=== PATIENT | female | born 1985 | race Caucasian/White ===

== ENCOUNTER → 2019-04-30 17:04 | Outpatient (CLI) | payer OTHER, SELFPAY ==
--- NOTE | 2019-04-30 17:35 | MRI_ITS ---
HISTORY: Multiple sclerosis. No new symptoms. Follow-up study. EXAM/TECHNIQUE: MR Brain WO/W Contrast: 1.5 Carola. Multiplanar, multisequence. Dotarem administered intravenously, dose not provided. COMPARISON: 04/16/18 MRI brain. FINDINGS: # of images incl. paperwork: 349 The number and distribution of supratentorial white matter lesions are not significantly changed compared to the previous study. As before these are scattered throughout the subcortical, centrum semiovale, bryant radiata, and callosal/pericallosal white matter. No new enhancement or restricted diffusion. Again demonstrated is faint enhancement within the anteromedial left temporal cortex, series 10 image is 9 and 10 and series 11 images 11-14. No associated mass-effect, no appreciable signal abnormality on the other sequences in this location. The posterior fossa is unremarkable. Mild hyperostosis frontalis, otherwise the calvarium is unremarkable. Paranasal sinuses, mastoid air cells patent. Major flow voids preserved. MRI/Brain W/WO Contrast IMPRESSION: No significant change compared to 04/16/18. Chronic white matter lesions compatible with MS similar to previous. Faint enhancing lesion in the anteromedial left temporal cortex, unchanged. The lack of mass-effect and lack of appreciable signal abnormality on other sequences suggest that this is a chronic incidental vascular or other benign lesion. It would be very unusual for a demyelinating plaque to enhance for this long. Neoplasm also unlikely. Continued attention to this area on follow-up is suggested. at 1950 Reported and signed by: Roshan Grigsby MD Electronically Signed: Roshan Grigsby, at 19:48 EDT Tel , Service support ,
== END ==
PROVIDERS: Family Provider Family Medicine; PCP Family Medicine
DX: G35 Multiple sclerosis (principal)
CPT/HCPCS: 70553; A9575

== ENCOUNTER → 2019-12-10 08:20 | Outpatient (CLI) | payer OTHER, SELFPAY ==
[2019-12-10 09:18] LABS: Cholesterol 169 mg/dL (200); High Density Lipoprotein 70 mg/dL; Thyroid Stim Hormone (TSH) 0.17 uIU/mL (0.358-3.74); Triglycerides 148 mg/dL; Very Low Density Lipoprotein 30 mg/dL (5-40)
[2019-12-10 09:20] LABS: Hemoglobin A1c 5.1 % (4.2-6.3)
== END ==
PROVIDERS: PCP Family Medicine; Referring Provider Family Medicine; Visit Provider Family Medicine
DX: E89.0 Postprocedural hypothyroidism (principal); E78.2 Mixed hyperlipidemia; Z13.1 Encounter for screening for diabetes mellitus
CPT/HCPCS: 36415; 80061; 83036; 84443

== ENCOUNTER → 2020-02-15 08:41 | Outpatient (CLI) | payer OTHER, SELFPAY ==
[2016-07-03 07:41] VITALS: BMI 37.8
[2020-02-15 09:44] LABS: Thyroid Stim Hormone (TSH) 0.18 uIU/mL (0.358-3.74)
== END ==
PROVIDERS: PCP Family Medicine; Referring Provider Family Medicine; Visit Provider Family Medicine
DX: E89.0 Postprocedural hypothyroidism (principal)
CPT/HCPCS: 36415; 84443

== ENCOUNTER 2020-03-03 13:58 | Emergency (ER) | payer OTHER, SELFPAY ==
[2020-03-03 13:59] VITALS: BP 169/97; PULSE 115; RESP 17; TEMP 36.8; O2SAT 98; BMI 40.4
--- NOTE | 2020-03-03 14:01 | NURSING ---
NO OLD EKGS
--- NOTE | 2020-03-03 14:11 | EKG12_ITS ---
Test Reason : CP Blood Pressure : / mmHG Vent. Rate : 117 BPM Atrial Rate : 117 BPM P-R Int : 142 ms QRS Dur : 142 ms QT Int : 360 ms P-R-T Axes : 047 -31 077 degrees QTc Int : 502 ms Sinus tachycardia Left axis deviation Left bundle branch block Abnormal ECG Confirmed by JEFFERSON REN ([id number]), news videotape editor DAVID TATUM ([id number]) on 03/07/2020 11:25:33 AM Referred By: Confirmed By:JEFFERSON REN
[2020-03-03 14:20] LABS: Absolute Lymphocyte Count 0.89 X10^3/uL (0.83-4.51); Absolute Neutrophil Count 5.7 X10^3/uL (2.0-7.7); Basophil# 0.02 X10^3/uL; Basophil% 0.3 % (0-1); Eosinophil# 0.08 X10^3/uL; Eosinophils% 1.1 % (0-5); Hematocrit 40.5 % (37-47); Hemoglobin 13.7 g/dL (12.0-15.0); Lymphocyte # 0.89 X10^3/ul (4.0); Lymphocyte % 12.4 % (19-41); Mean Corp Hgb Conc 33.8 g/dL (32-36); Mean Corpuscular Volume 85.6 fL (81-99); Mean Platelet Vol. 10.1 fl (6.2-12.0); Monocyte# 0.47 X10^3/uL; Monocyte% 6.5 % (0-10); NRBC Flagged by Analyzer 0 % (0-5); Neutrophil % 79.4 % (47-70); Platelet Count 333 K/mm3 (150-450); RBC Distribution Width CV 12.5 % (11.6-14.6); RBC Distribution Width SD 38.6 fl (35.1-43.9); Red Blood Count 4.73 M/mm3 (4.2-5.4); White Blood Count 7.2 K/mm3 (4.4-11.0)
[2020-03-03 14:26] VITALS: BP 169/97; PULSE 103; RESP 18; O2SAT 96
--- NOTE | 2020-03-03 14:29 | RAD_ITS ---
STUDY: X-RAY CHEST REASON FOR EXAM: Female, 34 years old. CHEST PAIN AND PALPITATIONS WITH PALPITATIONS STARTING YESTERDAY -- HX cardiomyapathy-from broken heart syndrome, TAKOSUBTO TECHNIQUE: Single AP portable view of the chest. COMPARISON: None. FINDINGS: EKG electrodes are seen. The lungs are clear and expanded. There is no demonstrated pleural abnormality. Normal size heart. Normal mediastinum and mateo. Normal visualized pulmonary arteries. Normal visualized aortic arch and descending thoracic aorta. Normal visualized thoracic spine. Normal visualized ribs, clavicles, and shoulders. There is no demonstrated abnormality of the visualized soft tissue structures of the upper abdomen. RAD/Chest 1 View (Portable) IMPRESSION: Normal x-ray examination of the chest. Electronically Signed: Rex Bach, at 14:41 EDT , Service support ,
[2020-03-03 14:35] LABS: D-Dimer Quantitative (DVT/PE) <= 0.27 FEU/ug/m (0.27-0.49)
--- NOTE | 2020-03-03 14:35 | ED.VISSUMM ---
- ER Visit Summary Date of Service: 03/03/20 Chief Complaint: [Palpitations] History of Present Illness: The patient is a 34 F [presents to the emergency department with complaint of palpitations that started yesterday. Patient attributed to increase stress at work. Patient states she does not drink excessive caffeine and normally just drinks a cup of coffee per day. Patient denies any palpitations today since waking up this morning. Patient is concerned because she has a history of broken heart syndrome. Patient has history of cardiomyopathy. Patient states normally her ejection fraction is 35 to 40%. Patient also has history of MS as well as anxiety and hypothyroidism. Patient recently had a TSH that was very low at 0.18 and had her levothyroxine dose decreased. She denies recent illness.] Physical Examination: [HEENT-PERRLA, EOMI. Cranial nerves II through XII grossly intact. TMs clear. Mucous membranes moist. No adenopathy. Cardiovascular-regular rate and rhythm without murmur or ectopy Lungs-clear to auscultation, chest wall stable without crepitus or subcu emphysema Abdomen-normoactive bowel sounds, soft, nontender, no rebound or rigidity, no peritoneal signs. Extremities-intact ?4, normal range of motion, normal pulses, atraumatic] Test Results: [EKG obtained arrival showed a sinus rhythm with a ventricular rate of 117 bpm with a left bundle branch block.] CBC with differential obtained was normal. Chemistries unremarkable. Troponin less than 0.15. D-dimer was less than 0.27. Chest x-ray showed nothing acute. Emergency Department Course and Treatment: [Had an IV line established on arrival and placed on quality assurance monitor final.] Treatment Plan: [Patient advised to follow-up with her director of academic support within next 3 to 5 days. Patient is advised to decrease her caffeine intake. Patient advised to continue with her current medications. Advised to return if chest pain, palpitations, increasing shortness of breath, or condition should worsen anyway.] Patient to continue to follow-up with her primary care physician regarding her thyroid medications as they may need further adjustment. Disposition: [Discharged home in stable condition] Impression: [Palpitations-resolved] This note was generated with [employer] software. It may contain incorrect words, spelling, and punctuation that were not noted in review of the chart prior to signing ED Disposition - Plan for ED Patient: Referrals: Isael Morrissey MD [Primary Care Provider] -
[2020-03-03 14:37] LABS: Anion Gap 9 (5-15); BUN 8 mg/dL (7-18); BUN/Creat Ratio 8.9 RATIO (10-20); Calcium,Total 9.3 mg/dL (8.5-10.1); Chloride 104 mmol/L (98-107); EST Glomerular Filtration Rate 76 mL/min (>60); Est Glom Filt Rate - Afr Amer 91 mL/min (>60); Estimated Creatinine Clearance 93.45 ml/min; Glucose 149 mg/dL (74-106); Potassium 4.2 mmol/L (3.5-5.1); Sodium Level 137 mmol/L (136-145)
--- NOTE | 2020-03-03 15:24 | ED.DEP ---
ED Disposition - Plan for ED Patient: Instructions: ED Palpitations Referrals: Isael Morrissey MD [Primary Care Provider] - 3-5 Days Additional Instructions: see your software integration developer if symptoms persist
[2020-03-03 15:35] VITALS: BP 146/88; PULSE 104; RESP 18; O2SAT 97
[2020-03-03 15:37] VITALS: RESP 16
== END 2020-03-03 15:37 | disposition home or self-care (01) ==
PROVIDERS: Emergency Provider Emergency Medicine; PCP Family Medicine
DX: R00.2 Palpitations (principal); I44.7 Left bundle-branch block, unspecified; F41.9 Anxiety disorder, unspecified; E03.9 Hypothyroidism, unspecified; G35 Multiple sclerosis
CPT/HCPCS: 71045; 80048; 84484; 85025; 85379; 93005; 99282; A4216

== ENCOUNTER → 2020-04-19 09:24 | Outpatient (CLI) | payer OTHER, SELFPAY ==
[2020-04-19 10:40] LABS: Thyroid Stim Hormone (TSH) 2.86 uIU/mL (0.358-3.74)
== END ==
PROVIDERS: PCP Family Medicine; Referring Provider Family Medicine; Visit Provider Family Medicine
DX: E89.0 Postprocedural hypothyroidism (principal)
CPT/HCPCS: 36415; 84443

== ENCOUNTER → 2020-06-06 09:22 | Outpatient (CLI) | payer OTHER, SELFPAY ==
[2020-06-02 15:51] VITALS: BMI 37.8
== END ==
PROVIDERS: PCP Family Medicine; Referring Provider Internal Medicine Cardiovascular Disease; Visit Provider Internal Medicine Cardiovascular Disease
DX: R00.2 Palpitations (principal)
CPT/HCPCS: 93225; 93226

== ENCOUNTER → 2020-06-07 08:29 | Outpatient (CLI) | payer OTHER, SELFPAY ==
[2020-06-02 15:51] VITALS: BMI 37.8
[2020-06-07 09:47] LABS: Thyroid Stim Hormone (TSH) 2.81 uIU/mL (0.358-3.74)
== END ==
PROVIDERS: PCP Family Medicine; Visit Provider Family Medicine
DX: G35 Multiple sclerosis (principal); Z79.899 Other long term (current) drug therapy; I10 Essential (primary) hypertension; E78.2 Mixed hyperlipidemia; E88.81 Metabolic syndrome and other insulin resistance; E89.0 Postprocedural hypothyroidism
CPT/HCPCS: 36415; 84443

== ENCOUNTER → 2020-06-21 06:49 | Outpatient (CLI) | payer OTHER, SELFPAY ==
[2020-06-02 15:51] VITALS: BMI 37.8
--- NOTE | 2020-06-21 06:50 | ECHOCS_ITS ---
Reason For Study: CARDIOMYOPATHY Procedure This was a 2D Doppler, Color Flow transthoracic echocardiogram. The study was technically difficult. Contrast injection was performed. Exam performed in department. Left Ventricle Normal LV size. Mild segmental systolic dysfunction (see wall motion). The estimated ejection fraction is 40 %. No evidence for diastolic dysfunction. Basal inferoseptal: Hypokinetic. Mid- Anterior : Akinetic. Mid-Inferior: Hypokinetic. Mid-inferoseptal : Hypokinetic. Mid-anteroseptal : Akinetic. Anterior Holden : Akinetic. Inferior Holden : Hypokinetic. Lateral Holden : Akinetic. Septal Holden : Akinetic. Right Ventricle Normal RV size. Normal systolic function. Atria Normal left atrium. Normal right atrium. No doppler evidence for ASD. Mitral Valve There is no mitral annular calcification. Normal mitral valve. Trivial mitral valve insufficiency. Tricuspid Valve Normal tricuspid valve. Trivial tricuspid valve insufficiency. Right ventricular systolic pressure estimated to be 17 mmHg. Aortic Valve Based upon the 2D echocardiographic images obtained a bicuspid aortic valve cannot necessarily be excluded. Pulmonic Valve The pulmonic valve is not well visualized. Trivial pulmonic valve insufficiency. Great Vessels Normal sized aortic root. Pericardium/Pleural No pericardial effusion. Medication Diluted definity 3ml given slow IV push to enhance endocardial definition. MMode/2D Measurements & Calculations LVIDd: 5.5 cm IVSd: 0.77 cm Ao root diam: 2.9 cm LVIDs: 4.0 cm LVPWd: 0.86 cm RVDd: 2.5 cm FS: 28.0 % LAV(MOD-bp): 40.8 ml LVAd ap4: 43.4 cm2 SV(MOD-sp4): 86.1 ml LAV(MOD-bp) Indexed: 17.6 ml/m2 EDV(MOD-sp4): 173.0 ml LAV(MOD-sp2): 54.1 ml EDV(sp4-el): 176.7 ml LAV(MOD-sp4): 25.3 ml LVAs ap4: 29.3 cm2 ESV(MOD-sp4): 86.9 ml ESV(sp4-el): 88.8 ml EF(MOD-sp4): 49.8 % EF(sp4-el): 49.8 % SV(sp4-el): 88.0 ml LA A4 area: 11.3 cm2 LA dimension(2D): 3.6 cm RA A4 area: 7.3 cm2 Time Measurements MV dec time: 0.20 sec Doppler Measurements & Calculations MV E max galen: 86.2 cm/sec Lat Peak E' Galen: 10.0 cm/sec Med Peak E' Galen: 7.4 cm/sec MV A max galen: 71.7 cm/sec E/E' lat: 8.6 E/E' med: 11.6 MV E/A: 1.2 Ao V2 max: 142.6 cm/sec LV V1 max: 137.7 cm/sec PA V2 max: 109.2 cm/sec Ao max P.1 mmHg LV V1 max P.6 mmHg TR max galen: 186.0 cm/sec TR max P.8 mmHg Interpretation Summary The study was technically difficult. Contrast injection was performed. Mild segmental systolic dysfunction (see wall motion). The estimated ejection fraction is 40 %. Trivial mitral valve insufficiency. Trivial tricuspid valve insufficiency. Based upon the 2D echocardiographic images obtained a bicuspid aortic valve cannot necessarily be excluded. Trivial pulmonic valve insufficiency. Right ventricular systolic pressure estimated to be 17 mmHg. No evidence for diastolic dysfunction. Ordering Physician: Alfredito Hassan Referring Physician: MAKENNA FISH Performed By: Aida Michelle RDCS
--- NOTE | 2020-06-21 08:32 | STRESSREP ---
Stress Test Report Date: 06-21-2020 Procedure: Pharmacologic stress nuclear imaging study Indications: Chest pain; abnormal ECG-left bundle branch block; history of Takotsubo Syndrome Consent: Per the patient Procedure: The patient underwent pharmacologic (Regadenoson) evaluation with a peak heart rate of 105 beats per minute (57 %predicted maximal heart rate) and a peak blood pressure of 110/80 mmHg. The baseline ECG demonstrated sinus rhythm; left bundle branch block. The peak pharmacologic ECG demonstrated no obvious ECG changes. There were no cardiac dysrhythmias pretest, during pharmacologic infusion, or recovery. There was no complaint of chest discomfort during pharmacologic infusion or recovery. The examination was discontinued secondary to completion of protocol. Impression: 1. Pharmacologic (Regadenoson) evaluation 2. Peak pharmacologic ECG with continued left bundle branch block with no obvious ECG changes. 3. There were no cardiac dysrhythmias pretest, during pharmacologic infusion, or recovery. 4. Nuclear images pending Myocardial perfusion imaging study: Technique: The patient was injected with 14.5 millicuries of technetium 99m Cardiolite and subsequently rest SPECT Cardiolite nuclear imaging was obtained in the horizontal long, vertical long, and short axis views. The patient underwent pharmacologic (Regadenoson) evaluation with a peak heart rate of 105 beats per minute (57 % percent predicted maximal heart rate) and a peak blood pressure of 110/80 mmHg. The patient was injected with 44.8 millicuries of technetium 99m Cardiolite and subsequently stress SPECT Cardiolite nuclear imaging was obtained in the horizontal long, vertical long, and short axis views. A gated Cardiolite study at peak stress was obtained. Interpretation: Rest and stress SPECT Cardiolite nuclear imaging status post realignment, normalization, and attenuation correction demonstrate diminished absence of myocardial perfusion/tracer uptake in portions of the mid to distal anterior, mid to distal anteroseptal, anterior apical, and septal apical segments without significant change between rest and stress. There is diminished end systolic thickening and brightening in the aforementioned areas. The gated Cardiolite study demonstrates diminished myocardial thickening and inward wall motion. The reported LVEF is 41 %. Impression: 1. And stress SPECT Cardiolite nuclear imaging demonstrate myocardial perfusion changes appearing compatible with the effects of previous myocardial injury/infarction involving portions of the mid to distal anterior, mid to distal anteroseptal, anteroapical, and septal apical segments with no myocardial perfusion changes considered diagnostic for associated stress-induced myocardial ischemia. 2. The gated Cardiolite study reports an LVEF of 41 %. This note was generated with [employer] software. It may contain incorrect words, spelling, and punctuation that were not noted in checking the note before signing.
== END ==
PROVIDERS: PCP Family Medicine; Referring Provider Internal Medicine Cardiovascular Disease; Visit Provider Internal Medicine Cardiovascular Disease
DX: I11.0 Hypertensive heart disease with heart failure (principal); I50.22 Chronic systolic (congestive) heart failure; I44.7 Left bundle-branch block, unspecified; R00.2 Palpitations; E78.2 Mixed hyperlipidemia
CPT/HCPCS: 78452; 93017; 93306; A9500; Q9957; A4216; C8929; J2785

== ENCOUNTER 2020-10-13 12:21 | Outpatient (CLI) | payer OTHER, SELFPAY ==
[2020-10-12 11:45] VITALS: BMI 36.0
[2020-10-13 12:33] VITALS: BP 120/88; PULSE 90; RESP 20; TEMP 36.5; O2SAT 99; BMI 36.3
[2020-10-13 13:29] VITALS: BP 117/79; PULSE 82; RESP 18; TEMP 36.4; O2SAT 99
[2020-10-13 13:59] VITALS: BP 120/76; PULSE 83; RESP 18; TEMP 36.3; O2SAT 100
[2020-10-13 14:10] VITALS: BP 125/80; PULSE 84; RESP 18; TEMP 36.4; O2SAT 100
[2020-10-13 15:01] VITALS: BP 123/85; PULSE 84; RESP 18; TEMP 37; O2SAT 100
[2020-10-13 15:10] VITALS: BP 123/85; PULSE 84; RESP 18; TEMP 37; O2SAT 100
== END 2020-10-13 15:04 | disposition home or self-care (01) ==
PROVIDERS: PCP Family Medicine; Referring Provider Nurse Practitioner Acute Care; Visit Provider Nurse Practitioner Acute Care
DX: U07.1 COVID-19 (principal)
CPT/HCPCS: 96365; J7050; M0239; Q0239

== ENCOUNTER → 2020-11-11 08:55 | Outpatient (CLI) | payer OTHER, SELFPAY ==
[2020-10-13 12:33] VITALS: BMI 36.3
--- NOTE | 2020-11-11 08:57 | US_ITS ---
STUDY: ABDOMINAL ULTRASOUND REASON FOR EXAM: Female, 35 years old. LLQ PAIN TECHNIQUE: Transabdominal ultrasound was performed with real-time and static loomis scale imaging. TECHNICAL QUALITY: Adequate. COMPARISON: Comparison is made with prior study dated 09/15/2016. FINDINGS: Liver: The liver measures 17.4 cm. There is increased echogenicity consistent with fatty infiltration. The bile ducts are within normal limits. There is hepatic color flow. The direction of portal flow is hepatopetal. There is no demonstrated mass lesion. Portal vein measurement: Gallbladder: Normal distended gallbladder. The gallbladder wall measures 2.7 mm. There is a negative sonographic Overton''s sign. There is no pericholecystic fluid. There are no gallstones. Common Bile Duct (C.B.D.): The common bile duct measures 5.0 mm. Pancreas: Normal size of the head, body and tail of the pancreas. There is normal echogenicity of the pancreas. There is no demonstrated pancreatic mass or cyst. Spleen: Normal size of the spleen. The spleen measures 11.8 cm x 4.6 cm x 4.7 cm. Right Kidney: Normal size of the right kidney. The right kidney measures 13.8 cm x 6.2 cm x 5.3 cm. Normal renal cortex. The right cortex measures 1.8 cm. There is no demonstrated renal mass or cyst. There is no right hydronephrosis. Left Kidney: Normal size of the left kidney. The left kidney measures 12.5 cm x 5.7 cm x 5.7 cm. Normal renal cortex. The left cortex measures 2.5 cm. There is no demonstrated renal mass or cyst. There is no left hydronephrosis. Aorta: Unremarkable I.V.C.: The IVC is patent. There is no ascites. US/Abdomen Complete IMPRESSION: Fatty infiltration of the liver. Electronically Signed: Rex Bach MD at 10:36 EST , Service support ,
--- NOTE | 2020-11-11 12:06 | US_ITS ---
STUDY: ULTRASOUND OF THE FEMALE PELVIS - COMPLETE REASON FOR EXAM: Female, 35 years old. LLQ PAIN LMP: 10/21/2020 TECHNIQUE: Transabdominal and Transvaginal TECHNICAL QUALITY: Adequate. COMPARISON: None. FINDINGS: The uterus is retroverted and is in a midline position. The uterus measures 8.2 cm x 4.8 cm x 2.9 cm. Normal uterine cervix. The endometrium measures 5 mm in thickness, and is hyperechoic. There is no demonstrated endometrial mass. There is no demonstrated myometrial mass. I.U.D. - The patient does not have an I.U.D. The right ovary is visualized. The right ovary measures 2.5 cm x 2.2 cm x 1.7 cm. There is no right ovarian cyst or ovarian mass. There is no visualized right adnexal mass or complex lesion. There is normal arterial and normal venous vascularity. The left ovary is visualized. The left ovary measures 2.4 cm x 2.1 cm x 1.4 cm. There is no left ovarian cyst or ovarian mass. There is no visualized left adnexal mass or complex lesion. There is normal arterial and normal venous vascularity. There is no fluid in the cul-de-sac. The pre void volume of the bladder was 1064 ml. Polycystic ovary disease: No. US/Pelvic (Non ) IMPRESSION: Normal female pelvis. Electronically Signed: Rex Bach MD at 14:41 EST , Service support ,
--- NOTE | 2020-11-11 12:06 | US_ITS ---
STUDY: ULTRASOUND OF THE FEMALE PELVIS - COMPLETE REASON FOR EXAM: Female, 35 years old. LLQ PAIN LMP: 10/21/2020 TECHNIQUE: Transabdominal and Transvaginal TECHNICAL QUALITY: Adequate. COMPARISON: None. FINDINGS: The uterus is retroverted and is in a midline position. The uterus measures 8.2 cm x 4.8 cm x 2.9 cm. Normal uterine cervix. The endometrium measures 5 mm in thickness, and is hyperechoic. There is no demonstrated endometrial mass. There is no demonstrated myometrial mass. I.U.D. - The patient does not have an I.U.D. The right ovary is visualized. The right ovary measures 2.5 cm x 2.2 cm x 1.7 cm. There is no right ovarian cyst or ovarian mass. There is no visualized right adnexal mass or complex lesion. There is normal arterial and normal venous vascularity. The left ovary is visualized. The left ovary measures 2.4 cm x 2.1 cm x 1.4 cm. There is no left ovarian cyst or ovarian mass. There is no visualized left adnexal mass or complex lesion. There is normal arterial and normal venous vascularity. There is no fluid in the cul-de-sac. The pre void volume of the bladder was 1064 ml. Polycystic ovary disease: No. US/Transvaginal Non- IMPRESSION: Normal female pelvis. Electronically Signed: Rex Bach MD at 14:41 EST , Service support ,
== END ==
PROVIDERS: PCP Family Medicine; Referring Provider Family Medicine; Visit Provider Family Medicine
DX: R10.32 Left lower quadrant pain (principal)
CPT/HCPCS: 76700; 76830; 76856; 93976

== ENCOUNTER → 2020-11-24 13:17 | Outpatient (CLI) | payer OTHER, SELFPAY ==
--- NOTE | 2020-11-24 16:45 | MRI_ITS ---
STUDY: MRI BRAIN WITH AND WITHOUT CONTRAST REASON FOR EXAM: Female, 35 years old. Multiple sclerosis, new symptoms TECHNIQUE: Standardized multiplanar fat and water weighted pulse sequences were obtained. 20ml Dotarem via IV was administered for the contrast portion of the examination. COMPARISON: 04/30/2019 FINDINGS: Normal size of the ventricles and extra-axial spaces for the patient''s age. There are multiple foci of increased signal intensity within the periventricular white matter on the FLAIR and T2-weighted imaging sequences without mass effect or restricted diffusion. Some of the lesions involving the callosal septal interface and are consistent with multiple sclerosis Normal bilateral basal ganglia. Normal thalami. There is no extra-axial fluid accumulation. Normal flow voids within the major intracranial circulation suggesting patency by spin echo criteria. Normal venous enhancement. There are no enhancing plaques to suggest the presence of acute demyelination.. Normal sella turcica, pituitary gland, infundibular stalk, optic chiasm and hypothalamus. Normal tectal plate and pineal gland. Normal midbrain, shazia and medulla. Normal cerebellum. Normal basal cisterns. Normal bilateral temporal bones. Normal bilateral internal auditory canals. No demonstrated orbital abnormality, within the constraints of a routine brain study. Normal visualized paranasal sinuses. Normal calvarium and skull base. Normal visualized soft tissue structures. Normal visualized upper cervical spine. No significant change in plaque burden since previous exam MRI/Brain W/WO Contrast IMPRESSION: Findings consistent with known multiple sclerosis which appears stable since previous study. No evidence for active demyelination Electronically Signed: Isael Pelayo MD at 19:52 EST , Service support ,
--- NOTE | 2020-11-24 17:30 | MRI_ITS ---
STUDY: MRI CERVICAL SPINE WITH AND WITHOUT CONTRAST REASON FOR EXAM: Female, 35 years old. Multiple sclerosis, new symptoms TECHNIQUE: Standardized fat and water weighted pulse sequences were obtained in the sagittal and axial following administration of 20ml Dotarem via IV. COMPARISON: None FINDINGS: Normal foramen magnum and brainstem-cervical cord junction. Normal craniovertebral junction. Normal anterior atlantoaxial articulation. Normal odontoid process. Normal cervical lordosis. Normal vertebral bodies and posterior osseous elements. C2-3: Normal endplates. Normal disc height, signal and morphology. Normal central canal and intervertebral neural foramina. C3-4: Normal endplates. Normal disc height, signal and morphology. Normal central canal and intervertebral neural foramina. C4-5: Normal endplates. Normal disc height, signal and morphology. Normal central canal and intervertebral neural foramina. C5-6: Normal endplates. Normal disc height, signal and morphology. Normal central canal and intervertebral neural foramina. C6-7: Normal endplates. Normal disc height, signal and morphology. Normal central canal and intervertebral neural foramina. C7-T1: Normal endplates. Normal disc height, signal and morphology. Normal central canal and intervertebral neural foramina. Normal cervical cord. Normal visualized soft tissue structures. MRI/Spine Cervical W/WO Contrast IMPRESSION: Normal unenhanced and enhanced MR examination of the cervical spine. Electronically Signed: Isael Pelayo MD at 20:42 EST , Service support ,
--- NOTE | 2020-11-24 18:15 | MRI_ITS ---
STUDY: MRI THORACIC SPINE WITH AND WITHOUT CONTRAST REASON FOR EXAM: Female, 35 years old. Multiple sclerosis, new symptoms TECHNIQUE: 20ml Dotarem via IV was administered for the contrast portion of the examination. COMPARISON: None. FINDINGS: Normal kyphosis of the thoracic spine. There is no substantial scoliosis. T1-2, T2-3, T3-4, T4-5, T5-6, T6-7, T7-8, T8-9, T9-10, T10-11, T11-12: Normal endplates. Normal disc hydration, heights and morphology of the corresponding intervertebral discs. Normal central canal and intervertebral neural foramina at the corresponding levels. Normal visualized thoracic cord. Normal conus medullaris that terminates at the . The soft tissue structures are unremarkable. There is no enhancing abnormality. MRI/Spine Thoracic W/WO Contrast IMPRESSION: Normal unenhanced and enhanced MRI examination of the thoracic spine. Electronically Signed: Isael Pelayo MD at 20:44 EST , Service support ,
== END ==
PROVIDERS: PCP Family Medicine
DX: G35 Multiple sclerosis (principal)
CPT/HCPCS: 70553; 72156; 72157; A9575

== ENCOUNTER → 2021-01-13 06:45 | Outpatient (CLI) | payer OTHER, SELFPAY ==
[2020-12-01 16:28] VITALS: BMI 36.5
[2021-01-13 06:49] LABS: Mucous, Urine 0 SEEN /hpf (<or=2+); Red Blood Cells-Urine 0 SEEN /hpf (0-5); White Blood Cells 0 SEEN /hpf (0-5)
[2021-01-13 07:16] LABS: Absolute Lymphocyte Count 1.13 X10^3/uL (0.83-4.51); Absolute Neutrophil Count 3.2 X10^3/uL (2.0-7.7); Basophil# 0.02 X10^3/uL; Basophil% 0.4 % (0-1); Color, Urine Yellow (Yellow); Eosinophil# 0.13 X10^3/uL; Eosinophils% 2.6 % (0-5); Glucose, Dipstick Normal (Normal); Hematocrit 40.1 % (37-47); Hemoglobin 13.3 g/dL (12.0-15.0); Ketone-Dipstick Negative (Negative); Leukocyte Esterase-Dipstick Negative /ul (Negative); Lymphocyte # 1.13 X10^3/ul (4.0); Lymphocyte % 22.6 % (19-41); Mean Corp Hgb Conc 33.2 g/dL (32-36); Mean Corpuscular Hgb 29.3 pg (27.0-32.0); Mean Corpuscular Volume 88.3 fL (81-99); Mean Platelet Vol. 10.5 fl (6.2-12.0); Monocyte# 0.48 X10^3/uL; Monocyte% 9.6 % (0-10); NRBC Flagged by Analyzer 0 % (0-5); Neutrophil # 3.22 X10^3/uL (2.7-7.7); Neutrophil % 64.6 % (47-70); Nitrite-Dipstick Negative (Negative); Occult Blood-Urine Negative /ul (Negative); Platelet Count 305 K/mm3 (150-450); Protein-Dipstick Negative (Negative); RBC Distribution Width CV 12.4 % (11.6-14.6); RBC Distribution Width SD 39.9 fl (35.1-43.9); Red Blood Count 4.54 M/mm3 (4.2-5.4); Specific Gravity, Urine 1.015 (1.002-1.030); Urine Bilirubin Dipstick Negative (Negative); Urine Clarity Clear (Clear); Urine Urobilinogen Normal (Normal); Urine pH 6.5 (5.0 - 8.0)
[2021-01-13 07:23] LABS: Bacteria RARE /hpf (None Seen); Squamous Epithelial Cells - UA 0-5 SEEN /hpf (5-10)
[2021-01-13 07:46] LABS: AST(SGOT) 12 U/L (15-37); Alanine Aminotransfer ALT/SGPT 21 U/L (13-56); Albumin, Serum 4.1 g/dL (3.2-5.0); Alkaline Phosphatase 44 U/L (45-117); Anion Gap 5 (5-15); BUN 16 mg/dL (7-18); Calcium,Total 8.8 mg/dL (8.5-10.1); Chloride 103 mmol/L (98-107); Cholesterol 204 mg/dL (200); EST Glomerular Filtration Rate 85 mL/min (>60); Est Glom Filt Rate - Afr Amer 103 mL/min (>60); Globulin 4.3 g/dL (2.2-4.2); Glucose 97 mg/dL (74-106); High Density Lipoprotein 80 mg/dL; Potassium 4.1 mmol/L (3.5-5.1); Protein, Total 8.4 g/dL (6.4-8.2); Sodium Level 134 mmol/L (136-145); Triglycerides 146 mg/dL; Very Low Density Lipoprotein 29 mg/dL (5-40)
== END ==
PROVIDERS: PCP Family Medicine; Visit Provider Family Medicine
DX: I11.0 Hypertensive heart disease with heart failure (principal); I50.22 Chronic systolic (congestive) heart failure; E89.0 Postprocedural hypothyroidism; F41.1 Generalized anxiety disorder; E78.2 Mixed hyperlipidemia
CPT/HCPCS: 36415; 80053; 80061; 81001; 84443; 85025

== ENCOUNTER → 2021-03-09 12:47 | Outpatient (CLI) | payer OTHER, SELFPAY ==
[2020-12-01 16:28] VITALS: BMI 36.5
[2021-03-09 14:42] LABS: T4 Free Direct 1.04 ng/dL (0.76-1.46); Thyroid Stim Hormone (TSH) 3.97 uIU/mL (0.358-3.74)
== END ==
PROVIDERS: PCP Family Medicine; Referring Provider Physician Assistant; Visit Provider Physician Assistant
DX: E89.0 Postprocedural hypothyroidism (principal)
CPT/HCPCS: 36415; 84439; 84443

== ENCOUNTER → 2021-04-04 10:29 | Outpatient (CLI) | payer OTHER, SELFPAY ==
[2020-12-01 16:28] VITALS: BMI 36.5
[2021-03-30 16:17] VITALS: BMI 36.9
[2021-04-04 12:17] LABS: Thyroid Stim Hormone (TSH) 6.41 uIU/mL (0.358-3.74)
== END ==
LOC: LAB.FUTURE 10:30 → LAB 10:34
PROVIDERS: PCP Family Medicine; Referring Provider Physician Assistant; Visit Provider Physician Assistant
DX: E89.0 Postprocedural hypothyroidism (principal)
CPT/HCPCS: 36415; 84443

== ENCOUNTER → 2021-04-12 07:55 | Outpatient (CLI) | payer OTHER, SELFPAY ==
[2021-03-30 16:17] VITALS: BMI 36.9
--- NOTE | 2021-04-12 07:57 | ECHOD_ITS ---
Reason For Study: TAKOTSUBO SYNDROME Procedure This was a 2D Doppler, Color Flow transthoracic echocardiogram. The study was technically difficult. Exam performed in department. Left Ventricle Normal LV size. Mild segmental systolic dysfunction (see wall motion). The estimated ejection fraction is 45 %. Diastolic function is indeterminate. Infero-Basal: Hypokinetic. Basal inferoseptal: Hypokinetic. Mid-Posterior: Hypokinetic. Mid-Inferior: Hypokinetic. Mid-inferoseptal : Hypokinetic. Mid-anteroseptal : Akinetic. [place] : Hypokinetic. Right Ventricle Normal RV size. Normal systolic function. Atria Normal left atrium. Normal right atrium. No doppler evidence for ASD. Mitral Valve There is no mitral annular calcification. Normal mitral valve. Trivial mitral valve insufficiency. Tricuspid Valve Normal tricuspid valve. Trivial tricuspid valve insufficiency. Unable to estimate RV systolic pressure/pulmonary artery pressure due to technically difficult study. Aortic Valve Trisinus/trileaflet aortic valve. Mild focal aortic valve calcification. Pulmonic Valve The pulmonic valve is not well visualized. Great Vessels Normal sized aortic root. Pericardium/Pleural No pericardial effusion. MMode/2D Measurements & Calculations LVIDd: 5.5 cm IVSd: 0.90 cm Ao root diam: 2.9 cm LVIDs: 4.1 cm LVPWd: 0.91 cm RVDd: 2.5 cm FS: 24.1 % LAV(MOD-bp): 39.6 ml LVAd ap4: 39.8 cm2 LVAd ap2: 39.9 cm2 LAV(MOD-bp) Indexed: 17.0 ml/m2 LVLd ap4: 9.2 cm LVLd ap2: 9.6 cm LAV(MOD-sp2): 40.2 ml EDV(MOD-sp4): 144.0 ml EDV(MOD-sp2): 143.1 ml LAV(MOD-sp4): 36.7 ml EDV(sp4-el): 147.3 ml EDV(sp2-el): 140.5 ml LVAs ap4: 29.4 cm2 LVAs ap2: 25.2 cm2 LVLs ap4: 8.3 cm LVLs ap2: 8.2 cm ESV(MOD-sp4): 86.6 ml ESV(MOD-sp2): 64.0 ml ESV(sp4-el): 88.7 ml ESV(sp2-el): 65.9 ml EF(MOD-sp4): 39.9 % EF(MOD-sp2): 55.2 % EF(sp4-el): 39.8 % SV(MOD-sp4): 57.4 ml SV(MOD-sp2): 79.0 ml SV(sp4-el): 58.6 ml LA dimension(2D): 4.1 cm LA A4 area: 14.6 cm2 RA A4 area: 8.9 cm2 Time Measurements MV dec time: 0.52 sec Doppler Measurements & Calculations MV E max galen: 67.7 cm/sec Lat Peak E' Galen: 8.6 cm/sec Med Peak E' Galen: 5.0 cm/sec MV A max galen: 84.8 cm/sec E/E' lat: 7.8 E/E' med: 13.6 MV E/A: 0.80 Ao V2 max: 137.4 cm/sec LV V1 max: 117.6 cm/sec PA V2 max: 84.6 cm/sec Ao max P.6 mmHg LV V1 max P.5 mmHg ECHO/Echo Complete Interpretation Summary The study was technically difficult. Mild segmental systolic dysfunction (see wall motion). The estimated ejection fraction is 45 %. Trivial mitral valve insufficiency. Trivial tricuspid valve insufficiency. Unable to estimate RV systolic pressure/pulmonary artery pressure due to techni morgan difficult study. Diastolic function is indeterminate. Ordering Physician: Alfredito Hassan Referring Physician: MAKENNA FISH Performed By: Alma Delia Courtney, CRISTEL, RVT
== END ==
PROVIDERS: PCP Family Medicine; Referring Provider Internal Medicine Cardiovascular Disease; Visit Provider Internal Medicine Cardiovascular Disease
DX: I51.81 Takotsubo syndrome (principal)
CPT/HCPCS: 93306

== ENCOUNTER → 2021-05-09 08:16 | Outpatient (CLI) | payer OTHER, SELFPAY ==
[2021-03-30 16:17] VITALS: BMI 36.9
[2021-05-09 10:25] LABS: T4 Free Direct 0.91 ng/dL (0.76-1.46); Thyroid Stim Hormone (TSH) 6.29 uIU/mL (0.358-3.74)
== END ==
PROVIDERS: PCP Family Medicine; Referring Provider Physician Assistant; Visit Provider Physician Assistant
DX: E89.0 Postprocedural hypothyroidism (principal)
CPT/HCPCS: 36415; 84439; 84443

== ENCOUNTER → 2021-05-23 08:00 | Outpatient (CLI) | payer OTHER, SELFPAY ==
[2021-03-30 16:17] VITALS: BMI 36.9
--- NOTE | 2021-05-23 08:04 | RAD_ITS ---
EXAMINATION: UPPER GI SERIES INDICATION: Female, 35 years abdominal pain for one month. FLUOROSCOPY TIME (if supplied): (1:00) minutes/seconds. 18 images were obtained. TECHNIQUE: Radiographic and fluoroscopic images of the distal esophagus, stomach, and proximal small intestine were obtained following the oral ingestion of barium. COMPARISON: None. FINDINGS: There is no evidence for organomegaly, abnormal calcifications, or abnormal bowel gas pattern. The psoas margins and flank stripes are normal. The visualized osseous structures are normal. The mucosa of the esophagus, stomach and duodenum is normal in appearance without evidence for stricture, ulceration, mass or diverticulum. There is no evidence for hiatal hernia or gastroesophageal reflux. RAD/Upper GI Single Contrast IMPRESSION: 1. Normal upper gastrointestinal study. Electronically Signed: Rex Bach MD at 9:26 EDT , Service support ,
== END ==
PROVIDERS: PCP Family Medicine
DX: K44.0 Diaphragmatic hernia with obstruction, without gangrene (principal)
CPT/HCPCS: 74240

== ENCOUNTER → 2021-07-21 06:37 | Outpatient (CLI) | payer OTHER, SELFPAY ==
[2020-12-01 16:28] VITALS: BMI 36.5
[2021-07-21 08:38] LABS: Thyroid Stim Hormone (TSH) 5.54 uIU/mL (0.358-3.74)
[2021-07-21 15:52] LABS: Cholesterol 208 mg/dL (200); High Density Lipoprotein 83 mg/dL; Triglycerides 104 mg/dL; Very Low Density Lipoprotein 21 mg/dL (5-40)
== END ==
PROVIDERS: PCP Family Medicine; Referring Provider Family Medicine; Visit Provider Family Medicine
DX: E89.0 Postprocedural hypothyroidism (principal); I10 Essential (primary) hypertension
CPT/HCPCS: 36415; 80061; 84443

== ENCOUNTER → 2021-08-08 07:57 | Outpatient (CLI) | payer OTHER, SELFPAY ==
--- NOTE | 2021-08-08 07:59 | ECHOLC_ITS ---
Reason For Study: CHF Procedure This was a limited 2D transthoracic echocardiogram. The study was technically difficult. Contrast injection was performed. Exam performed in department. Left Ventricle Normal LV size. Mild segmental systolic dysfunction (see wall motion). The estimated ejection fraction is 45 %. Unable to assess diastolic dysfunction. Infero-Basal: Hypokinetic. Basal inferoseptal: Hypokinetic. Mid-Anterior : Hypokinetic. Mid-Posterior: Hypokinetic. Mid-Inferior: Hypokinetic. Mid-inferoseptal : Akinetic. Mid-anteroseptal : Akinetic. Anterior Newton : Hypokinetic. Inferior Newton : Hypokinetic. Lateral Newton : Hypokinetic. Septal Newton : Akinetic. Right Ventricle Normal RV size. Normal systolic function. Atria Normal left atrium. Normal right atrium. No doppler evidence for ASD. Mitral Valve There is no mitral annular calcification. Normal mitral valve. Trivial mitral valve insufficiency. Tricuspid Valve Normal tricuspid valve. Trivial tricuspid valve insufficiency. Unable to estimate RV systolic pressure/pulmonary artery pressure due to technically difficult study. Aortic Valve Trisinus/trileaflet aortic valve. Mild focal aortic valve calcification. Pulmonic Valve The pulmonic valve is not well visualized. Trivial pulmonic valve insufficiency. Great Vessels The aortic root is not well visualized. Pericardium/Pleural No pericardial effusion. Medication 22 gauge I.V. with prn adaptor inserted into right arm. Diluted definity 3ml given slow IV push to enhance endocardial definition. MMode/2D Measurements & Calculations LVIDd: 4.7 cm IVSd: 1.1 cm LA dimension: 3.5 cm LVIDs: 3.6 cm LVPWd: 1.2 cm FS: 22.4 % LAV(MOD-sp4): 33.2 ml LVAd ap4: 46.1 cm2 SV(MOD-sp4): 86.3 ml LVLd ap4: 9.0 cm EDV(MOD-sp4): 190.0 ml EDV(sp4-el): 199.9 ml LVAs ap4: 31.5 cm2 LVLs ap4: 8.0 cm ESV(MOD-sp4): 103.7 ml ESV(sp4-el): 105.2 ml EF(MOD-sp4): 45.4 % EF(sp4-el): 47.4 % SV(sp4-el): 94.7 ml LA A4 area: 13.6 cm2 Doppler Measurements & Calculations Lat Peak E' Galen: 11.6 cm/sec Med Peak E' Galen: 5.9 cm/sec PA V2 max: 119.4 cm/sec ECHO/Echo Limited w/Contrast Interpretation Summary The study was technically difficult. Contrast injection was performed. Mild segmental systolic dysfunction (see wall motion). The estimated ejection fraction is 45 %. Trivial mitral valve insufficiency. Trivial tricuspid valve insufficiency. Mild focal aortic valve calcification. Trivial pulmonic valve insufficiency. Unable to estimate RV systolic pressure/pulmonary artery pressure due to techni morgan difficult study. Unable to assess diastolic dysfunction. Ordering Physician: Alfredito Hassan Referring Physician: MAKENNA FISH Performed By: Juan Weaver RCS
== END ==
PROVIDERS: PCP Family Medicine; Referring Provider Internal Medicine Cardiovascular Disease; Visit Provider Internal Medicine Cardiovascular Disease
DX: I50.22 Chronic systolic (congestive) heart failure (principal); I51.81 Takotsubo syndrome; I44.7 Left bundle-branch block, unspecified
CPT/HCPCS: 93308; Q9957; A4216; C8924; J3490

== ENCOUNTER → 2021-09-21 10:48 | Outpatient (CLI) | payer OTHER, SELFPAY | PROVIDERS: PCP Family Medicine; Referring Provider Family Medicine; Visit Provider Family Medicine | DX: E89.0 Postprocedural hypothyroidism (principal) | CPT/HCPCS: 36415; 84443 ==

== ENCOUNTER 2021-12-13 12:33 | Outpatient (CLI) | payer OTHER, SELFPAY ==
--- NOTE | 2021-12-13 12:37 | US_ITS ---
STUDY: THYROID ULTRASOUND REASON FOR EXAM: Female, 36 years old. Palpably enlarged thyroid TECHNIQUE: Ultrasound evaluation of the thyroid was performed with real-time and static loomis-scale imaging. COMPARISON: None. FINDINGS: RIGHT LOBE: The right lobe of the thyroid gland measures 2.9 x 0.8 x 0.8 cm. There is a heterogeneous echotexture. There are no demonstrated solid, cystic or complex lesions. LEFT LOBE: The left lobe of the thyroid gland measures 2.8 x 0.9 x 0.6 cm. There is a heterogeneous echotexture. There are no demonstrated solid, cystic or complex lesions. ISTHMUS: The isthmus measures . The regional lymph nodes are normal. US/Thyroid IMPRESSION: Normal sized heterogeneous thyroid gland without suspicious lesion or hyperemia. Electronically Signed: Jose Moralez MD at 10:04 EST ,
== END 2021-12-13 23:59 | disposition home or self-care (01) ==
LOC: US 12:34
PROVIDERS: PCP Family Medicine; Visit Provider Family Medicine
DX: E04.9 Nontoxic goiter, unspecified (principal)
CPT/HCPCS: 76536

== ENCOUNTER → 2022-01-23 07:00 | Outpatient (CLI) | payer OTHER, SELFPAY ==
--- NOTE | 2022-01-23 07:05 | MRI_ITS ---
EXAM: MR HEAD WITHOUT AND WITH INTRAVENOUS CONTRAST CLINICAL INDICATION: MS TECHNIQUE: Multiplanar and multisequence MR images of the brain were obtained without and with intravenous contrast. This report was created using [employer] report generation technology. CONTRAST: IV 24ML DOTAREM COMPARISON: MRI brain with and without contrast 11/24/2020. FINDINGS: BRAIN AND EXTRA-AXIAL SPACES: Subcortical white matter and periventricular white matter MS plaques are unchanged in size and number. None of them enhance with intravenous contrast. No abnormal enhancing lesions intraaxially and extra-axially. Normal ventricles and cisterns. No intra- or extra-axial hemorrhage. No evidence of acute infarct. No intracranial mass or mass effect. There is preservation of the loomis/white matter interface. Posterior fossa structures are unremarkable. SELLA: Unremarkable. Normal sella turcica, pituitary gland, infundibular stalk, optic chiasm and hypothalamus. AUDITORY SYSTEM: Unremarkable. The internal auditory canals are patent. BONES/JOINTS: Unremarkable. No discrete lytic or blastic abnormalities. SINUSES: Unremarkable as visualized. Clear. MASTOID AIR CELLS: Unremarkable as visualized. Clear. ORBITS: Unremarkable as visualized. Both globes, extraocular muscles, optic nerves and retrobulbar fat appear unremarkable. VASCULATURE: Unremarkable as visualized. Normal flow voids in the major intracranial circulation. MRI/Brain W/WO Contrast IMPRESSION: 1. No MRI evidence of active MS plaques. 2. No interval change in size and number of MS plaques in the white matter of both cerebral hemispheres when compared to 11/24/2020. 3. No new findings. Electronically Signed: Jono Bynum MD at 9:04 EDT ,
== END ==
PROVIDERS: PCP Family Medicine
DX: G35 Multiple sclerosis (principal)
CPT/HCPCS: 70553; A9575

== ENCOUNTER → 2022-01-26 | Outpatient (CLI) | payer OTHER, SELFPAY ==
[2022-01-26 07:41] LABS: Bacteria 0 SEEN /hpf (None Seen); Mucous, Urine 0 SEEN /hpf (<or=2+); Red Blood Cells-Urine 0 SEEN /hpf (0-5); White Blood Cells 0 SEEN /hpf (0-5)
[2022-01-26 08:01] LABS: Absolute Lymphocyte Count 1.14 X10^3/uL (0.83-4.51); Absolute Neutrophil Count 3.2 X10^3/uL (2.0-7.7); Basophil# 0.02 X10^3/uL; Basophil% 0.4 % (0-1); Eosinophil# 0.11 X10^3/uL; Eosinophils% 2.2 % (0-5); Hematocrit 39.1 % (37-47); Hemoglobin 13.2 g/dL (12.0-15.0); Lymphocyte # 1.14 X10^3/ul (0.83-4.51); Lymphocyte % 22.6 % (19-41); Mean Corp Hgb Conc 33.8 g/dL (32-36); Mean Corpuscular Hgb 29.2 pg (27.0-32.0); Mean Corpuscular Volume 86.5 fL (81-99); Mean Platelet Vol. 10.2 fl (6.2-12.0); Monocyte# 0.55 X10^3/uL; Monocyte% 10.9 % (0-10); NRBC Flagged by Analyzer 0 % (0-5); Neutrophil # 3.22 X10^3/uL (2.7-7.7); Neutrophil % 63.7 % (47-70); Platelet Count 306 K/mm3 (150-450); RBC Distribution Width SD 38.5 fl (35.1-43.9); Red Blood Count 4.52 M/mm3 (4.2-5.4); White Blood Count 5.1 K/mm3 (4.4-11.0)
[2022-01-26 08:04] LABS: Color, Urine Yellow (Yellow); Glucose, Dipstick Normal (Normal); Ketone-Dipstick Negative (Negative); Leukocyte Esterase-Dipstick Negative /ul (Negative); Nitrite-Dipstick Negative (Negative); Occult Blood-Urine Negative /ul (Negative); Protein-Dipstick Negative (Negative); Urine Bilirubin Dipstick Negative (Negative); Urine Clarity Sl. Cloudy (Clear); Urine Urobilinogen Normal (Normal)
[2022-01-26 08:14] LABS: Squamous Epithelial Cells - UA 0-5 SEEN /hpf (5-10)
[2022-01-26 08:26] LABS: Hemoglobin A1c 4.8 % (3.8-5.6)
[2022-01-26 08:36] LABS: AST(SGOT) 15 U/L (15-37); Alanine Aminotransfer ALT/SGPT 26 U/L (13-56); Albumin, Serum 3.9 g/dL (3.2-5.0); Alkaline Phosphatase 49 U/L (45-117); Anion Gap 5 (5-15); BUN 14 mg/dL (7-18); BUN/Creat Ratio 19.5 RATIO (10-20); Chloride 103 mmol/L (98-107); Cholesterol 181 mg/dL (200); Creatinine, Serum 0.72 mg/dL (0.55-1.02); EST Glomerular Filtration Rate 97 mL/min (>60); Est Glom Filt Rate - Afr Amer 117 mL/min (>60); Glucose 106 mg/dL (74-106); High Density Lipoprotein 67 mg/dL; Magnesium 1.9 mg/dL (1.6-2.6); Potassium 4.2 mmol/L (3.5-5.1); Protein, Total 7.9 g/dL (6.4-8.2); Sodium Level 137 mmol/L (136-145); Triglycerides 119 mg/dL; Very Low Density Lipoprotein 24 mg/dL (5-40)
== END | disposition home or self-care (01) ==
LOC: LAB 07:37
PROVIDERS: PCP Family Medicine; Referring Provider Family Medicine; Visit Provider Family Medicine
DX: E89.0 Postprocedural hypothyroidism (principal); E78.2 Mixed hyperlipidemia; I10 Essential (primary) hypertension; Z13.1 Encounter for screening for diabetes mellitus; K21.9 Gastro-esophageal reflux disease without esophagitis; Z79.899 Other long term (current) drug therapy
CPT/HCPCS: 36415; 80053; 80061; 81001; 83036; 83735; 84443; 85025

== ENCOUNTER → 2022-06-21 | Outpatient (CLI) | payer OTHER, SELFPAY ==
[2022-06-21 09:43] LABS: Absolute Lymphocyte Count 0.95 X10^3/uL (0.83-4.51); Absolute Neutrophil Count 3.6 X10^3/uL (2.0-7.7); Basophil# 0.03 X10^3/uL; Basophil% 0.6 % (0-1); Eosinophil# 0.09 X10^3/uL; Eosinophils% 1.7 % (0-5); Hematocrit 39.4 % (37-47); Hemoglobin 13.4 g/dL (12.0-15.0); Lymphocyte # 0.95 X10^3/ul (0.83-4.51); Mean Corpuscular Hgb 29.6 pg (27.0-32.0); Mean Corpuscular Volume 87.2 fL (81-99); Mean Platelet Vol. 10.3 fl (6.2-12.0); Monocyte# 0.57 X10^3/uL; Monocyte% 10.8 % (0-10); NRBC Flagged by Analyzer 0 % (0-5); Neutrophil # 3.62 X10^3/uL (2.7-7.7); Neutrophil % 68.7 % (47-70); Platelet Count 308 K/mm3 (150-450); RBC Distribution Width CV 12.5 % (11.6-14.6); RBC Distribution Width SD 39.9 fl (35.1-43.9); Red Blood Count 4.52 M/mm3 (4.2-5.4); White Blood Count 5.3 K/mm3 (4.4-11.0)
[2022-06-21 10:26] LABS: AST(SGOT) 15 U/L (15-37); Alanine Aminotransfer ALT/SGPT 21 U/L (13-56); Albumin, Serum 3.6 g/dL (3.2-5.0); Alkaline Phosphatase 51 U/L (45-117); Amylase 61 U/L (25-115); Bilirubin, Direct 0.08 mg/dL (0.00-0.30); Globulin 4.5 g/dL (2.2-4.2); Lipase 133 U/L (73-393); Protein, Total 8.1 g/dL (6.4-8.2)
== END | disposition home or self-care (01) ==
LOC: LAB 08:19
PROVIDERS: PCP Family Medicine; Referring Provider Family Medicine; Visit Provider Family Medicine
DX: R10.13 Epigastric pain (principal); R10.11 Right upper quadrant pain
CPT/HCPCS: 36415; 80076; 82150; 83690; 85025

== ENCOUNTER → 2022-07-09 | Outpatient (CLI) | payer OTHER, SELFPAY ==
--- NOTE | 2022-07-09 07:25 | US_ITS ---
STUDY: ABDOMINAL ULTRASOUND - RIGHT UPPER QUADRANT REASON FOR VISIT: Female, 37 years old . 2 1/2 month history of right upper quadrant pain and nausea. TECHNIQUE: Ultrasound evaluation of the right upper quadrant was performed with real-time and static loomis-scale imaging. TECHNICAL QUALITY: Adequate. COMPARISON: Comparison is made with prior study dated 11/11/2020. FINDINGS: Liver: The liver measures 16.5 cm. There is increased echogenicity consistent with fatty infiltration. The bile ducts are within normal limits. There is hepatic color flow. The direction of portal flow is hepatopetal. There is no demonstrated mass lesion. Gallbladder: Normal distended gallbladder. The gallbladder wall measures 2 mm. There is a negative sonographic Overton''s sign. There is no pericholecystic fluid. There are no gallstones. Common Bile Duct (C.B.D.): The common bile duct measures 3 mm. Pancreas: Normal size of the head, body and tail of the pancreas. There is normal echogenicity of the pancreas. There is no demonstrated pancreatic mass or cyst. Right Kidney: Normal size of the right kidney. The right kidney measures 13.4 cm x 6.7 cm x 5.3 cm. Normal renal cortex. The right cortex measures 1.5 cm. There is no demonstrated renal mass or cyst. There is no right hydronephrosis. US/Abdomen Limited IMPRESSION: Fatty infiltration of the liver. Electronically Signed: Rex Bach MD at 14:11 EDT ,
--- NOTE | 2022-07-09 08:30 | RAD_ITS ---
EXAMINATION: Air contrast UPPER GI SERIES INDICATION: Female, 37 years right upper quadrant pain. FLUOROSCOPY TIME (if supplied): (0:42) minutes/seconds. 30 images were obtained. TECHNIQUE: Radiographic and fluoroscopic images of the distal esophagus, stomach, and proximal small intestine were obtained following the oral ingestion of barium. COMPARISON: None. FINDINGS: There is no evidence for organomegaly, abnormal calcifications, or abnormal bowel gas pattern. The psoas margins and flank stripes are normal. The visualized osseous structures are normal. The mucosa of the esophagus, stomach and duodenum is normal in appearance without evidence for stricture, ulceration, mass or diverticulum. There is no evidence for hiatal hernia or gastroesophageal reflux. RAD/Upper GI Dual Contrast IMPRESSION: 1. Normal air-contrast upper gastrointestinal study. Electronically Signed: Rex Bach MD at 14:12 EDT ,
== END | disposition home or self-care (01) ==
LOC: RAD 07:24
PROVIDERS: PCP Family Medicine; Referring Provider Family Medicine; Visit Provider Family Medicine
DX: R10.13 Epigastric pain (principal); R10.11 Right upper quadrant pain
CPT/HCPCS: 74246; 76705

== ENCOUNTER → 2022-08-14 | Outpatient (CLI) | payer OTHER, SELFPAY ==
[2022-08-14 18:28] LABS: AST(SGOT) 16 U/L (15-37); Alanine Aminotransfer ALT/SGPT 24 U/L (13-56); Alkaline Phosphatase 55 U/L (45-117); Amylase 73 U/L (25-115); Bilirubin, Direct 0.11 mg/dL (0.00-0.30); Globulin 4.4 g/dL (2.2-4.2); Lipase 136 U/L (73-393); Protein, Total 8.4 g/dL (6.4-8.2); Thyroid Stim Hormone (TSH) 1.06 uIU/mL (0.358-3.74)
== END | disposition home or self-care (01) ==
LOC: LAB 15:16
PROVIDERS: PCP Family Medicine; Visit Provider Family Medicine
DX: R10.13 Epigastric pain (principal); R10.11 Right upper quadrant pain; E89.0 Postprocedural hypothyroidism
CPT/HCPCS: 80076; 82150; 83690; 84443

== ENCOUNTER 2022-09-21 19:17 | Emergency (ER) | payer OTHER, SELFPAY ==
[2022-09-21 19:18] VITALS: BP 154/107; PULSE 97; RESP 18; TEMP 36.6; O2SAT 98; BMI 38.9
--- NOTE | 2022-09-21 19:22 | EKG12_ITS ---
Test Reason : CP Blood Pressure : / mmHG Vent. Rate : 084 BPM Atrial Rate : 084 BPM P-R Int : 174 ms QRS Dur : 150 ms QT Int : 410 ms P-R-T Axes : 060 -35 089 degrees QTc Int : 484 ms Normal sinus rhythm Left axis deviation Left bundle branch block Abnormal ECG Confirmed by KOSTA CARLTON, TSAS ([id number]), videotape editor ONI BECK ([id number]) on 09/24/2022 1:04:52 PM Referred By: BRENNAN Confirmed By:STAS BRAMBILA MD
--- NOTE | 2022-09-21 19:40 | RAD_ITS ---
INDICATION: chest pain EXAMINATION/TECHNIQUE: X-RAY - XR Chest 1 View COMPARISON: 03/03/2020. FINDINGS: LINES/DEVICES: None. LUNGS: No consolidation, edema or effusion. No pneumothorax. MEDIASTINUM AND CARDIOVASCULAR STRUCTURES: Cardiac silhouette not enlarged. Central airways and mediastinal contour are unremarkable. BONES AND SOFT TISSUES: Unremarkable. RAD/Chest 1 View (Portable) IMPRESSION: No radiographic evidence of acute cardiopulmonary disease. Electronically Signed: Kayli Burch MD at 20:39 EST Reading Location ID and State: [id number] / Tel , Service support ,
[2022-09-21 19:46] LABS: Absolute Lymphocyte Count 1.52 X10^3/uL (0.83-4.51); Absolute Neutrophil Count 2.7 X10^3/uL (2.0-7.7); Basophil# 0.01 X10^3/uL; Basophil% 0.2 % (0-1); Eosinophil# 0.12 X10^3/uL; Eosinophils% 2.5 % (0-5); Hematocrit 40.6 % (37-47); Hemoglobin 13.6 g/dL (12.0-15.0); Lymphocyte # 1.52 X10^3/ul (0.83-4.51); Lymphocyte % 31.3 % (19-41); Mean Corp Hgb Conc 33.5 g/dL (32-36); Mean Corpuscular Hgb 28.7 pg (27.0-32.0); Mean Corpuscular Volume 85.7 fL (81-99); Mean Platelet Vol. 9.6 fl (6.2-12.0); Monocyte# 0.49 X10^3/uL; Monocyte% 10.1 % (0-10); NRBC Flagged by Analyzer 0 % (0-5); Neutrophil % 55.7 % (47-70); Platelet Count 287 K/mm3 (150-450); RBC Distribution Width CV 12.9 % (11.6-14.6); RBC Distribution Width SD 40.1 fl (35.1-43.9); Red Blood Count 4.74 M/mm3 (4.2-5.4); White Blood Count 4.9 K/mm3 (4.4-11.0)
[2022-09-21 20:05] LABS: Anion Gap 6 (5-15); BUN 15 mg/dL (7-18); BUN/Creat Ratio 23.3 RATIO (10-20); Calcium,Total 9.3 mg/dL (8.5-10.1); Chloride 103 mmol/L (98-107); Creatinine, Serum 0.64 mg/dL (0.55-1.02); EST Glomerular Filtration Rate 109 mL/min (>60); Est Glom Filt Rate - Afr Amer 132 mL/min (>60); Estimated Creatinine Clearance 123.33 ml/min; Glucose 92 mg/dL (74-106); Potassium 3.8 mmol/L (3.5-5.1); Sodium Level 136 mmol/L (136-145); Troponin-I HS 4 pg/mL (3.0-54.0)
--- NOTE | 2022-09-21 21:55 | ED.VIS.CHEST ---
HPI History of Present Illness Chief Complaint: Chest Pain Narrative Narrative: 37-year-old female presenting with chest pain. She states she has a long history of costochondritis and she had breast reduction surgery. She also states that she has chronic chest wall pain secondary to MS and gets flareups of this. Patient states he is currently had chest pain for a month constantly. Its in the sternal region and she states it hurts to touch. She is not short of breath. She denies fever, chills, cough. She states she called her primary care physician who initially was going to see her in follow-up but then after recalling her she was sent to the ER. Patient does report that she is on oral control. She has no history of DVT/PE. CVD Risk Factors: Positive for Hypertension, Diabetes and Hypercholesterolemia PE Risk Factors: Negative for Recent Travel/Surgery, Recent Immobilization, Prior DVT or PE or Cancer [facility] Medical History Acute maxillary sinusitis, unspecified Chronic systolic (congestive) heart failure Costochondritis COVID-19 Dysmetabolic syndrome Essential hypertension LBBB (left bundle branch block) Mixed hyperlipidemia Multiple sclerosis Polycystic ovarian syndrome Postablative hypothyroidism Takotsubo cardiomyopathy Home Medications cholecalciferol (vitamin D3) 25 mcg (1,000 unit) tablet 1,000 unit PO DAILY 03/03/20 [History Last Taken 10/13/20] gemfibrozil 600 mg tablet 600 mg PO BID 03/03/20 [History Last Taken Unknown] metformin 500 mg tablet 500 mg PO BID 03/03/20 [History Last Taken 10/13/20] multivitamin with iron 1 ea PO DAILY 03/03/20 [History Last Taken 10/13/20] pyridoxine (vitamin B6) 25 mg tablet 25 mg PO DAILY 03/03/20 [History Last Taken 10/13/20] spironolactone 100 mg tablet 100 mg PO DAILY 03/03/20 [History Last Taken 10/13/20] biotin 5,000 mcg disintegrating tablet 5,000 mcg PO DAILY 06/02/20 [History Last Taken 10/13/20] clonazepam 0.5 mg tablet 0.5 mg PO BID PRN Anxiety 06/02/20 [History Last Taken Unknown] fluticasone propionate 50 mcg/actuation nasal spray,suspension (Allergy Relief (fluticasone)) 2 spray intranasal DAILY PRN Allergies 06/02/20 [History Last Taken 10/13/20] quetiapine 100 mg tablet 200 mg PO QHS 06/02/20 [History Last Taken 10/13/20] omega 3-dha 60 mg-epa 90 mg-fish oil 500 mg capsule, delayed release 500 mg PO DAILY 10/13/20 [History Last Taken 10/13/20] buspirone 15 mg tablet 15 mg PO BID 12/01/20 [History Last Taken Unknown] dimethyl fumarate 240 mg capsule,delayed release 240 mg PO BID 03/30/21 [History Last Taken Unknown] drospirenone 3 mg-ethinyl estradiol 0.03 mg tablet 1 tab PO DAILY 03/30/21 [History Last Taken Unknown] levothyroxine 200 mcg tablet 200 mcg PO .COMPLEX 03/30/21 [History Last Taken Unknown] levothyroxine 50 mcg tablet 50 mcg PO .Saturday03/30/21 [History Last Taken Unknown] losartan 25 mg tablet 25 mg PO DAILY #90 tabs 08/30/21 [Rx Last Taken Unknown] carvedilol 25 mg tablet 25 mg PO BID Pt is out of pills, dose was increased. #180 tabs 04/16/22 [Rx Last Taken Unknown] Allergy/AdvReac Type Severity Reaction Status Date / Time lisinopril Allergy Angioedema Verified 09/21/22 19:21 adhesive tape AdvReac Unknown Unknown Verified 09/21/22 19:21 bupropion [From Wellbutrin] AdvReac Unknown made Verified 09/21/22 19:21 depression worse fluoxetine [From Prozac] AdvReac Unknown made Verified 09/21/22 19:21 depression worse paroxetine [From Paxil] AdvReac Unknown made Verified 09/21/22 19:21 depression worse sertraline [From Zoloft] AdvReac Unknown made Verified 09/21/22 19:21 depression worse codeine AdvReac Nausea Verified 09/21/22 19:21 morphine AdvReac Nausea Verified 09/21/22 19:21 prednisone AdvReac heart Verified 09/21/22 19:21 racing, face redness Family History Father Sudden cardiac , Onset Age: 60 Myocardial infarction, Onset Age: 60 Mother Diabetes History of aortic valve replacement with bioprosthetic valve Grandmother CVA (cerebral vascular accident) Atrial fibrillation Surgical History History of ankle surgery History of arthroscopy of knee History of discectomy History of mandibular surgery Hx of breast reduction, elective Social History Smoking Status: Never smoker alcohol intake: current details: occasional substance use type: does not use caffeine: Yes Type: coffee Number of servings: 1 ROS ROS ED Constitutional Constitutional ED: Denies chills, fever(s) or sweats Eyes Eyes: Denies blurry vision or change in vision ENT ENT ED: Denies ear pain or sore throat Cardiovascular Cardiovascular: Reports chest pain; Denies palpitations or racing heartbeat Respiratory/Chest Respiratory/Chest: Denies cough, dyspnea or sputum Gastrointestinal Gastrointestinal: Denies abdominal pain, constipation, diarrhea, nausea or vomiting Genitourinary Genitourinary ED: Denies dysuria, hematuria or urinary frequency Musculoskeletal Musculoskeletal: Denies arthralgias, myalgias or neck pain Integumentary Denies abscess, Abrasions or rash Neurologic Neurologic: Denies headache(s), paresthesias or weakness Psychiatric Psychiatric: Denies anxiety, depression, suicidal ideation or suicidal thoughts Endocrine Endocrinology: Denies polydipsia or polyuria EXAM Physical Exam Const Vital Signs: 09/21/22 19:18 09/21/22 20:45 Temperature 97.9 F Temperature Source Temporal Pulse Rate 97 Respiratory Rate 18 Blood Pressure 154/107 H Blood Pressure Mean 122 Pulse Ox 98 Oxygen Delivery Method Room Air Room Air Positive well nourished General Appearance ED: Negative for pallor HEENT Reports moist mucous membranes normocephalic and atraumatic Eyes PERRL and EOMs intact bilaterally Chest Wall Chest Narrative: Tenderness to palpation of the sternum. No crepitance. Equal symmetric breath sounds and chest wall rise. Resp normal respiratory effort and clear to auscultation bilaterally Auscultation: Negative for rales, rhonchi or wheezes Cardio regular rate and regular rhythm GI normal to inspection, nondistended, normoactive bowel sounds Neuro oriented x3 and CN's II-XII intact bilaterally Sensorium / Orientation: awake and alert Psych mental status grossly normal Skin no rashes or lesions noted General Skin Exam: Negative for jaundice or pallor Heart Score History: Slightly/Non-Suspicious ECG: Normal Age: </= 45 years Risk Factors: >/= 3 Risk Factors or History of CAD Troponin: </= Normal Limit Score: 2 MDM MDM MDM Narrative Medical decision making narrative: Patient presenting with a month of chest pain. She describes it in the chest wall. Its in the sternal region. She has tenderness to palpation of the sternal region. Even auscultating her left upper chest causes the pain. Lungs are clear to auscultation. Heart regular rate and rhythm. Respiratory rate 18, pulse ox 98 200% on room air. She is afebrile. EKG on my interpretation shows a sinus rhythm with PACs at 101 bpm without significant interval change from previous EKG performed 06/02/2020. HEART score 2. CBC shows no leukocytosis. Hemoglobin hematocrit are stable. Platelets are normal. Renal function electrolytes within normal limits. High-sensitivity troponin is 4 with pain for a month and history of chronic costochondritis and I do not believe she is a delta troponin. Chest x-ray on my interpretation shows no acute cardiopulmonary process and radiologist interpreted this and agrees. Clinically I believe she has costochondritis. I have low suspicion for PE as her vital signs are normal. This was discussed with her at length. I did offer to do a D-dimer and she states that she does not want this. She states that this is a chronic issue for her and she only came to the ER because of her primary care physician. Patient states she takes muscle relaxers for this and did do so last night and it helped her pain. I believe the patient can safely discharge home. Impression: 1. costochondritis 2. Chest pain Lab Data Attestation: I reviewed the patient's lab results. Labs: Laboratory Results - last 24 hr 09/21/22 09/21/22 19:35 19:35 WBC 4.9 RBC 4.74 Hgb 13.6 Hct 40.6 MCV 85.7 MCH 28.7 MCHC 33.5 RDW Std Deviation 40.1 RDW Coeff of Otto 12.9 Plt Count 287 MPV 9.6 Immature Gran % (Auto) 0.200 Neut % (Auto) 55.7 Lymph % (Auto) 31.3 Gaines % (Auto) 10.1 H Eos % (Auto) 2.5 Baso % (Auto) 0.2 Absolute Neuts (auto) 2.7 Absolute Lymphs (auto) 1.52 Nucleated RBC % 0 Sodium 136 Potassium 3.8 Chloride 103 Carbon Dioxide 27.0 Anion Gap 6 BUN 15 Creatinine 0.64 Estim Creat Clear Calc 123.33 Est GFR (MDRD) Af Amer 132 Est GFR (MDRD) Non-Af 109 BUN/Creatinine Ratio 23.3 H Glucose 92 Calcium 9.3 Troponin I High Sens 4 Radiography Diagnostic Testing: Clinical Impression(s) from Imaging Studies Chest X-Ray 09/21/22 19:40 IMPRESSION: No radiographic evidence of acute cardiopulmonary disease. Electronically Signed: Kayli Burch MD at 20:39 EST Reading Location ID and State: [id number] / Tel , Service support , Discharge Plan Triage Chief Complaint: Chest Pain ED Provider: Baron Rodriguez Dx/Rx/DC Orders Instructions: ED Chest Wall Pain, Costochondritis Prescriptions: No Action biotin 5,000 mcg tablet,disintegrating 5,000 mcg PO DAILY clonazepam 0.5 mg tablet 0.5 mg PO BID PRN (Reason: Anxiety) fluticasone propionate [Allergy Relief (fluticasone)] 50 mcg/actuation spray,suspension 2 spray INTRANASAL DAILY PRN (Reason: Allergies) Rx Instructions: administer into each nostril levothyroxine 50 mcg tablet 50 mcg PO .SATURDAY metformin 500 MG tablet 500 mg PO BID pyridoxine (vitamin B6) 25 MG tablet 25 mg PO DAILY spironolactone 100 MG tablet 100 mg PO DAILY gemfibrozil 600 MG tablet 600 mg PO BID multivitamin with iron 1 EACH tablet 1 ea PO DAILY cholecalciferol (vitamin D3) 1,000 UNIT tablet 1,000 unit PO DAILY quetiapine 100 mg tablet 200 mg PO QHS Rx Instructions: take with 50mg tab levothyroxine 200 mcg tablet 200 mcg PO .COMPLEX Rx Instructions: 200 mcg PO MOTUWETHFRSA omega 3-hvl-tdg-fish oil 500 MG capsule,delayed release(DR/EC) 500 mg PO DAILY buspirone 15 mg tablet 15 mg PO BID drospirenone-ethinyl estradiol 3-0.03 mg tablet 1 tab PO DAILY dimethyl fumarate 240 mg capsule,delayed release(DR/EC) 240 mg PO BID losartan 25 mg tablet 25 mg PO DAILY Qty: 90 3RF carvedilol 25 mg tablet 25 mg PO BID Qty: 180 3RF Rx Instructions: must administer with a meal/food Primary Care Provider: Isael Morrissey Referrals: Isael Morrissey MD [Primary Care Provider] - Disposition Disposition: Home, Self Care
== END 2022-09-21 22:12 | disposition home or self-care (01) ==
PROVIDERS: Emergency Provider Student in an Organized Health Care Education/Training Program; PCP Family Medicine; Visit Provider Student in an Organized Health Care Education/Training Program
DX: M94.0 Chondrocostal junction syndrome [Tietze] (principal); G35 Multiple sclerosis; I11.0 Hypertensive heart disease with heart failure; I50.22 Chronic systolic (congestive) heart failure; E11.9 Type 2 diabetes mellitus without complications; R07.9 Chest pain, unspecified; E78.00 Pure hypercholesterolemia, unspecified; Z79.84 Long term (current) use of oral hypoglycemic drugs; Z79.890 Hormone replacement therapy; Z79.899 Other long term (current) drug therapy
CPT/HCPCS: 71045; 80048; 84484; 85025; 93005; 99283; A4216

== ENCOUNTER → 2022-11-16 | Outpatient (CLI) | payer OTHER, SELFPAY ==
[2022-11-16 08:24] LABS: Uric Acid 4.3 mg/dL (2.6-6.0)
== END | disposition home or self-care (01) ==
LOC: LAB 07:11
PROVIDERS: PCP Family Medicine; Visit Provider Family Medicine
DX: M79.676 Pain in unspecified toe(s) (principal)
CPT/HCPCS: 36415; 84550

== ENCOUNTER → 2023-01-09 | Outpatient (CLI) | payer OTHER, SELFPAY ==
[2023-01-09 12:58] LABS: Absolute Lymphocyte Count 1.43 X10^3/uL (0.83-4.51); Basophil# 0.02 X10^3/uL; Basophil% 0.3 % (0-1); Eosinophils% 1.6 % (0-5); Hematocrit 40.6 % (37-47); Hemoglobin 13.3 g/dL (12.0-15.0); Lymphocyte # 1.43 X10^3/ul (0.83-4.51); Lymphocyte % 23.2 % (19-41); Mean Corp Hgb Conc 32.8 g/dL (32-36); Mean Corpuscular Volume 88.6 fL (81-99); Mean Platelet Vol. 10.1 fl (6.2-12.0); Monocyte# 0.59 X10^3/uL; Monocyte% 9.6 % (0-10); NRBC Flagged by Analyzer 0 % (0-5); Platelet Count 296 K/mm3 (150-450); RBC Distribution Width CV 12.7 % (11.6-14.6); RBC Distribution Width SD 41.5 fl (35.1-43.9); Red Blood Count 4.58 M/mm3 (4.2-5.4); White Blood Count 6.2 K/mm3 (4.4-11.0)
[2023-01-09 13:25] LABS: AST(SGOT) 22 U/L (15-37); Alanine Aminotransfer ALT/SGPT 36 U/L (13-56); Albumin, Serum 3.8 g/dL (3.2-5.0); Alkaline Phosphatase 59 U/L (45-117); Bilirubin, Direct 0.13 mg/dL (0.00-0.30); Globulin 4.1 g/dL (2.2-4.2); Protein, Total 7.9 g/dL (6.4-8.2)
== END | disposition home or self-care (01) ==
LOC: LAB 11:25
PROVIDERS: PCP Family Medicine
DX: G35 Multiple sclerosis (principal)
CPT/HCPCS: 36415; 80076; 85025

== ENCOUNTER → 2023-01-18 | Outpatient (CLI) | payer OTHER, SELFPAY ==
--- NOTE | 2023-01-18 07:00 | MRI_ITS ---
STUDY: MRI BRAIN WITH AND WITHOUT CONTRAST REASON FOR EXAM: Female, 37 years old. MS-f/u compare to previous TECHNIQUE: Standardized multiplanar fat and water weighted pulse sequences were obtained. IV 25ml Clariscan was administered for the contrast portion of the examination. COMPARISON: January 23, 2022 FINDINGS: Normal size of the ventricles and extra-axial spaces for the patient''s age. There are a few bilateral white matter lesions several of which involve the callosal septal interface which may be consistent with clinical history of multiple sclerosis. There are no enhancing plaques following contrast demonstration.. Normal bilateral basal ganglia. Normal thalami. There is no extra-axial fluid accumulation. Normal flow voids within the major intracranial circulation suggesting patency by spin echo criteria. Normal venous enhancement. There is no enhancing intra-axial or extra-axial abnormality. Normal sella turcica, pituitary gland, infundibular stalk, optic chiasm and hypothalamus. Normal tectal plate and pineal gland. Normal midbrain, shazia and medulla. Normal cerebellum. Normal basal cisterns. Normal bilateral temporal bones. Normal bilateral internal auditory canals. No demonstrated orbital abnormality, within the constraints of a routine brain study. Normal visualized paranasal sinuses. Normal calvarium and skull base. Normal visualized soft tissue structures. Normal visualized upper cervical spine. The white matter plaques are stable in appearance since previous exam with perhaps slight increase in size of one of the plaques in the right frontal lobe but reduction in size of one of the left frontal lobe plaques. MRI/Brain W/WO Contrast IMPRESSION: Findings consistent with clinical history of multiple sclerosis without significant change since prior exam.. No evidence for acute demyelination Electronically Signed: Isael Pelayo MD at 16:44 EDT ,
[2023-01-18 16:25] LABS: CREATININE FINGERSTICK 0.57 mg/dL (0.55-1.02); EGFR FINGERSTICK > 60 mL/min (>60)
== END | disposition home or self-care (01) ==
LOC: MRI 07:05
PROVIDERS: PCP Family Medicine
DX: G35 Multiple sclerosis (principal)
CPT/HCPCS: 70553; A9575

== ENCOUNTER → 2023-02-22 | Outpatient (CLI) | payer OTHER, SELFPAY ==
[2023-02-22 07:45] LABS: Mucous, Urine 0 SEEN /hpf (<or=2+); Red Blood Cells-Urine 0 SEEN /hpf (0-5); White Blood Cells 0 SEEN /hpf (0-5)
[2023-02-22 08:44] LABS: Color, Urine Yellow (Yellow); Glucose, Dipstick Normal (Normal); Ketone-Dipstick Negative (Negative); Leukocyte Esterase-Dipstick Negative /ul (Negative); Nitrite-Dipstick Negative (Negative); Occult Blood-Urine Negative /ul (Negative); Protein-Dipstick 15 mg/dl (Negative); Specific Gravity, Urine 1.015 (1.002-1.030); Urine Bilirubin Dipstick Negative (Negative); Urine Clarity Sl. Cloudy (Clear); Urine Urobilinogen Normal (Normal); Urine pH 6.5 (5.0 - 8.0)
[2023-02-22 08:56] LABS: Squamous Epithelial Cells - UA 0-5 SEEN /hpf (5-10)
[2023-02-22 08:57] LABS: Bacteria 1+ /hpf (None Seen); Vitamin B12 518 pg/mL (211-911)
[2023-02-22 09:12] LABS: Hemoglobin A1c 4.8 % (3.8-5.6)
[2023-02-22 09:13] LABS: Magnesium 2.1 mg/dL (1.6-2.6); Thyroid Stim Hormone (TSH) 0.69 uIU/mL (0.358-3.74)
== END | disposition home or self-care (01) ==
LOC: LAB 07:38
PROVIDERS: PCP Family Medicine; Visit Provider Family Medicine
DX: K21.9 Gastro-esophageal reflux disease without esophagitis (principal); Z79.899 Other long term (current) drug therapy; I10 Essential (primary) hypertension; Z13.1 Encounter for screening for diabetes mellitus; E89.0 Postprocedural hypothyroidism
CPT/HCPCS: 36415; 81001; 82607; 83036; 83735; 84443

== ENCOUNTER → 2023-03-20 | Outpatient (CLI) | payer OTHER, SELFPAY ==
--- NOTE | 2023-03-20 07:55 | ECHOCS_ITS ---
Reason For Study: FOLLOW UP Procedure This was a 2D Doppler, Color Flow transthoracic echocardiogram. Exam performed in department. Left Ventricle Normal LV size. The left ventricular ejection fraction is 45 %. Septal motion consistent with bundle branch block. Normal diastology for age. Right Ventricle Normal RV size. Normal systolic function. Atria Normal left atrium. Normal right atrium. Mitral Valve Normal mitral valve. Tricuspid Valve Normal tricuspid valve. Aortic Valve The aortic valve is not well visualized. Pulmonic Valve The pulmonic valve is not well visualized. Great Vessels Normal aortic root. The pulmonary artery is normal size. Normal inferior vena cava. Pericardium/Pleural No pericardial effusion. MMode/2D Measurements & Calculations LVIDd: 6.1 cm IVSd: 0.84 cm Ao root diam: 2.8 cm LVIDs: 4.8 cm LVPWd: 0.79 cm FS: 20.3 % LAV(MOD-bp): 65.6 ml LVAd ap4: 43.4 cm2 LVAd ap2: 40.3 cm2 LAV(MOD-bp) Indexed: 27.3 ml/m2 LVLd ap4: 9.6 cm LVLd ap2: 9.3 cm LAV(MOD-sp2): 72.3 ml EDV(MOD-sp4): 162.4 ml EDV(MOD-sp2): 141.6 ml LAV(MOD-sp4): 50.1 ml EDV(sp4-el): 166.5 ml EDV(sp2-el): 147.8 ml LVAs ap4: 29.7 cm2 LVAs ap2: 25.7 cm2 LVLs ap4: 8.8 cm LVLs ap2: 7.9 cm ESV(MOD-sp4): 84.1 ml ESV(MOD-sp2): 68.1 ml ESV(sp4-el): 85.7 ml ESV(sp2-el): 71.0 ml EF(MOD-sp4): 48.2 % EF(MOD-sp2): 51.9 % EF(sp4-el): 48.5 % SV(MOD-sp4): 78.4 ml SV(MOD-sp2): 73.5 ml SV(sp4-el): 80.8 ml LA dimension(2D): 3.9 cm LA A4 area: 16.8 cm2 RA A4 area: 10.3 cm2 Time Measurements MV dec time: 0.24 sec Doppler Measurements & Calculations MV E max galen: 94.5 cm/sec Lat Peak E' Galen: 11.1 cm/sec Med Peak E' Galen: 9.9 cm/sec MV A max galen: 64.7 cm/sec E/E' lat: 8.5 E/E' med: 9.5 MV E/A: 1.5 MV V2 max: 93.4 cm/sec MV dec slope: 400.8 cm/sec2 Ao V2 max: 162.1 cm/sec MV max P.5 mmHg Ao max P.5 mmHg MV V2 mean: 57.0 cm/sec Ao V2 mean: 117.7 cm/sec MV mean P.5 mmHg Ao mean P.3 mmHg MV V2 VTI: 26.3 cm Ao V2 VTI: 31.4 cm AV (velocity ratio): 0.71 LV V1 max: 115.0 cm/sec PA V2 max: 119.9 cm/sec LV V1 max P.3 mmHg PA V2 mean: 73.6 cm/sec LV V1 mean P.3 mmHg LV V1 mean: 85.9 cm/sec LV V1 VTI: 22.2 cm ECHO/Echo Complete W/ Contrast Interpretation Summary Normal LV size. The left ventricular ejection fraction is 45 %. Septal motion consistent with bundle branch block. Compared to previous study, the left ventricular systolic function is the same. . Contrast injection was performed. Ordering Physician: Kaushal Butt Referring Physician: Kaushal Butt Performed By: Jenni Lemus RCS
== END | disposition home or self-care (01) ==
LOC: CVS 07:54
PROVIDERS: PCP Family Medicine; Referring Provider Internal Medicine Cardiovascular Disease; Visit Provider Internal Medicine Cardiovascular Disease
DX: I42.9 Cardiomyopathy, unspecified (principal); I50.22 Chronic systolic (congestive) heart failure; I11.0 Hypertensive heart disease with heart failure; I44.7 Left bundle-branch block, unspecified
CPT/HCPCS: 93306; Q9957; A4216; C8929

== ENCOUNTER → 2023-06-13 | Outpatient (CLI) | payer OTHER, SELFPAY ==
--- NOTE | 2023-06-13 06:34 | MRI_ITS ---
STUDY: MRI LUMBAR SPINE WITH AND WITHOUT CONTRAST REASON FOR EXAM: Female, 37 years old. RADICULOPATHY, BILAT LEG N/T; HX MS, PREV DISCECTOMY L4/5 TECHNIQUE: Standardized fat and water weighted pulse sequences were obtained in the sagittal and axial planes. IV 27ml Clariscan was administered for the contrast portion of the examination. COMPARISON: None FINDINGS: T11-T12 and T12-L1: (Sagittal only). Normal endplates. Normal disc height, hydration and morphology. Normal central canal and bilateral intervertebral neural foramina. Normal lumbar lordosis. There is no substantial scoliosis. Normal conus medullaris that terminates at the T12-L1 disc space level. L1-2: Normal endplates. Normal disc height, hydration and morphology. Normal bilateral facet joints. Normal central canal and bilateral lateral recesses. Normal bilateral intervertebral neural foramina. Small left anterior renal parenchymal cyst is visible at this level. L2-3: Normal endplates. Normal disc height, hydration and morphology. Normal bilateral facet joints. Normal central canal and bilateral lateral recesses. Normal bilateral intervertebral neural foramina. Small right medial renal parenchymal cyst is visible at this level. L3-4: Normal endplates. Normal disc height, hydration and morphology. Normal bilateral facet joints. Normal central canal and bilateral lateral recesses. Normal bilateral intervertebral neural foramina. L4-5: Normal endplates. Minimal disc space height narrowing. Left L4 hemilaminotomy defect. Left ventral extradural defect causing posterior displacement of the left L5 nerve root sleeve. Normal central canal and right lateral recess. Mild deformity of the left lateral recess. Normal facet joints. Normal bilateral intervertebral neural foramina. L5-S1: Normal endplates. Normal disc height, hydration and morphology. Normal bilateral facet joints. Normal tapered narrowing and termination of the thecal sac at the lower S1 vertebral body level surrounded by epidural lipomatosis. Normal bilateral lateral recesses. Normal bilateral intervertebral neural foramina. Normal visualized sacral ala. Normal visualized paraspinous soft tissue structures. There is minimal contrast enhancement of postoperative fibrosis behind the nonenhancing left ventral extradural defect at the L4-L5 disc space levels suggestive of small recurrent disc protrusion. MRI/Spine Lumbar W/WO Contrast IMPRESSION: 1. Prominent left L4-L5 ventral extradural defect has a small nonenhancing component surrounded by contrast enhancing postoperative fibrosis. This is suspicious for a small recurrent disc protrusion. Advise clinical correlation if there are symptoms of left L5 nerve root sleeve radiculopathy. 2. No MRI evidence of lumbar extruded disc fragment or spinal stenosis. 3. Normal remainder of the lumbar spine. Electronically Signed: Jono Bynum MD at 8:29 EDT ,
[2023-06-13 07:11] LABS: CREATININE FINGERSTICK < 0.9 mg/dL (0.55-1.02); EGFR FINGERSTICK > 60.0000 mL/min (>60)
== END | disposition home or self-care (01) ==
PROVIDERS: PCP Family Medicine
DX: M54.16 Radiculopathy, lumbar region (principal)
CPT/HCPCS: 72158; A9575

== ENCOUNTER → 2023-08-30 | Outpatient (CLI) | payer OTHER, SELFPAY ==
[2023-08-30 08:48] LABS: Cholesterol 214 mg/dL (200); Ferritin 42 ng/mL (8-252); High Density Lipoprotein 70 mg/dL; Iron 119 ug/dL (50-170); Iron Binding Capacity,Total 408 ug/dL (250-450); PERCENT IRON SATURATION 29.2 % (15.0-55.0); Triglycerides 236 mg/dL; Very Low Density Lipoprotein 47 mg/dL (5-40)
[2023-08-30 10:29] LABS: Hemoglobin A1c 5.1 % (3.8-5.6)
== END | disposition home or self-care (01) ==
PROVIDERS: PCP Family Medicine; Referring Provider Family Medicine; Visit Provider Family Medicine
DX: E89.0 Postprocedural hypothyroidism (principal); I10 Essential (primary) hypertension; E78.2 Mixed hyperlipidemia; E28.2 Polycystic ovarian syndrome; Z13.0 Encounter for screening for diseases of the blood and blood-forming organs and certain disorders involving the immune mechanism
CPT/HCPCS: 36415; 80061; 82728; 83036; 83525; 83540; 83550; 84443

== ENCOUNTER → 2023-09-13 | Outpatient (CLI) | payer OTHER, SELFPAY ==
--- NOTE | 2023-09-13 09:30 | RAD_ITS ---
STUDY: X-RAY - BILATERAL RIBS WITH CHEST REASON FOR EXAM: Female, 38 years old. Rib pain. TECHNIQUE - RIBS: 8 view(s) of the ribs. TECHNIQUE - CHEST: Single frontal view of the chest. COMPARISON: Chest dated September 21, 2022 FINDINGS - RIBS : Normal visualized ribs without a demonstrated fracture. FINDINGS - CHEST: The lungs are clear and expanded. There is no demonstrated pleural abnormality. Normal size heart. Normal mediastinum and mateo. Normal visualized pulmonary arteries. Normal visualized aortic arch and descending thoracic aorta. Normal visualized thoracic spine. Normal visualized ribs, clavicles, and shoulders. There is no demonstrated abnormality of the visualized soft tissue structures of the upper abdomen. RAD/Ribs Dung Min 4V w/PA Chest IMPRESSION: RIBS: No abnormality of the ribs. CHEST: No interval change. Normal chest. Electronically Signed: Damir Simons MD at 11:02 EST ,
== END | disposition home or self-care (01) ==
LOC: RAD 09:25
PROVIDERS: PCP Family Medicine; Referring Provider Family Medicine; Visit Provider Family Medicine
DX: R07.81 Pleurodynia (principal)
CPT/HCPCS: 71111

== ENCOUNTER → 2023-10-31 | Outpatient (CLI) | payer OTHER, SELFPAY ==
[2023-10-31 14:13] LABS: Thyroid Stim Hormone (TSH) 0.94 uIU/mL (0.358-3.74)
== END | disposition home or self-care (01) ==
LOC: LAB 13:21
PROVIDERS: PCP Family Medicine; Referring Provider Family Medicine; Visit Provider Family Medicine
DX: E89.0 Postprocedural hypothyroidism (principal)
CPT/HCPCS: 36415; 84443

== ENCOUNTER → 2024-01-24 | Outpatient (CLI) | payer OTHER, SELFPAY ==
--- NOTE | 2024-01-24 09:34 | MRI_ITS ---
INDICATION: MS f/u, no new complaints EXAMINATION: MRI - MR Brain WO/W Contrast TECHNIQUE: Multiplanar and multisequence MR images of the brain were obtained without and with gadolinium. IV Contrast Dosage and Agent: 25 mL Clariscan. COMPARISON: 01/18/2023 FINDINGS: BRAIN PARENCHYMA: * No MRI evidence of hemorrhage. * No evidence of acute or subacute infarct. * Scattered subcortical and periventricular foci of T2 prolongation, which include the juxtacortical white matter and callosal septal interface, a pattern that is classic for multiple sclerosis. No associated restricted diffusion or enhancement within either these white matter signal abnormalities. The extent, pattern and distribution is identical to the previous exam. * No intracranial mass or mass effect. * There is preservation of the loomis/white matter interface. * Normal sella turcica, pituitary gland, infundibular stalk, optic chiasm and hypothalamus. * Posterior fossa structures are unremarkable. CSF SPACES: Appropriate for age. No hydrocephalus. Basal cisterns are patent. VASCULAR SYSTEM: Normal flow voids in the major intracranial circulation. CALVARIUM, SKULL BASE, PARANASAL SINUSES AND MASTOID AIR CELLS: Clear. No expansile changes. ORBITS: Optic nerves unremarkable. Both globes, extraocular muscles, optic nerves and retrobulbar fat appear unremarkable. MRI/Brain W/WO Contrast IMPRESSION: * No acute or subacute intracranial pathology. * Scattered white matter signal abnormalities, pattern and distribution of which are consistent with multiple sclerosis. No change from the prior examination. Electronically Signed: Gino Veras MD at 0:00 EDT ,
[2024-01-24 16:20] LABS: CREATININE FINGERSTICK < 1.0 mg/dL (0.55-1.02); EGFR FINGERSTICK > 60.0000 mL/min (>60)
== END | disposition home or self-care (01) ==
LOC: MRI 09:22
PROVIDERS: PCP Family Medicine
DX: G35 Multiple sclerosis (principal)
CPT/HCPCS: 70553; A9575

== ENCOUNTER → 2024-03-10 | Outpatient (CLI) | payer OTHER, SELFPAY ==
[2024-03-10 08:41] LABS: Absolute Lymphocyte Count 1.35 X10^3/uL (0.83-4.51); Absolute Neutrophil Count 3.4 X10^3/uL (2.0-7.7); Basophil# 0.02 X10^3/uL; Basophil% 0.4 % (0-1); Eosinophil# 0.07 X10^3/uL; Eosinophils% 1.3 % (0-5); Hematocrit 42.9 % (37-47); Hemoglobin 13.7 g/dL (12.0-15.0); Lymphocyte # 1.35 X10^3/ul (0.83-4.51); Lymphocyte % 25.1 % (19-41); Mean Corp Hgb Conc 31.9 g/dL (32-36); Mean Corpuscular Hgb 28.4 pg (27.0-32.0); Mean Corpuscular Volume 88.8 fL (81-99); Mean Platelet Vol. 10.2 fl (6.2-12.0); Monocyte% 9.3 % (0-10); NRBC Flagged by Analyzer 0 % (0-5); Neutrophil # 3.41 X10^3/uL (2.7-7.7); Neutrophil % 63.5 % (47-70); Platelet Count 267 K/mm3 (150-450); RBC Distribution Width CV 12.9 % (11.6-14.6); RBC Distribution Width SD 42.4 fl (35.1-43.9); Red Blood Count 4.83 M/mm3 (4.2-5.4); White Blood Count 5.4 K/mm3 (4.4-11.0)
[2024-03-10 09:17] LABS: Vitamin B12 400 pg/mL (211-911)
[2024-03-10 09:26] LABS: ALB/GLOB Ratio 0.9 RATIO (0.9-2.4); AST(SGOT) 19 U/L (15-37); Alanine Aminotransfer ALT/SGPT 31 U/L (13-56); Albumin, Serum 3.6 g/dL (3.2-5.0); Alkaline Phosphatase 69 U/L (45-117); Anion Gap 5 (5-15); BUN 16 mg/dL (7-18); BUN/Creat Ratio 20.8 RATIO (10-20); Calcium,Total 9.3 mg/dL (8.5-10.1); Chloride 103 mmol/L (98-107); Cholesterol 232 mg/dL (200); Creatinine, Serum 0.77 mg/dL (0.55-1.02); EST Glomerular Filtration Rate 88 mL/min (>60); Est Glom Filt Rate - Afr Amer 107 mL/min (>60); Glucose 103 mg/dL (74-106); High Density Lipoprotein 63 mg/dL; Magnesium 2.2 mg/dL (1.6-2.6); Potassium 4.8 mmol/L (3.5-5.1); Protein, Total 7.6 g/dL (6.4-8.2); Sodium Level 136 mmol/L (136-145); Thyroid Stim Hormone (TSH) 1.33 uIU/mL (0.358-3.74); Triglycerides 150 mg/dL; Very Low Density Lipoprotein 30 mg/dL (5-40)
== END | disposition home or self-care (01) ==
LOC: LAB 07:36
PROVIDERS: PCP Family Medicine; Referring Provider Family Medicine; Visit Provider Family Medicine
DX: K21.9 Gastro-esophageal reflux disease without esophagitis (principal); I10 Essential (primary) hypertension; E78.2 Mixed hyperlipidemia; E89.0 Postprocedural hypothyroidism; F41.1 Generalized anxiety disorder; Z79.899 Other long term (current) drug therapy; Z13.1 Encounter for screening for diabetes mellitus
CPT/HCPCS: 36415; 80053; 80061; 82607; 83036; 83735; 84443; 85025

== ENCOUNTER → 2024-03-13 | Outpatient (CLI) | payer OTHER, SELFPAY ==
--- NOTE | 2024-03-13 12:11 | BI_ITS ---
MAMMOGRAPHY - BILATERAL SCREENING REASON FOR EXAM: Female, 38 years old. Routine annual screening examination. PERTINENT HISTORY: Non-contributory. History of prior bilateral breast reduction surgery and left needle breast biopsy. TECHNIQUE: Digital bilateral breast josiane (3D mammographic acquisition) in the CC and MLO projections. 2-D mediolateral oblique (MLO) and craniocaudad (CC) views of both breasts were obtained. CAD: Full Field Digital Mammography with Computer Added Detection was performed. COMPARISON: None. Baseline examination. FINDINGS: Breast Composition: The breasts are heterogeneously dense, which may obscure small masses. There are no dominant masses or suspicious calcifications. Bilateral fat-containing axillary lymph nodes. No other significant abnormalities are identified. BI/SCRN MAMM (CAD)W/JOSIANE BILAT IMPRESSION: Negative screening mammogram. Yearly followup mammogram recommended. (A) ASSESSMENT CATEGORY: BIRADS Category 2: Benign. A letter regarding these results will be sent to the patient by the facility within 30 days. Approximately 10% of breast cancers are not detected by mammography. A normal mammogram should not delay biopsy of a clinically suspicious abnormality. [id number] Electronically Signed: Rex Bach MD at 13:10 EDT ,
== END | disposition home or self-care (01) ==
LOC: OPBI 12:09
PROVIDERS: PCP Family Medicine; Referring Provider Nurse Practitioner Family; Visit Provider Nurse Practitioner Family
DX: Z12.31 Encounter for screening mammogram for malignant neoplasm of breast (principal)
CPT/HCPCS: 77063; 77067

== ENCOUNTER → 2024-03-23 | Outpatient (CLI) | payer OTHER, SELFPAY | END | disposition home or self-care (01) | PROVIDERS: PCP Family Medicine; Referring Provider Family Medicine; Visit Provider Family Medicine | DX: R20.0 Anesthesia of skin (principal); R20.2 Paresthesia of skin; M62.838 Other muscle spasm; Z79.899 Other long term (current) drug therapy | CPT/HCPCS: 36415; 82746 ==

== ENCOUNTER → 2024-04-21 | Outpatient (CLI) | payer OTHER, SELFPAY ==
--- NOTE | 2024-04-21 09:11 | NEURO_ITS ---
NCS and/or EMG Patient Report Ordering Doctor: Isael Morrissey DATE OF SERVICE: 04/21/24 Clinical Summary: 38 year old female with history of lumbar spine surgery and Multiple Sclerosis with symptoms of numbness, tingling, and pain in the lower extremities - in particular, in the lateral thigh of the right lower extremity and diffusely in the left lower extremity.. Nerve Conduction Studies Summary: The right peroneal-EDB CMAP amplitudes are reduced diffusely. The right peroneal motor conduction velocity is reduced at the fibular head. Needle Examination Summary: Needle examination of the bilateral lower extremities demonstrated a higher p roportion of motor unit action potentials with increased amplitude and increased duration in the left vastus lateralis, tibialis anterior, and peroneus longus muscles. Impression: Chronic neurogenic changes were seen in the left vastus lateralis, tibialis anterior, and peroneus longus muscles, which are suggestive of a mild, chronic left L4-L5 polyradiculopathy. Comment: Meralgia Paresthetica should be considered as a possible cause of the patient's symptoms of right/left lateral thigh numbness. Clinical correlation is advised. Multi Select Codes Neurology Neurology Interp Codes: 34182-80 Musc test done w/n test comp (interp) (2) and 05968-70 Nrv cndj test 9-10 studies (interp)
== END | disposition home or self-care (01) ==
LOC: PSN 06:58
PROVIDERS: PCP Family Medicine; Referring Provider Family Medicine; Visit Provider Family Medicine
DX: R20.0 Anesthesia of skin (principal); R20.2 Paresthesia of skin
CPT/HCPCS: 95886; 95910

== ENCOUNTER → 2024-04-30 | Outpatient (CLI) | payer OTHER, SELFPAY ==
--- NOTE | 2024-04-30 14:10 | RAD_ITS ---
STUDY: X-RAY - LUMBAR SPINE REASON FOR EXAM: Female, 38 years old. lbp -- Please do upright AP lateral flexion-extension TECHNIQUE: 4 view(s) of the lumbar spine were obtained. COMPARISON: None FINDINGS: Normal lumbar lordosis. Mild levoscoliosis centered at L3/L4. There is a normal alignment of the vertebrae. No subluxation on the flexion or extension views. Normal vertebral bodies and endplates. There is multi-level degenerative disc disease with multi-level disc space narrowing. There is multilevel facet hypertrophy. The soft tissue structures are unremarkable. RAD/L/S Spine Min 4 Views IMPRESSION: Mild levoscoliosis with degenerative disc disease. No instability. MRI may be useful for Electronically Signed: Surendra Márquez MD at 9:15 EDT ,
== END | disposition home or self-care (01) ==
LOC: RAD 14:08
PROVIDERS: PCP Family Medicine; Referring Provider Orthopaedic Surgery Orthopaedic Surgery of the Spine; Visit Provider Orthopaedic Surgery Orthopaedic Surgery of the Spine
DX: M54.50 Low back pain, unspecified (principal)
CPT/HCPCS: 72110

== ENCOUNTER → 2024-11-04 | Outpatient (CLI) | payer OTHER, SELFPAY ==
[2024-11-04 18:18] LABS: Cholesterol 181 mg/dL (200); High Density Lipoprotein 69 mg/dL; Thyroid Stim Hormone (TSH) 0.952 uIU/mL (0.358-3.740); Triglycerides 152 mg/dL; Very Low Density Lipoprotein 30 mg/dL (5-40)
== END | disposition home or self-care (01) ==
LOC: MTLAB 16:42
PROVIDERS: PCP Family Medicine; Referring Provider Family Medicine; Visit Provider Family Medicine
DX: I10 Essential (primary) hypertension (principal); E78.2 Mixed hyperlipidemia; E89.0 Postprocedural hypothyroidism
CPT/HCPCS: 36415; 80061; 84443

== ENCOUNTER → 2025-03-29 | Outpatient (CLI) | payer OTHER, SELFPAY ==
--- NOTE | 2025-03-29 07:34 | BI_ITS ---
EXAM: SCRN MAMM (CAD)W/JOSIANE BILAT DATE: 03/29/2025 CLINICAL HISTORY: F, Age 39 y/o , SCREENING BREAST CANCER RISK ASSESSMENT: Has not been calculated TECHNIQUE: SCRN MAMM (CAD)W/JOSIANE BILAT COMPARISON: Prior exam(s) dated 03/13/2024. FINDINGS: TISSUE DENSITY: The breast tissue is composed of scattered areas of fibroglandular density. Bilateral Breast Mammographic Findings: Benign round microcalcifications are seen in both breasts. No suspicious masses, suspicious clustered microcalcifications, architectural distortion or secondary sign of malignancy is identified in either breast. BI/SCRN MAMM (CAD)W/JOSIANE BILAT IMPRESSION: Benign screening mammogram OVERALL FINAL ASSESSMENT BI-RADS 2: BENIGN RECOMMEND ANNUAL MAMMOGRAPHIC SCREENING. RECOMMENDATION: The patient should return in 1 year for routine yearly screenin g mammography. A letter with findings and recommendations will be mailed to the patient. Reading Location: [id number]
== END | disposition home or self-care (01) ==
PROVIDERS: PCP Family Medicine; Referring Provider Family Medicine; Visit Provider Family Medicine
DX: Z12.31 Encounter for screening mammogram for malignant neoplasm of breast (principal)
CPT/HCPCS: 77063; 77067

== ENCOUNTER → 2025-04-21 | Outpatient (CLI) | payer OTHER, SELFPAY ==
--- NOTE | 2025-04-21 06:53 | MRI_ITS ---
PROCEDURE: BRAIN W/WO CONTRAST 04/21/2025 REASON FOR EXAM: MS F/U TECHNIQUE: BRAIN W/WO CONTRAST Multiplanar and multisequence images were obtained. CONTRAST: Clariscan VOLUME: 23 mL COMPARISON: MRI brain with and without contrast, 01/24/2020 FINDINGS: There are numerous foci of abnormal periventricular and subcortical white matter signal in both cerebral hemispheres consistent with multiple sclerosis. There are no new plaques when compared with the prior exam. The brainstem, cerebellar hemispheres and proximal cervical spinal cord demonstrate white matter signal abnormalities. There is an area of apparent contrast enhancement in the left superior temporal gyrus. This area is unchanged compared with the prior exam. The areas in the subcortical white matter but does not demonstrate abnormal signal on the FLAIR sequences. There is a normal sulcal pattern and gyral configuration. There is no evidence of acute intracranial hemorrhage or infarction. The loomis-white differentiation is well preserved. There is no evidence of restricted diffusion. The ventricles and basilar cisterns are normal. There are normal flow voids demonstrated in the recognized intracranial vessels. The cerebellum and brainstem are unremarkable. The cerebellar pontine angles are normal. The craniovertebral junction is normal. The sella and suprasellar regions are normal. The orbits and retro-orbital regions are unremarkable. The nasal septum is midline. The paranasal sinuses are clear. The mastoid air cells are clear. There is normal bone marrow signal in the skull base and calvarium. MRI/Brain W/WO Contrast IMPRESSION: 1. Stable foci of abnormal white matter signal in both cerebral hemispheres co nsistent with multiple sclerosis. 2. Stable area of apparent contrast enhancement in the left superior temporal gyrus. 3. Incidental note is made of an apparent type posterior cerebral artery on the left. Reading Location: [place] [id number]
--- OUTSIDE RECORDS SUMMARY | 2025-04-21 06:54 | XMS RPT_ITS | CCD ---
Author Organization [facility] Team Providers Care Packaging Supervisor Name Role Phone SHANNA JARRETT Unavailable Unavailable [facility] Unavailable Unavailable Isael Fish Unavailable Unavailable SHANNA JARRETT (AUTOMATIC LOG CUT OFF SAWYER) Unavailable Unavailable Isael Fish MD Primary Care Provider Gary Rilye Unavailable Unavailabl e Moodispaphilip, Alfredito F Unavailable Dr. Isael Fish Primary Care Provider Dr. Isael Fish Referring Provider Dr. Steph Irby Attending Provider Tammy LONDONO, PA Sahil Lu Attending Provider BRY Archer Attending Provider Isael Fish MD Primary Care Provider Gary Riley Unavailable Unavailabl e Moodispaphilip, Alfredito F Unavailable Gary Riley Unavailable Unavailabl e Moodispaw, Alfredito F Unavailable Isael Fish MD Primary Care Provider Isael Fish MD Primary Care Provider Gary Riley Unavailable Unavailabl e Moodispaw, Alfredito F Unavailable Mo Alfredito F Unavailable oM Alfredito F Unavailable Alfredito Hassan MD Unavailable [phone] Isael Fish MD Primary Care Provider Alfredito Hassan MD Unavailable [phone] Kleber CARLTON, Isael A Primary Care Provider Gary Riley Unavailable Unavailabl e Mo CARLTON, Alfredito F Unavailable [phone] Mo CARLTON, Alfredito F Unavailable [phone] Mo CARLTON, Alfredito F Unavailable Max GROVESN.ALANNAH, Romi Unavailable Bing Ruff PA-C Unavailable [phone] KLEBER, ISAEL A Primary Care Unavailable ELDER CHAO Attending Unavailable KADY SOL Attending Unavailable KLEBER, ISAEL A Primary Care Unavailable KLEBER, ISAEL A Attending Unavailable KLEBER, ISAEL A Primary Care Unavailable KLEBER, ISAEL A Attending Unavailable KLEBER, ISAEL A Primary Care Unavailable Kleber, Isael Primary Care Unavailable Kleber, Isael Attending Unavailable Kleber, Isael Primary Care Unavailable Claus Montero Referring Unavailable Claus Montero Attending Unavailable Kleber, Isael Primary Care Unavailable Kleber, Isael Referring Unavailable Kleber, Isael Attending Unavailable Kleber, Isael Referring Unavailable Kleber, Isael Attending Unavailable Kleber, Isael Primary Care Unavailable Kleber, Isael Primary Care Unavailable Sahil Walton Attending Unavailable Kleber, Isael Primary Care Unavailable Kleber, Isael Referring Unavailable Brannon Andrade Attending Unavailable Kleber, Isael Consulting Unavailable Kleber, Isael Primary Care Unavailable Kleber, Isael Referring Unavailable Sahil Rogers Attending Unavailable Kleber, Isael Primary Care Unavailable Kleber, Isael Referring Unavailable Claus Montero Attending Unavailable Kleber, Isael Primary Care Unavailable Kleber, Isael Referring Unavailable Kaushal Butt Attending Unavailable Kleber, Isael Primary Care Unavailable Kleber, Isael Referring Unavailable Sahil Rogers Attending Unavailable Kleber, Isael Primary Care Unavailable Sahil Walton Attending Unavailable Kleber, Isael Primary Care Unavailable Kleber, Isael Referring Unavailable Kleber, Isael Attending Unavailable ROBERTA ARECHIGA Referring UnavailROBERTA Rodriguez Attending Unavaila ble Kleber, Isael Primary Care Unavailable Kleber, Isael Primary Care Unavailable Kleber, Isael Referring Unavailable Sahil Rogers Attending Unavailable Allergies Allergy Classification Reported Allergen(s) Allergy Type Date of Onset Reaction(s) Facility Adhesive Tape (1 source) Adhesive Tape Substance Allergy 6 Unknown [facility] Aminoketones (1 source) buPROPion Drug Allergy 6 Other: See Comments [facility] Angiotensin Converting Enzyme (RODOLFO) Inhibitors (1 source) Lisinopril Drug Allergy 4 Swelling [facility] busPIRone (1 source) busPIRone Drug Allergy 7 Other: See Comments [facility] Corticosteroids (1 source) predniSONE Drug Allergy 5 Other: See Comments [facility] fexofenadine (1 source) fexofenadine Drug Allergy 9 Hives [facility] Work Phone: Lidocaine (1 source) Lidocaine Drug Allergy 6 Rash, Hives [facility] Opioid Agonists (2 sources) Codeine Drug Allergy 2 Intolerance, GI Upset, Vomiting [facility] QUEtiapine (1 source) QUEtiapine Drug Allergy 4 Other: See Comments [facility] Serotonin Reuptake Inhibitors (SSRIs) (3 sources) PARoxetine Drug Allergy 6 Other: See Comments [facility] (20 sources) Adhesive Tape; Translations: [ADHESIVE TAPE (ROSINS)] Propensity to adverse reactions (disorder) 6 Unknown [facility] Repository (20 sources) buPROPion; Translations: [BUPROPION HCL] Drug Allergy 6 Other: See Comments [facility] Repository (20 sources) busPIRone; Translations: [BUSPIRONE HCL] Drug Allergy 7 Other: See Comments [facility] Rep[facility] (20 sources) codeine; Translations: [CODEINE] Drug Allergy 2 Intolerance, GI Upset [facility] Rep[facility] (20 sources) FLUoxetine; Translations: [FLUOXETINE HCL] Drug Allergy 6 Other: See Comments [facility] Rep[facility] (20 sources) lidocaine; Translations: [LIDOCAINE] Drug Allergy 6 Rash, Hives [facility] Rep[facility] (20 sources) lisinopril; Translations: [LISINOPRIL] Drug Allergy 4 Swelling [facility] Repository (20 sources) morphine; Translations: [MORPHINE] Drug Allergy 4 Vomiting [facility] Rep[facility] (20 sources) PARoxetine; Translations: [PAROXETINE HCL] Drug Allergy 6 Other: See Comments [facility] Rep[facility] (20 sources) predniSONE; Translations: [PREDNISONE] Drug Allergy 5 Other: See Comments [facility] Rep[facility] (20 sources) sertraline; Translations: [SERTRALINE HCL] Drug Allergy 6 Other: See Comments [facility] Rep[facility] (20 sources) fexofenadine; Translations: [FEXOFENADINE] Drug Allergy 9 Hives [facility] Work Phone: (6 sources) Adhesive Tape; Translations: [adhesive tape] Propensity to adverse reactions 2 Unknown [facility] Repository (5 sources) buPROPion Drug Allergy 2 made depression worse [facility] Work Phone: (5 sources) FLUoxetine Drug Allergy 2 made depression worse [facility] Work Phone: (5 sources) PARoxetine Drug Allergy 2 made depression worse [facility] Work Phone: (5 sources) Sertraline Drug Allergy 2 made depression worse [facility] Work Phone: (20 sources) QUEtiapine; Translations: [QUETIAPINE] Drug Allergy 4 Other: See Comments [facility] (1 source) buPROPion Drug Allergy 5 [facility] (1 source) FLUoxetine Drug Allergy 5 [facility] (1 source) PARoxetine Drug Allergy 5 [facility] (1 source) Sertraline Drug Allergy 5 [facility] Repository Medications Current Medications Medication Drug Class(es) Dates Sig (Normalized) Sig (Original) amoxicillin 875 mg / clavulanate 125 mg oral tablet (12 sources) Penicillin-class Antibacterial Start: 11-21-2024 End: 12-01-2024 take 1 tablet by mouth twice daily amoxicillin-clav ulanate potassium (AUGMENTIN) 875-125 mg per tablet Take 1 tablet by mouth two times a day for 10 days. 20 tablet 11/21/2024 12/01/2024 Active Start: 01-16-2022 End: 01-26-2022 take 1 tablet by mouth every twelve hours Amoxicillin-Pot Clavulanate Discontinued 1 TABLET PO Q12H 20 January 15, 2022 11:00pm January 25, 2022 11:03pm Start: 11-15-2021 End: 01-16-2022 take 1 tablet by mouth twice daily Amoxicillin-Pot Clavulanate Discontinued 1 TABLET PO TWICE A DAY November 15, 2021 12:00am January 16, 2022 8:00am baclofen 10 mg oral tablet (20 sources) gamma-Aminobutyric Acid-ergic Agonist Start: 03-27-2023 End: 04-23-2024 take 1 tablet by mouth once daily as needed baclofen 10 mg tablet Indications: Multiple sclerosis, relapsing-remitting (HCC) Take 1 tablet by mouth once daily as needed. 90 tablet 1 01/24/2024 04/23/2024 Active Start: 12-07-2020 take 1 tablet by mike th once daily as needed baclofen (LIORESAL) 10 mg tablet Take 1 tablet by mouth once daily as needed. 30 tablet 5 12/07/2020 Active Comment on above: Take 1 tablet by mike th once daily as needed. biotin 5 mg disintegrating oral tablet (20 sources) Start: 06-02-2020 take 5000 ug by mouth once daily Biotin Active 5000 MCG PO DAILY June 01, 2020 11:00pm Start: 03-03-2020 End: 06-02-2020 take 5 mg by mouth once daily Biotin Discontinued 5 MG PO DAILY March 02, 2020 11:00pm June 02, 2020 2:55pm biotin 5 mg tab Take 5,000 mg by mouth once daily. Active Comment on above: Take 5,000 mg by mike th once daily. Calcium (20 sources) Phosphate Binder, Calcium Start: 02-11-2006 CALCIUM 500 MG TAB 1 tablet daily 0 02/11/2006 Active Comment on above: 1 tablet daily carvedilol 25 mg oral tablet (20 sources) alpha-Adrenergic Karlie, beta-Adrenergic Karlie Start: 12-01-2020 End: 04-16-2022 carvedilol (COREG) 25 mg tablet Take 1 tablet by mouth twice daily. Per Cardio 12/02/2020 Active Start: 06-09-2020 End: 12-01-2020 take 12.5 mg by mouth twice daily at mealtime Carvedilol Discontinued 12.5 MG PO TWICE A DAY 60 June 09, 2020 12:32pm December 01, 2020 5:15pm must administer with a meal/food Start: 06-01-2020 End: 06-09-2020 take 6.25 mg by mouth twice daily Carvedilol Discontinued 6.25 MG PO TWICE A DAY June 01, 2020 12:20pm June 09, 2020 12:30pm Start: 03-03-2020 End: 06-01-2020 take 6.25 mg by mouth once daily Carvedilol Discontinu ed 6.25 MG PO DAILY March 02, 2020 11:00pm June 01, 2020 12:22pm Comment on above: Take 1 tablet by mike th twice daily. Per Cardio cetirizine hydrochloride 10 mg oral capsule (20 sources) Histamine-1 Receptor Antagonist Cetirizine 10 mg cap Take by mouth. Active Comment on above: Take by mouth. cholecalciferol 0.025 mg oral tablet (20 sources) Vitamin D Start: 03-03-20 take 1000 [IU] by mouth once daily Cholecalciferol (Vitamin D3) Active 1000 UNIT PO DAILY March 02, 2020 11:00pm take 1 capsule by mouth once lucrecia ly Cholecalciferol, Vitamin D3, 1,000 unit cap Take 1,000 Units by mouth once daily. Active Comment on above: Take 1,000 Units by mouth once daily. clonazePAM 0.5 mg oral tablet (20 sources) Benzodiazepine Start: End: take 1 tablet by mouth three times daily clonazePAM (KLONOPIN) 0.5 mg tablet Indications: Multiple sclerosis (HCC) Take 1 tablet by mouth three times a day for 90 days. 270 tablet 02/02/2025 05/03/2025 Active Start: 11-13-2021 End: 08-23-2024 take 1 tablet by mouth three times daily clonazePAM (KLONOPIN) 0.5 mg tablet Indications: Multiple sclerosis (HCC) Take 1 tablet by mouth three times a day for 90 days. 270 tablet 05/25/2024 Active Start: 06-02-2020 take 0.5 mg by mouth twice daily Clonazepam Active 0.5 MG PO TWICE A DAY June 02, 2020 2:56pm Start: 06-01-2020 End: 06-02-2020 take 0.5 mg by mouth three times daily Clonazepam Discontinued 0.5 MG PO THREE TIMES A DAY May 31, 2020 11:00pm June 02, 2020 2:58pm Start: 03-03-2020 End: 06-01-2020 take 0.5 mg by mouth twice daily Clonazepam Discontinued 0.5 MG PO TWICE A DAY March 02, 2020 11:00pm June 01, 2020 12:20pm Comment on above: Take 1 tablet by mike three times daily for 90 days. Take 1 tablet by mike three times a day for 90 days. dexamethasone 6 mg oral tablet (1 source) Corticosteroid Start: End: take 1 tablet by mouth once daily at breakfast dexAMETHasone (DECADRON) 6 mg tablet Take 1 tablet by mouth daily with breakfast for 10 days. 10 tablet 0 11/11/2023 11/21/2023 Active Comment on above: Take 1 tablet by mike daily with breakfast for 10 days. dimethyl fumarate 240 mg delayed release oral capsule (20 sources) Start: take 1 capsule by mouth twice daily dimethyl fumarate (TECFIDERA) [address] Take 1 capsule by mouth two times a day. [email or web address] [email or web address] 180 capsule 3 01/05/2025 Active Start: 11-21-2022 End: 12-30-2024 take 1 capsule by mouth twice daily dimethyl fumarate (TECFIDERA) [address] Take 1 capsule (240 mg) by mouth two times a day. 180 capsule 3 01/24/2024 12/30/2024 Discontinued Start: 10-18-2022 take 1 capsule by mo [facility] twice daily dimethyl fumarate (TECFIDERA) [address] Indications: Multiple sclerosis, relapsing-remitting (HCC) Take 1 capsule by mouth twice daily. 60 capsule 5 10/18/2022 Active Start: 10-13-2020 End: 04-19-2022 take 1 capsule by mouth twice daily TECFIDERA [address] Take 1 capsule by mouth twice daily. 60 capsule 5 04/19/2022 Active Comment on above: TAKE 1 CAPSULE (240M G) BY MOUTH TWICE DAILY Take 1 capsule by mo [facility] twice daily. Take 1 capsule (240 mg) by mouth twice daily. Take 1 capsule (240 mg) by mouth two times a day. drospirenone / Ethinyl Estradiol (20 sources) Progestin, Estrogen Start: take 1 tablet by mouth once daily, then take 1 tablet by mouth once Drospirenone-Ethinyl Estradiol 3-0.03 mg per tablet Indications: Surveillance for control, oral contraceptives Take 1 tablet by mouth once daily. For continuous use. Take active pills only for 4 packs then one week of placebo pills. 112 tablet 5 11/26/2024 Active Start: 05-29-2024 End: 11-26-2024 take 1 tablet by mouth once daily, then take 1 tablet by mouth once Drospirenone-Ethinyl Estradiol 3-0.03 mg per tablet Indications: Surveillance for control, oral contraceptives Take 1 tablet by mouth once daily. For continuous use. Take active pills only for 4 packs then one week of placebo pills. 112 tablet 1 05/29/2024 11/26/2024 Discontinued Start: 05-29-2024 take 1 tablet by mike th once daily, then take 1 tablet by mouth once Drospirenone-Ethinyl Estradiol 3-0.03 mg per tablet Indications: Surveillance for control, oral contraceptives Take 1 tablet by mouth once daily. For continuous use. Take active pills only for 4 packs then one week of placebo pills. 112 tablet 1 05/29/2024 Active Start: 01-24-2024 End: 05-29-2024 take 1 tablet by mouth once daily, then take 1 tablet by mouth once Drospirenone-Ethinyl Estradiol 3-0.03 mg per tablet Indications: Surveillance for control, oral contraceptives Take 1 tablet by mouth once daily. For continuous use. Take active pills only for 4 packs then one week of placebo pills. 112 tablet 01/24/2024 05/29/2024 Discontinued Start: 01-24-2024 take 1 tablet by mike th once daily, then take 1 tablet by mouth once Drospirenone-Ethinyl Estradiol 3-0.03 mg per tablet Indications: Surveillance for control, oral contraceptives Take 1 tablet by mouth once daily. For continuous use. Take active pills only for 4 packs then one week of placebo pills. 112 tablet 01/24/2024 Active Start: 01-24-2024 take 1 tablet by mike th once daily, then take 1 tablet by mouth once Drospirenone-Ethinyl Estradiol 3-0.03 mg per tablet Indications: Surveillance for control, oral contraceptives Take 1 tablet by mouth once daily. For continuous use. Take active pills only for 4 packs then one week of placebo pills. 112 tablet 0 01/24/2024 Active Start: 03-01-2023 take 1 tablet by mike th once daily, then take 1 tablet by mouth once Drospirenone-Ethinyl Estradiol 3-0.03 mg per tablet Indications: Surveillance for control, oral contraceptives Take 1 tablet by mouth once daily. For continuous use. Take active pills only for 4 packs then one week of placebo pills. 112 tablet 5 03/01/2023 Active Start: 01-07-2023 take 1 tablet by mike th once daily, then take 1 tablet by mouth once Drospirenone-Ethinyl Estradiol 3-0.03 mg per tablet Indications: Surveillance for control, oral contraceptives Take 1 tablet by mouth once daily. For continuous use. Take active pills only for 4 packs then one week of placebo pills. 112 tablet 0 01/07/2023 Active Start: 02-28-2022 take 1 tablet by mike th once daily, then take 1 tablet by mouth once Drospirenone-Ethinyl Estradiol 3-0.03 mg per tablet Indications: Surveillance for control, oral contraceptives Take 1 tablet by mouth once daily. For continuous use. Take active pills only for 4 packs then one week of placebo pills. 84 tablet 5 02/28/2022 Active Start: 02-22-2022 End: 02-28-2022 take 1 tablet by mouth once daily, then take 1 tablet by mouth once Drospirenone-Ethinyl Estradiol 3-0.03 mg per tablet Indications: Surveillance for control, oral contraceptives Take 1 tablet by mouth once daily. For continuous use. Take active pills only for 4 packs then one week of placebo pills. 56 tablet 0 02/22/2022 02/28/2022 Discontinued Start: 01-15-2022 End: 02-22-2022 take 1 tablet by mouth once daily, then take 1 tablet by mouth once Drospirenone-Ethinyl Estradiol (BENJIE, 28,) 3-0.03 mg per tablet Indications: Surveillance for control, oral contraceptives Take 1 tablet by mouth once daily. For continuous use. Take active pills only for 4 packs then one week of placebo pills. 56 tablet 0 01/15/2022 02/22/2022 Discontinued Start: 01-15-2022 take 1 tablet by mike th once daily, then take 1 tablet by mouth once Drospirenone-Ethinyl Estradiol (BENJIE, 28,) 3-0.03 mg per tablet Indications: Surveillance for control, oral contraceptives Take 1 tablet by mouth once daily. For continuous use. Take active pills only for 4 packs then one week of placebo pills. 56 tablet 0 01/15/2022 Active Start: 11-13-2021 End: 01-15-2022 take 1 tablet by mouth once daily, then take 1 tablet by mouth once Drospirenone-Ethinyl Estradiol (BENJIE, 28,) 3-0.03 mg per tablet Indications: Surveillance for control, oral contraceptives Take 1 tablet by mouth once daily. For continuous use. Take active pills only for 4 packs then one week of placebo pills. 84 tablet 0 11/13/2021 01/15/2022 Discontinued Start: 11-13-2021 take 1 tablet by mike th once daily, then take 1 tablet by mouth once Drospirenone-Ethinyl Estradiol (BENJIE, 28,) 3-0.03 mg per tablet Indications: Surveillance for control, oral contraceptives Take 1 tablet by mouth once daily. For continuous use. Take active pills only for 4 packs then one week of placebo pills. 84 tablet 0 11/13/2021 Active Start: 03-30-2021 take 1 tablet by mike th once daily Drospirenone-Ethinyl Estradiol Active 1 TABLET PO DAILY March 30, 2021 3:26pm Start: 03-30-2021 take 1 tablet by mike th once daily Drospirenone-Ethinyl Estradiol Active 1 TABLET PO DAILY March 30, 2021 4:26pm Start: 10-13-2020 End: 03-30-2021 Drospirenone-Ethinyl Estradi ol Discontinued 1 EACH PO DAILY October 13, 2020 12:00am March 30, 2021 3:29pm Comment on above: Take 1 tablet by mike th once daily. For continuous use. Take active pills only for 4 packs then one week of placebo pills. empagliflozin 10 mg oral tablet (20 sources) Sodium-Glucose Cotransporter 2 Inhibitor Start: 03-06-20 End: 11-05-19 take 1 tablet by mouth once daily, then take 1 tablet by mouth once daily in the morning empagliflozin (JARDIANCE) 10 mg tablet Take 1 tablet by mouth once daily. Take 1 tablet once daily in the morning 90 tablet 1 11/06/2024 Active Comment on above: Take 1 tablet by mike th once daily. Take 1 tablet once daily in the morning escitalopram 20 mg oral tablet (20 sources) Serotonin Reuptake Inhibitor take 1 tablet by mouth once daily escitalopram oxalate (LEXAPRO) 20 mg tablet Take 20 mg by mouth once daily. One tablet daily Active Comment on above: Take 20 mg by mouth once daily. One tablet daily fluticasone propionate 0.05 mg/actuat metered dose nasal spray (20 sources) Corticosteroid Start: 06-10-20 take 2 spray(s) by mouth once daily fluticasone (FLONASE) 50 mcg/actuation nasal spray Indications: Dizziness , Sinus pressure Use 2 Sprays in each nostril once daily. Rinse mouth after use. 1 Bottle 11 06/10/2020 Active Start: 06-01-2020 End: 06-02-2020 take 1 spray(s) nasal route once daily Fluticasone Propionate (Allergy Relief (Fluticasone)) 50 mcg/actuation spray,suspension Active 2 SPRAY INTRANASAL DAILY June 02, 2020 2:57pm administer into each nostril Comment on above: Use 2 Sprays in each nostril once daily. Rinse mouth after use. levothyroxine sodium 0.2 mg oral tablet (20 sources) l-Thyroxine Start: 4 End: 5 take 1 tablet by mouth once daily levothyroxine (SYNTHROID) 200 mcg tablet Take 1 tablet by mouth once daily. 90 tablet 1 02/02/2025 Active Start: 08-31-2024 End: 02-02-2025 take 1 tablet by mouth once daily levothyroxine (LEVOXYL) 25 mcg tablet Take 1 tablet by mouth once daily. Along with your 200 mcg tab for a total of 225 mcg a day. Take on empty stomach. For Thyroid 90 tablet 1 02/02/2025 Active Start: 09-02-2023 End: 08-29-2024 take 1 tablet by mouth once daily levothyroxine (LEVOXYL) 25 mcg tablet Take 1 tablet by mouth once daily. Along with your 200 mcg tab for a total of 225 mcg a day. Take on empty stomach. For Thyroid 90 tablet 1 01/24/2024 08/29/2024 Discontinued Start: 01-07-2023 End: 08-29-2024 take 1 tablet by mouth once daily levothyroxine (SYNTHROID) 200 mcg tablet Take 1 tablet by mouth once daily. 90 tablet 1 01/24/2024 08/29/2024 Discontinued Start: 03-30-2021 Levothyroxine Active 50 MCG PO .MONDAY March 29, 2021 11:00pm Start: 06-02-2020 End: 01-05-2023 take 1 tablet by mouth once daily levothyroxine (SYNTHROID) 200 mcg tablet Take 1 tablet by mouth once daily. 90 tablet 1 06/20/2022 01/05/2023 Discontinued Start: 06-01-2020 End: 06-02-2020 Levothyroxine Discontinued 2 00 MCG PO DAILY June 01, 2020 12:16pm June 02, 2020 2:58pm Take with 25mcg tablet Start: 06-01-2020 End: 06-02-2020 Levothyroxine Discontinued 2 5 MCG PO DAILY May 31, 2020 11:00pm June 02, 2020 2:57pm Take with 200mcg tab Start: 03-03-2020 End: 06-01-2020 Levothyroxine Discontinued 2 00 MCG PO MOTUWETHFR March 02, 2020 11:00pm June 01, 2020 12:22pm Comment on above: Take 1 tablet by mike th once daily. Take 1 tablet by mike th once daily. Along with your 200 mcg tab for a total of 225 mcg a day. Take on empty stomach. For Thyroid losartan potassium 50 mg oral tablet (20 sources) Angiotensin 2 Receptor Karlie Start: 08-31-2024 End: 02-02-2025 take 1 tablet by mouth once daily losartan (COZAAR) 50 mg tablet Indications: Cardiomyopathy, unspecified type (HCC) Take 1 tablet by mouth once daily. 90 tablet 1 02/02/2025 Active Start: 08-28-2022 End: 08-29-2024 take 1 tablet by mouth once daily losartan (COZAAR) 50 mg tablet Indications: Cardiomyopathy, unspecified type (HCC) Take 1 tablet by mouth once daily. 90 tablet 1 01/24/2024 08/29/2024 Discontinued Start: 08-09-2021 End: 08-28-2022 take 1 tablet by mouth once daily losartan (COZAAR) 25 mg tablet Indications: Cardiomyopathy, unspecified type (HCC) Take 1 tablet by mouth once daily. 0 12/07/2021 08/28/2022 Discontinued Start: 03-03-2020 End: 08-09-2021 take 12.5 mg by mouth once daily Losartan Discontinued 12.5 MG PO DAILY March 02, 2020 11:00pm August 09, 2021 7:48am Comment on above: Take 1 tablet by mike th once daily. meclizine hydrochloride 12.5 mg oral tablet (20 sources) Antiemetic Start: take 1 tablet by mouth every eight hours as needed meclizine (ANTIVERT) 12.5 mg tab Take 1 tablet by mouth three times daily as needed (dizziness). 90 tablet 1 12/15/2022 Active Comment on above: Take 1 tablet by mike th three times daily as needed (dizziness). montelukast 10 mg oral tablet (20 sources) Leukotriene Receptor Antagonist Start: 3 End: take 1 tablet by mouth once daily at bedtime montelukast (SINGULAIR) 10 mg tablet Take 1 tablet by mouth daily at bedtime. 90 tablet 1 11/06/2024 Active Start: 07-26-2021 End: 01-05-2023 take 1 tablet by mouth once daily at bedtime montelukast (SINGULAIR) 10 mg tablet Take 1 tablet by mouth daily at bedtime. 90 tablet 1 06/20/2022 01/05/2023 Discontinued Comment on above: Take 1 tablet by mike th daily at bedtime. MULTI-VITAMIN TAB (20 sources) Start: 02-11-2006 MULTI-VITAMIN TAB 1 tablet daily 0 02/11/2006 Active Comment on above: 1 tablet daily Multivitamin With Iron (5 sources) Start: 03-03-2020 Multivitamin With Iron Active 1 EACH PO DAILY March 03, 2020 2:11pm Start: 03-03-2020 Multivitamin W ith Iron Active 1 EACH PO DAILY March 02, 2020 11:00pm Start: 03-03-2020 Multivitamin W ith Iron Active 1 EACH PO DAILY March 03, 2020 12:00am Harbert 2-Vpo-Tyv-Fish Oil (5 sources) Start: 10-13-2020 take 500 mg by mouth once daily Harbert 0-Hbd-Brt-Fish Oil Active 500 MG PO DAILY October 13, 2020 2:55pm Start: 10-13-2020 take 500 mg by mouth once daily Harbert 3-Vss-Oec-Fish Oil Active 500 MG PO DAILY October 13, 2020 12:00am Start: 10-13-2020 take 500 mg by mouth once daily Harbert 6-Xts-Vto-Fish Oil Active 500 MG PO DAILY October 13, 2020 1:00am omega-3 fatty acids 1,000 mg cap (20 sources) take 1 capsule by mo [facility] once daily omega-3 fatty acids 1,000 mg cap Take 1,000 mg by mouth once daily. Active take 1 capsule by mouth once lucrecia ly omega-3 fatty acids 1,000 mg cap Take 1,000 mg by mouth once daily. 0 Active Comment on above: Take 1,000 mg by mike th once daily. omeprazole 40 mg delayed release oral capsule (20 sources) Proton Pump Inhibitor Start: 08-31-2024 End: 02-02-2025 take 1 capsule by mouth twice daily omeprazole (PRILOSEC) 40 mg capsule Take 1 capsule by mouth two times a day. 180 capsule 1 02/02/2025 Active Start: 06-20-2022 End: 08-29-2024 take 1 capsule by mouth twice daily omeprazole (PRILOSEC) 40 mg capsule Take 1 capsule by mouth two times a day. 180 capsule 1 01/24/2024 08/29/2024 Discontinued Start: 07-26-2021 End: 01-31-2022 take 1 tablet by mouth once daily before breakfast Omeprazole Magnesium (PRILOSEC OTC) 20 mg tablet Take 1 tablet by mouth daily before breakfast. 1/2 hr before meal. 0 07/26/2021 01/31/2022 Discontinued (Clinical Decision) Start: 12-01-2020 End: 03-30-2021 take 20 mg by mouth once daily Omeprazole Discontinued 20 MG PO DAILY December 01, 2020 12:00am March 30, 2021 3:28pm Comment on above: Take 1 tablet by [facility] daily before breakfast. 1/2 hr before meal. Take 1 capsule by [facility] twice daily. Take 1 capsule by [facility] two times a day. pregabalin 50 mg oral capsule (20 sources) Start: 09-20-2023 End: 04-23-2024 take 1 capsule by mouth twice daily pregabalin (LYRICA) 50 mg capsule Indications: Multiple sclerosis, relapsing-remitting (HCC) Take 1 capsule by mouth two times a day for 90 days. 180 capsule 1 01/24/2024 Active Start: 09-21-2022 End: 10-09-2023 take 1 capsule by mouth twice daily pregabalin (LYRICA) 25 mg capsule Indications: Multiple sclerosis, relapsing-remitting (HCC) Take 1 capsule by mouth two times a day for 30 days. 60 capsule 5 09/09/2023 10/09/2023 Active Comment on above: Take 1 capsule by [facility] twice daily for 90 days. Take 1 capsule by [facility] twice daily for 30 days. Take 1 capsule by [facility] two times a day for 30 days. Take 1 capsule by [facility] two times a day for 180 days. Take 1 capsule by [facility] two times a day for 90 days. pyridoxine hydrochloride 25 mg oral tablet (5 sources) Start: 2019 take 25 mg by mouth once daily Pyridoxine (Vitamin B6) Active 25 MG PO DAILY March 02, 2020 11:00pm 72 hr scopolamine 0.0139 mg/hr transdermal system (19 sources) Anticholinergic Start: 2023 scopolamine (TRANSDERM-SCOP) patch 1.5 mg/72 hr (delivers 1 mg over 3 days) Apply 1 Patch as directed every 72 hours. Apply patch to skin behind ear 4hrs prior to travel. 3 Patch 05/25/2024 Active semaglutide 2.4 mg/0.75 mL (3.2 mg/mL) subcutaneous compounded injection (6 sources) inject 2.4 mg by subcutaneous injection every week semaglutide 2.4 mg/0.75 mL (3.2 mg/mL) subcutaneous compounded injection Inject 2.4 mg subcutaneously one time a week. Active spironolactone 100 mg oral tablet (20 sources) Aldosterone Antagonist Start: 2023 End: 2024 spironolactone (ALDACTONE) 100 mg tablet TAKE ONE TABLET ONCE PER DAY AT THE SAME TIME EVERY DAY 90 tablet 1 02/02/2025 Active Start: 03-03-2020 End: 08-29-2024 spironolactone (ALDACTONE) 1 00 mg tablet TAKE ONE TABLET ONCE PER DAY AT THE SAME TIME EVERY DAY 90 tablet 1 01/24/2024 08/29/2024 Discontinued Comment on above: TAKE ONE TABLET ONCE PER DAY AT THE SAME TIME EVERY DAY vitamin b6 100 mg oral tablet (20 sources) Start: 12-16-2009 pyridoxine hcl(VITAMIN B-6 100 MG TAB) One daily. 0 0 12/16/2009 Active Comment on above: One daily. Completed/Discontinued Medications Medication Drug Class(es) Dates Sig (Normalized) Sig (Original) busPIRone hydrochloride 15 mg oral tablet (20 sources) Start: 07-26-2021 End: 03-18-2024 busPIRone (BUSPAR) 15 mg tablet 1 tab three times a day 270 tablet 1 03/06/2023 03/18/2024 Discontinued (Discontinued by Patient) Start: 12-01-2020 take 15 mg by mouth twice daily Buspirone Active 15 MG PO TWICE A DAY December 01, 2020 4:28pm Start: 10-13-2020 End: 12-01-2020 take 15 mg by mouth once daily Buspirone Discontinued 15 MG PO DAILY October 13, 2020 12:00am December 01, 2020 4:30pm Comment on above: 1 tab three times a day gemfibrozil 600 mg oral tablet (20 sources) Peroxisome Proliferator Receptor alpha Agonist Start: 020 End: 023 take 1 tablet by mouth twice daily gemfibrozil (LOPID) 600 mg tablet Take 1 tablet by mouth twice daily. 180 tablet 1 08/15/2022 03/06/2023 Discontinued (Clinical Decision) Comment on above: Take 1 tablet by mike th twice daily. iv contrast (will be provided with radiology test) (3 sources) Start: End: inject 1 dose intravenously once iv contrast (will be provided with radiology test) MRI Brain Inject, intravenously, once for 1 dose.No IV access, insert saline lock prior to beginning of sedation, infusion, injection of imaging exam.Discontinue saline lock post exam. If Pt. has a central line or IVAD, may access for administration according to line specific nursing protocol.Once exam is complete flush line and de-access according to line specific nursing protocol in the MR contrast administration guidelines link 1 Each 12/30/2024 12/31/2024 Start: 12-06-2022 End: 12-07-2022 inject 1 dose intravenously once iv contrast (will be provided with radiology test) MRI Brain Inject, intravenously, once for 1 dose.No IV access, insert saline lock prior to beginning of sedation, infusion, injection of imaging exam.Discontinue saline lock post exam. If Pt. has a central line or IVAD, may access for administration according to line specific nursing protocol.Once exam is complete flush line and de-access according to line specific nursing protocol in the MR contrast administration guidelines link 1 Each 0 12/06/2022 12/07/2022 Active Start: 12-27-2021 End: 12-28-2021 inject 1 dose intravenously once iv contrast (will be provided with radiology test) MRI Brain Inject, intravenously, once for 1 dose.No IV access, insert saline lock prior to beginning of sedation, infusion, injection of imaging exam.Discontinue saline lock post exam. If Pt. has a central line or IVAD, may access for administration according to line specific nursing protocol.Once exam is complete flush line and de-access according to line specific nursing protocol in the MR contrast administration guidelines link 1 Each 0 12/27/2021 12/28/2021 Active Comment on above: MRI Brain Inject, in travenously, once for 1 dose.No IV access, insert saline lock prior to beginning of sedation, infusion, injection of imaging exam.Discontinue saline lock post exam. If Pt. has a central line or IVAD, may access for administration according to line specific nursing protocol.Once exam is complete flush line and de-access according to line specific nursing protocol in the MR contrast administration guidelines link metFORMIN hydrochloride 500 mg oral tablet (20 sources) Biguanide Start : 03-03 End: 03-06 take 1 tablet by mouth twice daily at mealtime metFORMIN (GLUCOPHAGE) 500 mg tablet Take 1 tablet by mouth twice daily with meals. 180 tablet 1 06/20/2022 03/06/2023 Discontinued (Clinical Decision) Comment on above: Take 1 tablet by mike th twice daily with meals. methylPREDNISolone 4 mg oral tablet (10 sources) Corticosteroid Start : 11-15 End: 01-21 take 1 tablet by mouth once Methylprednisolone (Medrol (Eddie)) 4 mg tablets,dose pack Discontinued 4 MG PO per package directions 24 02January 15, 2022 11:00pm January 20, 2022 11:04pm QUEtiapine 50 mg oral tablet (20 sources) Atypical Antipsychotic Start : 03-06 End: 03-18 take 1 tablet by mouth once daily at bedtime QUEtiapine (SEROQUEL) 50 mg tablet Take 1 tablet by mouth daily at bedtime. 90 tablet 1 03/06/2023 03/18/2024 Discontinued (Discontinued by another Health Care Provider) Start: 07-26-2021 End: 03-06-2023 take 1 tablet by mouth once daily at bedtime QUEtiapine (SEROQUEL) 200 mg tablet Take 1 tablet by mouth daily at bedtime. 90 tablet 1 06/20/2022 03/06/2023 Discontinued Start: 06-02-2020 Quetiapine Act casandra 200 MG PO AT BEDTIME June 02, 2020 2:58pm take with 50mg tab Start: 06-01-2020 End: 06-02-2020 Quetiapine Discontinued 100 MG PO AT BEDTIME June 01, 2020 12:17pm June 02, 2020 2:58pm take with 50mg tab Start: 06-01-2020 End: 06-02-2020 take 2 tablets by mouth at bedtime Quetiapine Discontinued 50 MG PO AT BEDTIME May 31, 2020 11:00pm June 02, 2020 2:58pm take with 100mg tab Start: 03-03-2020 End: 06-01-2020 take 100 mg by mouth once daily Quetiapine Discontinue d 100 MG PO DAILY March 02, 2020 11:00pm June 01, 2020 12:22pm Comment on above: Take 1 tablet by mike th daily at bedtime. Problems Active Problems Problem Classification Problem Date Documented Date Episodic/Chronic Abdominal pain (2 sources) Epigastric pain; Translations: [Epigastric pain] Episodic Anxiety disorders (20 sources) Generalized anxiety disorder; Translations: [Generalized anxiety disorder] Onset: 03-14-2016 03-14-2016 Chronic Complications of surgical procedures or medical care (20 sources) Postoperative hypothyroidism; Translations: [Postprocedural hypothyroidism] Onset: 04-23-2003 07-18-2016 Chronic Conduction disorders (20 sources) Left bundle-branch block, unspecified; Translations: [Left bundle branch block] Onset: 03-14-2016 08-16-2017 Chronic Congestive heart failure; nonhypertensive (20 sources) Chronic systolic heart failure; Translations: [Chronic systolic (congestive) heart failure] Onset: 03-06-2023 07-06-2020 Chronic Contraceptive and procreative management (4 sources) Oral contraception; Translations: [Encounter for surveillance of contraceptive pills] Episodic Disorders of lipid metabolism (20 sources) Mixed hyperlipidemia; Translations: [Mixed hyperlipidemia] Onset: 03-14-2016 03-14-2016 Chronic Esophageal disorders (20 sources) Gastroesophageal reflux disease without esophagitis; Translations: [Gastro-esophageal reflux disease without esophagitis] Onset: 09-27-2021 09-27-2021 Chronic Essential hypertension (20 sources) Essential (primary) hypertension; Translations: [Essential hypertension] Onset: 08-16-2017 08-16-2017 Chronic Headache; including migraine (20 sources) Migraine with aura; Translations: [Migraine with aura, not intractable, without status migrainosus] Onset: 10-02-2021 10-02-2021 Chronic Immunizations and screening for infectious disease (7 sources) Contact with and (suspected) exposure to other viral communicable diseases; Translations: [Contact with or suspected exposure to other viral communicable disease] Onset: 11-21-2024 Episodic Mood disorders (20 sources) Depressive disorder; Translations: [Depression] Onset: 07-18-2016 07-18-2016 Chronic Mood disorders (1 source) Mood disorders; Translations: [Depression, unspecified depression type] Onset: 07-18-2016 Multiple sclerosis (20 sources) Relapsing remitting multiple sclerosis; Translations: [Multiple sclerosis] Onset: 12-16-2012 Chronic Nutritional deficiencies (1 source) Vitamin D deficiency; Translations: [Vitamin D deficiency, unspecified] Chronic Other aftercare (2 sources) Other exterminator termite (current) drug therapy; Translations: [Medication management] Onset: 12-16-2019 Episodic Other and ill-defined heart disease (20 sources) Takotsubo cardiomyopathy; Translations: [Takotsubo syndrome] Onset: 03-14-2016 07-06-2020 Chronic Other and ill-defined heart disease (1 source) Takotsubo syndrome; Translations: [Takotsubo cardiomyopathy] Onset: 02-16-2023 Chronic Other ear and sense organ disorders (1 source) Impacted cerumen in right ear; Translations: [Impacted cerumen, right ear] 09-11-2023 Episodic Other ear and sense organ disorders (1 source) Acute otitis externa of right ear; Translations: [Unspecified acute noninfective otitis externa, right ear] 11-21-2024 Episodic Other endocrine disorders (20 sources) Polycystic ovary syndrome; Translations: [Polycystic ovarian syndrome] Onset: 03-14-2016 03-14-2016 Chronic Other lower respiratory disease (1 source) Rib pain; Translations: [Pleurodynia] 09-11-2023 Episodic Other nervous system disorders (1 source) Paresthesia of lower extremity; Translations: [Anesthesia of skin] 03-18-2024 Episodic Other nutritional; endocrine; and metabolic disorders (20 sources) Metabolic syndrome X; Translations: [Metabolic syndrome] Onset: 03-14-2016 03-14-2016 Chronic Other nutritional; endocrine; and metabolic disorders (1 source) Body mass index 30+ - obesity; Translations: [Obesity, unspecified] Chronic Other nutritional; endocrine; and metabolic disorders (20 sources) Obese class II; Translations: [Obesity, unspecified] Onset: 08-15-2022 Chronic Other nutritional; endocrine; and metabolic disorders (20 sources) Body mass index 40+ - severely obese; Translations: [Morbid (severe) obesity due to excess calories] Onset: 08-15-2022 Chronic Other nutritional; endocrine; and metabolic disorders (1 source) Morbid (severe) obesity due to excess calories; Translations: [Obesity, Class III, BMI 40-49.9 (morbid obesity) ([facility])] Onset: 03-06-2023 Chronic Other screening for suspected conditions (not mental disorders or infectious disease) (2 sources) Encounter for screening for diabetes mellitus; Translations: [Encounter for screening mammogram for malignant neoplasm of breast] Onset: 01-21-2025 Episodic Other upper respiratory disease (20 sources) Seasonal allergy; Translations: [Other seasonal allergic rhinitis] Onset: 07-26-2021 07-26-2021 Chronic Other upper respiratory infections (7 sources) Acute maxillary sinusitis; Translations: [Acute maxillary sinusitis, unspecified] Episodic Alison-; endo-; and myocarditis; cardiomyopathy (20 sources) Cardiomyopathy, unspecified; Translations: [Cardiomyopathy] Onset: 08-16-2017 Chronic Unclassified (1 source) Unknown / UNK(Unknown) Onset: 08-16-2017 Unclassified (1 source) Established Patient Follow-Up Onset: 02-12-2025 Unclassified (1 source) Low back pain, unspecified; Translations: [Low back pain, unspecified] Onset: 05-22-2024 Past or Other Problems Problem Classification Problem Date Documented Da te Episodic/Chronic Nonspecific chest pain (20 sources) Chest pain; Translations: [Chest pain, unspecified] Resolved: 06-04-2018 06-04-2018 Episodic Other aftercare (20 sources) Patient encounter status; Translations: [Other exterminator termite (current) drug therapy] Onset: 12-16-2019 12-16-2019 Episodic Other connective tissue disease (20 sources) Spasm; Translations: [Cramp and spasm] Onset: 12-16-2019 Episodic Other connective tissue disease (1 source) Other muscle spasm; Translations: [Muscle spasm] Onset: 03-18-2024 Episodic Other infections; including parasitic (20 sources) Personal history of other infectious and parasitic diseases; Translations: [History of 2019 novel coronavirus disease (COVID-19)] Onset: 10-12-2020 01-25-2021 Episodic Other nervous system disorders (3 sources) Anesthesia of skin; Translations: [Numbness and tingling of left leg] Onset: 03-18-2024 Episodic Other nervous system disorders (2 sources) Paresthesia of skin; Translations: [Numbness and tingling of left leg] Onset: 03-18-2024 Episodic Residual codes; unclassified (20 sources) Family history of malignant neoplasm of pancreas; Translations: [Family history of malignant neoplasm of digestive organs] Onset: 06-05-2019 06-05-2019 Episodic Spondylosis; intervertebral disc disorders; other back problems (20 sources) Lumbar disc prolapse with radiculopathy; Translations: [Intervertebral disc disorders with radiculopathy, lumbar region] Onset: 08-14-2016 02-19-2018 Episodic Unclassified (1 source) Patient encounter status 11-22-2024 Results Test Name Value Interpretation Reference Range Facility SCRN MAMM (CAD)W/JOSIANE BILATo n 03-29-2025 SCRN MAMM (CAD)W/JOSIANE BILAT [facility] Imaging Services [address] [place] [address] [id number] SCRN MAMM (CAD)W/JOSIANE BILAT MR#: [id number] Acct: [id number] Name: ROMI RODRIGEZ Rep #: [id number] : 1985 F 39 From: Yadira Thomason PCP: Dr. Isael Fish MD Status: REG CLI Study: SCRN MAMM (CAD)W/JOSIANE BILAT Date of Exam: 03/08 12/29 Exam# [id number] Ordering Dr: Isael Fish MD EXAM: SCRN MAMM (CAD)W/JOSIANE BILAT DATE: 03/29/2025 CLINICAL HISTORY: F, Age 39 y/o , SCREENING BREAST CANCER RISK ASSESSMENT: Has not been calculated TECHNIQUE: SCRN MAMM (CAD)W/JOSIANE BILAT COMPARISON: Prior exam(s) dated 03/13/2024. FINDINGS: TISSUE DENSITY: The breast tissue is composed of scattered areas of fibroglandular density. Bilateral Breast Mammographic Findings: Benign round microcalcifications are seen in both breasts. No suspicious masses, suspicious clustered microcalcifications, architectural distortion or secondary sign of malignancy is identified in either breast. BI/SCRN MAMM (CAD)W/JOSIANE BILAT IMPRESSION: Benign screening mammogram OVERALL FINAL ASSESSMENT BI-RADS 2: BENIGN RECOMMEND ANNUAL MAMMOGRAPHIC SCREENING. RECOMMENDATION: The patient should return in 1 year for routine yearly screening mammography. A letter with findings and recommendations will be mailed to the patient. Reading Location: [id number] CC: Dr. Isael Fish MD Breast Puller: Signed [facility] CNDIETERon 02-12-2025 CNOV Office Visit ([facility] ) ROMI RODRIGEZ ([id number]) 1985 F Date Time Provider Department 02/12/25 11:15 AM ELDER CHAO During your visit today, we recorded the following information about you: Pulse Blood pressure Weight Height 69/minute 103/72 119.7 kg 1.778 m Elder Chao PA-C 02/12/2025 1:45 PM Signed [facility] S[facility]OS[facility] FOLLOWUP/ESTABLISHED PATIENT VISIT PRINCIPAL NEUROLOGIC DIAGNOSIS: Multiple Sclerosis [facility] FOLLOWUP VISIT MS DISEASE HISTORY: Date of onset: apr-2009 Date of diagnosis: April-2009 Disease course from Onset; RIS with active MRI in past. h/o chronic migraines and 2 fatty masses were found on her brain, was having annual MRI monitoring and one of the MRIs showed lesions. Current MS Disease Therapy: Tecfidera (started August 2017) Previous MS Disease Therapies: - Avonex since 2008 - 07/2014-due to MRI progression - copaxone 40 mg caused exhaustion after each Saturday injection fatigue had to call off work. Has never had IV steroids, had oral prednisone and it was discontinued due to side effects heart was racing, I was beet red. - copaxone 20 mg started 09/14/2014 (breakthrough disease) - dimethyl fumarate 09/2020- 05/2021 (stopped due to GI intolerance) Last MRI brain: 01/18/23 MRI cervical and thoracic : 11/24/20 CHIEF COMPLAINT: Follow-up on MS disease modifying therapy - Virtual Visit INTERVAL HISTORY: Usual treating team: Isabella/Heath --> Mauro/Heath The patient is accompanied by self. The patient was last seen 02/01/23, currently taking DMF . More affordable now. Since the patient's last visit the patient reports overall feeling stable. Started semaglutide - end of Aug and switched to tirzepetide about 1 month ago - lost about 35-40 lbs - mild gerd - food noise decreased Saw cardiology in January 2025 for follow-up Lyrica continues to be helpful for hug sensations Seeing pain management for back - increased to Lyrica 100 mg BID (but stayed at 50 mg in morning, 100 mg qhs) - did get epidural shots in May after pain was elevated and it was helpful Does take melatonin for sleep - stopped seroquel about 1 year - feels less foggy since stopping Swimming and walking for exercise Did have cellulitis on right knee after a fall in March 2024 Sensory disruption (burning) in left arm and legs and feet Cramping in feet/calves - has baclofen 5 mg but makes very sleepy - takes klonopin 0.5 mg BID 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 - couldn't squeeze a twenty-nine palms correctly the other day SUBJECTIVE AND REVIEW OF SYSTEMS: Neuro-QoL Functions (higher=better functioning) Flowsheet Row [facility] from 12/29/2019 in [facility] Office Visit from 04/25/2018 in [facility] Office Visit from 08/14/2017 in [facility] Upper Extremity Domain T Score 50 56.84 50.03 Lower Extremity Domain T Score 57 62.28 62.28 Cognitive Function Domain T Score 37 46.85 46.85 Positive Affect Well Being T Score -- 63.61 57.39 Ability To Participate In Social Roles T Score 42 47.04 54.53 Satisfaction With Social Roles T Score 41 50.14 49.2 Neuro-QoL Symptoms (higher=worse symptoms) Flowsheet Row [facility] from 12/29/2019 in [facility] Office Visit from 04/25/2018 in [facility] Office Visit from 08/14/2017 in [facility] Sleep Domain T Score 60 55.63 54.3 Fatigue Domain T Score 64 64.84 52.3 Anxiety Domain T Score 72 64.58 65.23 Depression Domain T Score 55 50.36 47.97 Stigma Domain T Score 51 50.07 48.56 Emotional Behavior Dyscontrol T Score -- 50.82 47.39 *NeuroQoL is a multi-domain patient-reported quality of life questionnaire. PHQ-9 Flowsheet Row Office Visit from 03/18/2024 in [facility] Office Visit from 03/06/2023 in [facility] PHQ-9 Score 3 7 *PHQ-9 is a questionnaire for depressive symptoms, with scores 0-4 indicating none, 5-9 mild, 10-14 moderate, 15-19 moderately severe, and 20-27 severe symptoms. PROMIS-10 Flowsheet Row Office Visit from 11/21/2024 in [facility] Appointment from 11/18/2024 in [facility] Global Physical Health T Score 47.7 47.7 Global Mental Health T Score 59 59 0-10 Standard Pain Scale 3 3 *PROMIS-10 is a patient-reported quality of life measure, typically reported as physical and mental domains. Here scores are expressed as percentiles, where the lowest possible score is one, the highest possible score is 99, and 50 is average. Refer to patient-entered data. Mood: PHQ9 responses reviewed and appear below Pain related to today's visit:reviewed on nursing intake documentation PAST HISTORY was reviewed and updated: PAST MEDICAL HISTORY Diagnosis Date Cardiomyopathy (HCC) 01/2008 apical balloon syndrome broken heart disease stress reaction to losing her father Chronic systolic heart failure (HCC) Chronic systoli (more content not included)... Normal [facility] Cardiology Visit Reporton Cardiology Visit Report [facility] [address] [place] [address] OFFICE VISIT Date of Service: 01/21/25 MR#: [id number] Acct: [id number] Name: ROMI RODRIGEZ Rep #: [id number] : 1985 Provider: Dr. Kaushal Butt MD Age/Sex: 39/F [place] [facility] Status: Signed HPI HPI History of Present Illness Details: This is a 39-year-old white female with a past cardiovascular history of Takotsubo syndrome who presents for outpatient cardiovascular follow-up. She states she has been doing well on her advanced dose of carvedilol/Coreg. She had no ongoing concerns of chest discomfort or difficulty breathing. There is been no orthopnea or PND or obvious peripheral pitting edema. She has had no ongoing issues with palpitations, near-syncope, or syncope. She says that overall she has been doing well. She did raise some questions as to why she still has the left bundle branch block, at the number of medications that she takes, and her issues with weight gain. She is no near syncope or syncope. Her physical exam demonstrates clear lung oropeza regular rate and rhythm and no pedal edema. Intake Vital Signs 11/29/23 13:51 07/22/24 15:47 01/18/25 16:12 01/21/25 15:44 Height 5 ft 9 in 5 ft 9 in 5 ft 9 in 5 ft 9 in Weight: 268 lb BMI 39.5 BP 114/83 H Blood Pressure Location Lt brachial Position Sitting Respiration 16 Pulse 97 Pulse Source Monitor Intake Visit Reasons: 1 Y FU Diffuser Operator Required: No Accompanied by: Self Is patient in pain?: No Allergies lisinopril Allergy (Verified 01/21/25 15:47) Angioedema adhesive tape Adverse Reaction (Unknown, Verified 01/21/25 15:47) Unknown bupropion (From Wellbutrin) Adverse Reaction (Unknown, Verified 01/21/25 15:47) made depression worse fluoxetine (From Prozac) Adverse Reaction (Unknown, Verified 01/21/25 15:47) made depression worse paroxetine (From Paxil) Adverse Reaction (Unknown, Verified 01/21/25 15:47) made depression worse sertraline (From Zoloft) Adverse Reaction (Unknown, Verified 01/21/25 15:47) made depression worse codeine Adverse Reaction (Verified 01/21/25 15:47) Nausea morphine Adverse Reaction (Verified 01/21/25 15:47) Nausea prednisone Adverse Reaction (Verified 01/21/25 15:47) heart racing, face redness Medications ???Medication ???Instructions ???Recorded ???Confirmed ???Type cholecalciferol (vitamin D3) 25 1,000 unit PO DAILY 03/03/2001/21 History mcg (1,000 unit) tablet multivitamin with iron 1 ea PO DAILY 03/03/20 01/21/25 Hi story pyridoxine (vitamin B6) 25 mg 25 mg PO DAILY 03/03/20 01/21/25 H istory tablet biotin 5,000 mcg disintegrating 5,000 mcg PO DAILY 06/02/20 History tablet clonazepam 0.5 mg tablet 0.5 mg PO BID PRN Anxiety 06/02/20 01/21/25 History fluticasone propionate 50 2 spray intranasal DAILY PRN 06/0201/21/25 History mcg/actuation nasal Allergies spray,suspension (Allergy Relief (fluticasone)) omega 3-dha 60 mg-epa 90 mg-fish 500 mg PO DAILY 10/13/20 01/21/25 History oil 500 mg capsule, delayed release dimethyl fumarate 240 mg 240 mg PO BID 03/30/21 01/21/25 Hi story capsule,delayed release drospirenone 3 mg-ethinyl 1 tab PO DAILY 03/30/21 01/21/25 H istory estradiol 0.03 mg tablet baclofen 10 mg tablet 10 mg PO DAILY PRN 02/12/23 History levothyroxine 200 mcg tablet 200 mcg PO DAILY 02/12/23 01/21/25 History levothyroxine 25 mcg tablet 25 mcg PO DAILY 11/29/23 01/21/25 History meclizine 12.5 mg tablet 12.5 mg PO PRN 11/29/23 01/21/25 H istory omeprazole 40 mg capsule,delayed 40 mg PO DAILY 11/29/23 01/21/25 H istory release empagliflozin 10 mg tablet 10 mg PO DAILY #90 tabs 01/24/24 0 01/21/25 Rx (Jardiance) pregabalin 50 mg capsule 100 mg PO BID 07/22/24 01/21/25 Hi story carvedilol 25 mg tablet 25 mg PO BID #180 tabs 12/07/24 Rx escitalopram oxalate 20 mg tablet 20 mg PO DAILY #90 tabs 12/07/24 01/21/25 Rx losartan 25 mg tablet 25 mg PO DAILY #90 tabs 12/07/24 0 01/21/25 Rx spironolactone 100 mg tablet 100 mg PO DAILY #90 tabs 12/07/24 01/21/25 Rx PFSH Medical History Cellulitis of right knee ELAINE (generalized anxiety disorder) Acute maxillary sinusitis, unspecified COVID-19 Costochondritis Polycystic ovarian syndrome Chronic systolic (congestive) heart failure Postablative hypothyroidism Essential hypertension Mixed hyperlipidemia Dysmetabolic syndrome Multiple sclerosis LBBB (left bundle branch block) Takotsubo cardiomyopathy Surgical History History of discectomy Hx of breast reduction, elective History of mandibular surgery History (more content not included)... Normal [facility] MR/BMS.BPon 01-18-2025 MR/BMS.BP [facility] [address], [address] [place] [address] OFFICE VISIT Date of Service: 01/18/25 MR#: [id number] Acct: [id number] Name: ROMI RODRIGEZ Rep #: [id number] : 1985 Provider: Dr. Sahil Deleon se, DO Age/Sex: 39/F [place] [facility] Status: Signed Intake Vital Signs 07/22/24 15:47 01/18/25 16:12 Height 5 ft 9 in 5 ft 9 in BP Intake Visit Reasons: 6 M FU Allergies lisinopril Allergy (Verified 11/04/24 16:18) Angioedema adhesive tape Adverse Reaction (Unknown, Verified 11/04/24 16:18) Unknown bupropion (From Wellbutrin) Adverse Reaction (Unknown, Verified 11/04/24 16:18) made depression worse fluoxetine (From Prozac) Adverse Reaction (Unknown, Verified 11/04/24 16:18) made depression worse paroxetine (From Paxil) Adverse Reaction (Unknown, Verified 11/04/24 16:18) made depression worse sertraline (From Zoloft) Adverse Reaction (Unknown, Verified 11/04/24 16:18) made depression worse codeine Adverse Reaction (Verified 11/04/24 16:18) Nausea morphine Adverse Reaction (Verified 11/04/24 16:18) Nausea prednisone Adverse Reaction (Verified 11/04/24 16:18) heart racing, face redness [facility] Medical History Cellulitis of right knee ELAINE (generalized anxiety disorder) Acute maxillary sinusitis, unspecified COVID-19 Costochondritis Polycystic ovarian syndrome Chronic systolic (congestive) heart failure Postablative hypothyroidism Essential hypertension Mixed hyperlipidemia Dysmetabolic syndrome Multiple sclerosis LBBB (left bundle branch block) Takotsubo cardiomyopathy Surgical History History of discectomy Hx of breast reduction, elective History of mandibular surgery History of arthroscopy of knee History of ankle surgery Family History Father Sudden cardiac , Onset Age: 60 Myocardial infarction, Onset Age: 60 Mother Diabetes History of aortic valve replacement with bioprosthetic valve Grandmother CVA (cerebral vascular accident) Atrial fibrillation Grandfather Colon cancer Cancer brain Social History (Updated 07/22/24 @ 15:52 by Monica Patricio) household members: spouse and family Smoking Status: Never smoker alcohol intake: current alcohol intake frequency: holidays/special occasions only substance use type: does not use caffeine: Yes Type: coffee Number of servings: 1 what type of physical activity do you participate in: walking and swimming frequency: 1-2 times per week HPI History of Present Illness History provided by: patient HPI: Romi Rodrigez is a 39 year old female who presents today for follow up evaluation. Patient reports that she has been great. Patient reports that things have been going largely well without any significant concerns at this time. Has lost nearly 40 lbs since starting on . Recently took a trip to [facility] to visit a [employer] site which she states gave her a large sense of peace. Denies SI/HI or AVH. Review of Systems Constitutional Denies: fever(s), chills, change in weight or fatigue Eyes Denies: change in vision or blurry vision Ears, Nose, Mouth, Throat Denies: throat pain, neck pain or change in hearing Cardiovascular Denies: chest pain, palpitations or dyspnea Respiratory Denies: dyspnea, cough or wheezing Gastrointestinal Denies: abdominal pain, nausea, vomiting, diarrhea or constipation Genitourinary Denies: dysuria or urinary frequency Musculoskeletal Reports: back pain; Denies: neck pain, joint pain or muscle weakness Integumentary/Breast Denies: rash or new lesions Neurological Denies: headache(s), dizziness or confusion Endocrine Denies: fatigue or excessive sweating Hematologic/Lymphatic Denies: easy bruising or easy bleeding Allergic/Immunologic Denies: wheezing Exam Mental Status Exam - Psych Appearance casually dressed and no apparent distress Attitude cooperative and calm Activity/Motor Behavior MSE activity/motor behavior finding no adventitious movements Speech regular rate, regular volume and regular prosody Mood euythmic Affect congruent Thought Process linear, logical and coherent Thought Content no delusions and no hallucinations Suicidal Ideation none Homicidal Ideation none Attention intact Concentration intact Sensorium/Orientation awake, alert and oriented x3 Memory/Cognition other (appropriate for stated age) Insight good Judgement good Assessment Plan Assessment Plan (1) ELAINE (generalized anxiety disorder): Plan: - Consider PTSD and MDD, however largely stable otherwise - continue lexapro 20 mg every day for mood - Continue in therapy - Continue with buspar and klono (more content not included)... Normal [facility] CNOVon 11-26-2024 CNOV Office Visit (OBGYWM ) HERVE RODRIGEZDHARMESH Wells ([id number]) 1985 F Date Time Provider Department 11/26/24 7:00 AM KADY SOL During your visit today, we recorded the following information about you: Blood pressure Weight 122/70 125.2 kg Kady Sol APRN.PSYCHIATRY PHYSICIAN 11/26/2024 9:15 AM Signed Patient declined duct layer helperRocio Ho is a 39 year old who presents for an annual gynecologic exam without complaints. Menses: cycles every 3 months and 3 days of flow Spotting at times since losing weight with semaglutide - does not need to wear protection Period symptoms: lower back pain Contraception: oral contraceptives HPV vaccine: No Last Pap: 03/01/2023 normal HPV: 03/01/2023 neg History of abnormal pap: Yes, 2017 ASCUS, HPV positive 01/2018 [place] benign Last mammogram: 03/[address] [facility] Abnormal mammogram: fibroadenoma of right breast 2012 Sexually active: Yes History of STDS: HPV Patient concerns for STD exposure: No. Time with current partner: 14 years Number of lifetime partners: 4 Pain with intercourse: No Postcoital bleeding: No Documentation from previous visit of 03/01/2023 was copied and pasted, documentation has been reviewed and edited as necessary for today's visit. 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 History LMP: 11/01/2024 (Approximate), Having periods Age at Menarche: 9 Age at First : Age at Menopause: Fretted Instruments Inspector History Comments: Sexual Activity: Yes; Male Contraception: Pill Menstrual Tracking History Flowsheet Row Appointment from 11/26/2024 in OB/Gynecology Menstrual Flow Light PAST MEDICAL HISTORY Diagnosis Date Cardiomyopathy (HCC) 01/2008 apical balloon syndrome broken heart disease stress reaction to losing her father Chronic systolic heart failure (HCC) Chronic systolic heart failure (HCC) Depression 07/18/2016 Dysmetabolic syndrome 03/14/2016 Essential hypertension 08/16/2017 Family history of pancreatic cancer 06/05/2019 Mother 2019 age 65 Generalized anxiety disorder 03/14/2016 GERD without esophagitis 09/27/2021 History of 2019 novel coronavirus disease (COVID-19) 10/12/2020 10/10/2020 LBBB (left bundle branch block) 03/14/2016 Lumbar disc herniation with radiculopathy 08/14/2016 Had microdiscectomy 2017 Migraine with aura and without status migrainosus, not intractable Has not had since her teen's Mixed hyperlipidemia 03/14/2016 Multiple sclerosis ([facility]) 12/16/[address] Downing-Santos Neuro Muscle spasm 12/16/2019 Related to MS. On Clonopin Obesity, Class II, BMI 35-39.9 08/15/2022 Obesity, Class III, BMI 40-49.9 (morbid obesity) ([facility]) 08/15/2022 PCOS (polycystic ovarian syndrome) 03/14/2016 PMH - PAST MEDICAL HISTORY OF radioactive iiodine Postprocedural hypothyroidism 04/23/2003 Seasonal allergies 07/26/2021 Takotsubo cardiomyopathy 03/14/[address] Trevino PAST SURGICAL HISTORY Procedure Laterality Date 2D ECHO (EXEP) 06/21/2020 EF=40%, mild syst dysf 2D ECHO (EXEP) 04/12/2021 EF=45%, mild syst dysf, trival ND, TI 2D ECHO (EXEP) 08/08/2021 EF=45%, no significant valve disease ANKLE ARTHROSCOPY/SURGERY Right ECHO LVEF 37% ECHOCARDIOGRAM 05/29/2017 LEXISCAN STRESS TEST 06/21/2020 EF=41% , changes consistent with previous ND, no new reversible ischemic areas. PAST SURGICAL HISTORY OF arthroscopic knee surgery on right PAST SURGICAL HISTORY OF reconstructive to right leg for dog bite PAST SURGICAL HISTORY OF TMJ surgery which helped head pain. PAST SURGICAL HISTORY OF Jaw arthroscopy/surgery PAST SURGICAL HISTORY OF 2013 breast reduction PAST SURGICAL HISTORY OF 01/15/2017 micodiscectomy L4-L5 PAST SURGICAL HISTORY OF Bilateral 12/2018 Lasik surgery FAMILY HISTORY Problem Relation Age of Onset other (diabetes mellitus) Mother other (pancreatic cancer) Mother 65 Coronary Artery Disease Father from [place] age 60 other (Sudden ) Father other (ovarian cyst) Sister oophorectomy other (endometriosis) Sister other (post concussion syndrome) Sister COPD Maternal Grandmother other (atrial fibrillation) Maternal Grandmother other (strokes) Maternal Grandmother other (brain tumor) Other Miscarriages / Stillbirths Other other (multiple sclerosis) Other mothers cousin with MS SOCIAL HISTORY Social History Tobacco Use Smoking status: Never Smokeless tobacco: Never Vaping Use Vaping status: Never Used Substance Use Topics Alcohol use: Yes Comment: seldom Drug use: No REVIEW OF SYSTEMS Abdomen: No abdominal pain, nausea, vomiting, diarrhea, or constipation. No bloating, early satiety, indigestion, or increased flatulence. Bladder: No dysuria, gross hematuria, urinary frequency, urinary urgency, or incontinence. Breast: No breast lumps, nipple d/c, overlying skin changes (more content not included)... Normal [facility] CNOVon 11-21-2024 CNOV Office Visit (FAMPWS ) ROMI RODRIGEZ ([id number]) 1985 F Date Time Provider Department 11/21/24 9:40 AM ISAEL FISH FAMPWS During your visit today, we recorded the following information about you: Temperature Pulse Respiration Blood pressure 97.5 degrees 27/minute 16/minute 110/68 Weight Last Period 125.6 kg 11/01/24 Isael Fish MD 11/22/2024 6:15 PM Signed Chief Complaint Patient presents with: 6 Month Exam HPI Romi Rodrigez is a 39 year old female who presents here today for 6 month . Patient with Hx of HTN, general anxiety, depression, hypothyroidism, hyperlipidemia, Migraines, systolic CHF, Takotsubo cardiopathy, GERD, MS as well as those reviewed and addressed below. Patient has been doing ok. No new issus or concerns. Patient says she has been doing great. Patient started on Semiglutide through a weight loss jasvir with a physician. Two weeks ago had nasal congestion, mild headache, fever and tested positive for Influenza A on and was treated with tamiflu and if needed a z-eddie since she was going to [facility]. Patient has been having pain in her ears since the flight on the right and had noticed some crusted blood after landing. No fevers or chills since she has been back and no further drainage from the ear. It is sensitive to touch. Still has nasal drainage but it is now clear. Past medical history, appointments, medications, allergies reviewed. Previous Medical History PAST MEDICAL HISTORY Diagnosis Date Cardiomyopathy (HCC) 01/2008 apical balloon syndrome broken heart disease stress reaction to losing her father Chronic systolic heart failure (HCC) Chronic systolic heart failure (HCC) Depression 07/18/2016 Dysmetabolic syndrome 03/14/2016 Essential hypertension 08/16/2017 Family history of pancreatic cancer 06/05/2019 Mother 2019 age 65 Generalized anxiety disorder 03/14/2016 GERD without esophagitis 09/27/2021 History of 2019 novel coronavirus disease (COVID-19) 10/12/2020 10/10/2020 LBBB (left bundle branch block) 03/14/2016 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 Mason Neuro Muscle spasm 12/16/2019 Related to MS. On Clonopin Obesity, Class II, BMI 35-39.9 08/15/2022 Obesity, Class III, BMI 40-49.9 (morbid obesity) ([facility]) 08/15/2022 PCOS (polycystic ovarian syndrome) 03/14/2016 PMH - PAST MEDICAL HISTORY OF radioactive iiodine Postprocedural hypothyroidism 04/23/2003 Seasonal allergies 07/26/2021 Takotsubo cardiomyopathy 03/14/[address] Trevino Previous Surgical History PAST SURGICAL HISTORY Procedure Laterality Date 2D ECHO (EXEP) 06/21/2020 EF=40%, mild syst dysf 2D ECHO (EXEP) 04/12/2021 EF=45%, mild syst dysf, trival ND, TI 2D ECHO (EXEP) 08/08/2021 EF=45%, no significant valve disease ANKLE ARTHROSCOPY/SURGERY Right ECHO LVEF 37% ECHOCARDIOGRAM 05/29/2017 LEXISCAN STRESS TEST 06/21/2020 EF=41% , changes consistent with previous ND, no new reversible ischemic areas. PAST SURGICAL HISTORY OF arthroscopic knee surgery on right PAST SURGICAL HISTORY OF reconstructive to right leg for dog bite PAST SURGICAL HISTORY OF TMJ surgery which helped head pain. PAST SURGICAL HISTORY OF Jaw arthroscopy/surgery PAST SURGICAL HISTORY OF 2013 breast reduction PAST SURGICAL HISTORY OF 01/15/2017 micodiscectomy L4-L5 PAST SURGICAL HISTORY OF Bilateral 12/2018 Lasik surgery Family History FAMILY HISTORY Problem Relation Age of Onset other (diabetes mellitus) Mother other (pancreatic cancer) Mother 65 Coronary Artery Disease Father from [place] age 60 other (Sudden ) Father other (ovarian cyst) Sister oophorectomy other (endometriosis) Sister other (post concussion syndrome) Sister COPD Maternal Grandmother other (atrial fibrillation) Maternal Grandmother other (strokes) Maternal Grandmother other (brain tumor) Other Miscarriages / Stillbirths Other other (multiple sclerosis) Other mothers cousin with MS Patient Allergies ALLERGIES Allergen Reactions Michelle [Fexofenadi* Hives Lidocaine Rash, Hives Lisinopril Swelling Angio edema Buspar [Buspirone H* Other: See Comments Lack of efficacy. Codeine Intolerance, GI Upset Morphine Vomiting extreme nausea and vomiting Paxil [Paroxetine H* Other: See Comments Made depression worse Prednisone Other: See Comments heart racing and face was beet red. Prozac [Fluoxetine * Other: See Comments Made depression worse Seroquel [Quetiapin* Other: See Comments Zero sex drive Tape [Adhesive Tape* Unknown Wellbutrin [Bupropi* Other: See Comments Made depression worse Zoloft [Sertralin (more content not included)... Normal [facility] Lipid Profileon 11-04-2024 Cholesterol [Mass/Vol] 181 mg/dL Normal 200 [facility] Comment on above: Result Comment: <200 mg/dL Desirable 200-240 mg/dL Borderline >240 mg/dL High Risk Performed By: #### L 500.4100, L501.9520 #### [facility] [address] [place], [address] Cholesterol in HDL [Mass/Vol] 69 mg/dL Normal [facility] Comment on above: Result Comment: The drugs N-Acetylcysteine and Metamizole may falsely depress this assay. Reference Range HDL <40 mg/dL Low HDL Cholesterol HDL >or= 60 mg/dL High HDL Cholesterol Performed By: #### L 500.4100, L5.9520 #### [facility] [address] [place], [address] Cholesterol in LDL [Mass/Vol] 82 mg/dL Normal 0-130 [facility] Comment on above: Performed By: #### L 500.4100, [id number] #### [facility] [address] [place], [address] Cholesterol in VLDL [Mass/Vol] 30 mg/dL Normal 5-40 [facility] Comment on above: Performed By: #### L 500.4100, [id number] #### [facility] [address] [place], [address] Triglyceride [Mass/Vol] 152 mg/dL Normal [facility] Comment on above: Result Comment: The drugs N-Acetylcysteine and Metamizole may falsely depress this assay. Serum Triglycerides Reference Interval Normal <150 mg/dL Borderline high 150 - 199 mg/dL High 200 - 499 mg/dL Very High > or = 500 mg/dL Performed By: #### L 500.4100, [id number] #### [facility] [address] [place], [address] Office Visit Reporton 2024 Office Visit Report [facility] [address] [place] [address] OFFICE VISIT Date of Service: 11/04/24 MR#: [id number] Acct: [id number] Patient: ROMI RODRIGEZ Rep #: [id number] : 1985 Provider: BRY Ellison Age/Sex: 39/F [place] [facility] Status: Signed Employer Purchased Covid Test Note: Patient here today for Covid Testing, requested by their Employer. Assessment and Plan Assessment and Plan Orders: Orders POC Cepheid Covid, FluAB, RSV Today 11/16/24 0645 Date Sahil Narvaezignsherrie Signature: Date (if applicable) CC: Normal [facility] Thyroid Stim Hormone (TSH)on 11-04-2024 TSH 0.952 uIU/mL Normal 0.358-3.740 [facility] Comment on above: Performed By: #### L 500.4100, L501.9520 #### [facility] [address] [place], [address] Urgent Care Visit Reporton 0 11-04-2024 Urgent Care Visit Report [facility] [address], [address] [place] [address] OFFICE VISIT Date of Service: 11/04/24 MR#: [id number] Acct: [id number] Name: ROMI RODRIGEZ Rep #: [id number] : 1985 Provider: BRY Ellison Age/Sex: 39/F [place] [facility] Status: Signed Intake Vital Signs 07/22/24 15:47 11/04/24 16:18 Height 5 ft 9 in BP 111/78 130/66 H Blood Pressure Location Rt brachial Rt brachial Position Sitting Sitting Respiration 16 Pulse 85 82 Pulse Source Monitor NIBP Temp 98.3 F Temp Source Oral Pulse Oximetry (%) 99 Oxygen Delivery Method room air Intake Visit Reasons: SINUS COMP/COUGH/BILAT EAR COMP Chief Complaint: cough, ST, chest/nasal congest, right ear Diffuser Operator Required: No Is patient in pain?: Yes Allergies lisinopril Allergy (Verified 11/04/24 16:18) Angioedema adhesive tape Adverse Reaction (Unknown, Verified 11/04/24 16:18) Unknown bupropion (From Wellbutrin) Adverse Reaction (Unknown, Verified 11/04/24 16:18) made depression worse fluoxetine (From Prozac) Adverse Reaction (Unknown, Verified 11/04/24 16:18) made depression worse paroxetine (From Paxil) Adverse Reaction (Unknown, Verified 11/04/24 16:18) made depression worse sertraline (From Zoloft) Adverse Reaction (Unknown, Verified 11/04/24 16:18) made depression worse codeine Adverse Reaction (Verified 11/04/24 16:18) Nausea morphine Adverse Reaction (Verified 11/04/24 16:18) Nausea prednisone Adverse Reaction (Verified 11/04/24 16:18) heart racing, face redness Is last menstrual period known: No Post menopausal: No Patient : No Have you fallen in the past year?: No Nurse's Note: cough, ST, chest/nasal congest, right ear x 48 hours. leaving the country in 2 days, concerned this will worsen while gone. denies fever [facility] Medical History Cellulitis of right knee ELAINE (generalized anxiety disorder) Acute maxillary sinusitis, unspecified COVID-19 Costochondritis Polycystic ovarian syndrome Chronic systolic (congestive) heart failure Postablative hypothyroidism Essential hypertension Mixed hyperlipidemia Dysmetabolic syndrome Multiple sclerosis LBBB (left bundle branch block) Takotsubo cardiomyopathy Surgical History History of discectomy Hx of breast reduction, elective History of mandibular surgery History of arthroscopy of knee History of ankle surgery Family History Father Sudden cardiac , Onset Age: 60 Myocardial infarction, Onset Age: 60 Mother Diabetes History of aortic valve replacement with bioprosthetic valve Grandmother CVA (cerebral vascular accident) Atrial fibrillation Grandfather Colon cancer Cancer brain Social History (Updated 07/22/24 @ 15:52 by Monica Patricio) household members: spouse and family Smoking Status: Never smoker alcohol intake: current alcohol intake frequency: holidays/special occasions only substance use type: does not use caffeine: Yes Type: coffee Number of servings: 1 what type of physical activity do you participate in: walking and swimming frequency: 1-2 times per week HPI HPI Chief Complaint: cough, ST, chest/nasal congest, right ear Details: ROMI RODIRGEZ, is a 39 F who presents to the office today for initial evaluation in the [facility] for approximately 48-hour history of persistent fever, chills, cough, RAYMOND, myalgias, fatigue.??? No complaints of chest pain or shortness of breath or dyspnea on exertion. Nonsmoker. Several close contacts recently diagnosed with similar URI complaints. No over the counter taken to assist. No other associated symptoms and no other alleviating/aggravating factors. ROS Const Constitutional: No other (As above) Exam Const General: cooperative, healthy appearing and no acute distress Orientation: alert, awake and oriented x3 HENMT Head: normal to inspection Ears: hearing grossly normal bilaterally, external ears normal, TM's normal bilaterally and EAC's normal Nose: external nose normal, nares normal, septum normal and clear nasal discharge Face and sinus: normal facial exam, sinuses nontender and face symmetric Mouth: oral mucosae normal, lip normal, tongue normal and oropharynx normal Throat: posterior oropharynx normal, tonsils normal, uvula midline and no postnasal drainage Eyes General: appearance normal, both eyes and all related structures Neck Neck: normal visual inspection, full ROM, no lymphadenopathy, no meningeal signs and supple Neck mass: No Thyroid: thyroid normal Lymphatic: no lymphadenopathy noted Chest Chest palpation inspection: normal inspection of the chest Resp Effort Inspection: (more content not included)... Normal [facility] 09-01-2024 [facility] Telephone ([facility]) RODRIGEZROMI AGUIRRE ([id number]) 1985 F Date Time Provider Department 09/01/24 ELDER CHAO During your visit today, we recorded the following information about you: Sal Banks 09/01/2024 9:04 AM Signed tried calling patient to get her scheduled for a follow up but patients refused appointment Allergies As of Date: 09/01/2024 Noted Allergy Reaction MICHELLE (FEXOFENADINE) 06/05/2019 4 - Hives LIDOCAINE 02/08/2016 2 - Rash 4 - Hives LISINOPRIL 03/05/2014 7 - Swelling Comments: Angio edema BUSPAR (BUSPIRONE HCL) 08/16/2017 14 - Other: See Comments Comments: Lack of efficacy. CODEINE 07/06/2002 5 - Intolerance 8 - GI Upset MORPHINE 06/18/2014 11 - Vomiting Comments: extreme nausea and vomiting PAXIL (PAROXETINE HCL) 07/18/2016 14 - Other: See Comments Comments: Made depression worse PREDNISONE 01/14/2015 14 - Other: See Comments Comments: heart racing and face was beet red. PROZAC (FLUOXETINE HCL) 07/18/2016 14 - Other: See Comments Comments: Made depression worse SEROQUEL (QUETIAPINE) 03/18/2024 14 - Other: See Comments Comments: Zero sex drive TAPE (ADHESIVE TAPE (ROSINS)) 02/08/2016 16 - Unknown WELLBUTRIN (BUPROPION HCL) 07/18/2016 14 - Other: See Comments Comments: Made depression worse ZOLOFT (SERTRALINE HCL) 07/18/2016 14 - Other: See Comments Comments: Made depression worse Date Reviewed: 03/18/2024 Reviewed by: Isael Fish MD - Fully Assessed Reason for Visit: Appointment [186] Cmt: tried calling patient to get her scheduled for a follow up but patients refused appointment Prescriptions as of 09/01/2024 - levothyroxine (LEVOXYL) 25 mcg tablet Take 1 tablet by mouth once daily. Along with your 200 mcg tab for a total of 225 mcg a day. Take on empty stomach. For Thyroid - losartan (COZAAR) 50 mg tablet Take 1 tablet by mouth once daily. - omeprazole (PRILOSEC) 40 mg capsule Take 1 capsule by mouth two times a day. - spironolactone (ALDACTONE) 100 mg tablet TAKE ONE TABLET ONCE PER DAY AT THE SAME TIME EVERY DAY - levothyroxine (SYNTHROID) 200 mcg tablet Take 1 tablet by mouth once daily. - Drospirenone-Ethinyl Estradiol 3-0.03 mg per tablet Take 1 tablet by mouth once daily. For continuous use. Take active pills only for 4 packs then one week of placebo pills. - clonazePAM (KLONOPIN) 0.5 mg tablet Take 1 tablet by mouth three times a day for 90 days. - scopolamine (TRANSDERM-SCOP) patch 1.5 mg/72 hr (delivers 1 mg over 3 days) Apply 1 Patch as directed every 72 hours. Apply patch to skin behind ear 4hrs prior to travel. - empagliflozin (JARDIANCE) 10 mg tablet Take 1 tablet by mouth once daily. Take 1 tablet once daily in the morning - montelukast (SINGULAIR) 10 mg tablet Take 1 tablet by mouth daily at bedtime. - dimethyl fumarate (TECFIDERA) [address] Take 1 capsule (240 mg) by mouth two times a day. - pregabalin (LYRICA) 50 mg capsule Take 1 capsule by mouth two times a day for 90 days. - escitalopram oxalate (LEXAPRO) 20 mg tablet Take 20 mg by mouth once daily. One tablet daily - meclizine (ANTIVERT) 12.5 mg tab Take 1 tablet by mouth three times daily as needed (dizziness). - carvedilol (COREG) 25 mg tablet Take 1 tablet by mouth twice daily. Per Cardio - fluticasone (FLONASE) 50 mcg/actuation nasal spray Use 2 Sprays in each nostril once daily. Rinse mouth after use. - Cetirizine 10 mg cap Take by mouth. - biotin 5 mg tab Take 5,000 mg by mouth once daily. - omega-3 fatty acids 1,000 mg cap Take 1,000 mg by mouth once daily. - Cholecalciferol, Vitamin D3, 1,000 unit cap Take 1,000 Units by mouth once daily. - pyridoxine hcl(VITAMIN B-6 100 MG TAB) One daily. - MULTI-VITAMIN TAB 1 tablet daily - CALCIUM 500 MG TAB 1 tablet daily Problem List As Of Date 09/01/2024 Noted Resolved Postprocedural hypothyroidism [E89.0] 04/23/2003 Multiple sclerosis (HCC) [G35] 12/16/2012 Mixed hyperlipidemia [E78.2] 03/14/2016 Generalized anxiety disorder [F41.1] 03/14/2016 Takotsubo cardiomyopathy [I51.81] 03/14/2016 PCOS (polycystic ovarian syndrome) [E28.2] 03/14/2016 Dysmetabolic syndrome [E88.810] 03/14/2016 Migraine with aura and without status migrainos* Encounter for gynecological examination without*03/14/2016 LBBB (left bundle branch block) [I44.7] 03/14/2016 Well adult exam [Z00.00] 03/14/2016 Chronic systolic heart failure (HCC) [I50.22] Chest pain [R07.9] 06/04/2018 Depression [F32.A] 07/18/2016 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 Normal [facility] MR/BMS.BPon 07-22-2024 MR/BMS.BP [address], [address] [place] [id number] OFFICE VISIT Date of Service: 07/22/24 MR#: [id number] Acct: [id number] Name: ROMI RODRIGEZ Rep #: [id number] : 1985 Provider: Dr. Sahil Deleon se, DO Age/Sex: 39/F Location: BMS.BP Status: Signed Intake Vital Signs 01/23/24 16:17 04/30/24 15:02 07/22/24 15:47 Height 5 ft 9 in 5 ft 9 in 5 ft 9 in BP 111/78 Blood Pressure Location Rt brachial Position Sitting Pulse 85 Pulse Source Monitor BP Intake Visit Reasons: 6 M FU Accompanied by: Self Is patient in pain?: Yes (low back) Pain scale (1-10): 3 Allergies lisinopril Allergy (Verified 07/22/24 15:49) Angioedema adhesive tape Adverse Reaction (Unknown, Verified 07/22/24 15:49) Unknown bupropion (From Wellbutrin) Adverse Reaction (Unknown, Verified 07/22/24 15:49) made depression worse fluoxetine (From Prozac) Adverse Reaction (Unknown, Verified 07/22/24 15:49) made depression worse paroxetine (From Paxil) Adverse Reaction (Unknown, Verified 07/22/24 15:49) made depression worse sertraline (From Zoloft) Adverse Reaction (Unknown, Verified 07/22/24 15:49) made depression worse codeine Adverse Reaction (Verified 07/22/24 15:49) Nausea morphine Adverse Reaction (Verified 07/22/24 15:49) Nausea prednisone Adverse Reaction (Verified 07/22/24 15:49) heart racing, face redness Medications ???Medication ???Instructions ???Recorded ???Confirmed ???Type cholecalciferol (vitamin D3) 25 1,000 unit PO DAILY 03/03/20 07/22/24 History mcg (1,000 unit) tablet multivitamin with iron 1 ea PO DAILY 03/03/20 07/22/24 History pyridoxine (vitamin B6) 25 mg 25 mg PO DAILY 03/03/20 07/22/24 History tablet spironolactone 100 mg tablet 100 mg PO DAILY 03/03/20 07/22/24 History biotin 5,000 mcg disintegrating 5,000 mcg PO DAILY 06/02/20 04/30/24 History tablet clonazepam 0.5 mg tablet 0.5 mg PO BID PRN Anxiety 06/02/20 07/22/24 History fluticasone propionate 50 2 spray intranasal DAILY PRN 06/02/20 07/22/24 History mcg/actuation nasal Allergies spray,suspension (Allergy Relief (fluticasone)) omega 3-dha 60 mg-epa 90 mg-fish 500 mg PO DAILY 10/13/20 07/22/24 History oil 500 mg capsule, delayed release dimethyl fumarate 240 mg 240 mg PO BID 03/30/21 07/22/24 History capsule,delayed release drospirenone 3 mg-ethinyl 1 tab PO DAILY 03/30/21 07/22/24 History estradiol 0.03 mg tablet baclofen 10 mg tablet 10 mg PO DAILY PRN 02/12/23 07/22/24 History levothyroxine 200 mcg tablet 200 mcg PO DAILY 02/12/23 07/22/24 History levothyroxine 25 mcg tablet 25 mcg PO DAILY 11/29/23 07/22/24 History meclizine 12.5 mg tablet 12.5 mg PO PRN 11/29/23 07/22/24 History omeprazole 40 mg capsule,delayed 40 mg PO DAILY 11/29/23 07/22/24 History release carvedilol 25 mg tablet 25 mg PO BID #180 tabs 01/24/24 07/22/24 Rx empagliflozin 10 mg tablet 10 mg PO DAILY #90 tabs 01/24/24 07/22/24 Rx (Jardiance) losartan 25 mg tablet 25 mg PO DAILY #90 tabs 01/24/24 07/22/24 Rx escitalopram oxalate 20 mg tablet 20 mg PO DAILY #90 tabs 07/21/24 07/22/24 Rx pregabalin 50 mg capsule 100 mg PO BID 07/22/24 07/22/24 History PFSH Medical History Cellulitis of right knee ELAINE (generalized anxiety disorder) Acute maxillary sinusitis, unspecified COVID-19 Costochondritis Polycystic ovarian syndrome Chronic systolic (congestive) heart failure Postablative hypothyroidism Essential hypertension Mixed hyperlipidemia Dysmetabolic syndrome Multiple sclerosis LBBB (left bundle branch block) Takotsubo cardiomyopathy Surgical History History of discectomy Hx of breast reduction, elective History of mandibular surgery History of arthroscopy of knee History of ankle surgery Family History Father Sudden cardiac , Onset Age: 60 Myocardial infarction, Onset Age: 60 Mother Diabetes History of aortic valve replacement with bioprosthetic valve Grandmother CVA (cerebral vascular accident) Atrial fibrillation Grandfather Colon cancer Cancer brain Social History (Updated 07/22/24 @ 15:52 by Monica Patricio) household members: spouse and family Smoking Status: Never smoker alcohol intake: current alcohol intake frequency: holidays/special occasions only substance use type: does not use caffeine: Yes Type: coffee Number of servings: 1 what type of physical activity do you participate in: walking and swimming frequency: 1-2 times per week HPI History of Present Illness History provided by: patient HPI: Romi Rodrigez is a 39 year old female who presents today for follow up evaluation. Patient reports that she (more content not included)... Normal [facility] Urgent Care Visit Reporton 0 06-22-2024 Urgent Care Visit Report [facility] [address], [address] [place] [address] OFFICE VISIT Date of Service: 06/22/24 MR#: [id number] Acct: [id number] Name: ROMI RODRIGEZ Rep #: [id number] : 1985 Provider: BRY Ellison Age/Sex: 38/F [place] [facility] Status: Signed Intake Vital Signs 04/30/24 15:02 06/22/24 15:41 Height 5 ft 9 in Weight: 270 lb BMI 39.9 BP 124/82 H Blood Pressure Location Lt brachial Position Sitting Respiration 12 Pulse 87 Pulse Source Monitor Temp 97.2 F L Temp Source Temporal Pulse Oximetry (%) 98 Oxygen Delivery Method room air Intake Visit Reasons: R KNEE INJURY/CONCERN FOR INFECTION Chief Complaint: R knee cellulitis Allergies lisinopril Allergy (Verified 04/30/24 15:04) Angioedema adhesive tape Adverse Reaction (Unknown, Verified 04/30/24 15:04) Unknown bupropion (From Wellbutrin) Adverse Reaction (Unknown, Verified 04/30/24 15:04) made depression worse fluoxetine (From Prozac) Adverse Reaction (Unknown, Verified 04/30/24 15:04) made depression worse paroxetine (From Paxil) Adverse Reaction (Unknown, Verified 04/30/24 15:04) made depression worse sertraline (From Zoloft) Adverse Reaction (Unknown, Verified 04/30/24 15:04) made depression worse codeine Adverse Reaction (Verified 04/30/24 15:04) Nausea morphine Adverse Reaction (Verified 04/30/24 15:04) Nausea prednisone Adverse Reaction (Verified 04/30/24 15:04) heart racing, face redness PFS Medical History (Updated 06/22/24 @ 16:11 by Sahil Munoz PA, PA) Cellulitis of right knee ELAINE (generalized anxiety disorder) Acute maxillary sinusitis, unspecified COVID-19 Costochondritis Polycystic ovarian syndrome Chronic systolic (congestive) heart failure Postablative hypothyroidism Essential hypertension Mixed hyperlipidemia Dysmetabolic syndrome Multiple sclerosis LBBB (left bundle branch block) Takotsubo cardiomyopathy Surgical History History of discectomy Hx of breast reduction, elective History of mandibular surgery History of arthroscopy of knee History of ankle surgery Family History Father Sudden cardiac , Onset Age: 60 Myocardial infarction, Onset Age: 60 Mother Diabetes History of aortic valve replacement with bioprosthetic valve Grandmother CVA (cerebral vascular accident) Atrial fibrillation Grandfather Colon cancer Cancer brain Social History (Updated 04/30/24 @ 15:12 by Kristin Degroot MA) household members: spouse and family Smoking Status: Never smoker alcohol intake: current details: occasional substance use type: does not use caffeine: Yes Type: coffee Number of servings: 1 what type of physical activity do you participate in: walking and swimming frequency: 1-2 times per week HPI HPI Chief Complaint: R knee cellulitis Details: ROMI RODRIGEZ, is a 38 F who presents to the office today for initial evaluation status post abrasion suffered 5 days ago to the right knee anterior while tripping at home scraping the same. Patient notes performing wound care as appropriate but noticed her cat walked over the same open wound a couple of days ago and has developed increased erythema, warmth, swelling, tenderness to the same. No complaints of fever, chills, sweats. No [id number] products taken to assist, except the application of Vaseline. No other associated symptoms and no other alleviating/aggravating factors. ROS Const Constitutional: No other (As above) Exam Const General: cooperative, healthy appearing and no acute distress Orientation: alert and awake Resp Effort Inspection: normal respiratory effort and able to speak in complete sentences Cardio Rate: regular rate Pulses: radial pulses present Skin General: no rashes or lesions noted (except 5cm diameter abrasion w/ circumf. erythema/ warmth/ swelling) Neuro General: patient alert and patient awake Cognition: normal cognition Speech: speech normal Extrem General: normal to inspection Psych Appearance: grossly normal Mental Status: mental status grossly normal Mood: congruent mood Affect: normal affect Speech and Movement: speech and movement normal Attitude: cooperative Coding Level of Care Code Off vis,est,level 3 Diagnoses Cellulitis of right knee L03.115 Assessment and Plan Assessment and Plan (1) Cellulitis of right knee: Status: Acute Plan: Doxycycline as prescribed today. Daily wound care as instructed today. Supportive measures including Epsom salt soaks as instructed today. Follow-up with PCP in 3 to 5 days should symptoms not improve, sooner should symptoms only worsen or any other concerns develop. Patient stat (more content not included)... Normal [facility] L/S Spine Min 4 Viewson 04-07-2023 L/S Spine Min 4 Views [facility] [address] [place] [address] L/S Spine Min 4 Views MR#: [id number] Acct: [id number] Name: ROMI RODRIGEZ Rep #: [id number] : 1985 F 38 From: Surendra Márquez MD PCP: Dr. Isael Fish MD Status: REG CLI Study: L/S Spine Min 4 Views Date of Exam: 04/30/24 Exam# [id number] Ordering [place]: [place] [id number] STUDY: X-RAY - LUMBAR SPINE REASON FOR EXAM: Female, 38 years old. lbp -- Please do upright AP lateral flexion-extension TECHNIQUE: 4 view(s) of the lumbar spine were obtained. COMPARISON: None FINDINGS: Normal lumbar lordosis. Mild levoscoliosis centered at L3/L4. There is a normal alignment of the vertebrae. No subluxation on the flexion or extension views. Normal vertebral bodies and endplates. There is multi-level degenerative disc disease with multi-level disc space narrowing. There is multilevel facet hypertrophy. The soft tissue structures are unremarkable. RAD/L/S Spine Min 4 Views IMPRESSION: Mild levoscoliosis with degenerative disc disease. No instability. MRI may be useful for Electronically Signed: Surendra Márquez MD at 9:15 EDT , CC: Dr. Claus Montero MD; Dr. Isael Fish MD Breast Puller: Signed Normal [facility] Orthopedic Visit Reporton Orthopedic Visit Report [facility] [address] [place] [address] OFFICE VISIT Date of Service: 04/30/24 MR#: [id number] Acct: [id number] Name: ROMI RODRIGEZ Rep #: [id number] : 1985 Provider: Dr. Claus Montero MD Age/Sex: 38/F [place] [facility] Status: Signed Intake Vital Signs 01/23/24 16:17 03/30/24 12:36 04/30/24 15:02 Height 5 ft 9 in 5 ft 9 in 5 ft 9 in Weight: 270 lb BMI 39.9 Intake Visit Reasons: LUMBAR SPINE Accompanied by: Self Is patient in pain?: Yes (3-5) Pain scale (1-10): 5 Allergies lisinopril Allergy (Verified 04/30/24 15:04) Angioedema adhesive tape Adverse Reaction (Unknown, Verified 04/30/24 15:04) Unknown bupropion (From Wellbutrin) Adverse Reaction (Unknown, Verified 04/30/24 15:04) made depression worse fluoxetine (From Prozac) Adverse Reaction (Unknown, Verified 04/30/24 15:04) made depression worse paroxetine (From Paxil) Adverse Reaction (Unknown, Verified 04/30/24 15:04) made depression worse sertraline (From Zoloft) Adverse Reaction (Unknown, Verified 04/30/24 15:04) made depression worse codeine Adverse Reaction (Verified 04/30/24 15:04) Nausea morphine Adverse Reaction (Verified 04/30/24 15:04) Nausea prednisone Adverse Reaction (Verified 04/30/24 15:04) heart racing, face redness Medications ???Medication ???Instructions ???Recorded ???Confirmed ???Type cholecalciferol (vitamin D3) 25 1,000 unit PO DAILY 03/03/20 04/30/24 History mcg (1,000 unit) tablet multivitamin with iron 1 ea PO DAILY 03/03/20 04/30/24 History pyridoxine (vitamin B6) 25 mg 25 mg PO DAILY 03/03/20 04/30/24 History tablet spironolactone 100 mg tablet 100 mg PO DAILY 03/03/20 04/30/24 History biotin 5,000 mcg disintegrating 5,000 mcg PO DAILY 06/02/20 04/30/24 History tablet clonazepam 0.5 mg tablet 0.5 mg PO BID PRN Anxiety 06/02/20 04/30/24 History fluticasone propionate 50 2 spray intranasal DAILY PRN 06/02/20 04/30/24 History mcg/actuation nasal Allergies spray,suspension (Allergy Relief (fluticasone)) omega 3-dha 60 mg-epa 90 mg-fish 500 mg PO DAILY 10/13/20 04/30/24 History oil 500 mg capsule, delayed release dimethyl fumarate 240 mg 240 mg PO BID 03/30/21 04/30/24 History capsule,delayed release drospirenone 3 mg-ethinyl 1 tab PO DAILY 03/30/21 04/30/24 History estradiol 0.03 mg tablet buspirone 15 mg tablet 15 mg PO BID #90 tabs 11/14/22 04/30/24 Rx baclofen 10 mg tablet 10 mg PO DAILY PRN 02/12/23 04/30/24 History levothyroxine 200 mcg tablet 200 mcg PO DAILY 02/12/23 04/30/24 History pregabalin 25 mg capsule 25 mg PO BID PRN 02/12/23 04/30/24 History levothyroxine 25 mcg tablet 25 mcg PO DAILY 11/29/23 04/30/24 History meclizine 12.5 mg tablet 12.5 mg PO PRN 11/29/23 04/30/24 History omeprazole 40 mg capsule,delayed 40 mg PO DAILY 11/29/23 04/30/24 History release carvedilol 25 mg tablet 25 mg PO BID #180 tabs 01/24/24 04/30/24 Rx empagliflozin 10 mg tablet 10 mg PO DAILY #90 tabs 01/24/24 04/30/24 Rx (Jardiance) losartan 25 mg tablet 25 mg PO DAILY #90 tabs 01/24/24 04/30/24 Rx azithromycin 250 mg tablet See Rx Instructions PO .COMPLEX #6 01/25/24 04/30/24 Rx tabs benzonatate 100 mg capsule 100 mg PO TID #10 caps 01/25/24 04/30/24 Rx escitalopram oxalate 20 mg tablet 20 mg PO DAILY #90 tabs 01/27/24 04/30/24 Rx PFSH Medical History ELAINE (generalized anxiety disorder) Acute maxillary sinusitis, unspecified COVID-19 Costochondritis Polycystic ovarian syndrome Chronic systolic (congestive) heart failure Postablative hypothyroidism Essential hypertension Mixed hyperlipidemia Dysmetabolic syndrome Multiple sclerosis LBBB (left bundle branch block) Takotsubo cardiomyopathy Surgical History History of discectomy Hx of breast reduction, elective History of mandibular surgery History of arthroscopy of knee History of ankle surgery Family History Father Sudden cardiac , Onset Age: 60 Myocardial infarction, Onset Age: 60 Mother Diabetes History of aortic valve replacement with bioprosthetic valve Grandmother CVA (cerebral vascular accident) Atrial fibrillation Grandfather Colon cancer Cancer brain Social History (Updated 04/30/24 @ 15:12 by Kristin Degroot MA) household members: spouse and family Smoking Status: Never smoker alcohol intake: current details: occasional substance use type: does not use caffeine: Yes Type: coffee Number of servings: 1 what type of physical activity do you participate in: walking and swimming frequency: 1-2 times per week HPI LUMBAR SPINE Details: Th (more content not included)... [facility] ROMI RODRIGEZ ([id number]) 1985 F Date Time Provider Department 04/21/24 [facility] During your visit today, we recorded the following information about you: Marina Davila LPN 04/21/2024 11:43 AM Signed Received results of pt's EMG/NCS ordered by pcp. See below. Marina Davila LPN Scan on 04/21/2024 10:16 AM by Provider, VITALIY Vela: Neurology Isael Fish MD 04/21/2024 4:29 PM Signed Let patient know the nerve studies shows: So some of this may be from her back or a compression of the nerves in the anterior thigh area. Options are: 1) discuss with her neurologist and we can provider her a copy of the report. 2) see a pain management provider 3) see a home health billing specialist ( not sure who did her surgery) Evelina Peter MA 04/22/2024 9:54 AM Addendum Patient notified and voiced understanding. Evelina Peter MA Patient does feel it is coming from her back. Her Surgeon was Dr. Jose MARTIN. She also has an appointment with Dr. Montero at [facility]. HUNTER Yarbrough Jeffrey A, MD 04/22/2024 1:02 PM Signed Please fax EMG reports to DR. Montero at [place] and let patient know we did this. Evelina Peter MA 04/22/2024 1:24 PM Signed Patient notified and faxed to Dr. Montero. Evelina Peter MA Allergies As of Date: 04/21/2024 Noted Allergy Reaction MICHELLE (FEXOFENADINE) 06/05/2019 4 - Hives LIDOCAINE 02/08/2016 2 - Rash 4 - Hives LISINOPRIL 03/05/2014 7 - Swelling Comments: Angio edema BUSPAR (BUSPIRONE HCL) 08/16/2017 14 - Other: See Comments Comments: Lack of efficacy. CODEINE 07/06/2002 5 - Intolerance 8 - GI Upset MORPHINE 06/18/2014 11 - Vomiting Comments: extreme nausea and vomiting PAXIL (PAROXETINE HCL) 07/18/2016 14 - Other: See Comments Comments: Made depression worse PREDNISONE 01/14/2015 14 - Other: See Comments Comments: heart racing and face was beet red. PROZAC (FLUOXETINE HCL) 07/18/2016 14 - Other: See Comments Comments: Made depression worse SEROQUEL (QUETIAPINE) 03/18/2024 14 - Other: See Comments Comments: Zero sex drive TAPE (ADHESIVE TAPE (ROSINS)) 02/08/2016 16 - Unknown WELLBUTRIN (BUPROPION HCL) 07/18/2016 14 - Other: See Comments Comments: Made depression worse ZOLOFT (SERTRALINE HCL) 07/18/2016 14 - Other: See Comments Comments: Made depression worse Date Reviewed: 03/18/2024 Reviewed by: Isael Fish MD - Fully Assessed Reason for Visit: Results [95] Cmt: EMG/NCS Prescriptions as of 04/22/2024 - levothyroxine (LEVOXYL) 25 mcg tablet Take 1 tablet by mouth once daily. Along with your 200 mcg tab for a total of 225 mcg a day. Take on empty stomach. For Thyroid - losartan (COZAAR) 50 mg tablet Take 1 tablet by mouth once daily. - omeprazole (PRILOSEC) 40 mg capsule Take 1 capsule by mouth two times a day. - spironolactone (ALDACTONE) 100 mg tablet TAKE ONE TABLET ONCE PER DAY AT THE SAME TIME EVERY DAY - empagliflozin (JARDIANCE) 10 mg tablet Take 1 tablet by mouth once daily. Take 1 tablet once daily in the morning - clonazePAM (KLONOPIN) 0.5 mg tablet Take 1 tablet by mouth three times a day for 90 days. - levothyroxine (SYNTHROID) 200 mcg tablet Take 1 tablet by mouth once daily. - montelukast (SINGULAIR) 10 mg tablet Take 1 tablet by mouth daily at bedtime. - dimethyl fumarate (TECFIDERA) [address] Take 1 capsule (240 mg) by mouth two times a day. - baclofen 10 mg tablet Take 1 tablet by mouth once daily as needed. - pregabalin (LYRICA) 50 mg capsule Take 1 capsule by mouth two times a day for 90 days. - Drospirenone-Ethinyl Estradiol 3-0.03 mg per tablet Take 1 tablet by mouth once daily. For continuous use. Take active pills only for 4 packs then one week of placebo pills. - escitalopram oxalate (LEXAPRO) 20 mg tablet Take 20 mg by mouth once daily. One tablet daily - meclizine (ANTIVERT) 12.5 mg tab Take 1 tablet by mouth three times daily as needed (dizziness). - carvedilol (COREG) 25 mg tablet Take 1 tablet by mouth twice daily. Per Cardio - fluticasone (FLONASE) 50 mcg/actuation nasal spray Use 2 Sprays in each nostril once daily. Rinse mouth after use. - Cetirizine 10 mg cap Take by mouth. - biotin 5 mg tab Take 5,000 mg by mouth once daily. - omega-3 fatty acids 1,000 mg cap Take 1,000 mg by mouth once daily. - Cholecalciferol, Vitamin D3, 1,000 unit cap Take 1,000 Units by mouth once daily. - pyridoxine hcl(VITAMIN B-6 100 MG TAB) One daily. - MULTI-VITAMIN TAB 1 tablet daily - CALCIUM 500 MG TAB 1 tablet daily Problem List As Of Date 04/21/2024 Noted Resolved Postprocedural hypothyroidism [E89.0] 04/23/2003 Multiple sclerosis (HCC) [G35] 12/16/2012 Mixed hyperlipidemia [E78.2] 03/14/2016 Generalized anxiety disorder [F41.1] 03/14/2016 Takotsubo cardiomyopathy [I51.81] 03/14/2016 PCOS (polycystic ovarian syndr (more content not included)... Normal [facility] NCS and/or EMG Patienton NCS and/or EMG Patient [facility]monary Services/Neurology [address] [place] [address] MR#: [id number] Acct: [id number] Name: ROMI RODRIGEZ Rep #: [id number] : 1985 38 From: Brannon Andrade MD Referring Dr: Isael Fish MD Status: REG CLI Location: PSN Date: 04/21/24 Sex: F C NCS and/or EMG Patient Report Ordering Doctor: Isael Fish DATE OF SERVICE: 04/21/24 Clinical Summary: 38 year old female with history of lumbar spine surgery and Multiple Sclerosis with symptoms of numbness, tingling, and pain in the lower extremities - in particular, in the lateral thigh of the right lower extremity and diffusely in the left lower extremity.. Nerve Conduction Studies Summary: The right peroneal-EDB CMAP amplitudes are reduced diffusely. The right peroneal motor conduction velocity is reduced at the fibular head. Needle Examination Summary: Needle examination of the bilateral lower extremities demonstrated a higher proportion of motor unit action potentials with increased amplitude and increased duration in the left vastus lateralis, tibialis anterior, and peroneus longus muscles. Impression: Chronic neurogenic changes were seen in the left vastus lateralis, tibialis anterior, and peroneus longus muscles, which are suggestive of a mild, chronic left L4-L5 polyradiculopathy. Comment: Meralgia Paresthetica should be considered as a possible cause of the patient's symptoms of right/left lateral thigh numbness. Clinical correlation is advised. Multi Select Codes Neurology Neurology Interp Codes: 56828-75 Musc test done w/n test comp (interp) (2) and 27520-12 Nrv cndj test 9-10 studies (interp) 04/21/24 1012 Date Brannon Andrade MD CC: Dr. Brannon Andrade MD; Dr. Isael Fish MD Date Dictated: 04/21/24910 Date Transcribed: 04/21/24910 Breast Puller: Signed [facility] 03-26-2024 [facility] Telephone (FAMPWS) ROMI RODRIGEZ ([id number]) 1985 F Date Time Provider Department 03/26/24 ISAEL FISH During your visit today, we recorded the following information about you: Marina Davila LPN 03/26/2024 7:31 AM Signed Received lab results ordered by pcp. Marina Davila LPN Scan on 03/25/2024 5:35 PM by Provider, VITALIY Vela: Miscellaneous Lab Allergies As of Date: 03/26/2024 Noted Allergy Reaction MICHELLE (FEXOFENADINE) 06/05/2019 4 - Hives LIDOCAINE 02/08/2016 2 - Rash 4 - Hives LISINOPRIL 03/05/2014 7 - Swelling Comments: Angio edema BUSPAR (BUSPIRONE HCL) 08/16/2017 14 - Other: See Comments Comments: Lack of efficacy. CODEINE 07/06/2002 5 - Intolerance 8 - GI Upset MORPHINE 06/18/2014 11 - Vomiting Comments: extreme nausea and vomiting PAXIL (PAROXETINE HCL) 07/18/2016 14 - Other: See Comments Comments: Made depression worse PREDNISONE 01/14/2015 14 - Other: See Comments Comments: heart racing and face was beet red. PROZAC (FLUOXETINE HCL) 07/18/2016 14 - Other: See Comments Comments: Made depression worse SEROQUEL (QUETIAPINE) 03/18/2024 14 - Other: See Comments Comments: Zero sex drive TAPE (ADHESIVE TAPE (ROSINS)) 02/08/2016 16 - Unknown WELLBUTRIN (BUPROPION HCL) 07/18/2016 14 - Other: See Comments Comments: Made depression worse ZOLOFT (SERTRALINE HCL) 07/18/2016 14 - Other: See Comments Comments: Made depression worse Date Reviewed: 03/18/2024 Reviewed by: Isael Fish MD - Fully Assessed Reason for Visit: Results [95] Prescriptions as of 03/26/2024 - levothyroxine (LEVOXYL) 25 mcg tablet Take 1 tablet by mouth once daily. Along with your 200 mcg tab for a total of 225 mcg a day. Take on empty stomach. For Thyroid - losartan (COZAAR) 50 mg tablet Take 1 tablet by mouth once daily. - omeprazole (PRILOSEC) 40 mg capsule Take 1 capsule by mouth two times a day. - spironolactone (ALDACTONE) 100 mg tablet TAKE ONE TABLET ONCE PER DAY AT THE SAME TIME EVERY DAY - empagliflozin (JARDIANCE) 10 mg tablet Take 1 tablet by mouth once daily. Take 1 tablet once daily in the morning - clonazePAM (KLONOPIN) 0.5 mg tablet Take 1 tablet by mouth three times a day for 90 days. - levothyroxine (SYNTHROID) 200 mcg tablet Take 1 tablet by mouth once daily. - montelukast (SINGULAIR) 10 mg tablet Take 1 tablet by mouth daily at bedtime. - dimethyl fumarate (TECFIDERA) [address] Take 1 capsule (240 mg) by mouth two times a day. - baclofen 10 mg tablet Take 1 tablet by mouth once daily as needed. - pregabalin (LYRICA) 50 mg capsule Take 1 capsule by mouth two times a day for 90 days. - Drospirenone-Ethinyl Estradiol 3-0.03 mg per tablet Take 1 tablet by mouth once daily. For continuous use. Take active pills only for 4 packs then one week of placebo pills. - escitalopram oxalate (LEXAPRO) 20 mg tablet Take 20 mg by mouth once daily. One tablet daily - meclizine (ANTIVERT) 12.5 mg tab Take 1 tablet by mouth three times daily as needed (dizziness). - carvedilol (COREG) 25 mg tablet Take 1 tablet by mouth twice daily. Per Cardio - fluticasone (FLONASE) 50 mcg/actuation nasal spray Use 2 Sprays in each nostril once daily. Rinse mouth after use. - Cetirizine 10 mg cap Take by mouth. - biotin 5 mg tab Take 5,000 mg by mouth once daily. - omega-3 fatty acids 1,000 mg cap Take 1,000 mg by mouth once daily. - Cholecalciferol, Vitamin D3, 1,000 unit cap Take 1,000 Units by mouth once daily. - pyridoxine hcl(VITAMIN B-6 100 MG TAB) One daily. - MULTI-VITAMIN TAB 1 tablet daily - CALCIUM 500 MG TAB 1 tablet daily Problem List As Of Date 03/26/2024 Noted Resolved Postprocedural hypothyroidism [E89.0] 04/23/2003 Multiple sclerosis (HCC) [G35] 12/16/2012 Mixed hyperlipidemia [E78.2] 03/14/2016 Generalized anxiety disorder [F41.1] 03/14/2016 Takotsubo cardiomyopathy [I51.81] 03/14/2016 PCOS (polycystic ovarian syndrome) [E28.2] 03/14/2016 Dysmetabolic syndrome [E88.810] 03/14/2016 Migraine with aura and without status migrainos* Encounter for gynecological examination without*03/14/2016 LBBB (left bundle branch block) [I44.7] 03/14/2016 Well adult exam [Z00.00] 03/14/2016 Chronic systolic heart failure (HCC) [I50.22] Chest pain [R07.9] 06/04/2018 Depression [F32.A] 07/18/2016 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 Normal [facility] 03-24-2024 [facility] Telephone (FAMPWS) ROMI RODRIGEZ ([id number]) 1985 F Date Time Provider Department 03/24/24 ISAEL FISH During your visit today, we recorded the following information about you: Marina Davila LPN 03/24/2024 1:59 PM Signed Received labs results from [facility] ordered by pcp. Marina Davila LPN Scan on 03/23/2024 12:10 PM by Provider, External, PA-C: Chemistry Isael Fish MD 03/24/2024 3:37 PM Signed Let patient know folate level was ok. Viviana Hill MA 03/24/2024 4:12 PM Signed Pt notified. Viviana Hill MA Allergies As of Date: 03/24/2024 Noted Allergy Reaction MICHELLE (FEXOFENADINE) 06/05/2019 4 - Hives LIDOCAINE 02/08/2016 2 - Rash 4 - Hives LISINOPRIL 03/05/2014 7 - Swelling Comments: Angio edema BUSPAR (BUSPIRONE HCL) 08/16/2017 14 - Other: See Comments Comments: Lack of efficacy. CODEINE 07/06/2002 5 - Intolerance 8 - GI Upset MORPHINE 06/18/2014 11 - Vomiting Comments: extreme nausea and vomiting PAXIL (PAROXETINE HCL) 07/18/2016 14 - Other: See Comments Comments: Made depression worse PREDNISONE 01/14/2015 14 - Other: See Comments Comments: heart racing and face was beet red. PROZAC (FLUOXETINE HCL) 07/18/2016 14 - Other: See Comments Comments: Made depression worse SEROQUEL (QUETIAPINE) 03/18/2024 14 - Other: See Comments Comments: Zero sex drive TAPE (ADHESIVE TAPE (ROSINS)) 02/08/2016 16 - Unknown WELLBUTRIN (BUPROPION HCL) 07/18/2016 14 - Other: See Comments Comments: Made depression worse ZOLOFT (SERTRALINE HCL) 07/18/2016 14 - Other: See Comments Comments: Made depression worse Date Reviewed: 03/18/2024 Reviewed by: Isael Fish MD - Fully Assessed Reason for Visit: Results [95] Cmt: Prescriptions as of 03/24/2024 - levothyroxine (LEVOXYL) 25 mcg tablet Take 1 tablet by mouth once daily. Along with your 200 mcg tab for a total of 225 mcg a day. Take on empty stomach. For Thyroid - losartan (COZAAR) 50 mg tablet Take 1 tablet by mouth once daily. - omeprazole (PRILOSEC) 40 mg capsule Take 1 capsule by mouth two times a day. - spironolactone (ALDACTONE) 100 mg tablet TAKE ONE TABLET ONCE PER DAY AT THE SAME TIME EVERY DAY - empagliflozin (JARDIANCE) 10 mg tablet Take 1 tablet by mouth once daily. Take 1 tablet once daily in the morning - clonazePAM (KLONOPIN) 0.5 mg tablet Take 1 tablet by mouth three times a day for 90 days. - levothyroxine (SYNTHROID) 200 mcg tablet Take 1 tablet by mouth once daily. - montelukast (SINGULAIR) 10 mg tablet Take 1 tablet by mouth daily at bedtime. - dimethyl fumarate (TECFIDERA) [address] Take 1 capsule (240 mg) by mouth two times a day. - baclofen 10 mg tablet Take 1 tablet by mouth once daily as needed. - pregabalin (LYRICA) 50 mg capsule Take 1 capsule by mouth two times a day for 90 days. - Drospirenone-Ethinyl Estradiol 3-0.03 mg per tablet Take 1 tablet by mouth once daily. For continuous use. Take active pills only for 4 packs then one week of placebo pills. - escitalopram oxalate (LEXAPRO) 20 mg tablet Take 20 mg by mouth once daily. One tablet daily - meclizine (ANTIVERT) 12.5 mg tab Take 1 tablet by mouth three times daily as needed (dizziness). - carvedilol (COREG) 25 mg tablet Take 1 tablet by mouth twice daily. Per Cardio - fluticasone (FLONASE) 50 mcg/actuation nasal spray Use 2 Sprays in each nostril once daily. Rinse mouth after use. - Cetirizine 10 mg cap Take by mouth. - biotin 5 mg tab Take 5,000 mg by mouth once daily. - omega-3 fatty acids 1,000 mg cap Take 1,000 mg by mouth once daily. - Cholecalciferol, Vitamin D3, 1,000 unit cap Take 1,000 Units by mouth once daily. - pyridoxine hcl(VITAMIN B-6 100 MG TAB) One daily. - MULTI-VITAMIN TAB 1 tablet daily - CALCIUM 500 MG TAB 1 tablet daily Problem List As Of Date 03/24/2024 Noted Resolved Postprocedural hypothyroidism [E89.0] 04/23/2003 Multiple sclerosis (HCC) [G35] 12/16/2012 Mixed hyperlipidemia [E78.2] 03/14/2016 Generalized anxiety disorder [F41.1] 03/14/2016 Takotsubo cardiomyopathy [I51.81] 03/14/2016 PCOS (polycystic ovarian syndrome) [E28.2] 03/14/2016 Dysmetabolic syndrome [E88.810] 03/14/2016 Migraine with aura and without status migrainos* Encounter for gynecological examination without*03/14/2016 LBBB (left bundle branch block) [I44.7] 03/14/2016 Well adult exam [Z00.00] 03/14/2016 Chronic systolic heart failure (HCC) [I50.22] Chest pain [R07.9] 06/04/2018 Depression [F32.A] 07/18/2016 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 Normal [facility] CNOVon 03-18-2024 CNOV Office Visit (FAMPWS ) ROMI RODRIGEZ ([id number]) 1985 F Date Time Provider Department 03/18/24 4:00 PM ISAEL FISH FAMPWS During your visit today, we recorded the following information about you: Pulse Respiration Blood pressure Weight 72/minute 16/minute 130/80 123.8 kg Height Last Period 1.759 m 03/05/24 Isael Fish MD 03/18/2024 7:46 PM Signed Chief Complaint Patient presents with: Physical HPI Romi Rodrigez is a 38 year old female who presents here today for Physical. Patient with Hx of HTN, general anxiety, depression, hypothyroidism, hyperlipidemia, Migraines, systolic CHF, Takotsubo cardiopathy, GERD, MS as well as those reviewed and addressed below. Patient has been dong ok. Past medical history, appointments, medications, allergies reviewed. 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 Downing-Santos Neuro Muscle spasm 12/16/2019 Related to MS. On Clonopin Obesity, Class II, BMI 35-39.9 08/15/2022 Obesity, Class III, BMI 40-49.9 (morbid obesity) ([facility]) 08/15/2022 PCOS (polycystic ovarian syndrome) 03/14/2016 PMH - PAST MEDICAL HISTORY OF radioactive iiodine Postprocedural hypothyroidism 04/23/2003 Seasonal allergies 07/26/2021 Takotsubo cardiomyopathy 03/14/[address] Trevino Previous Surgical History PAST SURGICAL HISTORY Procedure Laterality Date 2D ECHO (EXEP) 06/21/2020 EF=40%, mild syst dysf 2D ECHO (EXEP) 04/12/2021 EF=45%, mild syst dysf, trival ND, TI 2D ECHO (EXEP) 08/08/2021 EF=45%, no significant valve disease ANKLE ARTHROSCOPY/SURGERY Right ECHO LVEF 37% ECHOCARDIOGRAM 05/29/2017 LEXISCAN STRESS TEST 06/21/2020 EF=41% , changes consistent with previous ND, no new reversible ischemic areas. PAST SURGICAL HISTORY OF arthroscopic knee surgery on right PAST SURGICAL HISTORY OF reconstructive to right leg for dog bite PAST SURGICAL HISTORY OF TMJ surgery which helped head pain. PAST SURGICAL HISTORY OF Jaw arthroscopy/surgery PAST SURGICAL HISTORY OF 2013 breast reduction PAST SURGICAL HISTORY OF 01/15/2017 micodiscectomy L4-L5 PAST SURGICAL HISTORY OF Bilateral 12/2018 Lasik surgery Family History FAMILY HISTORY Problem Relation Age of Onset other (diabetes mellitus) Mother other (pancreatic cancer) Mother 65 Coronary Artery Disease Father from [place] age 60 other (Sudden ) Father other (ovarian cyst) Sister oophorectomy other (endometriosis) Sister other (post concussion syndrome) Sister COPD Maternal Grandmother other (atrial fibrillation) Maternal Grandmother other (strokes) Maternal Grandmother other (brain tumor) Other Miscarriages / Stillbirths Other other (multiple sclerosis) Other mothers cousin with MS Patient Allergies ALLERGIES Allergen Reactions Michelle [Fexofenadi* Hives Lidocaine Rash, Hives Lisinopril Swelling Angio edema Buspar [Buspirone H* Other: See Comments Lack of efficacy. Codeine Intolerance, GI Upset Morphine Vomiting extreme nausea and vomiting Paxil [Paroxetine H* Other: See Comments Made depression worse Prednisone Other: See Comments heart racing and face was beet red. Prozac [Fluoxetine * Other: See Comments Made depression worse Tape [Adhesive Tape* Unknown Wellbutrin [Bupropi* Other: See Comments Made depression worse Zoloft [Sertraline * Other: See Comments Made depression worse Current Medications Current Outpatient Medications on File Prior to Visit Medication Sig levothyroxine (LEVOXYL) 25 mcg tablet Take 1 tablet by mouth once daily. Along with your 200 mcg tab for a total of 225 mcg a day. Take on empty stomach. For Thyroid losartan (COZAAR) 50 mg tablet Take 1 tablet by mouth once daily. omeprazole (PRILOSEC) 40 mg capsule Take 1 capsule by mouth two times a day. spironolactone (ALDACTONE) 100 mg tablet TAKE ONE TABLET ONCE PER DAY AT THE SAME TIME EVERY DAY empagliflozin (JARDIANCE) 10 mg tablet Take 1 tablet by mouth once daily. Take 1 tablet once daily in the morning clonazePAM ( (more content not included)... Normal [facility] FERRITIN BLDon 08-30-2023 Ferritin [Mass/Vol] 42 ng/mL 8 - 252 [facility] INSULIN, FREEon 08-30-2023 Insulin 13 2.6 - 37.6 [facility] IRON PANEL (OUTSIDE)on 08-30 Iron % Saturation 29.2 15 - 55 [facility] Iron [Mass/Vol] 119 ug/dL 50 - 170 [facility] TIBC 408 250 - 450 [facility] LIPID PANEL (EXTERNAL)on HDC-L 70 mg/dL Abnormal 41 mg/dL [facility] LDL Chol, calculated 97 MG/DL 130 MG/DL [facility] VLDL 47 Ratio Abnormal 5 - 40 Ratio [facility] LIPID PANEL (OUTSIDE)on 08-08 Cholesterol in HDL [Mass/Vol] 70 mg/dL 50 [facility] Cholesterol in LDL [Mass/Vol] 97 mg/dL 130 [facility] LDL:HDL Ratio [facility] Non-HDL Cholesterol [facility] TC:HDL Ratio [facility] VLDL Cholesterol [facility] - Chemistry and C hemistry - challengeon 08-30-2023 Cholesterol [Mass/Vol] 214 mg/dL Abnormal 200 [facility] Triglyceride [Mass/Vol] 236 mg/dL Abnormal 150 [facility] Laboratory - Hematology and Cell countson 08-30-2023 HbA1c (Bld) [Mass fraction] 5.1 % 0 - 5.7 % [facility] TSH (EXTERNAL)on 08-30-2023 TSH 11.00 IU/ml Abnormal 0.358 - 3.74 IU/ml [facility] TSH 11.0 IU/ml Abnormal 0.358 - 3.72 IU/ml [facility] CBC W/DIFF/PLT (EXTERNAL LAB NIKUNJ)on 02-22-2023 BASO ABSOLUTE [facility] Basophils/100 WBC (Bld) 0.5 % [facility] EOS ABSOLUTE [facility] Eosinophils/100 WBC (Bld) 2.3 % [facility] Erythrocyte distribution width (RBC) [Ratio] 12.8 % 12.3 - 15.4 % [facility] Hematocrit (Bld) [Volume fraction] 37 % Abnormal 37.5 - 51.0 % [facility] Hemoglobin (Bld) [Mass/Vol] 12.8 g/dL 12.6 - 17.7 g/dL [facility] Immature Gran % [facility] IMMATURE GRANS ABSOLUTE [facility] Lymphocytes (Bld) [#/Vol] 1.12 10*3/uL 0.7 - 3.1 k/uL [facility] Lymphocytes/100 WBC (Bld) 26.0 % [facility] MCH 29.8 Pg 26.6 - 33 Pg [facility] MCHC (RBC) [Mass/Vol] 34.6 g/dL 31.5 - 35.7 g/dL [facility] MCV (RBC) [Entitic vol] 86.2 fL 79 - 97 fL [facility] MONOCYTES ABSOLUTE [facility] Monocytes/100 WBC (Bld) 8.6 % [facility] NEUTROPHILS ABSOLUTE 2.7 k/uL 1.4 - 7 .0 k/uL [facility] Neutrophils/100 WBC (Bld) 62.4 % [facility] Platelets (Bld) [#/Vol] 267 10*3/uL 150 - 379 k/uL [facility] RBC (Bld) [#/Vol] 4.29 10*6/uL 4.14 - 5.8 0 M/uL [facility] WBC (Bld) [#/Vol] 4.3 10*3/uL 3.4 - 10.8 K/uL [facility] CMP (EXTERNAL)on 02-22-2023 Albumin [Mass/Vol] 3.4 g/dL 3.2 - 4.6 gm/dL [facility] Alk Phos Total 56 U/L 45 - 117 U/L [facility] ALT [Catalytic activity/Vol] 23 U/L 12 - 78 U/L [facility] AST [Catalytic activity/Vol] 17 U/L 8 - 37 U/L [facility] Bili Total 0.3 mg/dL 0.2 - 1 mg/dL [facility] Calcium [Mass/Vol] 8.9 mg/dL 8.5 - 10. 1 mg/dL [facility] Chloride [Moles/Vol] 105 mmol/L 98 - 10 7 MEQ/L [facility] CO2 [Moles/Vol] 25 mmol/L 21 - 32 MEQ/L [facility] Creatinine [Mass/Vol] 0.65 mg/dL 0.6 - 1.3 MG/DL [facility] GFR AFR AMER 131 mL/MIN [facility] GFR/1.73 sq M.predicted among non-blacks MDRD (S/P/Bld) [Vol rate/Area] 108 mL/min/{1.73_m2} [facility] Glucose [Mass/Vol] 95 mg/dL 74 - 106 MG/DL [facility] Phosphate (Bld) [Moles/Vol] 3.7 2.5 - 4.9 [facility] Potassium [Moles/Vol] 4.2 mmol/L 3.5 - 5.1 mmol/L [facility] Protein [Mass/Vol] 7.6 g/dL 6.4 - 8.2 gm/dL [facility] Sodium [Moles/Vol] 137 mmol/L 136 - 145 mmol/L [facility] Urea nitrogen [Mass/Vol] 13 mg/dL 7 - 18 MG/DL [facility] HEMOGLOBIN A1C (EXTERNAL)on 02-22-2023 HbA1c (Bld) [Mass fraction] 4.8 % 0 - 5.7 % [facility] LIPID PANEL (OUTSIDE)on 02-04 Cholesterol [Mass/Vol] 191 mg/dL 200 [facility] Cholesterol in HDL [Mass/Vol] 76 mg/dL 50 [facility] Cholesterol in LDL [Mass/Vol] 147 mg/dL Abnormal 92 [facility] LDL:HDL Ratio [facility] Non-HDL Cholesterol [facility] TC:HDL Ratio [facility] Triglyceride [Mass/Vol] 116 mg/dL 150 [facility] VLDL Cholesterol [facility] Magnesium [Mass/Vol]on 02-22 Magnesium.plasma/Magn esium.RBC (Bld) [Molar ratio] 2.1 1.6 - 2.6 [facility] TSH (EXTERNAL)on 02-22-2023 TSH Qn 0.69 m[IU]/L 0.358 - 3.74 IU/ml [facility] VITAMIN B12 BLOODon 02-23-20 Cobalamin (Vitamin B12) [Mass/Vol] 518 pg/mL 211 - 911 [facility] Absolute lymphocyte counton 09-21-2022 Lymphocytes Auto (Unsp spec) [#/Vol] 1.52 10*3/uL 0.83-4.51 [facility] Work Phone: Basophil percentageon 2021 Basophils/100 WBC (Bld) 0.2 % 0-1 [facility] Work Phone: Chloride [Moles/Vol] 103 mmol/L 98-107 [facility] Work Phone: Eosinophils/100 WBC (Bld) 2.5 % 0-5 [facility] Work Phone: Glucose [Mass/Vol] 92 mg/dL 74-106 [facility] Work Phone: [phone] Neutrophils (Bld) [#/Vol] 2.7 10*3/uL 2.0-7.7 [facility] Work Phone: Neutrophils/100 WBC (Bld) 55.7 % 47-70 [facility] Work Phone: [phone] Potassium [Moles/Vol] 3.8 mmol/L 3.5-5.1 [facility] Work Phone: [phone] Sodium [Moles/Vol] 136 mmol/L 136-145 [facility] Work Phone: [phone] WBC (Bld) [#/Vol] 4.9 10*3/uL 4.4-11.0 [facility] Work Phone: [phone] Blood erythrocytes count (nu mber/volume)on 09-21-2022 RBC (Bld) [#/Vol] 4.74 10*6/uL 4.2-5.4 [facility] Work Phone: Blood hemoglobin measurement (mass/volume)on 09-21-2022 Hemoglobin (Bld) [Mass/Vol] 13.6 g/dL 12.0-15.0 [facility] Work Phone: Blood lymphocytes/100 leukoc yteson 09-21-2022 Lymphocytes/100 WBC (Bld) 31.3 % 19-41 [facility] Work Phone: Blood monocytes/100 leukocyt eson 09-21-2022 Monocytes/100 WBC (Bld) 10.1 % 0-10 [facility] Work Phone: Blood platelet mean volumeon 09-21-2022 Platelet mean volume (Bld) [Entitic vol] 9.6 fL 6.2-12.0 [facility] Work Phone: Determination of erythrocyte mean corpuscular volume (MCV)on 09-21-2022 MCV (RBC) [Entitic vol] 85.7 fL 81-99 [facility] [facility] Work Phone: Hematocrit Auto (Bld) [Volum e fraction]on 09-21-2022 Hematocrit (Bld) [Volume fraction] 40.6 % 37-47 [facility] Work Phone: Laboratory - Chemistry and C hemistry - challengeon 09-21-2022 CO2 [Moles/Vol] 27.0 mmol/L 21.0-32.0 [facility] Work Phone: Urea nitrogen/Creatinine [Mass ratio] 23.3 mg/mg 10-20 [facility] Work Phone: Laboratory - Hematology and Cell countson 09-21-2022 Erythrocyte distribution width (RBC) [Entitic vol] 40.1 fL 35.1-43.9 [facility] Work Phone: Erythrocyte distribution width (RBC) [Ratio] 12.9 % 11.6-14.6 [facility] Work Phone: Immature granulocytes/100 WBC (Bld) 0.200 % 0.0-0.9 [facility] Work Phone: Comment on above: IG% - Immature Granu locytes (promyelocytes, myelocytes and metamyelocytes) > 1% indicates that a LEFT SHIFT is Present. MCH (RBC) [Entitic mass] 28.7 pg 27.0-32.0 [facility] Work Phone: Nucleated RBC/100 WBC (Bld) [Ratio] 0 % 0-5 [facility] Work Phone: MCHC Auto (RBC) [Mass/Vol]on 09-21-2022 MCHC (RBC) [Mass/Vol] 33.5 g/dL 32-36 [facility] Work Phone: No Panel Informationon 09-21 Estimated Creatinine Clearance Calc 123.33 ml/min [facility] Work Phone: Estimated GFR (MDRD) Amer 132 mL/min >60 [facility] Work Phone: Comment on above: GFR Calc Estimated GFR (MDRD) Non-Af Amer 109 mL/min >60 [facility] Work Phone: Comment on above: Non- GFR Calc Troponin I High Sensitivity 4 pg/mL 3.0-54.0 [facility] Work Phone: Comment on above: Please Note: New Carlos t Units and Gender Specific Reference Ranges. For more information see Policy Stat Procedure [place] High Sensitivity Troponin (TNIH) and attachments. Platelets bldon 09-21-2022 Platelets (Bld) [#/Vol] 287 10*3/uL 150-450 [facility] Work Phone: Serum or plasma calcium abdullahi urement (mass/volume)on 09-21-2022 Calcium [Mass/Vol] 9.3 mg/dL 8.5-10.1 [facility] Work Phone: Serum or plasma creatinine m easurement (mass/volume)on 09-21-2022 Creatinine [Mass/Vol] 0.64 mg/dL 0.55-1.02 [facility] Work Phone: Comment on above: The validity of the calculated GFR & GFRAA in patients over 70 years has not been determined. Clinical correlation is essential. Serum or plasma urea nitroge n measurement (mass/volume)on 09-21-2022 Urea nitrogen [Mass/Vol] 15 mg/dL 7-18 [facility] Work Phone: Thin prep Papanicolaou smear with manual screeningon 09-21-2022 Thin prep Papanicolaou smear with manual screening 6 5-15 [facility] Work Phone: Absolute lymphocyte counton 08-14-2022 Lymphocytes Auto (Unsp spec) [#/Vol] 1.26 10*3/uL 0.83-4.51 [facility] Work Phone: Absolute reticulocyte counto n 08-14-2022 Reticulocytes (Bld) [#/Vol] 0.00 10*3/uL 0-5 [facility] Work Phone: BMP - EXTERNALon 08-14-2022 ANION GAP [facility] BICARBONATE [facility] GFR AFR AMER 131 mL/MIN [facility] Urea Nitrogen [facility] Basophil percentageon 2021 Amylase [Catalytic activity/Vol] 73 U/L 25-115 [facility] Work Phone: Basophil percentage 3.5 mg/dL 2.5-4.9 [facility] Work Phone: Bilirubin [Mass/Vol] 0.50 mg/dL 0.20-1.00 [facility] Work Phone: Comment on above: For patients on eltr ombopag therapy, use of Dimension [place] TBIL is not recommended. Bilirubin [Mass/Vol] 0.30 mg/dL 0.20-1.00 [facility] Work Phone: Comment on above: For patients on eltr ombopag therapy, use of Dimension [place] TBIL is not recommended. Chloride [Moles/Vol] 101 mmol/L 98-107 [facility] Cholesterol [Mass/Vol] 232 mg/dL <200 [facility] Comment on above: <200 mg/dL Desirable 200-240 mg/dL Borderline >240 mg/dL High Risk Glucose [Mass/Vol] 86 mg/dL 74-106 [facility] Neutrophils (Bld) [#/Vol] 3.2 10*3/uL 2.0-7.7 [facility] Work Phone: Potassium [Moles/Vol] 4.0 mmol/L 3.5-5.1 [facility] Protein [Mass/Vol] 8.3 g/dL 6.4-8.2 [facility] Protein [Mass/Vol] 8.4 g/dL 6.4-8.2 [facility] Work Phone: Sodium [Moles/Vol] 137 mmol/L 136-145 [facility] Triglyceride [Mass/Vol] 106 mg/dL <199 [facility] Comment on above: The drugs N-Acetylcy steine and Metamizole may falsely depress this assay.Serum Triglycerides Reference Interval Normal <150 mg/dL Borderline high 150 - 199 mg/dL High 200 - 499 mg/dL Very High > or = 500 mg/dL WBC (Bld) [#/Vol] 5.0 10*3/uL 4.4-11.0 [facility] Work Phone: Blood erythrocytes count (nu mber/volume)on 08-14-2022 RBC (Bld) [#/Vol] 4.60 10*6/uL 4.2-5.4 [facility] Work Phone: Blood hemoglobin measurement (mass/volume)on 08-14-2022 Hemoglobin (Bld) [Mass/Vol] 13.3 g/dL 12.0-15.0 [facility] Work Phone: Blood platelet mean volumeon 08-14-2022 Platelet mean volume (Bld) [Entitic vol] 10.3 fL 6.2-12.0 [facility] Work Phone: CMP (EXTERNAL)on 08-14-2022 Alk Phos Total 55 U/L 45 - 117 U/L [facility] AST [Catalytic activity/Vol] 18 U/L 8 - 37 U/L [facility] Bili Total 0.3 mg/dL 0.2 - 1 mg/dL [facility] Direct Bilirubin 0.1 0.0 - 0.3 [facility] GFR AFR AMER [facility] Phosphate (Bld) [Moles/Vol] 3.5 2.5 - 4.9 [facility] Determination of erythrocyte mean corpuscular volume (MCV)on 08-14-2022 MCV (RBC) [Entitic vol] 87.4 fL 81-99 [facility] Work Phone: Direct bilirubinon 2 Bilirubin.direct [Mass/Vol] 0.11 mg/dL 0.00-0.30 [facility] Work Phone: Bilirubin.direct [Mass/Vol] 0.10 mg/dL 0.00-0.30 [facility] Work Phone: Hematocrit Auto (Bld) [Volum e fraction]on 08-14-2022 Hematocrit (Bld) [Volume fraction] 40.2 % 37-47 [facility] Work Phone: LDH PLASMAon 08-14-2022 LDH 164 84 - 246 [facility] LIPID PANEL (OUTSIDE)on LDL:HDL Ratio [facility] Non-HDL Cholesterol [facility] TC:HDL Ratio [facility] VLDL Cholesterol [facility] Laboratory - Chemistry and C hemistry - challengeon 08-14-2022 ALP [Catalytic activity/Vol] 55 U/L 45-117 [facility] Work Phone: ALT [Catalytic activity/Vol] 24 U/L 13-56 [facility] Cholesterol.total/Cho lesterol in HDL [Mass ratio] 2.40 {ratio} [facility] Work Phone: CO2 [Moles/Vol] 27.0 mmol/L 21.0-32.0 [facility] Globulin (S) [Mass/Vol] 4.4 g/dL 2.2-4.2 [facility] Work Phone: Lipase [Catalytic activity/Vol] 136 U/L 73-393 [facility] Work Phone: Urate [Mass/Vol] 3.7 mg/dL 2.6-6.0 [facility] Comment on above: The drugs N-Acetylcy steine and Metamizole may falsely depress this assay. Urea nitrogen/Creatinine [Mass ratio] 20.0 mg/mg 10-20 [facility] Work Phone: GFR/1.73 sq M.predicted among non-blacks MDRD (S/P/Bld) [Vol rate/Area] 108 mL/min/{1.73_m2} [facility] Laboratory - Hematology and Cell countson 08-14-2022 Erythrocyte distribution width (RBC) [Entitic vol] 40.4 fL 35.1-43.9 [facility] Work Phone: Erythrocyte distribution width (RBC) [Ratio] 12.9 % 11.6-14.6 [facility] Work Phone: MCH (RBC) [Entitic mass] 28.9 pg 27.0-32.0 [facility] Work Phone: Nucleated RBC/100 WBC (Bld) [Ratio] 0 % 0-5 [facility] Work Phone: MCHC Auto (RBC) [Mass/Vol]on 08-14-2022 MCHC (RBC) [Mass/Vol] 33.1 g/dL 32-36 [facility] Work Phone: No Panel Informationon 08-14 Estimated GFR (MDRD) Amer 131 mL/min >60 [facility] Work Phone: Comment on above: GFR Calc Estimated GFR (MDRD) Non-Af Amer 108 mL/min >60 [facility] Work Phone: Comment on above: Non- GFR Calc Thyroid Stimulating Hormone (TSH) 1.06 uIU/mL 0.358-3.74 [facility] Work Phone: Platelets bldon 08-14-2022 Platelets (Bld) [#/Vol] 302 10*3/uL 150-450 [facility] Work Phone: Segmented neutrophils/100 WB C Auto (Bld)on 08-14-2022 Segmented neutrophils/100 WBC (Bld) 62.7 % 47-70 [facility] Work Phone: Serum or plasma albumin abdullahi urement (mass/volume)on 08-14-2022 Albumin [Mass/Vol] 3.9 g/dL 3.2-5.0 [facility] Albumin [Mass/Vol] 4.0 g/dL 3.2-5.0 [facility] Work Phone: Serum or plasma albumin/glob ulin mass ratioon 08-14-2022 Albumin/Globulin [Mass ratio] 0.9 {ratio} 0.9-2.4 [facility] Work Phone: Serum or plasma calcium abdullahi urement (mass/volume)on 08-14-2022 Calcium [Mass/Vol] 9.2 mg/dL 8.5-10.1 [facility] Serum or plasma cholesterol in HDL measurement (mass/volume)on 08-14-2022 Cholesterol in HDL [Mass/Vol] 96 mg/dL >40 [facility] Comment on above: The drugs N-Acetylcy steine and Metamizole may falsely depress this assay. Reference Range HDL <40 mg/dL Low HDL Cholesterol HDL >or= 60 mg/dL High HDL Cholesterol Serum or plasma cholesterol in VLDL measurement (mass/volume)on 08-14-2022 Cholesterol in VLDL [Mass/Vol] 21 mg/dL 5-40 [facility] Work Phone: Serum or plasma creatinine m easurement (mass/volume)on 08-14-2022 Creatinine [Mass/Vol] 0.65 mg/dL 0.55-1.02 [facility] Comment on above: The validity of the calculated GFR & GFRAA in patients over 70 years has not been determined. Clinical correlation is essential. Serum or plasma low density lipoprotein (LDL) cholesterol measurement (mass/volume)on 08-14-2022 Cholesterol in LDL [Mass/Vol] 115 mg/dL 0-130 [facility] Serum or plasma urea nitroge n measurement (mass/volume)on 08-14-2022 Urea nitrogen [Mass/Vol] 13 mg/dL 7-18 [facility] TSH (EXTERNAL)on 08-14-2022 TSH 1.06 IU/ml 0.358 - 3.74 IU/ml [facility] Thin prep Papanicolaou smear with manual screeningon 08-14-2022 Thin prep Papanicolaou smear with manual screening 16 U/L 15-37 [facility] Work Phone: Thin prep Papanicolaou smear with manual screening 18 U/L 15-37 [facility] Work Phone: [phone] Thin prep Papanicolaou smear with manual screening 9 5-15 [facility] Work Phone: [phone] Thin prep Papanicolaou smear with manual screening 164 U/L 84-246 [facility] Work Phone: [phone] Absolute lymphocyte counton 06-21-2022 Lymphocytes Auto (Unsp spec) [#/Vol] 0.95 10*3/uL 0.83-4.51 [facility] Work Phone: Basophil percentageon 2021 Amylase [Catalytic activity/Vol] 61 U/L 25-115 [facility] Work Phone: [phone] Basophils/100 WBC (Bld) 0.6 % 0-1 [facility] Work Phone: [phone] Bilirubin [Mass/Vol] 0.30 mg/dL 0.20-1.00 [facility] Work Phone: Comment on above: For patients on eltr ombopag therapy, use of Dimension [place] TBIL is not recommended. Eosinophils/100 WBC (Bld) 1.7 % 0-5 [facility] Work Phone: Neutrophils (Bld) [#/Vol] 3.6 10*3/uL 2.0-7.7 [facility] Work Phone: [phone] Neutrophils/100 WBC (Bld) 68.7 % 47-70 [facility] Work Phone: Protein [Mass/Vol] 8.1 g/dL 6.4-8.2 [facility] Work Phone: WBC (Bld) [#/Vol] 5.3 10*3/uL 4.4-11.0 [facility] Work Phone: Blood erythrocytes count (nu mber/volume)on 06-21-2022 RBC (Bld) [#/Vol] 4.52 10*6/uL 4.2-5.4 [facility] Work Phone: Blood hemoglobin measurement (mass/volume)on 06-21-2022 Hemoglobin (Bld) [Mass/Vol] 13.4 g/dL 12.0-15.0 [facility] Work Phone: Blood lymphocytes/100 leukoc yteson 06-21-2022 Lymphocytes/100 WBC (Bld) 18.0 % 19-41 [facility] Work Phone: Blood monocytes/100 leukocyt eson 06-21-2022 Monocytes/100 WBC (Bld) 10.8 % 0-10 [facility] Work Phone: Blood platelet mean volumeon 06-21-2022 Platelet mean volume (Bld) [Entitic vol] 10.3 fL 6.2-12.0 [facility] Work Phone: Determination of erythrocyte mean corpuscular volume (MCV)on 06-21-2022 MCV (RBC) [Entitic vol] 87.2 fL 81-99 [facility] Work Phone: Direct bilirubinon 2 Bilirubin.direct [Mass/Vol] 0.08 mg/dL 0.00-0.30 [facility] Work Phone: Hematocrit Auto (Bld) [Volum e fraction]on 06-21-2022 Hematocrit (Bld) [Volume fraction] 39.4 % 37-47 [facility] Work Phone: Laboratory - Chemistry and C hemistry - challengeon 06-21-2022 ALP [Catalytic activity/Vol] 51 U/L 45-117 [facility] Work Phone: ALT [Catalytic activity/Vol] 21 U/L 13-56 [facility] Work Phone: Globulin (S) [Mass/Vol] 4.5 g/dL 2.2-4.2 [facility] Work Phone: Lipase [Catalytic activity/Vol] 133 U/L 73-393 [facility] Work Phone: Laboratory - Hematology and Cell countson 06-21-2022 Erythrocyte distribution width (RBC) [Entitic vol] 39.9 fL 35.1-43.9 [facility] Work Phone: Erythrocyte distribution width (RBC) [Ratio] 12.5 % 11.6-14.6 [facility] Work Phone: Immature granulocytes/100 WBC (Bld) 0.200 % 0.0-0.9 [facility] Work Phone: Comment on above: IG% - Immature Granu locytes (promyelocytes, myelocytes and metamyelocytes) > 1% indicates that a LEFT SHIFT is Present. MCH (RBC) [Entitic mass] 29.6 pg 27.0-32.0 [facility] Work Phone: Nucleated RBC/100 WBC (Bld) [Ratio] 0 % 0-5 [facility] Work Phone: MCHC Auto (RBC) [Mass/Vol]on 06-21-2022 MCHC (RBC) [Mass/Vol] 34.0 g/dL 32-36 [facility] Work Phone: Platelets bldon 06-21-2022 Platelets (Bld) [#/Vol] 308 10*3/uL 150-450 [facility] Work Phone: Serum or plasma albumin abdullahi urement (mass/volume)on 06-21-2022 Albumin [Mass/Vol] 3.6 g/dL 3.2-5.0 [facility] Work Phone: Thin prep Papanicolaou smear with manual screeningon 06-21-2022 Thin prep Papanicolaou smear with manual screening 15 U/L 15-37 [facility] Work Phone: Absolute lymphocyte counton 01-26-2022 Lymphocytes Auto (Unsp spec) [#/Vol] 1.14 10*3/uL 0.83-4.51 [facility] Work Phone: Basophil percentageon 2021 Basophil percentage 0 SEEN /hpf [facility] Work Phone: Basophils/100 WBC (Bld) 0.4 % 0-1 [facility] Work Phone: Bilirubin [Mass/Vol] 0.30 mg/dL 0.20-1.00 [facility] Work Phone: Comment on above: For patients on eltr ombopag therapy, use of Dimension [place] TBIL is not recommended. Chloride [Moles/Vol] 103 mmol/L 98-107 [facility] Work Phone: Cholesterol [Mass/Vol] 181 mg/dL <200 [facility] Work Phone: Comment on above: <200 mg/dL Desirable 200-240 mg/dL Borderline >240 mg/dL High Risk Eosinophils/100 WBC (Bld) 2.2 % 0-5 [facility] Work Phone: Glucose [Mass/Vol] 106 mg/dL 74-106 [facility] Work Phone: Comment on above: Fasting Glucose resu lt from 100 to 125 mg/dL suggests IMPAIRED HOMEOSTASIS per A.D.A. criteria. Neutrophils (Bld) [#/Vol] 3.2 10*3/uL 2.0-7.7 [facility] Work Phone: Neutrophils/100 WBC (Bld) 63.7 % 47-70 [facility] Work Phone: Potassium [Moles/Vol] 4.2 mmol/L 3.5-5.1 [facility] Work Phone: Protein [Mass/Vol] 7.9 g/dL 6.4-8.2 [facility] Work Phone: Sodium [Moles/Vol] 137 mmol/L 136-145 [facility] Work Phone: Triglyceride [Mass/Vol] 119 mg/dL [facility] Work Phone: Comment on above: The drugs N-Acetylcy steine and Metamizole may falsely depress this assay.Serum Triglycerides Reference Interval Normal <150 mg/dL Borderline high 150 - 199 mg/dL High 200 - 499 mg/dL Very High > or = 500 mg/dL WBC (Bld) [#/Vol] 5.1 10*3/uL 4.4-11.0 [facility] Work Phone: Bilirubin Test strip Ql (U)o n 01-26-2022 Bilirubin Ql (U) Negative Negative [facility] Work Phone: Blood erythrocytes count (nu mber/volume)on 01-26-2022 RBC (Bld) [#/Vol] 4.52 10*6/uL 4.2-5.4 [facility] Work Phone: Blood hemoglobin measurement (mass/volume)on 01-26-2022 Hemoglobin (Bld) [Mass/Vol] 13.2 g/dL 12.0-15.0 [facility] Work Phone: Blood lymphocytes/100 leukoc yteson 01-26-2022 Lymphocytes/100 WBC (Bld) 22.6 % 19-41 [facility] Work Phone: Blood monocytes/100 leukocyt eson 01-26-2022 Monocytes/100 WBC (Bld) 10.9 % 0-10 [facility] Work Phone: Blood platelet mean volumeon 01-26-2022 Platelet mean volume (Bld) [Entitic vol] 10.2 fL 6.2-12.0 [facility] Work Phone: Determination of erythrocyte mean corpuscular volume (MCV)on 01-26-2022 MCV (RBC) [Entitic vol] 86.5 fL 81-99 [facility] Work Phone: Hematocrit Auto (Bld) [Volum e fraction]on 01-26-2022 Hematocrit (Bld) [Volume fraction] 39.1 % 37-47 [facility] Work Phone: Ketones Test strip Ql (U)on 01-26-2022 Ketones Ql (U) Negative Negative [facility] Work Phone: Laboratory - Chemistry and C hemistry - challengeon 01-26-2022 ALP [Catalytic activity/Vol] 49 U/L 45-117 [facility] Work Phone: ALT [Catalytic activity/Vol] 26 U/L 13-56 [facility] Work Phone: CO2 [Moles/Vol] 29.0 mmol/L 21.0-32.0 [facility] Work Phone: Globulin (S) [Mass/Vol] 4.0 g/dL 2.2-4.2 [facility] Work Phone: Magnesium [Mass/Vol] 1.9 mg/dL 1.6-2.6 [facility] Work Phone: Urea nitrogen/Creatinine [Mass ratio] 19.5 mg/mg 10-20 [facility] Work Phone: Laboratory - Hematology and Cell countson 01-26-2022 Erythrocyte distribution width (RBC) [Entitic vol] 38.5 fL 35.1-43.9 [facility] Work Phone: Erythrocyte distribution width (RBC) [Ratio] 12.0 % 11.6-14.6 [facility] Work Phone: Immature granulocytes/100 WBC (Bld) 0.200 % 0.0-0.9 [facility] Work Phone: Comment on above: IG% - Immature Granu locytes (promyelocytes, myelocytes and metamyelocytes) > 1% indicates that a LEFT SHIFT is Present. MCH (RBC) [Entitic mass] 29.2 pg 27.0-32.0 [facility] Work Phone: Nucleated RBC/100 WBC (Bld) [Ratio] 0 % 0-5 [facility] Work Phone: MCHC Auto (RBC) [Mass/Vol]on 01-26-2022 MCHC (RBC) [Mass/Vol] 33.8 g/dL 32-36 [facility] Work Phone: Mucus LM Ql (Urine sed)on Mucus Ql (Urine sed) 0 SEEN /hpf [facility] Work Phone: Nitrite Test strip Ql (U)on 01-26-2022 Nitrite Ql (U) Negative Negative [facility] Work Phone: No Panel Informationon 01-26 Estimated GFR (MDRD) Amer 117 mL/min >60 [facility] Work Phone: Comment on above: GFR Calc Estimated GFR (MDRD) Non-Af Amer 97 mL/min >60 [facility] Work Phone: Comment on above: Non- GFR Calc Thyroid Stimulating Hormone (TSH) 1.60 uIU/mL 0.358-3.74 [facility] Work Phone: Platelets bldon 01-26-2022 Platelets (Bld) [#/Vol] 306 10*3/uL 150-450 [facility] Work Phone: Protein Test strip Ql (U)on 01-26-2022 Protein Ql (U) Negative Negative [facility] Work Phone: Serum or plasma albumin abdullahi urement (mass/volume)on 01-26-2022 Albumin [Mass/Vol] 3.9 g/dL 3.2-5.0 [facility] Work Phone: Serum or plasma albumin/glob ulin mass ratioon 01-26-2022 Albumin/Globulin [Mass ratio] 1.0 {ratio} 0.9-2.4 [facility] Work Phone: Serum or plasma calcium abdullahi urement (mass/volume)on 01-26-2022 Calcium [Mass/Vol] 9.0 mg/dL 8.5-10.1 [facility] Work Phone: Serum or plasma cholesterol in HDL measurement (mass/volume)on 01-26-2022 Cholesterol in HDL [Mass/Vol] 67 mg/dL [facility] Work Phone: Comment on above: The drugs N-Acetylcy steine and Metamizole may falsely depress this assay. Reference Range HDL <40 mg/dL Low HDL Cholesterol HDL >or= 60 mg/dL High HDL Cholesterol Serum or plasma cholesterol in VLDL measurement (mass/volume)on 01-26-2022 Cholesterol in VLDL [Mass/Vol] 24 mg/dL 5-40 [facility] Work Phone: Serum or plasma creatinine m easurement (mass/volume)on 01-26-2022 Creatinine [Mass/Vol] 0.72 mg/dL 0.55-1.02 [facility] Work Phone: Comment on above: The validity of the calculated GFR & GFRAA in patients over 70 years has not been determined. Clinical correlation is essential. Serum or plasma low density lipoprotein (LDL) cholesterol measurement (mass/volume)on 01-26-2022 Cholesterol in LDL [Mass/Vol] 90 mg/dL 0-130 [facility] Work Phone: Serum or plasma urea nitroge n measurement (mass/volume)on 01-26-2022 Urea nitrogen [Mass/Vol] 14 mg/dL 7-18 [facility] Work Phone: Squamous epithelial cells de tection in urine sediment by light microscopyon 01-26-2022 Epithelial cells.squamous LM Ql (Urine sed) 0-5 SEEN /hpf [facility] Work Phone: Thin prep Papanicolaou smear with manual screeningon 01-26-2022 Thin prep Papanicolaou smear with manual screening 15 U/L 15-37 [facility] Work Phone: Thin prep Papanicolaou smear with manual screening 5 5-15 [facility] Work Phone: Urine blood detectionon 01-06 RBC Ql (U) Negative Negative [facility] Work Phone: RBC Ql (U) 0 SEEN /hpf [facility] Work Phone: Urine clarityon 01-26-2022 Clarity (U) Sl. Cloudy Clear [facility] Work Phone: Urine color determinationon 01-26-2022 Color (U) Yellow Yellow [facility] Work Phone: Urine glucose detectionon Glucose Ql (U) Normal mg/dl Normal [facility] Work Phone: Urine leukocyte esterase det ection by dipstickon 01-26-2022 Leukocyte esterase Test strip Ql (U) Negative Negative [facility] Work Phone: Urine pHon 01-26-2022 pH (U) 7.0 [pH] [facility] Work Phone: Urine sediment bacteria coun t by microscopy (number/high power field)on 01-26-2022 Bacteria LM.HPF (Urine sed) [#/Area] 0 /[HPF] None Seen [facility] Work Phone: Urine specific gravity measu rementon 01-26-2022 Specific gravity (U) [Rel density] 1.010 [facility] Work Phone: Urobilinogen Auto test strip Ql (U)on 01-26-2022 Urobilinogen Ql (U) Normal mg/dl Normal [facility] Work Phone: Whole blood hemoglobin A1c/t otal hemoglobin ratio (mass fraction)on 01-26-2022 HbA1c (Bld) [Mass fraction] 4.8 % 3.8-5.6 [facility] Work Phone: Comment on above: Normal < 5.7 % Predi abetic 5.7 - 6.4 % Diabetic >or= 6.5 % Please note range changes. Laboratory - Microbiology an d Antimicrobial susceptibilityon 10-19-2021 SARS-CoV-2 (COVID-19) RNA JASE+probe Ql (Unsp spec) Not detected [facility] Work Phone: OBSOLETEon 07-06-2018 OBSOLETE Refill (AGCARDPOB) Ben EZEROMI ([id number]) 1985 FDate Time Provider Department07/06/18 [facility] During your visit today, we recorded the following information about you:Dominique Ibarra LPN 07/07/2018 10:56 AM AddendumPatient will need called for clarification on dosage of spironolactone. I lefta message for Ms. Rodrigez to call the office with spironolactone dosage andinstructions.Cholo Kim LPN 07/08/2018 11:32 AM SignedI left another message for Ms. Rodrigez to call the office.Kenneth Kim RN 07/08/2018 1:10 PM SignedPt leaves voicemail that her spironolactone is 100mg once daily.I see where Shanna sent a 90d rx for this in May 2018.Blu Villafana As of Date: 07/06/2018 Noted Allergy ReactionBUSPAR (BUSPIRONE HCL) 08/16/2017 14 - Other: See Comments Comments: Lack of efficacy.CODEINE 07/06/2002 5 - Intolerance 8 - GI UpsetLIDOCAINE 02/08/2016 2 - Rash 4 - HivesLISINOPRIL 03/05/2014 7 - Swelling Comments: Angio edemaMORPHINE 06/18/2014 11 - Vomiting Comments: extreme nausea and vomitingPAXIL (PAROXETINE HCL) 07/18/2016 14 - Other: See Comments Comments: Made depression worsePREDNISONE 01/14/2015 14 - Other: See Comments Comments: heart racing and face was beet red.PROZAC (FLUOXETINE HCL) 07/18/2016 14 - Other: See Comments Comments: Made depression worseTAPE (ADHESIVE TAPE (ROSINS)) 02/08/2016 16 - UnknownWELLBUTRIN (BUPROPION HCL) 07/18/2016 14 - Other: See Comments Comments: Made depression worseZOLOFT (SERTRALINE HCL) 07/18/2016 14 - Other: See Comments Comments: Made depression worseDate Reviewed: 06/04/2018Reviewed by: Shanna Magaña) [place] - Fully AssessedReason for Visit: Refill Request [94]Visit Diagnosis:Cardiomyopath y, unspecified type (HCC) [I42.9]Prescriptions as of 07/06/2018 Sig: SPIRONOLACTONE 100 MG TABLET TAKE ONE TABLET ONCE PER DAY * DIMETHYL FUMARATE 240 MG CAPS* Take 1 capsule by mouth twice* METFORMIN 500 MG TABLET Take 1 tablet by mouth twice * CLONAZEPAM 0.5 MG TABLET Take 1 tablet by mouth three * CARVEDILOL 6.25 MG TABLET Take 1 tablet by mouth twice * LEVOTHYROXINE 25 MCG TABLET Take 1/2 a tab daily Mon thro* LOSARTAN 25 MG TABLET Take 0.5 tablets by mouth onc* GEMFIBROZIL 600 MG TABLET Take 1 tablet by mouth twice * SYNTHROID 200 MCG TABLET TAKE 1 TABLET DAILY BEFORE BR* SYNTHROID 25 MCG TABLET TAKE 1/2 TABLET ONCE DAILY TA* DROSPIRENONE 3 MG-ETHINYL EST* Take 1 tablet by mouth as dir* DROSPIRENONE 3 MG-ETHINYL EST* Take 1 tablet by mouth once d* QUETIAPINE 100 MG TABLET Take 1 tablet by mouth daily * DIMETHYL FUMARATE 120 MG (14)* Take 120 mg by mouth twice da* BIOTIN 5 MG TABLET Take 5,000 mg by mouth once d* OMEGA-3 FATTY ACIDS 1,000 MG * Take 1,000 mg by mouth once d* CHOLECALCIFEROL (VITAMIN D3) * Take 1,000 Units by mouth onc* VITAMIN B-6 100 MG TABLET One daily. MULTI-VITAMIN TABLET 1 tablet daily CALCIUM 500 MG TABLET 1 tablet dailyProblem List As Of Date 07/06/2018 Noted Resolved Postprocedural hypothyroidism [E89.0] INVALID FOR* Priority: A Multiple sclerosis (HCC) [G35] INVALID FOR* Priority: A More... Mixed hyperlipidemia [E78.2] INVALID FOR* Priority: A Generalized anxiety disorder [F41.1] INVALID FOR* Priority: A Cardiomyopathy (HCC) [I42.9] INVALID FOR* Priority: A More... PCOS (polycystic ovarian syndrome) [E28.2] INVALID FOR* Priority: C Dysmetabolic syndrome [E88.81] INVALID FOR* Priority: A Migraine with aura and without status migrainos* Priority: A More... Encounter for gynecological examination without*INVALID FOR* Priority: E More... LBBB (left bundle branch block) [I44.7] INVALID FOR* Priority: B Well adult exam [Z00.00] INVALID FOR* Priority: E More... 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 Essential hypertension [I10] INVALID FOR* Priority: AEncounter Number: [id number] Status:Closed by DOMINIQUE IBARRA on 07/08/18 [facility] OBSOLETEon 06-20-2018 OBSOLETE Refill (AGCARDPOB) ROMI LOCKWOOD ([id number]) 1985 [facility] Time Provider Department06/20/18 [facility] AGCARDPOB During your visit today, we recorded the following information about you:Monica Gannon LPN 06/20/2018 8:13 AM SignedPharmacy electronically requesting refills as follows:Refused Prescriptions Disp Refills carvedilol (COREG) 3.125 mg tablet [Pharmacy Med Name: CARVEDILOL TAB 3.125MG]180 tablet 3 Sig: TAKE 1 TABLET TWICE A DAY NETTA: No Refused By: MONICA GANNON Reason for Refusal: A Refill not appropriate Reason for Refusal Comment: issued refill on 02/19/2018 for 6.25mg dose. issued a new script on 02/19/2018 for 180 tablets and 3 refills forincreased dose of 6.25 mg twice daily.Please review and advise.Herb Evans As of Date: 06/20/2018 Noted Allergy ReactionBUSPAR (BUSPIRONE HCL) 08/16/2017 14 - Other: See Comments Comments: Lack of efficacy.CODEINE 07/06/2002 5 - Intolerance 8 - GI UpsetLIDOCAINE 02/08/2016 2 - Rash 4 - HivesLISINOPRIL 03/05/2014 7 - Swelling Comments: Angio edemaMORPHINE 06/18/2014 11 - Vomiting Comments: extreme nausea and vomitingPAXIL (PAROXETINE HCL) 07/18/2016 14 - Other: See Comments Comments: Made depression worsePREDNISONE 01/14/2015 14 - Other: See Comments Comments: heart racing and face was beet red.PROZAC (FLUOXETINE HCL) 07/18/2016 14 - Other: See Comments Comments: Made depression worseTAPE (ADHESIVE TAPE (ROSINS)) 02/08/2016 16 - UnknownWELLBUTRIN (BUPROPION HCL) 07/18/2016 14 - Other: See Comments Comments: Made depression worseZOLOFT (SERTRALINE HCL) 07/18/2016 14 - Other: See Comments Comments: Made depression worseDate Reviewed: 06/04/2018Reviewed by: Shanna ([facility]) [place] - Fully AssessedReason for Visit: Refill Request [94]Prescriptions as of 06/20/2018 Sig: SPIRONOLACTONE 100 MG TABLET TAKE ONE TABLET ONCE PER DAY * DIMETHYL FUMARATE 240 MG CAPS* Take 1 capsule by mouth twice* METFORMIN 500 MG TABLET Take 1 tablet by mouth twice * CLONAZEPAM 0.5 MG TABLET Take 1 tablet by mouth three * CARVEDILOL 6.25 MG TABLET Take 1 tablet by mouth twice * LEVOTHYROXINE 25 MCG TABLET Take 1/2 a tab daily Mon thro* LOSARTAN 25 MG TABLET Take 0.5 tablets by mouth onc* GEMFIBROZIL 600 MG TABLET Take 1 tablet by mouth twice * SYNTHROID 200 MCG TABLET TAKE 1 TABLET DAILY BEFORE BR* SYNTHROID 25 MCG TABLET TAKE 1/2 TABLET ONCE DAILY TA* DROSPIRENONE 3 MG-ETHINYL EST* Take 1 tablet by mouth as dir* DROSPIRENONE 3 MG-ETHINYL EST* Take 1 tablet by mouth once d* QUETIAPINE 100 MG TABLET Take 1 tablet by mouth daily * DIMETHYL FUMARATE 120 MG (14)* Take 120 mg by mouth twice da* BIOTIN 5 MG TABLET Take 5,000 mg by mouth once d* OMEGA-3 FATTY ACIDS 1,000 MG * Take 1,000 mg by mouth once d* CHOLECALCIFEROL (VITAMIN D3) * Take 1,000 Units by mouth onc* VITAMIN B-6 100 MG TABLET One daily. MULTI-VITAMIN TABLET 1 tablet daily CALCIUM 500 MG TABLET 1 tablet dailyProblem List As Of Date 06/20/2018 Noted Resolved Postprocedural hypothyroidism [E89.0] INVALID FOR* Priority: A Multiple sclerosis (HCC) [G35] INVALID FOR* Priority: A More... Mixed hyperlipidemia [E78.2] INVALID FOR* Priority: A Generalized anxiety disorder [F41.1] INVALID FOR* Priority: A Cardiomyopathy (HCC) [I42.9] INVALID FOR* Priority: A More... PCOS (polycystic ovarian syndrome) [E28.2] INVALID FOR* Priority: C Dysmetabolic syndrome [E88.81] INVALID FOR* Priority: A Migraine with aura and without status migrainos* Priority: A More... Encounter for gynecological examination without*INVALID FOR* Priority: E More... LBBB (left bundle branch block) [I44.7] INVALID FOR* Priority: B Well adult exam [Z00.00] INVALID FOR* Priority: E More... 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 Essential hypertension [I10] INVALID FOR* Priority: AEncounter Number: [id number] Status:Closed by MONICA GANNON on 06/20/18 [facility] CNOVon 06-04-2018 OV Office Visit (AGCARDPOB) ROMI LOCKWOOD ([id number]) 1985 FDate Time Provider Department06/04/18 3:00 PM SHANNA JARRETT (ALANNAH) AGCARDPOB During your visit today, we recorded the following information about you: Pulse Blood pressure Weight Height 92/minute 112/80 123.1 kg 1.753 Shannaaron Monae CMA 06/04/2018 3:12 PM SignedMrsRocio Rodrigez is here for a yearly follow up. No cardiac complaints today.Juventino Andersen APRN.CNP 06/04/2018 3:33 PM SignedHeart FailureWhat is heart failure?Heart failure (HF) means the heart is not pumping blood as well as it should.It may pump at a different speed, pump blood with less force, or pump lessblood with each heartbeat. When less blood is flowing out of the heart to thebody, muscles and other tissues may not get enough oxygen. The kidneys may notwork as well to remove excess fluid in the form of urine. As a result, bloodbacks up into the blood vessels. The extra fluid seeps into the lungs or otherparts of the body. Fluid in the lungs makes it hard to breathe. Fluid seepinginto other parts of the body causes swelling. When there is too much fluid inthe body, it puts more strain on the heart.Heart failure is one of the most common causes of heart-related illness anddeath in the [place].What is the cause?A number of things can cause heart failure, such as:-Narrowing or blockage in the arteries that bring blood to the heart muscle-Infection of the heart-Heart attack-High blood pressure-Heart valve problems-Genetic problems with the heart tzqmzs-Dpnynqjhde-Bmkal carlos-Lung diseaseProblems that may worsen or trigger heart failure, especially if your heartmuscle is weak, include:-Severe anemia (a low level of red blood cells)-An overactive or underactive thyroid eecpo-Ciypjrbgo-Y heartbeat that is too fast or too slow-Too much salt or fluid in the diet-Working your body too hard with exercise or daily activities-Emotional stressWhat are the symptoms?The symptoms of heart failure may include:-Shortness of breath or trouble breathing, at first just during exercise, thenwith any activity, and finally even when you are resting-Waking up at night with trouble breathing or being unable to lie flat in bedbecause of shortness of etxnff-Ucgkqobr-Ulpxdyq ankles, feet, and legs-Weight gain caused by extra fluid in the body-Feeling tired most of the time and not able to do your usual activities-Lack of appetite and feeling sick to your stomach-Feeling like your heart is racing or fluttering-Lightheadedn ess or faintingHow is it diagnosed?Your healthcare provider will ask about your symptoms and examine you. Testsmay include:-Chest X-ray-An ECG (also called an EKG), which measures and records your heartbeat-Blood or urine tests-Echocardiogram, which uses sound waves (ultrasound) to see how well your heartmuscle is pumpingHow is it treated?Heart failure can be treated and managed. The goals of treatment are:-Help your heart so it doesn?t have to work as hard-Help your heart pump blood better-Get rid of extra water in your bodyYour healthcare provider may prescribe medicine to relax the blood vessels andlower blood pressure. Then the heart doesn?t have to work as hard. You may needto take 2 or more medicines to treat your heart failure. It may take severalweeks or months to find the best treatment for you.In some cases, heart failure can get better and even be cured. For example, ifit is caused by an infection, it may be cured with treatment of the infection.Heart failure due to coronary artery disease is generally not cured and mostoften gets worse over time. However, carefully following your treatment plancan:-Slow down the worsening of heart failure and help you live longer-Help prevent trips to the hospital-Help you feel better and do moreHow can I take care of myself?If you have heart failure, there are things you can do to take care of yourselfnow and prevent problems in the future.Follow your treatment plan and know how to take your medicines.-Work as a partner with your provider. This means having regular providervisits and following your treatment plan.-Follow the directions that come with your medicine, including informationabout food or alcohol. Make sure you know how and when to take your medicine.Do not take more or less than you are supposed to take.-Many medicines have side effects. A side effect is a symptom or problem thatis caused by the medicine. Ask your healthcare provider or pharmacist what sideeffects your medicine may cause and what you should do if you have sideeffects. Ask if you should avoid some nonprescription medicines.Don?t smoke, eat a healthy diet, and watch your weight and blood pressure.-Quit smoking if you are a smoker.-Lose weight if you are overweight and eat a healthy diet.?Follow a low-salt (low-sodium) diet if it is recommended by your provider. Toomuch salt makes your body keep too much water and makes your heart have to workharder.?Follow your healthcare provider's advice about how much liquid you shoulddrink.?Ask your provider if you should avoid drinking alcohol. Alcohol can weakenyour heart or may worsen heart failure. Also, some of your medicines may notwork well if you drink alcohol.-Weigh yourself every morning after you use the bathroom but before you eat ordrink anything. Weighing yourself every day helps you know if extra fluid isbuilding up in your body. A buildup of fluid is a sign that your heart failuremay be getting worse. Weight gain can let you know about fluid buildup beforeyou start having swelling.Keep track of your weight in a diary or on the calendar. Ask your healthcareprovider when you should report weight gain. Letting your provider know aboutweight gain when it first happens can save you a trip to the emergency room ora stay in the hospital.-Also check your pulse and blood pressure every day. Learn how to take your ownblood pressure or have a family member learn how to take it.Be as physically active as you can.-How active you can be depends on how bad the heart failure is. A program ofgentle exercise helps most people. Your provider can tell you what level ofexercise is right for you. Exercise helps your heart and body get stronger. Italso improves your blood flow and energy level. Don?t exercise outdoors if itis very hot, cold, humid, or smoggy. Balance exercise with rest. Make sure thatyour activities don?t make you too tired or short of breath. Take rest breaksduring the day.-Avoid getting very hot or cold because it may make your heart work harder.Try to lessen the stress in your life.-Anxiety and anger can cause a fast heart rate and high blood pressure. If youneed help with this, ask your healthcare provider.Protect yourself against infections.-Get a flu shot every year. When you have heart failure, you should not get thenasal spray vaccine (FluMist).-Get the pneumococcal shot.Ask your healthcare provider:-How and when you will hear your test results-How long it will take to recover-What activities you should avoid and when you can return to your normalactivities-How to take care of yourself at home-What symptoms or problems you should watch for and what to do if you have themMake sure you know when you should come back for a checkup.How can I help prevent heart failure?You can prevent this disease with a heart-healthy lifestyle:-Eat a healthy diet and keep a healthy weight.-Stay fit with the right kind of exercise for you.-Decrease stress.-Don?t smoke.-Limit your use of alcohol.Talk to your healthcare provider about your personal and family medical historyand your lifestyle habits. This will help you know what you can do to loweryour risk for heart failure.Developed by [employer].Published by [employer].Copyright ?2014 [employer] and/or one of its subsidiaries. All rightsreserved.Shanna Jarrett APRN.PSYCHIATRY PHYSICIAN 06/04/2018 3:51 PM SignedSubjectiveHPIMrsRocio Rodrigez is a 32-year-old female former patient of Dr. Riley now is beingseen and followed by Dr. Faith with a past medical history significant fordilated cardiomyopathy occurred approximately 10 years ago after her fatherpassed away from sudden cardiac . She was in her 20s at the time. This wasthought to have been a stress reaction to her father's passing away however LVdid not normalize. According to the record she's not had an ischemic evaluationshe has been maintained on medical therapy and doing well.She was last seen and evaluated by Dr. Faith a year ago. She presents today infollow-up. She is offering no complaints of chest pain, tachycardiapalpitations , syncope nor near syncope. She also has some depression as well asmultiple sclerosis and chronic left bundle branch block.Last echocardiogram appears to be last year with her ejection fraction ofapproximately 40%.Buspar [Buspirone Hcl]; Codeine; Lidocaine; Lisinopril; Morphine; Paxil[Paroxetine Hcl]; Prednisone; Prozac [Fluoxetine Hcl]; Tape [Adhesive Tape(Rosins)]; Wellbutrin [Bupropion Hcl]; Zoloft [Sertraline Hcl]Current Outpatient Prescriptions:spironola ctone (ALDACTONE) 100 mg tablet TAKE ONE TABLET ONCE PER DAY AT THESAME TIME EVERY DAY Disp: 90 tablet Rfl: 3dimethyl fumarate (TECFIDERA) 240 mg cpDR Take 1 capsule by mouth twice daily.Disp: 180 capsule Rfl: 3metFORMIN (GLUCOPHAGE) 500 mg tablet Take 1 tablet by mouth twice daily withmeals. Disp: 180 tablet Rfl: 5clonazePAM (KLONOPIN) 0.5 mg tablet Take 1 tablet by mouth three times dailyfor 360 days. Disp: 270 tablet Rfl: 3carvedilol (COREG) 6.25 mg tablet Take 1 tablet by mouth twice daily. Disp: 180tablet Rfl: 3levothyroxine (LEVOXYL) 25 mcg tablet Take 1/2 a tab daily Sat through Saturdayand none on Saturday, Take on empty stomach. Along with 200 mcg Disp: 45 tabletRfl: 3losartan (COZAAR) 25 mg tablet Take 0.5 tablets by mouth once daily. Disp: 45tablet Rfl: 3gemfibrozil (LOPID) 600 mg tablet Take 1 tablet by mouth twice daily. Disp: 180tablet Rfl: 3SYNTHROID 200 mcg tablet TAKE 1 TABLET DAILY BEFORE BREAKFAST ALONG WITH 25MCGTABLET Disp: 90 tablet Rfl: 1SYNTHROID 25 mcg tablet TAKE 1/2 TABLET ONCE DAILY TAKE ON EMPTY STOMACHALONGWITH 200MCG Disp: 45 tablet Rfl: 0Drospirenone-Ethinyl Estradiol (BENJIE, 28,) 3-0.03 mg per tablet Take 1 tabletby mouth as directed. Disp: 3 Package Rfl: 4Drospirenone-Ethinyl Estradiol (BENJIE, 28,) 3-0.03 mg per tablet Take 1 tabletby mouth once daily. Disp: 1 Package Rfl: 0QUEtiapine (SEROQUEL) 100 mg tablet Take 1 tablet by mouth daily at bedtime.Disp: 90 tablet Rfl: 3dimethyl fumarate (TECFIDERA) 120 mg (14)- 240 mg (46) cpDR Starter Kit [id number] mg by mouth twice daily for 7 day, then increase to 240 mg twice dailythereafter Disp: 60 capsule Rfl: 0biotin 5 mg tab Take 5,000 mg by mouth once daily. Disp: Rfl:omega-3 fatty acids 1,000 mg cap Take 1,000 mg by mouth once daily. Disp: Rfl:Cholecalciferol, Vitamin D3, 1,000 unit cap Take 1,000 Units by mouth oncedaily. Disp: Rfl:pyridoxine hcl(VITAMIN B-6 100 MG TAB) One daily. Disp: 0 Rfl: 0MULTI-VITAMIN TAB 1 tablet daily Disp: Rfl: 0CALCIUM 500 MG TAB 1 tablet daily Disp: Rfl: 0No current facility-administered medications for this visit.Social History Marital status: Spouse name: Daljit Years of education: 16 Number of children: 0Social History Main Topics Smoking status: Never Smoker Smokeless tobacco: Never Used Alcohol use: Yes Comment: seldom Drug use: No Sexual activity: Yes Partners with: Male control/protection: PillOther Topics ConcernCaffeine Concern Yes Comment:1 cup daily (reg) coffeeSpecial Diet No Comment:regular diet/avoid carbsExercise Yes Comment:walks daily/swims 2-3 x weeklySocial History Narrative 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 Right. Lives alone.PAST MEDICAL HISTORYDiagnosis Date- Cardiomyopathy (HCC) 01/2008 apical balloon syndrome broken heart disease stress reaction to losing herfather- Chest pain- Chronic systolic heart failure (HCC)- Depression 07/18/2016- Dysmetabolic syndrome 03/14/2016- Essential hypertension 08/16/2017- Generalized anxiety disorder 03/14/2016- Migraine with aura and without status migrainosus, not intractable Has not had since her teen's- Mixed hyperlipidemia 03/14/2016- Multiple sclerosis (HCC) 12/16/[address] 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- PCOS (polycystic ovarian syndrome) 03/14/2016- PMH - PAST MEDICAL HISTORY OF radioactive iiodinePAST SURGICAL HISTORYProcedure Laterality Date- ANKLE ARTHROSCOPY/SURGERY Right- ECHO LVEF 37%- ECHOCARDIOGRAM 05/29/2017- PAST SURGICAL HISTORY OF arthroscopic knee surgery on right- PAST SURGICAL HISTORY OF reconstructive to right leg for dog bite- PAST SURGICAL HISTORY OF TMJ surgery which helped head pain.- PAST SURGICAL HISTORY OF Jaw arthroscopy/surgery- PAST SURGICAL HISTORY OF 2012 breast reduction- PAST SURGICAL HISTORY OF 01/15/2017 micodiscectomy [id number] HistoryProblem Relation Age of Onset- other (diabetes mellitus) Mother- Coronary Artery Disease Father from [place] age 60- other (Sudden ) Father- COPD Maternal Grandmother- other (atrial fibrillation) Maternal Grandmother- other (strokes) Maternal Grandmother- other (brain tumor) Other- Miscarriages / Stillbirths Other- other (multiple sclerosis) Other mothers cousin with MSBP 112/80 Pulse 92 Ht 5' 9 (1.75m) Wt 271 lb 6.4 oz (123.1kg) SpO2 98% BMI 40.06 kg/(m2).Review of SystemsConstitutional: Negative.HENT: Negative.Eyes: Negative.Respiratory: Negative.Cardiovascular : Negative.Gastrointestin al: Negative.Genitourinary: Negative.Musculoskeleta l: Negative.Skin: Negative.Neurological: Negative.Endo/Heme/Alexander rgies: Negative.Psychiatric/Be havioral: Negative.ObjectivePhysi zack ExamConstitutional: She is oriented to person, place, and time and well-developed,well-nou rished, and in no distress.HENT:Head: Normocephalic.Neck: Normal range of motion. Neck supple.Cardiovascular: Normal rate, regular rhythm, normal heart sounds and intactdistal pulses.Pulmonary/Chest: Effort normal and breath sounds normal.Abdominal: Soft. Bowel sounds are normal.Musculoskeletal: Normal range of motion.Neurological: She is alert and oriented to person, place, and time.Skin: Skin is warm and dry.Psychiatric: Mood, memory, affect and judgment normal. impression/recommendati ons;1. Dilated cardiomyopathy-she's been on medical therapy and doing well. Sheappears euvolemic on exam [place] [employer] functional class II. Sheremains on beta karlie as well as ARB and Aldactone therapy.2. Chronic left bundle branch block-this is unchanged and has been present foryears.3. Multiple sclerosis-she does follow with neurology.4. Hyperlipidemia-lipids are managed by primary care.5. Thyroid disease she is on replacement therapy.6. Polycystic ovarian syndrome-she's been treated with metformin.In summary Mrs. Rodrigez presents in annual follow-up appointment offering no newcardiac complaints. She will continue with her current medical therapy andfollow-up with Dr. Faith in approximately a year.Referring Provider: SELF [[id number]]Allergies As of Date: 06/04/2018 Noted Allergy ReactionBUSPAR (BUSPIRONE HCL) 08/16/2017 14 - Other: See Comments Comments: Lack of efficacy.CODEINE 07/06/2002 5 - Intolerance 8 - GI UpsetLIDOCAINE 02/08/2016 2 - Rash 4 - HivesLISINOPRIL 03/05/2014 7 - Swelling Comments: Angio edemaMORPHINE 06/18/2014 11 - Vomiting Comments: extreme nausea and vomitingPAXIL (PAROXETINE HCL) 07/18/2016 14 - Other: See Comments Comments: Made depression worsePREDNISONE 01/14/2015 14 - Other: See Comments Comments: heart racing and face was beet red.PROZAC (FLUOXETINE HCL) 07/18/2016 14 - Other: See Comments Comments: Made depression worseTAPE (ADHESIVE TAPE (ROSINS)) 02/08/2016 16 - UnknownWELLBUTRIN (BUPROPION HCL) 07/18/2016 14 - Other: See Comments Comments: Made depression worseZOLOFT (SERTRALINE HCL) 07/18/2016 14 - Other: See Comments Comments: Made depression worseDate Reviewed: 06/04/2018Reviewed by: Shanna Jarrett - Fully AssessedReason for Visit: CARD Follow Up Annual [1232]Primary Visit Diagnosis:Cardiomyopath y, unspecified type (HCC) [I42.9] Other Visit Diagnoses:Essential hypertension [I10] LBBB (left bundle branch block) [I44.7]Order(s):spirono lactone (ALDACTONE) 100 mg tabletTAKE ONE TABLET ONCE PER DAY AT THE SAME TIME EVERY DAYDisp: 90 tabletRfl: 3Prescriptions as of 06/04/2018 Sig: SPIRONOLACTONE 100 MG TABLET TAKE ONE TABLET ONCE PER DAY * DIMETHYL FUMARATE 240 MG CAPS* Take 1 capsule by mouth twice* METFORMIN 500 MG TABLET Take 1 tablet by mouth twice * CLONAZEPAM 0.5 MG TABLET Take 1 tablet by mouth three * CARVEDILOL 6.25 MG TABLET Take 1 tablet by mouth twice * LEVOTHYROXINE 25 MCG TABLET Take 1/2 a tab daily Mon thro* LOSARTAN 25 MG TABLET Take 0.5 tablets by mouth onc* GEMFIBROZIL 600 MG TABLET Take 1 tablet by mouth twice * SYNTHROID 200 MCG TABLET TAKE 1 TABLET DAILY BEFORE BR* SYNTHROID 25 MCG TABLET TAKE 1/2 TABLET ONCE DAILY TA* DROSPIRENONE 3 MG-ETHINYL EST* Take 1 tablet by mouth as dir* DROSPIRENONE 3 MG-ETHINYL EST* Take 1 tablet by mouth once d* QUETIAPINE 100 MG TABLET Take 1 tablet by mouth daily * DIMETHYL FUMARATE 120 MG (14)* Take 120 mg by mouth twice da* BIOTIN 5 MG TABLET Take 5,000 mg by mouth once d* OMEGA-3 FATTY ACIDS 1,000 MG * Take 1,000 mg by mouth once d* CHOLECALCIFEROL (VITAMIN D3) * Take 1,000 Units by mouth onc* VITAMIN B-6 100 MG TABLET One daily. MULTI-VITAMIN TABLET 1 tablet daily CALCIUM 500 MG TABLET 1 tablet dailyProblem List As Of Date 06/04/2018 Noted Resolved Postprocedural hypothyroidism [E89.0] INVALID FOR* Priority: A Multiple sclerosis (HCC) [G35] INVALID FOR* Priority: A More... Mixed hyperlipidemia [E78.2] INVALID FOR* Priority: A Generalized anxiety disorder [F41.1] INVALID FOR* Priority: A Cardiomyopathy (HCC) [I42.9] INVALID FOR* Priority: A More... PCOS (polycystic ovarian syndrome) [E28.2] INVALID FOR* Priority: C Dysmetabolic syndrome [E88.81] INVALID FOR* Priority: A Migraine with aura and without status migrainos* Priority: A More... Encounter for gynecological examination without*INVALID FOR* Priority: E More... LBBB (left bundle branch block) [I44.7] INVALID FOR* Priority: B Well adult exam [Z00.00] INVALID FOR* Priority: E More... 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 Essential hypertension [I10] INVALID FOR* Priority: A Other instructions from your clinician: Heart Failure What is heart failure? Heart failure (HF) means the heart is not pumping blood as well as it should. It may pump at a different speed, pump blood with less force, or pump less blood with each heartbeat. When less blood is flowing out of the heart to the body, muscles and other tissues may not get enough oxygen. The kidneys may not work as well to remove excess fluid in the form of urine. As a result, blood backs up into the blood vessels. The extra fluid seeps into the lungs or other parts of the body. Fluid in the lungs makes it hard to breathe. Fluid seeping into other parts of the body causes swelling. When there is too much fluid in the body, it puts more strain on the heart. Heart failure is one of the most common causes of heart-related illness and in the . What is the cause? A number of things can cause heart failure, such as: -Narrowing or blockage in the arteries that bring blood to the heart muscle -Infection of the heart -Heart attack -High blood pressure -Heart valve problems -Genetic problems with the heart muscle -Alcoholism -Diabetes -Lung disease Problems that may worsen or trigger heart failure, especially if your heart muscle is weak, include: -Severe anemia (a low level of red blood cells) -An overactive or underactive thyroid gland -Infection -A heartbeat that is too fast or too slow -Too much salt or fluid in the diet -Working your body too hard with exercise or daily activities -Emotional stress What are the symptoms? The symptoms of heart failure may include: -Shortness of breath or trouble breathing, at first just during exercise, then with any activity, and finally even when you are resting -Waking up at night with trouble breathing or being unable to lie flat in bed because of shortness of breath -Coughing -Swollen ankles, feet, and legs -Weight gain caused by extra fluid in the body -Feeling tired most of the time and not able to do your usual activities -Lack of appetite and feeling sick to your stomach -Feeling like your heart is racing or fluttering -Lightheadedness or fainting How is it diagnosed? Your healthcare provider will ask about your symptoms and examine you. Tests may include: -Chest X-ray -An ECG (also called an EKG), which measures and records your heartbeat -Blood or urine tests -Echocardiogram, which uses sound waves (ultrasound) to see how well your heart muscle is pumping How is it treated? Heart failure can be treated and managed. The goals of treatment are: -Help your heart so it doesn?t have to work as hard -Help your heart pump blood better -Get rid of extra water in your body Your healthcare provider may prescribe medicine to relax the blood vessels and lower blood pressure. Then the heart doesn?t have to work as hard. You may need to take 2 or more medicines to treat your heart failure. It may take several weeks or months to find the best treatment for you. In some cases, heart failure can get better and even be cured. For example, if it is caused by an infection, it may be cured with treatment of the infection. Heart failure due to coronary artery disease is generally not cured and most often gets worse over time. However, carefully following your treatment plan can: -Slow down the worsening of heart failure and help you live longer -Help prevent trips to the hospital -Help you feel better and do more How can I take care of myself? If you have heart failure, there are things you can do to take care of yourself now and prevent problems in the future. Follow your treatment plan and know how to take your medicines. -Work as a partner with your provider. This means having regular provider visits and following your treatment plan. -Follow the directions that come with your medicine, including information about food or alcohol. Make sure you know how and when to take your medicine. Do not take more or less than you are supposed to take. -Many medicines have side effects. A side effect is a symptom or problem that is caused by the medicine. Ask your healthcare provider or pharmacist what side effects your medicine may cause and what you should do if you have side effects. Ask if you should avoid some nonprescription medicines. Don?t smoke, eat a healthy diet, and watch your weight and blood pressure. -Quit smoking if you are a smoker. -Lose weight if you are overweight and eat a healthy diet. ?Follow a low-salt (low-sodium) diet if it is recommended by your provider. Too much salt makes your body keep too much water and makes your heart have to work harder. ?Follow your healthcare provider's advice about how much liquid you should drink. ?Ask your provider if you should avoid drinking alcohol. Alcohol can weaken your heart or may worsen heart failure. Also, some of your medicines may not work well if you drink alcohol. -Weigh yourself every morning after you use the bathroom but before you eat or drink anything. Weighing yourself every day helps you know if extra fluid is building up in your body. A buildup of fluid is a sign that your heart failure may be getting worse. Weight gain can let you know about fluid buildup before you start having swelling. Keep track of your weight in a diary or on the calendar. Ask your healthcare provider when you should report weight gain. Letting your provider know about weight gain when it first happens can save you a trip to the emergency room or a stay in the hospital. -Also check your pulse and blood pressure every day. Learn how to take your own blood pressure or have a family member learn how to take it. Be as physically active as you can. -How active you can be depends on how bad the heart failure is. A program of gentle exercise helps most people. Your provider can tell you what level of exercise is right for you. Exercise helps your heart and body get stronger. It also improves your blood flow and energy level. Don?t exercise outdoors if it is very hot, cold, humid, or smoggy. Balance exercise with rest. Make sure that your activities don?t make you too tired or short of breath. Take rest breaks during the day. -Avoid getting very hot or cold because it may make your heart work harder. Try to lessen the stress in your life. -Anxiety and anger can cause a fast heart rate and high blood pressure. If you need help with this, ask your healthcare provider. Protect yourself against infections. -Get a flu shot every year. When you have heart failure, you should not get the nasal spray vaccine (FluMist). -Get the pneumococcal shot. Ask your healthcare provider: -How and when you will hear your test results -How long it will take to recover -What activities you should avoid and when you can return to your normal activities -How to take care of yourself at home -What symptoms or problems you should watch for and what to do if you have them Make sure you know when you should come back for a checkup. How can I help prevent heart failure? You can prevent this disease with a heart-healthy lifestyle: -Eat a healthy diet and keep a healthy weight. -Stay fit with the right kind of exercise for you. -Decrease stress. -Don?t smoke. -Limit your use of alcohol. Talk to your healthcare provider about your personal and family medical history and your lifestyle habits. This will help you know what you can do to lower your risk for heart failure. Developed by [employer]. Published by [employer]. Copyright ?2014 [employer] and/or one of its subsidiaries. All rights reserved.Visit Notes:>> Tarah Monae SatJun 04, 2018 3:09 PM Status: SignedMrs. Peg is here for a yearly follow up. No cardiac complaints today.Tarah Monae CMAPrescriptions ordered this encounter Disp Refills Start End SPIRONOLACTONE 100 MG TABLET 90 t* 3 06/04/2018 Sig: TAKE ONE TABLET ONCE PER DAY AT THE SAME TIME EVERY DAYMedications Discontinued During This Encounter benzonatate (TESSALON PERLES) 100 mg* 30 c* 0 10/31/2017 06/04/2018 Route: ORAL Sig: Take 1 capsule by mouth three times daily as needed for Cough. Patient not taking: Reported on 06/04/2018 Disc: Course of therapy completed albuterol HFA (VENTOLIN HFA) 90 mcg/* 1 In* 0 10/31/2017 06/04/2018 Route: INHALATION Sig: Inhale 2 Puffs as instructed every 6 hours as needed. Patient not taking: Reported on 06/04/2018 Disc: Course of therapy completed spironolactone (ALDACTONE) 100 mg ta* 2 01/02/2018 06/04/2018 Class: Historical Med Sig: TAKE ONE TABLET ONCE PER DAY AT THE SAME TIME EVERY DAY Disc: Reason for discontinue is not on file.Disposition: Return in about 1 year (around 06/04/2019).Follow-up and Disposition History RecordedLetter TextEncounter Number: [id number] Status:Closed by SHANNA JARRETT CNP on 06/04/18 [facility] PROGRESSon 06-04-2018 Protein mass conc HNO ID: [id number]: Shanna Rollinservice: (none)Author Type: Nurse PractitionerType: Progress NotesFiled: 06/04/2018 3:51 PMNote Text:SubjectiveHPIMrsRocio Rodrigez is a 32-year-old female former patient of Dr. Riley now isbeing seen and followed by Dr. Faith with a past medical historysignificant for dilated cardiomyopathy occurred approximately 10 years agoafter her father from sudden cardiac . She was in her 18sat the time. This was thought to have been a stress reaction to herfather's passing away however LV did not normalize. According to therecord she's not had an ischemic evaluation she has been maintained onmedical therapy and doing well.She was last seen and evaluated by Dr. Faith a year ago. She presentstoday in follow-up. She is offering no complaints of chest pain,tachycardia palpitations, syncope nor near syncope. She also has somedepression as well as multiple sclerosis and chronic left bundle branchblock.Last echocardiogram appears to be last year with her ejection fraction ofapproximately 40%.Buspar [Buspirone Hcl]; Codeine; Lidocaine; Lisinopril; Morphine; Paxil[Paroxetine Hcl]; Prednisone; Prozac [Fluoxetine Hcl]; Tape [Adhesive Tape(Rosins)]; Wellbutrin [Bupropion Hcl]; Zoloft [Sertraline Hcl]Current Outpatient Prescriptions:spironola ctone (ALDACTONE) 100 mg tablet TAKE ONE TABLET ONCE PER DAY ATTHE SAME TIME EVERY DAY Disp: 90 tablet Rfl: 3dimethyl fumarate (TECFIDERA) 240 mg cpDR Take 1 capsule by mouth twicedaily. Disp: 180 capsule Rfl: 3metFORMIN (GLUCOPHAGE) 500 mg tablet Take 1 tablet by mouth twice dailywith meals. Disp: 180 tablet Rfl: 5clonazePAM (KLONOPIN) 0.5 mg tablet Take 1 tablet by mouth three timesdaily for 360 days. Disp: 270 tablet Rfl: 3carvedilol (COREG) 6.25 mg tablet Take 1 tablet by mouth twice daily.Disp: 180 tablet Rfl: 3levothyroxine (LEVOXYL) 25 mcg tablet Take 1/2 a tab daily Sat throughSaturday and none on Saturday, Take on empty stomach. Along with 200 mcgDisp: 45 tablet Rfl: 3losartan (COZAAR) 25 mg tablet Take 0.5 tablets by mouth once daily. Disp:45 tablet Rfl: 3gemfibrozil (LOPID) 600 mg tablet Take 1 tablet by mouth twice daily.Disp: 180 tablet Rfl: 3SYNTHROID 200 mcg tablet TAKE 1 TABLET DAILY BEFORE BREAKFAST ALONG [id number] TABLET Disp: 90 tablet Rfl: 1SYNTHROID 25 mcg tablet TAKE 1/2 TABLET ONCE DAILY TAKE ON EMPTY STOMACHALONGWITH 200MCG Disp: 45 tablet Rfl: 0Drospirenone-Ethinyl Estradiol (BENJIE, 28,) 3-0.03 mg per tablet Take 1tablet by mouth as directed. Disp: 3 Package Rfl: 4Drospirenone-Ethinyl Estradiol (BENJIE, 28,) 3-0.03 mg per tablet Take 1tablet by mouth once daily. Disp: 1 Package Rfl: 0QUEtiapine (SEROQUEL) 100 mg tablet Take 1 tablet by mouth daily atbedtime. Disp: 90 tablet Rfl: 3dimethyl fumarate (TECFIDERA) 120 mg (14)- 240 mg (46) cpDR Starter KitTake 120 mg by mouth twice daily for 7 day, then increase to 240 mg twicedaily thereafter Disp: 60 capsule Rfl: 0biotin 5 mg tab Take 5,000 mg by mouth once daily. Disp: Rfl:omega-3 fatty acids 1,000 mg cap Take 1,000 mg by mouth once daily. Disp:Rfl:Cholecalcifero l, Vitamin D3, 1,000 unit cap Take 1,000 Units by mouth oncedaily. Disp: Rfl:pyridoxine hcl(VITAMIN B-6 100 MG TAB) One daily. Disp: 0 Rfl: 0MULTI-VITAMIN TAB 1 tablet daily Disp: Rfl: 0CALCIUM 500 MG TAB 1 tablet daily Disp: Rfl: 0No current facility-administered medications for this visit.Social History Marital status: Spouse name: Daljit Years of education: 16 Number of children: 0Social History Main Topics Smoking status: Never Smoker Smokeless tobacco: Never Used Alcohol use: Yes Comment: seldom Drug use: No Sexual activity: Yes Partners with: Male control/protection: PillOther Topics ConcernCaffeine Concern Yes Comment:1 cup daily (reg) coffeeSpecial Diet No Comment:regular diet/avoid carbsExercise Yes Comment:walks daily/swims 2-3 x weeklySocial History Narrative 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 Right. Lives alone.PAST MEDICAL HISTORYDiagnosis Date- Cardiomyopathy (HCC) 01/2008 apical balloon syndrome broken heart disease stress reaction to losingher father- Chest pain- Chronic systolic heart failure (HCC)- Depression 07/18/2016- Dysmetabolic syndrome 03/14/2016- Essential hypertension 08/16/2017- Generalized anxiety disorder 03/14/2016- Migraine with aura and without status migrainosus, not intractable Has not had since her teen's- Mixed hyperlipidemia 03/14/2016- Multiple sclerosis (HCC) 12/16/[address] 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- PCOS (polycystic ovarian syndrome) 03/14/2016- PMH - PAST MEDICAL HISTORY OF radioactive iiodinePAST SURGICAL HISTORYProcedure Laterality Date- ANKLE ARTHROSCOPY/SURGERY Right- ECHO LVEF 37%- ECHOCARDIOGRAM 05/29/2017- PAST SURGICAL HISTORY OF arthroscopic knee surgery on right- PAST SURGICAL HISTORY OF reconstructive to right leg for dog bite- PAST SURGICAL HISTORY OF TMJ surgery which helped head pain.- PAST SURGICAL HISTORY OF Jaw arthroscopy/surgery- PAST SURGICAL HISTORY OF 2012 breast reduction- PAST SURGICAL HISTORY OF 01/15/2017 micodiscectomy [id number] HistoryProblem Relation Age of Onset- other (diabetes mellitus) Mother- Coronary Artery Disease Father from [place] age 60- other (Sudden ) Father- COPD Maternal Grandmother- other (atrial fibrillation) Maternal Grandmother- other (strokes) Maternal Grandmother- other (brain tumor) Other- Miscarriages / Stillbirths Other- other (multiple sclerosis) Other mothers cousin with MSBP 112/80 Pulse 92 Ht 5' 9 (1.75m) Wt 271 lb 6.4 oz (123.1kg) SpO2 98% BMI 40.06 kg/(m2).Review of SystemsConstitutional: Negative.HENT: Negative.Eyes: Negative.Respiratory: Negative.Cardiovascular : Negative.Gastrointestin al: Negative.Genitourinary: Negative.Musculoskeleta l: Negative.Skin: Negative.Neurological: Negative.Endo/Heme/Alexander rgies: Negative.Psychiatric/Be havioral: Negative.ObjectivePhysi zack ExamConstitutional: She is oriented to person, place, and time andwell-developed, well-nourished, and in no distress.HENT:Head: Normocephalic.Neck: Normal range of motion. Neck supple.Cardiovascular: Normal rate, regular rhythm, normal heart sounds andintact distal pulses.Pulmonary/Chest: Effort normal and breath sounds normal.Abdominal: Soft. Bowel sounds are normal.Musculoskeletal: Normal range of motion.Neurological: She is alert and oriented to person, place, and time.Skin: Skin is warm and dry.Psychiatric: Mood, memory, affect and judgment normal. impression/recommendati ons;1. Dilated cardiomyopathy-she's been on medical therapy and doing well.She appears euvolemic on exam [place] [employer] functional classII. She remains on beta karlie as well as ARB and Aldactone therapy.2. Chronic left bundle branch block-this is unchanged and has been presentfor years.3. Multiple sclerosis-she does follow with neurology.4. Hyperlipidemia-lipids are managed by primary care.5. Thyroid disease she is on replacement therapy.6. Polycystic ovarian syndrome-she's been treated with metformin.In summary Mrs. Rodrigez presents in annual follow-up appointment offeringno new cardiac complaints. She will continue with her current medicaltherapy and follow-up with Dr. Faith in approximately a year. Normal [facility] Vital Signs Date Time Vital Sign Value Performing Clinician Facility 02-12-2025 10:54-0400 Body height 177.8 cm [employer] Work Phone: [facility] 02-12-2025 10:54-0400 Body mass index (BMI) [Ratio] 37.88 kg/m2 [employer] Work Phone: [facility] 02-12-2025 10:54-0400 Body weight 119.75 kg [employer] Work Phone: [facility] 02-12-2025 10:54-0400 Diastolic blood pressure 72 mm[Hg] [employer] Work Phone: [facility] 02-12-2025 10:54-0400 Heart rate 69 /min [employer] Work Phone: [facility] 02-12-2025 10:54-0400 SaO2% (BldA) [Mass fraction] 98 % Elder Chao PA-C Work Phone: [facility] 02-12-2025 10:54-0400 Systolic blood pressure 103 mm[Hg] Elder Chao PA-C Work Phone: [facility] 11-26-2024 07:02-0500 Body mass index (BMI) [Ratio] 40.46 kg/m2 Kady Sol APRN.PSYCHIATRY PHYSICIAN Work Phone: [facility] 11-26-2024 07:02-0500 Body weight 125.19 kg Kady Sol APRN.PSYCHIATRY PHYSICIAN Work Phone: [facility] 11-26-2024 07:02-0500 Diastolic blood pressure 70 mm[Hg] Kady Sol APRN.PSYCHIATRY PHYSICIAN Work Phone: [facility] 11-26-2024 07:02-0500 Systolic blood pressure 122 mm[Hg] Kady Sol APRN.PSYCHIATRY PHYSICIAN Work Phone: [facility] 11-21-2024 10:02-0500 Body mass index (BMI) [Ratio] 40.61 kg/m2 Isael Fish MD Work Phone: [facility] 11-21-2024 10:02-0500 Body temperature 97.5 [degF] Isael Fish MD Work Phone: [facility] 11-21-2024 10:02-0500 Body weight 125.65 kg Isael Fish MD Work Phone: [facility] 11-21-2024 10:02-0500 Diastolic blood pressure 68 mm[Hg] Isael Fish MD Work Phone: [facility] 11-21-2024 10:02-0500 Heart rate 27 /min Isael Fish MD Work Phone: [facility] 11-21-2024 10:02-0500 Respiratory rate 16 /min Isael Fish MD Work Phone: [facility] 11-21-2024 10:02-0500 Systolic blood pressure 110 mm[Hg] Isael Fish MD Work Phone: [facility] 03-18-2024 16:27-0400 Body height 175.9 cm Isael Fish MD Work Phone: [facility] 03-18-2024 16:27-0400 Body mass index (BMI) [Ratio] 40.02 kg/m2 Isael Fish MD Work Phone: [facility] 03-18-2024 16:27-0400 Body weight 123.83 kg Isael Fish MD Work Phone: [facility] 03-18-2024 16:27-0400 Diastolic blood pressure 80 mm[Hg] Isael Fish MD Work Phone: [facility] 03-18-2024 16:27-0400 Heart rate 72 /min Isael Fish MD Work Phone: [facility] 03-18-2024 16:27-0400 Respiratory rate 16 /min Isael Fish MD Work Phone: [facility] 03-18-2024 16:27-0400 Systolic blood pressure 130 mm[Hg] Isael Fish MD Work Phone: [facility] 09-11-2023 16:47-0500 Diastolic blood pressure 84 mm[Hg] Isael Fish MD Work Phone: [facility] 09-11-2023 16:47-0500 Systolic blood pressure 128 mm[Hg] Isael Fish MD Work Phone: [facility] 09-11-2023 15:56-0500 Body weight 136.08 kg Isael Fish MD Work Phone: [facility] 09-11-2023 15:56-0500 Heart rate 80 /min Isael Fish MD Work Phone: [facility] 09-11-2023 15:56-0500 Respiratory rate 18 /min Isael Fish MD Work Phone: [facility] 03-06-2023 15:49-0400 Body height 177.8 cm Isael Fish MD Work Phone: [facility] 03-06-2023 15:49-0400 Body weight 130.64 kg Isael Fish MD Work Phone: [facility] 03-06-2023 15:49-0400 Diastolic blood pressure 84 mm[Hg] Isael Fish MD Work Phone: [facility] 03-06-2023 15:49-0400 Heart rate 78 /min Isael Fish MD Work Phone: [facility] 03-06-2023 15:49-0400 Respiratory rate 14 /min Isael Fish MD Work Phone: [facility] 03-06-2023 15:49-0400 Systolic blood pressure 134 mm[Hg] Isael Fish MD Work Phone: [facility] 09-21-2022 19:18-0500 Body height 175.26 cm [facility] Work Phone: 09-21-2022 19:18-0500 Body mass index (BMI) [Ratio] 38.9 kg/m2 [facility] Work Phone: 09-21-2022 19:18-0500 Body temperature 97.9 [degF] [facility] Work Phone: 09-21-2022 19:18-0500 Body weight 119.74 kg [facility] Work Phone: 09-21-2022 19:18-0500 Diastolic blood pressure 107 mm[Hg] [facility] Work Phone: 09-21-2022 19:18-0500 Heart rate 97 /min [facility] Work Phone: 09-21-2022 19:18-0500 Respiratory rate 18 /min [facility] Work Phone: 09-21-2022 19:18-0500 SaO2% (BldA) [Mass fraction] 98 % [facility] Work Phone: 09-21-2022 19:18-0500 Systolic blood pressure 154 mm[Hg] [facility] Work Phone: 08-15-2022 18:35-0500 Diastolic blood pressure 86 mm[Hg] Isael Fish MD Work Phone: [facility] 08-15-2022 18:35-0500 Systolic blood pressure 128 mm[Hg] Isael Fish MD Work Phone: [facility] 08-15-2022 17:46-0500 Body weight 119.75 kg Isael Fish MD Work Phone: [facility] 08-15-2022 17:46-0500 Heart rate 82 /min Isael Fish MD Work Phone: [facility] 08-15-2022 17:46-0500 Respiratory rate 16 /min Isael Fish MD Work Phone: [facility] 06-20-2022 19:33-0400 Body temperature 99.19 [degF] Isael Fish MD Work Phone: [facility] 06-20-2022 19:33-0400 Body weight 120.2 kg Isael Fish MD Work Phone: [facility] 06-20-2022 19:33-0400 Diastolic blood pressure 86 mm[Hg] Isael Fish MD Work Phone: [facility] 06-20-2022 19:33-0400 Heart rate 88 /min Isael Fish MD Work Phone: [facility] 06-20-2022 19:33-0400 Respiratory rate 16 /min Isael Fish MD Work Phone: [facility] 06-20-2022 19:33-0400 Systolic blood pressure 126 mm[Hg] Isael Fish MD Work Phone: [facility] 02-28-2022 07:59-0400 Body height 177.8 cm Kady Sol APRN.PSYCHIATRY PHYSICIAN Work Phone: [facility] 02-28-2022 07:59-0400 Body weight 117.94 kg Kady Sol NIGHT FILLER.PSYCHIATRY PHYSICIAN Work Phone: [facility] 02-28-2022 07:59-0400 Diastolic blood pressure 76 mm[Hg] Kady Sol APRN.PSYCHIATRY PHYSICIAN Work Phone: [facility] 02-28-2022 07:59-0400 Systolic blood pressure 130 mm[Hg] Kady Sol APRN.PSYCHIATRY PHYSICIAN Work Phone: [facility] 01-16-2022 09:00-0400 Body temperature 96.8 [degF] Dr. Isael Fish Work Phone: [facility] Work Phone: 01-16-2022 09:00-0400 Diastolic blood pressure 80 mm[Hg] Dr. Isael Fish Work Phone: [facility] Work Phone: 01-16-2022 09:00-0400 Heart rate 97 /min Dr. Isael Fish Work Phone: [facility] Work Phone: 01-16-2022 09:00-0400 Respiratory rate 16 /min Dr. Isael Fish Work Phone: [facility] Work Phone: 01-16-2022 09:00-0400 SaO2% (BldA) [Mass fraction] 98 % Dr. Isael Fish Work Phone: [facility] Work Phone: 01-16-2022 09:00-0400 Systolic blood pressure 122 mm[Hg] Dr. Isael Fish Work Phone: [facility] Work Phone: 12-27-2021 10:41-0400 Body height 175.3 cm Elder Chao PA-C Work Phone: [facility] 12-27-2021 10:41-0400 Body weight 121.56 kg Elder Chao PA-C Work Phone: [facility] 03-23-2022 10:41-0400 Diastolic blood pressure 81 mm[Hg] Elder Chao PA-C Work Phone: [facility] 12-27-2021 10:41-0400 Heart rate 77 /min Elder Chao PA-C Work Phone: [facility] 12-27-2021 10:41-0400 Systolic blood pressure 130 mm[Hg] Elder Chao PA-C Work Phone: [facility] 11-15-2021 15:39-0500 Body height 177.[address] Isael Fish Work Phone: [facility] Work Phone: 11-15-2021 15:39-0500 Body mass index (BMI) [Ratio] 38.5 kg/m2 Dr. Isael Fish Work Phone: [facility] Work Phone: 11-15-2021 15:39-0500 Body temperature 97.3 [degF] Dr. Isael Fish Work Phone: [facility] Work Phone: 11-15-2021 15:39-0500 Body weight 122.[address] Isael Fish Work Phone: [facility] Work Phone: 11-15-2021 15:39-0500 Diastolic blood pressure 86 mm[Hg] Dr. Isael Fish Work Phone: [facility] Work Phone: 11-15-2021 15:39-0500 Heart rate 101 /min Dr. Isael Fish Work Phone: [facility] Work Phone: 11-15-2021 15:39-0500 Respiratory rate 18 /min Dr. Isael Fish Work Phone: [facility] Work Phone: 11-15-2021 15:39-0500 SaO2% (BldA) [Mass fraction] 97 % Dr. Isael Fish Work Phone: [facility] Work Phone: 11-15-2021 15:39-0500 Systolic blood pressure 148 mm[Hg] Dr. Isael Fish Work Phone: [facility] Work Phone: Encounters Encounter Date Encounter Type Care Provider Facility Start: 04-21-2025 ambulatory ROBERTA STROUD Facility:[facility] Start: 03-29-2025 End: 03-29-2025 ambulatory Isael Fish Facility:[facility] Start: 02-12-2025 End: 02-12-2025 Patient encounter procedure Elder Chao PA-C Work Phone: [facility] Comment on above: Multiple sclerosis ( HCC) (Primary Dx) Start: 02-12-2025 End: 02-12-2025 ambulatory ISAEL FISH Facility:[facility] Start: 02-02-2025 End: 02-02-2025 Refill Isael Fish MD Work Phone: [facility] Comment on above: Refill Request Start: 01-21-2025 End: 01-21-2025 ambulatory Isael Fish Facility:[facility] Start: 01-18-2025 End: 01-18-2025 ambulatory Isael Fish Facility:[facility] Start: 12-31-2024 End: 01-04-2025 ambulatory Elder LONDONO-C Work Phone: [facility] Start: 12-31-2024 End: 01-04-2025 Follow-up encounter Elder LONDONO-C Work Phone: [facility] Comment on above: Test and Medication follow up Start: 12-28-2024 End: 01-06-2025 ambulatory Elder LONDONO-C Work Phone: [facility] Comment on above: Test and Medication Start: 11-26-2024 End: 11-26-2024 ambulatory KADY SOL Facility:[facility] Start: 11-26-2024 End: 11-26-2024 Patient encounter procedure Kady Sol APRN.PSYCHIATRY PHYSICIAN Work Phone: OB/Gynecology Comment on above: Encounter for gyneco logical examination (general) (routine) without abnormal findings (Primary Dx); Surveillance for control, oral contraceptives Start: 11-26-2024 End: 11-26-2024 Patient encounter status Kady Cochranie PSYCHIATRY PHYSICIAN Work Phone: [facility] Start: 11-21-2024 End: 11-21-2024 ambulatory ISAEL FISH Facility:[facility] Start: 11-21-2024 End: 11-21-2024 Patient encounter procedure Isael Fish MD Work Phone: [facility] Comment on above: Essential hypertensi on (Primary Dx); Mixed hyperlipidemia; GERD without esophagitis; Postprocedural hypothyroidism; Chronic systolic heart failure (HCC); Cardiomyopathy, unspecified type (HCC); Takotsubo cardiomyopathy; Generalized anxiety disorder; Depression, unspecified depression type; Migraine with aura and without status migrainosus, not intractable; Multiple sclerosis (HCC); Obesity, Class III, BMI 40-49.9 (morbid obesity) (HCC); Encounter for screening mammogram for breast cancer; Acute otitis externa of right ear, unspecified type; Medication management; Encounter for screening for diabetes mellitus Start: 11-09-2024 End: 11-17-2024 E-mail encounter from caregiver Evelinagarett Peter HUNTER [facility] Start: 11-09-2024 End: 11-17-2024 Patient encounter procedure Evelina Peter MA [facility] Comment on above: Appointment Start: 11-06-2024 End: 11-06-2024 Refill Isael Fish MD Work Phone: [facility] Comment on above: Refill Request Start: 11-05-2024 End: 11-09-2024 Chart abstracting Isael Fish MD Work Phone: [facility] Comment on above: Outside Labs-[facility] Refill Request Start: 11-04-2024 End: 11-04-2024 ambulatory [place]ael Fish [place]: 11-04-2024 End: 11-04-2024 ambulatory Isael Fish Facility:[facility] Start: 09-07-2024 End: 09-07-2024 Refill Rich Nicholson APRN.PSYCHIATRY PHYSICIAN Work Phone: Neurology Comment on above: Refill Request Start: 09-01-2024 End: 09-01-2024 Telephone encounter Elder Chao PA-C Work Phone: [facility] Comment on above: Appointment (tried c alling patient to get her scheduled for a follow up but patients refused appointment) Start: 08-29-2024 End: 08-31-2024 Refill Isael Fish MD Work Phone: [facility] Comment on above: Refill Request Start: 07-22-2024 End: 07-22-2024 ambulatory Isael Fish [place] [place] Start: 07-14-2024 End: 07-15-2024 ambulatory Isael Fish MD Work Phone: [facility] Comment on above: Stomach bug? Start: 07-02-2024 End: 07-03-2024 ambulatory Elder Chao PA-C Work Phone: [facility] Comment on above: Lyrica Start: 06-22-2024 End: 06-22-2024 ambulatory Isael Fish [place] [place] Start: 05-29-2024 End: 06-03-2024 Refill Kady Sol APRN.PSYCHIATRY PHYSICIAN Work Phone: OB/Gynecology Comment on above: Refill Request Start: 05-25-2024 End: 05-25-2024 Refill Isael Fish MD Work Phone: [facility] Comment on above: Refill Request Start: 05-23-2024 End: 05-29-2024 ambulatory Isael Fish MD Work Phone: [facility] Comment on above: Vacation Refill and appt Start: 05-04-2024 Chart abstracting Evelina Peter MA [facility] Comment on above: Consult (Outside Con sult for Ortho ) Start: 04-30-2024 End: 04-30-2024 ambulatory Isael Fish Facility:[facility] Start: 04-30-2024 End: 04-30-2024 ambulatory Isael Fish Facility:[facility] Start: 04-21-2024 Telephone encounter Isael Fish MD Work Phone: [facility] Comment on above: Results (EMG/NCS) Start: 04-21-2024 ambulatory Isael Fish [place] [place] Start: 04-21-2024 End: 04-21-2024 ambulatory Isael Fish Facility:[facility] Start: 03-26-2024 Telephone encounter Isael Fish MD Work Phone: [facility] Comment on above: Results Start: 03-24-2024 Telephone encounter [facility] MD [facility] Comment on above: Results (/) Start: 03-18-2024 Encounter for genera l adult medical examination without abnormal findings ISAEL FISH [facility] Start: 03-18-2024 End: 03-18-2024 Patient encounter procedure Isael Fish MD Work Phone: [facility] Comment on above: Well adult exam (Gladis angelina Dx); Essential hypertension; Mixed hyperlipidemia; Postprocedural hypothyroidism; GERD without esophagitis; Migraine with aura and without status migrainosus, not intractable; Chronic systolic heart failure (HCC); Cardiomyopathy, unspecified type (HCC); Takotsubo cardiomyopathy; Multiple sclerosis (HCC); Generalized anxiety disorder; Depression, unspecified depression type; Obesity, Class III, BMI 40-49.9 (morbid obesity) (HCC); Muscle spasm; Numbness and tingling of left leg; Medication management Start: 03-18-2024 End: 03-18-2024 ambulatory ISAEL FISH Facility:[facility] Start: 03-18-2024 End: 03-18-2024 Patient encounter status Isael Fish MD Work Phone: [facility] Work Phone: Start: 03-17-2024 Chart abstracting Isael myers MD Work Phone: [facility] Comment on above: Outside Mammogram Start: 03-10-2024 Chart abstracting Isael myers MD Work Phone: [facility] Comment on above: Outside Labs-[facility] Start: 02-12-2024 ambulatory Isael castro MD Work Phone: [facility] Comment on above: Xray? Start: 02-05-2024 ambulatory Isael castro MD Work Phone: [facility] [place] Start: 01-28-2024 ambulatory Elder Oneal Work Phone: [facility] Comment on above: MRI Start: 01-28-2024 E-mail encounter fro m caregiver Elder Chao PA-C Work Phone: [facility] Start: 01-27-2024 Chart abstracting Isael myers MD Work Phone: [facility] Comment on above: Ext / Labs Start: 01-24-2024 Refill Kathie Narciso iverson APRN.PSYCHIATRY PHYSICIAN Work Phone: [facility] Comment on above: Refill Request Start: 11-11-2023 ambulatory Isael castro MD Work Phone: [facility] Comment on above: Annoying Cough ([employer] [place]) Start: 09-13-2023 Telephone encounter Isael Fish MD Work Phone: [facility] Comment on above: Results (X-ray/) Start: 09-11-2023 End: 09-11-2023 Patient encounter procedure Isael Fish MD Work Phone: [facility] Comment on above: Essential hypertensi on (Primary Dx); Mixed hyperlipidemia; Postprocedural hypothyroidism; GERD without esophagitis; Migraine with aura and without status migrainosus, not intractable; Multiple sclerosis (HCC); Generalized anxiety disorder; Depression, unspecified depression type; Chronic systolic heart failure (HCC); Cardiomyopathy, unspecified type (HCC); Rib pain; Obesity, Class III, BMI 40-49.9 (morbid obesity) (HCC); Medication management; Encounter for screening for diabetes mellitus; Impacted cerumen of right ear Start: 09-09-2023 Refill Romi Cher silva APRN.CNP Work Phone: [facility] Comment on above: Refill Request Start: 08-30-2023 Telephone encounter Isael Fish MD Work Phone: [facility] Comment on above: Results Start: 06-13-2023 Chart abstracting Isael myers MD Work Phone: [facility] Comment on above: ext results (MRI and Labs) Start: 05-22-2023 Refill Binggarett Eller on PA-C Work Phone: [facility] Comment on above: Refill Request Start: 05-15-2023 Refill Isael castro MD Work Phone: [facility] Comment on above: Refill Request Start: 03-30-2023 Refill Bing Eller on PA-C Work Phone: [facility] Comment on above: Refill Request Start: 03-06-2023 End: 03-06-2023 Patient encounter procedure Isael Fish MD Work Phone: [facility] Comment on above: Well adult exam (Gladis angelina Dx); Essential hypertension; Mixed hyperlipidemia; Postprocedural hypothyroidism; GERD without esophagitis; Generalized anxiety disorder; Depression, unspecified depression type; Migraine with aura and without status migrainosus, not intractable; Takotsubo cardiomyopathy; Cardiomyopathy, unspecified type (HCC); Chronic systolic heart failure (HCC); Multiple sclerosis (HCC); Obesity, Class III, BMI 40-49.9 (morbid obesity) (HCC); PCOS (polycystic ovarian syndrome) Start: 03-06-2023 End: 03-06-2023 Patient encounter status Isael Fish MD Work Phone: [facility] Start: 02-15-2023 MC Get Medical Advice Isael Fish MD Work Phone: [facility] Comment on above: Orders and FYI Start: 02-12-2023 Chart abstracting Isael myers MD Work Phone: [facility] Start: 02-04-2023 ambulatory Isael castro MD Work Phone: [facility] Start: 02-04-2023 Patient encounter procedure Isael Fish MD Work Phone: [facility] Comment on above: Dermo Referral Start: 02-01-2023 End: 02-01-2023 ambulatory Elder Chao PA-C Work Phone: [facility] Comment on above: Multiple sclerosis, relapsing-remitting (HCC) Start: 02-01-2023 End: 02-01-2023 Telemedicine consultation with patient Elder Chao PA-C Work Phone: [facility] Start: 01-23-2023 Chart abstracting Isael myers MD Work Phone: [facility] Comment on above: Results Start: 01-11-2023 ambulatory Elder Chao P A-C Work Phone: [facility] Comment on above: labs Start: 01-11-2023 E-mail encounter fro m caregiver Elder Chao PA-C Work Phone: [facility] Start: 01-10-2023 Chart abstracting Isael myers MD Work Phone: [facility] Comment on above: Outside [id number] Ordered Start: 01-05-2023 Refill Isael castro MD Work Phone: [facility] Comment on above: Refill Request Start: 12-24-2022 Refill Elder Young P A-C Work Phone: [facility] Comment on above: Refill Request Start: 12-23-2022 Refill Elder Young P A-C Work Phone: [facility] Comment on above: Refill Request Start: 12-19-2022 Refill Steph Bowen Work Phone: [facility] Comment on above: Refill Request Start: 12-14-2022 ambulatory Isael castro MD Work Phone: [facility] Comment on above: Sinus Season Start: 12-06-2022 ambulatory Elder Oneal Work Phone: [facility] Comment on above: MRI needed? Start: 11-16-2022 Chart abstracting Isael myers MD Work Phone: [facility] Comment on above: Results, Lab Start: 11-16-2022 Telephone encounter Evelina Gary HARRISON [facility] Comment on above: Results Start: 10-15-2022 ambulatory Isael castro MD Work Phone: [facility] Start: 10-15-2022 Patient encounter procedure Isael Fish MD Work Phone: [facility] Comment on above: Referral Start: 09-21-2022 End: 09-21-2022 Emergency department patient visit [facility]-Emergency Department Start: 09-20-2022 ambulatory Elder Oneal Work Phone: [facility] Comment on above: Chest tightness Start: 08-27-2022 ambulatory Isael castro MD Work Phone: [facility] Comment on above: BP Start: 08-15-2022 End: 08-15-2022 Refill Isael Fish MD Work Phone: [facility] Comment on above: Refill Request Essential hypertensi on (Primary Dx); Mixed hyperlipidemia; Postprocedural hypothyroidism; Migraine with aura and without status migrainosus, not intractable; GERD without esophagitis; Multiple sclerosis (HCC); Takotsubo cardiomyopathy; Chronic systolic heart failure (HCC); Generalized anxiety disorder; Obesity, Class II, BMI 35-39.9; Encounter for immunization Start: 08-14-2022 End: 08-14-2022 ambulatory [facility] Work Phone: Start: 08-14-2022 End: 08-14-2022 Patient encounter procedure [facility]-Laboratory Start: 08-14-2022 Registered Referred [facility] Start: 08-07-2022 MC Get Medical Advice Isael Fish MD Work Phone: [facility] Comment on above: Lab Orders Needed :) Start: 07-26-2022 Chart abstracting Elder Chao PA-C Work Phone: [facility] Comment on above: Forms (FMLA) Start: 07-24-2022 Refill Isael castro MD Work Phone: [facility] Comment on above: Refill Request Start: 07-09-2022 End: 07-09-2022 ambulatory [facility] Work Phone: Start: 07-09-2022 End: 07-09-2022 Patient encounter procedure [facility]-Radiology, [facility] Start: 06-25-2022 Telephone encounter Isael Fish MD Work Phone: [facility] Comment on above: Results Start: 06-21-2022 End: 06-21-2022 ambulatory [facility] Work Phone: Start: 06-21-2022 End: 06-21-2022 Patient encounter procedure [facility]Laboratory Start: 06-20-2022 End: 06-20-2022 Patient encounter procedure Isael Fish MD Work Phone: [facility] Comment on above: Epigastric pain (Gladis angelina Dx); RUQ pain Start: 06-18-2022 ambulatory Isael castro MD Work Phone: [facility] Comment on above: Labs and Other Start: 05-02-2022 Refill Isael castro MD Work Phone: [facility] Comment on above: Refill Request Start: 04-18-2022 Refill Steph Bowen Work Phone: [facility] Comment on above: Refill Request Start: 04-13-2022 Refill Isael castro MD Work Phone: [facility] Comment on above: Refill Request Start: 02-28-2022 End: 02-28-2022 Patient encounter procedure Kady Sol APRN.CNP Work Phone: OB/Gynecology Comment on above: Encounter for gyneco logical examination (general) (routine) without abnormal findings (Primary Dx); Surveillance for control, oral contraceptives; Obesity (BMI 35.0-39.9 without comorbidity) Start: 02-28-2022 End: 02-28-2022 Patient encounter status Kady Sol APRN.PSYCHIATRY PHYSICIAN Work Phone: OB/Gynecology Start: 01-31-2022 Patient encounter status Kady elder APRN.PSYCHIATRY PHYSICIAN Work Phone: [facility] Work Phone: Start: 01-26-2022 End: 01-26-[address] Isael Fish Work Phone: [facility]Laboratory Start: 01-23-[address] Isael Fish Work Phone: [facility] Start: 01-16-2022 End: 01-16-[address] Isael Fish Work Phone: [facility] Start: 01-15-2022 Refill Isael castro MD Work Phone: [facility] [place] Comment on above: Refill Request Opened In Error Start: 12-27-2021 End: 12-27-2021 Patient encounter procedure Elder Chao PA-C Work Phone: [facility] Comment on above: Vitamin D deficiency (Primary Dx); Multiple sclerosis, relapsing-remitting (HCC); Spasm Start: 12-13-2021 End: 12-13-[address] Isael Fish Work Phone: [facility] Start: 11-15-2021 End: 11-15-[address] Isael Fish Work Phone: [facility] Start: 10-19-2021 End: 10-19-[address] Isael Fish Work Phone: [facility] Start: 04-21-2021 Patient encounter status Lizz KIDDC Work Phone: [facility] Work Phone: Start: 06-04-2018 End: 06-04-2018 Patient encounter SHANNA JARRETT Facility:[facility] Start: 07-18-2016 Patient encounter status Sanket Chao VITALIY Work Phone: [facility] Work Phone: Procedures Date Procedure Procedure Detail Performing Clinician Start: 08-30-2023 FERRITIN BLD [facility] Provid er Start: 08-30-2023 Hemoglobin A1c/Hemoglobin.total in Blood [facility] Provider Start: 08-30-2023 INSULIN, FREE [facility] Provi teri Start: 08-30-2023 IRON PANEL (OUTSIDE) [facility] f Provider Start: 08-30-2023 Lipid panel [facility] Provid er Start: 08-30-2023 Thyrotropin [Units/v olume] in Serum or Plasma [facility] Start: 02-22-2023 CBC W/DIFF/PLT ([facility]) [facility] Provider Start: 02-22-2023 Comprehensive metabo lic 2000 panel - Serum or Plasma [facility] Provider Start: 02-22-2023 Hemoglobin A1c/Hemoglobin.total in Blood [facility] Provider Start: 02-22-2023 Lipid panel [facility] Provid er Start: 02-22-2023 MAGNESIUM BLD [facility] Provi teri Start: 02-22-2023 Thyrotropin [Units/v olume] in Serum or Plasma [facility] Provider Start: 02-22-2023 VITAMIN B12 BLOOD [facility] P rovider Start: 09-21-2022 Plain chest X-ray Start: 08-14-2022 BMP - EXTERNAL [facility] Prov ider Start: 08-14-2022 Cholesterol [Mass/vo lume] in Serum or Plasma [facility] Provider Start: 08-14-2022 Comprehensive metabo lic 2000 panel - Serum or Plasma [facility] Provider Start: 08-14-2022 LDH PLASMA [facility] Provid er Start: 08-14-2022 Lipid panel [facility] Provid er Start: 08-14-2022 Thyrotropin [Units/v olume] in Serum or Plasma [facility] Provider Start: 08-14-2022 URIC ACID BLOOD [facility] Pro vider Start: 07-09-2022 Diagnostic radiograp hy of upper gastrointestinal tract with serial films Start: 07-09-2022 Ultrasonography of abdomen Start: 01-23-2022 MRI of brain with contrast Dr. Isael Fish Work Phone: Start: 12-13-2021 US scan of thyroid Dr. Isael Fish Work Phone: Plan of Treatment Date Care Activity Detail Author Start: 09-03-2028 Urine microalbumin profile [facility] Start: 03-01-2028 HPV TESTING HPV TESTING [facility] Start: 03-01-2028 PAP TESTING PAP TESTING [facility] Start: 03-01-2028 Screening for malign ant neoplasm of cervix [facility] Start: 02-12-2026 BP Controlled (<130/80) BP Controlle d (<130/80) [facility] Start: 11-26-2025 BP Controlled (<130/80) BP Controlle d (<130/80) [facility] Start: 11-21-2025 Annual PCP Team Area Mechanic shahana Disease Visit Annual PCP Team Chronic Disease Visit [facility] Start: 11-21-2025 BP Controlled (<130/80) BP Controlle d (<130/80) [facility] Start: 05-21-2025 End: 05-21-2025 Patient encounter procedure [facility] Comment on above: physical Start: 05-07-2025 End: 08-06-2025 CBC W Auto Differential panel - Blood COMPLETE BLOOD COUNT AND DIFFERENTIAL Lab Routine Postprocedural hypothyroidism Expected: 05/07/2025, Expires: 08/06/2025 [facility] Comment on above: Expected: 05/07/2025 , Expires: 08/06/2025 Start: 05-07-2025 End: 08-06-2025 Cobalamin (Vitamin B12) [Mass/volume] in Serum or Plasma VITAMIN B12 Lab Routine GERD without esophagitis Medication management Expected: 05/07/2025, Expires: 08/06/2025 [facility] Comment on above: Expected: 05/07/2025 , Expires: 08/06/2025 Start: 05-07-2025 End: 08-06-2025 Comprehensive metabolic 2000 panel - Serum or Plasma COMPREHENSIVE METABOLIC PANEL Lab Routine Essential hypertension Mixed hyperlipidemia Expected: 05/07/2025, Expires: 08/06/2025 [facility] Comment on above: Expected: 05/07/2025 , Expires: 08/06/2025 Start: 05-07-2025 End: 08-06-2025 Hemoglobin A1c in Blood HEMOGLOBIN A1C Lab Routine Encounter for screening for diabetes mellitus Expected: 05/07/2025, Expires: 08/06/2025 [facility] Comment on above: Expected: 05/07/2025 , Expires: 08/06/2025 Start: 05-07-2025 End: 08-06-2025 LIPID PANEL, NONFASTING LIPID PANEL, NONFASTING Lab Routine Essential hypertension Mixed hyperlipidemia Expected: 05/07/2025, Expires: 08/06/2025 [facility] Comment on above: Expected: 05/07/2025 , Expires: 08/06/2025 Start: 05-07-2025 End: 08-06-2025 Magnesium [Mass/volume] in Serum or Plasma MAGNESIUM Lab Routine GERD without esophagitis Medication management Expected: 05/07/2025, Expires: 08/06/2025 [facility] Comment on above: Expected: 05/07/2025 , Expires: 08/06/2025 Start: 05-07-2025 End: 08-06-2025 Thyrotropin [Units/volume] in Serum or Plasma THYROID STIMULATING HORMONE Lab Routine Postprocedural hypothyroidism Expected: 05/07/2025, Expires: 08/06/2025 [facility] Comment on above: Expected: 05/07/2025 , Expires: 08/06/2025 Start: 05-07-2025 End: 08-06-2025 Urinalysis complete panel - Urine URINALYSIS, WITH MICROSCOPIC Lab Routine Essential hypertension Mixed hyperlipidemia Expected: 05/07/2025, Expires: 08/06/2025 [facility] Comment on above: Expected: 05/07/2025 , Expires: 08/06/2025 Start: 05-07-2025 ambulatory Ambulatory Facility:[facility] Start: 03-18-2025 Annual PCP Team Area Mechanic shahana Disease Visit Annual PCP Team Chronic Disease Visit [facility] Start: 03-13-2025 Screening for malign ant neoplasm of breast Mammogram Screening [facility] Start: 02-12-2025 End: 02-12-2025 Patient encounter procedure 02/12/2025 11:15 AM EDT Office Visit [facility] [address] [address] Elder Chao PA-C [address] [place] [address] Follow up, checking in and saying HI! :) [facility] Comment on above: Follow up, checking in and saying HI! :) Start: 11-26-2024 End: 11-26-2024 Patient encounter procedure 11/26/2024 7:00 AM EST Office Visit OB/Gynecology [address] [place] [address] Kady Sol APRN.PSYCHIATRY PHYSICIAN [address] 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 [facility] Comment on above: f/u in 1 year for an nual TRACTOR SWEEPER DRIVER exam Start: 11-21-2024 End: 11-21-2024 Patient encounter procedure 11/21/2024 9:40 AM EST Office Visit [facility] [address] [facility] [place] [address] Isael Fish MD [address] [facility] [place] [address] 6 month follow up [facility] Comment on above: 6 month follow up Start: 11-18-2024 End: 11-18-2024 Follow-up encounter 11/18/2024 2:40 PM EST [facility] [address] [facility] [place] [address] Isael Fish MD [address] [facility] [place] [address] General follow up [facility] Comment on above: General follow up Start: 09-23-2024 End: 09-23-2024 Patient encounter procedure 09/23/2024 2:40 PM EST Office Visit [facility] [address] [facility] [place], [place] [id number] Isael Fish MD [address] [place] [address] 6 month follow up [facility] Comment on above: 6 month follow up Start: 09-11-2024 Annual PCP Team Area Mechanic shahana Disease Visit Annual PCP Team Chronic Disease Visit [facility] Start: 09-04-2024 End: 12-04-2024 LIPID PANEL, NONFASTING LIPID PANEL, NONFASTING Lab Routine Essential hypertension Mixed hyperlipidemia Expected: 09/04/2024, Expires: 12/04/2024 [facility] Comment on above: Expected: 09/04/2024 , Expires: 12/04/2024 Start: 09-04-2024 End: 12-04-2024 Thyrotropin [Units/volume] in Serum or Plasma THYROID STIMULATING HORMONE Lab Routine Postprocedural hypothyroidism Expected: 09/04/2024, Expires: 12/04/2024 [facility] Comment on above: Expected: 09/04/2024 , Expires: 12/04/2024 Start: 06-16-2024 End: 06-16-2024 Patient encounter procedure 06/16/2024 4:00 PM EDT Office Visit OB/Gynecology [address] [place] [address] Kady Sol, NIGHT FILLER.PSYCHIATRY PHYSICIAN [address] [place] [address] f/u in 1 year for 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 [facility] Comment on above: f/u in 1 year for an nual TRACTOR SWEEPER DRIVER exam Start: 06-07-2024 Covid-19 Vaccine ( season) Covid-19 Vaccine ( season) [facility] Start: 06-07-2024 Influenza vaccination Influenza Vacc ine (#1) [facility] Start: 04-21-2024 End: 04-21-2024 Patient encounter procedure 04/21/2024 4:00 PM EDT Office Visit OB/Gynecology [address] [place] [address] Kady Sol, NIGHT FILLER.PSYCHIATRY PHYSICIAN [address] [place] [address] f/u in 1 year for 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 [facility] Comment on above: f/u in 1 year for an nual TRACTOR SWEEPER DRIVER exam Start: 04-20-2024 HPV TESTING HPV TESTING [facility] Start: 04-20-2024 PAP TESTING PAP TESTING [facility] Start: 03-18-2024 End: 03-18-2024 Patient encounter procedure 03/18/2024 4:00 PM EDT Office [facility] [place] [address] [facility] [place] [address] Isael Fish MD [address] [facility] [place] [address] Physical [facility] [place] Comment on above: Physical Start: 03-18-2024 End: 06-17-2024 Folate [Mass/volume] in Serum or Plasma FOLATE, SERUM Lab Routine Numbness and tingling of left leg Expected: 03/18/2024, Expires: 06/17/2024 [facility] Work Phone: Comment on above: Expected: 03/18/2024 , Expires: 06/17/2024 Start: 03-06-2024 ANNUAL PCP TEAM [employer] SHAHANA DISEASE VISIT ANNUAL PCP TEAM CHRONIC DISEASE VISIT [facility] Start: 03-03-2024 End: 03-03-2024 Patient encounter procedure 03/03/2024 4:00 PM EDT Office Visit OB/Gynecology [address] [place] [address] Kady Sol APRN.PSYCHIATRY PHYSICIAN [address] [place] [address] f/u in 1 year for 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 [facility] Comment on above: f/u in 1 year for an nual TRACTOR SWEEPER DRIVER exam Start: 02-28-2024 End: 05-29-2024 CBC W Auto Differential panel - Blood CBC + DIFF Lab Routine Postprocedural hypothyroidism Generalized anxiety disorder Expected: 02/28/2024, Expires: 05/29/2024 [facility] Work Phone: Comment on above: Expected: 02/28/2024 , Expires: 05/29/2024 Start: 02-28-2024 End: 05-29-2024 Cobalamin (Vitamin B12) [Mass/volume] in Serum or Plasma VITAMIN B12 BLOOD Lab Routine GERD without esophagitis Medication management Expected: 02/28/2024, Expires: 05/29/2024 [facility] Work Phone: Comment on above: Expected: 02/28/2024 , Expires: 05/29/2024 Start: 02-28-2024 End: 05-29-2024 Comprehensive metabolic 2000 panel - Serum or Plasma COMP METABOLIC PANEL Lab Routine Essential hypertension Mixed hyperlipidemia Expected: 02/28/2024, Expires: 05/29/2024 [facility] Work Phone: Comment on above: Expected: 02/28/2024 , Expires: 05/29/2024 Start: 02-28-2024 End: 05-29-2024 Hemoglobin A1c in Blood HGB A1C Lab Routine Encounter for screening for diabetes mellitus Expected: 02/28/2024, Expires: 05/29/2024 [facility] Work Phone: Comment on above: Expected: 02/28/2024 , Expires: 05/29/2024 Start: 02-28-2024 End: 05-29-2024 LIPID PANEL, NONFASTING LIPID PANEL, NONFASTING Lab Routine Essential hypertension Mixed hyperlipidemia Expected: 02/28/2024, Expires: 05/29/2024 [facility] Work Phone: Comment on above: Expected: 02/28/2024 , Expires: 05/29/2024 Start: 02-28-2024 End: 05-29-2024 Magnesium [Mass/volume] in Serum or Plasma MAGNESIUM BLD Lab Routine GERD without esophagitis Medication management Expected: 02/28/2024, Expires: 05/29/2024 [facility] Work Phone: Comment on above: Expected: 02/28/2024 , Expires: 05/29/2024 Start: 02-28-2024 End: 05-29-2024 Thyrotropin [Units/volume] in Serum or Plasma TSH BLD Lab Routine Postprocedural hypothyroidism Expected: 02/28/2024, Expires: 05/29/2024 [facility] Work Phone: Comment on above: Expected: 02/28/2024 , Expires: 05/29/2024 Start: 02-28-2024 End: 05-29-2024 Urinalysis complete panel - Urine URINALYSIS, WITH MICROSCOPIC Lab Routine Essential hypertension Mixed hyperlipidemia Expected: 02/28/2024, Expires: 05/29/2024 [facility] Work Phone: Comment on above: Expected: 02/28/2024 , Expires: 05/29/2024 Start: 11-01-2023 End: 01-31-2024 Thyrotropin [Units/volume] in Serum or Plasma TSH BLD Lab Routine Postprocedural hypothyroidism Expected: 11/01/2023, Expires: 01/31/2024 [facility] Work Phone: Comment on above: Expected: 11/01/2023 , Expires: 01/31/2024 Start: 08-23-2023 End: 10-23-2023 Hemoglobin A1c in Blood HGB A1C Lab Routine PCOS (polycystic ovarian syndrome) Expected: 08/23/2023, Expires: 10/23/2023 [facility] Work Phone: Comment on above: Expected: 08/23/2023 , Expires: 10/23/2023 Start: 08-23-2023 End: 10-23-2023 LIPID PANEL, NONFASTING LIPID PANEL, NONFASTING Lab Routine Essential hypertension Mixed hyperlipidemia Expected: 08/23/2023, Expires: 10/23/2023 [facility] Work Phone: Comment on above: Expected: 08/23/2023 , Expires: 10/23/2023 Start: 08-23-2023 End: 10-23-2023 Thyrotropin [Units/volume] in Serum or Plasma TSH BLD Lab Routine Postprocedural hypothyroidism Expected: 08/23/2023, Expires: 10/23/2023 [facility] Work Phone: Comment on above: Expected: 08/23/2023 , Expires: 10/23/2023 Start: 08-15-2023 ANNUAL PCP TEAM [employer] SHAHANA DISEASE VISIT ANNUAL PCP TEAM CHRONIC DISEASE VISIT [facility] Start: 2023 Mammography Mammogram Screening [facility] Start: 2023 Screening for malign ant neoplasm of breast Mammogram Screening [facility] Start: 06-20-2023 ANNUAL PCP TEAM [employer] SHAHANA DISEASE VISIT ANNUAL PCP TEAM CHRONIC DISEASE VISIT [facility] Start: 06-07-2023 Covid-19 Vaccine () Covid-19 Vaccine () [facility] Start: 06-07-2023 Influenza vaccination [facility] Start: 02-18-2023 End: 04-20-2023 CBC W Auto Differential panel - Blood CBC + DIFF Lab Routine Medication management Expected: 02/18/2023, Expires: 04/20/2023 [facility] Work Phone: Comment on above: Expected: 02/18/2023 , Expires: 04/20/2023 Start: 02-18-2023 End: 04-20-2023 Cobalamin (Vitamin B12) [Mass/volume] in Serum or Plasma VITAMIN B12 BLOOD Lab Routine GERD without esophagitis Medication management Expected: 02/18/2023, Expires: 04/20/2023 [facility] Work Phone: Comment on above: Expected: 02/18/2023 , Expires: 04/20/2023 Start: 02-18-2023 End: 04-20-2023 Comprehensive metabolic 2000 panel - Serum or Plasma COMP METABOLIC PANEL Lab Routine Essential hypertension Expected: 02/18/2023, Expires: 04/20/2023 [facility] Work Phone: Comment on above: Expected: 02/18/2023 , Expires: 04/20/2023 Start: 02-18-2023 End: 04-20-2023 Hemoglobin A1c in Blood HGB A1C Lab Routine Encounter for screening for diabetes mellitus Expected: 02/18/2023, Expires: 04/20/2023 [facility] Work Phone: Comment on above: Expected: 02/18/2023 , Expires: 04/20/2023 Start: 02-18-2023 End: 04-20-2023 LIPID PANEL, NONFASTING LIPID PANEL, NONFASTING Lab Routine Essential hypertension Expected: 02/18/2023, Expires: 04/20/2023 [facility] Work Phone: Comment on above: Expected: 02/18/2023 , Expires: 04/20/2023 Start: 02-18-2023 End: 04-20-2023 Magnesium [Mass/volume] in Serum or Plasma MAGNESIUM BLD Lab Routine GERD without esophagitis Medication management Expected: 02/18/2023, Expires: 04/20/2023 [facility] Work Phone: Comment on above: Expected: 02/18/2023 , Expires: 04/20/2023 Start: 02-18-2023 End: 04-20-2023 Thyrotropin [Units/volume] in Serum or Plasma TSH BLD Lab Routine Postprocedural hypothyroidism Expected: 02/18/2023, Expires: 04/20/2023 [facility] Work Phone: Comment on above: Expected: 02/18/2023 , Expires: 04/20/2023 Start: 02-18-2023 End: 04-20-2023 Urinalysis complete panel - Urine URINALYSIS, WITH MICROSCOPIC Lab Routine Essential hypertension Expected: 02/18/2023, Expires: 04/20/2023 [facility] Work Phone: Comment on above: Expected: 02/18/2023 , Expires: 04/20/2023 Start: 01-31-2023 ANNUAL PCP TEAM [employer] SHAHANA DISEASE VISIT ANNUAL PCP TEAM CHRONIC DISEASE VISIT [facility] Start: 12-07-2022 ANNUAL PCP TEAM [employer] WE[employer] SHAHANA DISEASE VISIT ANNUAL PCP TEAM CHRONIC DISEASE VISIT [facility] Start: 12-06-2022 End: 02-05-2023 CBC W Auto Differential panel - Blood CBC + DIFF Lab Routine Multiple sclerosis, relapsing-remitting (HCC) Expected: 12/06/2022, Expires: 02/05/2023 [facility] Work Phone: Comment on above: Expected: 12/06/2022 , Expires: 02/05/2023 Start: 12-06-2022 End: 02-05-2023 Hepatic function 1999 panel - Serum or Plasma HEPATIC FUNCTION PNL Lab Routine Multiple sclerosis, relapsing-remitting (HCC) Expected: 12/06/2022, Expires: 02/05/2023 [facility] Work Phone: Comment on above: Expected: 12/06/2022 , Expires: 02/05/2023 Start: 09-21-2022 [facility] Work Phone: Start: 08-07-2022 ONE PNEUMOVAX PRIOR TO AGE 63 ONE PNEUMOVAX PRIOR TO AGE 63 [facility] Comment on above: Postponed from 06/29 (Postponed To Appropriate Date) Start: 07-26-2022 PNEUMOCOCCAL (2 - PPSV23 if available, else PCV20) PNEUMOCOCCAL (2 - PPSV23 if available, else PCV20) [facility] Start: 07-26-2022 PNEUMOCOCCAL (2 - PPSV23 or PCV20) PNEUMOCOCCAL (2 - PPSV23 or PCV20) [facility] Start: 06-20-2022 End: 08-20-2022 Amylase [Enzymatic activity/volume] in Serum or Plasma AMYLASE BLD Lab Routine Epigastric pain Expected: 06/20/2022, Expires: 08/20/2022 [facility] Work Phone: Comment on above: Expected: 06/20/2022 , Expires: 08/20/2022 Start: 06-20-2022 End: 08-20-2022 CBC W Auto Differential panel - Blood CBC + DIFF Lab Routine Epigastric pain RUQ pain Expected: 06/20/2022, Expires: 08/20/2022 [facility] Work Phone: Comment on above: Expected: 06/20/2022 , Expires: 08/20/2022 Start: 06-20-2022 End: 08-20-2022 Hepatic function 2000 panel - Serum or Plasma HEPATIC FUNCTION PNL Lab Routine Epigastric pain RUQ pain Expected: 06/20/2022, Expires: 08/20/2022 [facility] Work Phone: Comment on above: Expected: 06/20/2022 , Expires: 08/20/2022 Start: 06-20-2022 End: 08-20-2022 Lipase [Enzymatic activity/volume] in Serum or Plasma LIPASE BLD Lab Routine Epigastric pain Expected: 06/20/2022, Expires: 08/20/2022 [facility] Work Phone: Comment on above: Expected: 06/20/2022 , Expires: 08/20/2022 Start: 06-07-2022 Influenza vaccination INFLUENZA (#1) [facility] Start: 01-25-2022 BP CONTROLLED (<130/80) BP CONTROLLE D (<130/80) [facility] Start: 12-27-2021 End: 02-26-2022 VITAMIN D 25 HYDROXY [facility] Work Phone: Comment on above: Expected: 12/27/2021 , Expires: 02/26/2022 Start: 10-20-2021 COVID-19 VACCINE (4 - Booster for Moderna series) COVID-19 VACCINE (4 - Booster for Moderna series) [facility] Start: 1985 HEPATITIS B (1 of 3 - 3-dose series) HEPATITIS B (1 of 3 - 3-dose series) [facility] End: 12-21-2025 DBT Breast - bilateral screening JONAS SCREENING W JOSIANE Radiology Routine Encounter for screening mammogram for breast cancer 1 Occurrences starting 11/21/2024 until 12/21/2025 [facility] Work Phone: Comment on above: 1 Occurrences starti ng 11/21/2024 until 12/21/2025 End: 03-06-2025 MG Breast Screening JONAS SCREENING Radiology Routine Encounter for screening mammogram for breast cancer 1 Occurrences starting 02/05/2024 until 03/06/2025 [facility] Work Phone: Comment on above: 1 Occurrences starti ng 02/05/2024 until 03/06/2025 End: 01-29-2026 MR Brain WO and W contrast IV MRI BRAIN WO/W IVCON Radiology Routine Multiple sclerosis, relapsing-remitting (HCC) 1 Occurrences starting 12/30/2024 until 01/29/2026 [facility] Work Phone: Comment on above: 1 Occurrences starti ng 12/30/2024 until 01/29/2026 End: 01-26-2023 Mri brain brain stem w/o w/contrast material MRI BRAIN WO/W IVCON Radiology Routine Multiple sclerosis, relapsing-remitting (HCC) 1 Occurrences starting 12/27/2021 until 01/26/2023 [facility] Work Phone: Comment on above: 1 Occurrences starti ng 12/27/2021 until 01/26/2023 End: 01-05-2024 Mri brain brain stem w/o w/contrast material MRI BRAIN WO/W IVCON Radiology Routine Multiple sclerosis, relapsing-remitting (HCC) 1 Occurrences starting 12/06/2022 until 01/05/2024 [facility] Work Phone: Comment on above: 1 Occurrences starti ng 12/06/2022 until 01/05/2024 Patient Education ED Chest Wall Pain, Costochondritis [facility] Work Phone: Patient referral [facility] Work Phone: Removal impacted cerumen irrigation/lvg unilat AMBULATORY EAR LAVAGE/IRRIGATION Procedures Routine Impacted cerumen of right ear Ordered: 09/11/2023 [facility] Work Phone: Comment on above: Ordered: 09/11/2023 TOXICOLOGY SCREEN, ROUTINE URINE TOXICOLOGY SCREEN, ROUTINE URINE Lab Routine Muscle spasm Medication management Ordered: 03/18/2024 [facility] Comment on above: Ordered: 03/18/2024 End: 10-10-2024 XR RIBS BILATERAL/CHEST 4V XR RIBS BILATERAL/CHEST 4V Radiology Routine Rib pain 1 Occurrences starting 09/11/2023 until 10/10/2024 [facility] Work Phone: Comment on above: 1 Occurrences starti ng 09/11/2023 until 10/10/[address] [facility] Immunizations Immunization Date Immunization Notes Care Provider Delmy farias 08-11-2024 COVID-19 vaccine, unspecified formulation Isael Fish MD Work Phone: [facility] 08-11-2024 influenza virus vaccine, unspecified formulation Isael Fish MD Work Phone: [facility] 07-26-2023 influenza, seasonal, injectable Isael Fish MD Work Phone: [facility] 07-26-2023 influenza virus vaccine, unspecified formulation Isael Fish MD Work Phone: [facility] 08-24-2022 influenza, seasonal, injectable [facility] Work Phone: 08-24-2022 influenza virus vaccine, unspecified formulation Isael Fish MD Work Phone: [facility] 08-17-2022 Covid Moderna Bivale nt Booster [facility] Work Phone: 08-15-2022 pneumococcal Conjuga te, unspecified formulation Isael Fish MD Work Phone: [facility] Work Phone: 08-15-2022 pneumococcal (PCV20) vaccine, 20 valent (PREVNAR 20) Isael Fish MD Work Phone: [facility] 08-25-2021 COVID-19 vaccine, fu ll dose (MODERNA) Elder Chao PA-C Work Phone: [facility] Work Phone: 08-11-2021 influenza, seasonal, injectable Elder Chao PA-C Work Phone: [facility] Work Phone: 08-10-2021 influenza, seasonal, injectable Dr. Isael Fish Work Phone: [facility] Work Phone: 07-26-2021 pneumococcal conjuga te vaccine, 13 valent Elder Chao PA-C Work Phone: [facility] 01-19-2021 COVID-19 vaccine, fu ll dose (MODERNA) Elder Young PA-C Work Phone: [facility] 10-05-2020 COVID-19 vaccine, fu ll dose (MODERNA) Elder Young PA-C Work Phone: [facility] 08-11-2020 influenza, seasonal, injectable Dr. Isael Fish Work Phone: [facility] Work Phone: 08-07-2019 influenza, seasonal, injectable Elder Young PA-C Work Phone: [facility] 07-02-2019 influenza, seasonal, injectable Dr. Isael Fish Work Phone: [facility] Work Phone: 09-03-2018 influenza, injectabl e, quadrivalent, contains preservative Elder Young PA-C Work Phone: [facility] 09-03-2018 tetanus toxoid, redu mercy diphtheria toxoid, and acellular pertussis vaccine, adsorbed Elder Young PA-C Work Phone: [facility] 08-09-2017 influenza, seasonal, injectable Elder Young PA-C Work Phone: [facility] 08-10-2016 influenza, injectabl e, quadrivalent, contains preservative Elder Young PA-C Work Phone: [facility] Work Phone: 01-05-2013 tetanus toxoid, redu mercy diphtheria toxoid, and acellular pertussis vaccine, adsorbed Isael Fish MD Work Phone: [facility] 05-07-2001 hepatitis B vaccine, pediatric or pediatric/adolescent dosage Isael Fish MD Work Phone: [facility] Payers Date Payer Category Payer Self-pay [id number] 2022 Private Health Insurance [id number] 2022 Private Health Insurance [id number] 2022 Private Health Insurance [id number] 2022 Unknown MMO MMO TPA [id number] 2022-Present [address] [place] [address] PPO [id number] 2019 Unknown [id number] Unknown [id number] Unknown [id number] Unknown ON LICENSE OF [facility] [id number] Unknown [id number] 62 Unknown [id number] 62 Unknown [id number] 62 Unknown [id number] 62 Unknown [id number] 62 Unknown [id number] 62 Unknown [id number] 62 Unknown [id number] 62 Unknown [id number] 62 Unknown [id number] 62 Unknown [id number] 62 Unknown [id number] 62 Unknown [id number] 62 Unknown [id number] 62 Social History Date Type Detail Facility Start: 05-17-2016 End: 06-20-2022 Tobacco smoking status NHIS Never smoked tobacco [facility] Start: 12-27-2021 End: 11-26-2024 Alcohol intake Current drinker of alcohol (finding) [facility] Start: 07-06-2020 End: 02-28-2023 History SDOH Alcohol Frequency 2 [facility] Start: 07-06-2020 End: 09-25-2021 History SDOH Alcohol Std Drinks 1 [facility] Start: 06-04-2018 History SDOH Alcohol Comment seldom [facility] Start: 05-12-2020 End: 02-28-2023 History SDOH Social Connections Phone 5 [facility] Start: 05-12-2020 End: 02-28-2023 History SDOH Social Connections Jewish 3 [facility] Start: 12-13-2019 Education 17 [facility] Start: 1985 Sex Assigned At Female [facility] Start: 12-17-2021 End: 08-15-2022 Exposure to SARS-CoV-2 (event) Not sure [facility] Start: 01-16-2022 End: 09-21-2022 Tobacco smoking status NHIS Unknown if ever smoked [facility] Work Phone: Start: 05-17-2016 End: 06-20-2022 Tobacco use and exposure Smokeless tobacco non-user [facility] Work Phone: Start: 02-28-2023 History SDOH Social Connections Phone 4 [facility] Start: 02-28-2023 End: 03-13-2024 History of Social function [facility] Start: 02-28-2023 End: 03-13-2024 Social connection and isolation panel [facility] Do you belong to any clubs or organizations such as sabianism groups, unions, fraternal or athletic groups, or school groups? Yes [facility] Are you now , , , , never or living with a partner? [facility] How often to you hav e a drink containing alcohol? Monthly or less [facility] How many standard dr inks containing alcohol do you have on a typical day? 1 or 2 [facility] How often do you hav e 6 or more drinks on 1 occasion? Never [facility] How hard is it for y ou to pay for the very basics like food, housing, medical care, and heating Not hard at all [facility] Do you feel stress - tense, restless, nervous, or anxious, or unable to sleep at night because your mind is troubled all the time - these days [OSQ] Only a little [facility] (I/We) worried margot aguirre (my/our) food would run out before (I/we) got money to buy more. Never true [facility] In the past 12 month s, was there a time when you were not able to pay the mortgage or rent on time? No [facility] Start: 11-21-2021 Gender identity Identifies as female gender (finding) [facility] Start: 11-21-2021 Sexual orientation Heterosexual (finding) [facility] Do you feel stress - tense, restless, nervous, or anxious, or unable to sleep at night because your mind is troubled all the time - these days [OSQ] To some extent [facility] Functional Status Date Assessment Result Facility 10-22-2014 Are you deaf, or do you have serious difficulty hearing No 10/22/2014 1:38 PM Cristina Lainez MA No [facility] 10-22-2014 Are you blind, or do you have serious difficulty seeing, even when wearing glasses No 10/22/2014 1:38 PM Cristina Lainez MA No [facility] 10-22-2014 Do you have serious difficulty walking or climbing stairs No 10/22/2014 1:38 PM Cristina Lainez MA No [facility] 10-22-2014 Do you have difficul ty dressing or bathing No 10/22/2014 1:38 PM Cristina Lainez MA No [facility] 10-22-2014 Because of a physica l, mental, or emotional condition, do you have difficulty doing errands alone such as visiting a physician's office or shopping No 10/22/2014 1:38 PM Cristina Lainez MA No [facility] Mental Status Date Assessment Result Facility 09-21-2022 Cognitive function Level Of Cons ciousness Awake;Alert;Appropriate;Fol lows Commands [facility] Work Phone: 10-22-2014 Because of a physica l, mental, or emotional condition, do you have serious difficulty concentrating, remembering, or making decisions No 10/22/2014 1:38 PM Cristina Lainez MA No [facility] Clinical Notes 06-04-2018 to 02-12-2025 Elder Chao PA-C - 02/12/2025 11:15 AM EDTTelephone Encounter - Marina Davila LPN - 02/02/2025 11:58 AM EDTTelephone Encounter - Marina Davila LPN - 02/02/2025 11:58 AM EDT Note Date & Type Note Facility 02-12-2025 History of Presen t illness Narrative Images from the original note were not included. [facility] FOLLOWUP/ESTABLISHED PATIENT VISIT PRINCIPAL NEUROLOGIC DIAGNOSIS: Multiple Sclerosis [facility] FOLLOWUP VISIT MS DISEASE HISTORY: Date of onset: apr-2009 Date of diagnosis: April-2009 Disease course from Onset; RIS with active MRI in past. h/o chronic migraines and 2 fatty masses were found on her brain, was having annual MRI monitoring and one of the MRIs showed lesions. Current MS Disease Therapy: Tecfidera (started August 2017) Previous MS Disease Therapies: - Avonex since 2008 - 07/2014-due to MRI progression - copaxone 40 mg caused exhaustion after each Saturday injection fatigue had to call off work. Has never had IV steroids, had oral prednisone and it was discontinued due to side effects heart was racing, I was beet red. - copaxone 20 mg started 09/14/2014 (breakthrough disease) - dimethyl fumarate 09/2020- 05/2021 (stopped due to GI intolerance) Last MRI brain: 01/18/23 MRI cervical and thoracic : 11/24/20 CHIEF COMPLAINT: Follow-up on MS disease modifying therapy - Virtual Visit INTERVAL HISTORY: Usual treating team: Efrem --> Mauro/Heath The patient is accompanied by self. The patient was last seen 02/01/23, currently taking DMF . More affordable now. Since the patient's last visit the patient reports overall feeling stable. Started semaglutide - end of Aug and switched to tirzepetide about 1 month ago - lost about 35-40 lbs - mild gerd - food noise decreased Saw cardiology in January 2025 for follow-up Lyrica continues to be helpful for hug sensations Seeing pain management for back - increased to Lyrica 100 mg BID (but stayed at 50 mg in morning, 100 mg qhs) - did get epidural shots in May after pain was elevated and it was helpful Does take melatonin for sleep - stopped seroquel about 1 year - feels less foggy since stopping Swimming and walking for exercise Did have cellulitis on right knee after a fall in March 2024 Sensory disruption (burning) in left arm and legs and feet Cramping in feet/calves - has baclofen 5 mg but makes very sleepy - takes klonopin 0.5 mg BID 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 - couldn't squeeze a twenty-nine palms correctly the other day SUBJECTIVE & REVIEW OF SYSTEMS: Neuro-QoL Functions (higher=better functioning) Flowsheet Row [facility] from 12/29/2019 in [facility] Office Visit from 04/25/2018 in [facility] Office Visit from 08/14/2017 in [facility] Upper Extremity Domain T Score 50 56.84 50.03 Lower Extremity Domain T Score 57 62.28 62.28 Cognitive Function Domain T Score 37 46.85 46.85 Positive Affect Well Being T Score -- 63.61 57.39 Ability To Participate In Social Roles T Score 42 47.04 54.53 Satisfaction With Social Roles T Score 41 50.14 49.2 Neuro-QoL Symptoms (higher=worse symptoms) Flowsheet Row Distance Health from 12/29/2019 in [facility] Office Visit from 04/25/2018 in [facility] Office Visit from 08/14/2017 in [facility] Sleep Domain T Score 60 55.63 54.3 Fatigue Domain T Score 64 64.84 52.3 Anxiety Domain T Score 72 64.58 65.23 Depression Domain T Score 55 50.36 47.97 Stigma Domain T Score 51 50.07 48.56 Emotional Behavior Dyscontrol T Score -- 50.82 47.39 *NeuroQoL is a multi-domain patient-reported quality of life questionnaire. PHQ-9 Flowsheet Row Office Visit from 03/18/2024 in [facility] Office Visit from 03/06/2023 in [facility] PHQ-9 Score 3 7 *PHQ-9 is a questionnaire for depressive symptoms, with scores 0-4 indicating none, 5-9 mild, 10-14 moderate, 15-19 moderately severe, and 20-27 severe symptoms. PROMIS-10 Flowsheet Row Office Visit from 11/21/2024 in [facility] Appointment from 11/18/2024 in [facility] Global Physical Health T Score 47.7 47.7 Global Mental Health T Score 59 59 0-10 Standard Pain Scale 3 3 *PROMIS-10 is a patient-reported quality of life measure, typically reported as physical and mental domains. Here scores are expressed as percentiles, where the lowest possible score is one, the highest possible score is 99, and 50 is average. Refer to patient-entered data. Mood: PHQ9 responses reviewed and appear below Pain related to today's visit:reviewed on nursing intake documentation PAST HISTORY was reviewed and updated: PAST MEDICAL HISTORY Diagnosis Date Cardiomyopathy ([facility]) 01/2008 apical balloon syndrome broken heart disease stress reaction to losing her father Chronic systolic heart failure ([facility]) Chronic systolic heart failure ([facility]) Depression 07/18/2016 Dysmetabolic syndrome 03/14/2016 Essential hypertension 08/16/2017 Family history of pancreatic cancer 06/05/2019 Mother 2019 age 65 Generalized anxiety disorder 03/14/2016 GERD without esophagitis 09/27/2021 History of 2019 novel coronavirus disease (COVID-19) 10/12/2020 10/10/2020 LBBB (left bundle branch block) 03/14/2016 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 Mason Neuro Muscle spasm 12/16/2019 Related to MS. On Clonopin Obesity, Class II, BMI 35-39.9 08/15/2022 Obesity, Class III, BMI 40-49.9 (morbid obesity) ([facility]) 08/15/2022 PCOS (polycystic ovarian syndrome) 03/14/2016 PMH - PAST MEDICAL HISTORY OF radioactive iiodine Postprocedural hypothyroidism 04/23/2003 Seasonal allergies 07/26/2021 Takotsubo cardiomyopathy 03/14/[address] Trevino PAST SURGICAL HISTORY Procedure Laterality Date 2D ECHO (EXEP) 06/21/2020 EF=40%, mild syst dysf 2D ECHO (EXEP) 04/12/2021 EF=45%, mild syst dysf, trival ND, TI 2D ECHO (EXEP) 08/08/2021 EF=45%, no significant valve disease ANKLE ARTHROSCOPY/SURGERY Right ECHO LVEF 37% ECHOCARDIOGRAM 05/29/2017 LEXISCAN STRESS TEST 06/21/2020 EF=41% , changes consistent with previous ND, no new reversible ischemic areas. PAST SURGICAL HISTORY OF arthroscopic knee surgery on right PAST SURGICAL HISTORY OF reconstructive to right leg for dog bite PAST SURGICAL HISTORY OF TMJ surgery which helped head pain. PAST SURGICAL HISTORY OF Jaw arthroscopy/surgery PAST SURGICAL HISTORY OF 2013 breast reduction PAST SURGICAL HISTORY OF 01/15/2017 micodiscectomy L4-L5 PAST SURGICAL HISTORY OF Bilateral 12/2018 Lasik surgery MEDICATIONS and ALLERGIES were reviewed and updated. SOCIAL HISTORY was reviewed and updated: Social History Tobacco Use Smoking status: Never Smokeless tobacco: Never Living situation: Living at home without assistance Employment Status / Disability: Full-time OBJECTIVE: VITALS & WELLNESS: BP 103/72 (BP Site: Left Arm, BP Position: Sitting, BP Cuff Size: Large Adult) Pulse 69 Ht 177.8 cm (5' 10) Wt 119.7 kg (264 lb) LMP 11/01/2024 (Approximate) SpO2 98% BMI 37.88 kg/m MSPT Results Flowsheet Row Office Visit from 02/12/2025 in [facility] Office Visit from 04/25/2018 in [facility] Office Visit from 08/14/2017 in [facility] Processing Speed Total Number Correct 59 61 67 Processing Speed Z score -- -- -- Dominant hand -- -- Right hand MDT Left Hand Time 20.82 21.65 21.9 MDT Right Hand Time 19.48 19.76 20.4 Walking Speed Test (25 feet) 4.41 4.97 5.6 Memory Z Score -- -- -- EXAM: General Appearance: well appearing, in no acute distress Mental status evaluation during the interview and examination showed normal level of consciousness, orientation, language, memory, praxis, and higher intellectual function Affect: Normal Extraocular movements: full, without GAYE Facial movements: Intact bilaterally Speech: normal Muscle strength (#/5): Right Left Upper Extremity: Deltoids 5 5 Biceps 5 5 Triceps 5 5 Tourist Information Officer 5 5 Dorsal interossei 5 5 Lower extremity: Iliopsoas 5 5 Quadriceps 5 5 Hamstrings 5 5 Tibialis anterior 5 5 Gastrocnemius 5 5 Coordination: Upper extremity dexterity and rapid movements: Normal bilaterally Finger-nose: no dysmetria; coordination intact Standing balance: Normal Standard gait: normal. Assistive device: independent RESULTS: Monitoring labs: CBC + Diff Component Value Date WBC 5.4 03/10/2024 HB 13.8 03/10/2024 HCT 42.9 03/10/2024 PLT 268 03/10/2024 CMP Component Value Date AST 18 03/10/2024 GLUC 102 03/10/2024 BUN 16 03/10/2024 CREAT 0.75 03/10/2024 NA 136 03/10/2024 K 4.8 03/10/2024 CHLOR 103 03/10/2024 ALT 31 03/10/2024 No results found for: JCVAB, JCVIND Discrete MRI Results Component Value Date Brain New T2 Lesions None 04/16/2018 Brain Enhancing Lesions None 04/16/2018 ASSESSMENT/PLAN: Romi Rodrigez is a 39 year old female with Multiple Sclerosis. Patient is on DMF for DMT. Reports good compliance. Will obtain labs in next couple months. Recommend brain MRI soonest available. MRI of the brain and/or spinal cord is being ordered to evaluate for efficacy of multiple sclerosis (MS) disease modifying therapy. Disease activity in MS is often not immediately detectable on history or examination, but is sensitively identified on MRI. If identified, new or active MS lesions on MRI may represent suboptimal response to MS therapy, and would change medical management. Dicsussed subtle changes in strength/coordination/motor fatigue in right hand - consider OT if needed. Consider spasticity team eval for LE spasms. Continue to work with PCP, specialists and mental health providers as directed. Exam is:Stable, continue with current IMDT. The prescribed disease modifying therapy for MS is having the expected benefit in this patient based on imaging and clinical criteria, and will be continued or refilled, with planned follow-up at approximately 6-month intervals to continue to assess response on an ongoing basis. Patient Health Education Discussed at Visit: Aerobic exercise, Emotional Health/Wellness, Risks and Common side effects of MS medications, and Vitamin D supplementation Follow-up: In 6 months at [place] or Virtual Visit with [facility] or sooner if needed I spent a total of 45 minutes on the date of the service which included preparing to see the patient, [id number] patient care, completing clinical documentation, obtaining and/or reviewing separately obtained history, performing a medically appropriate examination, counseling and educating the patient/family/caregiver, ordering medications, tests, or procedures, and communicating results to the patient/family/caregiver. Elder Caho PA-C The chart was reviewed for possible participation in the following studies:None documented in this encounter [facility] 02-12-2025 Note HNO ID: [id number] Author: ELDER CHAO PA-C Service: ? Author Type: Physician Can Conveyor Feeder Type: Progress Notes Filed: 02/12/2025 13:45 Note Text: [facility] FOLLOWUP/ESTABLISHED PATIENT VISIT PRINCIPAL NEUROLOGIC DIAGNOSIS: Multiple Sclerosis [facility] FOLLOWUP VISIT MS DISEASE HISTORY: Date of onset: apr-2009 Date of diagnosis: April-2009 Disease course from Onset; RIS with active MRI in past. h/o chronic migraines and 2 fatty masses were found on her brain, was having annual MRI monitoring and one of the MRIs showed lesions. Current MS Disease Therapy: Tecfidera (started August 2017) Previous MS Disease Therapies: - Avonex since 2008 - 07/2014-due to MRI progression - copaxone 40 mg caused exhaustion after each Saturday injection fatigue had to call off work. Has never had IV steroids, had oral prednisone and it was discontinued due to side effects heart was racing, I was beet red. - copaxone 20 mg started 09/14/2014 (breakthrough disease) - dimethyl fumarate 09/2020- 05/2021 (stopped due to GI intolerance) Last MRI brain: 01/18/23 MRI cervical and thoracic : 11/24/20 CHIEF COMPLAINT: Follow-up on MS disease modifying therapy - Virtual Visit INTERVAL HISTORY: Usual treating team: Efrem --> Mauro/Heath The patient is accompanied by self. The patient was last seen 02/01/23, currently taking DMF . More affordable now. Since the patient's last visit the patient reports overall feeling stable. Started semaglutide - end of Aug and switched to tirzepetide about 1 month ago - lost about 35-40 lbs - mild gerd - food noise decreased Saw cardiology in January 2025 for follow-up Lyrica continues to be helpful for hug sensations Seeing pain management for back - increased to Lyrica 100 mg BID (but stayed at 50 mg in morning, 100 mg qhs) - did get epidural shots in May after pain was elevated and it was helpful Does take melatonin for sleep - stopped seroquel about 1 year - feels less foggy since stopping Swimming and walking for exercise Did have cellulitis on right knee after a fall in March 2024 Sensory disruption (burning) in left arm and legs and feet Cramping in feet/calves - has baclofen 5 mg but makes very sleepy - takes klonopin 0.5 mg BID 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 - couldn't squeeze a twenty-nine palms correctly the other day SUBJECTIVE AND REVIEW OF SYSTEMS: Neuro-QoL Functions (higher=better functioning) Flowsheet Row Distance Health from 12/29/2019 in [facility] Office Visit from 04/25/2018 in [facility] Office Visit from 08/14/2017 in [facility] Upper Extremity Domain T Score 50 56.84 50.03 Lower Extremity Domain T Score 57 62.28 62.28 Cognitive Function Domain T Score 37 46.85 46.85 Positive Affect Well Being T Score -- 63.61 57.39 Ability To Participate In Social Roles T Score 42 47.04 54.53 Satisfaction With Social Roles T Score 41 50.14 49.2 Neuro-QoL Symptoms (higher=worse symptoms) Flowsheet Row Distance Health from 12/29/2019 in [facility] Office Visit from 04/25/2018 in [facility] Office Visit from 08/14/2017 in [facility] Sleep Domain T Score 60 55.63 54.3 Fatigue Domain T Score 64 64.84 52.3 Anxiety Domain T Score 72 64.58 65.23 Depression Domain T Score 55 50.36 47.97 Stigma Domain T Score 51 50.07 48.56 Emotional Behavior Dyscontrol T Score -- 50.82 47.39 *NeuroQoL is a multi-domain patient-reported quality of life questionnaire. PHQ-9 Flowsheet Row Office Visit from 03/18/2024 in [facility] Office Visit from 03/06/2023 in [facility] PHQ-9 Score 3 7 *PHQ-9 is a questionnaire for depressive symptoms, with scores 0-4 indicating none, 5-9 mild, 10-14 moderate, 15-19 moderately severe, and 20-27 severe symptoms. PROMIS-10 Flowsheet Row Office Visit from 11/21/2024 in [facility] Appointment from 11/18/2024 in [facility] Global Physical Health T Score 47.7 47.7 Global Mental Health T Score 59 59 0-10 Standard Pain Scale 3 3 *PROMIS-10 is a patient-reported quality of life measure, typically reported as physical and mental domains. Here scores are expressed as percentiles, where the lowest possible score is one, the highest possible score is 99, and 50 is average. Refer to patient-entered data. Mood: PHQ9 responses reviewed and appear below Pain related to today's visit:reviewed on nursing intake documentation PAST HISTORY was reviewed and updated: PAST MEDICAL HISTORY Diagnosis Date Cardiomyopathy (HCC) 01/2008 apical balloon syndrome broken heart disease stress reaction to losing her father Chronic systolic heart failure (HCC) Chronic systolic heart failure (HCC) Depression 07/18/2016 Dysmetabolic syndrome 03/14/2016 Essential hypertension 08/16/2017 Family history of pancreatic cancer 06/05/2019 Mother 2019 age 65 Generalized anxiety disorder 03/14/2016 GERD without esophagitis (more content not included)... [facility] 02-02-2025 Telephone encounter Note Pt notified of same via HEATHER. Marina Davila LPN [facility] 02-02-2025 Miscellaneous Notes Pt notified of same via HEATHER. Marina Davila LPN Coreg is prescribed by cardio. All other meds requested have been sent Prescription Refill Information The patient has been identified by name and date of : Yes Caregiver verified no other encounters exist for this prescription request: Yes Caregiver confirmed with patient/requestor that no other refills are due, in the near future, with this provider at this time: Yes The last office visit in the department: 11/21/2024 Does the patient have a future office visit with this provider/department: Yes Requested Prescriptions Pending Prescriptions Disp Refills carvedilol (COREG) 25 mg tablet 180 tablet Sig: Take 1 tablet by mouth two times a day. Per Cardio levothyroxine (LEVOXYL) 25 mcg tablet 90 tablet 1 Sig: Take 1 tablet by mouth once daily. Along with your 200 mcg tab for a total of 225 mcg a day. Take on empty stomach. For Thyroid losartan (COZAAR) 50 mg tablet 90 tablet 1 Sig: Take 1 tablet by mouth once daily. omeprazole (PRILOSEC) 40 mg capsule 180 capsule 1 Sig: Take 1 capsule by mouth two times a day. spironolactone (ALDACTONE) 100 mg tablet 90 tablet 1 Sig: TAKE ONE TABLET ONCE PER DAY AT THE SAME TIME EVERY DAY levothyroxine (SYNTHROID) 200 mcg tablet 90 tablet 1 Sig: Take 1 tablet by mouth once daily. clonazePAM (KLONOPIN) 0.5 mg tablet 270 tablet 0 Sig: Take 1 tablet by mouth three times a day for 90 days. Lizzette Demarco LPN February 02, 2025 9:41 AM documented in this encounter [facility] 02-02-2025 Telephone encounter Note Coreg is prescribed by cardio. All other meds requested have been sent [facility] 02-02-2025 Telephone encounter Note Prescription Refill Information The patient has been identified by name and date of : Yes Caregiver verified no other encounters exist for this prescription request: Yes Caregiver confirmed with patient/requestor that no other refills are due, in the near future, with this provider at this time: Yes The last office visit in the department: 11/21/2024 Does the patient have a future office visit with this provider/department: Yes Requested Prescriptions Pending Prescriptions Disp Refills carvedilol (COREG) 25 mg tablet 180 tablet Sig: Take 1 tablet by mouth two times a day. Per Cardio levothyroxine (LEVOXYL) 25 mcg tablet 90 tablet 1 Sig: Take 1 tablet by mouth once daily. Along with your 200 mcg tab for a total of 225 mcg a day. Take on empty stomach. For Thyroid losartan (COZAAR) 50 mg tablet 90 tablet 1 Sig: Take 1 tablet by mouth once daily. omeprazole (PRILOSEC) 40 mg capsule 180 capsule 1 Sig: Take 1 capsule by mouth two times a day. spironolactone (ALDACTONE) 100 mg tablet 90 tablet 1 Sig: TAKE ONE TABLET ONCE PER DAY AT THE SAME TIME EVERY DAY levothyroxine (SYNTHROID) 200 mcg tablet 90 tablet 1 Sig: Take 1 tablet by mouth once daily. clonazePAM (KLONOPIN) 0.5 mg tablet 270 tablet 0 Sig: Take 1 tablet by mouth three times a day for 90 days. Lizzette Demarco LPN February 02, 2025 9:41 AM [facility] 01-22-2025 Note HNO ID: [id number] Author: MARINA DAVILA LPN Service: ? Author Type: LICENSED NURSE Type: Progress Notes Filed: 01/22/2025 07:10 Note Text: Scan on 01/21/2025 4:25 PM by Provider, External, PA-C: Consultation - Cardiology [facility] 01-05-2025 Telephone encounter Note The following approved medication requests have been transmitted electronically. Requested Prescriptions Signed Prescriptions Disp Refills iv contrast (will be provided with radiology test) 1 Each 0 Sig: MRI Brain Inject, intravenously, once for 1 dose.No IV access, insert saline lock prior to beginning of sedation, infusion, injection of imaging exam.Discontinue saline lock post exam. If Pt. has a central line or IVAD, may access for administration according to line specific nursing protocol.Once exam is complete flush line and de-access according to line specific nursing protocol in the MR contrast administration guidelines link dimethyl fumarate (TECFIDERA) [address] 180 capsule 3 Sig: Take 1 capsule by mouth two times a day. [email or web address] Elder Chao PA-C [facility] 01-05-2025 Miscellaneous Notes The following approved medication requests have been transmitted electronically. Requested Prescriptions Signed Prescriptions Disp Refills iv contrast (will be provided with radiology test) 1 Each 0 Sig: MRI Brain Inject, intravenously, once for 1 dose.No IV access, insert saline lock prior to beginning of sedation, infusion, injection of imaging exam.Discontinue saline lock post exam. If Pt. has a central line or IVAD, may access for administration according to line specific nursing protocol.Once exam is complete flush line and de-access according to line specific nursing protocol in the MR contrast administration guidelines link dimethyl fumarate (TECFIDERA) [address] 180 capsule 3 Sig: Take 1 capsule by mouth two times a day. [email or web address] Elder Chao PA-C Happy to see her in person. I placed new brain MRI orders. Agree with DMF at [facility] or [facility]. If she is agreeable I can send Rx to [facility] for processing. Elder Chao PA-C Patient last seen 02/01/23 for a virtual visit Patient last seen in-person 12/27/2021 Per visit 02/02/24: PLAN: 1. Continue dimethyl fumarate 2. Labs q6-12 months 3. Brain MRI in 1 year or sooner if new symptoms 4. Continue Lyrica 5. Consider spasticity group referral 6. Follow-up in 6-12 months documented in this encounter [facility] 01-04-2025 Telephone encounter Note Duplicate encounter, see [facility] from 12/28/24 for response. Closing this encounter. GLO Kim [facility] 01-04-2025 Miscellaneous Notes Duplicate encounter, see [facility] from 12/28/24 for response. Closing this encounter. GLO Kim documented in this encounter [facility] 12-30-2024 Telephone encounter Note Happy to see her in person. I placed new brain MRI orders. Agree with DMF at [facility] or [facility]. If she is agreeable I can send Rx to [facility] for processing. Elder Chao PA-C [facility] 12-29-2024 Telephone encounter Note Patient last seen 02/01/23 for a virtual visit Patient last seen in-person 12/27/2021 Per visit 02/02/24: PLAN: 1. Continue dimethyl fumarate 2. Labs q6-12 months 3. Brain MRI in 1 year or sooner if new symptoms 4. Continue Lyrica 5. Consider spasticity group referral 6. Follow-up in 6-12 months [facility] 11-26-2024 Note HNO ID: [id number] Author: KADY SOL APRN.PSYCHIATRY PHYSICIAN Service: ? Author Type: Nurse Practitioner Type: Progress Notes Filed: 11/26/2024 09:15 Note Text: Patient declined duct layer helperRocio Ho is a 39 year old who presents for an annual gynecologic exam without complaints. Menses: cycles every 3 months and 3 days of flow Spotting at times since losing weight with semaglutide - does not need to wear protection Period symptoms: lower back pain Contraception: oral contraceptives HPV vaccine: No Last Pap: 03/01/2023 normal HPV: 03/01/2023 neg History of abnormal pap: Yes, 2017 ASCUS, HPV positive 01/2018 [place] benign Last mammogram: 03/2024 normal [facility] Abnormal mammogram: fibroadenoma of right breast 2012 Sexually active: Yes History of STDS: HPV Patient concerns for STD exposure: No. Time with current partner: 14 years Number of lifetime partners: 4 Pain with intercourse: No Postcoital bleeding: No Documentation from previous visit of 03/01/2023 was copied and pasted, documentation has been reviewed and edited as necessary for today's visit. 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 History LMP: 11/01/2024 (Approximate), Having periods Age at Menarche: 9 Age at First : Age at Menopause: Fretted Instruments Inspector History Comments: Sexual Activity: Yes; Male Contraception: Pill Menstrual Tracking History Flowsheet Row Appointment from 11/26/2024 in OB/Gynecology Menstrual Flow Light PAST MEDICAL HISTORY Diagnosis Date Cardiomyopathy (HCC) 01/2008 apical balloon syndrome broken heart disease stress reaction to losing her father Chronic systolic heart failure (HCC) Chronic systolic heart failure (HCC) Depression 07/18/2016 Dysmetabolic syndrome 03/14/2016 Essential hypertension 08/16/2017 Family history of pancreatic cancer 06/05/2019 Mother 2019 age 65 Generalized anxiety disorder 03/14/2016 GERD without esophagitis 09/27/2021 History of 2019 novel coronavirus disease (COVID-19) 10/12/2020 10/10/2020 LBBB (left bundle branch block) 03/14/2016 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 Mason Neuro Muscle spasm 12/16/2019 Related to MS. On Clonopin Obesity, Class II, BMI 35-39.9 08/15/2022 Obesity, Class III, BMI 40-49.9 (morbid obesity) (HCC) 08/15/2022 PCOS (polycystic ovarian syndrome) 03/14/2016 PMH - PAST MEDICAL HISTORY OF radioactive iiodine Postprocedural hypothyroidism 04/23/2003 Seasonal allergies 07/26/2021 Takotsubo cardiomyopathy 03/14/[address] Trevino PAST SURGICAL HISTORY Procedure Laterality Date 2D ECHO (EXEP) 06/21/2020 EF=40%, mild syst dysf 2D ECHO (EXEP) 04/12/2021 EF=45%, mild syst dysf, trival ND, TI 2D ECHO (EXEP) 08/08/2021 EF=45%, no significant valve disease ANKLE ARTHROSCOPY/SURGERY Right ECHO LVEF 37% ECHOCARDIOGRAM 05/29/2017 LEXISCAN STRESS TEST 06/21/2020 EF=41% , changes consistent with previous ND, no new reversible ischemic areas. PAST SURGICAL HISTORY OF arthroscopic knee surgery on right PAST SURGICAL HISTORY OF reconstructive to right leg for dog bite PAST SURGICAL HISTORY OF TMJ surgery which helped head pain. PAST SURGICAL HISTORY OF Jaw arthroscopy/surgery PAST SURGICAL HISTORY OF 2013 breast reduction PAST SURGICAL HISTORY OF 01/15/2017 micodiscectomy L4-L5 PAST SURGICAL HISTORY OF Bilateral 12/2018 Lasik surgery FAMILY HISTORY Problem Relation Age of Onset other (diabetes mellitus) Mother other (pancreatic cancer) Mother 65 Coronary Artery Disease Father from [place] age 60 other (Sudden ) Father other (ovarian cyst) Sister oophorectomy other (endometriosis) Sister other (post concussion syndrome) Sister COPD Maternal Grandmother other (atrial fibrillation) Maternal Grandmother other (strokes) Maternal Grandmother other (brain tumor) Other Miscarriages / Stillbirths Other other (multiple sclerosis) Other mothers cousin with MS SOCIAL HISTORY Social History Tobacco Use Smoking status: Never Smokeless tobacco: Never Vaping Use Vaping status: Never Used Substance Use Topics Alcohol use: Yes Comment: seldom Drug use: No REVIEW OF SYSTEMS Abdomen: No abdominal pain, nausea, vomiting, diarrhea, or constipation. No bloating, early satiety, indigestion, or increased flatulence. Bladder: No dysuria, gross hematuria, urinary frequency, urinary urgency, or incontinence. Breast: No breast lumps, nipple d/c, overlying skin changes, redness or skin retraction. Allergies and current medication updated:Yes SENSITIVE EXAM: The sensitive examination was discussed with the Patient or Patient's Authorized Dock Pumper. As applicable, any other physic (more content not included)... [facility] 11-26-2024 History of Presen t illness Narrative Patient declined duct layer helper. Romi is a 39 year old who presents for an annual gynecologic exam without complaints. Menses: cycles every 3 months and 3 days of flow Spotting at times since losing weight with semaglutide - does not need to wear protection Period symptoms: lower back pain Contraception: oral contraceptives HPV vaccine: No Last Pap: 03/01/2023 normal HPV: 03/01/2023 neg History of abnormal pap: Yes, 2017 ASCUS, HPV positive 01/2018 [place] benign Last mammogram: 03/2024 normal [facility] Abnormal mammogram: fibroadenoma of right breast 2012 Sexually active: Yes History of STDS: HPV Patient concerns for STD exposure: No. Time with current partner: 14 years Number of lifetime partners: 4 Pain with intercourse: No Postcoital bleeding: No Documentation from previous visit of 03/01/2023 was copied and pasted, documentation has been reviewed and edited as necessary for today's visit. 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 History LMP: 11/01/2024 (Approximate), Having periods Age at Menarche: 9 Age at First : Age at Menopause: Fretted Instruments Inspector History Comments: Sexual Activity: Yes; Male Contraception: Pill Menstrual Tracking History Flowsheet Row Appointment from 11/26/2024 in OB/Gynecology Menstrual Flow Light PAST MEDICAL HISTORY Diagnosis Date Cardiomyopathy (HCC) 01/2008 apical balloon syndrome broken heart disease stress reaction to losing her father Chronic systolic heart failure (HCC) Chronic systolic heart failure (HCC) Depression 07/18/2016 Dysmetabolic syndrome 03/14/2016 Essential hypertension 08/16/2017 Family history of pancreatic cancer 06/05/2019 Mother 2019 age 65 Generalized anxiety disorder 03/14/2016 GERD without esophagitis 09/27/2021 History of 2019 novel coronavirus disease (COVID-19) 10/12/2020 10/10/2020 LBBB (left bundle branch block) 03/14/2016 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 Downing-Santos Neuro Muscle spasm 12/16/2019 Related to MS. On Clonopin Obesity, Class II, BMI 35-39.9 08/15/2022 Obesity, Class III, BMI 40-49.9 (morbid obesity) (HCC) 08/15/2022 PCOS (polycystic ovarian syndrome) 03/14/2016 PMH - PAST MEDICAL HISTORY OF radioactive iiodine Postprocedural hypothyroidism 04/23/2003 Seasonal allergies 07/26/2021 Takotsubo cardiomyopathy 03/14/[address] Trevino PAST SURGICAL HISTORY Procedure Laterality Date 2D ECHO (EXEP) 06/21/2020 EF=40%, mild syst dysf 2D ECHO (EXEP) 04/12/2021 EF=45%, mild syst dysf, trival ND, TI 2D ECHO (EXEP) 08/08/2021 EF=45%, no significant valve disease ANKLE ARTHROSCOPY/SURGERY Right ECHO LVEF 37% ECHOCARDIOGRAM 05/29/2017 LEXISCAN STRESS TEST 06/21/2020 EF=41% , changes consistent with previous ND, no new reversible ischemic areas. PAST SURGICAL HISTORY OF arthroscopic knee surgery on right PAST SURGICAL HISTORY OF reconstructive to right leg for dog bite PAST SURGICAL HISTORY OF TMJ surgery which helped head pain. PAST SURGICAL HISTORY OF Jaw arthroscopy/surgery PAST SURGICAL HISTORY OF 2013 breast reduction PAST SURGICAL HISTORY OF 01/15/2017 micodiscectomy L4-L5 PAST SURGICAL HISTORY OF Bilateral 12/2018 Lasik surgery FAMILY HISTORY Problem Relation Age of Onset other (diabetes mellitus) Mother other (pancreatic cancer) Mother 65 Coronary Artery Disease Father from [place] age 60 other (Sudden ) Father other (ovarian cyst) Sister oophorectomy other (endometriosis) Sister other (post concussion syndrome) Sister COPD Maternal Grandmother other (atrial fibrillation) Maternal Grandmother other (strokes) Maternal Grandmother other (brain tumor) Other Miscarriages / Stillbirths Other other (multiple sclerosis) Other mothers cousin with MS SOCIAL HISTORY Social History Tobacco Use Smoking status: Never Smokeless tobacco: Never Vaping Use Vaping status: Never Used Substance Use Topics Alcohol use: Yes Comment: seldom Drug use: No REVIEW OF SYSTEMS Abdomen: No abdominal pain, nausea, vomiting, diarrhea, or constipation. No bloating, early satiety, indigestion, or increased flatulence. Bladder: No dysuria, gross hematuria, urinary frequency, urinary urgency, or incontinence. Breast: No breast lumps, nipple d/c, overlying skin changes, redness or skin retraction. Allergies and current medication updated:Yes SENSITIVE EXAM: The sensitive examination was discussed with the Patient or Patient's Authorized Dock Pumper. As applicable, any other physician, advance practice provider, medical student, or other health professional student that will be observing or involved in the sensitive examination for educational or training purposes was discussed with the Patient or Authorized Dock Pumper. The Patient or Authorized Dock Pumper has agreed to proceed with the sensitive examination. (Sensitive examination includes inspection and/or palpation of the breasts, pelvis, prostate and anorectal regions). EXAM: BP 122/70 Wt 276 lb (125.2kg) LMP 11/01/2024 GENERAL: pleasant, female in no apparent distress HEENT: Normocephalic, atraumatic, mucus membranes moist, and no lesions NECK: Supple, full range of motion, no adenopathy, and thyroid normal DERMATOLOGY: Normal, without lesions, non-icteric, and non-hirsute BREAST: soft, non-tender, symmetric, no dominant mass, normal nipple-areolar complex, no lymphadenopathy, and no nipple discharge. CHEST: Normal inspiratory effort ABDOMEN: soft, non-tender, and no masses PELVIC: external genitalia normal, normal Bartholin's glands, urethra, [place]'s glands, no vulvar lesions, no cervical lesions, physiologic discharge present, normal appearing perineal body and perianal region BIMANUAL: uterus normal size, shape and consistency, no adnexal masses, and non-tender RECTOVAGINAL: deferred. NEURO: alert and oriented x3,exam grossly non-focal EXTREMITIES: normal ASSESSMENT/PLAN: 1) Health maintenance: Pap/HPV up to date and due 2025 due to history Mammogram ordered by PCP to be completed at [facility] Nutrition, exercise and routine health maintenance exams reviewed. 2) Contraception: combined hormonal contraceptives. Contraceptive options reviewed and information provided. Discussed semaglutide, contraception and BTB. 3) STD screening: Declined STD check. 4) Follow up one year or sooner as needed Kady Sol APRN.ALANNAH documented in this encounter [facility] 11-21-2024 History of Presen t illness Narrative Chief Complaint Patient presents with: 6 Month Exam HPI Romi Rodrigez is a 39 year old female who presents here today for 6 month . Patient with Hx of HTN, general anxiety, depression, hypothyroidism, hyperlipidemia, Migraines, systolic CHF, Takotsubo cardiopathy, GERD, MS as well as those reviewed and addressed below. Patient has been doing ok. No new issus or concerns. Patient says she has been doing great. Patient started on Semiglutide through a weight loss jasvir with a physician. Two weeks ago had nasal congestion, mild headache, fever and tested positive for Influenza A on and was treated with tamiflu and if needed a z-eddie since she was going to [facility]. Patient has been having pain in her ears since the flight on the right and had noticed some crusted blood after landing. No fevers or chills since she has been back and no further drainage from the ear. It is sensitive to touch. Still has nasal drainage but it is now clear. Past medical history, appointments, medications, allergies reviewed. Previous Medical History PAST MEDICAL HISTORY Diagnosis Date Cardiomyopathy (HCC) 01/2008 apical balloon syndrome broken heart disease stress reaction to losing her father Chronic systolic heart failure (HCC) Chronic systolic heart failure (HCC) Depression 07/18/2016 Dysmetabolic syndrome 03/14/2016 Essential hypertension 08/16/2017 Family history of pancreatic cancer 06/05/2019 Mother 2019 age 65 Generalized anxiety disorder 03/14/2016 GERD without esophagitis 09/27/2021 History of 2019 novel coronavirus disease (COVID-19) 10/12/2020 10/10/2020 LBBB (left bundle branch block) 03/14/2016 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 Mason Neuro Muscle spasm 12/16/2019 Related to MS. On Clonopin Obesity, Class II, BMI 35-39.9 08/15/2022 Obesity, Class III, BMI 40-49.9 (morbid obesity) (HCC) 08/15/2022 PCOS (polycystic ovarian syndrome) 03/14/2016 PMH - PAST MEDICAL HISTORY OF radioactive iiodine Postprocedural hypothyroidism 04/23/2003 Seasonal allergies 07/26/2021 Takotsubo cardiomyopathy 03/14/[address] Trevino Previous Surgical History PAST SURGICAL HISTORY Procedure Laterality Date 2D ECHO (EXEP) 06/21/2020 EF=40%, mild syst dysf 2D ECHO (EXEP) 04/12/2021 EF=45%, mild syst dysf, trival ND, TI 2D ECHO (EXEP) 08/08/2021 EF=45%, no significant valve disease ANKLE ARTHROSCOPY/SURGERY Right ECHO LVEF 37% ECHOCARDIOGRAM 05/29/2017 LEXISCAN STRESS TEST 06/21/2020 EF=41% , changes consistent with previous ND, no new reversible ischemic areas. PAST SURGICAL HISTORY OF arthroscopic knee surgery on right PAST SURGICAL HISTORY OF reconstructive to right leg for dog bite PAST SURGICAL HISTORY OF TMJ surgery which helped head pain. PAST SURGICAL HISTORY OF Jaw arthroscopy/surgery PAST SURGICAL HISTORY OF 2013 breast reduction PAST SURGICAL HISTORY OF 01/15/2017 micodiscectomy L4-L5 PAST SURGICAL HISTORY OF Bilateral 12/2018 Lasik surgery Family History FAMILY HISTORY Problem Relation Age of Onset other (diabetes mellitus) Mother other (pancreatic cancer) Mother 65 Coronary Artery Disease Father from [place] age 60 other (Sudden ) Father other (ovarian cyst) Sister oophorectomy other (endometriosis) Sister other (post concussion syndrome) Sister COPD Maternal Grandmother other (atrial fibrillation) Maternal Grandmother other (strokes) Maternal Grandmother other (brain tumor) Other Miscarriages / Stillbirths Other other (multiple sclerosis) Other mothers cousin with MS Patient Allergies ALLERGIES Allergen Reactions Michelle [Fexofenadi* Hives Lidocaine Rash, Hives Lisinopril Swelling Angio edema Buspar [Buspirone H* Other: See Comments Lack of efficacy. Codeine Intolerance, GI Upset Morphine Vomiting extreme nausea and vomiting Paxil [Paroxetine H* Other: See Comments Made depression worse Prednisone Other: See Comments heart racing and face was beet red. Prozac [Fluoxetine * Other: See Comments Made depression worse Seroquel [Quetiapin* Other: See Comments Zero sex drive Tape [Adhesive Tape* Unknown Wellbutrin [Bupropi* Other: See Comments Made depression worse Zoloft [Sertraline * Other: See Comments Made depression worse Current Medications Current Outpatient Medications on File Prior to Visit Medication Sig empagliflozin (JARDIANCE) 10 mg tablet Take 1 tablet by mouth once daily. Take 1 tablet once daily in the morning montelukast (SINGULAIR) 10 mg tablet Take 1 tablet by mouth daily at bedtime. clonazePAM (KLONOPIN) 0.5 mg tablet Take 1 tablet by mouth three times a day for 90 days. levothyroxine (LEVOXYL) 25 mcg tablet Take 1 tablet by mouth once daily. Along with your 200 mcg tab for a total of 225 mcg a day. Take on empty stomach. For Thyroid losartan (COZAAR) 50 mg tablet Take 1 tablet by mouth once daily. omeprazole (PRILOSEC) 40 mg capsule Take 1 capsule by mouth two times a day. spironolactone (ALDACTONE) 100 mg tablet TAKE ONE TABLET ONCE PER DAY AT THE SAME TIME EVERY DAY levothyroxine (SYNTHROID) 200 mcg tablet Take 1 tablet by mouth once daily. Drospirenone-Ethinyl Estradiol 3-0.03 mg per tablet Take 1 tablet by mouth once daily. For continuous use. Take active pills only for 4 packs then one week of placebo pills. scopolamine (TRANSDERM-SCOP) patch 1.5 mg/72 hr (delivers 1 mg over 3 days) Apply 1 Patch as directed every 72 hours. Apply patch to skin behind ear 4hrs prior to travel. dimethyl fumarate (TECFIDERA) [address] Take 1 capsule (240 mg) by mouth two times a day. pregabalin (LYRICA) 50 mg capsule Take 1 capsule by mouth two times a day for 90 days. escitalopram oxalate (LEXAPRO) 20 mg tablet Take 20 mg by mouth once daily. One tablet daily meclizine (ANTIVERT) 12.5 mg tab Take 1 tablet by mouth three times daily as needed (dizziness). carvedilol (COREG) 25 mg tablet Take 1 tablet by mouth twice daily. Per Cardio fluticasone (FLONASE) 50 mcg/actuation nasal spray Use 2 Sprays in each nostril once daily. Rinse mouth after use. Cetirizine 10 mg cap Take by mouth. biotin 5 mg tab Take 5,000 mg by mouth once daily. omega-3 fatty acids 1,000 mg cap Take 1,000 mg by mouth once daily. Cholecalciferol, Vitamin D3, 1,000 unit cap Take 1,000 Units by mouth once daily. pyridoxine hcl(VITAMIN B-6 100 MG TAB) One daily. MULTI-VITAMIN TAB 1 tablet daily CALCIUM 500 MG TAB 1 tablet daily No current facility-administered medications on file prior to visit. Social History Social History Tobacco Use Smoking status: Never Smokeless tobacco: Never Vaping Use Vaping status: Never Used Substance Use Topics Alcohol use: Yes Comment: seldom Drug use: No Review of Symptoms REVIEW OF SYSTEMS GENERAL: No unintentional weight loss, malaise or fevers. HEENT: se HPI NECK: Negative for lumps, goiter, pain and significant neck swelling RESPIRATORY: Negative for cough, hemoptysis, wheezing, COPD, dyspnea or shortness of breath CARDIOVASCULAR: Negative for chest pain, leg swelling, hypertension, CHF or palpitations GI: No nausea, vomiting, or diarrhea and No frequent heartburn or reflux symptoms PSYCH: her anxiety ad depression being managed well with the lexapro. ENDOCRINE: Negative for cold or heat intolerance, polyuria, polydipsia and goiter NEURO: No history of headaches, syncope, paralysis, seizures or tremors EXAM: BP 110/68 (BP Site: Right Arm, BP Position: Sitting, BP Cuff Size: Large Adult) Pulse (!) 27 Temp 36.4 C (97.5 F) Resp 16 Wt 125.6 kg (277 lb) LMP 11/01/2024 (Approximate) BMI 40.61 kg/m Last 5 Encounter Wt Readings: Date: Wt: 11/21/2024 125.6 kg (277 lb) 03/18/2024 123.8 kg (273 lb) 09/11/2023 136.1 kg (300 lb) 03/06/2023 130.6 kg (288 lb) 03/01/2023 130.6 kg (288 lb) General Appearance: Well appearing, alert, in no acute distress, well-hydrated, well nourished.. Ears: External ears, TM's normal, canals clear. There is tenderness with palpation to the right ear and pulling on it. It also hurts with the ear piece being placed into the canal. Neck: Supple, no adenopathy; thyroid symmetric, normal size, no bruits. Lungs: Lungs clear to auscultation. No wheezing, rhonchi, rales.. Heart: RRR without murmur, gallop, or rubs. No ectopy. Abdomen: Normal abdominal exam, Abdomen soft, non-tender. Bowel sounds normal. No masses, organomegaly. Extremities: No deformities, edema, skin discoloration, Good capillary refill. Peripheral Pulses: Normal. Health Maintenance List BP Controlled (<130/80) due on 01/25/2022 Influenza Vaccine(1) due on 06/07/2024 Covid-19 Vaccine( season) due on 06/07/2024 Mammogram Screening due on 03/13/2025 Annual PCP Team Chronic Disease Visit due on 03/18/2025 Cervical Cancer Screening due on 03/01/2028 DTaP,Tdap,Td Vaccine(3 - Td or Tdap) due on 09/03/2028 Pneumococcal Vaccine Completed Hepatitis B Vaccine Discontinued Hepatitis C Screening Discontinued HIV Screening Discontinued Data reviewed Latest Ref Rng 03/10/2024 11/04/2024 Cholesterol, Total <=200 239 ! (E) 181 (E) Triglyceride <=150 156 ! (E) 152 ! (E) HDL CHOLESTEROL >=50 65 (E) 69 (E) LDL CHOLESTEROL <=130 143 ! (E) 82 (E) TSH 0.358 - 3.74 IU/ml 1.33 (E) 0.952 (E) A/P ASSESSMENT/PLAN: 1. Essential hypertension - ICD9: 401.9, ICD10: I10 (primary diagnosis) - Controlled - Continue current medications - Recommend home blood pressure monitoring, to bring results to next visit - Encouraged sodium restriction, DASH or Mediterranean diet - Recommend regular aerobic exercise - Discussed need for and benefit of weight loss. BMI 40.61 kg/(m^2) 2. Mixed hyperlipidemia - ICD9: 272.2, ICD10: E78.2 - Controlled - Improving control - Counseled on healthy diet and regular exercise - Discussed need for and benefit of weight loss. BMI 40.61 kg/(m^2) 3. GERD without esophagitis - ICD9: 530.81, ICD10: K21.9 - Continue treatment with Prilosec 40 mg BID 4. Postprocedural hypothyroidism - ICD9: 244.0, ICD10: E89.0 - Instructed patient on importance of taking on an empty stomach either first thing in the morning or at bedtime. - continue current dose of Synthroid 5. Chronic systolic heart failure (HCC) - ICD9: 428.22, ICD10: I50.22 - clinically doing well. Patient to cont f/u with cardio 6. Cardiomyopathy, unspecified type (HCC) - ICD9: 425.4, ICD10: I42.9 - as per #5 7. Takotsubo cardiomyopathy - ICD9: 429.83, ICD10: I51.81 - as per #5 8. Generalized anxiety disorder - ICD9: 300.02, ICD10: F41.1 - stable on the lexpro 9. Depression, unspecified depression type - ICD9: 311, ICD10: F32.A - as per # 8 10. Migraine with aura and without status migrainosus, not intractable - ICD9: 346.00, ICD10: G43.109 - patient has been doing well. No changes needed. 11. Multiple sclerosis (HCC) - ICD9: 340, ICD10: G35 - follows with neuro for management 12. Obesity, Class III, BMI 40-49.9 (morbid obesity) (HCC) - ICD9: 278.01, ICD10: E66.01 Weight decreasing - Behavioral intervention and - Pharmacological intervention 13. Encounter for screening mammogram for breast cancer - ICD9: V76.12, ICD10: Z12.31 See HPI - JONAS SCREENING W JOSIANE 14. Acute otitis externa of right ear, unspecified type - ICD9: 380.10, ICD10: H60.501 - patient to use OTC pain reliever. - will place on augmenting 875 mg twice ad ay for 10 days. - f/u if not resolving. Requested Prescriptions Signed Prescriptions Disp Refills amoxicillin-clavulanate potassium (AUGMENTIN) 875-125 mg per tablet 20 tablet 0 Sig: Take 1 tablet by mouth two times a day for 10 days. F/u 6 months WAE check CMP, Lipid, UA, A1c, CBC, B12, Mg, TSH prior. Isael Fish MD documented in this encounter [facility] 11-21-2024 Note HNO ID: [id number] Author: ISAEL FISH MD Service: ? Author Type: Physician Type: Progress Notes Filed: 11/22/2024 18:15 Note Text: Chief Complaint Patient presents with: 6 Month Exam HPI Romi Rodrigez is a 39 year old female who presents here today for 6 month . Patient with Hx of HTN, general anxiety, depression, hypothyroidism, hyperlipidemia, Migraines, systolic CHF, Takotsubo cardiopathy, GERD, MS as well as those reviewed and addressed below. Patient has been doing ok. No new issus or concerns. Patient says she has been doing great. Patient started on Semiglutide through a weight loss jasvir with a physician. Two weeks ago had nasal congestion, mild headache, fever and tested positive for Influenza A on and was treated with tamiflu and if needed a z-eddie since she was going to [facility]. Patient has been having pain in her ears since the flight on the right and had noticed some crusted blood after landing. No fevers or chills since she has been back and no further drainage from the ear. It is sensitive to touch. Still has nasal drainage but it is now clear. Past medical history, appointments, medications, allergies reviewed. 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 Mason Neuro Muscle spasm 12/16/2019 Related to MS. On Clonopin Obesity, Class II, BMI 35-39.9 08/15/2022 Obesity, Class III, BMI 40-49.9 (morbid obesity) (HCC) 08/15/2022 PCOS (polycystic ovarian syndrome) 03/14/2016 PMH - PAST MEDICAL HISTORY OF radioactive iiodine Postprocedural hypothyroidism 04/23/2003 Seasonal allergies 07/26/2021 Takotsubo cardiomyopathy 03/14/[address] Trevino Previous Surgical History PAST SURGICAL HISTORY Procedure Laterality Date 2D ECHO (EXEP) 06/21/2020 EF=40%, mild syst dysf 2D ECHO (EXEP) 04/12/2021 EF=45%, mild syst dysf, trival ND, TI 2D ECHO (EXEP) 08/08/2021 EF=45%, no significant valve disease ANKLE ARTHROSCOPY/SURGERY Right ECHO LVEF 37% ECHOCARDIOGRAM 05/29/2017 LEXISCAN STRESS TEST 06/21/2020 EF=41% , changes consistent with previous ND, no new reversible ischemic areas. PAST SURGICAL HISTORY OF arthroscopic knee surgery on right PAST SURGICAL HISTORY OF reconstructive to right leg for dog bite PAST SURGICAL HISTORY OF TMJ surgery which helped head pain. PAST SURGICAL HISTORY OF Jaw arthroscopy/surgery PAST SURGICAL HISTORY OF 2013 breast reduction PAST SURGICAL HISTORY OF 01/15/2017 micodiscectomy L4-L5 PAST SURGICAL HISTORY OF Bilateral 12/2018 Lasik surgery Family History FAMILY HISTORY Problem Relation Age of Onset other (diabetes mellitus) Mother other (pancreatic cancer) Mother 65 Coronary Artery Disease Father from [place] age 60 other (Sudden ) Father other (ovarian cyst) Sister oophorectomy other (endometriosis) Sister other (post concussion syndrome) Sister COPD Maternal Grandmother other (atrial fibrillation) Maternal Grandmother other (strokes) Maternal Grandmother other (brain tumor) Other Miscarriages / Stillbirths Other other (multiple sclerosis) Other mothers cousin with MS Patient Allergies ALLERGIES Allergen Reactions Michelle [Fexofenadi* Hives Lidocaine Rash, Hives Lisinopril Swelling Angio edema Buspar [Buspirone H* Other: See Comments Lack of efficacy. Codeine Intolerance, GI Upset Morphine Vomiting extreme nausea and vomiting Paxil [Paroxetine H* Other: See Comments Made depression worse Prednisone Other: See Comments heart racing and face was beet red. Prozac [Fluoxetine * Other: See Comments Made depression worse Seroquel [Quetiapin* Other: See Comments Zero sex drive Tape [Adhesive Tape* Unknown Wellbutrin [Bupropi* Other: See Comments Made depression worse Zoloft [Sertraline * Other: See Comments Made depression worse Current Medications Current Outpatient Medications on File Prior to Visit Medication Sig empagliflozin (JARDIANCE) 10 mg tablet Take 1 tablet by mouth once daily. Take 1 tablet once daily in the morning montelukast (SINGULAIR) 10 mg tablet Take 1 tablet by mouth daily at (more content not included)... [facility] 11-06-2024 Telephone encounter Note Already addressed in duplicate message. [facility] 11-06-2024 Miscellaneous Notes Already addressed in duplicate message. Prescription Refill Information The patient has been identified by name and date of : Yes Caregiver verified no other encounters exist for this prescription request: Yes Caregiver confirmed with patient/requestor that no other refills are due, in the near future, with this provider at this time: Yes The last office visit in the department: 03-18-24 Does the patient have a future office visit with this provider/department: Yes Requested Prescriptions Pending Prescriptions Disp Refills clonazePAM (KLONOPIN) 0.5 mg tablet 270 tablet 0 Sig: Take 1 tablet by mouth three times a day for 90 days. Yamile Youngblood November 06, 2024 9:09 AM documented in this encounter [facility] 11-06-2024 Telephone encounter Note Let patient know her Coreg is prescribed by cardiology. The following approved medication requests have been transmitted electronically. Requested Prescriptions Pending Prescriptions Disp Refills carvedilol (COREG) 25 mg tablet Sig: Take 1 tablet by mouth two times a day. Per Cardio Signed Prescriptions Disp Refills empagliflozin (JARDIANCE) 10 mg tablet 90 tablet 1 Sig: Take 1 tablet by mouth once daily. Take 1 tablet once daily in the morning Authorizing Provider: ISAEL FISH montelukast (SINGULAIR) 10 mg tablet 90 tablet 1 Sig: Take 1 tablet by mouth daily at bedtime. Authorizing Provider: ISAEL FISH clonazePAM (KLONOPIN) 0.5 mg tablet 270 tablet 0 Sig: Take 1 tablet by mouth three times a day for 90 days. Authorizing Provider: ISAEL FISH Refused Prescriptions Disp Refills levothyroxine (LEVOXYL) 25 mcg tablet 90 tablet 1 Sig: Take 1 tablet by mouth once daily. Along with your 200 mcg tab for a total of 225 mcg a day. Take on empty stomach. For Thyroid Refused By: LIZZETTE DEMARCO Reason for Refusal: Records indicate that there is a valid prescription at the pharmacy losartan (COZAAR) 50 mg tablet 90 tablet 1 Sig: Take 1 tablet by mouth once daily. Refused By: LIZZETTE DEMARCO Reason for Refusal: Records indicate that there is a valid prescription at the pharmacy omeprazole (PRILOSEC) 40 mg capsule 180 capsule 1 Sig: Take 1 capsule by mouth two times a day. Refused By: LIZZETTE DEMARCO Reason for Refusal: Records indicate that there is a valid prescription at the pharmacy spironolactone (ALDACTONE) 100 mg tablet 90 tablet 1 Sig: TAKE ONE TABLET ONCE PER DAY AT THE SAME TIME EVERY DAY Refused By: LIZZETTE DEMARCO Reason for Refusal: Records indicate that there is a valid prescription at the pharmacy levothyroxine (SYNTHROID) 200 mcg tablet 90 tablet 1 Sig: Take 1 tablet by mouth once daily. Refused By: LIZZETTE DEMARCO Reason for Refusal: Records indicate that there is a valid prescription at the pharmacy Isael Fish MD [facility] 11-06-2024 Miscellaneous Notes Let patient know her Coreg is prescribed by cardiology. The following approved medication requests have been transmitted electronically. Requested Prescriptions Pending Prescriptions Disp Refills carvedilol (COREG) 25 mg tablet Sig: Take 1 tablet by mouth two times a day. Per Cardio Signed Prescriptions Disp Refills empagliflozin (JARDIANCE) 10 mg tablet 90 tablet 1 Sig: Take 1 tablet by mouth once daily. Take 1 tablet once daily in the morning Authorizing Provider: IASEL FISH montelukast (SINGULAIR) 10 mg tablet 90 tablet 1 Sig: Take 1 tablet by mouth daily at bedtime. Authorizing Provider: ISAEL FISH clonazePAM (KLONOPIN) 0.5 mg tablet 270 tablet 0 Sig: Take 1 tablet by mouth three times a day for 90 days. Authorizing Provider: ISAEL FISH Refused Prescriptions Disp Refills levothyroxine (LEVOXYL) 25 mcg tablet 90 tablet 1 Sig: Take 1 tablet by mouth once daily. Along with your 200 mcg tab for a total of 225 mcg a day. Take on empty stomach. For Thyroid Refused By: LIZZETTE DEMARCO Reason for Refusal: Records indicate that there is a valid prescription at the pharmacy losartan (COZAAR) 50 mg tablet 90 tablet 1 Sig: Take 1 tablet by mouth once daily. Refused By: LIZZETTE DEMARCO Reason for Refusal: Records indicate that there is a valid prescription at the pharmacy omeprazole (PRILOSEC) 40 mg capsule 180 capsule 1 Sig: Take 1 capsule by mouth two times a day. Refused By: LIZZETTE DEMARCO Reason for Refusal: Records indicate that there is a valid prescription at the pharmacy spironolactone (ALDACTONE) 100 mg tablet 90 tablet 1 Sig: TAKE ONE TABLET ONCE PER DAY AT THE SAME TIME EVERY DAY Refused By: LIZZETTE DEMARCO Reason for Refusal: Records indicate that there is a valid prescription at the pharmacy levothyroxine (SYNTHROID) 200 mcg tablet 90 tablet 1 Sig: Take 1 tablet by mouth once daily. Refused By: LIZZETTE DEMARCO Reason for Refusal: Records indicate that there is a valid prescription at the pharmacy Isael Fish MD Prescription Refill Information The patient has been identified by name and date of : Yes Caregiver verified no other encounters exist for this prescription request: Yes Caregiver confirmed with patient/requestor that no other refills are due, in the near future, with this provider at this time: Yes The last office visit in the department: 03/18/2024 Does the patient have a future office visit with this provider/department: Yes Requested Prescriptions Pending Prescriptions Disp Refills carvedilol (COREG) 25 mg tablet Sig: Take 1 tablet by mouth two times a day. Per Cardio empagliflozin (JARDIANCE) 10 mg tablet 90 tablet 1 Sig: Take 1 tablet by mouth once daily. Take 1 tablet once daily in the morning montelukast (SINGULAIR) 10 mg tablet 90 tablet 1 Sig: Take 1 tablet by mouth daily at bedtime. clonazePAM (KLONOPIN) 0.5 mg tablet 270 tablet 0 Sig: Take 1 tablet by mouth three times a day for 90 days. Refused Prescriptions Disp Refills levothyroxine (LEVOXYL) 25 mcg tablet 90 tablet 1 Sig: Take 1 tablet by mouth once daily. Along with your 200 mcg tab for a total of 225 mcg a day. Take on empty stomach. For Thyroid losartan (COZAAR) 50 mg tablet 90 tablet 1 Sig: Take 1 tablet by mouth once daily. omeprazole (PRILOSEC) 40 mg capsule 180 capsule 1 Sig: Take 1 capsule by mouth two times a day. spironolactone (ALDACTONE) 100 mg tablet 90 tablet 1 Sig: TAKE ONE TABLET ONCE PER DAY AT THE SAME TIME EVERY DAY levothyroxine (SYNTHROID) 200 mcg tablet 90 tablet 1 Sig: Take 1 tablet by mouth once daily. Lizzette Demarco LPN November 06, 2024 8:40 AM documented in this encounter [facility] 11-06-2024 Telephone encounter Note Prescription Refill Information The patient has been identified by name and date of : Yes Caregiver verified no other encounters exist for this prescription request: Yes Caregiver confirmed with patient/requestor that no other refills are due, in the near future, with this provider at this time: Yes The last office visit in the department: 03-18-24 Does the patient have a future office visit with this provider/department: Yes Requested Prescriptions Pending Prescriptions Disp Refills clonazePAM (KLONOPIN) 0.5 mg tablet 270 tablet 0 Sig: Take 1 tablet by mouth three times a day for 90 days. Yamile Youngblood November 06, 2024 9:09 AM [facility] 11-06-2024 Telephone encounter Note Prescription Refill Information The patient has been identified by name and date of : Yes Caregiver verified no other encounters exist for this prescription request: Yes Caregiver confirmed with patient/requestor that no other refills are due, in the near future, with this provider at this time: Yes The last office visit in the department: 03/18/2024 Does the patient have a future office visit with this provider/department: Yes Requested Prescriptions Pending Prescriptions Disp Refills carvedilol (COREG) 25 mg tablet Sig: Take 1 tablet by mouth two times a day. Per Cardio empagliflozin (JARDIANCE) 10 mg tablet 90 tablet 1 Sig: Take 1 tablet by mouth once daily. Take 1 tablet once daily in the morning montelukast (SINGULAIR) 10 mg tablet 90 tablet 1 Sig: Take 1 tablet by mouth daily at bedtime. clonazePAM (KLONOPIN) 0.5 mg tablet 270 tablet 0 Sig: Take 1 tablet by mouth three times a day for 90 days. Refused Prescriptions Disp Refills levothyroxine (LEVOXYL) 25 mcg tablet 90 tablet 1 Sig: Take 1 tablet by mouth once daily. Along with your 200 mcg tab for a total of 225 mcg a day. Take on empty stomach. For Thyroid losartan (COZAAR) 50 mg tablet 90 tablet 1 Sig: Take 1 tablet by mouth once daily. omeprazole (PRILOSEC) 40 mg capsule 180 capsule 1 Sig: Take 1 capsule by mouth two times a day. spironolactone (ALDACTONE) 100 mg tablet 90 tablet 1 Sig: TAKE ONE TABLET ONCE PER DAY AT THE SAME TIME EVERY DAY levothyroxine (SYNTHROID) 200 mcg tablet 90 tablet 1 Sig: Take 1 tablet by mouth once daily. Lizzette Demarco LPN November 06, 2024 8:40 AM [facility] 11-05-2024 Note HNO ID: [id number] Author: ISAEL FISH MD Service: ? Author Type: Physician Type: Progress Notes Filed: 11/05/2024 13:49 Note Text: Please let patient know her routine f/u would be better done in person since I wont have a BP check or be able to do an examination so the virtual will be very limited in scope. [facility] 11-05-2024 Note HNO ID: [id number] Author: MARINA DAVILA LPN Service: ? Author Type: LICENSED NURSE Type: Progress Notes Filed: 11/05/2024 08:21 Note Text: Labs ordered by Dr Fish. Pt has VV 11/18/[address] Fish. Scan on 11/04/2024 6:35 PM by Provider, VITALIY Vela: Chemistry [facility] 11-05-2024 History of Presen t illness Narrative Labs ordered by Dr Fish. Pt has VV 11/18/[address] Fish. Scan on 11/04/2024 6:35 PM by Provider, Dane, PA-C: Chemistry documented in this encounter [facility] 09-01-2024 Telephone encounter Note Summary: appointment tried calling patient to get her scheduled for a follow up but patients refused appointment [facility] 09-01-2024 Miscellaneous Notes Summary: appointment tried calling patient to get her scheduled for a follow up but patients refused appointment documented in this encounter [facility] 08-31-2024 Telephone encounter Note The following approved medication requests have been transmitted electronically. Requested Prescriptions Signed Prescriptions Disp Refills levothyroxine (LEVOXYL) 25 mcg tablet 90 tablet 1 Sig: Take 1 tablet by mouth once daily. Along with your 200 mcg tab for a total of 225 mcg a day. Take on empty stomach. For Thyroid Authorizing Provider: ISAEL FISH losartan (COZAAR) 50 mg tablet 90 tablet 1 Sig: Take 1 tablet by mouth once daily. Authorizing Provider: ISAEL FISH omeprazole (PRILOSEC) 40 mg capsule 180 capsule 1 Sig: Take 1 capsule by mouth two times a day. Authorizing Provider: ISAEL FISH spironolactone (ALDACTONE) 100 mg tablet 90 tablet 1 Sig: TAKE ONE TABLET ONCE PER DAY AT THE SAME TIME EVERY DAY Authorizing Provider: ISAEL FISH levothyroxine (SYNTHROID) 200 mcg tablet 90 tablet 1 Sig: Take 1 tablet by mouth once daily. Authorizing Provider: ISAEL FISH MD [facility] 08-31-2024 Miscellaneous Notes The following approved medication requests have been transmitted electronically. Requested Prescriptions Signed Prescriptions Disp Refills levothyroxine (LEVOXYL) 25 mcg tablet 90 tablet 1 Sig: Take 1 tablet by mouth once daily. Along with your 200 mcg tab for a total of 225 mcg a day. Take on empty stomach. For Thyroid Authorizing Provider: ISAEL FISH losartan (COZAAR) 50 mg tablet 90 tablet 1 Sig: Take 1 tablet by mouth once daily. Authorizing Provider: ISAEL FISH omeprazole (PRILOSEC) 40 mg capsule 180 capsule 1 Sig: Take 1 capsule by mouth two times a day. Authorizing Provider: ISAEL FISH spironolactone (ALDACTONE) 100 mg tablet 90 tablet 1 Sig: TAKE ONE TABLET ONCE PER DAY AT THE SAME TIME EVERY DAY Authorizing Provider: ISAEL FISH levothyroxine (SYNTHROID) 200 mcg tablet 90 tablet 1 Sig: Take 1 tablet by mouth once daily. Authorizing Provider: ISAEL FISH MD Prescription Refill Information The patient has been identified by name and date of : Yes Caregiver verified no other encounters exist for this prescription request: Yes Caregiver confirmed with patient/requestor that no other refills are due, in the near future, with this provider at this time: Yes The last office visit in the department: Does the patient have a future office visit with this provider/department: Yes 09/2024 Requested Prescriptions Pending Prescriptions Disp Refills carvedilol (COREG) 25 mg tablet Sig: Take 1 tablet by mouth two times a day. Per Cardio levothyroxine (LEVOXYL) 25 mcg tablet 90 tablet 1 Sig: Take 1 tablet by mouth once daily. Along with your 200 mcg tab for a total of 225 mcg a day. Take on empty stomach. For Thyroid losartan (COZAAR) 50 mg tablet 90 tablet 1 Sig: Take 1 tablet by mouth once daily. omeprazole (PRILOSEC) 40 mg capsule 180 capsule 1 Sig: Take 1 capsule by mouth two times a day. spironolactone (ALDACTONE) 100 mg tablet 90 tablet 1 Sig: TAKE ONE TABLET ONCE PER DAY AT THE SAME TIME EVERY DAY levothyroxine (SYNTHROID) 200 mcg tablet 90 tablet 1 Sig: Take 1 tablet by mouth once daily. Evelina Peter MA August 31, 2024 8:05 AM documented in this encounter [facility] 08-31-2024 Telephone encounter Note Prescription Refill Information The patient has been identified by name and date of : Yes Caregiver verified no other encounters exist for this prescription request: Yes Caregiver confirmed with patient/requestor that no other refills are due, in the near future, with this provider at this time: Yes The last office visit in the department: Does the patient have a future office visit with this provider/department: Yes 09/2024 Requested Prescriptions Pending Prescriptions Disp Refills carvedilol (COREG) 25 mg tablet Sig: Take 1 tablet by mouth two times a day. Per Cardio levothyroxine (LEVOXYL) 25 mcg tablet 90 tablet 1 Sig: Take 1 tablet by mouth once daily. Along with your 200 mcg tab for a total of 225 mcg a day. Take on empty stomach. For Thyroid losartan (COZAAR) 50 mg tablet 90 tablet 1 Sig: Take 1 tablet by mouth once daily. omeprazole (PRILOSEC) 40 mg capsule 180 capsule 1 Sig: Take 1 capsule by mouth two times a day. spironolactone (ALDACTONE) 100 mg tablet 90 tablet 1 Sig: TAKE ONE TABLET ONCE PER DAY AT THE SAME TIME EVERY DAY levothyroxine (SYNTHROID) 200 mcg tablet 90 tablet 1 Sig: Take 1 tablet by mouth once daily. Evelina Peter MA August 31, 2024 8:05 AM [facility] 07-15-2024 Telephone encounter Note Spoke with patient and she is now feeling a little better. Evelina Peter MA [facility] 07-15-2024 Miscellaneous Notes Spoke with patient and she is now feeling a little better. Evelina ePter MA documented in this encounter [facility] 05-29-2024 Telephone encounter Note Annual exam moved from June 2024 to November 2024 to accommodate appointment with Pt's sister as well with AG. However, will need refill in the meantime. Requested Prescriptions Pending Prescriptions Disp Refills Drospirenone-Ethinyl Estradiol 3-0.03 mg per tablet 112 tablet 5 Sig: Take 1 tablet by mouth once daily. For continuous use. Take active pills only for 4 packs then one week of placebo pills. Kimberly Plata RN [facility] 05-29-2024 Miscellaneous Notes Annual exam moved from June 2024 to November 2024 to accommodate appointment with Pt's sister as well with AG. However, will need refill in the meantime. Requested Prescriptions Pending Prescriptions Disp Refills Drospirenone-Ethinyl Estradiol 3-0.03 mg per tablet 112 tablet 5 Sig: Take 1 tablet by mouth once daily. For continuous use. Take active pills only for 4 packs then one week of placebo pills. Kimberly Plata RN documented in this encounter [facility] 05-29-2024 Telephone encounter Note Appt rescheduled for 11/26/24 at 7am. Kimberly Plata RN [facility] 05-29-2024 Miscellaneous Notes Appt rescheduled for 11/26/24 at 7am. Kimberly Plata RN Yes, that will be fine. Kady Sol APRN.CNP Patient called back and asking if annual exam appointments can be scheduled for her and her sister Alex espinosa d/t sister having PTSD with doctor appointments. Patient requesting the first thing in the morning appointments for them (7 and 730 am). She is fine with with scheduling out so that they can be together. I was looking on 11/26/24 as that seemed to be the first 7 am opening with a 730 following. However, the 730 slot is for education. Can the sister be put into that spot? Skyla Plaza RN Left message for patient to call office to get appointments scheduled and find out what medication Pt needs refill on. Kimberly Plata RN documented in this encounter [facility] 05-29-2024 Telephone encounter Note Yes, that will be fine. Kady Sol APRN.CNP [facility] 05-29-2024 Telephone encounter Note Patient called back and asking if annual exam appointments can be scheduled for her and her sister Alex espinosa d/t sister having PTSD with doctor appointments. Patient requesting the first thing in the morning appointments for them (7 and 730 am). She is fine with with scheduling out so that they can be together. I was looking on 11/26/24 as that seemed to be the first 7 am opening with a 730 following. However, the 730 slot is for education. Can the sister be put into that spot? Skyla Plaza RN [facility] 05-25-2024 Telephone encounter Note The following approved medication requests have been transmitted electronically. Requested Prescriptions Signed Prescriptions Disp Refills clonazePAM (KLONOPIN) 0.5 mg tablet 270 tablet 0 Sig: Take 1 tablet by mouth three times a day for 90 days. Authorizing Provider: ISAEL FISH MD PDMP website checked and validated. All prescriptions have been APPROPRIATELY filled. No suspicious activity was identified. 05/25/2024 by Isael Fish MD [facility] 05-25-2024 Miscellaneous Notes The following approved medication requests have been transmitted electronically. Requested Prescriptions Signed Prescriptions Disp Refills clonazePAM (KLONOPIN) 0.5 mg tablet 270 tablet 0 Sig: Take 1 tablet by mouth three times a day for 90 days. Authorizing Provider: ISAEL FISH MD PDMP website checked and validated. All prescriptions have been APPROPRIATELY filled. No suspicious activity was identified. 05/25/2024 by Isael Fish MD Prescription Refill Information The patient has been identified by name and date of : Yes Caregiver verified no other encounters exist for this prescription request: Yes Caregiver confirmed with patient/requestor that no other refills are due, in the near future, with this provider at this time: Yes The last office visit in the department: 03-18-24 Does the patient have a future office visit with this provider/department: Yes Requested Prescriptions Pending Prescriptions Disp Refills clonazePAM (KLONOPIN) 0.5 mg tablet 270 tablet 0 Sig: Take 1 tablet by mouth three times a day for 90 days. Yamile Brown Pss May 25, 2024 10:27 AM documented in this encounter [facility] 05-25-2024 Telephone encounter Note The following approved medication requests have been transmitted electronically. Requested Prescriptions Signed Prescriptions Disp Refills scopolamine (TRANSDERM-SCOP) patch 1.5 mg/72 hr (delivers 1 mg over 3 days) 3 Patch 0 Sig: Apply 1 Patch as directed every 72 hours. Apply patch to skin behind ear 4hrs prior to travel. Isael Fish MD [facility] 05-25-2024 Miscellaneous Notes The following approved medication requests have been transmitted electronically. Requested Prescriptions Signed Prescriptions Disp Refills scopolamine (TRANSDERM-SCOP) patch 1.5 mg/72 hr (delivers 1 mg over 3 days) 3 Patch 0 Sig: Apply 1 Patch as directed every 72 hours. Apply patch to skin behind ear 4hrs prior to travel. Isael Fish MD documented in this encounter [facility] 05-25-2024 Telephone encounter Note Left message for patient to call office to get appointments scheduled and find out what medication Pt needs refill on. Kimberly Plata RN [facility] 05-25-2024 Telephone encounter Note Prescription Refill Information The patient has been identified by name and date of : Yes Caregiver verified no other encounters exist for this prescription request: Yes Caregiver confirmed with patient/requestor that no other refills are due, in the near future, with this provider at this time: Yes The last office visit in the department: 03-18-24 Does the patient have a future office visit with this provider/department: Yes Requested Prescriptions Pending Prescriptions Disp Refills clonazePAM (KLONOPIN) 0.5 mg tablet 270 tablet 0 Sig: Take 1 tablet by mouth three times a day for 90 days. Yamile Stephanie Youngblood May 25, 2024 10:27 AM [facility] 05-04-2024 Note HNO ID: [id number] Author: EVELINA PETER MA Service: ? Author Type: Modeling Instructor Type: Progress Notes Filed: 05/04/2024 16:43 Note Text: Scan on 05/01/2024 7:57 AM by ProviderDane PA-C: Consultation - Orthopedics Scan on 05/01/2024 9:22 AM by ProviderDane PA-C: X-ray Evelina Peter MA [facility] 05-04-2024 History of Presen t illness Narrative Scan on 05/01/2024 7:57 AM by Dane Coughlin PA-C: Consultation - Orthopedics Scan on 05/01/2024 9:22 AM by ProviderDane PA-C: X-ray Evelina Peter MA documented in this encounter [facility] 04-22-2024 Telephone encounter Note Patient notified and faxed to Dr. Montero. Evelina Peter MA [facility] 04-22-2024 Miscellaneous Notes Patient notified and faxed to Dr. Montero. Evelina Peter MA Please fax EMG reports to DR. Montero at [place] and let patient know we did this. Patient notified and voiced understanding. Evelina Peter MA Patient does feel it is coming from her back. Her Surgeon was Dr. Jose MARTIN. She also has an appointment with Dr. Montero at [facility]. Evelina Peter MA Images from the original note were not included. Let patient know the nerve studies shows: So some of this may be from her back or a compression of the nerves in the anterior thigh area. Options are: 1) discuss with her neurologist and we can provider her a copy of the report. 2) see a pain management provider 3) see a home health billing specialist ( not sure who did her surgery) Received results of pt's EMG/NCS ordered by pcp. See below. Marina Davila LPN Scan on 04/21/2024 10:16 AM by Provider, VITALIY Vela: Neurology documented in this encounter [facility] 04-22-2024 Telephone encounter Note Please fax EMG reports to DR. Montero at [place] and let patient know we did this. [facility] 04-22-2024 Telephone encounter Note Patient notified and voiced understanding. Evelina Peter MA Patient does feel it is coming from her back. Her Surgeon was Dr. Jose MARTIN. She also has an appointment with Dr. Montero at [facility]. Evelina Peter MA [facility] 04-21-2024 Telephone encounter Note Images from the original note were not included. Let patient know the nerve studies shows: So some of this may be from her back or a compression of the nerves in the anterior thigh area. Options are: 1) discuss with her neurologist and we can provider her a copy of the report. 2) see a pain management provider 3) see a home health billing specialist ( not sure who did her surgery) [facility] 04-21-2024 Telephone encounter Note Received results of pt's EMG/NCS ordered by pcp. See below. Marina Davila LPN Scan on 04/21/2024 10:16 AM by ProviderDane PA-C: Neurology [facility] 03-26-2024 Telephone encounter Note Received lab results ordered by pcp. Marina Davila LPN Scan on 03/25/2024 5:35 PM by ProviderDane PA-C: Miscellaneous Lab [facility] 03-26-2024 Miscellaneous Notes Received lab results ordered by pcp. Marina Davila LPN Scan on 03/25/2024 5:35 PM by ProviderDane PA-C: Miscellaneous Lab documented in this encounter [facility] 03-24-2024 Telephone encounter Note Pt notified. Viviana Hill MA [facility] 03-24-2024 Miscellaneous Notes Pt notified. Viviana Hill MA Let patient know folate level was ok. Received labs results from [facility] ordered by pcp. Marina Davila LPN Scan on 03/23/2024 12:10 PM by ProviderDane PA-C: Chemistry documented in this encounter [facility] 03-24-2024 Telephone encounter Note Let patient know folate level was ok. [facility] 03-24-2024 Telephone encounter Note Received labs results from [facility] ordered by pcp. Marina Davila LPN Scan on 03/23/2024 12:10 PM by ProviderDane PA-C: Chemistry [facility] 03-18-2024 Instructions Isael Fish MD - 03/18/2024 5:26 PM EDT Please get labs done on or after 09/04/2024 prior to your next visit. documented in this encounter [facility] 03-18-2024 Note HNO ID: [id number] Author: ISAEL FISH MD Service: ? Author Type: Physician Type: Progress Notes Filed: 03/18/2024 19:46 Note Text: Chief Complaint Patient presents with: Physical HPI Romi Rodrigez is a 38 year old female who presents here today for Physical. Patient with Hx of HTN, general anxiety, depression, hypothyroidism, hyperlipidemia, Migraines, systolic CHF, Takotsubo cardiopathy, GERD, MS as well as those reviewed and addressed below. Patient has been dong ok. Past medical history, appointments, medications, allergies reviewed. 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 Downing-Santos Neuro Muscle spasm 12/16/2019 Related to MS. On Clonopin Obesity, Class II, BMI 35-39.9 08/15/2022 Obesity, Class III, BMI 40-49.9 (morbid obesity) (HCC) 08/15/2022 PCOS (polycystic ovarian syndrome) 03/14/2016 PMH - PAST MEDICAL HISTORY OF radioactive iiodine Postprocedural hypothyroidism 04/23/2003 Seasonal allergies 07/26/2021 Takotsubo cardiomyopathy 03/14/[address] Trevino Previous Surgical History PAST SURGICAL HISTORY Procedure Laterality Date 2D ECHO (EXEP) 06/21/2020 EF=40%, mild syst dysf 2D ECHO (EXEP) 04/12/2021 EF=45%, mild syst dysf, trival ND, TI 2D ECHO (EXEP) 08/08/2021 EF=45%, no significant valve disease ANKLE ARTHROSCOPY/SURGERY Right ECHO LVEF 37% ECHOCARDIOGRAM 05/29/2017 LEXISCAN STRESS TEST 06/21/2020 EF=41% , changes consistent with previous ND, no new reversible ischemic areas. PAST SURGICAL HISTORY OF arthroscopic knee surgery on right PAST SURGICAL HISTORY OF reconstructive to right leg for dog bite PAST SURGICAL HISTORY OF TMJ surgery which helped head pain. PAST SURGICAL HISTORY OF Jaw arthroscopy/surgery PAST SURGICAL HISTORY OF 2013 breast reduction PAST SURGICAL HISTORY OF 01/15/2017 micodiscectomy L4-L5 PAST SURGICAL HISTORY OF Bilateral 12/2018 Lasik surgery Family History FAMILY HISTORY Problem Relation Age of Onset other (diabetes mellitus) Mother other (pancreatic cancer) Mother 65 Coronary Artery Disease Father from [place] age 60 other (Sudden ) Father other (ovarian cyst) Sister oophorectomy other (endometriosis) Sister other (post concussion syndrome) Sister COPD Maternal Grandmother other (atrial fibrillation) Maternal Grandmother other (strokes) Maternal Grandmother other (brain tumor) Other Miscarriages / Stillbirths Other other (multiple sclerosis) Other mothers cousin with MS Patient Allergies ALLERGIES Allergen Reactions Michelle [Fexofenadi* Hives Lidocaine Rash, Hives Lisinopril Swelling Angio edema Buspar [Buspirone H* Other: See Comments Lack of efficacy. Codeine Intolerance, GI Upset Morphine Vomiting extreme nausea and vomiting Paxil [Paroxetine H* Other: See Comments Made depression worse Prednisone Other: See Comments heart racing and face was beet red. Prozac [Fluoxetine * Other: See Comments Made depression worse Tape [Adhesive Tape* Unknown Wellbutrin [Bupropi* Other: See Comments Made depression worse Zoloft [Sertraline * Other: See Comments Made depression worse Current Medications Current Outpatient Medications on File Prior to Visit Medication Sig levothyroxine (LEVOXYL) 25 mcg tablet Take 1 tablet by mouth once daily. Along with your 200 mcg tab for a total of 225 mcg a day. Take on empty stomach. For Thyroid losartan (COZAAR) 50 mg tablet Take 1 tablet by mouth once daily. omeprazole (PRILOSEC) 40 mg capsule Take 1 capsule by mouth two times a day. spironolactone (ALDACTONE) 100 mg tablet TAKE ONE TABLET ONCE PER DAY AT THE SAME TIME EVERY DAY empagliflozin (JARDIANCE) 10 mg tablet Take 1 tablet by mouth once daily. Take 1 tablet once daily in the morning clonazePAM (KLONOPIN) 0.5 mg tablet Take 1 tablet by mouth three times a day for 90 days. levothyroxine (SYNTHROID) 200 mcg tablet Take 1 tablet by mouth once daily. montelukast (SINGULAIR) 10 mg tablet Take 1 tablet by mouth daily at bedtime. dimethyl fumarate (TECFIDERA) [address] Take 1 capsule (240 mg) by mout (more content not included)... [facility] 03-18-2024 History of Presen t illness Narrative Chief Complaint Patient presents with: Physical HPI Romi Rodrigez is a 38 year old female who presents here today for Physical. Patient with Hx of HTN, general anxiety, depression, hypothyroidism, hyperlipidemia, Migraines, systolic CHF, Takotsubo cardiopathy, GERD, MS as well as those reviewed and addressed below. Patient has been dong ok. Past medical history, appointments, medications, allergies reviewed. Previous Medical History PAST MEDICAL HISTORY Diagnosis Date Cardiomyopathy (HCC) 01/2008 apical balloon syndrome broken heart disease stress reaction to losing her father Chronic systolic heart failure (HCC) Chronic systolic heart failure (HCC) Depression 07/18/2016 Dysmetabolic syndrome 03/14/2016 Essential hypertension 08/16/2017 Family history of pancreatic cancer 06/05/2019 Mother 2019 age 65 Generalized anxiety disorder 03/14/2016 GERD without esophagitis 09/27/2021 History of 2019 novel coronavirus disease (COVID-19) 10/12/2020 10/10/2020 LBBB (left bundle branch block) 03/14/2016 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 Downing-Santos Neuro Muscle spasm 12/16/2019 Related to MS. On Clonopin Obesity, Class II, BMI 35-39.9 08/15/2022 Obesity, Class III, BMI 40-49.9 (morbid obesity) ([facility]) 08/15/2022 PCOS (polycystic ovarian syndrome) 03/14/2016 PMH - PAST MEDICAL HISTORY OF radioactive iiodine Postprocedural hypothyroidism 04/23/2003 Seasonal allergies 07/26/2021 Takotsubo cardiomyopathy 03/14/[address] Trevino Previous Surgical History PAST SURGICAL HISTORY Procedure Laterality Date 2D ECHO (EXEP) 06/21/2020 EF=40%, mild syst dysf 2D ECHO (EXEP) 04/12/2021 EF=45%, mild syst dysf, trival ND, TI 2D ECHO (EXEP) 08/08/2021 EF=45%, no significant valve disease ANKLE ARTHROSCOPY/SURGERY Right ECHO LVEF 37% ECHOCARDIOGRAM 05/29/2017 LEXISCAN STRESS TEST 06/21/2020 EF=41% , changes consistent with previous ND, no new reversible ischemic areas. PAST SURGICAL HISTORY OF arthroscopic knee surgery on right PAST SURGICAL HISTORY OF reconstructive to right leg for dog bite PAST SURGICAL HISTORY OF TMJ surgery which helped head pain. PAST SURGICAL HISTORY OF Jaw arthroscopy/surgery PAST SURGICAL HISTORY OF 2013 breast reduction PAST SURGICAL HISTORY OF 01/15/2017 micodiscectomy L4-L5 PAST SURGICAL HISTORY OF Bilateral 12/2018 Lasik surgery Family History FAMILY HISTORY Problem Relation Age of Onset other (diabetes mellitus) Mother other (pancreatic cancer) Mother 65 Coronary Artery Disease Father from [place] age 60 other (Sudden ) Father other (ovarian cyst) Sister oophorectomy other (endometriosis) Sister other (post concussion syndrome) Sister COPD Maternal Grandmother other (atrial fibrillation) Maternal Grandmother other (strokes) Maternal Grandmother other (brain tumor) Other Miscarriages / Stillbirths Other other (multiple sclerosis) Other mothers cousin with MS Patient Allergies ALLERGIES Allergen Reactions Michelle [Fexofenadi* Hives Lidocaine Rash, Hives Lisinopril Swelling Angio edema Buspar [Buspirone H* Other: See Comments Lack of efficacy. Codeine Intolerance, GI Upset Morphine Vomiting extreme nausea and vomiting Paxil [Paroxetine H* Other: See Comments Made depression worse Prednisone Other: See Comments heart racing and face was beet red. Prozac [Fluoxetine * Other: See Comments Made depression worse Tape [Adhesive Tape* Unknown Wellbutrin [Bupropi* Other: See Comments Made depression worse Zoloft [Sertraline * Other: See Comments Made depression worse Current Medications Current Outpatient Medications on File Prior to Visit Medication Sig levothyroxine (LEVOXYL) 25 mcg tablet Take 1 tablet by mouth once daily. Along with your 200 mcg tab for a total of 225 mcg a day. Take on empty stomach. For Thyroid losartan (COZAAR) 50 mg tablet Take 1 tablet by mouth once daily. omeprazole (PRILOSEC) 40 mg capsule Take 1 capsule by mouth two times a day. spironolactone (ALDACTONE) 100 mg tablet TAKE ONE TABLET ONCE PER DAY AT THE SAME TIME EVERY DAY empagliflozin (JARDIANCE) 10 mg tablet Take 1 tablet by mouth once daily. Take 1 tablet once daily in the morning clonazePAM (KLONOPIN) 0.5 mg tablet Take 1 tablet by mouth three times a day for 90 days. levothyroxine (SYNTHROID) 200 mcg tablet Take 1 tablet by mouth once daily. montelukast (SINGULAIR) 10 mg tablet Take 1 tablet by mouth daily at bedtime. dimethyl fumarate (TECFIDERA) [address] Take 1 capsule (240 mg) by mouth two times a day. baclofen 10 mg tablet Take 1 tablet by mouth once daily as needed. pregabalin (LYRICA) 50 mg capsule Take 1 capsule by mouth two times a day for 90 days. Drospirenone-Ethinyl Estradiol 3-0.03 mg per tablet Take 1 tablet by mouth once daily. For continuous use. Take active pills only for 4 packs then one week of placebo pills. escitalopram oxalate (LEXAPRO) 20 mg tablet Take 20 mg by mouth once daily. One tablet daily meclizine (ANTIVERT) 12.5 mg tab Take 1 tablet by mouth three times daily as needed (dizziness). carvedilol (COREG) 25 mg tablet Take 1 tablet by mouth twice daily. Per Cardio fluticasone (FLONASE) 50 mcg/actuation nasal spray Use 2 Sprays in each nostril once daily. Rinse mouth after use. Cetirizine 10 mg cap Take by mouth. biotin 5 mg tab Take 5,000 mg by mouth once daily. omega-3 fatty acids 1,000 mg cap Take 1,000 mg by mouth once daily. Cholecalciferol, Vitamin D3, 1,000 unit cap Take 1,000 Units by mouth once daily. pyridoxine hcl(VITAMIN B-6 100 MG TAB) One daily. MULTI-VITAMIN TAB 1 tablet daily CALCIUM 500 MG TAB 1 tablet daily busPIRone (BUSPAR) 15 mg tablet 1 tab three times a day (Patient not taking: Reported on 03/18/2024) QUEtiapine (SEROQUEL) 50 mg tablet Take 1 tablet by mouth daily at bedtime. (Patient not taking: Reported on 03/18/2024) No current facility-administered medications on file prior to visit. Social History Social History Tobacco Use Smoking status: Never Smokeless tobacco: Never Vaping Use Vaping Use: Never used Substance Use Topics Alcohol use: Yes Comment: seldom Drug use: No Review of Symptoms REVIEW OF SYSTEMS GENERAL: No unintentional weight loss, malaise or fevers HEENT: Negative for frequent or significant headaches, No changes in hearing or vision, no nose bleeds or other nasal problems. Some post nasal drainage. NECK: Negative for lumps, goiter, pain and significant neck swelling RESPIRATORY: Negative for cough, hemoptysis, wheezing, COPD, dyspnea or shortness of breath CARDIOVASCULAR: Negative for chest pain, leg swelling, hypertension, CHF or palpitations GI: No nausea, vomiting, or diarrhea and No heartburn or reflux symptoms : No history of dysuria, frequency or blood MUSCULOSKELETAL: Negative for joint pain or swelling, back pain or muscle pain SKIN: Negative for lesions, rash, and itching PSYCH: Negative for sleep disturbance, mood disorder and recent psychosocial stressors HEMATOLOGY/LYMPHOLOGY: Negative for prolonged bleeding, bruising easily or swollen nodes ENDOCRINE: Negative for cold or heat intolerance, polyuria, polydipsia and goiter NEURO: No history of headaches, syncope, paralysis, seizures or tremors EXAM: BP 130/80 (BP Site: Left Arm, BP Position: Sitting, BP Cuff Size: Large Adult) Pulse 72 Resp 16 Ht 175.9 cm (5' 9.25) Wt 123.8 kg (273 lb) LMP 03/05/2024 (Approximate) BMI 40.02 kg/m Last 5 Encounter Wt Readings: Date: Wt: 03/18/2024 123.8 kg (273 lb) 09/11/2023 136.1 kg (300 lb) 03/06/2023 130.6 kg (288 lb) 03/01/2023 130.6 kg (288 lb) 08/15/2022 119.7 kg (264 lb) General Appearance: Well appearing, alert, in no acute distress, well-hydrated, well nourished.. Skin: Skin color, texture, turgor normal, no suspicious rashes or lesions. Head: Normocephalic, no masses, lesions, tenderness or abnormalities. Eyes: Anicteric sclera. Pupils are equally round and reactive to light. Extraocular movements are intact. . Ears: External ears, TM's normal, canals clear. Nose/Sinuses: Nares normal, septum midline, mucosa normal, no drainage or sinus tenderness. Oropharynx: Lips, mucosa, and tongue normal, teeth and gums normal, oropharynx normal. Neck: Supple, no adenopathy; thyroid symmetric, normal size, no bruits. Lungs: Lungs clear to auscultation. No wheezing, rhonchi, rales.. Heart: RRR without murmur, gallop, or rubs. No ectopy. Abdomen: Normal abdominal exam, Abdomen soft, non-tender. Bowel sounds normal. No masses, organomegaly. Extremities: No deformities, edema, skin discoloration, clubbing or cyanosis. Good capillary refill. . Musculoskeletal: Muscular strength intact, No joint swelling, deformity, or tenderness. Peripheral Pulses: Normal. Neurologic: Gait normal. Reflexes normal and symmetric. Sensation to light touch and crainal nerves 2-12 intact.. light touch was decreased in the left upper lateral thigh compared to the right but below the knee was symmetrical and intact. Health Maintenance List BP Controlled (<130/80) due on 01/25/2022 Annual PCP Team Chronic Disease Visit due on 09/11/2024 Mammogram Screening due on 03/13/2025 Cervical Cancer Screening due on 03/01/2028 DTaP,Tdap,Td Vaccine(3 - Td or Tdap) due on 09/03/2028 Influenza Vaccine Completed Covid-19 Vaccine Completed Pneumococcal Vaccine Completed HPV Vaccine Aged Out Hepatitis B Vaccine Discontinued Hepatitis C Screening Discontinued HIV Screening Discontinued Data reviewed Latest Ref Rng 03/10/2024 WBC 3.4 - 10.8 K/uL 5.4 (E) RBC 4.14 - 5.80 M/uL 4.82 (E) Hemoglobin 12.6 - 17.7 g/dL 13.8 (E) Hematocrit 37.5 - 51.0 % 42.9 (E) MCV 79 - 97 fL 89.0 (E) MCH 26.6 - 33 Pg 28.6 (E) MCHC 31.5 - 35.7 g/dL 32.2 (E) RDW 12.3 - 15.4 % 13 (E) Platelet Count 150 - 379 k/uL 268 (E) Neutrophil % % 63 (E) Lymphocyte % % 25 (E) Monocyte % % 9.9 (E) Eosinophil % % 1.3 (E) Basophil % % 0.6 (E) NEUTROPHILS ABSOLUTE 1.4 - 7.0 k/uL 3.4 (E) LYMPHS ABSOLUTE 0.7 - 3.1 k/uL 1.34 (E) NA 136 - 145 mmol/L 136 (E) K 3.5 - 5.1 mmol/L 4.8 (E) Chloride 98 - 107 MEQ/L 103 (E) CO2 21 - 32 MEQ/L 28 (E) Glucose 74 - 106 MG/DL 102 (E) BUN 7 - 18 MG/DL 16 (E) Creatinine 0.6 - 1.3 MG/DL 0.75 (E) GFR mL/MIN 90 (E) GFR AFR AMER mL/MIN 109 (E) Total Protein 6.4 - 8.2 gm/dL 7.8 (E) Albumin 3.2 - 4.6 gm/dL 3.8 (E) Calcium 8.5 - 10.1 mg/dL 9.5 (E) Bili Total 0.2 - 1 mg/dL 0.4 (E) AST 8 - 37 U/L 18 (E) ALT (SGPT) 12 - 78 U/L 31 (E) Alk Phos Total 45 - 117 U/L 68 (E) Direct Bilirubin 0.00 - 0.3 0.11 (E) Cholesterol, Total 200 239 ! (E) Triglyceride 150 156 ! (E) HDL CHOLESTEROL 50 65 (E) LDL CHOLESTEROL 130 143 ! (E) LDH 84 - 246 168 (E) Magnesium 1.6 - 2.6 2.2 (E) TSH 0.358 - 3.74 IU/ml 1.33 (E) Hemoglobin A1C 0 - 5.7 % 5.0 (E) Vitamin B12 211 - 911 400 (E) A/P ASSESSMENT/PLAN: 1. Well adult exam - ICD9: V70.0, ICD10: Z00.00 (primary diagnosis) - Counseled on healthy diet and regular exercise - Discussed need and benefit for weight loss. BMI 40.02 kg/(m^2) - Follow up for annual exam in one year 2. Essential hypertension - ICD9: 401.9, ICD10: I10 - Controlled - Continue current medications - Recommend home blood pressure monitoring, to bring results to next visit - Encouraged sodium restriction, DASH or Mediterranean diet - Recommend regular aerobic exercise - Discussed need for and benefit of weight loss. BMI 40.02 kg/(m^2) 3. Mixed hyperlipidemia - ICD9: 272.2, ICD10: E78.2 - Worsening control - Counseled on healthy diet and regular exercise - Discussed need for and benefit of weight loss. BMI 40.02 kg/(m^2) 4. Postprocedural hypothyroidism - ICD9: 244.0, ICD10: E89.0 - Instructed patient on importance of taking on an empty stomach either first thing in the morning or at bedtime. - continue current dose of Synthroid 5. GERD without esophagitis - ICD9: 530.81, ICD10: K21.9 - Continue treatment with Prilosec 40 mg BID 6. Migraine with aura and without status migrainosus, not intractable - ICD9: 346.00, ICD10: G43.109 - stable not needing meds. 7. Chronic systolic heart failure (HCC) - ICD9: 428.22, ICD10: I50.22 - clinically stable and managed by cardio. 8. Cardiomyopathy, unspecified type (HCC) - ICD9: 425.4, ICD10: I42.9 - as per 7 9. Takotsubo cardiomyopathy - ICD9: 429.83, ICD10: I51.81 - as per #7 10. Multiple sclerosis (HCC) - ICD9: 340, ICD10: G35 - stable and managed per neuro 11. Generalized anxiety disorder - ICD9: 300.02, ICD10: F41.1 - stable seeing psych 12. Depression, unspecified depression type - ICD9: 311, ICD10: F32.A - as per #11 13. Obesity, Class III, BMI 40-49.9 (morbid obesity) (HCC) - ICD9: 278.01, ICD10: E66.01 Weight decreasing - Behavioral intervention 14. Muscle spasm - ICD9: 728.85, ICD10: M62.838 - substance agreement signed - will check urine tox. 15. Numbness and tingling of left leg - ICD9: 782.0, ICD10: R20.0, R20.2 Check - FOLATE, SERUM - check NCS/EMG at [facility] F/u 6 months check TSH, lipid Isael Fish MD documented in this encounter [facility] 03-17-2024 Note HNO ID: [id number] Author: KARRI PADILLA LPN Service: ? Author Type: LICENSED NURSE Type: Progress Notes Filed: 03/17/2024 17:51 Note Text: Scan on 03/13/2024 1:15 PM by Provider, External, PA-C: Mammography [facility] 03-17-2024 History of Presen t illness Narrative Scan on 03/13/2024 1:15 PM by ProviderDane PAKierraC: Mammography documented in this encounter [facility] 03-10-2024 Note HNO ID: [id number] Author: KARRI PADILLA LPN Service: ? Author Type: LICENSED NURSE Type: Progress Notes Filed: 03/10/2024 10:53 Note Text: Scan on 03/10/2024 9:40 AM by Provider, External, PA-C: Chemistry Scan on 03/10/2024 9:32 AM by Provider, External, PA-C: Chemistry Scan on 03/10/2024 9:23 AM by Provider, External, PA-C: Chemistry Scan on 03/10/2024 9:14 AM by Provider, External, PA-C: Hematology Scan on 03/10/2024 9:09 AM by Provider, External, PA-C: Hematology [facility] 03-10-2024 History of Presen t illness Narrative Scan on 03/10/2024 9:40 AM by Provider, External, PA-C: Chemistry Scan on 03/10/2024 9:32 AM by Provider, External, PA-C: Chemistry Scan on 03/10/2024 9:23 AM by Provider, External, PA-C: Chemistry Scan on 03/10/2024 9:14 AM by Provider, External, PA-C: Hematology Scan on 03/10/2024 9:09 AM by Provider, External, PA-C: Hematology documented in this encounter [facility] 01-27-2024 History of Presen t illness Narrative Scan on 01/24/2024 4:34 PM by Provider, Dane, PA-C: Chemistry Lovely Ch LPN documented in this encounter [facility] 04-19-2024 Miscellaneous Notes Pt notified that all prescriptions requested except carvedilol was sent to the pharmacy & she needs to check with cardio for that refill. Pt notified via [employer]t. Lovely Ch LPN Let patient know her carvedilol comes from [facility]. Rest of her meds were refilled. The following approved medication requests have been transmitted electronically. Requested Prescriptions Signed Prescriptions Disp Refills levothyroxine (LEVOXYL) 25 mcg tablet 90 tablet 1 Sig: Take 1 tablet by mouth once daily. Along with your 200 mcg tab for a total of 225 mcg a day. Take on empty stomach. For Thyroid Authorizing Provider: ISAEL FISH losartan (COZAAR) 50 mg tablet 90 tablet 1 Sig: Take 1 tablet by mouth once daily. Authorizing Provider: ISAEL FISH omeprazole (PRILOSEC) 40 mg capsule 180 capsule 1 Sig: Take 1 capsule by mouth two times a day. Authorizing Provider: ISAEL FISH spironolactone (ALDACTONE) 100 mg tablet 90 tablet 1 Sig: TAKE ONE TABLET ONCE PER DAY AT THE SAME TIME EVERY DAY Authorizing Provider: ISAEL FISH empagliflozin (JARDIANCE) 10 mg tablet 90 tablet 1 Sig: Take 1 tablet by mouth once daily. Take 1 tablet once daily in the morning Authorizing Provider: ISAEL FISH clonazePAM (KLONOPIN) 0.5 mg tablet 270 tablet 0 Sig: Take 1 tablet by mouth three times a day for 90 days. Authorizing Provider: ISAEL FISH levothyroxine (SYNTHROID) 200 mcg tablet 90 tablet 1 Sig: Take 1 tablet by mouth once daily. Authorizing Provider: ISAEL FISH montelukast (SINGULAIR) 10 mg tablet 90 tablet 1 Sig: Take 1 tablet by mouth daily at bedtime. Authorizing Provider: ISAEL FISH MD PDMP website checked and validated. All prescriptions have been APPROPRIATELY filled. No suspicious activity was identified. 01/24/2024 by Isael Fish MD Patient has been identified by name and date of : Yes Patient phones for refill(s): Requested Prescriptions Pending Prescriptions Disp Refills carvedilol (COREG) 25 mg tablet Sig: Take 1 tablet by mouth two times a day. Per Cardio levothyroxine (LEVOXYL) 25 mcg tablet 90 tablet 1 Sig: Take 1 tablet by mouth once daily. Along with your 200 mcg tab for a total of 225 mcg a day. Take on empty stomach. For Thyroid losartan (COZAAR) 50 mg tablet 90 tablet 1 Sig: Take 1 tablet by mouth once daily. omeprazole (PRILOSEC) 40 mg capsule 180 capsule 1 Sig: Take 1 capsule by mouth two times a day. spironolactone (ALDACTONE) 100 mg tablet 90 tablet 1 Sig: TAKE ONE TABLET ONCE PER DAY AT THE SAME TIME EVERY DAY empagliflozin (JARDIANCE) 10 mg tablet 90 tablet 1 Sig: Take 1 tablet by mouth once daily. Take 1 tablet once daily in the morning clonazePAM (KLONOPIN) 0.5 mg tablet 270 tablet 0 Sig: Take 1 tablet by mouth three times a day for 90 days. levothyroxine (SYNTHROID) 200 mcg tablet 90 tablet 1 Sig: Take 1 tablet by mouth once daily. montelukast (SINGULAIR) 10 mg tablet 90 tablet 1 Sig: Take 1 tablet by mouth daily at bedtime. Date of last office visit in primary care: 09/11/2023 Date of next office visit in primary care: 03/18/2024 Please advise. Thank you. Alex Geller LPN. documented in this encounter [facility] 01-24-2024 Miscellaneous Notes PDMP website checked and validated. All prescriptions have been APPROPRIATELY filled. No suspicious activity was identified. 01/24/2024 by Rich Nicholson APRN.PSYCHIATRY PHYSICIAN The following approved medication requests have been transmitted electronically. Requested Prescriptions Signed Prescriptions Disp Refills baclofen 10 mg tablet 90 tablet 1 Sig: Take 1 tablet by mouth once daily as needed. Authorizing Provider: RICH NICHOLSON pregabalin (LYRICA) 50 mg capsule 180 capsule 1 Sig: Take 1 capsule by mouth two times a day for 90 days. Authorizing Provider: RICH NICHOLSON APRN.PSYCHIATRY PHYSICIAN Source : mychart from patient requesting refill. Delivery : e-script Requested Prescriptions Pending Prescriptions Disp Refills baclofen 10 mg tablet 90 tablet 1 Sig: Take 1 tablet by mouth once daily as needed. pregabalin (LYRICA) 50 mg capsule 180 capsule 1 Sig: Take 1 capsule by mouth two times a day for 90 days. DX : Patient last seen: 02/01/2023 Next Appointment : None Jasmin Bellamy documented in this encounter [facility] 01-24-2024 Miscellaneous Notes The following approved medication requests have been transmitted electronically. Requested Prescriptions Signed Prescriptions Disp Refills dimethyl fumarate (TECFIDERA) [address] 180 capsule 3 Sig: Take 1 capsule (240 mg) by mouth two times a day. Authorizing Provider: RICH NICHOLSON APRN.PSYCHIATRY PHYSICIAN Source : mychart from patient requesting refill. Delivery : e-script Requested Prescriptions Pending Prescriptions Disp Refills dimethyl fumarate (TECFIDERA) [address] 180 capsule 3 Sig: Take 1 capsule (240 mg) by mouth two times a day. DX : Patient last seen: 02/01/2023 Next Appointment : None Jasmin Bellamy documented in this encounter [facility] 11-11-2023 Miscellaneous Notes MERLE: 09/11/23-6 month F/U with PCP No OV to [facility] since for COVID sx/dx. Elizabet Gregg MA documented in this encounter [facility] 09-13-2023 Miscellaneous Notes Pt notified. Viviana Hill Ma Let patient know her rib x-rays were ok. Received results of pt's x-ray done at [facility] ordered by Dr Fish. Scan on 09/13/2023 11:08 AM by Provider, VITALIY Vela: X-ray documented in this encounter [facility] 09-11-2023 History of Presen t illness Narrative Chief Complaint Patient presents with: F/U 6 months HPI Romi Rodrigez is a 38 year old female who presents here today for 6 month follow up. Patient with Hx of HTN, general anxiety, depression, hypothyroidism, hyperlipidemia, Migraines, systolic CHF, Takotsubo cardiopathy, GERD, MS as well as those reviewed and addressed below. Any new concerns today? Patient re-herniated her disc back in March. Has been seeing her chiropractor and did a MRI. Disc was re-herniated but not as bad and also had scar tissue. Is feeling better. Any recent ER/hospital visits? None Patient sees [facility] - last visit 02/2023 Patient sees Neurology for MS Patient last saw Cardiology - [facility] 02/2023 Past medical history, appointments, medications, allergies reviewed. 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 Downing-Santos Neuro Muscle spasm 12/16/2019 Related to MS. On Clonopin Obesity, Class II, BMI 35-39.9 08/15/2022 Obesity, Class III, BMI 40-49.9 (morbid obesity) (HCC) 08/15/2022 PCOS (polycystic ovarian syndrome) 03/14/2016 PMH - PAST MEDICAL HISTORY OF radioactive iiodine Postprocedural hypothyroidism 04/23/2003 Seasonal allergies 07/26/2021 Takotsubo cardiomyopathy 03/14/[address] Trevino Previous Surgical History PAST SURGICAL HISTORY Procedure Laterality Date 2D ECHO (EXEP) 06/21/2020 EF=40%, mild syst dysf 2D ECHO (EXEP) 04/12/2021 EF=45%, mild syst dysf, trival ND, TI 2D ECHO (EXEP) 08/08/2021 EF=45%, no significant valve disease ANKLE ARTHROSCOPY/SURGERY Right ECHO LVEF 37% ECHOCARDIOGRAM 05/29/2017 LEXISCAN STRESS TEST 06/21/2020 EF=41% , changes consistent with previous ND, no new reversible ischemic areas. PAST SURGICAL HISTORY OF arthroscopic knee surgery on right PAST SURGICAL HISTORY OF reconstructive to right leg for dog bite PAST SURGICAL HISTORY OF TMJ surgery which helped head pain. PAST SURGICAL HISTORY OF Jaw arthroscopy/surgery PAST SURGICAL HISTORY OF 2013 breast reduction PAST SURGICAL HISTORY OF 01/15/2017 micodiscectomy L4-L5 PAST SURGICAL HISTORY OF Bilateral 12/2018 Lasik surgery Family History FAMILY HISTORY Problem Relation Age of Onset other (diabetes mellitus) Mother other (pancreatic cancer) Mother 65 Coronary Artery Disease Father from [place] age 60 other (Sudden ) Father other (ovarian cyst) Sister oophorectomy other (endometriosis) Sister other (post concussion syndrome) Sister COPD Maternal Grandmother other (atrial fibrillation) Maternal Grandmother other (strokes) Maternal Grandmother other (brain tumor) Other Miscarriages / Stillbirths Other other (multiple sclerosis) Other mothers cousin with MS Patient Allergies ALLERGIES Allergen Reactions Michelle [Fexofenadi* Hives Lidocaine Rash, Hives Lisinopril Swelling Angio edema Buspar [Buspirone H* Other: See Comments Lack of efficacy. Codeine Intolerance, GI Upset Morphine Vomiting extreme nausea and vomiting Paxil [Paroxetine H* Other: See Comments Made depression worse Prednisone Other: See Comments heart racing and face was beet red. Prozac [Fluoxetine * Other: See Comments Made depression worse Tape [Adhesive Tape* Unknown Wellbutrin [Bupropi* Other: See Comments Made depression worse Zoloft [Sertraline * Other: See Comments Made depression worse Current Medications Current Outpatient Medications on File Prior to Visit Medication Sig losartan (COZAAR) 50 mg tablet Take 1 tablet by mouth once daily. omeprazole (PRILOSEC) 40 mg capsule Take 1 capsule by mouth two times a day. spironolactone (ALDACTONE) 100 mg tablet TAKE ONE TABLET ONCE PER DAY AT THE SAME TIME EVERY DAY empagliflozin (JARDIANCE) 10 mg tablet Take 1 tablet by mouth once daily. Take 1 tablet once daily in the morning clonazePAM (KLONOPIN) 0.5 mg tablet Take 1 tablet by mouth three times a day for 90 days. pregabalin (LYRICA) 25 mg capsule Take 1 capsule by mouth two times a day for 30 days. dimethyl fumarate (TECFIDERA) [address] Take 1 capsule (240 mg) by mouth two times a day. levothyroxine (SYNTHROID) 200 mcg tablet Take 1 tablet by mouth once daily. montelukast (SINGULAIR) 10 mg tablet Take 1 tablet by mouth daily at bedtime. levothyroxine (LEVOXYL) 25 mcg tablet Take 1 tablet by mouth once daily. Along with your 200 mcg tab for a total of 225 mcg a day. Take on empty stomach. For Thyroid baclofen (LIORESAL) 10 mg tablet Take 1 tablet by mouth once daily as needed. busPIRone (BUSPAR) 15 mg tablet 1 tab three times a day QUEtiapine (SEROQUEL) 50 mg tablet Take 1 tablet by mouth daily at bedtime. Drospirenone-Ethinyl Estradiol 3-0.03 mg per tablet Take 1 tablet by mouth once daily. For continuous use. Take active pills only for 4 packs then one week of placebo pills. meclizine (ANTIVERT) 12.5 mg tab Take 1 tablet by mouth three times daily as needed (dizziness). carvedilol (COREG) 25 mg tablet Take 1 tablet by mouth twice daily. Per Cardio fluticasone (FLONASE) 50 mcg/actuation nasal spray Use 2 Sprays in each nostril once daily. Rinse mouth after use. Cetirizine 10 mg cap Take by mouth. biotin 5 mg tab Take 5,000 mg by mouth once daily. omega-3 fatty acids 1,000 mg cap Take 1,000 mg by mouth once daily. Cholecalciferol, Vitamin D3, 1,000 unit cap Take 1,000 Units by mouth once daily. pyridoxine hcl(VITAMIN B-6 100 MG TAB) One daily. MULTI-VITAMIN TAB 1 tablet daily CALCIUM 500 MG TAB 1 tablet daily No current facility-administered medications on file prior to visit. Social History Social History Tobacco Use Smoking status: Never Smokeless tobacco: Never Vaping Use Vaping Use: Never used Substance Use Topics Alcohol use: Yes Comment: seldom Drug use: No Review of Symptoms REVIEW OF SYSTEMS GENERAL: No weight loss, malaise or fevers NECK: Negative for lumps, goiter, pain and significant neck swelling RESPIRATORY: Negative for cough, hemoptysis, wheezing, COPD, dyspnea or shortness of breath CARDIOVASCULAR: Negative for chest pain, leg swelling, hypertension, CHF or palpitations GI: No nausea, vomiting, or diarrhea and No heartburn or reflux symptoms ENDOCRINE: Negative for cold or heat intolerance, polyuria, polydipsia and goiter NEURO: No history of headaches, syncope, paralysis, seizures or tremors Right ear has been painful. EXAM: BP 142/101 (BP Site: Right Arm, BP Position: Sitting, BP Cuff Size: Large Adult) Pulse 80 Resp 18 Wt 136.1 kg (300 lb) LMP 08/26/2023 (Approximate) BMI 43.05 kg/m BP 128/84 Pulse 80 Resp 18 Wt 136.1 kg (300 lb) LMP 08/26/2023 (Approximate) BMI 43.05 kg/m Last 5 Encounter Wt Readings: Date: Wt: 09/11/2023 136.1 kg (300 lb) 03/06/2023 130.6 kg (288 lb) 03/01/2023 130.6 kg (288 lb) 08/15/2022 119.7 kg (264 lb) 06/20/2022 120.2 kg (265 lb) General Appearance: Well appearing, alert, in no acute distress, well-hydrated, well nourished.. Neck: Supple, no adenopathy; thyroid symmetric, normal size, no bruits. Ears: left TM, canal and ear normal. Right canal blocked with wax. Lungs: Lungs clear to auscultation. No wheezing, rhonchi, rales.. Heart: RRR without murmur, gallop, or rubs. No ectopy. Abdomen: Normal abdominal exam, Abdomen soft, non-tender. Bowel sounds normal. No masses, organomegaly. Extremities: No deformities, edema, skin discoloration, Good capillary refill. . Musculoskeletal: has tenderness with palpation over the lower anterior ribs. Muscular strength intact, No joint swelling, deformity, or tenderness. Peripheral Pulses: Normal. Neurologic: Gait normal. . Sensation to light touch intact. Health Maintenance List BP Controlled (<130/80) due on 01/25/2022 Influenza Vaccine(1) due on 06/07/2023 Covid-19 Vaccine(2022- season) due on 06/07/2023 Mammogram Screening Never done Annual PCP Team Chronic Disease Visit due on 03/06/2024 Pap Testing due on 03/01/2028 HPV Testing due on 03/01/2028 DTaP,Tdap,Td Vaccine(3 - Td or Tdap) due on 09/03/2028 Pneumococcal Vaccine Completed HPV Vaccine Aged Out Hepatitis B Vaccine Discontinued Hepatitis C Screening Discontinued HIV Screening Discontinued Data reviewed Component Latest Ref Rng & Units 08/30/2023 08/30/2023 12:00 AM 12:00 AM Triglyceride 149 mg/dL 236 (A) 236 (A) CHOLESTEROL, TOTAL 0 - 200 MG/DL 214 (A) HDC-L 41 mg/dL 70 (A) LDL Chol, calculated 130 MG/DL 97 VLDL 5 - 40 Ratio 47 (A) Cholesterol, Total 200 214 (A) HDL CHOLESTEROL 50 70 LDL CHOLESTEROL 130 97 Iron 50 - 170 119 TIBC 250 - 450 408 Iron % Saturation 15 - 55 29.2 Hemoglobin A1C 3.8 - 5.6 % 5.1 5.1 TSH 0.358 - 3.74 IU/ml 11.00 (A) 11.0 (A) Ferritin 8 - 252 42 Insulin 2.6 - 37.6 13 A/P ASSESSMENT/PLAN: 1. Essential hypertension - ICD9: 401.9, ICD10: I10 (primary diagnosis) - Controlled - Continue current medications - Recommend home blood pressure monitoring, to bring results to next visit - Encouraged sodium restriction, DASH or Mediterranean diet - Recommend regular aerobic exercise 2. Mixed hyperlipidemia - ICD9: 272.2, ICD10: E78.2 - Controlled - Counseled on healthy diet and regular exercise 3. Postprocedural hypothyroidism - ICD9: 244.0, ICD10: E89.0 - Instructed patient on importance of taking on an empty stomach either first thing in the morning or at bedtime. - continue current dose of Synthroid - getting a repeat TSH 11/01/2023 4. GERD without esophagitis - ICD9: 530.81, ICD10: K21.9 - Continue treatment with Prilosec 40 mg BID 5. Migraine with aura and without status migrainosus, not intractable - ICD9: 346.00, ICD10: G43.109 - stable no changes. 6. Multiple sclerosis (HCC) - ICD9: 340, ICD10: G35 - management per neuro 7. Generalized anxiety disorder - ICD9: 300.02, ICD10: F41.1 - cont management with Psych 8. Depression, unspecified depression type - ICD9: 311, ICD10: F32.A - as per #7 9. Chronic systolic heart failure (HCC) - ICD9: 428.22, ICD10: I50.22 - management per cardio 10. Cardiomyopathy, unspecified type (HCC) - ICD9: 425.4, ICD10: I42.9 - as per #10 11. Rib pain - ICD9: 786.50, ICD10: R07.81 Check - XR RIBS BILATERAL/CHEST 4V 12. Obesity, Class III, BMI 40-49.9 (morbid obesity) (HCC) - ICD9: 278.01, ICD10: E66.01 Weight increasing - Behavioral intervention - CONSULT TO WEIGHT MANAGEMENT NAVIGATION 13. Impacted cerumen of right ear - ICD9: 380.4, ICD10: H61.21 Discussed irrigation with wam water. Verbal consent provided. Right ear was irrigated with warm water for the removal of wax per nursing. Patient tolerated well. - AMB F/u in 6 months extensive check CMP, Lipid, UA, A1c, B12, Mg, CBC I spent a total of 44 minutes on the date of the service which included preparing to see the patient, [id number] patient care, completing clinical documentation, performing a medically appropriate examination, counseling and educating the patient/family/caregiver and ordering medications, tests, or procedures. Isael Fish MD documented in this encounter [facility] 09-10-2023 Miscellaneous Notes Spoke with pt and information listed below given. Pt verbalizes understanding. Kayli Brown LPN Let patient know her carvedilol comes from Cardiology, Dr. Butt. Patient has been identified by name and date of : Yes Requested Prescriptions Pending Prescriptions Disp Refills carvedilol (COREG) 25 mg tablet Sig: Take 1 tablet by mouth two times a day. Per Cardio losartan (COZAAR) 50 mg tablet 90 tablet 1 Sig: Take 1 tablet by mouth once daily. omeprazole (PRILOSEC) 40 mg capsule 180 capsule 1 Sig: Take 1 capsule by mouth two times a day. spironolactone (ALDACTONE) 100 mg tablet 90 tablet 1 Sig: TAKE ONE TABLET ONCE PER DAY AT THE SAME TIME EVERY DAY empagliflozin (JARDIANCE) 10 mg tablet 90 tablet 1 Sig: Take 1 tablet by mouth once daily. Take 1 tablet once daily in the morning clonazePAM (KLONOPIN) 0.5 mg tablet 270 tablet 0 Sig: Take 1 tablet by mouth three times a day for 90 days. montelukast (SINGULAIR) 10 mg tablet 90 tablet 1 Sig: Take 1 tablet by mouth daily at bedtime. RX INSTRUCTIONS: Patient aware RX will be sent to pharmacy. No need to notify patient. HUNTER Yarbrough 02/2023 Nov 09/2023 Last refill; 02/2023 documented in this encounter [facility] 09-09-2023 Miscellaneous Notes The following approved medication requests have been transmitted electronically. Requested Prescriptions Signed Prescriptions Disp Refills pregabalin (LYRICA) 25 mg capsule 60 capsule 5 Sig: Take 1 capsule by mouth two times a day for 30 days. Authorizing Provider: KATHIE GONZALEZ dimethyl fumarate (TECFIDERA) [address] 180 capsule 3 Sig: Take 1 capsule (240 mg) by mouth two times a day. Authorizing Provider: KATHIE GONZALEZ APRN.ALANNAH Source : mychart from patient requesting refill. Delivery : e-script Requested Prescriptions Pending Prescriptions Disp Refills pregabalin (LYRICA) 25 mg capsule 60 capsule 5 Sig: Take 1 capsule by mouth two times a day for 30 days. dimethyl fumarate (TECFIDERA) [address] 180 capsule 3 Sig: Take 1 capsule (240 mg) by mouth two times a day. DX : Patient last seen: 02/01/2023 Next Appointment : None Jasmin Bellamy documented in this encounter [facility] 09-09-2023 Miscellaneous Notes The following approved medication requests have been transmitted electronically. Requested Prescriptions Signed Prescriptions Disp Refills levothyroxine (SYNTHROID) 200 mcg tablet 90 tablet 1 Sig: Take 1 tablet by mouth once daily. Authorizing Provider: ISAEL FISH MD Patient has been identified by name and date of : Yes Requested Prescriptions Pending Prescriptions Disp Refills levothyroxine (SYNTHROID) 200 mcg tablet 90 tablet 1 Sig: Take 1 tablet by mouth once daily. RX INSTRUCTIONS: Patient aware RX will be sent to pharmacy. No need to notify patient. Evelina Peter MA Merle 02/2023 Nov 09/2023 Last refill; 05/2023 documented in this encounter [facility] 09-02-2023 Miscellaneous Notes The following approved medication requests have been transmitted electronically. Requested Prescriptions Signed Prescriptions Disp Refills levothyroxine (LEVOXYL) 25 mcg tablet 90 tablet 1 Sig: Take 1 tablet by mouth once daily. Along with your 200 mcg tab for a total of 225 mcg a day. Take on empty stomach. For Thyroid Authorizing Provider: ISAEL FISH MD Spoke with patient and gave results. She does take her 200 mcg first thing in the morning. Please send [facility]. Patient indicated that she has notices more fatigue and weight gain for no reason. Evelina Peter MA Let patient know her thyroid lab shows she is not getting enough replacement levothyroxine. Verify she has been taking the 200 mcg tab once a day. If she has then I want to add on a 25 mcg tab to tab with the 200 mcg tab daily. I script will be sent in and an order will be placed to get a repeat tyroid lab in 2 months. Rest of her labs will be discussed at her up coming visit. OK to wait for Dr Fish or Rmoi to evaluate at their return Bill Young MD Dr Young can you review labs Dr Fish ordered? Pt's TSH is 11.00. Dr Fish is out until 09/04 and not sure if Romi will be in on Sat. Thank you! Marina Davila LPN Received pt's labs done at [facility]. See links below. Marina Davila LPN Scan on 08/30/2023 10:36 AM by Provider, ExternalVITALIY: Miscellaneous Lab Scan on 08/30/2023 9:42 AM by Provider, ExternalVITALIY: Chemistry Scan on 08/30/2023 9:09 AM by Provider, ExternalVITALIY: Chemistry documented in this encounter [facility] 06-13-2023 History of Presen t illness Narrative MRI results and Lab results attached below: View External Labs - Miscellaneous Lab [ID [id number]] View External Imaging - MRI [ID [id number]] Viviana Hill Ma documented in this encounter [facility] 05-22-2023 Miscellaneous Notes Last refill 01/07/23 Qty: 90 with 1 refill MERLE 03/06/23 NOV 09/11/23 Marina Davila LPN documented in this encounter [facility] 05-15-2023 Miscellaneous Notes The following approved medication requests have been transmitted electronically. Requested Prescriptions Signed Prescriptions Disp Refills clonazePAM (KLONOPIN) 0.5 mg tablet 270 tablet 0 Sig: Take 1 tablet by mouth three times daily for 90 days. Authorizing Provider: ISAEL FISH MD PDMP website checked and validated. All prescriptions have been APPROPRIATELY filled. No suspicious activity was identified. 05/15/2023 by Isael Fish MD Patient phones requesting refills as follows: Requested Prescriptions Pending Prescriptions Disp Refills clonazePAM (KLONOPIN) 0.5 mg tablet 270 tablet 0 Sig: Take 1 tablet by mouth three times daily for 90 days. MERLE-03/06/23 Labs-02/22/23 NOV-09/11/23 Please review and advise. Flower Schroeder LPN documented in this encounter [facility] 03-06-2023 Instructions Isael Fish MD - 03/06/2023 5:06 PM EDT Please get labs done on or after 08/23/2023 prior to your next visit. documented in this encounter [facility] 03-06-2023 History of Presen t illness Narrative Chief Complaint Patient presents with: Physical HPI Romi Rodrigez is a 37 year old female who presents here today for Physical. Office visit - Physical Patient with Hx of HTN, general anxiety, depression, hypothyroidism, hyperlipidemia, Migraines, systolic CHF, Takotsubo cardiopathy, GERD, MS as well as those reviewed and addressed below. Patient has been doing ok. Has not had any new issues and no new concerns today. Continues to have difficulty losing weight. Has a lot of stress at home. Sister has been liver with her since her mother and she has post concussion syndrome with PTSD and anxiety. Continues to work with her therapist. Patient recently saw Cardio and advised she change the metformin to Jardiance and stop the gemfibrozil. Patient developed MS hug and is on lyrica per neuro. Office visit - 6 month follow up Patient with Hx of HTN, general anxiety, depression, hypothyroidism, hyperlipidemia, Migraines, systolic CHF, Takotsubo cardiopathy, GERD, MS as well as those reviewed and addressed below. Past medical history, appointments, medications, allergies reviewed. 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 Downing-Santos Neuro Muscle spasm 12/16/2019 Related to MS. On Clonopin Obesity, Class II, BMI 35-39.9 08/15/2022 PCOS (polycystic ovarian syndrome) 03/14/2016 PMH - PAST MEDICAL HISTORY OF radioactive iiodine Postprocedural hypothyroidism 04/23/2003 Seasonal allergies 07/26/2021 Takotsubo cardiomyopathy 03/14/[address] Trevino Previous Surgical History PAST SURGICAL HISTORY Procedure Laterality Date 2D ECHO (EXEP) 06/21/2020 EF=40%, mild syst dysf 2D ECHO (EXEP) 04/12/2021 EF=45%, mild syst dysf, trival ND, TI 2D ECHO (EXEP) 08/08/2021 EF=45%, no significant valve disease ANKLE ARTHROSCOPY/SURGERY Right ECHO LVEF 37% ECHOCARDIOGRAM 05/29/2017 LEXISCAN STRESS TEST 06/21/2020 EF=41% , changes consistent with previous ND, no new reversible ischemic areas. PAST SURGICAL HISTORY OF arthroscopic knee surgery on right PAST SURGICAL HISTORY OF reconstructive to right leg for dog bite PAST SURGICAL HISTORY OF TMJ surgery which helped head pain. PAST SURGICAL HISTORY OF Jaw arthroscopy/surgery PAST SURGICAL HISTORY OF 2013 breast reduction PAST SURGICAL HISTORY OF 01/15/2017 micodiscectomy L4-L5 PAST SURGICAL HISTORY OF Bilateral 12/2018 Lasik surgery Family History FAMILY HISTORY Problem Relation Age of Onset other (diabetes mellitus) Mother other (pancreatic cancer) Mother 65 Coronary Artery Disease Father from [place] age 60 other (Sudden ) Father other (ovarian cyst) Sister oophorectomy other (endometriosis) Sister COPD Maternal Grandmother other (atrial fibrillation) Maternal Grandmother other (strokes) Maternal Grandmother other (brain tumor) Other Miscarriages / Stillbirths Other other (multiple sclerosis) Other mothers cousin with MS Patient Allergies ALLERGIES Allergen Reactions Michelle [Fexofenadi* Hives Lidocaine Rash, Hives Lisinopril Swelling Angio edema Buspar [Buspirone H* Other: See Comments Lack of efficacy. Codeine Intolerance, GI Upset Morphine Vomiting extreme nausea and vomiting Paxil [Paroxetine H* Other: See Comments Made depression worse Prednisone Other: See Comments heart racing and face was beet red. Prozac [Fluoxetine * Other: See Comments Made depression worse Tape [Adhesive Tape* Unknown Wellbutrin [Bupropi* Other: See Comments Made depression worse Zoloft [Sertraline * Other: See Comments Made depression worse Current Medications Current Outpatient Medications on File Prior to Visit Medication Sig Drospirenone-Ethinyl Estradiol 3-0.03 mg per tablet Take 1 tablet by mouth once daily. For continuous use. Take active pills only for 4 packs then one week of placebo pills. pregabalin (LYRICA) 25 mg capsule Take 1 capsule by mouth twice daily for 30 days. dimethyl fumarate (TECFIDERA) [address] Take 1 capsule (240 mg) by mouth twice daily. montelukast (SINGULAIR) 10 mg tablet Take 1 tablet by mouth daily at bedtime. levothyroxine (SYNTHROID) 200 mcg tablet Take 1 tablet by mouth once daily. meclizine (ANTIVERT) 12.5 mg tab Take 1 tablet by mouth three times daily as needed (dizziness). losartan (COZAAR) 50 mg tablet Take 1 tablet by mouth once daily. gemfibrozil (LOPID) 600 mg tablet Take 1 tablet by mouth twice daily. omeprazole (PRILOSEC) 40 mg capsule Take 1 capsule by mouth twice daily. clonazePAM (KLONOPIN) 0.5 mg tablet Take 1 tablet by mouth three times daily for 90 days. busPIRone (BUSPAR) 15 mg tablet 1 tab three times a day QUEtiapine (SEROQUEL) 200 mg tablet Take 1 tablet by mouth daily at bedtime. (Patient taking differently: Take 50 mg by mouth daily at bedtime.) metFORMIN (GLUCOPHAGE) 500 mg tablet Take 1 tablet by mouth twice daily with meals. spironolactone (ALDACTONE) 100 mg tablet TAKE ONE TABLET ONCE PER DAY AT THE SAME TIME EVERY DAY baclofen (LIORESAL) 10 mg tablet Take 1 tablet by mouth once daily as needed. carvedilol (COREG) 25 mg tablet Take 1 tablet by mouth twice daily. Per Cardio fluticasone (FLONASE) 50 mcg/actuation nasal spray Use 2 Sprays in each nostril once daily. Rinse mouth after use. Cetirizine 10 mg cap Take by mouth. biotin 5 mg tab Take 5,000 mg by mouth once daily. omega-3 fatty acids 1,000 mg cap Take 1,000 mg by mouth once daily. Cholecalciferol, Vitamin D3, 1,000 unit cap Take 1,000 Units by mouth once daily. pyridoxine hcl(VITAMIN B-6 100 MG TAB) One daily. MULTI-VITAMIN TAB 1 tablet daily CALCIUM 500 MG TAB 1 tablet daily No current facility-administered medications on file prior to visit. Social History Social History Tobacco Use Smoking status: Never Smokeless tobacco: Never Vaping Use Vaping Use: Never used Substance Use Topics Alcohol use: Yes Comment: seldom Drug use: No Review of Symptoms REVIEW OF SYSTEMS GENERAL: No weight loss, malaise or fevers HEENT: Negative for frequent or significant headaches, No changes in hearing or vision, no nose bleeds or other nasal problems NECK: Negative for lumps, goiter, pain and significant neck swelling RESPIRATORY: Negative for cough, hemoptysis, wheezing, COPD, dyspnea or shortness of breath CARDIOVASCULAR: Negative for chest pain, leg swelling, hypertension, CHF or palpitations. GI: No nausea, vomiting, or diarrhea. Having breakthrough GERD symptoms several days a week : No history of dysuria, blood MUSCULOSKELETAL: Negative for new or changes on her typical joint pain or swelling, back pain or muscle pain SKIN: Negative for lesions, rash, and itching PSYCH: working with Psych on management HEMATOLOGY/LYMPHOLOGY: Negative for prolonged bleeding, bruising easily or swollen nodes ENDOCRINE: Negative for cold or heat intolerance, polyuria, polydipsia and goiter NEURO: No history of headaches, syncope, paralysis, seizures or tremors EXAM: BP 134/84 Pulse 78 Resp 14 Ht 177.8 cm (5' 10) Wt 130.6 kg (288 lb) LMP 02/08/2023 (Approximate) BMI 41.32 kg/m Last 6 Encounter Wt Readings: Date: Wt: 03/06/2023 130.6 kg (288 lb) 03/01/2023 130.6 kg (288 lb) 08/15/2022 119.7 kg (264 lb) 06/20/2022 120.2 kg (265 lb) 02/28/2022 117.9 kg (260 lb) 01/31/2022 120.7 kg (266 lb) General Appearance: Well appearing, alert, in no acute distress, well-hydrated, well nourished, obese.. Head: Normocephalic, no masses, lesions, tenderness or abnormalities. Eyes: Anicteric sclera. Pupils are equally round and reactive to light. Extraocular movements are intact. . Ears: External ears normal, canals clear. Nose/Sinuses: Nares normal, septum midline, mucosa normal, no drainage or sinus tenderness. Oropharynx: Lips, mucosa, and tongue normal, teeth and gums normal, oropharynx normal. Neck: Supple, no adenopathy; thyroid symmetric, normal size, no bruits. Lungs: Lungs clear to auscultation. No wheezing, rhonchi, rales.. Heart: RRR without murmur, gallop, or rubs. No ectopy. Abdomen: Normal abdominal exam, Abdomen soft, non-tender. Bowel sounds normal. No masses, organomegaly. Extremities: No deformities, edema, skin discoloration, Good capillary refill. . Musculoskeletal: Muscular strength intact, No joint swelling, deformity, or tenderness. Peripheral Pulses: Normal. Neurologic: Gait normal. Reflexes normal and symmetric. Sensation to light touch and crainal nerves 2-12 intact.. Health Maintenance List BP CONTROLLED (<130/80) due on 01/25/2022 ANNUAL PCP TEAM CHRONIC DISEASE VISIT due on 08/15/2023 PAP TESTING due on 04/20/2024 HPV TESTING due on 04/20/2024 DTAP,TDAP,TD(2 - Td or Tdap) due on 09/03/2028 INFLUENZA Completed COVID-19 VACCINE Completed PNEUMOCOCCAL Completed HEPATITIS B Discontinued HEPATITIS C SCREENING Discontinued HIV SCREENING Discontinued Data reviewed Component Latest Ref Rng & Units 12/27/2021 01/26/2022 08/14/2022 08/14/2022 02/22/2023 12:00 AM 12:00 AM NA 136 - 145 mmol/L 137 137 137 K 3.5 - 5.1 mmol/L 4.2 4.0 4.2 Chloride 98 - 107 MEQ/L 103 101 101 105 CO2 21 - 32 MEQ/L 29 27.0 25 Glucose 74 - 106 MG/DL 106 86 86 95 BUN 7 - 18 MG/DL 14 13 13 Creatinine 0.6 - 1.3 MG/DL 0.72 0.65 0.65 0.65 GFR mL/MIN 97 108 108 108 Total Protein 6.4 - 8.2 gm/dL 7.9 8.3 (A) 7.6 Albumin 3.2 - 4.6 gm/dL 3.9 3.9 3.4 Calcium 8.5 - 10.1 mg/dL 9.0 9.2 9.2 8.9 Bili Total 0.2 - 1 mg/dL 0.3 0.3 0.3 AST 8 - 37 U/L 15 18 17 ALT (SGPT) 12 - 78 U/L 26 24 23 Alk Phos Total 45 - 117 U/L 49 55 56 Phosphorus 2.5 - 4.9 3.5 3.7 Direct Bilirubin 0.0 - 0.3 0.1 GFR AFR AMER mL/MIN 131 131 Magnesium 1.6 - 2.6 1.9 2.1 WBC 3.4 - 10.8 K/uL 5.1 4.3 RBC 4.14 - 5.80 M/uL 4.52 4.29 Hemoglobin 12.6 - 17.7 g/dL 13.2 12.8 Hematocrit 37.5 - 51.0 % 39.1 37 (A) MCV 79 - 97 fL 86.5 86.2 MCH 26.6 - 33 Pg 29.2 29.8 MCHC 31.5 - 35.7 g/dL 33.8 34.6 RDW 12.3 - 15.4 % 12.0 (A) 12.8 Platelet Count 150 - 379 k/uL 306 267 Neutrophil % % 63.7 62.4 Lymphocyte % % 22.6 26.0 Monocyte % % 10.9 8.6 Eosinophil % % 2.2 2.3 Basophil % % 0.4 0.5 NEUTROPHILS ABSOLUTE 1.4 - 7.0 k/uL 3.2 2.7 LYMPHS ABSOLUTE 0.7 - 3.1 k/uL 1.14 1.12 Sodium 136 - 145 MEQ/L 137 Potassium 3.5 - 5.1 MEQ/L 4.0 Cholesterol, Total 200 181 232 (A) 191 Triglyceride 150 119 106 116 HDL CHOLESTEROL 50 67 96 76 LDL CHOLESTEROL 92 90 115 147 (A) Vitamin D 25 Hydroxy 31.0 - 80.0 ng/mL 108.0 (H) TSH 0.358 - 3.74 IU/ml 1.6 1.06 o.69 Hemoglobin A1C 0 - 5.7 % 4.8 4.8 LDH 84 - 246 164 Uric Acid 2.6 - 6.0 3.7 Vitamin B12 211 - 911 518 A/P ASSESSMENT/PLAN: 1. Well adult exam - ICD9: V70.0, ICD10: Z00.00 (primary diagnosis) - Counseled on healthy diet and regular exercise - Calcium intake with supplements or by diet of 1000 mg/day for under 50, 0333-2322 mg/day for 50+ - Discussed need and benefit for weight loss. BMI 41.32 kg/(m^2) 2. Essential hypertension - ICD9: 401.9, ICD10: I10 - good control - Continue current medication(s) - Recommended regular aerobic exercise. - Recommend home blood pressure monitoring, to bring results in on next visit - Goal of BP <130/80 3. Mixed hyperlipidemia - ICD9: 272.2, ICD10: E78.2 - good control - Encouraged following a low fat, low cholesterol diet. - Discussed the benefits of regular aerobic exercise and weight loss. - Encouraged following a low carbohydrate, healthy oil intake diet. - Continue current therapy. Will stop the gemfibrozil 4. Postprocedural hypothyroidism - ICD9: 244.0, ICD10: E89.0 - Instructed patient on importance of taking on an empty stomach either first thing in the morning or at bedtime. - continue current dose of Synthroid 5. GERD without esophagitis - ICD9: 530.81, ICD10: K21.9 - Continue treatment with Prilosec 40 mg BID - consult General Surgery: Dr. Gupta 6. Generalized anxiety disorder - ICD9: 300.02, ICD10: F41.1 - management per psych 7. Depression, unspecified depression type - ICD9: 311, ICD10: F32.A - as per #6 8. Migraine with aura and without status migrainosus, not intractable - ICD9: 346.00, ICD10: G43.109 - clinically stable no changes. 9. Takotsubo cardiomyopathy - ICD9: 429.83, ICD10: I51.81 - management per Cardio 10. Cardiomyopathy, unspecified type (HCC) - ICD9: 425.4, ICD10: I42.9 - will stop metformin and start Jardiance 10 mg a day. - LOSARTAN 50 MG TABLET 11. Chronic systolic heart failure (HCC) - ICD9: 428.22, ICD10: I50.22 - as per #10 12. Multiple sclerosis (HCC) - ICD9: 340, ICD10: G35 - management per Neuro 13. Obesity, Class III, BMI 40-49.9 (morbid obesity) (HCC) - ICD9: 278.01, ICD10: E66.01 Weight increasing - Behavioral intervention - discussed weight navigation referral or bariatric referral 14. PCOS (polycystic ovarian syndrome) - ICD9: 256.4, ICD10: E28.2 - will stop the metformin and start jardiance. Requested Prescriptions Signed Prescriptions Disp Refills busPIRone (BUSPAR) 15 mg tablet 270 tablet 1 Si tab three times a day losartan (COZAAR) 50 mg tablet 90 tablet 1 Sig: Take 1 tablet by mouth once daily. omeprazole (PRILOSEC) 40 mg capsule 180 capsule 1 Sig: Take 1 capsule by mouth twice daily. QUEtiapine (SEROQUEL) 50 mg tablet 90 tablet 1 Sig: Take 1 tablet by mouth daily at bedtime. spironolactone (ALDACTONE) 100 mg tablet 90 tablet 1 Sig: TAKE ONE TABLET ONCE PER DAY AT THE SAME TIME EVERY DAY empagliflozin (JARDIANCE) 10 mg tablet 90 tablet 1 Sig: Take 1 tablet by mouth once daily. Take 1 tablet once daily in the morning F/u 6 months routine check TSH, Lipid and A1c prior I spent a total of 71 minutes on the date of the service which included preparing to see the patient, [id number] patient care, completing clinical documentation, performing a medically appropriate examination, counseling and educating the patient/family/caregiver and ordering medications, tests, or procedures. Isael Fish MD documented in this encounter [facility] 02-18-2023 Miscellaneous Notes Faxed. Evelina Peter MA Labs ready to be faxed to [facility] for patient. documented in this encounter [facility] 02-12-2023 History of Presen t illness Narrative Scan on 02/12/2023 12:37 PM by External Provider, VITALIY: Consultation - Cardiology documented in this encounter [facility] 02-04-2023 Miscellaneous Notes Faxed. Evelina Peter MA Order ready to be faxed. documented in this encounter [facility] 02-01-2023 History of Presen t illness Narrative Images from the original note were not included. [facility] FOLLOW[facility]/ESTABLISHED PATIENT VIRTUAL VISIT PRINCIPAL NEUROLOGIC DIAGNOSIS: Multiple Sclerosis [facility] FOLLOWUP VISIT MS DISEASE HISTORY: Date of onset: apr-2009 Date of diagnosis: April-2009 Disease course from Onset; RIS with active MRI in past. h/o chronic migraines and 2 fatty masses were found on her brain, was having annual MRI monitoring and one of the MRIs showed lesions. Current MS Disease Therapy: Tecfidera (started August 2017) Previous MS Disease Therapies: - Avonex since 07/2014-due to MRI progression - copaxone 40 mg caused exhaustion after each Saturday injection fatigue had to call off work. Has never had IV steroids, had oral prednisone and it was discontinued due to side effects heart was racing, I was beet red. - copaxone 20 mg started 09/14/2014 (breakthrough disease) - dimethyl fumarate 09/2020- 05/2021 (stopped due to GI intolerance) Last MRI brain: 01/18/23 MRI cervical and thoracic : 11/24/20 CHIEF COMPLAINT: Follow-up on MS disease modifying therapy - Virtual Visit INTERVAL HISTORY: Usual treating team: Isabella/Heath --> Mauro/Heath I have communicated my name and active licensure. The patient's identity and physical location were verified at the time of this visit. Either the patient or their legal inside outside sales representative has been informed of the risks and benefits of -- and alternatives to -- treatment through a remote evaluation and consents to proceed with the evaluation remotely. Today's visit is being completed virtually; pt consented. Accompanied by self. Last seen 12/27/21. Currently taking Tecfidera (generic). GI side effects sinus issues - ongoing the last couple months. Worse since she had COVID (October 2020) - drainage upsets stomach. Wakes up at night - takes claritin, flonase - sometimes gets vertigo from it - only thing that helps is laying down Still having rib pain x 1 year - underneath breast, and on top. Radiates on top. Was taking breath away - PE r/o - lyrica restarted and within 2 days, the wrenching feeling went away. - recently tried tapering off the Lyrica and the symptoms came back. Just restarted on it last week. Starting to improve but not as quickly (still feeling underneath) Back/neck muscles still tight - occasionally takes baclofen but hates taking them and it just makes her sleepy - has massagers, TENS units, works with chiropractor Right big toe and foot numb/tingly REVIEW OF SYSTEMS: Mood: PHQ9 responses reviewed and appear below - working with psychiatrist. Taking less Seroquel (100 mg now). Started on Lexapro 10 mg since October. Responding to stress better. Next appointment next week with psychiatry Spasticity:See HPI Bowel: more gassy Pain:reviewed on nursing intake documentation Neuro-QoL Functions (higher=better functioning) Flowsheet Row [facility] from 12/29/2019 in [facility] Office Visit from 04/25/2018 in [facility] Office Visit from 08/14/2017 in [facility] Upper Extremity Domain T Score 50 56.84 50.03 Lower Extremity Domain T Score 57 62.28 62.28 Cognitive Function Domain T Score 37 46.85 46.85 Positive Affect Well Being T Score -- 63.61 57.39 Ability To Participate In Social Roles T Score 42 47.04 54.53 Satisfaction With Social Roles T Score 41 50.14 49.2 Neuro-QoL Symptoms (higher=worse symptoms) Flowsheet Row [facility] from 12/29/2019 in [facility] Office Visit from 04/25/2018 in [facility] Office Visit from 08/14/2017 in [facility] Sleep Domain T Score 60 55.63 54.3 Fatigue Domain T Score 64 64.84 52.3 Anxiety Domain T Score 72 64.58 65.23 Depression Domain T Score 55 50.36 47.97 Stigma Domain T Score 51 50.07 48.56 Emotional Behavior Dyscontrol T Score -- 50.82 47.39 PAST HISTORY was reviewed and updated: PAST MEDICAL HISTORY Diagnosis Date Cardiomyopathy (HCC) 01/2008 apical balloon syndrome broken heart disease stress reaction to losing her father Chronic systolic heart failure (HCC) Chronic systolic heart failure (HCC) Depression 07/18/2016 Dysmetabolic syndrome 03/14/2016 Essential hypertension 08/16/2017 Family history of pancreatic cancer 06/05/2019 Mother 2019 age 65 Generalized anxiety disorder 03/14/2016 GERD without esophagitis 09/27/2021 History of 2019 novel coronavirus disease (COVID-19) 10/12/2020 10/10/2020 LBBB (left bundle branch block) 03/14/2016 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 Downing-Santos Neuro Muscle spasm 12/16/2019 Related to MS. On Clonopin Obesity, Class II, BMI 35-39.9 08/15/2022 PCOS (polycystic ovarian syndrome) 03/14/2016 PMH - PAST MEDICAL HISTORY OF radioactive iiodine Postprocedural hypothyroidism 04/23/2003 Seasonal allergies 07/26/2021 Takotsubo cardiomyopathy 03/14/2016 Seesandhya Trevino PAST SURGICAL HISTORY Procedure Laterality Date 2D ECHO (EXEP) 06/21/2020 EF=40%, mild syst dysf 2D ECHO (EXEP) 04/12/2021 EF=45%, mild syst dysf, trival ND, TI 2D ECHO (EXEP) 08/08/2021 EF=45%, no significant valve disease ANKLE ARTHROSCOPY/SURGERY Right ECHO LVEF 37% ECHOCARDIOGRAM 05/29/2017 LEXISCAN STRESS TEST 06/21/2020 EF=41% , changes consistent with previous ND, no new reversible ischemic areas. PAST SURGICAL HISTORY OF arthroscopic knee surgery on right PAST SURGICAL HISTORY OF reconstructive to right leg for dog bite PAST SURGICAL HISTORY OF TMJ surgery which helped head pain. PAST SURGICAL HISTORY OF Jaw arthroscopy/surgery PAST SURGICAL HISTORY OF 2013 breast reduction PAST SURGICAL HISTORY OF 01/15/2017 micodiscectomy L4-L5 PAST SURGICAL HISTORY OF Bilateral 12/2018 Lasik surgery MEDICATIONS and ALLERGIES were reviewed and updated. 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 EXAM: General Appearance: well appearing, in no acute distress Mental status evaluation during the interview and examination showed normal level of consciousness, orientation, language, memory, praxis, and higher intellectual function Affect: Normal Speech: normal RESULTS: Monitoring labs: CBC + Diff Component Value Date WBC 5.1 01/26/2022 HB 13.2 01/26/2022 HCT 39.1 01/26/2022 PLT 306 01/26/2022 ABSLYMPH 1.37 12/07/2021 CMP Component Value Date AST 18 08/14/2022 GLUC 86 08/14/2022 GLUC 86 08/14/2022 BUN 13 08/14/2022 CREAT 0.65 08/14/2022 CREAT 0.65 08/14/2022 NA 137 08/14/2022 NA 137 08/14/2022 K 4.0 08/14/2022 K 4.0 08/14/2022 CHLOR 101 08/14/2022 CHLOR 101 08/14/2022 ALT 24 08/14/2022 MRI brain: Most recent MRI from 01/18/23 was reviewed and shows overall T2 burden that is mild and no gadolinium enhancing lesions. Compared to previous MRI from 01/23/22, there are no new T2 lesions in the interval. ASSESSMENT: Romi Rodrigez is a 37 year old female with multiple sclerosis. Patient is on dimethyl fumarate for DMT. Reports good compliance and tolerance with GI side effects. Labs reviewed and acceptable. Continue to monitor q6-12 months. Brain MRI reviewed from 01/18/23 and appears stable compared to 01/23/22. Continue to monitor annually. MRI of the brain and/or spinal cord is being ordered to evaluate for efficacy of multiple sclerosis (MS) disease modifying therapy. Disease activity in MS is often not immediately detectable on history or examination, but is sensitively identified on MRI. If identified, new or active MS lesions on MRI may represent suboptimal response to MS therapy, and would change medical management. Patient reports benefit from Lyrica for MS hug/rib sensations. Discussed titrating up as needed. Consider referral to spasticity group for eval if needed for shoulder/neck stiffness/tightness. Continue to work with psychiatry for mood management. PLAN: 1. Continue dimethyl fumarate 2. Labs q6-12 months 3. Brain MRI in 1 year or sooner if new symptoms 4. Continue Lyrica 5. Consider spasticity group referral 6. Follow-up in 6-12 months I spent a total of 30 minutes on the date of the service which included preparing to see the patient, [id number] patient care, completing clinical documentation, obtaining and/or reviewing separately obtained history, counseling and educating the patient/family/caregiver, ordering medications, tests, or procedures, and communicating results to the patient/family/caregiver. Elder Chao PA-C documented in this encounter [facility] 01-23-2023 History of Presen t illness Narrative Scan on 01/18/2023 4:34 PM by External Provider: Chemistry Scan on 01/18/2023 4:49 PM by External Provider: MRI Scan on 01/18/2023 6:52 PM by External Provider: FAHEEM Peter MA documented in this encounter [facility] 01-10-2023 History of Presen t illness Narrative Scan on 01/09/2023 1:36 PM by External Provider: Miscellaneous Lab Scan on 01/09/2023 1:19 PM by External Provider: Miscellaneous Lab documented in this encounter [facility] 01-07-2023 Miscellaneous Notes Patient has been identified by name and date of : Yes Requested Prescriptions Pending Prescriptions Disp Refills montelukast (SINGULAIR) 10 mg tablet 90 tablet 1 Sig: Take 1 tablet by mouth daily at bedtime. levothyroxine (SYNTHROID) 200 mcg tablet 90 tablet 1 Sig: Take 1 tablet by mouth once daily. RX INSTRUCTIONS: Patient aware RX will be sent to pharmacy. No need to notify patient. Evelina Peter MA Merle: 08/2022 Nov: 02/2023 Last refill; 06/2022 documented in this encounter [facility] 12-25-2022 Miscellaneous Notes The following approved medication requests have been transmitted electronically. Requested Prescriptions Signed Prescriptions Disp Refills pregabalin (LYRICA) 25 mg capsule 60 capsule 2 Sig: Take 1 capsule by mouth twice daily for 30 days. Authorizing Provider: ELDER CHAO PA-C Source : mychart from patient requesting refill. Delivery : e-script Requested Prescriptions Pending Prescriptions Disp Refills pregabalin (LYRICA) 25 mg capsule 60 capsule 2 Sig: Take 1 capsule by mouth twice daily for 30 days. DX : Patient last seen: 12/27/2021 Next Appointment : Scheduling. Jasmin Bellamy documented in this encounter [facility] 12-19-2022 Miscellaneous Notes The following approved medication requests have been transmitted electronically. Requested Prescriptions Signed Prescriptions Disp Refills dimethyl fumarate (TECFIDERA) [address] 180 capsule 0 Sig: Take 1 capsule (240 mg) by mouth twice daily. Authorizing Provider: STEPH CLINE Ordering User: ELDER CHAO PA-C Needs generic now. Source : mychart from patient requesting refill. Delivery : e-script Requested Prescriptions Pending Prescriptions Disp Refills dimethyl fumarate (TECFIDERA) [address] 180 capsule 0 Sig: Take 1 capsule (240 mg) by mouth twice daily. DX : Patient last seen: 12/27/2021 Next Appointment : None Jasmin Bellamy documented in this encounter [facility] 12-15-2022 Miscellaneous Notes The following approved medication requests have been transmitted electronically. Requested Prescriptions Signed Prescriptions Disp Refills meclizine (ANTIVERT) 12.5 mg tab 90 tablet 1 Sig: Take 1 tablet by mouth three times daily as needed (dizziness). Isael Fish MD documented in this encounter [facility] 11-21-2022 Miscellaneous Notes TC to patient who verbalized understanding and has no questions at this time. EFRA Nunez Left message for patient to contact office. Evelina Peter MA Let patient know her uric acid level was normal. Scan on 11/16/2022 10:08 AM by External Provider: Chemistry Please review. Ordering - kleber Peter MA documented in this encounter [facility] 11-16-2022 History of Presen t illness Narrative Scan on 11/16/2022 10:08 AM by External Provider: Chemistry documented in this encounter [facility] 10-15-2022 Miscellaneous Notes Faxed and patient notified. Evelina Peter MA order placed. Please place consult Dr. Walton fax: [phone] documented in this encounter [facility] 09-21-2022 Miscellaneous Notes The following approved medication requests have been transmitted electronically. Requested Prescriptions Signed Prescriptions Disp Refills pregabalin (LYRICA) 25 mg capsule 60 capsule 2 Sig: Take 1 capsule by mouth twice daily for 90 days. Elder Chao PA-C Called patient, verified name and . Patient state she has been having symptoms since the beginning of August. They vary in intensity and are intermittent. She does state she gets winded intermittently, without rhyme or reason. Patient reports she is familiar with MS Hug as well as Costrochondritis and the symptoms are similar, although in a new area across her chest. Patient does state this is the most stressful time of her career, and she has some anxiety stress is at an all time high. Denies palpitations or swelling/bruising to bilateral lower extremities in past month. Spoke with Elder Chao PA-C. She states she still recommends patient be evaluated in ER. She can offer Gabapentin to try for symptoms as well, patient was on this in the past. Called patient, she states she will report to ER after work. She states she took Gabapentin in the past but the side effects she experienced of dizziness and drowsiness were excessive. She states last year she tried Pregabalin for similar rib symptoms and did much better. Local pharmacy is [facility]. Routing to Elder Chao PA-C. Molly Palomino RN Spoke with Elder Chao PA-C, patient will need evaluation in ER to evaluate symptoms. Called patient, no answer. Message left indicating MyChart response will be sent with recommendations. Molly Palomino RN documented in this encounter [facility] 08-28-2022 Miscellaneous Notes The following approved medication requests have been transmitted electronically. Requested Prescriptions Signed Prescriptions Disp Refills losartan (COZAAR) 50 mg tablet 90 tablet 1 Sig: Take 1 tablet by mouth once daily. Isael Fsih MD Please see pt's message. Marina Davila LPN documented in this encounter [facility] 08-15-2022 Instructions Isael Fish MD - 08/15/2022 6:30 PM EST Please send Dr. Kleber alva My Chart message in a week or two with some home blood pressure readings documented in this encounter [facility] 08-15-2022 History of Presen t illness Narrative Chief Complaint Patient presents with: F/U 6 months HPI Romi Rodrigez is a 37 year old female who presents here today for 6 month follow. Patient with Hx of HTN, general anxiety, depression, hypothyroidism, hyperlipidemia, Migraines, systolic CHF, Takotsubo cardiopathy, GERD, MS as well as those reviewed and addressed below. Patient has been doing ok. Has not had any new issues and no new concerns today. Past medical history, appointments, medications, allergies reviewed. Previous Medical History PAST MEDICAL HISTORY Diagnosis Date Cardiomyopathy (HCC) 01/2008 apical balloon syndrome broken heart disease stress reaction to losing her father Chronic systolic heart failure (HCC) Chronic systolic heart failure (HCC) Depression 07/18/2016 Dysmetabolic syndrome 03/14/2016 Essential hypertension 08/16/2017 Family history of pancreatic cancer 06/05/2019 Mother 2019 age 65 Generalized anxiety disorder 03/14/2016 GERD without esophagitis 09/27/2021 History of 2019 novel coronavirus disease (COVID-19) 10/12/2020 10/10/2020 LBBB (left bundle branch block) 03/14/2016 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 Downing-Santos Neuro Muscle spasm 12/16/2019 Related to MS. On Clonopin PCOS (polycystic ovarian syndrome) 03/14/2016 PMH - PAST MEDICAL HISTORY OF radioactive iiodine Postprocedural hypothyroidism 04/23/2003 Seasonal allergies 07/26/2021 Takotsubo cardiomyopathy 03/14/[address] Trevino Previous Surgical History PAST SURGICAL HISTORY Procedure Laterality Date 2D ECHO (EXEP) 06/21/2020 EF=40%, mild syst dysf 2D ECHO (EXEP) 04/12/2021 EF=45%, mild syst dysf, trival ND, TI 2D ECHO (EXEP) 08/08/2021 EF=45%, no significant valve disease ANKLE ARTHROSCOPY/SURGERY Right ECHO LVEF 37% ECHOCARDIOGRAM 05/29/2017 LEXISCAN STRESS TEST 06/21/2020 EF=41% , changes consistent with previous ND, no new reversible ischemic areas. PAST SURGICAL HISTORY OF arthroscopic knee surgery on right PAST SURGICAL HISTORY OF reconstructive to right leg for dog bite PAST SURGICAL HISTORY OF TMJ surgery which helped head pain. PAST SURGICAL HISTORY OF Jaw arthroscopy/surgery PAST SURGICAL HISTORY OF 2013 breast reduction PAST SURGICAL HISTORY OF 01/15/2017 micodiscectomy L4-L5 PAST SURGICAL HISTORY OF Bilateral 12/2018 Lasik surgery Family History FAMILY HISTORY Problem Relation Age of Onset other (diabetes mellitus) Mother other (pancreatic cancer) Mother 65 Coronary Artery Disease Father from [place] age 60 other (Sudden ) Father other (ovarian cyst) Sister oophorectomy COPD Maternal Grandmother other (atrial fibrillation) Maternal Grandmother other (strokes) Maternal Grandmother other (brain tumor) Other Miscarriages / Stillbirths Other other (multiple sclerosis) Other mothers cousin with MS Patient Allergies ALLERGIES Allergen Reactions Michelle [Fexofenadi* Hives Lidocaine Rash, Hives Lisinopril Swelling Angio edema Buspar [Buspirone H* Other: See Comments Lack of efficacy. Codeine Intolerance, GI Upset Morphine Vomiting extreme nausea and vomiting Paxil [Paroxetine H* Other: See Comments Made depression worse Prednisone Other: See Comments heart racing and face was beet red. Prozac [Fluoxetine * Other: See Comments Made depression worse Tape [Adhesive Tape* Unknown Wellbutrin [Bupropi* Other: See Comments Made depression worse Zoloft [Sertraline * Other: See Comments Made depression worse Current Medications Current Outpatient Medications on File Prior to Visit Medication Sig busPIRone (BUSPAR) 15 mg tablet 1 tab three times a day montelukast (SINGULAIR) 10 mg tablet Take 1 tablet by mouth daily at bedtime. QUEtiapine (SEROQUEL) 200 mg tablet Take 1 tablet by mouth daily at bedtime. metFORMIN (GLUCOPHAGE) 500 mg tablet Take 1 tablet by mouth twice daily with meals. spironolactone (ALDACTONE) 100 mg tablet TAKE ONE TABLET ONCE PER DAY AT THE SAME TIME EVERY DAY levothyroxine (SYNTHROID) 200 mcg tablet Take 1 tablet by mouth once daily. omeprazole (PRILOSEC) 40 mg capsule Take 1 capsule by mouth twice daily. clonazePAM (KLONOPIN) 0.5 mg tablet Take 1 tablet by mouth three times daily for 90 days. TECFIDERA [address] Take 1 capsule by mouth twice daily. Drospirenone-Ethinyl Estradiol 3-0.03 mg per tablet Take 1 tablet by mouth once daily. For continuous use. Take active pills only for 4 packs then one week of placebo pills. losartan (COZAAR) 25 mg tablet Take 1 tablet by mouth once daily. baclofen (LIORESAL) 10 mg tablet Take 1 tablet by mouth once daily as needed. carvedilol (COREG) 25 mg tablet Take 1 tablet by mouth twice daily. Per Cardio fluticasone (FLONASE) 50 mcg/actuation nasal spray Use 2 Sprays in each nostril once daily. Rinse mouth after use. Cetirizine 10 mg cap Take by mouth. biotin 5 mg tab Take 5,000 mg by mouth once daily. omega-3 fatty acids 1,000 mg cap Take 1,000 mg by mouth once daily. Cholecalciferol, Vitamin D3, 1,000 unit cap Take 1,000 Units by mouth once daily. pyridoxine hcl(VITAMIN B-6 100 MG TAB) One daily. MULTI-VITAMIN TAB 1 tablet daily CALCIUM 500 MG TAB 1 tablet daily No current facility-administered medications on file prior to visit. Social History Social History Tobacco Use Smoking status: Never Smokeless tobacco: Never Vaping Use Vaping Use: Never used Substance Use Topics Alcohol use: Yes Comment: seldom Drug use: No Review of Symptoms REVIEW OF SYSTEMS GENERAL: No weight loss, malaise or fevers NECK: Negative for lumps, goiter, pain and significant neck swelling RESPIRATORY: Negative for cough, hemoptysis, wheezing, COPD, dyspnea or shortness of breath CARDIOVASCULAR: Negative for chest pain, leg swelling, hypertension, CHF or palpitations GI: No nausea, vomiting, or diarrhea and No heartburn or reflux symptoms PSYCH: Negative for sleep disturbance, mood disorder and recent psychosocial stressors ENDOCRINE: Negative for cold or heat intolerance, polyuria, polydipsia and goiter NEURO: No history of headaches, syncope, paralysis, seizures or tremors EXAM: BP 126/90 (BP Site: Right Arm, BP Position: Sitting, BP Cuff Size: Large Adult) Pulse 82 Resp 16 Wt 119.7 kg (264 lb) LMP 06/04/2022 (Approximate) BMI 37.88 kg/m obesity Last 4 Encounter Wt Readings: Date: Wt: 08/15/2022 119.7 kg (264 lb) 06/20/2022 120.2 kg (265 lb) 02/28/2022 117.9 kg (260 lb) 01/31/2022 120.7 kg (266 lb) General Appearance: Well appearing, alert, in no acute distress, well-hydrated, well nourished. and Obese. Neck: Supple, no adenopathy; thyroid symmetric, normal size, no bruits. Lungs: Lungs clear to auscultation. No wheezing, rhonchi, rales.. Heart: RRR without murmur, gallop, or rubs. No ectopy. Abdomen: Normal abdominal exam, Abdomen soft, non-tender. Bowel sounds normal. No masses, organomegaly. Extremities: No deformities, edema, skin discoloration, Good capillary refill. . Peripheral Pulses: Normal. Neurologic: Gait normal. Sensation to light touch intact.. Health Maintenance List HEPATITIS B(1 of 3 - 3-dose series) Never done COVID-19 VACCINE(4 - Booster for Moderna series) due on 10/20/2021 BP CONTROLLED (<130/80) due on 01/25/2022 INFLUENZA(1) due on 06/07/2022 PNEUMOCOCCAL(2 - PPSV23 if available, else PCV20) due on 07/26/2022 ANNUAL PCP TEAM CHRONIC DISEASE VISIT due on 06/20/2023 PAP TESTING due on 04/20/2024 HPV TESTING due on 04/20/2024 DTAP,TDAP,TD(2 - Td or Tdap) due on 09/03/2028 HEPATITIS C SCREENING Discontinued HIV SCREENING Discontinued Data reviewed Component Latest Ref Rng & Units 08/14/2022 08/14/2022 12:00 AM 12:00 AM NA 136 - 145 mmol/L 137 K 3.5 - 5.1 mmol/L 4.0 Chloride 98 - 107 MEQ/L 101 101 CO2 21 - 32 MEQ/L 27.0 Glucose 74 - 106 MG/DL 86 86 BUN 7 - 18 MG/DL 13 Creatinine 0.6 - 1.3 MG/DL 0.65 0.65 GFR mL/MIN 108 108 Total Protein 6.4 - 8.2 gm/dL 8.3 (A) Albumin 3.2 - 4.6 gm/dL 3.9 Calcium 8.8 - 10.5 MG/DL 9.2 9.2 Bili Total 0.2 - 1 mg/dL 0.3 AST 8 - 37 U/L 18 ALT (SGPT) 12 - 78 U/L 24 Alk Phos Total 45 - 117 U/L 55 Phosphorus 2.5 - 4.9 3.5 Direct Bilirubin 0.0 - 0.3 0.1 Sodium 136 - 145 MEQ/L 137 Potassium 3.5 - 5.1 MEQ/L 4.0 GFR AFR AMER mL/MIN 131 Cholesterol, Total 100 - 199 MG/DL 232 (A) 232 (A) Triglyceride 150 106 HDL CHOLESTEROL 50 96 LDL Cholesterol 130 115 Ldh 84 - 246 164 Uric Acid 2.6 - 6.0 3.7 TSH 0.358 - 3.74 IU/ml 1.06 A/P ASSESSMENT/PLAN: 1. Essential hypertension - ICD9: 401.9, ICD10: I10 (primary diagnosis) - suboptimal control - Continue current medication(s) - Recommended regular aerobic exercise. - Recommend home blood pressure monitoring, to bring results in on next visit - patient to send in a MY chart message in a week with home BP readings - Goal of BP <130/80 2. Mixed hyperlipidemia - ICD9: 272.2, ICD10: E78.2 - good control - Encouraged following a low fat, low cholesterol diet. - Discussed the benefits of regular aerobic exercise and weight loss. - Encouraged following a low carbohydrate, healthy oil intake diet. - Continue current therapy. 3. Postprocedural hypothyroidism - ICD9: 244.0, ICD10: E89.0 - Instructed patient on importance of taking on an empty stomach either first thing in the morning or at bedtime. - continue current dose of Synthroid 4. Migraine with aura and without status migrainosus, not intractable - ICD9: 346.00, ICD10: G43.109 - stable no changes. 5. GERD without esophagitis - ICD9: 530.81, ICD10: K21.9 - Continue treatment with Prilosec 40 mg BID 6. Multiple sclerosis (HCC) - ICD9: 340, ICD10: G35 Cont prn - CLONAZEPAM 0.5 MG TABLET PDMP website checked and validated. All prescriptions have been APPROPRIATELY filled. No suspicious activity was identified. 08/15/2022 by Isael Fish MD 7. Takotsubo cardiomyopathy - ICD9: 429.83, ICD10: I51.81 - management per cardio 8. Chronic systolic heart failure (HCC) - ICD9: 428.22, ICD10: I50.22 - as per #7 9. Generalized anxiety disorder - ICD9: 300.02, ICD10: F41.1 - stable with tx. 10. Obesity, Class II, BMI 35-39.9 - ICD9: 278.00, ICD10: E66.9 Stable - Behavioral intervention - will refer to Why weight at [facility]. 11. Encounter for immunization - ICD9: V03.89, ICD10: Z23 - PNEUMOCOCCAL VACCINE (PREVNAR 20): given Requested Prescriptions Pending Prescriptions Disp Refills omeprazole (PRILOSEC) 40 mg capsule 180 capsule 1 Sig: Take 1 capsule by mouth twice daily. clonazePAM (KLONOPIN) 0.5 mg tablet 270 tablet 0 Sig: Take 1 tablet by mouth three times daily for 90 days. F/u 6 months complete PE will need CMP, lipid, UA, A1c, TSH, CBC, B12, Mg Isael Fish MD documented in this encounter [facility] 08-15-2022 Miscellaneous Notes Patient has been identified by name and date of : Yes Requested Prescriptions Pending Prescriptions Disp Refills gemfibrozil (LOPID) 600 mg tablet 180 tablet 1 Sig: Take 1 tablet by mouth twice daily. RX INSTRUCTIONS: Patient aware RX will be sent to pharmacy. No need to notify patient. Evelina Peter MA Merle: 06/2022 Nov: 08/15/2022 Last refill; 06/2022 Patient has been identified by name and date of : Yes Last office visit in this department: 06/20/2022 RX INSTRUCTIONS: Patient aware RX will be sent to pharmacy. No need to notify patient. Patient phones requesting refills as follows: Requested Prescriptions Pending Prescriptions Disp Refills gemfibrozil (LOPID) 600 mg tablet 180 tablet 1 Sig: Take 1 tablet by mouth twice daily. Please review and advise. Soniya Cohn documented in this encounter [facility] 08-07-2022 Miscellaneous Notes Lab order faxed to [facility] lab Printed of TSH order that needs faxed to [facility]. This is the only lab needed. documented in this encounter [facility] 07-31-2022 History of Presen t illness Narrative Received completed FMLA Form and mailed back to patient as directed. Copy to be scanned to chart. Type of form: FMLA Form received via mail When form is completed, Mail form to BACK TO PATIENT Form has been forwarded to Nurse Practictioner: Elder Chao mailbox Jasmin Bellamy documented in this encounter [facility] 07-24-2022 Miscellaneous Notes Prilosec was refilled #60 with 2 refills on 06/20/[address] [facility] pharmacy. Pt notified via [facility] to check with pharmacy for refills. Viviana Hill Ma documented in this encounter [facility] 06-25-2022 Miscellaneous Notes Pt notified of same. Marina Davila LPN Let patient know her CBC, liver functions and pancreatic functions were all normal. documented in this encounter [facility] 06-20-2022 History of Presen t illness Narrative Chief Complaint Patient presents with: Pain, Abdominal: RUQ HPI Romi Rodrigez is a 36 year old female who presents here today for RUQ. Patient has been having pain in the RUQ for the past two months. She tried taking the omeprazole OTC again twice a day with some improvement but is still getting GERD like symptoms if eating too much or too late. Has an occasional acid taste up into her throat. Patient did start swimming again 3-4 months ago. Pain has been made worse after eating and cant say if any particular foods brings it on.. Some times pain will radiate to her back. Has been taking tums with benefit sometimes. Has had nausea but no vomiting. No diarrhea. Past medical history, appointments, medications, allergies reviewed. 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 Downing-Santos Neuro Muscle spasm 12/16/2019 Related to MS. On Clonopin PCOS (polycystic ovarian syndrome) 03/14/2016 PMH - PAST MEDICAL HISTORY OF radioactive iiodine Postprocedural hypothyroidism 04/23/2003 Seasonal allergies 07/26/2021 Takotsubo cardiomyopathy 03/14/[address] Trevino Previous Surgical History PAST SURGICAL HISTORY Procedure Laterality Date 2D ECHO (EXEP) 06/21/2020 EF=40%, mild syst dysf 2D ECHO (EXEP) 04/12/2021 EF=45%, mild syst dysf, trival ND, TI 2D ECHO (EXEP) 08/08/2021 EF=45%, no significant valve disease ANKLE ARTHROSCOPY/SURGERY Right ECHO LVEF 37% ECHOCARDIOGRAM 05/29/2017 LEXISCAN STRESS TEST 06/21/2020 EF=41% , changes consistent with previous ND, no new reversible ischemic areas. PAST SURGICAL HISTORY OF arthroscopic knee surgery on right PAST SURGICAL HISTORY OF reconstructive to right leg for dog bite PAST SURGICAL HISTORY OF TMJ surgery which helped head pain. PAST SURGICAL HISTORY OF Jaw arthroscopy/surgery PAST SURGICAL HISTORY OF 2013 breast reduction PAST SURGICAL HISTORY OF 01/15/2017 micodiscectomy L4-L5 PAST SURGICAL HISTORY OF Bilateral 12/2018 Lasik surgery Family History FAMILY HISTORY Problem Relation Age of Onset other (diabetes mellitus) Mother other (pancreatic cancer) Mother 65 Coronary Artery Disease Father from [place] age 60 other (Sudden ) Father other (ovarian cyst) Sister oophorectomy COPD Maternal Grandmother other (atrial fibrillation) Maternal Grandmother other (strokes) Maternal Grandmother other (brain tumor) Other Miscarriages / Stillbirths Other other (multiple sclerosis) Other mothers cousin with MS Patient Allergies ALLERGIES Allergen Reactions Michelle [Fexofenadi* Hives Lidocaine Rash, Hives Lisinopril Swelling Angio edema Buspar [Buspirone H* Other: See Comments Lack of efficacy. Codeine Intolerance, GI Upset Morphine Vomiting extreme nausea and vomiting Paxil [Paroxetine H* Other: See Comments Made depression worse Prednisone Other: See Comments heart racing and face was beet red. Prozac [Fluoxetine * Other: See Comments Made depression worse Tape [Adhesive Tape* Unknown Wellbutrin [Bupropi* Other: See Comments Made depression worse Zoloft [Sertraline * Other: See Comments Made depression worse Current Medications Current Outpatient Medications on File Prior to Visit Medication Sig clonazePAM (KLONOPIN) 0.5 mg tablet Take 1 tablet by mouth three times daily for 90 days. TECFIDERA [address] Take 1 capsule by mouth twice daily. Drospirenone-Ethinyl Estradiol 3-0.03 mg per tablet Take 1 tablet by mouth once daily. For continuous use. Take active pills only for 4 packs then one week of placebo pills. busPIRone (BUSPAR) 15 mg tablet 1 tab three times a day gemfibrozil (LOPID) 600 mg tablet Take 1 tablet by mouth twice daily. montelukast (SINGULAIR) 10 mg tablet Take 1 tablet by mouth daily at bedtime. QUEtiapine (SEROQUEL) 200 mg tablet Take 1 tablet by mouth daily at bedtime. metFORMIN (GLUCOPHAGE) 500 mg tablet Take 1 tablet by mouth twice daily with meals. spironolactone (ALDACTONE) 100 mg tablet TAKE ONE TABLET ONCE PER DAY AT THE SAME TIME EVERY DAY losartan (COZAAR) 25 mg tablet Take 1 tablet by mouth once daily. levothyroxine (SYNTHROID) 200 mcg tablet Take 1 tablet by mouth once daily. baclofen (LIORESAL) 10 mg tablet Take 1 tablet by mouth once daily as needed. carvedilol (COREG) 25 mg tablet Take 1 tablet by mouth twice daily. Per Cardio fluticasone (FLONASE) 50 mcg/actuation nasal spray Use 2 Sprays in each nostril once daily. Rinse mouth after use. Cetirizine (ZYRTEC) 10 mg cap Take by mouth. biotin 5 mg tab Take 5,000 mg by mouth once daily. omega-3 fatty acids 1,000 mg cap Take 1,000 mg by mouth once daily. Cholecalciferol, Vitamin D3, 1,000 unit cap Take 1,000 Units by mouth once daily. pyridoxine hcl(VITAMIN B-6 100 MG TAB) One daily. MULTI-VITAMIN TAB 1 tablet daily CALCIUM 500 MG TAB 1 tablet daily No current facility-administered medications on file prior to visit. Social History Social History Tobacco Use Smoking status: Never Smokeless tobacco: Never Vaping Use Vaping Use: Never used Substance Use Topics Alcohol use: Yes Comment: seldom Drug use: No Review of Symptoms REVIEW OF SYSTEMS See HPI EXAM: BP 126/86 (BP Site: Right Arm, BP Position: Sitting, BP Cuff Size: Large Adult) Pulse 88 Temp 37.3 C (99.2 F) Resp 16 Wt 120.2 kg (265 lb) LMP 06/04/2022 (Approximate) BMI 38.02 kg/m General Appearance: Well appearing, alert, in no acute distress, well-hydrated, well nourished.. Back:no flank pain. Abdomen: Normal abdominal exam, Abdomen soft, non-tender. Bowel sounds normal. No masses, organomegaly. Health Maintenance List HEPATITIS B(1 of 3 - 3-dose series) Never done BP CONTROLLED (<130/80) due on 01/25/2022 INFLUENZA(1) due on 06/07/2022 PNEUMOCOCCAL(2 - PPSV23 or PCV20) due on 07/26/2022 ANNUAL PCP TEAM CHRONIC DISEASE VISIT due on 01/31/2023 PAP TESTING due on 04/20/2024 HPV TESTING due on 04/20/2024 DTAP,TDAP,TD(2 - Td or Tdap) due on 09/03/2028 COVID-19 VACCINE Completed HEPATITIS C SCREENING Discontinued HIV SCREENING Discontinued Data reviewed A/P ASSESSMENT/PLAN: 1. Epigastric pain - ICD9: 789.06, ICD10: R10.13 (primary diagnosis) - Increase treatment with Prilosec 40 mg BID Check - HEPATIC FUNCTION PNL - AMYLASE BLD - LIPASE BLD - CBC + DIFF - check Upper GI. 2. RUQ pain - ICD9: 789.01, ICD10: R10.11 Check - HEPATIC FUNCTION PNL - CBC + DIFF - check US and if negative will get a HIDA scan. Requested Prescriptions Pending Prescriptions Disp Refills omeprazole (PRILOSEC) 40 mg capsule 60 capsule 2 Sig: Take 1 capsule by mouth twice daily. Signed Prescriptions Disp Refills busPIRone (BUSPAR) 15 mg tablet 270 tablet 1 Si tab three times a day gemfibrozil (LOPID) 600 mg tablet 180 tablet 1 Sig: Take 1 tablet by mouth twice daily. montelukast (SINGULAIR) 10 mg tablet 90 tablet 1 Sig: Take 1 tablet by mouth daily at bedtime. QUEtiapine (SEROQUEL) 200 mg tablet 90 tablet 1 Sig: Take 1 tablet by mouth daily at bedtime. metFORMIN (GLUCOPHAGE) 500 mg tablet 180 tablet 1 Sig: Take 1 tablet by mouth twice daily with meals. spironolactone (ALDACTONE) 100 mg tablet 90 tablet 1 Sig: TAKE ONE TABLET ONCE PER DAY AT THE SAME TIME EVERY DAY levothyroxine (SYNTHROID) 200 mcg tablet 90 tablet 1 Sig: Take 1 tablet by mouth once daily. Patient has appt for routine 08/15/2022 Isael Fish MD documented in this encounter [facility] 06-18-2022 Miscellaneous Notes Patient notified and scheduled. Evelina Peter MA Please contact patient and advise her I would like her to see me or Bing to eval the RUQ pain. This could be gal bladder. We can then print off any labs orders she needs and reschedule her appt for Oct at that time. documented in this encounter [facility] 05-02-2022 Miscellaneous Notes Patient has been identified by name and date of : Yes Pending Prescriptions Disp Refills CLONAZEPAM 0.5 MG TABLET 270 tablet 0 Sig: Take 1 tablet by mouth three times daily for 90 days. SONNY Class: C-IV NETTA: No RX INSTRUCTIONS: Patient aware RX will be sent to pharmacy. No need to notify patient. Evelina Peter MA Merle: 01/2022 Nov: 07/2022 Last refill: 01/15/2022 Patient has been identified by name and date of : Yes Pending Prescriptions Disp Refills CLONAZEPAM 0.5 MG TABLET 270 tablet 0 Sig: Take 1 tablet by mouth three times daily for 90 days. SONNY Class: C-IV NETTA: No RX INSTRUCTIONS: Pharmacy initiated this request. No need to notify patient. Rich Castellanos Pss documented in this encounter [facility] 04-19-2022 Miscellaneous Notes The following approved medication requests have been transmitted electronically. Signed Prescriptions Disp Refills TECFIDERA [address] 60 capsule 5 Sig: Take 1 capsule by mouth twice daily. NETTA: Yes Authorizing Provider: STEPH CLINE Ordering User: ELDER CHAO PA-C Source : electronic from pharmacy requesting refill. Delivery : e-script Pending Prescriptions Disp Refills TECFIDERA 240 MG CAPSULE,DELAYED RELEASE 60 capsule 5 Sig: Take 1 capsule by mouth twice daily. NETTA: Yes DX : Patient last seen: 12/27/2021 Next Appointment : None Jasmin Bellamy documented in this encounter [facility] 04-13-2022 Miscellaneous Notes Upon review of the chart. The medication requested for Coreg is prescribed by cardio. Evelina Peter MA documented in this encounter [facility] 02-28-2022 History of Presen t illness Narrative Romi is a 36 year old who presents for an annual gynecologic exam without complaints. Has lost 23 lbs on weight watchers. Sister moved into in-law suite. Working through grief from passing of her mother 1.5 years ago. Menses: cycles every 28 days and 3 days of flow. Contraception: oral contraceptives HPV vaccine: No Last Pap: 2019 normal HPV: neg History of abnormal pap: Yes, 2018 ASCUS, HPV positive Last mammogram: many years ago, breast lump left breast, fibroid, fibroadenoma of right breast 2012 Sexually active: Yes History of STDS: HPV Patient concerns for STD exposure: No. Time with current partner: 10 years Pain with intercourse: No Postcoital bleeding: No Documentation from previous visit of 05/12/2020 was copied and pasted, documentation has been reviewed and edited as necessary for today's visit. 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 History Comments: Sexual Activity: Yes; Male Contraception: Pill PAST MEDICAL HISTORY Diagnosis Date Cardiomyopathy (HCC) 01/2008 apical balloon syndrome broken heart disease stress reaction to losing her father Chronic systolic heart failure (HCC) Chronic systolic heart failure (HCC) Depression 07/18/2016 Dysmetabolic syndrome 03/14/2016 Essential hypertension 08/16/2017 Family history of pancreatic cancer 06/05/2019 Mother 2019 age 65 Generalized anxiety disorder 03/14/2016 GERD without esophagitis 09/27/2021 History of 2019 novel coronavirus disease (COVID-19) 10/12/2020 10/10/2020 LBBB (left bundle branch block) 03/14/2016 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 Downing-Santos Neuro Muscle spasm 12/16/2019 Related to MS. On Clonopin PCOS (polycystic ovarian syndrome) 03/14/2016 PMH - PAST MEDICAL HISTORY OF radioactive iiodine Postprocedural hypothyroidism 04/23/2003 Seasonal allergies 07/26/2021 Takotsubo cardiomyopathy 03/14/[address] Trevino PAST SURGICAL HISTORY Procedure Laterality Date 2D ECHO (EXEP) 06/21/2020 EF=40%, mild syst dysf 2D ECHO (EXEP) 04/12/2021 EF=45%, mild syst dysf, trival ND, TI 2D ECHO (EXEP) 08/08/2021 EF=45%, no significant valve disease ANKLE ARTHROSCOPY/SURGERY Right ECHO LVEF 37% ECHOCARDIOGRAM 05/29/2017 LEXISCAN STRESS TEST 06/21/2020 EF=41% , changes consistent with previous ND, no new reversible ischemic areas. PAST SURGICAL HISTORY OF arthroscopic knee surgery on right PAST SURGICAL HISTORY OF reconstructive to right leg for dog bite PAST SURGICAL HISTORY OF TMJ surgery which helped head pain. PAST SURGICAL HISTORY OF Jaw arthroscopy/surgery PAST SURGICAL HISTORY OF 2013 breast reduction PAST SURGICAL HISTORY OF 01/15/2017 micodiscectomy L4-L5 PAST SURGICAL HISTORY OF Bilateral 12/2018 Lasik surgery FAMILY HISTORY Problem Relation Age of Onset other (diabetes mellitus) Mother other (pancreatic cancer) Mother 65 Coronary Artery Disease Father from [place] age 60 other (Sudden ) Father COPD Maternal Grandmother other (atrial fibrillation) Maternal Grandmother other (strokes) Maternal Grandmother other (brain tumor) Other Miscarriages / Stillbirths Other other (multiple sclerosis) Other mothers cousin with MS SOCIAL HISTORY Social History Tobacco Use Smoking status: Never Smoker Smokeless tobacco: Never Used Vaping Use Vaping Use: Never used Substance Use Topics Alcohol use: Yes Comment: seldom Drug use: No REVIEW OF SYSTEMS Abdomen: No abdominal pain, nausea, vomiting, diarrhea, or constipation. No bloating, early satiety, indigestion, or increased flatulence. Bladder: No dysuria, gross hematuria, urinary frequency, urinary urgency, or incontinence. Breast: No breast lumps, nipple d/c, overlying skin changes, redness or skin retraction. Allergies and current medication updated:Yes EXAM: BP 130/76 Ht 5' 10 (1.78m) Wt 260 lb (117.9kg) LMP 02/18/2022 BMI 37.31 kg/(m^2). GENERAL: pleasant, female in no apparent distress HEENT: Normocephalic, atraumatic, mucus membranes moist and no lesions NECK: Supple, full range of motion, no adenopathy and thyroid normal DERMATOLOGY: Normal, without lesions, non-icteric and non-hirsute BREAST: soft, non-tender, symmetric, no dominant mass, normal nipple-areolar complex, no lymphadenopathy and no nipple discharge CHEST: Normal inspiratory effort ABDOMEN: soft, non-tender and no masses PELVIC: external genitalia normal, normal Bartholin's glands, urethra, [place]'s glands, no vulvar lesions, no cervical lesions, good vaginal support, physiologic discharge present, normal appearing perineal body and perianal region BIMANUAL: uterus normal size, shape and consistency, no adnexal masses and non-tender RECTOVAGINAL: deferred. NEURO: alert and oriented x3,exam grossly non-focal EXTREMITIES: normal ASSESSMENT/PLAN: 1) Health maintenance: Pap/HPV up to date. Mammogram starting age 40. Nutrition, exercise and routine health maintenance exams reviewed. 2. Obesity (BMI 35.0-39.9 without comorbidity) - ICD9: 278.00, ICD10: E66.9 - Has lost 23 pounds in past 2 months on Weight Watchers 3) Contraception: combined hormonal contraceptives. Contraceptive options reviewed and information provided. 4) STD screening: Declined STD check. 5) Follow up one year or sooner as needed Kady Sol APRN.ALANNHA documented in this encounter [facility] 01-15-2022 Miscellaneous Notes The following approved medication requests have been transmitted electronically. Signed Prescriptions Disp Refills gemfibrozil (LOPID) 600 mg tablet 180 tablet 1 Sig: Take 1 tablet by mouth twice daily. NETTA: No Authorizing Provider: ISAEL FISH clonazePAM (KLONOPIN) 0.5 mg tablet 270 tablet 0 Sig: Take 1 tablet by mouth three times daily for 90 days. SONNY Class: C-IV NETTA: No Authorizing Provider: ISAEL FISH montelukast (SINGULAIR) 10 mg tablet 90 tablet 1 Sig: Take 1 tablet by mouth daily at bedtime. NETTA: No Authorizing Provider: ISAEL FISH QUEtiapine (SEROQUEL) 200 mg tablet 90 tablet 1 Sig: Take 1 tablet by mouth daily at bedtime. NETTA: No Authorizing Provider: ISAEL FISH metFORMIN (GLUCOPHAGE) 500 mg tablet 180 tablet 1 Sig: Take 1 tablet by mouth twice daily with meals. NETTA: No Authorizing Provider: ISAEL FISH spironolactone (ALDACTONE) 100 mg tablet 90 tablet 1 Sig: TAKE ONE TABLET ONCE PER DAY AT THE SAME TIME EVERY DAY NETTA: No Authorizing Provider: ISAEL FISH MD PDMP website checked and validated. All prescriptions have been APPROPRIATELY filled. No suspicious activity was identified. 01/15/2022 by Isael Fish MD Patient has been identified by name and date of : Yes Pharmacy phones for refill(s): Pending Prescriptions Disp Refills GEMFIBROZIL 600 MG TABLET 180 tablet 1 Sig: Take 1 tablet by mouth twice daily. NETTA: No CLONAZEPAM 0.5 MG TABLET 270 tablet 0 Sig: Take 1 tablet by mouth three times daily for 90 days. SONNY Class: C-IV NETTA: No MONTELUKAST 10 MG TABLET 90 tablet 1 Sig: Take 1 tablet by mouth daily at bedtime. NETTA: No QUETIAPINE 200 MG TABLET 90 tablet 1 Sig: Take 1 tablet by mouth daily at bedtime. NETTA: No METFORMIN 500 MG TABLET 180 tablet 1 Sig: Take 1 tablet by mouth twice daily with meals. NETTA: No SPIRONOLACTONE 100 MG TABLET 90 tablet 1 Sig: TAKE ONE TABLET ONCE PER DAY AT THE SAME TIME EVERY DAY NETTA: No Date of last office visit with pcp: 12/07/2021 Future appt: 01/31/2022 Last 2 Encounter Wt Readings: Date: Wt: 12/27/2021 121.6 kg (268 lb) 12/07/2021 126.1 kg (278 lb) Previous labs/tests for medication: Cholesterol: Triglycerides (mg/dL) Date Value 07/21/2021 104 HDL Cholesterol (mg/dL) Date Value 08/29/2018 65 LDL Cholesterol (mg/dL) Date Value 08/29/2018 102 ALT (no units) Date Value 07/21/2021 30 Non HDL Cholesterol (mg/dL) Date Value 08/29/2018 123 Blood Pressure: BUN Date Value 01/13/2021 16 MG/DL 08/29/2018 12 mg/dL Sodium Date Value 07/21/2021 139 MEQ/L 08/29/2018 137 mmol/L Last 1 Encounter BP Readings: Date: BP: 12/27/2021 130/81 Liver Function: ALT (no units) Date Value 07/21/2021 30 AST (no units) Date Value 07/21/2021 20 Please advise. Thank you. Rosie Tamez RN documented in this encounter [facility] 01-15-2022 Miscellaneous Notes Patient has been identified by name and date of : Yes Pharmacy phones for refill(s): Pending Prescriptions Disp Refills DROSPIRENONE 3 MG-ETHINYL ESTRADIOL 0.03 MG TABLET 84 tablet 0 Sig: Take 1 tablet by mouth once daily. For continuous use. Take active pills only for 4 packs then one week of placebo pills. NETTA: No Date of last office visit with pcp: 05/12/2020 Future appt: none Last 2 Encounter Wt Readings: Date: Wt: 12/27/2021 121.6 kg (268 lb) 12/07/2021 126.1 kg (278 lb) Previous labs/tests for medication: Blood Pressure: BUN Date Value 01/13/2021 16 MG/DL 08/29/2018 12 mg/dL Sodium Date Value 07/21/2021 139 MEQ/L 08/29/2018 137 mmol/L Last 1 Encounter BP Readings: Date: BP: 12/27/2021 130/81 Liver Function: ALT (no units) Date Value 07/21/2021 30 AST (no units) Date Value 07/21/2021 20 Please advise. Thank you. Rosie Tamez RN documented in this encounter [facility] 12-27-2021 History of Presen t illness Narrative Images from the original note were not included. [facility] FOLLOWUP/ESTABLISHED PATIENT VISIT PRINCIPAL NEUROLOGIC DIAGNOSIS: Multiple Sclerosis [facility] FOLLOWUP VISIT MS DISEASE HISTORY: Date of onset: apr-2009 Date of diagnosis: April-2009 Disease course from Onset; RIS with active MRI in past. h/o chronic migraines and 2 fatty masses were found on her brain, was having annual MRI monitoring and one of the MRIs showed lesions. Current MS Disease Therapy: Tecfidera (started August 2017) Previous MS Disease Therapies: - Avonex since 2008 - 07/2014-due to MRI progression - copaxone 40 mg caused exhaustion after each Saturday injection fatigue had to call off work. Has never had IV steroids, had oral prednisone and it was discontinued due to side effects heart was racing, I was beet red. - copaxone 20 mg started 09/14/2014 (breakthrough disease) - dimethyl fumarate 09/2020- 05/2021 (stopped due to GI intolerance) Last MRI brain, cervical and thoracic : 11/24/20 CHIEF COMPLAINT: Follow-up on MS disease modifying therapy - Virtual Visit INTERVAL HISTORY: Usual treating team: Isabella/Heath --> Mauro/Heath The patient is accompanied by 2 sisters. The patient was last seen 12/07/20, currently taking Tecfidera (brand). Tolerate better. Since the patient's last visit the patient reports overall feeling stable. New job beginning of the year - promoted working in [employer] last year Has taken a total of 3 baclofen doses. No difference in symptoms Working with chiropractor for rib adhesions. Has helped Still gets a lot of stiffness/spasms. Variable locations Fatigue severe Sinusitis earlier this month. Difficult to result. Was on Abx for about 1 month. Needs medrol dose eddie as well. Did not tolerate well. Completed covid vaccines and booster pneumonia vaccine with PCP Taking vitamin D supplements (5,000-10,000 international unit(s) Daily) SUBJECTIVE & REVIEW OF SYSTEMS: Neuro-QoL Functions (higher=better functioning) [facility] from 12/29/2019 in [facility] Office Visit from 04/25/2018 in [facility] Office Visit from 08/14/2017 in [facility] Upper Extremity Domain T Score 50 56.84 50.03 Lower Extremity Domain T Score 57 62.28 62.28 Cognitive Function Domain T Score 37 46.85 46.85 Positive Affect Well Being T Score 63.61 57.39 Ability To Participate In Social Roles T Score 42 47.04 54.53 Satisfaction With Social Roles T Score 41 50.14 49.2 Neuro-QoL Symptoms (higher=worse symptoms) [facility] from 12/29/2019 in [facility] Office Visit from 04/25/2018 in [facility] Office Visit from 08/14/2017 in [facility] Sleep Domain T Score 60 55.63 54.3 Fatigue Domain T Score 64 64.84 52.3 Anxiety Domain T Score 72 64.58 65.23 Depression Domain T Score 55 50.36 47.97 Stigma Domain T Score 51 50.07 48.56 Emotional Behavior Dyscontrol T Score 50.82 47.39 *NeuroQoL is a multi-domain patient-reported quality of life questionnaire. PHQ-9 [facility] from 09/27/2021 in [facility] from 07/06/2020 in [facility] PHQ-9 Score 5 8 *PHQ-9 is a questionnaire for depressive symptoms, with scores 0-4 indicating none, 5-9 mild, 10-14 moderate, 15-19 moderately severe, and 20-27 severe symptoms. PROMIS-10 Office Visit from 12/07/2021 in [facility] from 09/27/2021 in [facility] Global Physical Health T Score 42.3 47.7 Global Mental Health T Score 50.8 56 0-10 Standard Pain Scale 3 3 *PROMIS-10 is a patient-reported quality of life measure, typically reported as physical and mental domains. Here scores are expressed as percentiles, where the lowest possible score is one, the highest possible score is 99, and 50 is average. Refer to patient-entered data. Mood: PHQ9 responses reviewed and appear below Bladder: no change Bowel: No change Pain related to today's visit:reviewed on nursing intake documentation Vision: stable. 2019 lasik (20/40). Just had eye exam PAST HISTORY was reviewed and updated: PAST MEDICAL HISTORY Diagnosis Date Cardiomyopathy (HCC) 01/2008 apical balloon syndrome broken heart disease stress reaction to losing her father Chronic systolic heart failure (HCC) Chronic systolic heart failure (HCC) Depression 07/18/2016 Dysmetabolic syndrome 03/14/2016 Essential hypertension 08/16/2017 Family history of pancreatic cancer 06/05/2019 Mother 2019 age 65 Generalized anxiety disorder 03/14/2016 GERD without esophagitis 09/27/2021 History of 2019 novel coronavirus disease (COVID-19) 10/12/2020 10/10/2020 LBBB (left bundle branch block) 03/14/2016 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 Downing-Santos Neuro Muscle spasm 12/16/2019 Related to MS. On Clonopin PCOS (polycystic ovarian syndrome) 03/14/2016 PMH - PAST MEDICAL HISTORY OF radioactive iiodine Postprocedural hypothyroidism 04/23/2003 Seasonal allergies 07/26/2021 Takotsubo cardiomyopathy 03/14/[address] Trevino PAST SURGICAL HISTORY Procedure Laterality Date 2D ECHO (EXEP) 06/21/2020 EF=40%, mild syst dysf 2D ECHO (EXEP) 04/12/2021 EF=45%, mild syst dysf, trival ND, TI 2D ECHO (EXEP) 08/08/2021 EF=45%, no significant valve disease ANKLE ARTHROSCOPY/SURGERY Right ECHO LVEF 37% ECHOCARDIOGRAM 05/29/2017 LEXISCAN STRESS TEST 06/21/2020 EF=41% , changes consistent with previous ND, no new reversible ischemic areas. PAST SURGICAL HISTORY OF arthroscopic knee surgery on right PAST SURGICAL HISTORY OF reconstructive to right leg for dog bite PAST SURGICAL HISTORY OF TMJ surgery which helped head pain. PAST SURGICAL HISTORY OF Jaw arthroscopy/surgery PAST SURGICAL HISTORY OF 2013 breast reduction PAST SURGICAL HISTORY OF 01/15/2017 micodiscectomy L4-L5 PAST SURGICAL HISTORY OF Bilateral 12/2018 Lasik surgery MEDICATIONS and ALLERGIES were reviewed and updated. SOCIAL HISTORY was reviewed and updated: Social History Tobacco Use Smoking status: Never Smoker Smokeless tobacco: Never Used Living situation: Living at home without assistance Employment Status / Disability: Full-time OBJECTIVE: VITALS & WELLNESS: BP 130/81 Pulse 77 Ht 175.3 cm (5' 9) Wt 121.6 kg (268 lb) LMP 05/09/2020 BMI 39.58 kg/m MSPT Performance Tests 04/25/2018 08/14/2017 Processing Speed Total Number Correct 61 67 Low-contrast letter acuity test-2.5 percent opacity 46 41 Low-contrast letter acuity test-100 percent opacity 60 59 Dominant hand - Right hand MDT Left Hand Time 21.65 21.9 MDT Right Hand Time 19.76 20.4 Walking Speed Test (25 feet) 4.97 5.6 EXAM: General Appearance: well appearing, in no acute distress Mental status evaluation during the interview and examination showed normal level of consciousness, orientation, language, memory, praxis, and higher intellectual function Affect: Normal Extraocular movements: full, without GAYE Facial movements: Intact bilaterally Speech: normal Muscle strength (#/5): Right Left Upper Extremity: Deltoids 5 5 Biceps 5 5 Triceps 5 5 Tourist Information Officer 5 5 Lower extremity: Iliopsoas 5 5 Quadriceps 5 5 Hamstrings 5 5 Tibialis anterior 5 5 Gastrocnemius 5 5 Coordination: Upper extremity dexterity and rapid movements: Normal bilaterally Finger-nose: no dysmetria; coordination intact Standing balance: Normal Standard gait: normal. Assistive device: independent RESULTS: Monitoring labs: CBC + Diff Component Value Date WBC 5.85 12/07/2021 HB 13.1 12/07/2021 HCT 39.7 12/07/2021 PLT 285 12/07/2021 ABSLYMPH 1.37 12/07/2021 CMP Component Value Date AST 20 07/21/2021 GLUC 90 07/21/2021 BUN 16 01/13/2021 CREAT 0.64 07/21/2021 NA 139 07/21/2021 K 3.7 07/21/2021 CHLOR 106 07/21/2021 ALT 30 07/21/2021 No results found for: JCVAB, JCVIND Discrete MRI Results Component Value Date Brain New T2 Lesions None 04/16/2018 Brain Enhancing Lesions None 04/16/2018 ASSESSMENT/PLAN: Romi Rodrigez is a 36 year old female with Multiple Sclerosis. Patient is on Tecfidera (brand) for DMT. Did not tolerate generic dimethyl fumarate due to GI intolerance. Labs reviewed and WNL. Continue to monitor q6 months. Recommend updated brain MRI WWO contrast. MRI of the brain and/or spinal cord is being ordered to evaluate for efficacy of multiple sclerosis (MS) disease modifying therapy. Disease activity in MS is often not immediately detectable on history or examination, but is sensitively identified on MRI. If identified, new or active MS lesions on MRI may represent suboptimal response to MS therapy, and would change medical management. Denies new MS symptoms. Spasticity continues to be bothersome. Has tried a couple doses of baclofen without much relief and OTC approaches. Does find Klonopin (Rx through Dr. Fish for anxiety) is helpful. Consider spasticity group eval. Discussed current COVID-19 vaccine recommendations and data with MS. Discussed vitamin D supplementation recommendations. Exam is:Stable, continue with current IMDT. The prescribed disease modifying therapy for MS is having the expected benefit in this patient based on imaging and clinical criteria, and will be continued or refilled, with planned follow-up at approximately 6-month intervals to continue to assess response on an ongoing basis. 1. Continue Tecfidera (brand) 2. Labs q6 months 3. Brain MRI WWO contrast 4. PCP as directed 5. Consider spasticity team eval Patient Health Education Discussed at Visit: Aerobic exercise, Emotional Health/Wellness, Risks and Common side effects of MS medications, Stretching and Vitamin D supplementation Follow-up: In 6 months at [place] or Virtual Visit with [facility] APC I spent a total of 30 minutes on the date of the service which included preparing to see the patient, [id number] patient care, completing clinical documentation, obtaining and/or reviewing separately obtained history, performing a medically appropriate examination, counseling and educating the patient/family/caregiver, ordering medications, tests, or procedures and communicating results to the patient/family/caregiver. Elder Chao PA-C documented in this encounter [facility] 06-04-2018 History of Past i llness Narrative Problem Noted Date Resolved Date Chest pain 06/04/2018 documented as of this encounter (statuses as of 12/27/2021) [address]29-2018 History of Past illness Narrative* Problem Noted Date Resolved Date Chest pain 06/04/2018 documented as of this encounter (statuses as of 01/15/2022) [address]-2018 History of Past illness Narrative* Problem Noted Date Resolved Date Chest pain 06/04/2018 documented as of this encounter (statuses as of 01/16/2022) [address]-2018 History of Past illness Narrative* Problem Noted Date Resolved Date Chest pain 06/04/2018 documented as of this encounter (statuses as of 02/28/2022) [address]-2018 History of Past illness Narrative* Problem Noted Date Resolved Date Chest pain 06/04/2018 documented as of this encounter (statuses as of 04/13/2022) [address] [address] History of Past illness Narrative* Problem Noted Date Resolved Date Chest pain 06/04/2018 documented as of this encounter (statuses as of 04/19/2022) [address]2018 History of Past illness Narrative* Problem Noted Date Resolved Date Chest pain 06/04/2018 documented as of this encounter (statuses as of 05/03/2022) [address]2018 History of Past illness Narrative* Problem Noted Date Resolved Date Chest pain 06/04/2018 documented as of this encounter (statuses as of 05/24/2022) [address]2018 History of Past illness Narrative* Problem Noted Date Resolved Date Chest pain 06/04/2018 documented as of this encounter (statuses as of 06/18/2022) [address]2018 History of Past illness Narrative* Problem Noted Date Resolved Date Chest pain 06/04/2018 documented as of this encounter (statuses as of 06/22/2022) [address]2018 History of Past illness Narrative* Problem Noted Date Resolved Date Chest pain 06/04/2018 documented as of this encounter (statuses as of 06/25/2022) [address]2018 History of Past illness Narrative* Problem Noted Date Resolved Date Chest pain 06/04/2018 documented as of this encounter (statuses as of 07/24/2022) [address]2018 History of Past illness Narrative* Problem Noted Date Resolved Date Chest pain 06/04/2018 documented as of this encounter (statuses as of 07/31/2022) [place] [address] History of Past illness Narrative* Problem Noted Date Resolved Date Chest pain 06/04/2018 documented as of this encounter (statuses as of 08/07/2022) [place] [address] History of Past illness Narrative* Problem Noted Date Resolved Date Chest pain 06/04/2018 documented as of this encounter (statuses as of 08/15/2022) [address] History of Past illness Narrative* Problem Noted Date Resolved Date Chest pain 06/04/2018 documented as of this encounter (statuses as of 08/17/2022) [address] History of Past illness Narrative* Problem Noted Date Resolved Date Chest pain 06/04/2018 documented as of this encounter (statuses as of 08/28/2022) [address] History of Past illness Narrative* Problem Noted Date Resolved Date Chest pain 06/04/2018 documented as of this encounter (statuses as of 09/21/2022) [address] History of Past illness Narrative* Problem Noted Date Resolved Date Chest pain 06/04/2018 documented as of this encounter (statuses as of 10/15/2022) [address] History of Past illness Narrative* Problem Noted Date Resolved Date Chest pain 06/04/2018 documented as of this encounter (statuses as of 11/16/2022) [address] History of Past illness Narrative* Problem Noted Date Resolved Date Chest pain 06/04/2018 documented as of this encounter (statuses as of 11/21/2022) [place] [address] History of Past illness Narrative* Problem Noted Date Resolved Date Chest pain 06/04/2018 documented as of this encounter (statuses as of 12/07/2022) [address] History of Past illness Narrative* Problem Noted Date Resolved Date Chest pain 06/04/2018 documented as of this encounter (statuses as of 12/15/2022) [address] History of Past illness Narrative* Problem Noted Date Resolved Date Chest pain 06/04/2018 documented as of this encounter (statuses as of 12/19/2022) [address]2018 History of Past illness Narrative* Problem Noted Date Resolved Date Chest pain 06/04/2018 documented as of this encounter (statuses as of 12/24/2022) [address]2018 History of Past illness Narrative* Problem Noted Date Resolved Date Chest pain 06/04/2018 documented as of this encounter (statuses as of 12/25/2022) [address]2018 History of Past illness Narrative* Problem Noted Date Resolved Date Chest pain 06/04/2018 documented as of this encounter (statuses as of 01/07/2023) [address]2018 History of Past illness Narrative* Problem Noted Date Resolved Date Chest pain 06/04/2018 documented as of this encounter (statuses as of 01/10/2023) [address]2018 History of Past illness Narrative* Problem Noted Date Resolved Date Chest pain 06/04/2018 documented as of this encounter (statuses as of 01/11/2023) [place] [address] History of Past illness Narrative* Problem Noted Date Resolved Date Chest pain 06/04/2018 documented as of this encounter (statuses as of 01/24/2023) [address]2018 History of Past illness Narrative* Problem Noted Date Resolved Date Chest pain 06/04/2018 documented as of this encounter (statuses as of 02/01/2023) [address]2018 History of Past illness Narrative* Problem Noted Date Resolved Date Chest pain 06/04/2018 documented as of this encounter (statuses as of 02/04/2023) [address]2018 History of Past illness Narrative* Problem Noted Date Resolved Date Chest pain 06/04/2018 documented as of this encounter (statuses as of 02/16/2023) [place] [address] History of Past illness Narrative* Problem Noted Date Resolved Date Chest pain 06/04/2018 documented as of this encounter (statuses as of 02/19/2023) [place] [address] History of Past illness Narrative* Problem Noted Date Resolved Date Chest pain 06/04/2018 documented as of this encounter (statuses as of 03/07/2023) [place] [address] History of Past illness Narrative* Problem Noted Date Resolved Date Chest pain 06/04/2018 documented as of this encounter (statuses as of 04/02/2023) [address]2018 History of Past illness Narrative* Problem Noted Date Diagnosed Date Resolved Date Chest pain 06/04/2018 documented as of this encounter (statuses as of 05/15/2023) [address]2018 History of Past illness Narrative* Problem Noted Date Diagnosed Date Resolved Date Chest pain 06/04/2018 documented as of this encounter (statuses as of 05/23/2023) [address]2018 History of Past illness Narrative* Problem Noted Date Diagnosed Date Resolved Date Chest pain 06/04/2018 documented as of this encounter (statuses as of 06/14/2023) [address]2018 History of Past illness Narrative* Problem Noted Date Diagnosed Date Resolved Date Chest pain 06/04/2018 documented as of this encounter (statuses as of 09/03/2023) [place] [address] History of Past illness Narrative* Problem Noted Date Diagnosed Date Resolved Date Chest pain 06/04/2018 documented as of this encounter (statuses as of 09/09/2023) [place] [address] History of Past illness Narrative* Problem Noted Date Diagnosed Date Resolved Date Chest pain 06/04/2018 documented as of this encounter (statuses as of 09/10/2023) [address]2018 History of Past illness Narrative* Problem Noted Date Diagnosed Date Resolved Date Chest pain 06/04/2018 documented as of this encounter (statuses as of 09/10/2023) [address]2018 History of Past illness Narrative* Problem Noted Date Diagnosed Date Resolved Date Chest pain 06/04/2018 documented as of this encounter (statuses as of 09/13/2023) [address]2018 History of Past illness Narrative* Problem Noted Date Diagnosed Date Resolved Date Chest pain 06/04/2018 documented as of this encounter (statuses as of 09/13/2023) [address]2018 History of Past illness Narrative* Problem Noted Date Diagnosed Date Resolved Date Chest pain 06/04/2018 documented as of this encounter (statuses as of 11/12/2023) [address] History of Past illness Narrative* Problem Noted Date Diagnosed Date Resolved Date Chest pain 06/04/2018 documented as of this encounter (statuses as of 01/24/2024) [facility]-29-2018 History of Past illness Narrative* Problem Noted Date Diagnosed Date Resolved Date Chest pain 06/04/2018 documented as of this encounter (statuses as of 01/24/2024) [facility]-29-2018 History of Past illness Narrative* Problem Noted Date Diagnosed Date Resolved Date Chest pain 06/04/2018 documented as of this encounter (statuses as of 01/24/2024) [facility] Chief Complaint COVID-19 SINUS INFECTION LEFT SIDE THYROID FEELS VERY PROMINENT [facility] COVID/SYMPTOMATIC MS Reason for Visit Acute maxillary sinu sitis, unspecified Acute maxillary sinusitis, unspecified Contact with or suspected exposure to other viral communicable disease [facility] Work Phone: Evaluation note* Diagnosis Vitamin D deficiency- Primary Unspecified vitamin D deficiency Multiple sclerosis, relapsing-remitting (HCC) Multiple sclerosis Spasm Abnormal involuntary movements [facility] Diagnosis Multiple sclerosis (HCC) Multiple sclerosis documented in this encounter [facility]* Diagnosis Onset Date Resolution Status Acute maxillary sinusitis, unspecified acute Acute maxillary sinusitis, unspecified acute Contact with or suspected ex posure to other viral communicable disease acute [facility] Work Phone: Evaluation note* Diagnosis Encounter for gynecological examination (general) (routine) without abnormal findings- Primary Surveillance for control, oral contraceptives Surveillance of previously prescribed contraceptive pill Obesity (BMI 35.0-39.9 without comorbidity) Obesity, unspecified [facility]* Diagnosis Multiple sclerosis (HCC) Multiple sclerosis [facility] Diagnosis Surveillance for control, oral contraceptives Surveillance of previously prescribed contraceptive pill [facility] Diagnosis Epigastric pain- Primary Abdominal pain, epigastric RUQ pain Abdominal pain, right upper quadrant documented in this encounter [facility] noteNo assessment information [facility]WF[facility] Work Phone: [facility]* Diagnosis Essential hypertension- Primary Unspecified essential hypertension Mixed hyperlipidemia Postprocedural hypothyroidism Postsurgical hypothyroidism Migraine with aura and without status migrainosus, not intractable Migraine with aura, without mention of intractable migraine without mention of status migrainosus GERD without esophagitis Esophageal reflux Multiple sclerosis (HCC) Multiple sclerosis Takotsubo cardiomyopathy Takotsubo syndrome Chronic systolic heart failure (HCC) Chronic systolic heart failure Generalized anxiety disorder Obesity, Class II, BMI 35-39.9 Obesity, unspecified Encounter for immunization Need for other specified prophylactic vaccination against single bacterial disease [facility] Diagnosis Cardiomyopathy, unspecified type (HCC) [facility]* Diagnosis Multiple sclerosis, relapsing-remitting (HCC) Multiple sclerosis [facility] Diagnosis Depression, unspecified depression type- Primary [facility]* Diagnosis Multiple sclerosis, relapsing-remitting (HCC)- Primary Multiple sclerosis [facility]* Diagnosis Multiple sclerosis, relapsing-remitting (HCC) Multiple sclerosis [facility]* Diagnosis Multiple sclerosis, relapsing-remitting (HCC) Multiple sclerosis [facility] Diagnosis Multiple sclerosis, relapsing-remitting (HCC) Multiple sclerosis [facility] Diagnosis Skin cancer screening- Primary Screening for malignant neoplasm of the skin [facility]* Diagnosis Essential hypertension- Primary Unspecified essential hypertension GERD without esophagitis Esophageal reflux Postprocedural hypothyroidism Postsurgical hypothyroidism Medication management Encounter for long-term (current) use of other medications Encounter for screening for diabetes mellitus Screening for diabetes mellitus documented in this encounter [facility]* Diagnosis Well adult exam- Primary Routine general medical examination at a health care facility Essential hypertension Unspecified essential hypertension Mixed hyperlipidemia Postprocedural hypothyroidism Postsurgical hypothyroidism GERD without esophagitis Esophageal reflux Generalized anxiety disorder Depression, unspecified depression type Migraine with aura and without status migrainosus, not intractable Migraine with aura, without mention of intractable migraine without mention of status migrainosus Takotsubo cardiomyopathy Takotsubo syndrome Cardiomyopathy, unspecified type (HCC) Chronic systolic heart failure (HCC) Chronic systolic heart failure Multiple sclerosis (HCC) Multiple sclerosis Obesity, Class III, BMI 40-49.9 (morbid obesity) (HCC) Morbid obesity PCOS (polycystic ovarian syndrome) Polycystic ovaries [facility] Diagnosis Multiple sclerosis (HCC) [facility] Diagnosis Postprocedural hypothyroidism- Primary Postsurgical hypothyroidism [facility]* Diagnosis Multiple sclerosis, relapsing-remitting (HCC) Multiple sclerosis [facility]* Diagnosis Cardiomyopathy, unspecified type (HCC) Multiple sclerosis (HCC) Multiple sclerosis Encounter for immunization- Primary Need for other specified prophylactic vaccination against single bacterial disease [facility] Diagnosis Essential hypertension- Primary Unspecified essential hypertension Mixed hyperlipidemia Postprocedural hypothyroidism Postsurgical hypothyroidism GERD without esophagitis Esophageal reflux Migraine with aura and without status migrainosus, not intractable Migraine with aura, without mention of intractable migraine without mention of status migrainosus Multiple sclerosis (HCC) Multiple sclerosis Generalized anxiety disorder Depression, unspecified depression type Chronic systolic heart failure (HCC) Chronic systolic heart failure Cardiomyopathy, unspecified type (HCC) Rib pain Chest pain, unspecified Obesity, Class III, BMI 40-49.9 (morbid obesity) (HCC) Morbid obesity Medication management Encounter for long-term (current) use of other medications Encounter for screening for diabetes mellitus Screening for diabetes mellitus Impacted cerumen of right ear Impacted cerumen [facility] Diagnosis Multiple sclerosis, relapsing-remitting (HCC) Multiple sclerosis [facility] Diagnosis Cardiomyopathy, unspecified type (HCC) Multiple sclerosis (HCC) Multiple sclerosis [facility] Diagnosis Encounter for screening mammogram for breast cancer [facility] Diagnosis Well adult exam- Primary Routine general medical examination at a health care facility Essential hypertension Unspecified essential hypertension Mixed hyperlipidemia Postprocedural hypothyroidism Postsurgical hypothyroidism GERD without esophagitis Esophageal reflux Migraine with aura and without status migrainosus, not intractable Migraine with aura, without mention of intractable migraine without mention of status migrainosus Chronic systolic heart failure (HCC) Chronic systolic heart failure Cardiomyopathy, unspecified type (HCC) Takotsubo cardiomyopathy Takotsubo syndrome Multiple sclerosis (HCC) Multiple sclerosis Generalized anxiety disorder Depression, unspecified depression type Obesity, Class III, BMI 40-49.9 (morbid obesity) (HCC) Morbid obesity Muscle spasm Spasm of muscle Numbness and tingling of left leg Disturbance of skin sensation Medication management Encounter for long-term (current) use of other medications [facility] Diagnosis Multiple sclerosis (HCC) Multiple sclerosis [facility]* Diagnosis Surveillance for control, oral contraceptives Surveillance of previously prescribed contraceptive pill [facility]* Diagnosis Multiple sclerosis, relapsing-remitting (HCC) Multiple sclerosis documented in this encounter [facility]* Diagnosis Cardiomyopathy, unspecified type (HCC) [facility]* Diagnosis Multiple sclerosis, relapsing-remitting (HCC) Multiple sclerosis [facility]* Diagnosis Multiple sclerosis, relapsing-remitting (HCC) Multiple sclerosis [facility]* Diagnosis Multiple sclerosis (HCC) Multiple sclerosis documented in this encounter [facility] note* Diagnosis Multiple sclerosis (HCC) Multiple sclerosis Cardiomyopathy, unspecified type (HCC) documented in this encounter [facility] note* Diagnosis Essential hypertension- Primary Unspecified essential hypertension Mixed hyperlipidemia GERD without esophagitis Esophageal reflux Postprocedural hypothyroidism Postsurgical hypothyroidism Chronic systolic heart failure (HCC) Chronic systolic heart failure Cardiomyopathy, unspecified type (HCC) Takotsubo cardiomyopathy Takotsubo syndrome Generalized anxiety disorder Depression, unspecified depression type Migraine with aura and without status migrainosus, not intractable Migraine with aura, without mention of intractable migraine without mention of status migrainosus Multiple sclerosis (HCC) Multiple sclerosis Obesity, Class III, BMI 40-49.9 (morbid obesity) (HCC) Morbid obesity Encounter for screening mammogram for breast cancer Acute otitis externa of right ear, unspecified type Medication management Encounter for long-term (current) use of other medications Encounter for screening for diabetes mellitus Screening for diabetes mellitus documented in this encounter [facility]* Diagnosis Encounter for gynecological examination (general) (routine) without abnormal findings- Primary Surveillance for control, oral contraceptives Surveillance of previously prescribed contraceptive pill documented in this encounter [facility] note* Diagnosis Multiple sclerosis, relapsing-remitting (HCC)- Primary Multiple sclerosis [facility]* Diagnosis Cardiomyopathy, unspecified type (HCC) Multiple sclerosis (HCC) Multiple sclerosis [facility]* Diagnosis Multiple sclerosis (HCC)- Primary Multiple sclerosis documented in this encounter [facility] for referral (narrative)* Diagnostic Procedure Only (Routine) - Pending Review Specialty Diagnoses / Procedures Referred By Mary elizondo Referred To Contact XR IMAGING Diagnoses Rib pain Procedures XR RIBS BILATERAL/CHEST 4V RADEX RIBS BI W/POSTEROANT CH MINIMUM 4 VIEWS Isael Fish MD [address] [place] [address] [place] [address] Referral ID Status Reason Start Date Expiration Date Visits Requested Visits Authorized [id number] Pending Review Auto-Generat ed Referral 09/11/2023 10/10/2024 1 1 [facility] for referral (narrative)* Diagnostic Procedure Only (Routine) - Pending Review Specialty Diagnoses / Procedures Referred By Mary elizondo Referred To Contact BR IMAGING Diagnoses Encounter for screening mammogram for breast cancer Procedures JONAS SCREENING SCREENING MAMMOGRAPHY BI 2-VIEW BREAST INC CAD Isael Fish MD [address] [place] [address] [facility] [address] [place] [address] Referral ID Status Reason Start Date Expiration Date Visits Requested Visits Authorized [id number] Pending Review Auto-Generat ed Referral 02/05/2024 03/06/2025 1 1 [facility] Summary Purpose Family History No Family History Records Found Relationship Condition Age at Onset Recorded Date/T anabella father Sudden cardiac 58 Myocardial infarction 60 mother Diabetes mellitus Unknown History of aortic va lve replacement with bioprosthetic valve Unknown grandmother Cerebrovascular accident (CVA) Unknown Atrial fibrillation Unknown Advance Directives No Advanced Directives Records Found Advance Directive Response Recorded Date/ Time Living Will No March 03, 2020 2 :26pm Power of Accounts Receivable Administrator No March 03, 2020 2:26pm Advance Directive Response Recorded Date/ Time Living Will No March 03, 2020 1 :26pm Power of Accounts Receivable Administrator No March 03, 2020 1:26pm Advance Directive Response Recorded Date/ Time Living Will No September 21 9:06pm Power of Accounts Receivable Administrator No September 21, 2022 9:06pm Reason for Referral Specialty Diagnoses / Procedures Referred By Contac t Referred To Contact MR IMAGING Diagnoses Multiple sclerosis, relapsing-remitting (HCC) Procedures MRI BRAIN WO/W IVCON MRI BRAIN BRAIN STEM W/O W/CONTRAST MATERIAL Elder Chao PA-C [address] [place] [address] Mr Imaging Referral ID Status Reason Start Date Expiration Date Visits Requested Visits Authorized [id number] Pending Review Auto-Generat ed Referral 12/27/2021 01/26/2023 1 1 Specialty Diagnoses / Procedures Referred By Contac t Referred To Contact Diagnoses Depression, unspecified depression type Procedures CONSULT TO PSYCHIATRY OFFICE/OUTPATIENT [facility] 60-74 MINUTES Isael Fish MD [address] [place] [id number] Referral ID Status Reason Start Date Expiration Date Visits Requested Visits Authorized [id number] Pending Review PCP Requested Referral 10/15/2022 10/15/2023 1 1 Referral ID Status Reason Start Date Expiration Date Visits Requested Visits Authorized [id number] Pending Review Auto-Generat ed Referral 12/06/2022 01/05/2024 1 1 Specialty Diagnoses / Procedures Referred By Contac t Referred To Contact Dermatology Diagnoses Skin cancer screening Procedures CONSULT TO DERMATOLOGY Isael Fish MD [address] [place] [id number] Referral ID Status Reason Start Date Expiration Date Visits Requested Visits Authorized [id number] Ref Not Required PCP Requested Referral 02/04/2023 02/04/2024 1 1 Specialty Diagnoses / Procedures Referred By Contac t Referred To Contact General Surgery Diagnoses GERD without esophagitis Procedures CONSULT TO GENERAL SURGERY OFFICE/OUTPATIENT [facility] 60-74 MINUTES Isael Fish MD [address] [place] [id number] Referral ID Status Reason Start Date Expiration Date Visits Requested Visits Authorized [id number] Authorized PCP Requested Referral 03/06/2023 03/05/2024 1 1 Chief Complaint and Reason for Visit Chief Complaint RUQ PAIN Chief Complaint RUQ PAIN chest pain Additional Source Comments INFORMATION SOURCE (unrecogn ized section and content) DATE CREATED AUTHOR 06/07/2018 [facility] DATE CREATED AUTHOR AUTHOR'S ORGANIZ ATION 07/16/2018 [facility] DATE CREATED AUTHOR AUTHOR'S ORGANIZ ATION 02/14/2025 [facility] DATE CREATED AUTHOR AUTHOR'S ORGANIZ ATION 04/20/2025 [facility] Source Comments (unrecognize d section and content) In the event this informatio n is protected by the Federal Confidentiality of Alcohol and Drug Abuse Patient Records regulations: The Federal rules restrict any use of the information to criminally investigate or prosecute any alcohol or drug abuse patient.[facility] the event this information is protected by the Federal Confidentiality of Alcohol and Drug Abuse Patient Records regulations: The Federal rules restrict any use of the information to criminally investigate or prosecute any alcohol or drug abuse patient.[facility] HospitalIn the event this information is protected by the Federal Confidentiality of Alcohol and Drug Abuse Patient Records regulations: The Federal rules restrict any use of the information to criminally investigate or prosecute any alcohol or drug abuse patient.[facility] HospitalIn the event this information is protected by the Federal Confidentiality of Alcohol and Drug Abuse Patient Records regulations: The Federal rules restrict any use of the information to criminally investigate or prosecute any alcohol or drug abuse patient.[facility] HospitalIn the event this information is protected by the Federal Confidentiality of Alcohol and Drug Abuse Patient Records regulations: The Federal rules restrict any use of the information to criminally investigate or prosecute any alcohol or drug abuse patient.[facility] HospitalIn the event this information is protected by the Federal Confidentiality of Alcohol and Drug Abuse Patient Records regulations: The Federal rules restrict any use of the information to criminally investigate or prosecute any alcohol or drug abuse patient.[facility] HospitalIn the event this information is protected by the Federal Confidentiality of Alcohol and Drug Abuse Patient Records regulations: The Federal rules restrict any use of the information to criminally investigate or prosecute any alcohol or drug abuse patient.[facility] HospitalIn the event this information is protected by the Federal Confidentiality of Alcohol and Drug Abuse Patient Records regulations: The Federal rules restrict any use of the information to criminally investigate or prosecute any alcohol or drug abuse patient.[facility] HospitalIn the event this information is protected by the Federal Confidentiality of Alcohol and Drug Abuse Patient Records regulations: The Federal rules restrict any use of the information to criminally investigate or prosecute any alcohol or drug abuse patient.[facility] HospitalIn the event this information is protected by the Federal Confidentiality of Alcohol and Drug Abuse Patient Records regulations: The Federal rules restrict any use of the information to criminally investigate or prosecute any alcohol or drug abuse patient.[facility] HospitalIn the event this information is protected by the Federal Confidentiality of Alcohol and Drug Abuse Patient Records regulations: The Federal rules restrict any use of the information to criminally investigate or prosecute any alcohol or drug abuse patient.[facility] HospitalIn the event this information is protected by the Federal Confidentiality of Alcohol and Drug Abuse Patient Records regulations: The Federal rules restrict any use of the information to criminally investigate or prosecute any alcohol or drug abuse patient.[facility] HospitalIn the event this information is protected by the Federal Confidentiality of Alcohol and Drug Abuse Patient Records regulations: The Federal rules restrict any use of the information to criminally investigate or prosecute any alcohol or drug abuse patient.[facility] HospitalIn the event this information is protected by the Federal Confidentiality of Alcohol and Drug Abuse Patient Records regulations: The Federal rules restrict any use of the information to criminally investigate or prosecute any alcohol or drug abuse patient.[facility] HospitalIn the event this information is protected by the Federal Confidentiality of Alcohol and Drug Abuse Patient Records regulations: The Federal rules restrict any use of the information to criminally investigate or prosecute any alcohol or drug abuse patient.[facility] HospitalIn the event this information is protected by the Federal Confidentiality of Alcohol and Drug Abuse Patient Records regulations: The Federal rules restrict any use of the information to criminally investigate or prosecute any alcohol or drug abuse patient.[facility] HospitalIn the event this information is protected by the Federal Confidentiality of Alcohol and Drug Abuse Patient Records regulations: The Federal rules restrict any use of the information to criminally investigate or prosecute any alcohol or drug abuse patient.[facility] HospitalIn the event this information is protected by the Federal Confidentiality of Alcohol and Drug Abuse Patient Records regulations: The Federal rules restrict any use of the information to criminally investigate or prosecute any alcohol or drug abuse patient.[facility] HospitalIn the event this information is protected by the Federal Confidentiality of Alcohol and Drug Abuse Patient Records regulations: The Federal rules restrict any use of the information to criminally investigate or prosecute any alcohol or drug abuse patient.[facility] HospitalIn the event this information is protected by the Federal Confidentiality of Alcohol and Drug Abuse Patient Records regulations: The Federal rules restrict any use of the information to criminally investigate or prosecute any alcohol or drug abuse patient.[facility] HospitalIn the event this information is protected by the Federal Confidentiality of Alcohol and Drug Abuse Patient Records regulations: The Federal rules restrict any use of the information to criminally investigate or prosecute any alcohol or drug abuse patient.[facility] HospitalIn the event this information is protected by the Federal Confidentiality of Alcohol and Drug Abuse Patient Records regulations: The Federal rules restrict any use of the information to criminally investigate or prosecute any alcohol or drug abuse patient.[facility] HospitalIn the event this information is protected by the Federal Confidentiality of Alcohol and Drug Abuse Patient Records regulations: The Federal rules restrict any use of the information to criminally investigate or prosecute any alcohol or drug abuse patient.[facility] HospitalIn the event this information is protected by the Federal Confidentiality of Alcohol and Drug Abuse Patient Records regulations: The Federal rules restrict any use of the information to criminally investigate or prosecute any alcohol or drug abuse patient.[facility] HospitalIn the event this information is protected by the Federal Confidentiality of Alcohol and Drug Abuse Patient Records regulations: The Federal rules restrict any use of the information to criminally investigate or prosecute any alcohol or drug abuse patient.[facility] HospitalIn the event this information is protected by the Federal Confidentiality of Alcohol and Drug Abuse Patient Records regulations: The Federal rules restrict any use of the information to criminally investigate or prosecute any alcohol or drug abuse patient.[facility] HospitalIn the event this information is protected by the Federal Confidentiality of Alcohol and Drug Abuse Patient Records regulations: The Federal rules restrict any use of the information to criminally investigate or prosecute any alcohol or drug abuse patient.[facility] HospitalIn the event this information is protected by the Federal Confidentiality of Alcohol and Drug Abuse Patient Records regulations: The Federal rules restrict any use of the information to criminally investigate or prosecute any alcohol or drug abuse patient.[facility] HospitalIn the event this information is protected by the Federal Confidentiality of Alcohol and Drug Abuse Patient Records regulations: The Federal rules restrict any use of the information to criminally investigate or prosecute any alcohol or drug abuse patient.[facility] HospitalIn the event this information is protected by the Federal Confidentiality of Alcohol and Drug Abuse Patient Records regulations: The Federal rules restrict any use of the information to criminally investigate or prosecute any alcohol or drug abuse patient.[facility] HospitalIn the event this information is protected by the Federal Confidentiality of Alcohol and Drug Abuse Patient Records regulations: The Federal rules restrict any use of the information to criminally investigate or prosecute any alcohol or drug abuse patient.[facility] HospitalIn the event this information is protected by the Federal Confidentiality of Alcohol and Drug Abuse Patient Records regulations: The Federal rules restrict any use of the information to criminally investigate or prosecute any alcohol or drug abuse patient.[facility] HospitalIn the event this information is protected by the Federal Confidentiality of Alcohol and Drug Abuse Patient Records regulations: The Federal rules restrict any use of the information to criminally investigate or prosecute any alcohol or drug abuse patient.[facility] HospitalIn the event this information is protected by the Federal Confidentiality of Alcohol and Drug Abuse Patient Records regulations: The Federal rules restrict any use of the information to criminally investigate or prosecute any alcohol or drug abuse patient.[facility] HospitalIn the event this information is protected by the Federal Confidentiality of Alcohol and Drug Abuse Patient Records regulations: The Federal rules restrict any use of the information to criminally investigate or prosecute any alcohol or drug abuse patient.[facility] HospitalIn the event this information is protected by the Federal Confidentiality of Alcohol and Drug Abuse Patient Records regulations: The Federal rules restrict any use of the information to criminally investigate or prosecute any alcohol or drug abuse patient.[facility] HospitalIn the event this information is protected by the Federal Confidentiality of Alcohol and Drug Abuse Patient Records regulations: The Federal rules restrict any use of the information to criminally investigate or prosecute any alcohol or drug abuse patient.[facility] HospitalIn the event this information is protected by the Federal Confidentiality of Alcohol and Drug Abuse Patient Records regulations: The Federal rules restrict any use of the information to criminally investigate or prosecute any alcohol or drug abuse patient.[facility] HospitalIn the event this information is protected by the Federal Confidentiality of Alcohol and Drug Abuse Patient Records regulations: The Federal rules restrict any use of the information to criminally investigate or prosecute any alcohol or drug abuse patient.[facility] HospitalIn the event this information is protected by the Federal Confidentiality of Alcohol and Drug Abuse Patient Records regulations: The Federal rules restrict any use of the information to criminally investigate or prosecute any alcohol or drug abuse patient.[facility] HospitalIn the event this information is protected by the Federal Confidentiality of Alcohol and Drug Abuse Patient Records regulations: The Federal rules restrict any use of the information to criminally investigate or prosecute any alcohol or drug abuse patient.[facility] HospitalIn the event this information is protected by the Federal Confidentiality of Alcohol and Drug Abuse Patient Records regulations: The Federal rules restrict any use of the information to criminally investigate or prosecute any alcohol or drug abuse patient.[facility] HospitalIn the event this information is protected by the Federal Confidentiality of Alcohol and Drug Abuse Patient Records regulations: The Federal rules restrict any use of the information to criminally investigate or prosecute any alcohol or drug abuse patient.[facility] HospitalIn the event this information is protected by the Federal Confidentiality of Alcohol and Drug Abuse Patient Records regulations: The Federal rules restrict any use of the information to criminally investigate or prosecute any alcohol or drug abuse patient.[facility] HospitalIn the event this information is protected by the Federal Confidentiality of Alcohol and Drug Abuse Patient Records regulations: The Federal rules restrict any use of the information to criminally investigate or prosecute any alcohol or drug abuse patient.[facility] HospitalIn the event this information is protected by the Federal Confidentiality of Alcohol and Drug Abuse Patient Records regulations: The Federal rules restrict any use of the information to criminally investigate or prosecute any alcohol or drug abuse patient.[facility] HospitalIn the event this information is protected by the Federal Confidentiality of Alcohol and Drug Abuse Patient Records regulations: The Federal rules restrict any use of the information to criminally investigate or prosecute any alcohol or drug abuse patient.[facility] HospitalIn the event this information is protected by the Federal Confidentiality of Alcohol and Drug Abuse Patient Records regulations: The Federal rules restrict any use of the information to criminally investigate or prosecute any alcohol or drug abuse patient.[facility] HospitalIn the event this information is protected by the Federal Confidentiality of Alcohol and Drug Abuse Patient Records regulations: The Federal rules restrict any use of the information to criminally investigate or prosecute any alcohol or drug abuse patient.[facility] HospitalIn the event this information is protected by the Federal Confidentiality of Alcohol and Drug Abuse Patient Records regulations: The Federal rules restrict any use of the information to criminally investigate or prosecute any alcohol or drug abuse patient.[facility] HospitalIn the event this information is protected by the Federal Confidentiality of Alcohol and Drug Abuse Patient Records regulations: The Federal rules restrict any use of the information to criminally investigate or prosecute any alcohol or drug abuse patient.[facility] HospitalIn the event this information is protected by the Federal Confidentiality of Alcohol and Drug Abuse Patient Records regulations: The Federal rules restrict any use of the information to criminally investigate or prosecute any alcohol or drug abuse patient.[facility] HospitalIn the event this information is protected by the Federal Confidentiality of Alcohol and Drug Abuse Patient Records regulations: The Federal rules restrict any use of the information to criminally investigate or prosecute any alcohol or drug abuse patient.[facility] HospitalIn the event this information is protected by the Federal Confidentiality of Alcohol and Drug Abuse Patient Records regulations: The Federal rules restrict any use of the information to criminally investigate or prosecute any alcohol or drug abuse patient.[facility] HospitalIn the event this information is protected by the Federal Confidentiality of Alcohol and Drug Abuse Patient Records regulations: The Federal rules restrict any use of the information to criminally investigate or prosecute any alcohol or drug abuse patient.[facility] HospitalIn the event this information is protected by the Federal Confidentiality of Alcohol and Drug Abuse Patient Records regulations: The Federal rules restrict any use of the information to criminally investigate or prosecute any alcohol or drug abuse patient.[facility] HospitalIn the event this information is protected by the Federal Confidentiality of Alcohol and Drug Abuse Patient Records regulations: The Federal rules restrict any use of the information to criminally investigate or prosecute any alcohol or drug abuse patient.[facility] HospitalIn the event this information is protected by the Federal Confidentiality of Alcohol and Drug Abuse Patient Records regulations: The Federal rules restrict any use of the information to criminally investigate or prosecute any alcohol or drug abuse patient.[facility] HospitalIn the event this information is protected by the Federal Confidentiality of Alcohol and Drug Abuse Patient Records regulations: The Federal rules restrict any use of the information to criminally investigate or prosecute any alcohol or drug abuse patient.[facility] HospitalIn the event this information is protected by the Federal Confidentiality of Alcohol and Drug Abuse Patient Records regulations: The Federal rules restrict any use of the information to criminally investigate or prosecute any alcohol or drug abuse patient.[facility] HospitalIn the event this information is protected by the Federal Confidentiality of Alcohol and Drug Abuse Patient Records regulations: The Federal rules restrict any use of the information to criminally investigate or prosecute any alcohol or drug abuse patient.[facility] HospitalIn the event this information is protected by the Federal Confidentiality of Alcohol and Drug Abuse Patient Records regulations: The Federal rules restrict any use of the information to criminally investigate or prosecute any alcohol or drug abuse patient.[facility] HospitalIn the event this information is protected by the Federal Confidentiality of Alcohol and Drug Abuse Patient Records regulations: The Federal rules restrict any use of the information to criminally investigate or prosecute any alcohol or drug abuse patient.[facility] HospitalIn the event this information is protected by the Federal Confidentiality of Alcohol and Drug Abuse Patient Records regulations: The Federal rules restrict any use of the information to criminally investigate or prosecute any alcohol or drug abuse patient.[facility] HospitalIn the event this information is protected by the Federal Confidentiality of Alcohol and Drug Abuse Patient Records regulations: The Federal rules restrict any use of the information to criminally investigate or prosecute any alcohol or drug abuse patient.[facility] HospitalIn the event this information is protected by the Federal Confidentiality of Alcohol and Drug Abuse Patient Records regulations: The Federal rules restrict any use of the information to criminally investigate or prosecute any alcohol or drug abuse patient.[facility] HospitalIn the event this information is protected by the Federal Confidentiality of Alcohol and Drug Abuse Patient Records regulations: The Federal rules restrict any use of the information to criminally investigate or prosecute any alcohol or drug abuse patient.[facility] HospitalIn the event this information is protected by the Federal Confidentiality of Alcohol and Drug Abuse Patient Records regulations: The Federal rules restrict any use of the information to criminally investigate or prosecute any alcohol or drug abuse patient.[facility] HospitalIn the event this information is protected by the Federal Confidentiality of Alcohol and Drug Abuse Patient Records regulations: The Federal rules restrict any use of the information to criminally investigate or prosecute any alcohol or drug abuse patient.[facility] HospitalIn the event this information is protected by the Federal Confidentiality of Alcohol and Drug Abuse Patient Records regulations: The Federal rules restrict any use of the information to criminally investigate or prosecute any alcohol or drug abuse patient.[facility] HospitalIn the event this information is protected by the Federal Confidentiality of Alcohol and Drug Abuse Patient Records regulations: The Federal rules restrict any use of the information to criminally investigate or prosecute any alcohol or drug abuse patient.[facility] HospitalIn the event this information is protected by the Federal Confidentiality of Alcohol and Drug Abuse Patient Records regulations: The Federal rules restrict any use of the information to criminally investigate or prosecute any alcohol or drug abuse patient.[facility] HospitalIn the event this information is protected by the Federal Confidentiality of Alcohol and Drug Abuse Patient Records regulations: The Federal rules restrict any use of the information to criminally investigate or prosecute any alcohol or drug abuse patient.[facility] HospitalIn the event this information is protected by the Federal Confidentiality of Alcohol and Drug Abuse Patient Records regulations: The Federal rules restrict any use of the information to criminally investigate or prosecute any alcohol or drug abuse patient.[facility] HospitalIn the event this information is protected by the Federal Confidentiality of Alcohol and Drug Abuse Patient Records regulations: The Federal rules restrict any use of the information to criminally investigate or prosecute any alcohol or drug abuse patient.[facility] HospitalIn the event this information is protected by the Federal Confidentiality of Alcohol and Drug Abuse Patient Records regulations: The Federal rules restrict any use of the information to criminally investigate or prosecute any alcohol or drug abuse patient.[facility] HospitalIn the event this information is protected by the Federal Confidentiality of Alcohol and Drug Abuse Patient Records regulations: The Federal rules restrict any use of the information to criminally investigate or prosecute any alcohol or drug abuse patient.[facility] HospitalIn the event this information is protected by the Federal Confidentiality of Alcohol and Drug Abuse Patient Records regulations: The Federal rules restrict any use of the information to criminally investigate or prosecute any alcohol or drug abuse patient.[facility] HospitalIn the event this information is protected by the Federal Confidentiality of Alcohol and Drug Abuse Patient Records regulations: The Federal rules restrict any use of the information to criminally investigate or prosecute any alcohol or drug abuse patient.[facility] HospitalIn the event this information is protected by the Federal Confidentiality of Alcohol and Drug Abuse Patient Records regulations: The Federal rules restrict any use of the information to criminally investigate or prosecute any alcohol or drug abuse patient.[facility] Reason for Visit (unrecogniz ed section and content) Reason Comments Established Patient Follow-Up Reason Onset Date Comments Refill Request 01/15/2022 Reason Comments Opened In Error Reason Comments Well Woman Specialty Diagnoses / Procedures Referred By Contac t 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 Encounter for gynecological examination (general) (routine) without abnormal findings annual exam Procedures WELLNESS EXAMS EST 18-39 YRS EST I ANNUAL PATIENT 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, NIGHT FILLER.PSYCHIATRY PHYSICIAN [address] [place] [address] Referral ID Status Reason Start Date Expiration Date Visits Re quested Visits Authorized [id number] Closed 02/27/2022 10/06/2022 1 1 Reason Onset Date Comments Refill Request 04/13/2022 Reason Comments Refill Request Reason Onset Date Comments Refill Request 05/02/2022 Reason Comments Pain, Abdominal RUQ Specialty Diagnoses / Procedures Referred By Contac t Referred To Contact Family Practice / FAMILY MEDICINE Diagnoses Right upper quadrant pain RUQ pain Procedures OFFICE/OUTPATIENT ESTABLISHED MOD MDM 30-39 MIN 4C EST Isael Fish MD [address] [place] [id number] Isael Fish MD [address] [place] [id number] Referral ID Status Reason Start Date Expiration Date V isits Requested Visits Authorized [id number] Authorized 06/19/2022 10/06/2022 99 99 Reason Comments Results Reason Onset Date Comments Refill Request 07/24/2022 Reason Comments Forms FMLA Reason Comments F/U 6 months Specialty Diagnoses / Procedures Referred By Contac t Referred To Contact Family Medicine / FAMILY MEDICINE Diagnoses Right upper quadrant pain RUQ pain Procedures OFFICE/OUTPATIENT ESTABLISHED MOD MDM 30-39 MIN 4C EST Isael Fish MD [address] [place] [id number] Isael Fish MD [address] [place] [id number] Reason Comments Results, Lab Reason Onset Date Comments Refill Request 12/19/2022 Reason Onset Date Comments Refill Request 12/23/2022 Reason Onset Date Comments Refill Request 12/24/2022 Reason Onset Date Comments Refill Request 01/05/2023 Reason Comments Outside Dopg-[id number] Ordered Reason Comments Established Patient Follow-Up Reason Comments Physical Reason Onset Date Comments Refill Request 03/30/2023 Reason Onset Date Comments Refill Request 05/15/2023 Reason Onset Date Comments Refill Request 05/22/2023 Reason Comments ext results MRI and Labs Reason Onset Date Comments Refill Request 09/09/2023 Reason Comments Results X-ray Reason Comments F/U 6 months Reason Onset Date Comments Refill Request 01/24/2024 Reason Comments Ext / Labs Reason Comments Outside [facility] Ordered Reason Comments Outside Mammogram Reason Comments Physical Reason Comments Results Reason Comments Results EMG/NCS Reason Comments Consult Outside Consult for Ortho Reason Onset Date Comments Refill Request 05/25/2024 Reason Onset Date Comments Refill Request 05/29/2024 Reason Onset Date Comments Refill Request 08/29/2024 Reason Comments Appointment tried calling kvng elizondo to get her scheduled for a follow up but patients refused appointment Reason Onset Date Comments Refill Request 11/05/2024 Reason Onset Date Comments Refill Request 11/06/2024 Reason Comments 6 Month Exam Reason Onset Date Comments Refill Request 02/02/2025 Care Teams (unrecognized sec tion and content) Packaging Supervisor Relationship Specialty Start Date End Date Isael Fish MD [address] [place], [place] [id number] PCP - General Family Practice 03/14/16 [facility] Cardiology 12/24/16 Alfredito Hassan [address] [place] [id number] Athletics Director Cardiology 06/08/20 Packaging Supervisor Relationship Specialty Start Date End Date Isael Fish MD [address] [place], [place] [id number] PCP - General Family Practice 03/14/16 [facility] Cardiology 12/24/16 Alfredito Hassan [address] [place] [address] Athletics Director Cardiology 06/08/20 Packaging Supervisor Relationship Specialty Start Date End Date Isael Fish MD [address] [place] [address] PCP - General Family Practice 03/14/16 [facility]iology 12/24/16 Alfredito Hassan [address] [place] [address] Athletics Director Cardiology 06/08/20 Packaging Supervisor Relationship Specialty Start Date End Date Isael Fish MD [address] [place] [address] PCP - General Family Practice 03/14/16 [facility] Cardiology 12/24/16 Alfredito Hassan [address] [place] [address] Athletics Director Cardiology 06/08/20 Packaging Supervisor Relationship Specialty Start Date End Date Isael Fish MD [address] [place] [address] PCP - General Family Practice 03/14/16 [facility] Cardiology 12/24/16 Alfredito Hassan [address] [place] [address] Athletics Director Cardiology 06/08/20 Packaging Supervisor Relationship Specialty Start Date End Date Isael Fish MD [address] [place] [address] PCP - General Family Practice 03/14/16 [facility] Cardiology 12/24/16 Alfredito Hassan [address] [place] [address] Athletics Director Cardiology 06/08/20 Packaging Supervisor Relationship Specialty Start Date End Date Isael Fish MD [address] [place] [address] PCP - General Family Practice 03/14/16 [facility] Cardiology 12/24/16 Alfredito Hassan [address] [place] [address] Athletics Director Cardiology 06/08/20 Packaging Supervisor Relationship Specialty Start Date End Date Isael Fish MD [address] [place] [address] PCP - General Family Practice 03/14/16 [facility] Cardiology 12/24/16 Alfredito Hassan [address] [place] [address] Athletics Director Cardiology 06/08/20 Packaging Supervisor Relationship Specialty Start Date End Date Isael Fish MD [address] [place] [address] PCP - General Family Practice 03/14/16 [facility] Cardiology 12/24/16 Alfredito Hassan [address] [place] [address] Athletics Director Cardiology 06/08/20 Packaging Supervisor Relationship Specialty Start Date End Date Isael Fish MD [address] [place] [address] PCP - General Family Practice 03/14/16 [facility] Cardiology 12/24/16 Alfredito Hassan [address] [place] [address] Athletics Director Cardiology 06/08/20 Packaging Supervisor Relationship Specialty Start Date End Date Isael Fish MD [address] [place] [address] PCP - General Family Medicine 03/14/16 [facility], [facility] Cardiology 12/24/16 Alfredito Hassan [address] [place] [address] Athletics Director Cardiology 06/08/20 Packaging Supervisor Relationship Specialty Start Date End Date Isael Fish MD [address] [place] [address] PCP - General Family Medicine 03/14/16 [facility], [facility] [place] Cardiology 12/24/16 Alfredito Hassan [address] [place] [address] Athletics Director Cardiology 06/08/20 Packaging Supervisor Relationship Specialty Start Date End Date Isael Fish MD [address] [place] [address] PCP - General Family Medicine 03/14/16 [facility], [facility] Cardiology 12/24/16 Alfredito Hassan [address] [place] [address] Athletics Director Cardiology 06/08/20 Packaging Supervisor Relationship Specialty Start Date End Date Isael Fish MD [address] [place] [address] PCP - General Family Medicine 03/14/16 [facility] 12/24/16 Alfredito Hassan [address] [facility] [place] [address] Athletics Director Cardiology 06/08/20 Packaging Supervisor Relationship Specialty Start Date End Date Isael Fish MD [address] [place] [address] PCP - General Family Medicine 03/14/16 [facility] 12/24/16 Alfredito Hassan [address] [facility] [place] [address] Athletics Director Cardiology 06/08/20 Packaging Supervisor Relationship Specialty Start Date End Date Isael Fish MD [address] [place] [address] PCP - General Family Medicine 03/14/16 [facility] [address] [facility] [place] [address] Cardiology 12/24/16 Alfredito Hassan [address] [place] [address] Athletics Director Cardiology 06/08/20 Packaging Supervisor Relationship Specialty Start Date End Date Isael Fish MD [address] [place] [address] PCP - General Family Medicine 03/14/16 [facility] [address] [facility] [place] [address] Cardiology 12/24/16 Alfredito Hassan [address] [place] [address] Athletics Director Cardiology 06/08/20 Packaging Supervisor Relationship Specialty Start Date End Date Isael Fish MD [address] [place] [address] PCP - General Family Medicine 03/14/16 Gary Riley [address] [place] [place] [address] Cardiology 12/24/16 Alfredito Hassan [address] [place] [address] Athletics Director Cardiology 06/08/20 Packaging Supervisor Relationship Specialty Start Date End Date Isael Fish MD [address] [place] [address] PCP - General Family Medicine 03/14/16 Gary Riley [address] [place] [address] Cardiology 12/24/16 Alfredito Hassan [address] [place] [address] Athletics Director Cardiology 06/08/20 Packaging Supervisor Relationship Specialty Start Date End Date Isael Fish MD [address] [place] [address] PCP - General Family Medicine 03/14/16 Gary Riley [address] [place] [place] [address] Cardiology 12/24/16 Alfredito Hassan [address] [place] [address] Athletics Director Cardiology 06/08/20 Packaging Supervisor Relationship Specialty Start Date End Date Isael Fish MD [address] [facility] [place] [address] PCP - General Family Medicine 03/14/16 Gary Riley [address] [place] [address] Cardiology 12/24/16 Alfredito Hassan [address] [place] [address] Athletics Director Cardiology 06/08/20 Packaging Supervisor Relationship Specialty Start Date End Date Isael Fish MD [address] [place] [address] PCP - General Family Medicine 03/14/16 Gary Riley [address] [place] [address] Cardiology 12/24/16 Alfredito Hassan [address] [place] [address] Athletics Director Cardiology 06/08/20 Packaging Supervisor Relationship Specialty Start Date End Date Isael Fish MD [address] [place] [address] PCP - General Family Medicine 03/14/16 Gary Riley [address] [place] [address] Cardiology 12/24/16 Alfredito Hassan [address] [place] [address] Athletics Director Cardiology 06/08/20 Packaging Supervisor Relationship Specialty Start Date End Date Isael Fish MD [address] [place] [address] PCP - General Family Medicine 03/14/16 Gary Riley [address] [place] [place] [address] Cardiology 12/24/16 Alfredito Hassan [address] [place] [address] Athletics Director Cardiology 06/08/20 Packaging Supervisor Relationship Specialty Start Date End Date Isael Fish MD [address] [place] [address] PCP - General Family Medicine 03/14/16 Gary Riley [address] [place] [place] [address] Cardiology 12/24/16 Alfredito Hassan [address] [facility] [place] [address] Athletics Director Cardiology 06/08/20 Packaging Supervisor Relationship Specialty Start Date End Date Isael Fish MD [address] [facility] [place] [address] PCP - General Family Medicine 03/14/16 Gary Riley [address] [place] [place] [address] Cardiology 12/24/16 Alfredito Hassan [address] [place] [address] Athletics Director Cardiology 06/08/20 Packaging Supervisor Relationship Specialty Start Date End Date Isael Fish MD [address] [place] [address] PCP - General Family Medicine 03/14/16 Gary Riley [address] [place] [place] [address] Cardiology 12/24/16 Alfredito Hassan [address] [place] [address] Athletics Director Cardiology 06/08/20 Packaging Supervisor Relationship Specialty Start Date End Date Isael Fish MD [address] [place] [address] PCP - General Family Medicine 03/14/16 Gary Riley [address] [place] [place] [address] Cardiology 12/24/16 Alfredito Hassan [address] [place] [address] Athletics Director Cardiology 06/08/20 Packaging Supervisor Relationship Specialty Start Date End Date Isael Fish MD [address] [place] [place] [address] PCP - General Family Medicine 03/14/16 Gary Riley [address] [place] [address] Cardiology 12/24/16 Alfredito Hassan [address] [place] [address] Athletics Director Cardiology 06/08/20 Packaging Supervisor Relationship Specialty Start Date End Date Isael Fish MD [address] [place] [address] PCP - General Family Medicine 03/14/16 Gary Riley [address] [place] [place] [address] Cardiology 12/24/16 Alfredito Hassan MD [address] [place] [address] Athletics Director Cardiology 06/08/20 Packaging Supervisor Relationship Specialty Start Date End Date Isael Fish MD [address] [place] [address] PCP - General Family Medicine 03/14/16 Gary Riley [address] [place] [place] [address] Cardiology 12/24/16 Alfredito Hassan MD [address] [place] [address] Athletics Director Cardiology 06/08/20 Packaging Supervisor Relationship Specialty Start Date End Date Isael Fish MD [address] [facility] [place] [address] PCP - General Family Medicine 03/14/16 Gary Riley [address] [place] [address] Cardiology 12/24/16 Alfredito Hassan MD [address] [facility] [place] [address] Athletics Director Cardiology 06/08/20 Packaging Supervisor Relationship Specialty Start Date End Date Isael Fish MD [address] [place] [address] PCP - General Family Medicine 03/14/16 Gary Riley [address] [place] [place] [address] Cardiology 12/24/16 Alfredito Hassan MD [address] [facility] [place] [address] Athletics Director Cardiology 06/08/20 Packaging Supervisor Relationship Specialty Start Date End Date Isael Fish MD [address] [place] [address] PCP - General Family Medicine 03/14/16 Gary Riley [address] [place] [place] [address] Cardiology 12/24/16 Alfredito Hassan MD [address] [place] [address] Athletics Director Cardiology 06/08/20 Packaging Supervisor Relationship Specialty Start Date End Date Isael Fish MD [address] [place] [address] PCP - General Family Medicine 03/14/16 Gary Riley [address] [place] [address] Cardiology 12/24/16 Alfredito Hassan MD [address] [place] [address] Athletics Director Cardiology 06/08/20 Packaging Supervisor Relationship Specialty Start Date End Date Isael Fish MD [address] [place] [address] PCP - General Family Medicine 03/14/16 Gary Riley [address] [place] [address] Cardiology 12/24/16 Alfredito Hassan MD [address] [place] [address] Athletics Director Cardiology 06/08/20 Packaging Supervisor Relationship Specialty Start Date End Date Isael Fish MD [address] [place] [address] PCP - General Family Medicine 03/14/16 Gary Riley [address] [place] [address] Cardiology 12/24/16 Alfredito Hassan MD [address] [place] [address] Athletics Director Cardiology 06/08/20 Packaging Supervisor Relationship Specialty Start Date End Date Isael Fish MD [address] [place] [address] PCP - General Family Medicine 03/14/16 Gary Riley [address] [place] [address] Cardiology 12/24/16 [place] [address] [place] [address], [place] [address] Athletics Director Cardiology 06/08/20 Packaging Supervisor Relationship Specialty Start Date End Date Isael Fish MD [address] [place] [place] [address] PCP - General Family Medicine 03/14/16 Gary Riley [address] [place] [place] [address] Cardiology 12/24/16 Alfredito Hassan MD [address] [place] [place] [address] Athletics Director Cardiology 06/08/20 Packaging Supervisor Relationship Specialty Start Date End Date Isael Fish MD [address] [place] [place] [address] PCP - General Family Medicine 03/14/16 Gary Riley [address] [place] [address] Cardiology 12/24/16 Alfredito Hassan MD [address] [place] [address] Athletics Director Cardiology 06/08/20 Packaging Supervisor Relationship Specialty Start Date End Date Isael Fish MD [address] [place] [place] [address] PCP - General Family Medicine 03/14/16 Gary Rilye [address] [facility] [place] [address] Cardiology 12/24/16 Alfredito Hassan MD [address] [place] [address] Athletics Director Cardiology 06/08/20 Packaging Supervisor Relationship Specialty Start Date End Date Isael Fish MD [address] [place] [address] PCP - General Family Medicine 03/14/16 Gary Riley [address] [facility] [place] [address] Cardiology 12/24/16 Alfredito Hassan MD [address] [facility] [place] [address] Athletics Director Cardiology 06/08/20 Packaging Supervisor Relationship Specialty Start Date End Date Isael Fish MD [address] [facility] [place] [address] PCP - General Family Medicine 03/14/16 Gary Riley [address] [facility] [place] [address] Cardiology 12/24/16 Alfredito Hassan MD [address] [place] [address] Athletics Director Cardiology 06/08/20 Packaging Supervisor Relationship Specialty Start Date End Date Isael Fish MD [address] [facility] [place] [address] PCP - General Family Medicine 03/14/16 Gary Riley [address] [facility] [place] [address] Cardiology 12/24/16 Alfredito Hassan MD [address] [place] [address] Athletics Director Cardiology 06/08/20 Packaging Supervisor Relationship Specialty Start Date End Date Isael Fish MD [address] [place] [address] PCP - General Family Medicine 03/14/16 Gary Riley [address] [place] [address] Cardiology 12/24/16 Alfredito Hassan MD [address] [place] [address] Athletics Director Cardiology 06/08/20 Packaging Supervisor Relationship Specialty Start Date End Date Isael Fish MD [address] [place] [address] PCP - General Family Medicine 03/14/16 Gary Riley [address] [place] [address] Cardiology 12/24/16 Alfredito Hassan MD [address] [place] [address] Athletics Director Cardiology 06/08/20 Packaging Supervisor Relationship Specialty Start Date End Date Isael Fish MD [address] [place] [address] PCP - General Family Medicine 03/14/16 Gary Riley [address] [place] [address] Cardiology 12/24/16 Alfredito Hassan MD [address] [place] [address] Athletics Director Cardiology 06/08/20 Packaging Supervisor Relationship Specialty Start Date End Date Isael Fish MD [address] [place] [place] [address] PCP - General Family Medicine 03/14/16 Gary Rilye [address] [place] [address] Cardiology 12/24/16 Alfredito Hassan MD [address] [place] [address] Athletics Director Cardiology 06/08/20 Packaging Supervisor Relationship Specialty Start Date End Date Isael Fish MD [address] [place] [place] [address] PCP - General Family Medicine 03/14/16 Gary Riley [address] [place] [address] Cardiology 12/24/16 Alfredito Hassan MD [address] [place] [address] Athletics Director Cardiology 06/08/20 Packaging Supervisor Relationship Specialty Start Date End Date Isael Fish MD [address] [place] [address] PCP - General Family Medicine 03/14/16 Gary Riley [address] [place] [address] Cardiology 12/24/16 Alfredito Hassan MD [address] [place] [address] Athletics Director Cardiology 06/08/20 Packaging Supervisor Relationship Specialty Start Date End Date Iasel Fish MD [address] [place] [place] [address] PCP - General Family Medicine 03/14/16 Gary Riley [address] [place] [address] Cardiology 12/24/16 Alfredito Hassan MD [address] [place] [address] Athletics Director Cardiology 06/08/20 Packaging Supervisor Relationship Specialty Start Date End Date Isael Fish MD [address] [place] [address] PCP - General Family Medicine 03/14/16 Gary Riley [address] [place] [address] Cardiology 12/24/16 Alfredito Hassan MD [address] [place] [address] Athletics Director Cardiology 06/08/20 Packaging Supervisor Relationship Specialty Start Date End Date Isael Fish MD [address] [place] [address] PCP - General Family Medicine 03/14/16 Gary Riley [address] [place] [place] [address] Cardiology 12/24/16 Alfredito Hassan MD [address] [place] [address] Athletics Director Cardiology 06/08/20 Packaging Supervisor Relationship Specialty Start Date End Date Isael Fish MD [address] [place] [address] PCP - General Family Medicine 03/14/16 Gary Riley [address] [place] [address] Cardiology 12/24/16 Alfredito Hassan MD [address] [place] [address] Athletics Director Cardiology 06/08/20 Packaging Supervisor Relationship Specialty Start Date End Date Isael Fish MD [address] [place] [address] PCP - General Family Medicine 03/14/16 Gary Riley [address] [place] [address] Cardiology 12/24/16 Alfredito Hassan MD [address] [place] [address] Athletics Director Cardiology 06/08/20 Romi Santana APRN.CNP [address] [place] [address] Equalizing Saw Operator Family Medicine 09/12/24 Bing Ruff PA-C [address] [place] [address] Equalizing Saw Operator Family Medicine 09/12/24 Packaging Supervisor Relationship Specialty Start Date End Date Isael Fish MD [address] [place] [address] PCP - General Family Medicine 03/14/16 Gary Riley [address] [place] [address] Cardiology 12/24/16 Alfredito Hassan MD [address] [place] [address] Athletics Director Cardiology 06/08/20 Romi Santana APRN.PSYCHIATRY PHYSICIAN [address] [place] [address] [facility] Bing Ruff PA-C [address] [place] [address] [facility] 09/12/24 Packaging Supervisor Relationship Specialty Start Date End Date Isael Fish MD [address] [place] [address] PCP - General Family Medicine 03/14/16 Gary Riley [address] [place] [address] Cardiology 12/24/16 Alfredito Hassan MD [address] [place] [address] Athletics Director Cardiology 06/08/20 Romi Santana APRN.PSYCHIATRY PHYSICIAN [address] [place] [address] [facility] 09/12/24 Bing Ruff PA-C [address] [place] [address] [facility] 09/12/24 Packaging Supervisor Relationship Specialty Start Date End Date Isael Fish MD [address] [place] [address] PCP - General Family Medicine 03/14/16 Gary Riley [address] [place] [address] Cardiology 12/24/16 Alfredito Hassan MD [address] [place] [address] Athletics Director Cardiology 06/08/20 Romi Santana APRN.PSYCHIATRY PHYSICIAN [address] [place] [address] Equalizing Saw Operator Family Medicine 09/12/24 Bing Ruff PA-C [address] [place] [address] [facility] 09/12/24 Packaging Supervisor Relationship Specialty Start Date End Date Isael Fish MD [address] [place] [address] PCP - General Family Medicine 03/14/16 Gary Riley [address] [place] [address] Cardiology 12/24/16 Alfredito Hassan MD [address] [place] [address] Athletics Director Cardiology 06/08/20 Romi Santana APRN.PSYCHIATRY PHYSICIAN [address] [place] [address] [facility] 09/12/24 Bing Ruff PA-C [address] [place] [address] [facility] 09/12/24 Packaging Supervisor Relationship Specialty Start Date End Date Isael Fish MD [address] [place] [address] PCP - General Family Medicine 03/14/16 Gary Riley [address] [place] [address] Cardiology 12/24/16 Alfredito Hassan MD [address] [place] [address] Athletics Director Cardiology 06/08/20 Romi Santana, NIEVES.PSYCHIATRY PHYSICIAN [address] [place] [address] Equalizing Saw Operator Family [facility] 09/12/24 Bing Ruff PA-C [address] [place] [address] Equalizing Saw Operator Family [facility] 09/12/24 Packaging Supervisor Relationship Specialty Start Date End Date Isael Fish MD [address] [place] [address] PCP - General Family Medicine 03/14/16 Gary Riley [address] [place] [address] Cardiology 12/24/16 Alfredito Hassan MD [address] [place] [address] Athletics Director Cardiology 06/08/20 Romi Santana, NIGHT FILLER.PSYCHIATRY PHYSICIAN [address] [place] [address] Equalizing Saw Operator Family Medicine 09/12/24 Bing Ruff PA-C [address] [place] [address] Equalizing Saw Operator Family Medicine 09/12/24 Packaging Supervisor Relationship Specialty Start Date End Date Isael Fish MD [address] [place] [address] PCP - General Family Medicine 03/14/16 Gary Riley [address] [place] [address] Cardiology 12/24/16 Alfredito Hassan MD [address] [place] [address] Athletics Director Cardiology 06/08/20 Romi Santana APRN.PSYCHIATRY PHYSICIAN [address] [place] [address] [facility] 09/12/24 Bing Ruff PA-C [address] [place] [address] [facility] 09/12/24 Packaging Supervisor Relationship Specialty Start Date End Date Isael Fish MD [address] [place] [address] PCP - General Family Medicine 03/14/16 Gary Riley [address] [place] [address] Cardiology 12/24/16 Alfredito Hassan MD [address] [place] [address] Athletics Director Cardiology 06/08/20 Romi Santana APRN.PSYCHIATRY PHYSICIAN [address] [place] [address] [facility] 09/12/24 Bing Ruff PA-C [address] [place] [address] [facility] 09/12/24 Goals (unrecognized section and content) Goals may be documented in a n alternate sectionGoals may be documented in an alternate sectionGoals may be documented in an alternate sectionGoals may be documented in an alternate sectionGoals may be documented in an alternate section FOR RECORDS PERTAINING TO PATIENTS WHO ARE OR HAVE BEEN ENROLLED IN A CHEMICAL DEPENDENCY/SUBSTANCEABUSE PROGRAM, SOME INFORMATION MAY BE OMITTED. This clinical summary was aggregated from multiple sources. Caution should be exercised in using it in the provision of clinical care. This summary normalizes information from multiple sources, and as a consequence, information in this document may materially change the coding, format and clinical context of patient data. In addition, data may be omitted in some cases. CLINICAL DECISIONS SHOULD BE BASED ON THE PRIMARY CLINICAL RECORDS. [email or web address] provides no warranty or guarantee of the accuracy or completeness of information in this document.
--- OUTSIDE RECORDS SUMMARY | 2025-04-21 06:54 | XMS RPT_ITS | CCD ---
Author Organization [facility] Care Team Providers Care Functional Architect Name Role Phone SHANNA JARRETT Unavailable Unavailable IMCA Unavailable Unavailable Isael Fish Unavailable Unavailable SHANNA JARRETT (COMMUNICATION ENGINEER) Unavailable Unavailable Isael Fish MD Primary Care [...] Alfredito F Unavailable Mo Alfredito F Unavailable Mo Alfredito F Unavailable Alfredito Hassan MD Unavailable [phone] Isael Fish MD Primary Care Provider Alfredito Hassan MD Unavailable Kleber CARLTON, Isael A Primary Care Provider Gary Riley Unavailable Unavailabl e Mo CARLTON, Alfredito F Unavailable [phone] Mo CARLTON, Alfredito F Unavailable [phone] Mo CARLTON, Alfredito F Unavailable Max GROVESN.ALANNAH, Romi Unavailable Bing Ruff PA-C Unavailable KLEBER, ISAEL A Primary Care Unavailable ELDER [...] source) Adhesive Tape Substance Allergy 6 Unknown [facility] Aminoketones (1 source) buPROPion Drug Allergy 6 Other: See Comments [facility] Angiotensin Converting Enzyme (RODOLFO) Inhibitors (1 source) Lisinopril Drug Allergy 4 Swelling [facility] busPIRone (1 source) busPIRone Drug Allergy 7 Other: See Comments [facility] Corticosteroids (1 source) predniSONE Drug Allergy 5 Other: See Comments [facility] fexofenadine (1 source) fexofenadine Drug Allergy 9 Hives [facility] Work Phone: Lidocaine (1 source) Lidocaine Drug Allergy 6 Rash, Hives [facility] Opioid Agonists (2 sources) Codeine Drug Allergy 2 Intolerance, GI Upset, Vomiting [facility] QUEtiapine (1 source) QUEtiapine Drug Allergy 4 Other: See Comments [facility] Serotonin Reuptake Inhibitors (SSRIs) (3 sources) PARoxetine Drug Allergy 6 Other: See Comments [facility] (20 sources) Adhesive Tape; Translations: [ADHESIVE TAPE (ROSINS)] Propensity to adverse reactions (disorder) 6 Unknown [facility] Repository (20 sources) buPROPion; Translations: [BUPROPION HCL] Drug Allergy 6 Other: See Comments [facility] Repository (20 sources) busPIRone; Translations: [BUSPIRONE HCL] Drug Allergy 7 Other: See Comments [facility] Repository (20 sources) codeine; Translations: [CODEINE] Drug Allergy 2 Intolerance, GI Upset [facility] Repository (20 sources) FLUoxetine; Translations: [FLUOXETINE HCL] Drug Allergy 6 Other: See Comments [facility] Repository (20 sources) lidocaine; Translations: [LIDOCAINE] Drug Allergy 6 Rash, Hives [facility] Repository (20 sources) lisinopril; Translations: [LISINOPRIL] Drug Allergy 4 Swelling [facility] Repository (20 sources) morphine; Translations: [MORPHINE] Drug Allergy 4 Vomiting [facility] Repository (20 sources) PARoxetine; Translations: [PAROXETINE HCL] Drug Allergy 6 Other: See Comments [facility] Repository (20 sources) predniSONE; Translations: [PREDNISONE] Drug Allergy 5 Other: See Comments [facility] Repository (20 sources) sertraline; Translations: [SERTRALINE HCL] Drug Allergy 6 Other: See Comments [facility] Repository (20 sources) fexofenadine; Translations: [FEXOFENADINE] Drug Allergy 9 Hives [facility] Work Phone: (6 sources) Adhesive Tape; Translations: [adhesive tape] Propensity to adverse reactions 2 Unknown [facility] Repository (5 sources) buPROPion Drug Allergy 2 made depression worse [facility] Work Phone: (5 sources) FLUoxetine Drug Allergy 2 made depression worse [facility] Work Phone: (5 sources) PARoxetine Drug Allergy 2 made depression worse [facility] Work Phone: (5 sources) Sertraline Drug Allergy 2 made depression worse [facility] Work Phone: (20 sources) QUEtiapine; Translations: [QUETIAPINE] Drug Allergy 4 Other: See Comments [facility] (1 source) buPROPion Drug Allergy 5 [facility] (1 source) FLUoxetine Drug Allergy 5 [facility] (1 source) PARoxetine Drug Allergy 5 [facility] (1 source) Sertraline Drug Allergy 5 [facility] Repository Medications Current Medications Medication Drug Class(es) [...] capsule by mouth two times a day. [email or web address] 180 capsule 3 01/05/2025 Active Start: 11-21-2022 End: 12-30-2024 take 1 capsule by mouth twice daily dimethyl fumarate (TECFIDERA) [address] Take 1 capsule (240 mg) by mouth two times a day. 180 capsule 3 01/24/2024 12/30/2024 Discontinued Start: 10-18-2022 take 1 capsule by mo [facility] twice daily dimethyl fumarate (TECFIDERA) 240 mg [...] TWICE DAILY Take 1 capsule by mo [facility] twice daily. Take 1 capsule (240 mg) [...] EACH PO DAILY March 03, 2020 12:00am Swink 7-Smu-Mxe-Fish Oil (5 sources) Start: 10-13-2020 take 500 mg by mouth once daily Swink 4-Ity-Kvo-Fish Oil Active 500 MG PO DAILY October 13, 2020 2:55pm Start: 10-13-2020 take 500 mg by mouth once daily Swink 7-Kin-Ckj-Fish Oil Active 500 MG PO DAILY October 13, 2020 12:00am Start: 10-13-2020 take 500 mg by mouth once daily [place]ink 4-Zgy-Uyv-Fish Oil Active 500 MG PO DAILY October 13, 2020 1:00am omega-3 fatty acids 1,000 mg cap (20 sources) take 1 capsule by mo [facility] once daily omega-3 fatty acids 1,000 mg [...] Comment on above: Take 1 tablet by [facility] daily before breakfast. 1/2 hr before meal. Take 1 capsule by [facility] twice daily. Take 1 capsule by [facility] two times a day. pregabalin 50 [...] Comment on above: Take 1 capsule by [facility] twice daily for 90 days. Take 1 capsule by [facility] twice daily for 30 days. Take 1 capsule by [facility] two times a day for 30 days. Take 1 capsule by [facility] two times a day for 180 days. 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 Isael Fish MD Status: REG CLI Study: SCRN MAMM (CAD)W/JOSIANE BILAT Date of Exam: 03/08 12/29 Exam# [id number] Ordering Dr: Isael Fish MD EXAM: SCRN [...] be mailed to the patient. Reading Location: [id number] CC: Dr. Isael Fish MD Rubber Mixer: Signed [facility] CNDIETERon 02-12-2025 CNOV Office Visit ([facility] ) ROMI RODRIGEZ ([id number]) 1985 F Date Time Provider Department 02/12/25 11:15 AM ELDER CHAO During your visit today, we recorded the following information about you: Pulse Blood pressure Weight Height 69/minute 103/72 119.7 kg 1.778 m Elder Chao PA-C 02/12/2025 1:45 PM Signed 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 - couldn't squeeze a [place] correctly the other day SUBJECTIVE AND REVIEW OF SYSTEMS: Neuro-QoL Functions (higher=better functioning) Flowsheet Row [facility] from 12/29/2019 in [facility] Office Visit from 04/25/2018 in [facility] Office Visit from 08/14/2017 in [facility] Upper Extremity Domain T Score 50 56.84 [...] Flowsheet Row [facility] from 12/29/2019 in [facility] Office Visit from 04/25/2018 in [facility] Office Visit from 08/14/2017 in [facility] Sleep Domain T Score 60 55.63 54.3 Fatigue Domain T Score 64 64.84 52.3 Anxiety Domain T Score 72 64.58 65.23 Depression Domain T Score 55 50.36 47.97 Stigma Domain T Score 51 50.07 48.56 Emotional Behavior Dyscontrol T Score -- 50.82 47.39 *NeuroQoL is a multi-domain patient-reported quality of life questionnaire. PHQ-9 Flowsheet Row Office Visit from 03/18/2024 in [facility] Office Visit from 03/06/2023 in [facility] PHQ-9 Score 3 7 *PHQ-9 is a questionnaire for depressive symptoms, with scores 0-4 indicating none, 5-9 mild, 10-14 moderate, 15-19 moderately severe, and 20-27 severe symptoms. PROMIS-10 Flowsheet Row Office Visit from 11/21/2024 in [facility] Appointment from 11/18/2024 in [facility] Global Physical Health T Score 47.7 47.7 [...] Chronic systoli (more content not included)... Normal [facility] Cardiology Visit Reporton Cardiology Visit Report [facility] [address] [place] [address] OFFICE VISIT Date of Service: 01/21/25 MR#: [id number] Acct: [id number] Name: ROMI RODRIGEZ Rep #: [id number] : 1985 Provider: Dr. Kaushal Butt MD Age/Sex: 39/F Location: [facility] Status: Signed HPI HPI History of Present [...] Monitor Intake Visit Reasons: 1 Y FU Master Data Analyst Required: No Accompanied by: Self Is patient [...] surgery History (more content not included)... Normal [facility] MR/BMS.BPon 01-18-2025 MR/BMS.BP [facility] [address], [address] [place] [address] OFFICE VISIT Date of Service: 01/18/25 MR#: [id number] Acct: [id number] Name: ROMI RODRIGEZ Rep #: [id number] : 1985 Provider: Dr. Sahil Deleon se, DO Age/Sex: 39/F Location: [facility] Status: Signed Intake Vital Signs 07/22/24 15:47 [...] (Verified 11/04/24 16:18) heart racing, [facility] History Cellulitis of right knee ELAINE [...] on . Recently took a trip to [facility] to visit a [employer] site which she states gave her a [...] and klono (more content not included)... 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 Ho is a 39 year old who [...] pap: Yes, 2017 [facility], HPV positive 01/2018 [facility] benign Last mammogram: 03/2024 normal [facility] Abnormal mammogram: fibroadenoma of right breast 2012 [...] Living0 SAB0 IAB0 Ectopic0 Multiple0 Live Births0 [employer] History LMP: 11/01/2024 (Approximate), Having periods Age at Menarche: 9 Age at First : Age at Menopause: [employer] History Comments: Sexual Activity: Yes; Male Contraception: [...] her teen's Mixed hyperlipidemia 03/14/2016 Multiple sclerosis ([facility]) 12/16/[address] Downing-Santos Neuro Muscle spasm 12/16/2019 Related to MS. On Clonopin Obesity, Class II, BMI 35-39.9 08/15/2022 Obesity, Class III, BMI 40-49.9 (morbid obesity) ([facility]) 08/15/2022 PCOS (polycystic ovarian syndrome) 03/14/2016 PMH - PAST MEDICAL HISTORY OF radioactive iiodine Postprocedural hypothyroidism 04/23/2003 Seasonal allergies 07/26/2021 Takotsubo cardiomyopathy 03/14/[address] Trevino PAST SURGICAL HISTORY Procedure Laterality Date 2D ECHO (EXEP) 06/21/2020 EF=40%, mild syst dysf 2D ECHO (EXEP) 04/12/2021 EF=45%, mild syst dysf, trival AR, TI 2D ECHO (EXEP) 08/08/2021 EF=45%, no significant valve disease ANKLE ARTHROSCOPY/SURGERY Right ECHO LVEF 37% ECHOCARDIOGRAM 05/29/2017 LEXISCAN STRESS TEST 06/21/2020 EF=41% , changes consistent with previous AR, no new reversible ischemic areas. PAST SURGICAL [...] Mother 65 Coronary Artery Disease Father from [place] age 60 other (Sudden ) Father other [...] skin changes (more content not included)... Normal [facility] CNOVon 11-21-2024 CNOV Office Visit (FAMPWS ) ROMI RODRIGEZ ([id number]) 1985 F Date Time Provider Department 11/21/24 [...] a z-eddie since she was going to [facility]. Patient has been having [...] Obesity, Class III, BMI 40-49.9 (morbid obesity) ([facility]) 08/15/2022 PCOS (polycystic ovarian syndrome) 03/14/2016 PMH - PAST MEDICAL HISTORY OF radioactive iiodine Postprocedural hypothyroidism 04/23/2003 Seasonal allergies 07/26/2021 Takotsubo cardiomyopathy 03/14/[address] Trevino Previous Surgical History PAST SURGICAL HISTORY Procedure Laterality Date 2D ECHO (EXEP) 06/21/2020 EF=40%, mild syst dysf 2D ECHO (EXEP) 04/12/2021 EF=45%, mild syst dysf, trival AR, TI 2D ECHO (EXEP) 08/08/2021 EF=45%, no significant valve disease ANKLE ARTHROSCOPY/SURGERY Right ECHO LVEF 37% ECHOCARDIOGRAM 05/29/2017 LEXISCAN STRESS TEST 06/21/2020 EF=41% , changes consistent with previous AR, no new reversible ischemic areas. PAST SURGICAL [...] Mother 65 Coronary Artery Disease Father from [place] age 60 other (Sudden ) Father other [...] Zoloft [Sertralin (more content not included)... Normal [facility] Lipid Profileon 11-04-2024 Cholesterol [Mass/Vol] 181 mg/dL Normal 200 [facility] Comment on above: Result Comment: <200 mg/dL Desirable 200-240 mg/dL Borderline >240 mg/dL High Risk Performed By: #### L 500.4100, L501.9520 #### [facility] [address] [place], [address] Cholesterol in HDL [Mass/Vol] 69 mg/dL Normal [facility] Comment on above: Result Comment: The drugs N-Acetylcysteine and Metamizole may falsely depress this assay. Reference Range HDL <40 mg/dL Low HDL Cholesterol HDL >or= 60 mg/dL High HDL Cholesterol Performed By: #### L 500.4100, L5.9520 #### [facility] [address] [place], [address] Cholesterol in LDL [Mass/Vol] 82 mg/dL Normal 0-130 [facility] Comment on above: Performed By: #### L 500.4100, L501.9520 #### [facility] [address] [place], [address] Cholesterol in VLDL [Mass/Vol] 30 mg/dL Normal 5-40 [facility] Comment on above: Performed By: #### L 500.4100, L501.9520 #### [facility] [address] [place], [address] Triglyceride [Mass/Vol] 152 mg/dL Normal [facility] Comment on above: Result Comment: The drugs N-Acetylcysteine and Metamizole may falsely depress this assay. Serum Triglycerides Reference Interval Normal <150 mg/dL Borderline high 150 - 199 mg/dL High 200 - 499 mg/dL Very High > or = 500 mg/dL Performed By: #### L 500.4100, L501.9520 #### [facility] [address] [place], [address] Office Visit Reporton 2024 Office Visit Report [facility] [address] [place] [address] OFFICE VISIT Date of Service: 11/04/24 MR#: [id number] Acct: [id number] Patient: ROMI RODRIGEZ Rep #: [id number] : 1985 Provider: BRY Ellison Age/Sex: 39/F Location: [facility] Status: Signed Employer Purchased Covid Test Note: Patient here today for Covid Testing, requested by their Employer. Assessment and Plan Assessment and Plan Orders: Orders POC Cepheid Covid, FluAB, RSV Today 11/16/24 0645 Date Sahil Narvaezignsherrie Signature: Date (if applicable) CC: Normal [facility] Thyroid Stim Hormone (TSH)on 11-04-2024 TSH 0.952 uIU/mL Normal 0.358-3.740 [facility] Comment on above: Performed By: #### L 500.4100, L501.9520 #### [facility] [address] [place], [address] Urgent Care Visit Reporton 0 11-04-2024 Urgent Care Visit Report [facility] [address], [address] [place] [address] OFFICE VISIT Date of Service: 11/04/24 MR#: [id number] Acct: [id number] Name: ROMI RODRIGEZ Rep #: [id number] : 1985 Provider: BRY Ellison Age/Sex: 39/F Location: [facility] Status: Signed Intake Vital Signs 07/22/24 15:47 [...] Complaint: cough, ST, chest/nasal congest, right ear Master Data Analyst Required: No Is patient in pain?: Yes [...] ST, chest/nasal congest, right ear Details: ROMI RODRIGEZ, is a 39 F who presents to [...] Effort Inspection: (more content not included)... Normal [facility] Gail 09-01-2024 [facility] Telephone ([facility]) RODRIGEZROMI AGUIRRE ([id number]) 1985 F Date Time Provider Department 09/01/24 [...] for screening (more content not included)... Normal [facility] MR/BMS.BPon 07-22-2024 MR/BMS.BP [address], [address] [place] [id number] OFFICE VISIT Date of Service: 07/22/24 MR#: [id number] Acct: [id number] Name: ROMI RODRIGEZ Rep #: [id number] : 1985 Provider: Dr. Sahil Deleon se, [...] that she (more content not included)... Normal [facility] Urgent Care Visit Reporton 0 06-22-2024 Urgent Care Visit Report [facility] [address], [address] [place] [address] OFFICE VISIT Date of Service: 06/22/24 MR#: [id number] Acct: [id number] Name: ROMI RODRIGEZ Rep #: [id number] : 1985 Provider: BRY Ellison Age/Sex: 38/F Location: [facility] Status: Signed Intake Vital Signs 04/30/24 15:02 [...] No complaints of fever, chills, sweats. No kike-mhy-ffbnvmb products taken to assist, except the application [...] Patient stat (more content not included)... Normal [facility] L/S Spine Min 4 Viewson 04-07-2023 L/S Spine Min 4 Views [facility] Imaging Services [address] [place] [address] L/S Spine Min 4 Views MR#: [id number] Acct: [id number] Name: ROMI RODRIGEZ Rep #: [id number] : 1985 F 38 From: Surendra Márquez MD PCP: Dr. Isael Fish MD Status: REG CLI Study: L/S Spine Min 4 Views Date of Exam: 04/30/24 Exam# [id number] Ordering Dr: [place] [id number] STUDY: X-RAY - LUMBAR SPINE REASON FOR [...] Claus Montero MD; Dr. Isael Fish MD Rubber Mixer: Signed Normal [facility] Orthopedic Visit Reporton Orthopedic Visit Report [facility] [address] [place] [address] OFFICE VISIT Date of Service: 04/30/24 MR#: [id number] Acct: [id number] Name: ROMI RODRIGEZ Rep #: [id number] : 1985 Provider: Dr. Claus Montero MD Age/Sex: 38/F Location: [facility] Status: Signed Intake Vital Signs 01/23/24 16:17 [...] SPINE Details: Th (more content not included)... [facility]21[facility]2024 [facility] ROMI RODRIGEZ ([id number]) 1985 F Date Time Provider Department 04/21/24 ISAEL FISH [facility] During your visit today, we recorded the following information about you: Marina Davila LPN 04/21/2024 11:43 AM Signed Received results of pt's EMG/NCS ordered by pcp. See below. Marina Davila LPN Scan on 04/21/2024 10:16 AM by Provider, VITALIY Vela: Neurology Iseal Fish MD 04/21/2024 4:29 PM Signed Let patient know the nerve studies shows: So some of this may be from her back or a compression of the nerves in the anterior thigh area. Options are: 1) discuss with her neurologist and we can provider her a copy of the report. 2) see a pain management provider 3) see a vessel specialist ( not sure who did her surgery) Evelina Peter MA 04/22/2024 9:54 AM Addendum Patient notified and voiced understanding. Evelina Peter MA Patient does feel it is coming from her back. Her Surgeon was Dr. Jose MARTIN. She also has an appointment with Dr. Montero at [facility]. HUNTER Yarbrough Jeffrey A, MD 04/22/2024 1:02 PM Signed Please fax EMG reports to DR. Montero at [place] and let patient know we did this. [...] ovarian syndr (more content not included)... Normal [facility] NCS and/or EMG Patienton NCS and/or EMG Patient [facility] [address] [place] [address] MR#: [id number] Acct: [id number] Name: ROMI RODRIGEZ Rep #: [id number] : 1985 38 From: Brannon Andrade MD [...] Multi Select Codes Neurology Neurology Interp Codes: 32387-19 Musc test done w/n test comp (interp) (2) and 42068-38 Nrv cndj test 9-10 studies (interp) 04/21/24 1012 Date Brannon Andrade MD CC: Dr. Brannon Andrade MD; Dr. Isael Fish MD Date Dictated: 04/21/24910 Date Transcribed: 04/21/24910 Rubber Mixer: Signed [facility] 03-26-2024 [facility] Telephone (FAMPWS) ROMI RODRIGEZ ([id number]) 1985 F Date Time Provider Department 03/26/24 [...] (HCC) [I42.9] more content not included)... Normal [facility]ail 03-24-2024 [facility] Telephone (FAMPWS) ROMI RODRIGEZ ([id number]) 1985 F Date Time Provider Department 03/24/24 ISAEL FISH During your visit today, we recorded the following information about you: Marina Davila LPN 03/24/2024 1:59 PM Signed Received labs results from [facility] ordered by pcp. Marina Davila LPN Scan [...] for screeni (more content not included)... Normal [facility] CNOVon 03-18-2024 CNOV Office Visit (FAMPWS ) ROMI RODRIGEZ ([id number]) 1985 F Date Time Provider Department 03/18/24 [...] Obesity, Class III, BMI 40-49.9 (morbid obesity) ([facility]) 08/15/2022 PCOS (polycystic ovarian syndrome) 03/14/2016 PMH - PAST MEDICAL HISTORY OF radioactive iiodine Postprocedural hypothyroidism 04/23/2003 Seasonal allergies 07/26/2021 Takotsubo cardiomyopathy 03/14/[address] Trevino Previous Surgical History PAST SURGICAL HISTORY Procedure Laterality Date 2D ECHO (EXEP) 06/21/2020 EF=40%, mild syst dysf 2D ECHO (EXEP) 04/12/2021 EF=45%, mild syst dysf, trival AR, TI 2D ECHO (EXEP) 08/08/2021 EF=45%, no significant valve disease ANKLE ARTHROSCOPY/SURGERY Right ECHO LVEF 37% ECHOCARDIOGRAM 05/29/2017 LEXISCAN STRESS TEST 06/21/2020 EF=41% , changes consistent with previous AR, no new reversible ischemic areas. PAST SURGICAL [...] Mother 65 Coronary Artery Disease Father from [place] age 60 other (Sudden ) Father other [...] clonazePAM ( (more content not included)... Normal [facility] FERRITIN BLDon 08-30-2023 Ferritin [Mass/Vol] 42 ng/mL 8 - 252 [facility] INSULIN, FREEon 08-30-2023 Insulin 13 2.6 - 37.6 [facility] IRON PANEL (OUTSIDE)on 08-30 Iron % Saturation 29.2 15 - 55 [facility] Iron [Mass/Vol] 119 ug/dL 50 - 170 [facility] TIBC 408 250 - 450 [facility] LIPID PANEL (EXTERNAL)on HDC-L 70 mg/dL Abnormal 41 mg/dL [facility] LDL Chol, calculated 97 MG/DL 130 MG/DL [facility] VLDL 47 Ratio Abnormal 5 - 40 Ratio [facility] [facility] LIPID PANEL (OUTSIDE)on 08-08 Cholesterol in HDL [Mass/Vol] 70 mg/dL 50 [facility] Cholesterol in LDL [Mass/Vol] 97 mg/dL 130 [facility] LDL:HDL Ratio [facility] Non-HDL Cholesterol [facility] TC:HDL Ratio [facility] VLDL Cholesterol [facility] Laboratory - Chemistry and C hemistry - challengeon 08-30-2023 Cholesterol [Mass/Vol] 214 mg/dL Abnormal 200 [facility] Triglyceride [Mass/Vol] 236 mg/dL Abnormal 150 [facility] Laboratory - Hematology and Cell countson 08-30-2023 HbA1c (Bld) [Mass fraction] 5.1 % 0 - 5.7 % [facility] TSH (EXTERNAL)on 08-30-2023 TSH 11.00 IU/ml Abnormal 0.358 - 3.74 IU/ml [facility] TSH 11.0 IU/ml Abnormal 0.358 - 3.72 IU/ml [facility] CBC W/DIFF/PLT (EXTERNAL LAB NIKUNJ)on 02-22-2023 BASO ABSOLUTE [facility] Basophils/100 WBC (Bld) 0.5 % [facility] EOS ABSOLUTE [facility] Eosinophils/100 WBC (Bld) 2.3 % [facility] Erythrocyte distribution width (RBC) [Ratio] 12.8 % 12.3 - 15.4 % [facility] Hematocrit (Bld) [Volume fraction] 37 % Abnormal 37.5 - 51.0 % [facility] Hemoglobin (Bld) [Mass/Vol] 12.8 g/dL 12.6 - 17.7 g/dL [facility] Immature Gran % [facility] IMMATURE GRANS ABSOLUTE [facility] Lymphocytes (Bld) [#/Vol] 1.12 10*3/uL 0.7 - 3.1 k/uL [facility] Lymphocytes/100 WBC (Bld) 26.0 % [facility] MCH 29.8 Pg 26.6 - 33 Pg [facility] MCHC (RBC) [Mass/Vol] 34.6 g/dL 31.5 - 35.7 g/dL [facility] MCV (RBC) [Entitic vol] 86.2 fL 79 - 97 fL [facility] MONOCYTES ABSOLUTE [facility] Monocytes/100 WBC (Bld) 8.6 % [facility] NEUTROPHILS ABSOLUTE 2.7 k/uL 1.4 - 7 .0 k/uL [facility] Neutrophils/100 WBC (Bld) 62.4 % [facility] Platelets (Bld) [#/Vol] 267 10*3/uL 150 - 379 k/uL [facility] RBC (Bld) [#/Vol] 4.29 10*6/uL 4.14 - 5.8 0 M/uL [facility] WBC (Bld) [#/Vol] 4.3 10*3/uL 3.4 - 10.8 K/uL [facility] CMP (EXTERNAL)on 02-22-2023 Albumin [Mass/Vol] 3.4 g/dL 3.2 - 4.6 gm/dL [facility] Alk Phos Total 56 U/L 45 - 117 U/L [facility] ALT [Catalytic activity/Vol] 23 U/L 12 - 78 U/L [facility] AST [Catalytic activity/Vol] 17 U/L 8 - 37 U/L [facility] Bili Total 0.3 mg/dL 0.2 - 1 mg/dL [facility] Calcium [Mass/Vol] 8.9 mg/dL 8.5 - 10. 1 mg/dL [facility] Chloride [Moles/Vol] 105 mmol/L 98 - 10 7 MEQ/L [facility] CO2 [Moles/Vol] 25 mmol/L 21 - 32 MEQ/L [facility] Creatinine [Mass/Vol] 0.65 mg/dL 0.6 - 1.3 MG/DL [facility] GFR AFR AMER 131 mL/MIN [facility] GFR/1.73 sq M.predicted among non-blacks MDRD (S/P/Bld) [Vol rate/Area] 108 mL/min/{1.73_m2} [facility] Glucose [Mass/Vol] 95 mg/dL 74 - 106 MG/DL [facility] Phosphate (Bld) [Moles/Vol] 3.7 2.5 - 4.9 [facility] Potassium [Moles/Vol] 4.2 mmol/L 3.5 - 5.1 mmol/L [facility] Protein [Mass/Vol] 7.6 g/dL 6.4 - 8.2 gm/dL [facility] Sodium [Moles/Vol] 137 mmol/L 136 - 145 mmol/L [facility] Urea nitrogen [Mass/Vol] 13 mg/dL 7 - 18 MG/DL [facility] HEMOGLOBIN A1C (EXTERNAL)on 02-22-2023 HbA1c (Bld) [Mass fraction] 4.8 % 0 - 5.7 % [facility] LIPID PANEL (OUTSIDE)on 02-04 Cholesterol [Mass/Vol] 191 mg/dL 200 [facility] Cholesterol in HDL [Mass/Vol] 76 mg/dL 50 [facility] Cholesterol in LDL [Mass/Vol] 147 mg/dL Abnormal 92 [facility] LDL:HDL Ratio [facility] Non-HDL Cholesterol [facility] TC:HDL Ratio [facility] Triglyceride [Mass/Vol] 116 mg/dL 150 [facility] VLDL Cholesterol [facility] Magnesium [Mass/Vol]on 02-22 Magnesium.plasma/Magn esium.RBC (Bld) [Molar ratio] 2.1 1.6 - 2.6 [facility] TSH (EXTERNAL)on 02-22-2023 TSH Qn 0.69 m[IU]/L 0.358 - 3.74 IU/ml [facility] VITAMIN B12 BLOODon 02-23-20 Cobalamin (Vitamin B12) [Mass/Vol] 518 pg/mL 211 - 911 [facility] Absolute lymphocyte counton 09-21-2022 Lymphocytes Auto (Unsp spec) [#/Vol] 1.52 10*3/uL 0.83-4.51 [facility] Work Phone: Basophil percentageon 2021 Basophils/100 WBC (Bld) 0.2 % 0-1 [facility] Work Phone: Chloride [Moles/Vol] 103 mmol/L 98-107 [facility] Work Phone: Eosinophils/100 WBC (Bld) 2.5 % 0-5 [facility] Work Phone: Glucose [Mass/Vol] 92 mg/dL 74-106 [facility] Work Phone: [phone] Neutrophils (Bld) [#/Vol] 2.7 10*3/uL 2.0-7.7 [facility] Work Phone: Neutrophils/100 WBC (Bld) 55.7 % 47-70 [facility] Work Phone: [phone] Potassium [Moles/Vol] 3.8 mmol/L 3.5-5.1 [facility] Work [facility]: [phone] Sodium [Moles/Vol] 136 mmol/L 136-145 [facility] Work Phone: [phone] WBC (Bld) [#/Vol] 4.9 10*3/uL 4.4-11.0 [facility] Work Phone: [phone] Blood erythrocytes count (nu mber/volume)on 09-21-2022 RBC (Bld) [#/Vol] 4.74 10*6/uL 4.2-5.4 [facility] Work Phone: Blood hemoglobin measurement (mass/volume)on 09-21-2022 Hemoglobin (Bld) [Mass/Vol] 13.6 g/dL 12.0-15.0 [facility] Work Phone: Blood lymphocytes/100 leukoc yteson 09-21-2022 Lymphocytes/100 WBC (Bld) 31.3 % 19-41 [facility] Work Phone: Blood monocytes/100 leukocyt eson 09-21-2022 Monocytes/100 WBC (Bld) 10.1 % 0-10 [facility] Work Phone: Blood platelet mean volumeon 09-21-2022 Platelet mean volume (Bld) [Entitic vol] 9.6 fL 6.2-12.0 [facility] Work Phone: Determination of erythrocyte mean corpuscular volume (MCV)on 09-21-2022 MCV (RBC) [Entitic vol] 85.7 fL 81-99 [facility] Work Phone: Hematocrit Auto (Bld) [Volum e fraction]on 09-21-2022 Hematocrit (Bld) [Volume fraction] 40.6 % 37-47 [facility] Work Phone: Laboratory - Chemistry and C hemistry - challengeon 09-21-2022 CO2 [Moles/Vol] 27.0 mmol/L 21.0-32.0 [facility] Work Phone: Urea nitrogen/Creatinine [Mass ratio] 23.3 mg/mg 10-20 [facility] Work Phone: Laboratory - Hematology and Cell countson 09-21-2022 Erythrocyte distribution width (RBC) [Entitic vol] 40.1 fL 35.1-43.9 [facility] Work Phone: Erythrocyte distribution width (RBC) [Ratio] 12.9 % 11.6-14.6 [facility] Work Phone: Immature granulocytes/100 WBC (Bld) 0.200 % 0.0-0.9 [facility] Work Phone: Comment on above: IG% - Immature Granu locytes (promyelocytes, myelocytes and metamyelocytes) > 1% indicates that a LEFT SHIFT is Present. MCH (RBC) [Entitic mass] 28.7 pg 27.0-32.0 [facility] Work Phone: Nucleated RBC/100 WBC (Bld) [Ratio] 0 % 0-5 [facility] Work Phone: MCHC Auto (RBC) [Mass/Vol]on 09-21-2022 MCHC (RBC) [Mass/Vol] 33.5 g/dL 32-36 [facility] Work Phone: No Panel Informationon 09-21 Estimated Creatinine Clearance Calc 123.33 ml/min [facility] Work Phone: Estimated GFR (MDRD) Amer 132 mL/min >60 [facility] Work Phone: Comment on above: GFR Calc Estimated GFR (MDRD) Non-Af Amer 109 mL/min >60 [facility] Work Phone: Comment on above: Non- GFR Calc Troponin I High Sensitivity 4 pg/mL 3.0-54.0 [facility] Work Phone: Comment on above: Please Note: New [place] t Units and Gender Specific Reference Ranges. For more information see Policy Stat Procedure [place] High Sensitivity Troponin (TNIH) and attachments. Platelets bldon 09-21-2022 Platelets (Bld) [#/Vol] 287 10*3/uL 150-450 [facility] Work Phone: Serum or plasma calcium abdullahi urement (mass/volume)on 09-21-2022 Calcium [Mass/Vol] 9.3 mg/dL 8.5-10.1 [facility] Work Phone: Serum or plasma creatinine m easurement (mass/volume)on 09-21-2022 Creatinine [Mass/Vol] 0.64 mg/dL 0.55-1.02 [facility] Work Phone: Comment on above: The validity of the calculated GFR & GFRAA in patients over 70 years has not been determined. Clinical correlation is essential. Serum or plasma urea nitroge n measurement (mass/volume)on 09-21-2022 Urea nitrogen [Mass/Vol] 15 mg/dL 7-18 [facility] Work Phone: Thin prep Papanicolaou smear with manual screeningon 09-21-2022 Thin prep Papanicolaou smear with manual screening 6 5-15 [facility] Work Phone: Absolute lymphocyte counton 08-14-2022 Lymphocytes Auto (Unsp spec) [#/Vol] 1.26 10*3/uL 0.83-4.51 [facility] Work Phone: Absolute reticulocyte counto n 08-14-2022 Reticulocytes (Bld) [#/Vol] 0.00 10*3/uL 0-5 [facility] Work Phone: BMP - EXTERNALon 08-14-2022 ANION GAP [facility] BICARBONATE [facility] GFR AFR AMER 131 mL/MIN [facility] Urea Nitrogen [facility] Basophil percentageon 2021 Amylase [Catalytic activity/Vol] 73 U/L 25-115 [facility] Work Phone: Basophil percentage 3.5 mg/dL 2.5-4.9 [facility] Work Phone: Bilirubin [Mass/Vol] 0.50 mg/dL 0.20-1.00 [facility] Work Phone: Comment on above: For patients on eltr ombopag therapy, use of Dimension [place] TBIL is not recommended. Bilirubin [Mass/Vol] 0.30 mg/dL 0.20-1.00 [facility] Work Phone: Comment on above: For patients on eltr ombopag therapy, use of Dimension [place] TBIL is not recommended. Chloride [Moles/Vol] 101 mmol/L 98-107 [facility] Cholesterol [Mass/Vol] 232 mg/dL <200 [facility] Comment on above: <200 mg/dL Desirable 200-240 mg/dL Borderline >240 mg/dL High Risk Glucose [Mass/Vol] 86 mg/dL 74-106 [facility] Neutrophils (Bld) [#/Vol] 3.2 10*3/uL 2.0-7.7 [facility] Work Phone: Potassium [Moles/Vol] 4.0 mmol/L 3.5-5.1 [facility] Protein [Mass/Vol] 8.3 g/dL 6.4-8.2 [facility] Protein [Mass/Vol] 8.4 g/dL 6.4-8.2 [facility] Work Phone: Sodium [Moles/Vol] 137 mmol/L 136-145 [facility] Triglyceride [Mass/Vol] 106 mg/dL <199 [facility] Comment on above: The drugs N-Acetylcy steine and Metamizole may falsely depress this assay.Serum Triglycerides Reference Interval Normal <150 mg/dL Borderline high 150 - 199 mg/dL High 200 - 499 mg/dL Very High > or = 500 mg/dL WBC (Bld) [#/Vol] 5.0 10*3/uL 4.4-11.0 [facility] Work Phone: Blood erythrocytes count (nu mber/volume)on 08-14-2022 RBC (Bld) [#/Vol] 4.60 10*6/uL 4.2-5.4 [facility] Work Phone: Blood hemoglobin measurement (mass/volume)on 08-14-2022 Hemoglobin (Bld) [Mass/Vol] 13.3 g/dL 12.0-15.0 [facility] Work Phone: Blood platelet mean volumeon 08-14-2022 Platelet mean volume (Bld) [Entitic vol] 10.3 fL 6.2-12.0 [facility] Work Phone: CMP (EXTERNAL)on 08-14-2022 Alk Phos Total 55 U/L 45 - 117 U/L [facility] AST [Catalytic activity/Vol] 18 U/L 8 - 37 U/L [facility] Bili Total 0.3 mg/dL 0.2 - 1 mg/dL [facility] Direct Bilirubin 0.1 0.0 - 0.3 [facility] GFR AFR AMER [facility] Phosphate (Bld) [Moles/Vol] 3.5 2.5 - 4.9 [facility] Determination of erythrocyte mean corpuscular volume (MCV)on 08-14-2022 MCV (RBC) [Entitic vol] 87.4 fL 81-99 [facility] Work Phone: Direct bilirubinon 2 Bilirubin.direct [Mass/Vol] 0.11 mg/dL 0.00-0.30 [facility] Work Phone: Bilirubin.direct [Mass/Vol] 0.10 mg/dL 0.00-0.30 [facility] Work Phone: Hematocrit Auto (Bld) [Volum e fraction]on 08-14-2022 Hematocrit (Bld) [Volume fraction] 40.2 % 37-47 [facility] Work Phone: LDH PLASMAon 08-14-2022 LDH 164 84 - 246 [facility] LIPID PANEL (OUTSIDE)on LDL:HDL Ratio [facility] Non-HDL Cholesterol [facility] TC:HDL Ratio [facility] VLDL Cholesterol [facility] Laboratory - Chemistry and C hemistry - challengeon 08-14-2022 ALP [Catalytic activity/Vol] 55 U/L 45-117 [facility] Work Phone: ALT [Catalytic activity/Vol] 24 U/L 13-56 [facility] Cholesterol.total/Cho lesterol in HDL [Mass ratio] 2.40 {ratio} [facility] Work Phone: CO2 [Moles/Vol] 27.0 mmol/L 21.0-32.0 [facility] Globulin (S) [Mass/Vol] 4.4 g/dL 2.2-4.2 [facility] Work Phone: Lipase [Catalytic activity/Vol] 136 U/L 73-393 [facility] Work Phone: Urate [Mass/Vol] 3.7 mg/dL 2.6-6.0 [facility] Comment on above: The drugs N-Acetylcy steine and Metamizole may falsely depress this assay. Urea nitrogen/Creatinine [Mass ratio] 20.0 mg/mg 10-20 [facility] Work Phone: GFR/1.73 sq M.predicted among non-blacks MDRD (S/P/Bld) [Vol rate/Area] 108 mL/min/{1.73_m2} [facility] Laboratory - Hematology and Cell countson 08-14-2022 Erythrocyte distribution width (RBC) [Entitic vol] 40.4 fL 35.1-43.9 [facility] Work Phone: Erythrocyte distribution width (RBC) [Ratio] 12.9 % 11.6-14.6 [facility] Work Phone: MCH (RBC) [Entitic mass] 28.9 pg 27.0-32.0 [facility] Work Phone: Nucleated RBC/100 WBC (Bld) [Ratio] 0 % 0-5 [facility] Work Phone: MCHC Auto (RBC) [Mass/Vol]on 08-14-2022 MCHC (RBC) [Mass/Vol] 33.1 g/dL 32-36 [facility] Work Phone: No Panel Informationon 08-14 Estimated GFR (MDRD) Amer 131 mL/min >60 [facility] Work Phone: Comment on above: GFR Calc Estimated GFR (MDRD) Non-Af Amer 108 mL/min >60 [facility] Work Phone: Comment on above: Non- GFR Calc Thyroid Stimulating Hormone (TSH) 1.06 uIU/mL 0.358-3.74 [facility] Work Phone: Platelets bldon 08-14-2022 Platelets (Bld) [#/Vol] 302 10*3/uL 150-450 [facility] Work Phone: Segmented neutrophils/100 WB C Auto (Bld)on 08-14-2022 Segmented neutrophils/100 WBC (Bld) 62.7 % 47-70 [facility] Work Phone: Serum or plasma albumin abdullahi urement (mass/volume)on 08-14-2022 Albumin [Mass/Vol] 3.9 g/dL 3.2-5.0 [facility] Albumin [Mass/Vol] 4.0 g/dL 3.2-5.0 [facility] Work Phone: Serum or plasma albumin/glob ulin mass ratioon 08-14-2022 Albumin/Globulin [Mass ratio] 0.9 {ratio} 0.9-2.4 [facility] Work Phone: Serum or plasma calcium abdullahi urement (mass/volume)on 08-14-2022 Calcium [Mass/Vol] 9.2 mg/dL 8.5-10.1 [facility] Serum or plasma cholesterol in HDL measurement (mass/volume)on 08-14-2022 Cholesterol in HDL [Mass/Vol] 96 mg/dL >40 [facility] Comment on above: The drugs N-Acetylcy steine and Metamizole may falsely depress this assay. Reference Range HDL <40 mg/dL Low HDL Cholesterol HDL >or= 60 mg/dL High HDL Cholesterol Serum or plasma cholesterol in VLDL measurement (mass/volume)on 08-14-2022 Cholesterol in VLDL [Mass/Vol] 21 mg/dL 5-40 [facility] Work Phone: Serum or plasma creatinine m easurement (mass/volume)on 08-14-2022 Creatinine [Mass/Vol] 0.65 mg/dL 0.55-1.02 [facility] Comment on above: The validity of the calculated GFR & GFRAA in patients over 70 years has not been determined. Clinical correlation is essential. Serum or plasma low density lipoprotein (LDL) cholesterol measurement (mass/volume)on 08-14-2022 Cholesterol in LDL [Mass/Vol] 115 mg/dL 0-130 [facility] Serum or plasma urea nitroge n measurement (mass/volume)on 08-14-2022 Urea nitrogen [Mass/Vol] 13 mg/dL 7-18 [facility] TSH (EXTERNAL)on 08-14-2022 TSH 1.06 IU/ml 0.358 - 3.74 IU/ml [facility] Thin prep Papanicolaou smear with manual screeningon 08-14-2022 Thin prep Papanicolaou smear with manual screening 16 U/L 15-37 [facility] Work Phone: Thin prep Papanicolaou smear with manual screening 18 U/L 15-37 [facility] Work Phone: [phone] Thin prep Papanicolaou smear with manual screening 9 5-15 [facility] Work Phone: [phone] Thin prep Papanicolaou smear with manual screening 164 U/L 84-246 [facility] Work Phone: [phone] Absolute lymphocyte counton 06-21-2022 Lymphocytes Auto (Unsp spec) [#/Vol] 0.95 10*3/uL 0.83-4.51 [facility] Work Phone: Basophil percentageon 2021 Amylase [Catalytic activity/Vol] 61 U/L 25-115 [facility] Work Phone: [phone] Basophils/100 WBC (Bld) 0.6 % 0-1 [facility] Work Phone: [phone] Bilirubin [Mass/Vol] 0.30 mg/dL 0.20-1.00 [facility] Work Phone: Comment on above: For patients on eltr ombopag therapy, use of Dimension [place] TBIL is not recommended. Eosinophils/100 WBC (Bld) 1.7 % 0-5 [facility] Work Phone: Neutrophils (Bld) [#/Vol] 3.6 10*3/uL 2.0-7.7 [facility] Work Phone: [phone] Neutrophils/100 WBC (Bld) 68.7 % 47-70 [facility] Work Phone: Protein [Mass/Vol] 8.1 g/dL 6.4-8.2 [facility] Work Phone: WBC (Bld) [#/Vol] 5.3 10*3/uL 4.4-11.0 [facility] Work Phone: Blood erythrocytes count (nu mber/volume)on 06-21-2022 RBC (Bld) [#/Vol] 4.52 10*6/uL 4.2-5.4 [facility] Work Phone: Blood hemoglobin measurement (mass/volume)on 06-21-2022 Hemoglobin (Bld) [Mass/Vol] 13.4 g/dL 12.0-15.0 [facility] Work Phone: Blood lymphocytes/100 leukoc yteson 06-21-2022 Lymphocytes/100 WBC (Bld) 18.0 % 19-41 [facility] Work Phone: Blood monocytes/100 leukocyt eson 06-21-2022 Monocytes/100 WBC (Bld) 10.8 % 0-10 [facility] Work Phone: Blood platelet mean volumeon 06-21-2022 Platelet mean volume (Bld) [Entitic vol] 10.3 fL 6.2-12.0 [facility] Work Phone: Determination of erythrocyte mean corpuscular volume (MCV)on 06-21-2022 MCV (RBC) [Entitic vol] 87.2 fL 81-99 [facility] Work Phone: Direct bilirubinon 2 Bilirubin.direct [Mass/Vol] 0.08 mg/dL 0.00-0.30 [facility] Work Phone: Hematocrit Auto (Bld) [Volum e fraction]on 06-21-2022 Hematocrit (Bld) [Volume fraction] 39.4 % 37-47 [facility] Work Phone: Laboratory - Chemistry and C hemistry - challengeon 06-21-2022 ALP [Catalytic activity/Vol] 51 U/L 45-117 [facility] Work Phone: ALT [Catalytic activity/Vol] 21 U/L 13-56 [facility] Work Phone: Globulin (S) [Mass/Vol] 4.5 g/dL 2.2-4.2 [facility] Work Phone: Lipase [Catalytic activity/Vol] 133 U/L 73-393 [facility] Work Phone: Laboratory - Hematology and Cell countson 06-21-2022 Erythrocyte distribution width (RBC) [Entitic vol] 39.9 fL 35.1-43.9 [facility] Work Phone: Erythrocyte distribution width (RBC) [Ratio] 12.5 % 11.6-14.6 [facility] Work Phone: Immature granulocytes/100 WBC (Bld) 0.200 % 0.0-0.9 [facility] Work Phone: Comment on above: IG% - Immature Granu locytes (promyelocytes, myelocytes and metamyelocytes) > 1% indicates that a LEFT SHIFT is Present. MCH (RBC) [Entitic mass] 29.6 pg 27.0-32.0 [facility] Work Phone: Nucleated RBC/100 WBC (Bld) [Ratio] 0 % 0-5 [facility] Work Phone: MCHC Auto (RBC) [Mass/Vol]on 06-21-2022 MCHC (RBC) [Mass/Vol] 34.0 g/dL 32-36 [facility] Work Phone: Platelets bldon 06-21-2022 Platelets (Bld) [#/Vol] 308 10*3/uL 150-450 [facility] Work Phone: Serum or plasma albumin abdullahi urement (mass/volume)on 06-21-2022 Albumin [Mass/Vol] 3.6 g/dL 3.2-5.0 [facility] Work Phone: Thin prep Papanicolaou smear with manual screeningon 06-21-2022 Thin prep Papanicolaou smear with manual screening 15 U/L 15-37 [facility] Work Phone: Absolute lymphocyte counton 01-26-2022 Lymphocytes Auto (Unsp spec) [#/Vol] 1.14 10*3/uL 0.83-4.51 [facility] Work Phone: Basophil percentageon 2021 Basophil percentage 0 SEEN /hpf [facility] Work Phone: Basophils/100 WBC (Bld) 0.4 % 0-1 [facility] Work Phone: Bilirubin [Mass/Vol] 0.30 mg/dL 0.20-1.00 [facility] Work Phone: Comment on above: For patients on eltr ombopag therapy, use of Dimension [place] TBIL is not recommended. Chloride [Moles/Vol] 103 mmol/L 98-107 [facility] Work Phone: Cholesterol [Mass/Vol] 181 mg/dL <200 [facility] Work Phone: Comment on above: <200 mg/dL Desirable 200-240 mg/dL Borderline >240 mg/dL High Risk Eosinophils/100 WBC (Bld) 2.2 % 0-5 [facility] Work Phone: Glucose [Mass/Vol] 106 mg/dL 74-106 [facility] Work Phone: Comment on above: Fasting Glucose resu lt from 100 to 125 mg/dL suggests IMPAIRED HOMEOSTASIS per A.D.A. criteria. Neutrophils (Bld) [#/Vol] 3.2 10*3/uL 2.0-7.7 [facility] Work Phone: Neutrophils/100 WBC (Bld) 63.7 % 47-70 [facility] Work Phone: Potassium [Moles/Vol] 4.2 mmol/L 3.5-5.1 [facility] Work Phone: Protein [Mass/Vol] 7.9 g/dL 6.4-8.2 [facility] Work Phone: Sodium [Moles/Vol] 137 mmol/L 136-145 [facility] Work Phone: Triglyceride [Mass/Vol] 119 mg/dL [facility] Work Phone: Comment on above: The drugs N-Acetylcy steine and Metamizole may falsely depress this assay.Serum Triglycerides Reference Interval Normal <150 mg/dL Borderline high 150 - 199 mg/dL High 200 - 499 mg/dL Very High > or = 500 mg/dL WBC (Bld) [#/Vol] 5.1 10*3/uL 4.4-11.0 [facility] Work Phone: Bilirubin Test strip Ql (U)o n 01-26-2022 Bilirubin Ql (U) Negative Negative [facility] Work Phone: Blood erythrocytes count (nu mber/volume)on 01-26-2022 RBC (Bld) [#/Vol] 4.52 10*6/uL 4.2-5.4 [facility] Work Phone: Blood hemoglobin measurement (mass/volume)on 01-26-2022 Hemoglobin (Bld) [Mass/Vol] 13.2 g/dL 12.0-15.0 [facility] Work Phone: Blood lymphocytes/100 leukoc yteson 01-26-2022 Lymphocytes/100 WBC (Bld) 22.6 % 19-41 [facility] Work Phone: Blood monocytes/100 leukocyt eson 01-26-2022 Monocytes/100 WBC (Bld) 10.9 % 0-10 [facility] Work Phone: Blood platelet mean volumeon 01-26-2022 Platelet mean volume (Bld) [Entitic vol] 10.2 fL 6.2-12.0 [facility] Work Phone: Determination of erythrocyte mean corpuscular volume (MCV)on 01-26-2022 MCV (RBC) [Entitic vol] 86.5 fL 81-99 [facility] Work Phone: Hematocrit Auto (Bld) [Volum e fraction]on 01-26-2022 Hematocrit (Bld) [Volume fraction] 39.1 % 37-47 [facility] Work Phone: Ketones Test strip Ql (U)on 01-26-2022 Ketones Ql (U) Negative Negative [facility] Work Phone: Laboratory - Chemistry and C hemistry - challengeon 01-26-2022 ALP [Catalytic activity/Vol] 49 U/L 45-117 [facility] Work Phone: ALT [Catalytic activity/Vol] 26 U/L 13-56 [facility] Work Phone: CO2 [Moles/Vol] 29.0 mmol/L 21.0-32.0 [facility] Work Phone: Globulin (S) [Mass/Vol] 4.0 g/dL 2.2-4.2 [facility] Work Phone: Magnesium [Mass/Vol] 1.9 mg/dL 1.6-2.6 [facility] Work Phone: Urea nitrogen/Creatinine [Mass ratio] 19.5 mg/mg 10-20 [facility] Work Phone: Laboratory - Hematology and Cell countson 01-26-2022 Erythrocyte distribution width (RBC) [Entitic vol] 38.5 fL 35.1-43.9 [facility] Work Phone: Erythrocyte distribution width (RBC) [Ratio] 12.0 % 11.6-14.6 [facility] Work Phone: Immature granulocytes/100 WBC (Bld) 0.200 % 0.0-0.9 [facility] Work Phone: Comment on above: IG% - Immature Granu locytes (promyelocytes, myelocytes and metamyelocytes) > 1% indicates that a LEFT SHIFT is Present. MCH (RBC) [Entitic mass] 29.2 pg 27.0-32.0 [facility] Work Phone: Nucleated RBC/100 WBC (Bld) [Ratio] 0 % 0-5 [facility] Work Phone: MCHC Auto (RBC) [Mass/Vol]on 01-26-2022 MCHC (RBC) [Mass/Vol] 33.8 g/dL 32-36 [facility] Work Phone: Mucus LM Ql (Urine sed)on Mucus Ql (Urine sed) 0 SEEN /hpf [facility] Work Phone: Nitrite Test strip Ql (U)on 01-26-2022 Nitrite Ql (U) Negative Negative [facility] Work Phone: No Panel Informationon 01-26 Estimated GFR (MDRD) Amer 117 mL/min >60 [facility] Work Phone: Comment on above: GFR Calc Estimated GFR (MDRD) Non-Af Amer 97 mL/min >60 [facility] Work Phone: Comment on above: Non- GFR Calc Thyroid Stimulating Hormone (TSH) 1.60 uIU/mL 0.358-3.74 [facility] Work Phone: Platelets bldon 01-26-2022 Platelets (Bld) [#/Vol] 306 10*3/uL 150-450 [facility] Work Phone: Protein Test strip Ql (U)on 01-26-2022 Protein Ql (U) Negative Negative [facility] Work Phone: Serum or plasma albumin abdullahi urement (mass/volume)on 01-26-2022 Albumin [Mass/Vol] 3.9 g/dL 3.2-5.0 [facility] Work Phone: Serum or plasma albumin/glob ulin mass ratioon 01-26-2022 Albumin/Globulin [Mass ratio] 1.0 {ratio} 0.9-2.4 [facility] Work Phone: Serum or plasma calcium abdullahi urement (mass/volume)on 01-26-2022 Calcium [Mass/Vol] 9.0 mg/dL 8.5-10.1 [facility] Work Phone: Serum or plasma cholesterol in HDL measurement (mass/volume)on 01-26-2022 Cholesterol in HDL [Mass/Vol] 67 mg/dL [facility] Work Phone: Comment on above: The drugs N-Acetylcy steine and Metamizole may falsely depress this assay. Reference Range HDL <40 mg/dL Low HDL Cholesterol HDL >or= 60 mg/dL High HDL Cholesterol Serum or plasma cholesterol in VLDL measurement (mass/volume)on 01-26-2022 Cholesterol in VLDL [Mass/Vol] 24 mg/dL 5-40 [facility] Work Phone: Serum or plasma creatinine m easurement (mass/volume)on 01-26-2022 Creatinine [Mass/Vol] 0.72 mg/dL 0.55-1.02 [facility] Work Phone: Comment on above: The validity of the calculated GFR & GFRAA in patients over 70 years has not been determined. Clinical correlation is essential. Serum or plasma low density lipoprotein (LDL) cholesterol measurement (mass/volume)on 01-26-2022 Cholesterol in LDL [Mass/Vol] 90 mg/dL 0-130 [facility] Work Phone: Serum or plasma urea nitroge n measurement (mass/volume)on 01-26-2022 Urea nitrogen [Mass/Vol] 14 mg/dL 7-18 [facility] Work Phone: Squamous epithelial cells de tection in urine sediment by light microscopyon 01-26-2022 Epithelial cells.squamous LM Ql (Urine sed) 0-5 SEEN /hpf [facility] Work Phone: Thin prep Papanicolaou smear with manual screeningon 01-26-2022 Thin prep Papanicolaou smear with manual screening 15 U/L 15-37 [facility] Work Phone: Thin prep Papanicolaou smear with manual screening 5 5-15 [facility] Work Phone: Urine blood detectionon 01-06 RBC Ql (U) Negative Negative [facility] Work Phone: RBC Ql (U) 0 SEEN /hpf [facility] Work Phone: Urine clarityon 01-26-2022 Clarity (U) Sl. Cloudy Clear [facility] Work Phone: Urine color determinationon 01-26-2022 Color (U) Yellow Yellow [facility] Work Phone: Urine glucose detectionon Glucose Ql (U) Normal mg/dl Normal [facility] Work Phone: Urine leukocyte esterase det ection by dipstickon 01-26-2022 Leukocyte esterase Test strip Ql (U) Negative Negative [facility] Work Phone: Urine pHon 01-26-2022 pH (U) 7.0 [pH] [facility] Work Phone: Urine sediment bacteria coun t by microscopy (number/high power field)on 01-26-2022 Bacteria LM.HPF (Urine sed) [#/Area] 0 /[HPF] None Seen [facility] Work Phone: Urine specific gravity measu rementon 01-26-2022 Specific gravity (U) [Rel density] 1.010 [facility] Work Phone: Urobilinogen Auto test strip Ql (U)on 01-26-2022 Urobilinogen Ql (U) Normal mg/dl Normal [facility] Work Phone: Whole blood hemoglobin A1c/t otal hemoglobin ratio (mass fraction)on 01-26-2022 HbA1c (Bld) [Mass fraction] 4.8 % 3.8-5.6 [facility] Work Phone: Comment on above: Normal < 5.7 % Predi abetic 5.7 - 6.4 % Diabetic >or= 6.5 % Please note range changes. Laboratory - Microbiology an d Antimicrobial susceptibilityon 10-19-2021 SARS-CoV-2 (COVID-19) RNA JASE+probe Ql (Unsp spec) Not detected [facility] Work Phone: OBSOLETEon 07-06-2018 OBSOLETE Refill (AGCARDPOB) Ben ZEEROMI ([id number]) 1985 FDate Time Provider Department07/06/18 [facility] [...] hypertension [I10] INVALID FOR* Priority: AEncounter Number: [id number] Status:Closed by DOMINIQUE IBARRA on 07/08/18 [facility] OBSOLETEon 06-20-2018 OBSOLETE Refill (AGCARDPOB) ROMI LOCKWOOD ([id number]) 1985 [facility] Time Provider Department06/20/18 [facility] AGCARDPOB [...] Made depression worseDate Reviewed: 06/04/2018Reviewed by: Shanna ([facility]) [place] - Fully AssessedReason for Visit: Refill [...] hypertension [I10] INVALID FOR* Priority: AEncounter Number: [id number] Status:Closed by MONICA GANNON on 06/20/18 [facility] CNOVon 06-04-2018 OV Office Visit (AGCARDPOB) ROMI LOCKWOOD ([id number]) 1985 FDate Time Provider Department06/04/18 3:00 PM [...] pressure-Heart valve problems-Genetic problems with the heart mtptdp-Ygrkitekhx-Plzft carlos-Lung diseaseProblems that may worsen or trigger heart failure, especially if your heartmuscle is weak, include:-Severe anemia (a low level of red blood cells)-An overactive or underactive thyroid pqcgj-Yjfoxxphn-I heartbeat that is too fast or too [...] lie flat in bedbecause of shortness of fmwqrl-Pqjqqkyo-Wvvxswl ankles, feet, and legs-Weight gain caused by [...] to loweryour risk for heart failure.Developed by [employer].Published by [employer].Copyright ?2014 [employer] and/or one of its subsidiaries. 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 Right. [...] reduction- PAST SURGICAL HISTORY OF 01/15/2017 micodiscectomy [id number] HistoryProblem Relation Age of Onset- other (diabetes mellitus) Mother- Coronary Artery Disease Father from [place] age 60- other (Sudden ) Father- COPD [...] and doing well. Sheappears euvolemic on exam [place] [employer] functional class II. Sheremains on [...] your risk for heart failure. Developed by [employer]. Published by [employer]. Copyright ?2014 [employer] and/or one of its subsidiaries. 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 Right. [...] reduction- PAST SURGICAL HISTORY OF 01/15/2017 micodiscectomy [id number] HistoryProblem Relation Age of Onset- other (diabetes mellitus) Mother- Coronary Artery Disease Father from [place] age 60- other (Sudden ) Father- COPD [...] and doing well.She appears euvolemic on exam [place] [employer] Association functional classII. She remains on [...] Dr. Faith in approximately a year. Normal [facility] Vital Signs Date Time Vital Sign Value Performing Clinician Facility 02-12-2025 10:54-0400 Body height 177.8 cm [employer] Work Phone: [facility] 02-12-2025 10:54-0400 Body mass index (BMI) [Ratio] 37.88 kg/m2 [employer] Work Phone: [facility] 02-12-2025 10:54-0400 Body weight 119.75 kg [employer] Work Phone: [facility] 02-12-2025 10:54-0400 Diastolic blood pressure 72 mm[Hg] [employer] Work Phone: [facility] 02-12-2025 10:54-0400 Heart rate 69 /min [employer] Work Phone: [facility] 02-12-2025 10:54-0400 SaO2% (BldA) [Mass fraction] 98 % Elder Chao PA-C Work Phone: [facility] 02-12-2025 10:54-0400 Systolic blood pressure 103 mm[Hg] Elder Chao PA-C Work Phone: [facility] 11-26-2024 07:02-0500 Body mass index (BMI) [Ratio] 40.46 kg/m2 Kady Sol APRN.SCALE RECLAMATION TENDER Work Phone: [facility] 11-26-2024 07:02-0500 Body weight 125.19 kg Kady Sol APRN.SCALE RECLAMATION TENDER Work Phone: [facility] 11-26-2024 07:02-0500 Diastolic blood pressure 70 mm[Hg] Kady Sol APRN.SCALE RECLAMATION TENDER Work Phone: [facility] 11-26-2024 07:02-0500 Systolic blood pressure 122 mm[Hg] Kady Sol APRN.SCALE RECLAMATION TENDER Work Phone: [facility] 11-21-2024 10:02-0500 Body mass index (BMI) [Ratio] 40.61 kg/m2 Isael Fish MD Work Phone: [facility] 11-21-2024 10:02-0500 Body temperature 97.5 [degF] Isael Fish MD Work Phone: [facility] 11-21-2024 10:02-0500 Body weight 125.65 kg Isael Fish MD Work Phone: [facility] 11-21-2024 10:02-0500 Diastolic blood pressure 68 mm[Hg] Isael Fish MD Work Phone: [facility] 11-21-2024 10:02-0500 Heart rate 27 /min Isael Fish MD Work Phone: [facility] 11-21-2024 10:02-0500 Respiratory rate 16 /min Isael Fish MD Work Phone: [facility] 11-21-2024 10:02-0500 Systolic blood pressure 110 mm[Hg] Isael Fish MD Work Phone: [facility] 03-18-2024 16:27-0400 Body height 175.9 cm Isael Fish MD Work Phone: [facility] 03-18-2024 16:27-0400 Body mass index (BMI) [Ratio] 40.02 kg/m2 Isael Fish MD Work Phone: [facility] 03-18-2024 16:27-0400 Body weight 123.83 kg Isael Fish MD Work Phone: [facility] 03-18-2024 16:27-0400 Diastolic blood pressure 80 mm[Hg] Isael Fish MD Work Phone: [facility] 03-18-2024 16:27-0400 Heart rate 72 /min Isael Fish MD Work Phone: [facility] 03-18-2024 16:27-0400 Respiratory rate 16 /min Isael Fish MD Work Phone: [facility] 03-18-2024 16:27-0400 Systolic blood pressure 130 mm[Hg] Isael Fish MD Work Phone: [facility] 09-11-2023 16:47-0500 Diastolic blood pressure 84 mm[Hg] Isael Fish MD Work Phone: [facility] 09-11-2023 16:47-0500 Systolic blood pressure 128 mm[Hg] Isael Fish MD Work Phone: [facility] 09-11-2023 15:56-0500 Body weight 136.08 kg Isael Fish MD Work Phone: [facility] 09-11-2023 15:56-0500 Heart rate 80 /min Isael Fish MD Work Phone: [facility] 09-11-2023 15:56-0500 Respiratory rate 18 /min Isael Fish MD Work Phone: [facility] 03-06-2023 15:49-0400 Body height 177.8 cm Isael Fish MD Work Phone: [facility] 03-06-2023 15:49-0400 Body weight 130.64 kg Isael Fish MD Work Phone: [facility] 03-06-2023 15:49-0400 Diastolic blood pressure 84 mm[Hg] Isael Fish MD Work Phone: [facility] 03-06-2023 15:49-0400 Heart rate 78 /min Isael Fish MD Work Phone: [facility] 03-06-2023 15:49-0400 Respiratory rate 14 /min Isael Fish MD Work Phone: [facility] 03-06-2023 15:49-0400 Systolic blood pressure 134 mm[Hg] Isael Fish MD Work Phone: [facility] 09-21-2022 19:18-0500 Body height 175.26 cm [facility] Work Phone: 09-21-2022 19:18-0500 Body mass index (BMI) [Ratio] 38.9 kg/m2 [facility] Work Phone: 09-21-2022 19:18-0500 Body temperature 97.9 [degF] [facility] Work Phone: 09-21-2022 19:18-0500 Body weight 119.74 kg [facility] Work Phone: 09-21-2022 19:18-0500 Diastolic blood pressure 107 mm[Hg] [facility] Work Phone: 09-21-2022 19:18-0500 Heart rate 97 /min [facility] Work Phone: 09-21-2022 19:18-0500 Respiratory rate 18 /min [facility] Work Phone: 09-21-2022 19:18-0500 SaO2% (BldA) [Mass fraction] 98 % [facility] Work Phone: 09-21-2022 19:18-0500 Systolic blood pressure 154 mm[Hg] [facility] Work Phone: 08-15-2022 18:35-0500 Diastolic blood pressure 86 mm[Hg] Isael Fish MD Work Phone: [facility] 08-15-2022 18:35-0500 Systolic blood pressure 128 mm[Hg] Isael Fish MD Work Phone: [facility] 08-15-2022 17:46-0500 Body weight 119.75 kg Isael Fish MD Work Phone: [facility] 08-15-2022 17:46-0500 Heart rate 82 /min Isael Fish MD Work Phone: [facility] 08-15-2022 17:46-0500 Respiratory rate 16 /min Isael Fish MD Work Phone: [facility] 06-20-2022 19:33-0400 Body temperature 99.19 [degF] Isael Fish MD Work Phone: [facility] 06-20-2022 19:33-0400 Body weight 120.2 kg Isael Fish MD Work Phone: [facility] 06-20-2022 19:33-0400 Diastolic blood pressure 86 mm[Hg] Isael Fish MD Work Phone: [facility] 06-20-2022 19:33-0400 Heart rate 88 /min Isael Fish MD Work Phone: [facility] 06-20-2022 19:33-0400 Respiratory rate 16 /min Isael Fish MD Work Phone: [facility] 06-20-2022 19:33-0400 Systolic blood pressure 126 mm[Hg] Isael Fish MD Work Phone: [facility] 02-28-2022 07:59-0400 Body height 177.8 cm Kady Sol APRN.SCALE RECLAMATION TENDER Work Phone: [facility] 02-28-2022 07:59-0400 Body weight 117.94 kg Kady Sol 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 TENDER Work Phone: [facility] 02-28-2022 07:59-0400 Diastolic blood pressure 76 mm[Hg] Kady Sol APRN.SCALE RECLAMATION TENDER Work Phone: [facility] 02-28-2022 07:59-0400 Systolic blood pressure 130 mm[Hg] Kady Sol APRN.SCALE RECLAMATION TENDER Work Phone: [facility] 01-16-2022 09:00-0400 Body temperature 96.8 [degF] Dr. Isael Fish Work Phone: [facility] Work Phone: 01-16-2022 09:00-0400 Diastolic blood pressure 80 mm[Hg] Dr. Isael Fish Work Phone: [facility] Work Phone: 01-16-2022 09:00-0400 Heart rate 97 /min Dr. Isael Fish Work Phone: [facility] Work Phone: 01-16-2022 09:00-0400 Respiratory rate 16 /min Dr. Isael Fish Work Phone: [facility] Work Phone: 01-16-2022 09:00-0400 SaO2% (BldA) [Mass fraction] 98 % Dr. Isael Fish Work Phone: [facility] Work Phone: 01-16-2022 09:00-0400 Systolic blood pressure 122 mm[Hg] Dr. Isael Fish Work Phone: [facility] Work Phone: 12-27-2021 10:41-0400 Body height 175.3 cm Elder Chao PA-C Work Phone: [facility] 12-27-2021 10:41-0400 Body weight 121.56 kg Elder Chao PA-C Work Phone: [facility] 03-23-2022 10:41-0400 Diastolic blood pressure 81 mm[Hg] Elder Chao PA-C Work Phone: [facility] 12-27-2021 10:41-0400 Heart rate 77 /min Elder Chao PA-C Work Phone: [facility] 12-27-2021 10:41-0400 Systolic blood pressure 130 mm[Hg] Elder Chao PA-C Work Phone: [facility] 11-15-2021 15:39-0500 Body height 177.[address] Isael Fish Work Phone: [facility] Work Phone: 11-15-2021 15:39-0500 Body mass index (BMI) [Ratio] 38.5 kg/m2 Dr. Isael Fish Work Phone: [facility] Work Phone: 11-15-2021 15:39-0500 Body temperature 97.3 [degF] Dr. Isael Fish Work Phone: [facility] Work Phone: 11-15-2021 15:39-0500 Body weight 122.[address] Isael Fish Work Phone: [facility] Work Phone: 11-15-2021 15:39-0500 Diastolic blood pressure 86 mm[Hg] Dr. Isael Fish Work Phone: [facility] Work Phone: 11-15-2021 15:39-0500 Heart rate 101 /min Dr. Isael Fish Work Phone: [facility] Work Phone: 11-15-2021 15:39-0500 Respiratory rate 18 /min Dr. Isael Fish Work Phone: [facility] Work Phone: 11-15-2021 15:39-0500 SaO2% (BldA) [Mass fraction] 97 % Dr. Isael Fish Work Phone: [facility] Work Phone: 11-15-2021 15:39-0500 Systolic blood pressure 148 mm[Hg] Dr. Isael Fish Work Phone: [facility] Work Phone: Encounters Encounter Date Encounter Type Care Provider Facility Start: 04-21-2025 ambulatory ROBERTA STROUD Facility:[facility] Start: 03-29-2025 End: 03-29-2025 ambulatory Isael Fish Facility:[facility] Start: 02-12-2025 End: 02-12-2025 Patient encounter procedure Elder Chao PA-C Work Phone: [facility] Comment on above: Multiple sclerosis ( HCC) (Primary Dx) Start: 02-12-2025 End: 02-12-2025 ambulatory ISAEL IFSH Facility:[facility] Start: 02-02-2025 End: 02-02-2025 Refill Isael Fish MD Work Phone: [facility] Comment on above: Refill Request Start: 01-21-2025 End: 01-21-2025 ambulatory Isael Fish Facility:[facility] Start: 01-18-2025 End: 01-18-2025 ambulatory Isael Fish Facility:[facility] Start: 12-31-2024 End: 01-04-2025 ambulatory Elder LONDONO-C Work Phone: [facility] Start: 12-31-2024 End: 01-04-2025 Follow-up encounter Elder LONDONO-C Work Phone: [facility] Comment on above: Test and Medication follow up Start: 12-28-2024 End: 01-06-2025 ambulatory Elder LONDONO-C Work Phone: [facility] Comment on above: Test and Medication Start: 11-26-2024 End: 11-26-2024 ambulatory KADY SOL Facility:[facility] Start: 11-26-2024 End: 11-26-2024 Patient encounter procedure Kady Sol APRN.SCALE RECLAMATION TENDER Work Phone: OB/Gynecology Comment on above: Encounter for gyneco logical examination (general) (routine) without abnormal findings (Primary Dx); Surveillance for control, oral contraceptives Start: 11-26-2024 End: 11-26-2024 Patient encounter status Kady Cochranie SCALE RECLAMATION TENDER Work Phone: [facility] Start: 11-21-2024 End: 11-21-2024 ambulatory ISAEL FISH Facility:[facility] Start: 11-21-2024 End: 11-21-2024 Patient encounter procedure Isael Fish MD Work Phone: [facility] Comment on above: Essential hypertensi on [...] E-mail encounter from caregiver Evelinagarett Peter HUNTER [facility] Start: 11-09-2024 End: 11-17-2024 Patient encounter procedure Evelina Peter MA [facility] Comment on above: Appointment Start: 11-06-2024 End: 11-06-2024 Refill Isael Fish MD Work Phone: [facility] Comment on above: Refill Request Start: 11-05-2024 End: 11-09-2024 Chart abstracting Isael Fish MD Work Phone: [facility] Comment on above: Outside Labs-[facility] Refill Request Start: 11-04-2024 End: 11-04-2024 ambulatory Isael Fish Facility:[facility] Start: 11-04-2024 End: 11-04-2024 ambulatory Isael Fish Facility:[facility] Start: 09-07-2024 End: 09-07-2024 Refill Rich Nicholson APRN.SCALE RECLAMATION TENDER Work Phone: Neurology Comment on above: Refill Request Start: 09-01-2024 End: 09-01-2024 Telephone encounter Elder Chao PA-C Work Phone: [facility] Comment on above: Appointment (tried c alling patient to get her scheduled for a follow up but patients refused appointment) Start: 08-29-2024 End: 08-31-2024 Refill Isael Fish MD Work Phone: [facility] Comment on above: Refill Request Start: 07-22-2024 End: 07-22-2024 ambulatory Isael Fish Facility:[facility] Start: 07-14-2024 End: 07-15-2024 ambulatory Isael Fish MD Work Phone: [facility] Comment on above: Stomach bug? Start: 07-02-2024 End: 07-03-2024 ambulatory Elder Chao PA-C Work Phone: [facility] Comment on above: Lyrica Start: 06-22-2024 End: 06-22-2024 ambulatory Isael Fish Facility:[facility] Start: 05-29-2024 End: 06-03-2024 Refill Kady Sol APRN.SCALE RECLAMATION TENDER Work Phone: OB/Gynecology Comment on above: Refill Request Start: 05-25-2024 End: 05-25-2024 Refill Isael Fish MD Work Phone: [facility] Comment on above: Refill Request Start: 05-23-2024 End: 05-29-2024 ambulatory Isael Fish MD Work Phone: [facility] Comment on above: Vacation Refill and appt Start: 05-04-2024 Chart abstracting Evelina Peter MA [facility] Comment on above: Consult (Outside Con sult for Ortho ) Start: 04-30-2024 End: 04-30-2024 ambulatory Isael Fish Facility:[facility] Start: 04-30-2024 End: 04-30-2024 ambulatory Isael Fish Facility:[facility] Start: 04-21-2024 Telephone encounter Isael Fish MD Work Phone: [facility] Comment on above: Results (EMG/NCS) Start: 04-21-2024 ambulatory Isael Fish Facility :[facility] Start: 04-21-2024 End: 04-21-2024 ambulatory Isael Fish Facility:[facility] Start: 03-26-2024 Telephone encounter Isael Fish MD Work Phone: [facility] Comment on above: Results Start: 03-24-2024 Telephone encounter Isael Fish MD [facility] Comment on above: Results (/) Start: 03-18-2024 Encounter for genera l adult medical examination without abnormal findings ISAEL FISH [facility] Start: 03-18-2024 End: 03-18-2024 Patient encounter procedure Isael Fish MD Work Phone: [facility] Comment on above: Well adult exam (Gladis [...] Start: 03-18-2024 End: 03-18-2024 ambulatory ISAEL FISH Facility:[facility] Start: 03-18-2024 End: 03-18-2024 Patient encounter status Isael Fish MD Work Phone: [facility] Work Phone: Start: 03-17-2024 Chart abstracting Isael myers MD Work Phone: [facility] Comment on above: Outside Mammogram Start: 03-10-2024 Chart abstracting Isael myers MD Work Phone: [facility] Comment on above: Outside Labs-[facility] Start: 02-12-2024 ambulatory Isael castro MD Work Phone: [facility] [place] Comment on above: Xray? Start: 02-05-2024 ambulatory Isael castro MD Work Phone: [facility] [place] Start: 01-28-2024 ambulatory Elder Oneal Work Phone: [facility] Comment on above: MRI Start: 01-28-2024 E-mail encounter fro m caregiver Elder Chao PA-C Work Phone: [facility] Start: 01-27-2024 Chart abstracting Isael myers MD Work Phone: [facility] [place] Comment on above: Ext / Labs Start: 01-24-2024 Refill Kathie Narciso iverson APRN.SCALE RECLAMATION TENDER Work Phone: [facility] Comment on above: Refill Request Start: 11-11-2023 ambulatory Isael castro MD Work Phone: [facility] Comment on above: Annoying Cough ([employer]) Start: 09-13-2023 Telephone encounter Isael Fish MD Work Phone: [facility] Comment on above: Results (X-ray/) Start: 09-11-2023 End: 09-11-2023 Patient encounter procedure Isael Fish MD Work Phone: [facility] [place] Comment on above: Essential hypertensi on (Primary [...] Refill Romi Cher silva APRN.CNP Work Phone: [facility] [place] Comment on above: Refill Request Start: 08-30-2023 Telephone encounter Isael Fish MD Work Phone: [facility] [place] Comment on above: Results Start: 06-13-2023 Chart abstracting Isael myers MD Work Phone: [facility] [place] Comment on above: ext results (MRI and Labs) Start: 05-22-2023 Refill Binggarett Eller on PA-C Work Phone: [facility] [place] Comment on above: Refill Request Start: 05-15-2023 Refill Isael castro MD Work Phone: [facility] Comment on above: Refill Request Start: 03-30-2023 Refill Bing Eller on PA-C Work Phone: [facility] [place] Comment on above: Refill Request Start: 03-06-2023 End: 03-06-2023 Patient encounter procedure Isael Fish MD Work Phone: [facility] Comment on above: Well adult exam [...] encounter status Isael Fish MD Work Phone: [facility] Start: 02-15-2023 MC Get Medical Advice Isael Fish MD Work Phone: [facility] [place] Comment on above: Orders and FYI Start: 02-12-2023 Chart abstracting Isael myers MD Work Phone: [facility] [place] Start: 02-04-2023 ambulatory Isael castro MD Work Phone: [facility] [place] Start: 02-04-2023 Patient encounter procedure Isael Fish MD Work Phone: [facility] [place] Comment on above: Dermo Referral Start: 02-01-2023 End: 02-01-2023 ambulatory Elder Chao PA-C Work Phone: [facility] Comment on above: Multiple sclerosis, relapsing-remitting (HCC) Start: 02-01-2023 End: 02-01-2023 Telemedicine consultation with patient Elder Chao PA-C Work Phone: [facility] Start: 01-23-2023 Chart abstracting Isael myers MD Work Phone: [facility] Comment on above: Results Start: 01-11-2023 ambulatory Elder Chao P A-C Work Phone: [facility] Comment on above: labs Start: 01-11-2023 E-mail encounter fro m caregiver Elder Chao PA-C Work Phone: [facility] Start: 01-10-2023 Chart abstracting Iseal myers MD Work Phone: [facility] Comment on above: Outside [id number] Ordered Start: 01-05-2023 Refill Isael castro MD Work Phone: [facility] [place] Comment on above: Refill Request Start: 12-24-2022 Refill Elder Young P A-C Work Phone: [facility] Comment on above: Refill Request Start: 12-23-2022 Refill Elder Young P A-C Work Phone: [facility] Comment on above: Refill Request Start: 12-19-2022 Refill Steph Bowen Work Phone: [facility] Comment on above: Refill Request Start: 12-14-2022 ambulatory Isael castro MD Work Phone: [facility] Comment on above: Sinus Season Start: 12-06-2022 ambulatory Elder Oneal Work Phone: [facility] Comment on above: MRI needed? Start: 11-16-2022 Chart abstracting Isael myers MD Work Phone: [facility] Comment on above: Results, Lab Start: 11-16-2022 Telephone encounter Evelina Gary HARRISON [facility] Comment on above: Results Start: 10-15-2022 ambulatory Isael castro MD Work Phone: [facility] [place] Start: 10-15-2022 Patient encounter procedure Isael Fish MD Work Phone: [facility] Comment on above: Referral Start: 09-21-2022 End: 09-21-2022 Emergency department patient visit [facility] Start: 09-20-2022 ambulatory Elder Oneal Work Phone: [facility] Comment on above: Chest tightness Start: 08-27-2022 ambulatory Isael castro MD Work Phone: [facility] Comment on above: BP Start: 08-15-2022 End: 08-15-2022 Refill Isael Fish MD Work Phone: [facility] Comment on above: Refill Request Essential hypertensi on (Primary Dx); Mixed hyperlipidemia; Postprocedural hypothyroidism; Migraine with aura and without status migrainosus, not intractable; GERD without esophagitis; Multiple sclerosis (HCC); Takotsubo cardiomyopathy; Chronic systolic heart failure (HCC); Generalized anxiety disorder; Obesity, Class II, BMI 35-39.9; Encounter for immunization Start: 08-14-2022 End: 08-14-2022 ambulatory [facility] Work Phone: Start: 08-14-2022 End: 08-14-2022 Patient encounter procedure [facility] Start: 08-14-2022 Registered Referred [facility] Start: 08-07-2022 MC Get Medical Advice Isael Fish MD Work Phone: [facility] Comment on above: Lab Orders Needed :) Start: 07-26-2022 Chart abstracting Elder Chao PA-C Work Phone: [facility] Comment on above: Forms (FMLA) Start: 07-24-2022 Refill Isael castro MD Work Phone: [facility] Comment on above: Refill Request Start: 07-09-2022 End: 07-09-2022 ambulatory [facility] Work Phone: Start: 07-09-2022 End: 07-09-2022 Patient encounter procedure [facility], [facility] Start: 06-25-2022 Telephone encounter Isael Fish MD Work Phone: [facility] Comment on above: Results Start: 06-21-2022 End: 06-21-2022 ambulatory [facility] Work Phone: Start: 06-21-2022 End: 06-21-2022 Patient encounter procedure [facility] Start: 06-20-2022 End: 06-20-2022 Patient encounter procedure Isael Fish MD Work Phone: [facility] Comment on above: Epigastric pain (Gladis angelina Dx); RUQ pain Start: 06-18-2022 ambulatory Isael castro MD Work Phone: [facility] Comment on above: Labs and Other Start: 05-02-2022 Refill Isael castro MD Work Phone: [facility] Comment on above: Refill Request Start: 04-18-2022 Refill Steph Bowen Work Phone: [facility] Comment on above: Refill Request Start: 04-13-2022 Refill Isael castro MD Work Phone: [facility] Comment on above: Refill Request Start: 02-28-2022 End: 02-28-2022 Patient encounter procedure Kady Sol APRN.CNP Work Phone: OB/Gynecology Comment on above: Encounter for gyneco logical examination (general) (routine) without abnormal findings (Primary Dx); Surveillance for control, oral contraceptives; Obesity (BMI 35.0-39.9 without comorbidity) Start: 02-28-2022 End: 02-28-2022 Patient encounter status Kady Sol APRN.SCALE RECLAMATION TENDER Work Phone: OB/Gynecology Start: 01-31-2022 Patient encounter status Kady elder APRN.SCALE RECLAMATION TENDER Work Phone: [facility] Work Phone: Start: 01-26-2022 End: 01-26-[address] Isael Fish Work Phone: [facility] Start: 01-23-[address] Isael Fish Work Phone: [facility] Start: 01-16-2022 End: 01-16-[address] Isael Fish Work Phone: [facility] Start: 01-15-2022 Refill Isael castro MD Work Phone: [facility] [place] Comment on above: Refill Request Opened In Error Start: 12-27-2021 End: 12-27-2021 Patient encounter procedure Elder Chao PA-C Work Phone: [facility] Comment on above: Vitamin D deficiency (Primary Dx); Multiple sclerosis, relapsing-remitting (HCC); Spasm Start: 12-13-2021 End: 12-13-[address] Isael Fish Work Phone: [facility], [facility] Start: 11-15-2021 End: 11-15-[address] Isael Fish Work Phone: [facility] Start: 10-19-2021 End: 10-19-[address] Isael Fish Work Phone: [facility] Start: 04-21-2021 Patient encounter status Lizz KIDDC Work Phone: [facility] Work Phone: Start: 06-04-2018 End: 06-04-2018 Patient encounter SHANNA JARRETT Facility:[facility] Start: 07-18-2016 Patient encounter status Sanket Chao VITALIY Work Phone: [facility] Work Phone: Procedures Date Procedure Procedure [...] Detail Author Start: 09-03-2028 Urine microalbumin profile [facility] Start: 03-01-2028 HPV TESTING HPV TESTING [facility] Start: 03-01-2028 PAP TESTING PAP TESTING [facility] Start: 03-01-2028 Screening for malign ant neoplasm of cervix [facility] Start: 02-12-2026 BP Controlled (<130/80) BP Controlle d (<130/80) [facility] Start: 11-26-2025 BP Controlled (<130/80) BP Controlle d (<130/80) [facility] Start: 11-21-2025 Annual PCP Team Commercial Fisher shahana Disease Visit Annual PCP Team Chronic Disease Visit [facility] Start: 11-21-2025 BP Controlled (<130/80) BP Controlle d (<130/80) [facility] Start: 05-21-2025 End: 05-21-2025 Patient encounter procedure [facility] Comment on above: physical Start: 05-07-2025 End: 08-06-2025 CBC W Auto Differential panel - Blood COMPLETE BLOOD COUNT AND DIFFERENTIAL Lab Routine Postprocedural hypothyroidism Expected: 05/07/2025, Expires: 08/06/2025 [facility] Comment on above: Expected: 05/07/2025 , Expires: 08/06/2025 Start: 05-07-2025 End: 08-06-2025 Cobalamin (Vitamin B12) [Mass/volume] in Serum or Plasma VITAMIN B12 Lab Routine GERD without esophagitis Medication management Expected: 05/07/2025, Expires: 08/06/2025 [facility] Comment on above: Expected: 05/07/2025 , Expires: 08/06/2025 Start: 05-07-2025 End: 08-06-2025 Comprehensive metabolic 2000 panel - Serum or Plasma COMPREHENSIVE METABOLIC PANEL Lab Routine Essential hypertension Mixed hyperlipidemia Expected: 05/07/2025, Expires: 08/06/2025 [facility] Comment on above: Expected: 05/07/2025 , Expires: 08/06/2025 Start: 05-07-2025 End: 08-06-2025 Hemoglobin A1c in Blood HEMOGLOBIN A1C Lab Routine Encounter for screening for diabetes mellitus Expected: 05/07/2025, Expires: 08/06/2025 [facility] Comment on above: Expected: 05/07/2025 , Expires: 08/06/2025 Start: 05-07-2025 End: 08-06-2025 LIPID PANEL, NONFASTING LIPID PANEL, NONFASTING Lab Routine Essential hypertension Mixed hyperlipidemia Expected: 05/07/2025, Expires: 08/06/2025 [facility] Comment on above: Expected: 05/07/2025 , Expires: 08/06/2025 Start: 05-07-2025 End: 08-06-2025 Magnesium [Mass/volume] in Serum or Plasma MAGNESIUM Lab Routine GERD without esophagitis Medication management Expected: 05/07/2025, Expires: 08/06/2025 [facility] Comment on above: Expected: 05/07/2025 , Expires: 08/06/2025 Start: 05-07-2025 End: 08-06-2025 Thyrotropin [Units/volume] in Serum or Plasma THYROID STIMULATING HORMONE Lab Routine Postprocedural hypothyroidism Expected: 05/07/2025, Expires: 08/06/2025 [facility] Comment on above: Expected: 05/07/2025 , Expires: 08/06/2025 Start: 05-07-2025 End: 08-06-2025 Urinalysis complete panel - Urine URINALYSIS, WITH MICROSCOPIC Lab Routine Essential hypertension Mixed hyperlipidemia Expected: 05/07/2025, Expires: 08/06/2025 [facility] Comment on above: Expected: 05/07/2025 , Expires: 08/06/2025 Start: 05-07-2025 ambulatory Ambulatory Facility:[facility] Start: 03-18-2025 Annual PCP Team Commercial Fisher shahana Disease Visit Annual PCP Team Chronic Disease Visit [facility] Start: 03-13-2025 Screening for malign ant neoplasm of breast Mammogram Screening [facility] Start: 02-12-2025 End: 02-12-2025 Patient encounter procedure 02/12/2025 11:15 AM EDT Office Visit [facility] [address] [address] Elder Chao PA-C [address] [place] [address] Follow up, checking in and saying HI! :) [facility] Comment on above: Follow up, checking in and saying HI! :) Start: 11-26-2024 End: 11-26-2024 Patient encounter procedure 11/26/2024 7:00 AM EST Office Visit OB/Gynecology [address] [place] [address] Kady Sol APRN.SCALE RECLAMATION TENDER [address] [place] [address] f/u in 1 year for annual BATH MIXER exam [facility]/Gy[facility]cology Comment on above: f/u in 1 year for an nual BATH MIXER exam Start: 11-21-2024 End: 11-21-2024 Patient encounter procedure 11/21/2024 9:40 AM EST Office Visit [facility] [address] [facility] [place] [address] Isael Fish MD [address] [facility] [place] [address] 6 month follow up [facility] [place] Comment on above: 6 month follow up Start: 11-18-2024 End: 11-18-2024 Follow-up encounter 11/18/2024 2:40 PM EST [facility] [address] [facility] [place] [address] Isael Fish MD [address] [facility] [place] [address] General follow up [facility] Comment on above: General follow up Start: 09-23-2024 End: 09-23-2024 Patient encounter procedure 09/23/2024 2:40 PM EST Office Visit [facility] [address] [facility] [place], [place] [id number] Isael Fish MD [address] [place] [address] 6 month follow up [facility] Comment on above: 6 month follow up Start: 09-11-2024 Annual PCP Team Commercial Fisher shahana Disease Visit Annual PCP Team Chronic Disease Visit [facility] Start: 09-04-2024 End: 12-04-2024 LIPID PANEL, NONFASTING LIPID PANEL, NONFASTING Lab Routine Essential hypertension Mixed hyperlipidemia Expected: 09/04/2024, Expires: 12/04/2024 [facility] Comment on above: Expected: 09/04/2024 , Expires: 12/04/2024 Start: 09-04-2024 End: 12-04-2024 Thyrotropin [Units/volume] in Serum or Plasma THYROID STIMULATING HORMONE Lab Routine Postprocedural hypothyroidism Expected: 09/04/2024, Expires: 12/04/2024 [facility] Comment on above: Expected: 09/04/2024 , Expires: 12/04/2024 Start: 06-16-2024 End: 06-16-2024 Patient encounter procedure 06/16/2024 4:00 PM EDT Office Visit OB/Gynecology [address] [place] [address] Kady Sol, 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 TENDER [address] [place] [address] f/u in 1 year for annual BATH MIXER exam OB/Gynecology Comment on above: f/u in 1 year for an nual BATH MIXER exam Start: 06-07-2024 Covid-19 Vaccine ( season) Covid-19 Vaccine ( season) [facility] Start: 06-07-2024 Influenza vaccination Influenza Vacc ine (#1) [facility] Start: 04-21-2024 End: 04-21-2024 Patient encounter procedure 04/21/2024 4:00 PM EDT Office Visit OB/Gynecology [address] [place] [address] Kady Sol, 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 TENDER [address] [place] [address] f/u in 1 year for annual BATH MIXER exam [facility]/Gy[facility]cology Comment on above: f/u in 1 year for an nual BATH MIXER exam Start: 04-20-2024 HPV TESTING HPV TESTING [facility] Start: 04-20-2024 PAP TESTING PAP TESTING [facility] Start: 03-18-2024 End: 03-18-2024 Patient encounter procedure 03/18/2024 4:00 PM EDT [facility] [place] [address] [facility] [place] [address] Isael Fish MD [address] [facility] [place] [address] Physical [facility] [place] Comment on above: Physical Start: 03-18-2024 End: 06-17-2024 Folate [Mass/volume] in Serum or Plasma FOLATE, SERUM Lab Routine Numbness and tingling of left leg Expected: 03/18/2024, Expires: 06/17/2024 [facility] Work Phone: Comment on above: Expected: 03/18/2024 , Expires: 06/17/2024 Start: 03-06-2024 ANNUAL PCP TEAM ENROLLMENT MANAGEMENT MANAGER SHAHANA DISEASE VISIT ANNUAL PCP TEAM CHRONIC DISEASE VISIT [facility] Start: 03-03-2024 End: 03-03-2024 Patient encounter procedure 03/03/2024 4:00 PM EDT Office Visit OB/Gynecology [address] [place] [address] Kady Sol APRN.SCALE RECLAMATION TENDER [address] [place] [address] f/u in 1 year for annual BATH MIXER exam [facility]Gy[facility]cology Comment on above: f/u in 1 year for an nual BATH MIXER exam Start: 02-28-2024 End: 05-29-2024 CBC W Auto Differential panel - Blood CBC + DIFF Lab Routine Postprocedural hypothyroidism Generalized anxiety disorder Expected: 02/28/2024, Expires: 05/29/2024 [facility] Work Phone: Comment on above: Expected: 02/28/2024 , Expires: 05/29/2024 Start: 02-28-2024 End: 05-29-2024 Cobalamin (Vitamin B12) [Mass/volume] in Serum or Plasma VITAMIN B12 BLOOD Lab Routine GERD without esophagitis Medication management Expected: 02/28/2024, Expires: 05/29/2024 [facility] Work Phone: Comment on above: Expected: 02/28/2024 , Expires: 05/29/2024 Start: 02-28-2024 End: 05-29-2024 Comprehensive metabolic 2000 panel - Serum or Plasma COMP METABOLIC PANEL Lab Routine Essential hypertension Mixed hyperlipidemia Expected: 02/28/2024, Expires: 05/29/2024 [facility] Work Phone: Comment on above: Expected: 02/28/2024 , Expires: 05/29/2024 Start: 02-28-2024 End: 05-29-2024 Hemoglobin A1c in Blood HGB A1C Lab Routine Encounter for screening for diabetes mellitus Expected: 02/28/2024, Expires: 05/29/2024 [facility] Work Phone: Comment on above: Expected: 02/28/2024 , Expires: 05/29/2024 Start: 02-28-2024 End: 05-29-2024 LIPID PANEL, NONFASTING LIPID PANEL, NONFASTING Lab Routine Essential hypertension Mixed hyperlipidemia Expected: 02/28/2024, Expires: 05/29/2024 [facility] Work Phone: Comment on above: Expected: 02/28/2024 , Expires: 05/29/2024 Start: 02-28-2024 End: 05-29-2024 Magnesium [Mass/volume] in Serum or Plasma MAGNESIUM BLD Lab Routine GERD without esophagitis Medication management Expected: 02/28/2024, Expires: 05/29/2024 [facility] Work Phone: Comment on above: Expected: 02/28/2024 , Expires: 05/29/2024 Start: 02-28-2024 End: 05-29-2024 Thyrotropin [Units/volume] in Serum or Plasma TSH BLD Lab Routine Postprocedural hypothyroidism Expected: 02/28/2024, Expires: 05/29/2024 [facility] Work Phone: Comment on above: Expected: 02/28/2024 , Expires: 05/29/2024 Start: 02-28-2024 End: 05-29-2024 Urinalysis complete panel - Urine URINALYSIS, WITH MICROSCOPIC Lab Routine Essential hypertension Mixed hyperlipidemia Expected: 02/28/2024, Expires: 05/29/2024 [facility] Work Phone: Comment on above: Expected: 02/28/2024 , Expires: 05/29/2024 Start: 11-01-2023 End: 01-31-2024 Thyrotropin [Units/volume] in Serum or Plasma TSH BLD Lab Routine Postprocedural hypothyroidism Expected: 11/01/2023, Expires: 01/31/2024 [facility] Work Phone: Comment on above: Expected: 11/01/2023 , Expires: 01/31/2024 Start: 08-23-2023 End: 10-23-2023 Hemoglobin A1c in Blood HGB A1C Lab Routine PCOS (polycystic ovarian syndrome) Expected: 08/23/2023, Expires: 10/23/2023 [facility] Work Phone: Comment on above: Expected: 08/23/2023 , Expires: 10/23/2023 Start: 08-23-2023 End: 10-23-2023 LIPID PANEL, NONFASTING LIPID PANEL, NONFASTING Lab Routine Essential hypertension Mixed hyperlipidemia Expected: 08/23/2023, Expires: 10/23/2023 [facility] Work Phone: Comment on above: Expected: 08/23/2023 , Expires: 10/23/2023 Start: 08-23-2023 End: 10-23-2023 Thyrotropin [Units/volume] in Serum or Plasma TSH BLD Lab Routine Postprocedural hypothyroidism Expected: 08/23/2023, Expires: 10/23/2023 [facility] Work Phone: Comment on above: Expected: 08/23/2023 , Expires: 10/23/2023 Start: 08-15-2023 ANNUAL PCP TEAM ENROLLMENT MANAGEMENT MANAGER SHAHANA DISEASE VISIT ANNUAL PCP TEAM CHRONIC DISEASE VISIT [facility] Start: 2023 Mammography Mammogram Screening [facility] Start: 2023 Screening for malign ant neoplasm of breast Mammogram Screening [facility] Start: 06-20-2023 ANNUAL PCP TEAM ENROLLMENT MANAGEMENT MANAGER SHAHANA DISEASE VISIT ANNUAL PCP TEAM CHRONIC DISEASE VISIT [facility] Start: 06-07-2023 Covid-19 Vaccine () Covid-19 Vaccine () [facility] Start: 06-07-2023 Influenza vaccination [facility] Start: 02-18-2023 End: 04-20-2023 CBC W Auto Differential panel - Blood CBC + DIFF Lab Routine Medication management Expected: 02/18/2023, Expires: 04/20/2023 [facility] Work Phone: Comment on above: Expected: 02/18/2023 , Expires: 04/20/2023 Start: 02-18-2023 End: 04-20-2023 Cobalamin (Vitamin B12) [Mass/volume] in Serum or Plasma VITAMIN B12 BLOOD Lab Routine GERD without esophagitis Medication management Expected: 02/18/2023, Expires: 04/20/2023 [facility] Work Phone: Comment on above: Expected: 02/18/2023 , Expires: 04/20/2023 Start: 02-18-2023 End: 04-20-2023 Comprehensive metabolic 2000 panel - Serum or Plasma COMP METABOLIC PANEL Lab Routine Essential hypertension Expected: 02/18/2023, Expires: 04/20/2023 [facility] Work Phone: Comment on above: Expected: 02/18/2023 , Expires: 04/20/2023 Start: 02-18-2023 End: 04-20-2023 Hemoglobin A1c in Blood HGB A1C Lab Routine Encounter for screening for diabetes mellitus Expected: 02/18/2023, Expires: 04/20/2023 [facility] Work Phone: Comment on above: Expected: 02/18/2023 , Expires: 04/20/2023 Start: 02-18-2023 End: 04-20-2023 LIPID PANEL, NONFASTING LIPID PANEL, NONFASTING Lab Routine Essential hypertension Expected: 02/18/2023, Expires: 04/20/2023 [facility] Work Phone: Comment on above: Expected: 02/18/2023 , Expires: 04/20/2023 Start: 02-18-2023 End: 04-20-2023 Magnesium [Mass/volume] in Serum or Plasma MAGNESIUM BLD Lab Routine GERD without esophagitis Medication management Expected: 02/18/2023, Expires: 04/20/2023 [facility] Work Phone: Comment on above: Expected: 02/18/2023 , Expires: 04/20/2023 Start: 02-18-2023 End: 04-20-2023 Thyrotropin [Units/volume] in Serum or Plasma TSH BLD Lab Routine Postprocedural hypothyroidism Expected: 02/18/2023, Expires: 04/20/2023 [facility] Work Phone: Comment on above: Expected: 02/18/2023 , Expires: 04/20/2023 Start: 02-18-2023 End: 04-20-2023 Urinalysis complete panel - Urine URINALYSIS, WITH MICROSCOPIC Lab Routine Essential hypertension Expected: 02/18/2023, Expires: 04/20/2023 [facility] Work Phone: Comment on above: Expected: 02/18/2023 , Expires: 04/20/2023 Start: 01-31-2023 ANNUAL PCP TEAM ENROLLMENT MANAGEMENT MANAGER SHAHANA DISEASE VISIT ANNUAL PCP TEAM CHRONIC DISEASE VISIT [facility] Start: 12-07-2022 ANNUAL PCP TEAM ENROLLMENT MANAGEMENT MANAGER SHAHANA DISEASE VISIT ANNUAL PCP TEAM CHRONIC DISEASE VISIT [facility] Start: 12-06-2022 End: 02-05-2023 CBC W Auto Differential panel - Blood CBC + DIFF Lab Routine Multiple sclerosis, relapsing-remitting (HCC) Expected: 12/06/2022, Expires: 02/05/2023 [facility] Work Phone: Comment on above: Expected: 12/06/2022 , Expires: 02/05/2023 Start: 12-06-2022 End: 02-05-2023 Hepatic function 1999 panel - Serum or Plasma HEPATIC FUNCTION PNL Lab Routine Multiple sclerosis, relapsing-remitting (HCC) Expected: 12/06/2022, Expires: 02/05/2023 [facility] Work Phone: Comment on above: Expected: 12/06/2022 , Expires: 02/05/2023 Start: 09-21-2022 [facility] Work Phone: Start: 08-07-2022 ONE PNEUMOVAX PRIOR TO AGE 63 ONE PNEUMOVAX PRIOR TO AGE 63 [facility] Comment on above: Postponed from 06/29 (Postponed To Appropriate Date) Start: 07-26-2022 PNEUMOCOCCAL (2 - PPSV23 if available, else PCV20) PNEUMOCOCCAL (2 - PPSV23 if available, else PCV20) [facility] Start: 07-26-2022 PNEUMOCOCCAL (2 - PPSV23 or PCV20) PNEUMOCOCCAL (2 - PPSV23 or PCV20) [facility] Start: 06-20-2022 End: 08-20-2022 Amylase [Enzymatic activity/volume] in Serum or Plasma AMYLASE BLD Lab Routine Epigastric pain Expected: 06/20/2022, Expires: 08/20/2022 [facility] Work Phone: Comment on above: Expected: 06/20/2022 , Expires: 08/20/2022 Start: 06-20-2022 End: 08-20-2022 CBC W Auto Differential panel - Blood CBC + DIFF Lab Routine Epigastric pain RUQ pain Expected: 06/20/2022, Expires: 08/20/2022 [facility] Work Phone: Comment on above: Expected: 06/20/2022 , Expires: 08/20/2022 Start: 06-20-2022 End: 08-20-2022 Hepatic function 2000 panel - Serum or Plasma HEPATIC FUNCTION PNL Lab Routine Epigastric pain RUQ pain Expected: 06/20/2022, Expires: 08/20/2022 [facility] Work Phone: Comment on above: Expected: 06/20/2022 , Expires: 08/20/2022 Start: 06-20-2022 End: 08-20-2022 Lipase [Enzymatic activity/volume] in Serum or Plasma LIPASE BLD Lab Routine Epigastric pain Expected: 06/20/2022, Expires: 08/20/2022 [facility] Work Phone: Comment on above: Expected: 06/20/2022 , Expires: 08/20/2022 Start: 06-07-2022 Influenza vaccination INFLUENZA (#1) [facility] Start: 01-25-2022 BP CONTROLLED (<130/80) BP CONTROLLE D (<130/80) [facility] Start: 12-27-2021 End: 02-26-2022 VITAMIN D 25 HYDROXY [facility] Work Phone: Comment on above: Expected: 12/27/2021 , Expires: 02/26/2022 Start: 10-20-2021 COVID-19 VACCINE (4 - Booster for Moderna series) COVID-19 VACCINE (4 - Booster for Moderna series) [facility] Start: 1985 HEPATITIS B (1 of 3 - 3-dose series) HEPATITIS B (1 of 3 - 3-dose series) [facility] End: 12-21-2025 DBT Breast - bilateral screening JONAS SCREENING W JOSIANE Radiology Routine Encounter for screening mammogram for breast cancer 1 Occurrences starting 11/21/2024 until 12/21/2025 [facility] Work Phone: Comment on above: 1 Occurrences starti ng 11/21/2024 until 12/21/2025 End: 03-06-2025 MG Breast Screening JONAS SCREENING Radiology Routine Encounter for screening mammogram for breast cancer 1 Occurrences starting 02/05/2024 until 03/06/2025 [facility] Work Phone: Comment on above: 1 Occurrences starti ng 02/05/2024 until 03/06/2025 End: 01-29-2026 MR Brain WO and W contrast IV MRI BRAIN WO/W IVCON Radiology Routine Multiple sclerosis, relapsing-remitting (HCC) 1 Occurrences starting 12/30/2024 until 01/29/2026 [facility] Work Phone: Comment on above: 1 Occurrences starti ng 12/30/2024 until 01/29/2026 End: 01-26-2023 Mri brain brain stem w/o w/contrast material MRI BRAIN WO/W IVCON Radiology Routine Multiple sclerosis, relapsing-remitting (HCC) 1 Occurrences starting 12/27/2021 until 01/26/2023 [facility] Work Phone: Comment on above: 1 Occurrences starti ng 12/27/2021 until 01/26/2023 End: 01-05-2024 Mri brain brain stem w/o w/contrast material MRI BRAIN WO/W IVCON Radiology Routine Multiple sclerosis, relapsing-remitting (HCC) 1 Occurrences starting 12/06/2022 until 01/05/2024 [facility] Work Phone: Comment on above: 1 Occurrences starti ng 12/06/2022 until 01/05/2024 Patient Education ED Chest Wall Pain, Costochondritis [facility] Work Phone: Patient referral [facility] Work Phone: Removal impacted cerumen irrigation/lvg unilat AMBULATORY EAR LAVAGE/IRRIGATION Procedures Routine Impacted cerumen of right ear Ordered: 09/11/2023 [facility] Work Phone: Comment on above: Ordered: 09/11/2023 TOXICOLOGY SCREEN, ROUTINE URINE TOXICOLOGY SCREEN, ROUTINE URINE Lab Routine Muscle spasm Medication management Ordered: 03/18/2024 [facility] Comment on above: Ordered: 03/18/2024 End: 10-10-2024 XR RIBS BILATERAL/CHEST 4V XR RIBS BILATERAL/CHEST 4V Radiology Routine Rib pain 1 Occurrences starting 09/11/2023 until 10/10/2024 [facility] Work Phone: Comment on above: 1 Occurrences starti ng 09/11/2023 until 10/10/2024 [facility] Immunizations Immunization Date Immunization Notes Care Provider Delmy farias 08-11-2024 COVID-19 vaccine, unspecified formulation Isael Fish MD Work Phone: [facility] 08-11-2024 influenza virus vaccine, unspecified formulation Isael Fish MD Work Phone: [facility] 07-26-2023 influenza, seasonal, injectable Isael Fish MD Work Phone: [facility] 07-26-2023 influenza virus vaccine, unspecified formulation Isael Fish MD Work Phone: [facility] 08-24-2022 influenza, seasonal, injectable [facility] Work Phone: 08-24-2022 influenza virus vaccine, unspecified formulation Isael Fish MD Work Phone: [facility] 08-17-2022 Covid Moderna Bivale nt Booster [facility] Work Phone: 08-15-2022 pneumococcal Conjuga te, unspecified formulation Isael Fish MD Work Phone: [facility] Work Phone: 08-15-2022 pneumococcal (PCV20) vaccine, 20 valent (PREVNAR 20) Isael Fish MD Work Phone: [facility] 08-25-2021 COVID-19 vaccine, fu ll dose (MODERNA) Elder Chao PA-C Work Phone: [facility] Work Phone: 08-11-2021 influenza, seasonal, injectable Elder Chao PA-C Work Phone: [facility] Work Phone: 08-10-2021 influenza, seasonal, injectable Dr. Isael Fish Work Phone: [facility] Work Phone: 07-26-2021 pneumococcal conjuga te vaccine, 13 valent Elder Chao PA-C Work Phone: [facility] 01-19-2021 COVID-19 vaccine, fu ll dose (MODERNA) Elder Young PA-C Work Phone: [facility] 10-05-2020 COVID-19 vaccine, fu ll dose (MODERNA) Elder Young PA-C Work Phone: [facility] 08-11-2020 influenza, seasonal, injectable Dr. Isael Fish Work Phone: [facility] Work Phone: 08-07-2019 influenza, seasonal, injectable Elder Young PA-C Work Phone: [facility] 07-02-2019 influenza, seasonal, injectable Dr. Isael Fish Work Phone: [facility] Work Phone: 09-03-2018 influenza, injectabl e, quadrivalent, contains preservative Elder Young PA-C Work Phone: [facility] 09-03-2018 tetanus toxoid, redu mercy diphtheria toxoid, and acellular pertussis vaccine, adsorbed Elder Young PA-C Work Phone: [facility] 08-09-2017 influenza, seasonal, injectable Eledr Young PA-C Work Phone: [facility] 08-10-2016 influenza, injectabl e, quadrivalent, contains preservative Elder Young PA-C Work Phone: [facility] Work Phone: 01-05-2013 tetanus toxoid, redu mercy diphtheria toxoid, and acellular pertussis vaccine, adsorbed Isael Fish MD Work Phone: [facility] 05-07-2001 hepatitis B vaccine, pediatric or pediatric/adolescent dosage Isael Fish MD Work Phone: [facility] Payers Date Payer Category Payer Self-pay [id number] 2022 Private Health Insurance [id number] 2022 Private Health Insurance [id number] 2022 Private Health Insurance [id number] 2022 Unknown MMO MMO TPA [id number] 2022-Present [address] [place] [address] PPO [id number] 2019 Unknown [id number] Unknown [id number] Unknown [id number] Unknown [facility] [id number] Unknown [id number] 62 Unknown [id number] 62 Unknown [id number] 62 Unknown [id number] 62 Unknown [id number] 62 Unknown [id number] 62 Unknown [id number] 62 Unknown [id number] 62 Unknown [id number] 62 Unknown [id number] 62 Unknown [id number] 62 Unknown [id number] 62 Unknown [id number] 62 Unknown [id number] 62 Social History Date Type Detail Facility Start: 05-17-2016 End: 06-20-2022 Tobacco smoking status NHIS Never smoked tobacco [facility] Start: 12-27-2021 End: 11-26-2024 Alcohol intake Current drinker of alcohol (finding) [facility] Start: 07-06-2020 End: 02-28-2023 History SDOH Alcohol Frequency 2 [facility] Start: 07-06-2020 End: 09-25-2021 History SDOH Alcohol Std Drinks 1 [facility] Start: 06-04-2018 History SDOH Alcohol Comment seldom [facility] Start: 05-12-2020 End: 02-28-2023 History SDOH Social Connections Phone 5 [facility] Start: 05-12-2020 End: 02-28-2023 History SDOH Social Connections Christian 3 [facility] Start: 12-13-2019 Education 17 [facility] Start: 1985 Sex Assigned At Female [facility] Start: 12-17-2021 End: 08-15-2022 Exposure to SARS-CoV-2 (event) Not sure [facility] Start: 01-16-2022 End: 09-21-2022 Tobacco smoking status NHIS Unknown if ever smoked [facility] Work Phone: Start: 05-17-2016 End: 06-20-2022 Tobacco use and exposure Smokeless tobacco non-user [facility] Work Phone: Start: 02-28-2023 History SDOH Social Connections Phone 4 [facility] Start: 02-28-2023 End: 03-13-2024 History of Social function [facility] Start: 02-28-2023 End: 03-13-2024 Social connection and isolation panel [facility] Do you belong to any clubs or organizations such as orthodox groups, unions, fraternal or athletic groups, or school groups? Yes [facility] Are you now , , , , never or living with a partner? [facility] How often to you hav e a drink containing alcohol? Monthly or less [facility] How many standard dr inks containing alcohol do you have on a typical day? 1 or 2 [facility] How often do you hav e 6 or more drinks on 1 occasion? Never [facility] How hard is it for y ou to pay for the very basics like food, housing, medical care, and heating Not hard at all [facility] Do you feel stress - tense, restless, nervous, or anxious, or unable to sleep at night because your mind is troubled all the time - these days [OSQ] Only a little [facility] (I/We) worried margot aguirre (my/our) food would run out before (I/we) got money to buy more. Never true [facility] In the past 12 month s, was there a time when you were not able to pay the mortgage or rent on time? No [facility] Start: 11-21-2021 Gender identity Identifies as female gender (finding) [facility] Start: 11-21-2021 Sexual orientation Heterosexual (finding) [facility] Do you feel stress - tense, restless, nervous, or anxious, or unable to sleep at night because your mind is troubled all the time - these days [OSQ] To some extent [facility] Functional Status Date Assessment Result Facility 10-22-2014 Are you deaf, or do you have serious difficulty hearing No 10/22/2014 1:38 PM Cristina Lainez MA No [facility] 10-22-2014 Are you blind, or do you have serious difficulty seeing, even when wearing glasses No 10/22/2014 1:38 PM Cristina Lainez MA No [facility] 10-22-2014 Do you have serious difficulty walking or climbing stairs No 10/22/2014 1:38 PM Cristina Lainez MA No [facility] 10-22-2014 Do you have difficul ty dressing or bathing No 10/22/2014 1:38 PM Cristina Lainez MA No [facility] 10-22-2014 Because of a physica l, mental, or emotional condition, do you have difficulty doing errands alone such as visiting a physician's office or shopping No 10/22/2014 1:38 PM Cristina Lainez MA No [facility] Mental Status Date Assessment Result Facility 09-21-2022 Cognitive function Level Of Cons ciousness Awake;Alert;Appropriate;Fol lows Commands [facility] Work Phone: 10-22-2014 Because of a physica l, mental, or emotional condition, do you have serious difficulty concentrating, remembering, or making decisions No 10/22/2014 1:38 PM Cristina Lainez MA No [facility] Clinical Notes 06-04-2018 to 02-12-2025 Elder Chao PA-C - 02/12/2025 11:15 AM EDTTelephone Encounter - Marina Davila LPN - 02/02/2025 11:58 AM EDTTelephone Encounter - Marina Davila LPN - 02/02/2025 11:58 AM EDT Note Date & Type Note Facility 02-12-2025 History of Presen t illness Narrative Images from the original note were not included. 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 - couldn't squeeze a [place] correctly the other day SUBJECTIVE & REVIEW OF SYSTEMS: Neuro-QoL Functions (higher=better functioning) Flowsheet Row [facility] from 12/29/2019 in [facility] Office Visit from 04/25/2018 in [facility] Office Visit from 08/14/2017 in [facility] Upper Extremity Domain T Score 50 56.84 [...] Flowsheet Row [facility] from 12/29/2019 in [facility] Office Visit from 04/25/2018 in [facility] Office Visit from 08/14/2017 in [facility] Sleep Domain T Score 60 55.63 54.3 Fatigue Domain T Score 64 64.84 52.3 Anxiety Domain T Score 72 64.58 65.23 Depression Domain T Score 55 50.36 47.97 Stigma Domain T Score 51 50.07 48.56 Emotional Behavior Dyscontrol T Score -- 50.82 47.39 *NeuroQoL is a multi-domain patient-reported quality of life questionnaire. PHQ-9 Flowsheet Row Office Visit from 03/18/2024 in [facility] Office Visit from 03/06/2023 in [facility] PHQ-9 Score 3 7 *PHQ-9 is a questionnaire for depressive symptoms, with scores 0-4 indicating none, 5-9 mild, 10-14 moderate, 15-19 moderately severe, and 20-27 severe symptoms. 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 Trevino PAST SURGICAL HISTORY Procedure Laterality Date 2D ECHO (EXEP) 06/21/2020 EF=40%, mild syst dysf 2D ECHO (EXEP) 04/12/2021 EF=45%, mild syst dysf, trival AR, TI 2D ECHO (EXEP) 08/08/2021 EF=45%, no significant valve disease ANKLE ARTHROSCOPY/SURGERY Right ECHO LVEF 37% ECHOCARDIOGRAM 05/29/2017 LEXISCAN STRESS TEST 06/21/2020 EF=41% , changes consistent with previous AR, no new reversible ischemic areas. 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 Elder Chao PA-C The chart was reviewed for possible participation in the following studies:None documented in this encounter [facility] 02-12-2025 Note HNO ID: [id number] Author: ELDER CHAO PA-C Service: ? 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 - couldn't squeeze a [place] correctly the other day SUBJECTIVE AND REVIEW OF SYSTEMS: Neuro-QoL Functions (higher=better functioning) Flowsheet Row [facility] from 12/29/2019 in [facility] Office Visit from 04/25/2018 in [facility] Office Visit from 08/14/2017 in [facility] Upper Extremity Domain T Score 50 56.84 [...] Flowsheet Row [facility] from 12/29/2019 in [facility] Office Visit from 04/25/2018 in [facility] Office Visit from 08/14/2017 in [facility] Sleep Domain T Score 60 55.63 54.3 Fatigue Domain T Score 64 64.84 52.3 Anxiety Domain T Score 72 64.58 65.23 Depression Domain T Score 55 50.36 47.97 Stigma Domain T Score 51 50.07 48.56 Emotional Behavior Dyscontrol T Score -- 50.82 47.39 *NeuroQoL is a multi-domain patient-reported quality of life questionnaire. PHQ-9 Flowsheet Row Office Visit from 03/18/2024 in [facility] Office Visit from 03/06/2023 in [facility] PHQ-9 Score 3 7 *PHQ-9 is a questionnaire for depressive symptoms, with scores 0-4 indicating none, 5-9 mild, 10-14 moderate, 15-19 moderately severe, and 20-27 severe symptoms. PROMIS-10 Flowsheet Row Office Visit from 11/21/2024 in [facility] Appointment from 11/18/2024 in [facility] Global Physical Health T Score 47.7 47.7 [...] GERD without esophagitis (more content not included)... [facility] 02-02-2025 Telephone encounter Note Pt notified of same via HEATHER. Marina Davila LPN [facility] 02-02-2025 Miscellaneous Notes Pt notified of [...] 2025 9:41 AM documented in this encounter [facility] 02-02-2025 Telephone encounter Note Coreg is prescribed by cardio. All other meds requested have been sent [facility] 02-02-2025 Telephone encounter Note Prescription Refill [...] Demarco LPN February 02, 2025 9:41 AM [facility] 01-22-2025 Note HNO ID: [id number] Author: MARINA DAVILA LPN Service: ? Author Type: LICENSED NURSE Type: Progress Notes Filed: 01/22/2025 07:10 Note Text: Scan on 01/21/2025 4:25 PM by Provider, External, PA-C: Consultation - Cardiology [facility] 01-05-2025 Telephone encounter Note The following [...] capsule by mouth two times a day. [email or web address] Elder Chao PA-C [facility] 01-05-2025 Miscellaneous Notes The following approved [...] capsule by mouth two times a day. [email or web address] Elder Chao PA-C Happy to see her in person. I placed new brain MRI orders. Agree with DMF at [facility] or [facility]. If she is agreeable I can send [...] in 6-12 months documented in this encounter [facility] 01-04-2025 Telephone encounter Note Duplicate encounter, see [facility] from 12/28/24 for response. Closing this encounter. GLO Kim [facility] 01-04-2025 Miscellaneous Notes Duplicate encounter, see [facility] from 12/28/24 for response. Closing this encounter. GLO Kim documented in this encounter [facility] 12-30-2024 Telephone encounter Note Happy to see her in person. I placed new brain MRI orders. Agree with DMF at [facility] or [facility]. If she is agreeable I can send Rx to [facility] for processing. Elder Chao PA-C [facility] 12-29-2024 Telephone encounter Note Patient last seen 02/01/23 for a virtual visit Patient last seen in-person 12/27/2021 Per visit 02/02/24: PLAN: 1. Continue dimethyl fumarate 2. Labs q6-12 months 3. Brain MRI in 1 year or sooner if new symptoms 4. Continue Lyrica 5. Consider spasticity group referral 6. Follow-up in 6-12 months [facility] 11-26-2024 Note HNO ID: [id number] Author: KADY SOL APRN.SCALE RECLAMATION TENDER Service: ? Author Type: Nurse Practitioner Type: Progress Notes Filed: 11/26/2024 09:15 Note Text: Patient declined manager militaryRocio Ho is a 39 year old who [...] pap: Yes, 2017 [facility], HPV positive 01/2018 [facility] benign Last mammogram: 03/2024 normal [facility] Abnormal [...] Living0 SAB0 IAB0 Ectopic0 Multiple0 Live Births0 [employer] History LMP: 11/01/2024 (Approximate), Having periods Age at Menarche: 9 Age at First : Age at Menopause: [employer] History Comments: Sexual Activity: Yes; Male Contraception: [...] (EXEP) 04/12/2021 EF=45%, mild syst dysf, trival AR, TI 2D ECHO (EXEP) 08/08/2021 EF=45%, no significant valve disease ANKLE ARTHROSCOPY/SURGERY Right ECHO LVEF 37% ECHOCARDIOGRAM 05/29/2017 LEXISCAN STRESS TEST 06/21/2020 EF=41% , changes consistent with previous AR, no new reversible ischemic areas. PAST SURGICAL [...] Mother 65 Coronary Artery Disease Father from [place] age 60 other (Sudden ) Father other [...] discussed with the Patient or Patient's Authorized Diet Technician Registered. As applicable, any other physic (more content not included)... 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 Romi is a 39 year old who [...] pap: Yes, 2017 [facility], HPV positive 01/2018 [facility] benign Last mammogram: 03/2024 normal [facility] Abnormal [...] Living0 SAB0 IAB0 Ectopic0 Multiple0 Live Births0 [employer] History LMP: 11/01/2024 (Approximate), Having periods Age at Menarche: 9 Age at First : Age at Menopause: [employer] History Comments: Sexual Activity: Yes; Male Contraception: [...] (EXEP) 04/12/2021 EF=45%, mild syst dysf, trival AR, TI 2D ECHO (EXEP) 08/08/2021 EF=45%, no significant valve disease ANKLE ARTHROSCOPY/SURGERY Right ECHO LVEF 37% ECHOCARDIOGRAM 05/29/2017 LEXISCAN STRESS TEST 06/21/2020 EF=41% , changes consistent with previous AR, no new reversible ischemic areas. PAST SURGICAL [...] Mother 65 Coronary Artery Disease Father from [place] age 60 other (Sudden ) Father other [...] discussed with the Patient or Patient's Authorized Diet Technician Registered. As applicable, any other physician, advance practice provider, medical student, or other health professional student that will be observing or involved in the sensitive examination for educational or training purposes was discussed with the Patient or Authorized Diet Technician Registered. The Patient or Authorized Diet Technician Registered has agreed to proceed with the sensitive [...] external genitalia normal, normal Bartholin's glands, urethra, Bratenahl's glands, no vulvar lesions, no cervical lesions, physiologic discharge present, normal appearing perineal body and perianal region BIMANUAL: uterus normal size, shape and consistency, no adnexal masses, and non-tender RECTOVAGINAL: deferred. NEURO: alert and oriented x3,exam grossly non-focal EXTREMITIES: normal ASSESSMENT/PLAN: 1) Health maintenance: Pap/HPV up to date and due 2025 due to history Mammogram ordered by PCP to be completed at [facility] Nutrition, exercise and routine health maintenance exams reviewed. 2) Contraception: combined hormonal contraceptives. Contraceptive options reviewed and information provided. Discussed semaglutide, contraception and BTB. 3) STD screening: Declined STD check. 4) Follow up one year or sooner as needed Kady Sol APRN.ALANNAH documented in this encounter [facility] 11-21-2024 History of Presen t illness [...] a z-eddie since she was going to [facility]. Patient has been having [...] (EXEP) 04/12/2021 EF=45%, mild syst dysf, trival AR, TI 2D ECHO (EXEP) 08/08/2021 EF=45%, no significant valve disease ANKLE ARTHROSCOPY/SURGERY Right ECHO LVEF 37% ECHOCARDIOGRAM 05/29/2017 LEXISCAN STRESS TEST 06/21/2020 EF=41% , changes consistent with previous AR, no new reversible ischemic areas. PAST SURGICAL [...] Mother 65 Coronary Artery Disease Father from [place] age 60 other (Sudden ) Father other [...] Isael Fish MD documented in this encounter [facility] 11-21-2024 Note HNO ID: [id number] Author: ISAEL FISH MD Service: ? Author [...] a z-eddie since she was going to [facility]. Patient has been having [...] (EXEP) 04/12/2021 EF=45%, mild syst dysf, trival AR, TI 2D ECHO (EXEP) 08/08/2021 EF=45%, no significant valve disease ANKLE ARTHROSCOPY/SURGERY Right ECHO LVEF 37% ECHOCARDIOGRAM 05/29/2017 LEXISCAN STRESS TEST 06/21/2020 EF=41% , changes consistent with previous AR, no new reversible ischemic areas. PAST SURGICAL [...] Mother 65 Coronary Artery Disease Father from [place] age 60 other (Sudden ) Father other [...] mouth daily at (more content not included)... [facility] 11-06-2024 Telephone encounter Note Already addressed in duplicate message. [facility] 11-06-2024 Miscellaneous Notes Already addressed in [...] 2024 9:09 AM documented in this encounter [facility] 11-06-2024 Telephone encounter Note Let patient [...] prescription at the pharmacy Isael Fish MD [facility] 11-06-2024 Miscellaneous Notes Let patient know [...] 2024 8:40 AM documented in this encounter [facility] 11-06-2024 Telephone encounter Note Prescription Refill [...] Yamile Youngblood November 06, 2024 9:09 AM [facility] 11-06-2024 Telephone encounter Note Prescription Refill [...] Demarco LPN November 06, 2024 8:40 AM [facility] 11-05-2024 Note HNO ID: [id number] Author: ISAEL FISH MD Service: ? Author Type: Physician Type: Progress Notes Filed: 11/05/2024 13:49 Note Text: Please let patient know her routine f/u would be better done in person since I wont have a BP check or be able to do an examination so the virtual will be very limited in scope. [facility] 11-05-2024 Note HNO ID: [id number] Author: MARINA DAVILA LPN Service: ? Author Type: LICENSED NURSE Type: Progress Notes Filed: 11/05/2024 08:21 Note Text: Labs ordered by Dr Fish. Pt has VV 11/18/[address] Fish. Scan on 11/04/2024 6:35 PM by Provider, VITALIY Vela: Chemistry [facility] 11-05-2024 History of Presen t illness Narrative Labs ordered by Dr Fish. Pt has VV 11/18/[address] Fish. Scan on 11/04/2024 6:35 PM by Provider, Dane, PA-C: Chemistry documented in this encounter [facility] 09-01-2024 Telephone encounter Note Summary: appointment tried calling patient to get her scheduled for a follow up but patients refused appointment [facility] 09-01-2024 Miscellaneous Notes Summary: appointment tried calling patient to get her scheduled for a follow up but patients refused appointment documented in this encounter [facility] 08-31-2024 Telephone encounter Note The following [...] once daily. Authorizing Provider: ISAEL FISH MD [facility] 08-31-2024 Miscellaneous Notes The following approved [...] 2024 8:05 AM documented in this encounter [facility] 08-31-2024 Telephone encounter Note Prescription Refill [...] Peter MA August 31, 2024 8:05 AM [facility] 07-15-2024 Telephone encounter Note Spoke with patient and she is now feeling a little better. Evelina Peter MA [facility] 07-15-2024 Miscellaneous Notes Spoke with patient and she is now feeling a little better. Evelina Peter MA documented in this encounter [facility] 05-29-2024 Telephone encounter Note Annual exam [...] week of placebo pills. Kimberly Plata RN [facility] 05-29-2024 Miscellaneous Notes Annual exam moved [...] Kimberly Plata RN documented in this encounter [facility] 05-29-2024 Telephone encounter Note Appt rescheduled for 11/26/24 at 7am. Kimberly Plata RN [facility] 05-29-2024 Miscellaneous Notes Appt rescheduled for [...] Kimberly Plata RN documented in this encounter [facility] 05-29-2024 Telephone encounter Note Yes, that will be fine. Kady Sol APRN.CNP [facility] 05-29-2024 Telephone encounter Note Patient called [...] put into that spot? Skyla Plaza RN [facility] 05-25-2024 Telephone encounter Note The following approved medication requests have been transmitted electronically. Requested Prescriptions Signed Prescriptions Disp Refills clonazePAM (KLONOPIN) 0.5 mg tablet 270 tablet 0 Sig: Take 1 tablet by mouth three times a day for 90 days. Authorizing Provider: ISALE FISH MD PDMP website checked and validated. All prescriptions have been APPROPRIATELY filled. No suspicious activity was identified. 05/25/2024 by Isael Fish MD [facility] 05-25-2024 Miscellaneous Notes The following approved [...] 2024 10:27 AM documented in this encounter [facility] 05-25-2024 Telephone encounter Note The following approved medication requests have been transmitted electronically. Requested Prescriptions Signed Prescriptions Disp Refills scopolamine (TRANSDERM-SCOP) patch 1.5 mg/72 hr (delivers 1 mg over 3 days) 3 Patch 0 Sig: Apply 1 Patch as directed every 72 hours. Apply patch to skin behind ear 4hrs prior to travel. Isael Fish MD [facility] 05-25-2024 Miscellaneous Notes The following approved medication requests have been transmitted electronically. Requested Prescriptions Signed Prescriptions Disp Refills scopolamine (TRANSDERM-SCOP) patch 1.5 mg/72 hr (delivers 1 mg over 3 days) 3 Patch 0 Sig: Apply 1 Patch as directed every 72 hours. Apply patch to skin behind ear 4hrs prior to travel. Isael Fish MD documented in this encounter [facility] 05-25-2024 Telephone encounter Note Left message for patient to call office to get appointments scheduled and find out what medication Pt needs refill on. Kimberly Plata RN [facility] 05-25-2024 Telephone encounter Note Prescription Refill [...] Stephanie Youngblood May 25, 2024 10:27 AM [facility] 05-04-2024 Note HNO ID: [id number] Author: EVELINA PETER MA Service: ? Author Type: Canoe Maker Type: Progress Notes Filed: 05/04/2024 16:43 Note Text: Scan on 05/01/2024 7:57 AM by ProviderDane PA-C: Consultation - Orthopedics Scan on 05/01/2024 9:22 AM by ProviderDane PA-C: X-ray Evelina Peter MA [facility] 05-04-2024 History of Presen t illness Narrative Scan on 05/01/2024 7:57 AM by Dane Coughlin PA-C: Consultation - Orthopedics Scan on 05/01/2024 9:22 AM by ProviderDane PA-C: X-ray Evelina Peter MA documented in this encounter [facility] 04-22-2024 Telephone encounter Note Patient notified and faxed to Dr. Montero. Evelina Peter MA [facility] 04-22-2024 Miscellaneous Notes Patient notified and faxed to Dr. Montero. Evelina Peter MA Please fax EMG reports to DR. Montero at [place] and let patient know we did this. Patient notified and voiced understanding. Evelina Peter MA Patient does feel it is coming from her back. Her Surgeon was Dr. Jose MARTIN. She also has an appointment with Dr. Montero at [facility]. Evelina Peter MA Images from the original [...] a pain management provider 3) see a vessel specialist ( not sure who did her surgery) Received results of pt's EMG/NCS ordered by pcp. See below. Marina Davila LPN Scan on 04/21/2024 10:16 AM by Provider, VITALIY Vela: Neurology documented in this encounter [facility] 04-22-2024 Telephone encounter Note Please fax EMG reports to DR. Montero at [place] and let patient know we did this. [facility] 04-22-2024 Telephone encounter Note Patient notified and voiced understanding. Evelina Peter MA Patient does feel it is coming from her back. Her Surgeon was Dr. Jose MARTIN. She also has an appointment with Dr. Montero at [facility]. Evelina Peter MA [facility] 04-21-2024 Telephone encounter Note Images from [...] a pain management provider 3) see a vessel specialist ( not sure who did her surgery) [facility] 04-21-2024 Telephone encounter Note Received results of pt's EMG/NCS ordered by pcp. See below. Marina Davila LPN Scan on 04/21/2024 10:16 AM by ProviderDane PA-C: Neurology [facility] 03-26-2024 Telephone encounter Note Received lab results ordered by pcp. Marina Davila LPN Scan on 03/25/2024 5:35 PM by ProviderDane PA-C: Miscellaneous Lab [facility] 03-26-2024 Miscellaneous Notes Received lab results ordered by pcp. Marina Davila LPN Scan on 03/25/2024 5:35 PM by ProviderDane PA-C: Miscellaneous Lab documented in this encounter [facility] 03-24-2024 Telephone encounter Note Pt notified. Viviana Hill MA [facility] 03-24-2024 Miscellaneous Notes Pt notified. Viviana Hill MA Let patient know folate level was ok. Received labs results from [facility] ordered by pcp. Marina Davila LPN Scan on 03/23/2024 12:10 PM by ProviderDane PA-C: Chemistry documented in this encounter [facility] 03-24-2024 Telephone encounter Note Let patient know folate level was ok. [facility] 03-24-2024 Telephone encounter Note Received labs results from [facility] ordered by pcp. Marina Davila LPN Scan on 03/23/2024 12:10 PM by ProviderDane PA-C: Chemistry [facility] 03-18-2024 Instructions Isael Fish MD - 03/18/2024 5:26 PM EDT Please get labs done on or after 09/04/2024 prior to your next visit. documented in this encounter [facility] 03-18-2024 Note HNO ID: [id number] Author: ISAEL FISH MD Service: ? Author [...] (EXEP) 04/12/2021 EF=45%, mild syst dysf, trival AR, TI 2D ECHO (EXEP) 08/08/2021 EF=45%, no significant valve disease ANKLE ARTHROSCOPY/SURGERY Right ECHO LVEF 37% ECHOCARDIOGRAM 05/29/2017 LEXISCAN STRESS TEST 06/21/2020 EF=41% , changes consistent with previous AR, no new reversible ischemic areas. PAST SURGICAL [...] Mother 65 Coronary Artery Disease Father from [place] age 60 other (Sudden ) Father other [...] mg) by mout (more content not included)... [facility] 03-18-2024 History of Presen t illness [...] Obesity, Class III, BMI 40-49.9 (morbid obesity) ([facility]) 08/15/2022 PCOS (polycystic ovarian syndrome) 03/14/2016 PMH - PAST MEDICAL HISTORY OF radioactive iiodine Postprocedural hypothyroidism 04/23/2003 Seasonal allergies 07/26/2021 Takotsubo cardiomyopathy 03/14/[address] Trevino Previous Surgical History PAST SURGICAL HISTORY Procedure Laterality Date 2D ECHO (EXEP) 06/21/2020 EF=40%, mild syst dysf 2D ECHO (EXEP) 04/12/2021 EF=45%, mild syst dysf, trival AR, TI 2D ECHO (EXEP) 08/08/2021 EF=45%, no significant valve disease ANKLE ARTHROSCOPY/SURGERY Right ECHO LVEF 37% ECHOCARDIOGRAM 05/29/2017 LEXISCAN STRESS TEST 06/21/2020 EF=41% , changes consistent with previous AR, no new reversible ischemic areas. PAST SURGICAL [...] Mother 65 Coronary Artery Disease Father from [place] age 60 other (Sudden ) Father other [...] - FOLATE, SERUM - check NCS/EMG at [facility] F/u 6 months check TSH, lipid Isael Fish MD documented in this encounter [facility] 03-17-2024 Note HNO ID: [id number] Author: KARRI PADILLA LPN Service: ? Author Type: LICENSED NURSE Type: Progress Notes Filed: 03/17/2024 17:51 Note Text: Scan on 03/13/2024 1:15 PM by Provider, External, PA-C: Mammography [facility] 03-17-2024 History of Presen t illness Narrative Scan on 03/13/2024 1:15 PM by ProviderDane PAKierraC: Mammography documented in this encounter [facility] 03-10-2024 Note HNO ID: [id number] Author: KARRI PADILLA LPN Service: ? Author [...] 9:09 AM by Provider, External, PA-C: Hematology [facility] 03-10-2024 History of Presen t illness Narrative Scan on 03/10/2024 9:40 AM by Provider, External, PA-C: Chemistry Scan on 03/10/2024 9:32 AM by Provider, External, PA-C: Chemistry Scan on 03/10/2024 9:23 AM by Provider, External, PA-C: Chemistry Scan on 03/10/2024 9:14 AM by Provider, External, PA-C: Hematology Scan on 03/10/2024 9:09 AM by Provider, External, PA-C: Hematology documented in this encounter [facility] 01-27-2024 History of Presen t illness Narrative Scan on 01/24/2024 4:34 PM by Provider, Dane, PA-C: Chemistry Lovely Ch LPN documented in this encounter [facility] 04-19-2024 Miscellaneous Notes Pt notified that all prescriptions requested except carvedilol was sent to the pharmacy & she needs to check with cardio for that refill. Pt notified via [employer]. Lovely Ch LPN Let patient know her carvedilol comes from [facility] [facility]. Rest of her meds were refilled. The [...] Alex Geller LPN. documented in this encounter [facility] 01-24-2024 Miscellaneous Notes PDMP website checked and validated. All prescriptions have been APPROPRIATELY filled. No suspicious activity was identified. 01/24/2024 by Rich Nicholson APRN.SCALE RECLAMATION TENDER The following approved medication requests have been transmitted electronically. Requested Prescriptions Signed Prescriptions Disp Refills baclofen 10 mg tablet 90 tablet 1 Sig: Take 1 tablet by mouth once daily as needed. Authorizing Provider: RICH NICHOLSON pregabalin (LYRICA) 50 mg capsule 180 capsule 1 Sig: Take 1 capsule by mouth two times a day for 90 days. Authorizing Provider: RICH NICHOLSON APRN.SCALE RECLAMATION TENDER Source : mychart from patient requesting refill. [...] None Jasmin Bellamy documented in this encounter [facility] 01-24-2024 Miscellaneous Notes The following approved medication requests have been transmitted electronically. Requested Prescriptions Signed Prescriptions Disp Refills dimethyl fumarate (TECFIDERA) [address] 180 capsule 3 Sig: Take 1 capsule (240 mg) by mouth two times a day. Authorizing Provider: RICH NICHOLSON APRN.SCALE RECLAMATION TENDER Source : mychart from patient requesting refill. Delivery : e-script Requested Prescriptions Pending Prescriptions Disp Refills dimethyl fumarate (TECFIDERA) [address] 180 capsule 3 Sig: Take 1 capsule (240 mg) by mouth two times a day. DX : Patient last seen: 02/01/2023 Next Appointment : None Jasmin Bellamy documented in this encounter [facility] 11-11-2023 Miscellaneous Notes [facility]: 09/11/23-6 month F/U with PCP No OV to [facility] since for COVID sx/dx. Elizabet Gregg MA documented in this encounter [facility] 09-13-2023 Miscellaneous Notes Pt notified. Viviana Hill Ma Let patient know her rib x-rays were ok. Received results of pt's x-ray done at [facility] ordered by Dr Fish. Scan on 09/13/2023 11:08 AM by Provider, VITALIY Vela: X-ray documented in this encounter [facility] 09-11-2023 History of Presen t illness [...] Any recent ER/hospital visits? None Patient sees [facility] - last visit 02/2023 Patient sees Neurology for MS Patient last saw Cardiology - [facility] 02/2023 Past medical history, appointments, [...] (EXEP) 04/12/2021 EF=45%, mild syst dysf, trival AR, TI 2D ECHO (EXEP) 08/08/2021 EF=45%, no significant valve disease ANKLE ARTHROSCOPY/SURGERY Right ECHO LVEF 37% ECHOCARDIOGRAM 05/29/2017 LEXISCAN STRESS TEST 06/21/2020 EF=41% , changes consistent with previous AR, no new reversible ischemic areas. PAST SURGICAL [...] Mother 65 Coronary Artery Disease Father from [place] age 60 other (Sudden ) Father other [...] which included preparing to see the patient, [id number] patient care, completing clinical documentation, performing a medically appropriate examination, counseling and educating the patient/family/caregiver and ordering medications, tests, or procedures. Isael Fish MD documented in this encounter [facility] 09-10-2023 Miscellaneous Notes Spoke with pt [...] Last refill; 02/2023 documented in this encounter [facility] 09-09-2023 Miscellaneous Notes The following approved [...] None Jasmin Bellamy documented in this encounter [facility] 09-09-2023 Miscellaneous Notes The following approved [...] Last refill; 05/2023 documented in this encounter [facility] 09-02-2023 Miscellaneous Notes The following approved [...] first thing in the morning. Please send [facility]. Patient indicated that she has notices more [...] OK to wait for Dr Fish or Romi to evaluate at their return Bill Young MD Dr Young can you review labs Dr Fish ordered? Pt's TSH is 11.00. Dr Fish is out until 09/04 and not sure if Romi will be in on Sat. Thank you! Marina Davila LPN Received pt's labs done at [facility]. See links below. Marina Davila LPN Scan on 08/30/2023 10:36 AM by Provider, ExternalVITALIY: Miscellaneous Lab Scan on 08/30/2023 9:42 AM by Provider, ExternalVITALIY: Chemistry Scan on 08/30/2023 9:09 AM by Provider, ExternalVITALIY: Chemistry documented in this encounter [facility] 06-13-2023 History of Presen t illness Narrative MRI results and Lab results attached below: View External Labs - Miscellaneous Lab [ID [id number]] View External Imaging - MRI [ID [id number]] Viviana Hill Ma documented in this encounter [facility] 05-22-2023 Miscellaneous Notes Last refill 01/07/23 Qty: 90 with 1 refill [facility] 03/06/23 NOV 09/11/23 Marina Davila LPN documented in this encounter [facility] 05-15-2023 Miscellaneous Notes The following approved [...] Flower Schroeder LPN documented in this encounter [facility] 03-06-2023 Instructions Isael Fish MD - 03/06/2023 5:06 PM EDT Please get labs done on or after 08/23/2023 prior to your next visit. documented in this encounter [facility] 03-06-2023 History of Presen t illness [...] (EXEP) 04/12/2021 EF=45%, mild syst dysf, trival AR, TI 2D ECHO (EXEP) 08/08/2021 EF=45%, no significant valve disease ANKLE ARTHROSCOPY/SURGERY Right ECHO LVEF 37% ECHOCARDIOGRAM 05/29/2017 LEXISCAN STRESS TEST 06/21/2020 EF=41% , changes consistent with previous AR, no new reversible ischemic areas. PAST SURGICAL [...] Mother 65 Coronary Artery Disease Father from [place] age 60 other (Sudden ) Father other [...] diet of 1000 mg/day for under 50, 4244-1247 mg/day for 50+ - Discussed need and [...] which included preparing to see the patient, [id number] patient care, completing clinical documentation, performing a medically appropriate examination, counseling and educating the patient/family/caregiver and ordering medications, tests, or procedures. Isael Fish MD documented in this encounter [facility] 02-18-2023 Miscellaneous Notes Faxed. Evelina Peter MA Labs ready to be faxed to [facility] for patient. documented in this encounter [facility] 02-12-2023 History of Presen t illness Narrative Scan on 02/12/2023 12:37 PM by External Provider, VITALIY: Consultation - Cardiology documented in this encounter [facility] 02-04-2023 Miscellaneous Notes Faxed. Evelina Peter MA Order ready to be faxed. documented in this encounter [facility] 02-01-2023 History of Presen t illness Narrative Images from the original note were not included. [facility] FOR [facility]ULTIPLE SCLEROSIS FOLLOWUP/ESTABLISHED PATIENT VIRTUAL VISIT PRINCIPAL NEUROLOGIC DIAGNOSIS: Multiple Sclerosis [facility] FOLLOWUP VISIT MS DISEASE HISTORY: Date [...] visit. Either the patient or their legal new accounts banking representative has been informed of the risks [...] Flowsheet Row [facility] from 12/29/2019 in [facility] Office Visit from 04/25/2018 in [facility] Office Visit from 08/14/2017 in [facility] Upper Extremity Domain T Score 50 56.84 [...] Flowsheet Row [facility] from 12/29/2019 in [facility] Office Visit from 04/25/2018 in [facility] Office Visit from 08/14/2017 in [facility] Sleep Domain T Score 60 55.63 54.3 [...] (EXEP) 04/12/2021 EF=45%, mild syst dysf, trival AR, TI 2D ECHO (EXEP) 08/08/2021 EF=45%, no significant valve disease ANKLE ARTHROSCOPY/SURGERY Right ECHO LVEF 37% ECHOCARDIOGRAM 05/29/2017 LEXISCAN STRESS TEST 06/21/2020 EF=41% , changes consistent with previous AR, no new reversible ischemic areas. 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 Elder Chao PA-C documented in this encounter [facility] 01-23-2023 History of Presen t illness Narrative Scan on 01/18/2023 4:34 PM by External Provider: Chemistry Scan on 01/18/2023 4:49 PM by External Provider: MRI Scan on 01/18/2023 6:52 PM by External Provider: FAHEEM Peter MA documented in this encounter [facility] 01-10-2023 History of Presen t illness Narrative Scan on 01/09/2023 1:36 PM by External Provider: Miscellaneous Lab Scan on 01/09/2023 1:19 PM by External Provider: Miscellaneous Lab documented in this encounter [facility] 01-07-2023 Miscellaneous Notes Patient has been [...] Last refill; 06/2022 documented in this encounter [facility] 12-25-2022 Miscellaneous Notes The following approved [...] Scheduling. Jasmin Bellamy documented in this encounter [facility] 12-19-2022 Miscellaneous Notes The following approved [...] None Jasmin Bellamy documented in this encounter [facility] 12-15-2022 Miscellaneous Notes The following approved medication requests have been transmitted electronically. Requested Prescriptions Signed Prescriptions Disp Refills meclizine (ANTIVERT) 12.5 mg tab 90 tablet 1 Sig: Take 1 tablet by mouth three times daily as needed (dizziness). Isael Fish MD documented in this encounter [facility] 11-21-2022 Miscellaneous Notes TC to patient who verbalized understanding and has no questions at this time. EFRA Nunez Left message for patient to contact office. Evelina Peter MA Let patient know her uric acid level was normal. Scan on 11/16/2022 10:08 AM by External Provider: Chemistry Please review. Ordering - kleber Peter MA documented in this encounter [facility] 11-16-2022 History of Presen t illness Narrative Scan on 11/16/2022 10:08 AM by External Provider: Chemistry documented in this encounter [facility] 10-15-2022 Miscellaneous Notes Faxed and patient notified. Evelina Peter MA order placed. Please place consult Dr. Walton fax: [phone] documented in this encounter [facility] 09-21-2022 Miscellaneous Notes The following approved [...] and did much better. Local pharmacy is [facility]. Routing to Elder Chao PA-C. Molly Palomino RN Spoke with Elder Chao PA-C, patient will need evaluation in ER to evaluate symptoms. Called patient, no answer. Message left indicating MyChart response will be sent with recommendations. Molly Palomino RN documented in this encounter [facility] 08-28-2022 Miscellaneous Notes The following approved medication requests have been transmitted electronically. Requested Prescriptions Signed Prescriptions Disp Refills losartan (COZAAR) 50 mg tablet 90 tablet 1 Sig: Take 1 tablet by mouth once daily. Isael Fish MD Please see pt's message. Marina Davila LPN documented in this encounter [facility] 08-15-2022 Instructions Isael Fish MD - 08/15/2022 6:30 PM EST Please send Dr. Kleber alva My Chart message in a week or two with some home blood pressure readings documented in this encounter [facility] 08-15-2022 History of Presen t illness [...] (EXEP) 04/12/2021 EF=45%, mild syst dysf, trival AR, TI 2D ECHO (EXEP) 08/08/2021 EF=45%, no significant valve disease ANKLE ARTHROSCOPY/SURGERY Right ECHO LVEF 37% ECHOCARDIOGRAM 05/29/2017 LEXISCAN STRESS TEST 06/21/2020 EF=41% , changes consistent with previous AR, no new reversible ischemic areas. PAST SURGICAL [...] Mother 65 Coronary Artery Disease Father from [place] age 60 other (Sudden ) Father other [...] - will refer to Why weight at [facility]. 11. Encounter for immunization - ICD9: V03.89, [...] Isael Fish MD documented in this encounter [facility] 08-15-2022 Miscellaneous Notes Patient has been [...] advise. Soniya Cohn documented in this encounter [facility] 08-07-2022 Miscellaneous Notes Lab order faxed to [facility] lab Printed of TSH order that needs faxed to [facility]. This is the only lab needed. documented in this encounter [facility] 07-31-2022 History of Presen t illness Narrative Received completed FMLA Form and mailed back to patient as directed. Copy to be scanned to chart. Type of form: FMLA Form received via mail When form is completed, Mail form to BACK TO PATIENT Form has been forwarded to Nurse Practictioner: Elder Chao mailbox Jasmin Bellamy documented in this encounter [facility] 07-24-2022 Miscellaneous Notes Prilosec was refilled #[id number] with 2 refills on 06/20/22 to [facility] pharmacy. Pt notified via [facility] to check with pharmacy for refills. Viviana Hill Ma documented in this encounter [facility] 06-25-2022 Miscellaneous Notes Pt notified of same. Marina Davila LPN Let patient know her CBC, liver functions and pancreatic functions were all normal. documented in this encounter [facility] 06-20-2022 History of Presen t illness [...] (EXEP) 04/12/2021 EF=45%, mild syst dysf, trival AR, TI 2D ECHO (EXEP) 08/08/2021 EF=45%, no significant valve disease ANKLE ARTHROSCOPY/SURGERY Right ECHO LVEF 37% ECHOCARDIOGRAM 05/29/2017 LEXISCAN STRESS TEST 06/21/2020 EF=41% , changes consistent with previous AR, no new reversible ischemic areas. PAST SURGICAL [...] Mother 65 Coronary Artery Disease Father from [place] age 60 other (Sudden ) Father other [...] Isael Fish MD documented in this encounter [facility] 06-18-2022 Miscellaneous Notes Patient notified and scheduled. Evelina Peter MA Please contact patient and advise her I would like her to see me or Bing to eval the RUQ pain. This could be gal bladder. We can then print off any labs orders she needs and reschedule her appt for Oct at that time. documented in this encounter [facility] 05-02-2022 Miscellaneous Notes Patient has been [...] Rich Castellanos Pss documented in this encounter [facility] 04-19-2022 Miscellaneous Notes The following approved [...] None Jasmin Bellamy documented in this encounter [facility] 04-13-2022 Miscellaneous Notes Upon review of the chart. The medication requested for Coreg is prescribed by cardio. Evelina Peter MA documented in this encounter [facility] 02-28-2022 History of Presen t illness [...] L0 SAB0 IAB0 Ectopic0 Multiple0 Live Births0 [employer] History LMP: 02/18/2022, Having periods Age at Menarche: Age at First : Age at Menopause: [employer] History Comments: Sexual Activity: Yes; Male Contraception: [...] (EXEP) 04/12/2021 EF=45%, mild syst dysf, trival AR, TI 2D ECHO (EXEP) 08/08/2021 EF=45%, no significant valve disease ANKLE ARTHROSCOPY/SURGERY Right ECHO LVEF 37% ECHOCARDIOGRAM 05/29/2017 LEXISCAN STRESS TEST 06/21/2020 EF=41% , changes consistent with previous AR, no new reversible ischemic areas. PAST SURGICAL [...] Mother 65 Coronary Artery Disease Father from [place] age 60 other (Sudden ) Father COPD [...] external genitalia normal, normal Bartholin's glands, urethra, Bratenahl's glands, no vulvar lesions, no cervical lesions, [...] Kady Sol APRN.ALANNAH documented in this encounter [facility] 01-15-2022 Miscellaneous Notes The following approved [...] Rosie Tamez RN documented in this encounter [facility] 01-15-2022 Miscellaneous Notes Patient has been [...] Rosie Tamez RN documented in this encounter [facility] 12-27-2021 History of Presen t illness Narrative Images from the original note were not included. [facility] FOR MULTIPLE SCLEROSIS FOLLOWUP/ESTABLISHED PATIENT VISIT PRINCIPAL NEUROLOGIC DIAGNOSIS: Multiple Sclerosis [facility] FOLLOWUP VISIT MS DISEASE HISTORY: Date of [...] of the year - promoted working in [employer] last year Has taken a total of [...] REVIEW OF SYSTEMS: Neuro-QoL Functions (higher=better functioning) [facility] from 12/29/2019 in [facility] Office Visit from 04/25/2018 in [facility] Office Visit from 08/14/2017 in [facility] Upper Extremity Domain T Score 50 56.84 50.03 Lower Extremity Domain T Score 57 62.28 62.28 Cognitive Function Domain T Score 37 46.85 46.85 Positive Affect Well Being T Score 63.61 57.39 Ability To Participate In Social Roles T Score 42 47.04 54.53 Satisfaction With Social Roles T Score 41 50.14 49.2 Neuro-QoL Symptoms (higher=worse symptoms) [facility] from 12/29/2019 in [facility] Office Visit from 04/25/2018 in [facility] Office Visit from 08/14/2017 in [facility] Sleep Domain T Score 60 55.63 54.3 Fatigue Domain T Score 64 64.84 52.3 Anxiety Domain T Score 72 64.58 65.23 Depression Domain T Score 55 50.36 47.97 Stigma Domain T Score 51 50.07 48.56 Emotional Behavior Dyscontrol T Score 50.82 47.39 *NeuroQoL is a multi-domain patient-reported quality of life questionnaire. PHQ-9 [facility] from 09/27/[address] [facility] from 07/06/2020 in [facility] PHQ-9 Score 5 8 *PHQ-9 is a questionnaire for depressive symptoms, with scores 0-4 indicating none, 5-9 mild, 10-14 moderate, 15-19 moderately severe, and 20-27 severe symptoms. PROMIS-10 Office Visit from 12/07/[address] [facility] from 09/27/2021 in [facility] Global Physical Health T Score 42.3 47.7 [...] (EXEP) 04/12/2021 EF=45%, mild syst dysf, trival AR, TI 2D ECHO (EXEP) 08/08/2021 EF=45%, no significant valve disease ANKLE ARTHROSCOPY/SURGERY Right ECHO LVEF 37% ECHOCARDIOGRAM 05/29/2017 LEXISCAN STRESS TEST 06/21/2020 EF=41% , changes consistent with previous AR, no new reversible ischemic areas. 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 Elder Chao PA-C documented in this encounter [facility] 06-04-2018 History of Past i llness Narrative Problem Noted Date Resolved Date Chest pain 06/04/2018 documented as of this encounter (statuses as of 12/27/2021) [address]2018 History of Past illness Narrative* Problem Noted Date Resolved Date Chest pain 06/04/2018 documented as of this encounter (statuses as of 01/15/2022) [address]2018 History of Past illness Narrative* Problem Noted Date Resolved Date Chest pain 06/04/2018 documented as of this encounter (statuses as of 01/16/2022) [address]2018 History of Past illness Narrative* Problem Noted Date Resolved Date Chest pain 06/04/2018 documented as of this encounter (statuses as of 02/28/2022) [address]2018 History of Past illness Narrative* Problem Noted Date Resolved Date Chest pain 06/04/2018 documented as of this encounter (statuses as of 04/13/2022) [address]2018 History of Past illness Narrative* Problem Noted Date Resolved Date Chest pain 06/04/2018 documented as of this encounter (statuses as of 04/19/2022) [address]2018 History of Past illness Narrative* Problem Noted Date Resolved Date Chest pain 06/04/2018 documented as of this encounter (statuses as of 05/03/2022) [address]2018 History of Past illness Narrative* Problem Noted Date Resolved Date Chest pain 06/04/2018 documented as of this encounter (statuses as of 05/24/2022) [address]2018 History of Past illness Narrative* Problem Noted Date Resolved Date Chest pain 06/04/2018 documented as of this encounter (statuses as of 06/18/2022) [address]2018 History of Past illness Narrative* Problem Noted Date Resolved Date Chest pain 06/04/2018 documented as of this encounter (statuses as of 06/22/2022) [address]2018 History of Past illness Narrative* Problem Noted Date Resolved Date Chest pain 06/04/2018 documented as of this encounter (statuses as of 06/25/2022) [address]2018 History of Past illness Narrative* Problem Noted Date Resolved Date Chest pain 06/04/2018 documented as of this encounter (statuses as of 07/24/2022) [address]2018 History of Past illness Narrative* Problem Noted Date Resolved Date Chest pain 06/04/2018 documented as of this encounter (statuses as of 07/31/2022) [place] [address] History of Past illness Narrative* Problem Noted Date Resolved Date Chest pain 06/04/2018 documented as of this encounter (statuses as of 08/07/2022) [place] [address] History of Past illness Narrative* Problem Noted Date Resolved Date Chest pain 06/04/2018 documented as of this encounter (statuses as of 08/15/2022) [address] History of Past illness Narrative* Problem Noted Date Resolved Date Chest pain 06/04/2018 documented as of this encounter (statuses as of 08/17/2022) [address] History of Past illness Narrative* Problem Noted Date Resolved Date Chest pain 06/04/2018 documented as of this encounter (statuses as of 08/28/2022) [address] History of Past illness Narrative* Problem Noted Date Resolved Date Chest pain 06/04/2018 documented as of this encounter (statuses as of 09/21/2022) [address] History of Past illness Narrative* Problem Noted Date Resolved Date Chest pain 06/04/2018 documented as of this encounter (statuses as of 10/15/2022) [address] History of Past illness Narrative* Problem Noted Date Resolved Date Chest pain 06/04/2018 documented as of this encounter (statuses as of 11/16/2022) [address] History of Past illness Narrative* Problem Noted Date Resolved Date Chest pain 06/04/2018 documented as of this encounter (statuses as of 11/21/2022) [place] [address] History of Past illness Narrative* Problem Noted Date Resolved Date Chest pain 06/04/2018 documented as of this encounter (statuses as of 12/07/2022) [address] History of Past illness Narrative* Problem Noted Date Resolved Date Chest pain 06/04/2018 documented as of this encounter (statuses as of 12/15/2022) [address] History of Past illness Narrative* Problem Noted Date Resolved Date Chest pain 06/04/2018 documented as of this encounter (statuses as of 12/19/2022) [address]2018 History of Past illness Narrative* Problem Noted Date Resolved Date Chest pain 06/04/2018 documented as of this encounter (statuses as of 12/24/2022) [address]2018 History of Past illness Narrative* Problem Noted Date Resolved Date Chest pain 06/04/2018 documented as of this encounter (statuses as of 12/25/2022) [address]2018 History of Past illness Narrative* Problem Noted Date Resolved Date Chest pain 06/04/2018 documented as of this encounter (statuses as of 01/07/2023) [address]2018 History of Past illness Narrative* Problem Noted Date Resolved Date Chest pain 06/04/2018 documented as of this encounter (statuses as of 01/10/2023) [address]2018 History of Past illness Narrative* Problem Noted Date Resolved Date Chest pain 06/04/2018 documented as of this encounter (statuses as of 01/11/2023) [place] [address] History of Past illness Narrative* Problem Noted Date Resolved Date Chest pain 06/04/2018 documented as of this encounter (statuses as of 01/24/2023) [address]2018 History of Past illness Narrative* Problem Noted Date Resolved Date Chest pain 06/04/2018 documented as of this encounter (statuses as of 02/01/2023) [address]2018 History of Past illness Narrative* Problem Noted Date Resolved Date Chest pain 06/04/2018 documented as of this encounter (statuses as of 02/04/2023) [address]2018 History of Past illness Narrative* Problem Noted Date Resolved Date Chest pain 06/04/2018 documented as of this encounter (statuses as of 02/16/2023) [place] [address] History of Past illness Narrative* Problem Noted Date Resolved Date Chest pain 06/04/2018 documented as of this encounter (statuses as of 02/19/2023) [place] [address] History of Past illness Narrative* Problem Noted Date Resolved Date Chest pain 06/04/2018 documented as of this encounter (statuses as of 03/07/2023) [place] [address] History of Past illness Narrative* Problem Noted Date Resolved Date Chest pain 06/04/2018 documented as of this encounter (statuses as of 04/02/2023) [address]2018 History of Past illness Narrative* Problem Noted Date Diagnosed Date Resolved Date Chest pain 06/04/2018 documented as of this encounter (statuses as of 05/15/2023) [address]2018 History of Past illness Narrative* Problem Noted Date Diagnosed Date Resolved Date Chest pain 06/04/2018 documented as of this encounter (statuses as of 05/23/2023) [address]2018 History of Past illness Narrative* Problem Noted Date Diagnosed Date Resolved Date Chest pain 06/04/2018 documented as of this encounter (statuses as of 06/14/2023) [address]2018 History of Past illness Narrative* Problem Noted Date Diagnosed Date Resolved Date Chest pain 06/04/2018 documented as of this encounter (statuses as of 09/03/2023) [place] [address] History of Past illness Narrative* Problem Noted Date Diagnosed Date Resolved Date Chest pain 06/04/2018 documented as of this encounter (statuses as of 09/09/2023) [place] [address] History of Past illness Narrative* Problem Noted Date Diagnosed Date Resolved Date Chest pain 06/04/2018 documented as of this encounter (statuses as of 09/10/2023) [address]2018 History of Past illness Narrative* Problem Noted Date Diagnosed Date Resolved Date Chest pain 06/04/2018 documented as of this encounter (statuses as of 09/10/2023) [address]2018 History of Past illness Narrative* Problem Noted Date Diagnosed Date Resolved Date Chest pain 06/04/2018 documented as of this encounter (statuses as of 09/13/2023) [address]2018 History of Past illness Narrative* Problem Noted Date Diagnosed Date Resolved Date Chest pain 06/04/2018 documented as of this encounter (statuses as of 09/13/2023) [address]2018 History of Past illness Narrative* Problem Noted Date Diagnosed Date Resolved Date Chest pain 06/04/2018 documented as of this encounter (statuses as of 11/12/2023) [address] History of Past illness Narrative* Problem Noted Date Diagnosed Date Resolved Date Chest pain 06/04/2018 documented as of this encounter (statuses as of 01/24/2024) [facility]-2018 History of Past illness Narrative* Problem Noted Date Diagnosed Date Resolved Date Chest pain 06/04/2018 documented as of this encounter (statuses as of 01/24/2024) [facility]08-[facility]-2018 History of Past illness Narrative* Problem Noted Date Diagnosed Date Resolved Date Chest pain 06/04/2018 documented as of this encounter (statuses as of 01/24/2024) [facility] N[facility]* Chief Complaint COVID-19 SINUS INFECTION LEFT SIDE THYROID FEELS VERY PROMINENT [facility] COVID/SYMPTOMATIC MS Reason for Visit Acute maxillary sinu sitis, unspecified Acute maxillary sinusitis, unspecified Contact with or suspected exposure to other viral communicable disease [facility] Work Phone: Evaluation note* Diagnosis Vitamin D deficiency- Primary Unspecified vitamin D deficiency Multiple sclerosis, relapsing-remitting (HCC) Multiple sclerosis Spasm Abnormal involuntary movements [facility] Diagnosis Multiple sclerosis (HCC) Multiple sclerosis documented in this encounter [facility] note* Diagnosis Onset Date Resolution Status Acute maxillary sinusitis, unspecified acute Acute maxillary sinusitis, unspecified acute Contact with or suspected ex posure to other viral communicable disease acute [facility] Work Phone: Evaluation note* Diagnosis Encounter for gynecological examination (general) (routine) without abnormal findings- Primary Surveillance for control, oral contraceptives Surveillance of previously prescribed contraceptive pill Obesity (BMI 35.0-39.9 without comorbidity) Obesity, unspecified [facility]* Diagnosis Multiple sclerosis (HCC) Multiple sclerosis [facility] Diagnosis Surveillance for control, oral contraceptives Surveillance of previously prescribed contraceptive pill [facility] Diagnosis Epigastric pain- Primary Abdominal pain, epigastric RUQ pain Abdominal pain, right upper quadrant documented in this encounter [facility] noteNo assessment information [facility] Work Phone: evaluation note* Diagnosis [...] single bacterial disease [facility] Diagnosis Cardiomyopathy, unspecified type (HCC) [facility] Diagnosis Multiple sclerosis, relapsing-remitting (HCC) Multiple sclerosis [facility] Diagnosis Depression, unspecified depression type- Primary [facility]* Diagnosis Multiple sclerosis, relapsing-remitting (HCC)- Primary Multiple sclerosis [facility]* Diagnosis Multiple sclerosis, relapsing-remitting (HCC) Multiple sclerosis [facility]* Diagnosis Multiple sclerosis, relapsing-remitting (HCC) Multiple sclerosis [facility] Diagnosis Multiple sclerosis, relapsing-remitting (HCC) Multiple sclerosis [facility] Diagnosis Skin cancer screening- Primary Screening for malignant neoplasm of the skin [facility]* Diagnosis Essential hypertension- Primary Unspecified essential hypertension GERD without esophagitis Esophageal reflux Postprocedural hypothyroidism Postsurgical hypothyroidism Medication management Encounter for long-term (current) use of other medications Encounter for screening for diabetes mellitus Screening for diabetes mellitus documented in this encounter [facility] note* Diagnosis Well adult exam- Primary [...] syndrome) Polycystic ovaries [facility] Diagnosis Multiple sclerosis (HCC) [facility] Diagnosis Postprocedural hypothyroidism- Primary Postsurgical hypothyroidism documented [facility] Diagnosis Multiple sclerosis, relapsing-remitting (HCC) [facility] Diagnosis Cardiomyopathy, unspecified type (HCC) Multiple sclerosis (HCC) Multiple sclerosis Encounter for immunization- Primary Need for other specified prophylactic vaccination against single bacterial disease documented [facility] Diagnosis Essential hypertension- Primary Unspecified essential [...] ear Impacted cerumen [facility] Diagnosis Multiple sclerosis, relapsing-remitting (HCC) Multiple sclerosis [facility] Diagnosis Cardiomyopathy, unspecified type (HCC) Multiple sclerosis (HCC) Multiple sclerosis [facility] Diagnosis Encounter for screening mammogram for breast cancer documented [facility] Diagnosis Well adult exam- Primary Routine [...] of other medications [facility] Diagnosis Multiple sclerosis (HCC) Multiple sclerosis [facility] Diagnosis Surveillance for control, oral contraceptives Surveillance of previously prescribed contraceptive pill [facility] Diagnosis Multiple sclerosis, relapsing-remitting (HCC) Multiple sclerosis documented in this encounter [facility] note* Diagnosis Cardiomyopathy, unspecified type (HCC) [facility] Diagnosis Multiple sclerosis, relapsing-remitting (HCC) Multiple sclerosis [facility] Diagnosis Multiple sclerosis, relapsing-remitting (HCC) Multiple sclerosis [facility] Diagnosis Multiple sclerosis (HCC) Multiple sclerosis documented in this encounter [facility] note* Diagnosis Multiple sclerosis (HCC) Multiple sclerosis Cardiomyopathy, unspecified type (HCC) documented in this encounter [facility] note* Diagnosis Essential hypertension- Primary Unspecified [...] for diabetes mellitus documented in this encounter [facility] note* Diagnosis Encounter for gynecological examination (general) (routine) without abnormal findings- Primary Surveillance for control, oral contraceptives Surveillance of previously prescribed contraceptive pill documented in this encounter [facility] note* Diagnosis Multiple sclerosis, relapsing-remitting (HCC)- Primary Multiple sclerosis [facility] Diagnosis Cardiomyopathy, unspecified type (HCC) Multiple sclerosis (HCC) Multiple sclerosis [facility] Diagnosis Multiple sclerosis (HCC)- Primary Multiple sclerosis documented in this encounter [facility] for referral (narrative)* Diagnostic Procedure Only (Routine) - Pending Review Specialty Diagnoses / Procedures Referred By Mary elizondo Referred To Contact XR IMAGING Diagnoses Rib pain Procedures XR RIBS BILATERAL/CHEST 4V RADEX RIBS BI W/POSTEROANT CH MINIMUM 4 VIEWS Isael Fish MD [address] [place] [address] [place] [address] Referral ID Status Reason Start Date Expiration Date Visits Requested Visits Authorized [id number] Pending Review Auto-Generat ed Referral 09/11/2023 10/10/2024 1 1 [facility] for referral (narrative)* Diagnostic Procedure Only (Routine) - Pending Review Specialty Diagnoses / Procedures Referred By Mary elizondo Referred To Contact BR IMAGING Diagnoses Encounter for screening mammogram for breast cancer Procedures JONAS SCREENING SCREENING MAMMOGRAPHY BI 2-VIEW BREAST INC CAD Isael Fish MD [address] [place] [address] [facility] Imaging [address] [place] [address] Referral ID Status Reason Start Date Expiration Date Visits Requested Visits Authorized [id number] Pending Review Auto-Generat ed Referral 02/05/2024 03/06/2025 1 1 [facility] Summary Purpose Family History No Family [...] March 03, 2020 2 :26pm Power of Dehydration Unit Operator No March 03, 2020 2:26pm Advance Directive Response Recorded Date/ Time Living Will No March 03, 2020 1 :26pm Power of Dehydration Unit Operator No March 03, 2020 1:26pm Advance Directive Response Recorded Date/ Time Living Will No September 21 9:06pm Power of Dehydration Unit Operator No September 21, 2022 9:06pm Reason for Referral Specialty Diagnoses / Procedures Referred By Contac t Referred To Contact MR IMAGING Diagnoses Multiple sclerosis, relapsing-remitting (HCC) Procedures MRI BRAIN WO/W IVCON MRI BRAIN BRAIN STEM W/O W/CONTRAST MATERIAL Elder Chao PA-C [address] [place] [address] Mr Imaging Referral ID Status Reason Start Date Expiration Date Visits Requested Visits Authorized [id number] Pending Review Auto-Generat ed Referral 12/27/2021 01/26/2023 1 1 Specialty Diagnoses / Procedures Referred By Contac t Referred To Contact Diagnoses Depression, unspecified depression type Procedures CONSULT TO PSYCHIATRY OFFICE/OUTPATIENT [facility] 60-74 MINUTES Isael Fish MD [address] [place] [id number] Referral ID Status Reason Start Date Expiration Date Visits Requested Visits Authorized [id number] Pending Review PCP Requested Referral 10/15/2022 10/15/2023 1 1 Referral ID Status Reason Start Date Expiration Date Visits Requested Visits Authorized [id number] Pending Review Auto-Generat ed Referral 12/06/2022 01/05/2024 1 1 Specialty Diagnoses / Procedures Referred By Contac t Referred To Contact Dermatology Diagnoses Skin cancer screening Procedures CONSULT TO DERMATOLOGY Isael Fish MD [address] [place] [id number] Referral ID Status Reason Start Date Expiration Date Visits Requested Visits Authorized [id number] Ref Not Required PCP Requested Referral 02/04/2023 02/04/2024 1 1 Specialty Diagnoses / Procedures Referred By Contac t Referred To Contact General Surgery Diagnoses GERD without esophagitis Procedures CONSULT TO GENERAL SURGERY OFFICE/OUTPATIENT [facility] 60-74 MINUTES Isael Fish MD [address] [place] [id number] Referral ID Status Reason Start Date Expiration Date Visits Requested Visits Authorized [id number] Authorized PCP Requested Referral 03/06/2023 03/05/2024 1 1 Chief Complaint and Reason for Visit Chief Complaint RUQ PAIN Chief Complaint RUQ PAIN chest pain Additional Source Comments INFORMATION SOURCE (unrecogn ized section and content) DATE CREATED AUTHOR 06/07/2018 [facility] DATE CREATED AUTHOR AUTHOR'S ORGANIZ ATION 07/16/2018 [facility] DATE CREATED AUTHOR AUTHOR'S ORGANIZ ATION 02/14/[address] [facility] DATE CREATED AUTHOR AUTHOR'S ORGANIZ ATION 04/20/2025 [facility] Source Comments (unrecognize d section and content) In the event this informatio n is protected by the Federal Confidentiality of Alcohol and Drug Abuse Patient Records regulations: The Federal rules restrict any use of the information to criminally investigate or prosecute any alcohol or drug abuse patient.[facility] the event this information is protected by the Federal Confidentiality of Alcohol and Drug Abuse Patient Records regulations: The Federal rules restrict any use of the information to criminally investigate or prosecute any alcohol or drug abuse patient.[facility] the event this information is protected by the Federal Confidentiality of Alcohol and Drug Abuse Patient Records regulations: The Federal rules restrict any use of the information to criminally investigate or prosecute any alcohol or drug abuse patient.[facility] the event this information is protected by the Federal Confidentiality of Alcohol and Drug Abuse Patient Records regulations: The Federal rules restrict any use of the information to criminally investigate or prosecute any alcohol or drug abuse patient.[facility] the event this information is protected by the Federal Confidentiality of Alcohol and Drug Abuse Patient Records regulations: The Federal rules restrict any use of the information to criminally investigate or prosecute any alcohol or drug abuse patient.[facility] the event this information is protected by the Federal Confidentiality of Alcohol and Drug Abuse Patient Records regulations: The Federal rules restrict any use of the information to criminally investigate or prosecute any alcohol or drug abuse patient.[facility] the event this information is protected by the Federal Confidentiality of Alcohol and Drug Abuse Patient Records regulations: The Federal rules restrict any use of the information to criminally investigate or prosecute any alcohol or drug abuse patient.[facility] the event this information is protected by the Federal Confidentiality of Alcohol and Drug Abuse Patient Records regulations: The Federal rules restrict any use of the information to criminally investigate or prosecute any alcohol or drug abuse patient.[facility] the event this information is protected by the Federal Confidentiality of Alcohol and Drug Abuse Patient Records regulations: The Federal rules restrict any use of the information to criminally investigate or prosecute any alcohol or drug abuse patient.[facility] the event this information is protected by the Federal Confidentiality of Alcohol and Drug Abuse Patient Records regulations: The Federal rules restrict any use of the information to criminally investigate or prosecute any alcohol or drug abuse patient.[facility] the event this information is protected by the Federal Confidentiality of Alcohol and Drug Abuse Patient Records regulations: The Federal rules restrict any use of the information to criminally investigate or prosecute any alcohol or drug abuse patient.[facility] the event this information is protected by the Federal Confidentiality of Alcohol and Drug Abuse Patient Records regulations: The Federal rules restrict any use of the information to criminally investigate or prosecute any alcohol or drug abuse patient.[facility] the event this information is protected by the Federal Confidentiality of Alcohol and Drug Abuse Patient Records regulations: The Federal rules restrict any use of the information to criminally investigate or prosecute any alcohol or drug abuse patient.[facility] the event this information is protected by the Federal Confidentiality of Alcohol and Drug Abuse Patient Records regulations: The Federal rules restrict any use of the information to criminally investigate or prosecute any alcohol or drug abuse patient.[facility] the event this information is protected by the Federal Confidentiality of Alcohol and Drug Abuse Patient Records regulations: The Federal rules restrict any use of the information to criminally investigate or prosecute any alcohol or drug abuse patient.[facility] the event this information is protected by the Federal Confidentiality of Alcohol and Drug Abuse Patient Records regulations: The Federal rules restrict any use of the information to criminally investigate or prosecute any alcohol or drug abuse patient.[facility] the event this information is protected by the Federal Confidentiality of Alcohol and Drug Abuse Patient Records regulations: The Federal rules restrict any use of the information to criminally investigate or prosecute any alcohol or drug abuse patient.[facility] the event this information is protected by the Federal Confidentiality of Alcohol and Drug Abuse Patient Records regulations: The Federal rules restrict any use of the information to criminally investigate or prosecute any alcohol or drug abuse patient.[facility] the event this information is protected by the Federal Confidentiality of Alcohol and Drug Abuse Patient Records regulations: The Federal rules restrict any use of the information to criminally investigate or prosecute any alcohol or drug abuse patient.[facility] the event this information is protected by the Federal Confidentiality of Alcohol and Drug Abuse Patient Records regulations: The Federal rules restrict any use of the information to criminally investigate or prosecute any alcohol or drug abuse patient.[facility] the event this information is protected by the Federal Confidentiality of Alcohol and Drug Abuse Patient Records regulations: The Federal rules restrict any use of the information to criminally investigate or prosecute any alcohol or drug abuse patient.[facility] the event this information is protected by the Federal Confidentiality of Alcohol and Drug Abuse Patient Records regulations: The Federal rules restrict any use of the information to criminally investigate or prosecute any alcohol or drug abuse patient.[facility] the event this information is protected by the Federal Confidentiality of Alcohol and Drug Abuse Patient Records regulations: The Federal rules restrict any use of the information to criminally investigate or prosecute any alcohol or drug abuse patient.[facility] the event this information is protected by the Federal Confidentiality of Alcohol and Drug Abuse Patient Records regulations: The Federal rules restrict any use of the information to criminally investigate or prosecute any alcohol or drug abuse patient.[facility] the event this information is protected by the Federal Confidentiality of Alcohol and Drug Abuse Patient Records regulations: The Federal rules restrict any use of the information to criminally investigate or prosecute any alcohol or drug abuse patient.[facility] the event this information is protected by the Federal Confidentiality of Alcohol and Drug Abuse Patient Records regulations: The Federal rules restrict any use of the information to criminally investigate or prosecute any alcohol or drug abuse patient.[facility] the event this information is protected by the Federal Confidentiality of Alcohol and Drug Abuse Patient Records regulations: The Federal rules restrict any use of the information to criminally investigate or prosecute any alcohol or drug abuse patient.[facility] the event this information is protected by the Federal Confidentiality of Alcohol and Drug Abuse Patient Records regulations: The Federal rules restrict any use of the information to criminally investigate or prosecute any alcohol or drug abuse patient.[facility] the event this information is protected by the Federal Confidentiality of Alcohol and Drug Abuse Patient Records regulations: The Federal rules restrict any use of the information to criminally investigate or prosecute any alcohol or drug abuse patient.[facility] the event this information is protected by the Federal Confidentiality of Alcohol and Drug Abuse Patient Records regulations: The Federal rules restrict any use of the information to criminally investigate or prosecute any alcohol or drug abuse patient.[facility] the event this information is protected by the Federal Confidentiality of Alcohol and Drug Abuse Patient Records regulations: The Federal rules restrict any use of the information to criminally investigate or prosecute any alcohol or drug abuse patient.[facility] the event this information is protected by the Federal Confidentiality of Alcohol and Drug Abuse Patient Records regulations: The Federal rules restrict any use of the information to criminally investigate or prosecute any alcohol or drug abuse patient.[facility] the event this information is protected by the Federal Confidentiality of Alcohol and Drug Abuse Patient Records regulations: The Federal rules restrict any use of the information to criminally investigate or prosecute any alcohol or drug abuse patient.[facility] the event this information is protected by the Federal Confidentiality of Alcohol and Drug Abuse Patient Records regulations: The Federal rules restrict any use of the information to criminally investigate or prosecute any alcohol or drug abuse patient.[facility] the event this information is protected by the Federal Confidentiality of Alcohol and Drug Abuse Patient Records regulations: The Federal rules restrict any use of the information to criminally investigate or prosecute any alcohol or drug abuse patient.[facility] the event this information is protected by the Federal Confidentiality of Alcohol and Drug Abuse Patient Records regulations: The Federal rules restrict any use of the information to criminally investigate or prosecute any alcohol or drug abuse patient.[facility] the event this information is protected by the Federal Confidentiality of Alcohol and Drug Abuse Patient Records regulations: The Federal rules restrict any use of the information to criminally investigate or prosecute any alcohol or drug abuse patient.[facility] the event this information is protected by the Federal Confidentiality of Alcohol and Drug Abuse Patient Records regulations: The Federal rules restrict any use of the information to criminally investigate or prosecute any alcohol or drug abuse patient.[facility] the event this information is protected by the Federal Confidentiality of Alcohol and Drug Abuse Patient Records regulations: The Federal rules restrict any use of the information to criminally investigate or prosecute any alcohol or drug abuse patient.[facility] the event this information is protected by the Federal Confidentiality of Alcohol and Drug Abuse Patient Records regulations: The Federal rules restrict any use of the information to criminally investigate or prosecute any alcohol or drug abuse patient.[facility] the event this information is protected by the Federal Confidentiality of Alcohol and Drug Abuse Patient Records regulations: The Federal rules restrict any use of the information to criminally investigate or prosecute any alcohol or drug abuse patient.[facility] the event this information is protected by the Federal Confidentiality of Alcohol and Drug Abuse Patient Records regulations: The Federal rules restrict any use of the information to criminally investigate or prosecute any alcohol or drug abuse patient.[facility] the event this information is protected by the Federal Confidentiality of Alcohol and Drug Abuse Patient Records regulations: The Federal rules restrict any use of the information to criminally investigate or prosecute any alcohol or drug abuse patient.[facility] the event this information is protected by the Federal Confidentiality of Alcohol and Drug Abuse Patient Records regulations: The Federal rules restrict any use of the information to criminally investigate or prosecute any alcohol or drug abuse patient.[facility] the event this information is protected by the Federal Confidentiality of Alcohol and Drug Abuse Patient Records regulations: The Federal rules restrict any use of the information to criminally investigate or prosecute any alcohol or drug abuse patient.[facility] the event this information is protected by the Federal Confidentiality of Alcohol and Drug Abuse Patient Records regulations: The Federal rules restrict any use of the information to criminally investigate or prosecute any alcohol or drug abuse patient.[facility] the event this information is protected by the Federal Confidentiality of Alcohol and Drug Abuse Patient Records regulations: The Federal rules restrict any use of the information to criminally investigate or prosecute any alcohol or drug abuse patient.[facility] the event this information is protected by the Federal Confidentiality of Alcohol and Drug Abuse Patient Records regulations: The Federal rules restrict any use of the information to criminally investigate or prosecute any alcohol or drug abuse patient.[facility] the event this information is protected by the Federal Confidentiality of Alcohol and Drug Abuse Patient Records regulations: The Federal rules restrict any use of the information to criminally investigate or prosecute any alcohol or drug abuse patient.[facility] the event this information is protected by the Federal Confidentiality of Alcohol and Drug Abuse Patient Records regulations: The Federal rules restrict any use of the information to criminally investigate or prosecute any alcohol or drug abuse patient.[facility] the event this information is protected by the Federal Confidentiality of Alcohol and Drug Abuse Patient Records regulations: The Federal rules restrict any use of the information to criminally investigate or prosecute any alcohol or drug abuse patient.[facility] the event this information is protected by the Federal Confidentiality of Alcohol and Drug Abuse Patient Records regulations: The Federal rules restrict any use of the information to criminally investigate or prosecute any alcohol or drug abuse patient.[facility] the event this information is protected by the Federal Confidentiality of Alcohol and Drug Abuse Patient Records regulations: The Federal rules restrict any use of the information to criminally investigate or prosecute any alcohol or drug abuse patient.[facility] the event this information is protected by the Federal Confidentiality of Alcohol and Drug Abuse Patient Records regulations: The Federal rules restrict any use of the information to criminally investigate or prosecute any alcohol or drug abuse patient.[facility] the event this information is protected by the Federal Confidentiality of Alcohol and Drug Abuse Patient Records regulations: The Federal rules restrict any use of the information to criminally investigate or prosecute any alcohol or drug abuse patient.[facility] the event this information is protected by the Federal Confidentiality of Alcohol and Drug Abuse Patient Records regulations: The Federal rules restrict any use of the information to criminally investigate or prosecute any alcohol or drug abuse patient.[facility] HospitalIn the event this information is protected by the Federal Confidentiality of Alcohol and Drug Abuse Patient Records regulations: The Federal rules restrict any use of the information to criminally investigate or prosecute any alcohol or drug abuse patient.[facility] HospitalIn the event this information is protected by the Federal Confidentiality of Alcohol and Drug Abuse Patient Records regulations: The Federal rules restrict any use of the information to criminally investigate or prosecute any alcohol or drug abuse patient.[facility] HospitalIn the event this information is protected by the Federal Confidentiality of Alcohol and Drug Abuse Patient Records regulations: The Federal rules restrict any use of the information to criminally investigate or prosecute any alcohol or drug abuse patient.[facility] HospitalIn the event this information is protected by the Federal Confidentiality of Alcohol and Drug Abuse Patient Records regulations: The Federal rules restrict any use of the information to criminally investigate or prosecute any alcohol or drug abuse patient.[facility] HospitalIn the event this information is protected by the Federal Confidentiality of Alcohol and Drug Abuse Patient Records regulations: The Federal rules restrict any use of the information to criminally investigate or prosecute any alcohol or drug abuse patient.[facility] HospitalIn the event this information is protected by the Federal Confidentiality of Alcohol and Drug Abuse Patient Records regulations: The Federal rules restrict any use of the information to criminally investigate or prosecute any alcohol or drug abuse patient.[facility] HospitalIn the event this information is protected by the Federal Confidentiality of Alcohol and Drug Abuse Patient Records regulations: The Federal rules restrict any use of the information to criminally investigate or prosecute any alcohol or drug abuse patient.[facility] HospitalIn the event this information is protected by the Federal Confidentiality of Alcohol and Drug Abuse Patient Records regulations: The Federal rules restrict any use of the information to criminally investigate or prosecute any alcohol or drug abuse patient.[facility] HospitalIn the event this information is protected by the Federal Confidentiality of Alcohol and Drug Abuse Patient Records regulations: The Federal rules restrict any use of the information to criminally investigate or prosecute any alcohol or drug abuse patient.[facility] HospitalIn the event this information is protected by the Federal Confidentiality of Alcohol and Drug Abuse Patient Records regulations: The Federal rules restrict any use of the information to criminally investigate or prosecute any alcohol or drug abuse patient.[facility] HospitalIn the event this information is protected by the Federal Confidentiality of Alcohol and Drug Abuse Patient Records regulations: The Federal rules restrict any use of the information to criminally investigate or prosecute any alcohol or drug abuse patient.[facility] HospitalIn the event this information is protected by the Federal Confidentiality of Alcohol and Drug Abuse Patient Records regulations: The Federal rules restrict any use of the information to criminally investigate or prosecute any alcohol or drug abuse patient.[facility] HospitalIn the event this information is protected by the Federal Confidentiality of Alcohol and Drug Abuse Patient Records regulations: The Federal rules restrict any use of the information to criminally investigate or prosecute any alcohol or drug abuse patient.[facility] HospitalIn the event this information is protected by the Federal Confidentiality of Alcohol and Drug Abuse Patient Records regulations: The Federal rules restrict any use of the information to criminally investigate or prosecute any alcohol or drug abuse patient.[facility] HospitalIn the event this information is protected by the Federal Confidentiality of Alcohol and Drug Abuse Patient Records regulations: The Federal rules restrict any use of the information to criminally investigate or prosecute any alcohol or drug abuse patient.[facility] HospitalIn the event this information is protected by the Federal Confidentiality of Alcohol and Drug Abuse Patient Records regulations: The Federal rules restrict any use of the information to criminally investigate or prosecute any alcohol or drug abuse patient.[facility] HospitalIn the event this information is protected by the Federal Confidentiality of Alcohol and Drug Abuse Patient Records regulations: The Federal rules restrict any use of the information to criminally investigate or prosecute any alcohol or drug abuse patient.[facility] HospitalIn the event this information is protected by the Federal Confidentiality of Alcohol and Drug Abuse Patient Records regulations: The Federal rules restrict any use of the information to criminally investigate or prosecute any alcohol or drug abuse patient.[facility] HospitalIn the event this information is protected by the Federal Confidentiality of Alcohol and Drug Abuse Patient Records regulations: The Federal rules restrict any use of the information to criminally investigate or prosecute any alcohol or drug abuse patient.[facility] HospitalIn the event this information is protected by the Federal Confidentiality of Alcohol and Drug Abuse Patient Records regulations: The Federal rules restrict any use of the information to criminally investigate or prosecute any alcohol or drug abuse patient.[facility] HospitalIn the event this information is protected by the Federal Confidentiality of Alcohol and Drug Abuse Patient Records regulations: The Federal rules restrict any use of the information to criminally investigate or prosecute any alcohol or drug abuse patient.[facility] HospitalIn the event this information is protected by the Federal Confidentiality of Alcohol and Drug Abuse Patient Records regulations: The Federal rules restrict any use of the information to criminally investigate or prosecute any alcohol or drug abuse patient.[facility] HospitalIn the event this information is protected by the Federal Confidentiality of Alcohol and Drug Abuse Patient Records regulations: The Federal rules restrict any use of the information to criminally investigate or prosecute any alcohol or drug abuse patient.[facility] HospitalIn the event this information is protected by the Federal Confidentiality of Alcohol and Drug Abuse Patient Records regulations: The Federal rules restrict any use of the information to criminally investigate or prosecute any alcohol or drug abuse patient.[facility] Reason for Visit (unrecogniz ed section and content) Reason Comments Established Patient Follow-Up Reason Onset Date Comments Refill Request 01/15/2022 Reason Comments Opened In Error Reason Comments Well Woman Specialty Diagnoses / Procedures Referred By Contac t Referred To Contact Gynecology / PIG HANDLER Diagnoses Encounter for gynecological examination (general) (routine) without abnormal findings annual exam Procedures WELLNESS EXAMS EST 18-39 YRS EST I ANNUAL PATIENT 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, 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 TENDER [address] [place] [address] Referral ID Status Reason Start Date Expiration Date Visits Re quested Visits Authorized [id number] Closed 02/27/2022 10/06/2022 1 1 Reason Onset Date Comments Refill Request 04/13/2022 Reason Comments Refill Request Reason Onset Date Comments Refill Request 05/02/2022 Reason Comments Pain, Abdominal RUQ Specialty Diagnoses / Procedures Referred By Contac t Referred To Contact Family Practice / FAMILY MEDICINE Diagnoses Right upper quadrant pain RUQ pain Procedures OFFICE/OUTPATIENT ESTABLISHED MOD MDM 30-39 MIN 4C EST Isael Fish MD [address] [place] [id number] Isael Fish MD [address] [place] [phone] Referral ID Status Reason Start Date Expiration Date V isits Requested Visits Authorized [id number] Authorized 06/19/2022 10/06/2022 99 99 Reason Comments Results Reason Onset Date Comments Refill Request 07/24/2022 Reason Comments Forms FMLA Reason Comments F/U 6 months Specialty Diagnoses / Procedures Referred By Contac t Referred To Contact Family Medicine / FAMILY MEDICINE Diagnoses Right upper quadrant pain RUQ pain Procedures OFFICE/OUTPATIENT ESTABLISHED MOD MDM 30-39 MIN 4C EST Isael Fish MD [address] [place] [id number] Isael Fish MD [address] [place] [address] Reason Comments Results, Lab Reason Onset Date Comments Refill Request 12/19/2022 Reason Onset Date Comments Refill Request 12/23/2022 Reason Onset Date Comments Refill Request 12/24/2022 Reason Onset Date Comments Refill Request 01/05/2023 Reason Comments Outside [id number] Ordered Reason Comments Established Patient Follow-Up Reason [...] Care Teams (unrecognized sec tion and content) Functional Architect Relationship Specialty Start Date End Date Isael Fish MD [address] [place], [place] [id number] PCP - General Family Practice 03/14/16 [facility] Cardiology 12/24/16 Alfredito Hassan [address] [place] [id number] Set Designer Cardiology 06/08/20 Functional Architect Relationship Specialty Start Date End Date Isael Fish MD [address] [place] [place], [place] [id number] PCP - General Family Practice 03/14/16 [facility] Cardiology 12/24/16 Alfredito Hassan [address] [place] [address] Set Designer Cardiology 06/08/20 Functional Architect Relationship Specialty Start Date End Date Isael Fish MD [address] [place] [address] PCP - General Family Practice 03/14/16 [facility] Cardiology 12/24/16 Alfredito Hassan [address] [place] [address] Set Designer Cardiology 06/08/20 Functional Architect Relationship Specialty Start Date End Date Isael Fish MD [address] [place] [address] PCP - General Family Practice 03/14/16 [facility] Cardiology 12/24/16 Alfredito Hassan [address] [place] [address] Set Designer Cardiology 06/08/20 Functional Architect Relationship Specialty Start Date End Date Isael Fish MD [address] [place] [address] PCP - General Family Practice 03/14/16 [facility] Cardiology 12/24/16 Alfredito Hassan [address] [place] [address] Set Designer Cardiology 06/08/20 Functional Architect Relationship Specialty Start Date End Date Isael Fish MD [address] [place] [address] PCP - General Family Practice 03/14/16 [facility] Cardiology 12/24/16 Alfredito Hassan [address] [place] [address] Set Designer Cardiology 06/08/20 Functional Architect Relationship Specialty Start Date End Date Isael Fish MD [address] [place] [address] PCP - General Family Practice 03/14/16 [facility] Cardiology 12/24/16 Alfredito Hassan [address] [place] [address] Set Designer Cardiology 06/08/20 Functional Architect Relationship Specialty Start Date End Date Isael Fish MD [address] [place] [address] PCP - General Family Practice 03/14/16 [facility] Cardiology 12/24/16 Alfredito Hassan [address] [place] [address] Set Designer Cardiology 06/08/20 Functional Architect Relationship Specialty Start Date End Date Isael Fish MD [address] [place] [address] PCP - General Family Practice 03/14/16 [facility] Cardiology 12/24/16 Alfredito Hassan [address] [place] [address] Set Designer Cardiology 06/08/20 Functional Architect Relationship Specialty Start Date End Date Isael Fish MD [address] [place] [address] PCP - General Family Practice 03/14/16 [facility] Cardiology 12/24/16 Alfredito Hassan [address] [place] [address] Set Designer Cardiology 06/08/20 Functional Architect Relationship Specialty Start Date End Date Isael Fish MD [address] [place] [address] PCP - General Family Medicine 03/14/16 [facility], Gary Correll Cardiology 12/24/16 Alfredito Hassan [address] [place] [address] Set Designer Cardiology 06/08/20 Functional Architect Relationship Specialty Start Date End Date Isael Fish MD [address] [place] [address] PCP - General Family Medicine 03/14/16 [facility]rell Cardiology 12/24/16 Alfredito Hassan [address] [place] [address] Set Designer Cardiology 06/08/20 Functional Architect Relationship Specialty Start Date End Date Isael Fish MD [address] [place] [address] PCP - General Family Medicine 03/14/16 [facility], Gary Ben Cardiology 12/24/16 Alfredito Hassan [address] [place] [address] Set Designer Cardiology 06/08/20 Functional Architect Relationship Specialty Start Date End Date Isael Fish MD [address] [place] [address] PCP - General Family Medicine 03/14/16 [facility] 12/24/16 Alfredito Hassan [address] [facility] [facility] [address] Set Designer Cardiology 06/08/20 Functional Architect Relationship Specialty Start Date End Date Isael Fish MD [address] [place] [address] PCP - General Family Medicine 03/14/16 [facility] 12/24/16 Alfredito Hassan [address] [facility] [address] Set Designer Cardiology 06/08/20 Functional Architect Relationship Specialty Start Date End Date Isael Fish MD [address] [place] [address] PCP - General Family Medicine 03/14/16 [facility] [address] [facility] [place] [address] Cardiology 12/24/16 Alfredito Hassan [address] [place] [address] Set Designer Cardiology 06/08/20 Functional Architect Relationship Specialty Start Date End Date Isael Fish MD [address] [place] [address] PCP - General Family Medicine 03/14/16 [facility] [address] [facility] [place] [address] Cardiology 12/24/16 Alfredito Hassan [address] [place] [address] Set Designer Cardiology 06/08/20 Functional Architect Relationship Specialty Start Date End Date Isael Fish MD [address] [place] [address] PCP - General Family Medicine 03/14/16 Gary Riley [address] [place] [place] [address] Cardiology 12/24/16 Alfredito Hassan [address] [place] [address] Set Designer Cardiology 06/08/20 Functional Architect Relationship Specialty Start Date End Date Isael Fish MD [address] [place] [address] PCP - General Family Medicine 03/14/16 Gary Riley [address] [place] [address] Cardiology 12/24/16 Alfredito Hassan [address] [place] [address] Set Designer Cardiology 06/08/20 Functional Architect Relationship Specialty Start Date End Date Isael Fish MD [address] [place] [address] PCP - General Family Medicine 03/14/16 Gary Riley [address] [place] [place] [address] Cardiology 12/24/16 Alfredito Hassan [address] [place] [address] Set Designer Cardiology 06/08/20 Functional Architect Relationship Specialty Start Date End Date Isael Fish MD [address] [facility] [place] [address] PCP - General Family Medicine 03/14/16 Gary Riley [address] [place] [address] Cardiology 12/24/16 Alfredito Hassan [address] [place] [address] Set Designer Cardiology 06/08/20 Functional Architect Relationship Specialty Start Date End Date Isael Fish MD [address] [place] [address] PCP - General Family Medicine 03/14/16 Gary Riley [address] [place] [address] Cardiology 12/24/16 Alfredito Hassan [address] [place] [address] Set Designer Cardiology 06/08/20 Functional Architect Relationship Specialty Start Date End Date Isael Fish MD [address] [place] [address] PCP - General Family Medicine 03/14/16 Gary Riley [address] [place] [address] Cardiology 12/24/16 Alfredito Hassan [address] [place] [address] Set Designer Cardiology 06/08/20 Functional Architect Relationship Specialty Start Date End Date Isael Fish MD [address] [place] [address] PCP - General Family Medicine 03/14/16 Gary Riley [address] [facility] [place] [address] Cardiology 12/24/16 Alfredito Hassan [address] [place] [address] Set Designer Cardiology 06/08/20 Functional Architect Relationship Specialty Start Date End Date Isael Fish MD [address] [place] [address] PCP - General Family Medicine 03/14/16 Gary Riley [address] [place] [address] Cardiology 12/24/16 Alfredito Hassan [address] [facility] [facility] [place] [address] Set Designer Cardiology 06/08/20 Functional Architect Relationship Specialty Start Date End Date Isael Fish MD [address] [facility] [place] [address] PCP - General Family Medicine 03/14/16 Gary Riley [address] [place] [address] Cardiology 12/24/16 Alfredito Hassan [address] [place] [address] Set Designer Cardiology 06/08/20 Functional Architect Relationship Specialty Start Date End Date Isael Fish MD [address] [place] [address] PCP - General Family Medicine 03/14/16 Gary Riley [address] [place] [address] Cardiology 12/24/16 Alfredito Hassan [address] [place] [address] Set Designer Cardiology 06/08/20 Functional Architect Relationship Specialty Start Date End Date Isael Fish MD [address] [place] [address] PCP - General Family Medicine 03/14/16 Gary Riley [address] [place] [address] Cardiology 12/24/16 Alfredito Hassan [address] [place] [address] Set Designer Cardiology 06/08/20 Functional Architect Relationship Specialty Start Date End Date Isael Fish MD [address] [place] [place] [address] PCP - General Family Medicine 03/14/16 Gary Riley [address] [place] [address] Cardiology 12/24/16 Alfredito Hassan [address] [place] [address] Set Designer Cardiology 06/08/20 Functional Architect Relationship Specialty Start Date End Date Isael Fish MD [address] [place] [address] PCP - General Family Medicine 03/14/16 Gary Riley [address] [place] [address] Cardiology 12/24/16 Alfredito Hassan MD [address] [place] [address] Set Designer Cardiology 06/08/20 Functional Architect Relationship Specialty Start Date End Date Isael Fish MD [address] [place] [address] PCP - General Family Medicine 03/14/16 Gary Riley [address] [place] [address] Cardiology 12/24/16 Alfredito Hassan MD [address] [place] [address] Set Designer Cardiology 06/08/20 Functional Architect Relationship Specialty Start Date End Date Isael Fish MD [address] [place] [address] PCP - General Family Medicine 03/14/16 Gary Riley [address] [place] [address] Cardiology 12/24/16 Alfredito Hassan MD [address] [facility] [address] Set Designer Cardiology 06/08/20 Functional Architect Relationship Specialty Start Date End Date Isael Fish MD [address] [place] [address] PCP - General Family Medicine 03/14/16 Gary Riley [address] [place] [address] Cardiology 12/24/16 Alfredito Hassan MD [address] [facility] [address] Set Designer Cardiology 06/08/20 Functional Architect Relationship Specialty Start Date End Date Isael Fish MD [address] [place] [address] PCP - General Family Medicine 03/14/16 Gary Riley [address] [place] [address] Cardiology 12/24/16 Alfredito Hassan MD [address] [place] [address] Set Designer Cardiology 06/08/20 Functional Architect Relationship Specialty Start Date End Date Isael Fish MD [address] [place] [address] PCP - General Family Medicine 03/14/16 Gary Riley [address] [place] [address] Cardiology 12/24/16 Alfredito Hassan MD [address] [place] [address] Set Designer Cardiology 06/08/20 Functional Architect Relationship Specialty Start Date End Date Isael Fish MD [address] [place] [address] PCP - General Family Medicine 03/14/16 Gary Riley [address] [place] [address] Cardiology 12/24/16 Alfredito Hassan MD [address] [place] [address] Set Designer Cardiology 06/08/20 Functional Architect Relationship Specialty Start Date End Date Isael Fish MD [address] [place] [address] PCP - General Family Medicine 03/14/16 Gary Riley [address] [place] [address] Cardiology 12/24/16 Alfredito Hassan MD [address] [place] [address] Set Designer Cardiology 06/08/20 Functional Architect Relationship Specialty Start Date End Date Isael Fish MD [address] [place] [address] PCP - General Family Medicine 03/14/16 Gary Riley [address] [place] [address] Cardiology 12/24/16 [place] [address] [place] [address], [place] [address] Set Designer Cardiology 06/08/20 Functional Architect Relationship Specialty Start Date End Date Isael Fish MD [address] [place] [address] PCP - General Family Medicine 03/14/16 Gary Riley [address] [place] [address] Cardiology 12/24/16 Alfredito Hassan MD [address] [place] [address] Set Designer Cardiology 06/08/20 Functional Architect Relationship Specialty Start Date End Date Isael Fish MD [address] [place] [address] PCP - General Family Medicine 03/14/16 Gary Riley [address] [place] [address] Cardiology 12/24/16 Alfredito Hassan MD [address] [place] [address] Set Designer Cardiology 06/08/20 Functional Architect Relationship Specialty Start Date End Date Isael Fish MD [address] [place] [address] PCP - General Family Medicine 03/14/16 Gary Riley [address] [facility] [place] [address] Cardiology 12/24/16 Alfredito Hassan MD [address] [place] [address] Set Designer Cardiology 06/08/20 Functional Architect Relationship Specialty Start Date End Date Isael Fish MD [address] [place] [address] PCP - General Family Medicine 03/14/16 Gary Riley [address] [facility] [place] [address] Cardiology 12/24/16 Alfredito Hassan MD [address] [facility] [place] [address] Set Designer Cardiology 06/08/20 Functional Architect Relationship Specialty Start Date End Date Isael Fish MD [address] [facility] [place] [address] PCP - General Family Medicine 03/14/16 Gary Riley [address] [facility] [place] [address] Cardiology 12/24/16 Alfredito Hassan MD [address] [place] [address] Set Designer Cardiology 06/08/20 Functional Architect Relationship Specialty Start Date End Date Isael Fish MD [address] [facility] [place] [address] PCP - General Family Medicine 03/14/16 Gary Riley [address] [facility] [place] [address] Cardiology 12/24/16 Alfredito Hassan MD [address] [place] [address] Set Designer Cardiology 06/08/20 Functional Architect Relationship Specialty Start Date End Date Isael Fish MD [address] [facility] [place] [address] PCP - General Family Medicine 03/14/16 Gary Riley [address] [place] [address] Cardiology 12/24/16 Alfredito Hassan MD [address] [place] [address] Set Designer Cardiology 06/08/20 Functional Architect Relationship Specialty Start Date End Date Isael Fish MD [address] [place] [address] PCP - General Family Medicine 03/14/16 Gary Riley [address] [place] [address] Cardiology 12/24/16 Alfredito Hassan MD [address] [place] [address] Set Designer Cardiology 06/08/20 Functional Architect Relationship Specialty Start Date End Date Isael Fish MD [address] [place] [address] PCP - General Family Medicine 03/14/16 Gary Riley [address] [place] [address] Cardiology 12/24/16 Alfredito Hassan MD [address] [place] [address] Set Designer Cardiology 06/08/20 Functional Architect Relationship Specialty Start Date End Date Isael Fish MD [address] [facility] [place] [address] PCP - General Family Medicine 03/14/16 Gary Riley [address] [place] [place] [address] Cardiology 12/24/16 Alfredito Hassan MD [address] [place] [place] [address] Set Designer Cardiology 06/08/20 Functional Architect Relationship Specialty Start Date End Date Isael Fish MD [address] [facility] [place] [address] PCP - General Family Medicine 03/14/16 Gary Riley [address] [place] [place] [address] Cardiology 12/24/16 Alfredito Hassan MD [address] [place] [address] Set Designer Cardiology 06/08/20 Functional Architect Relationship Specialty Start Date End Date Isael Fish MD [address] [place] [address] PCP - General Family Medicine 03/14/16 Gary Riley [address] [place] [place] [address] Cardiology 12/24/16 Alfredito Hassan MD [address] [place] [place] [address] Set Designer Cardiology 06/08/20 Functional Architect Relationship Specialty Start Date End Date Isael Fish MD [address] [facility] [place] [address] PCP - General Family Medicine 03/14/16 Gary Riley [address] [place] [address] Cardiology 12/24/16 Alfredito Hassan MD [address] [place] [address] Set Designer Cardiology 06/08/20 Functional Architect Relationship Specialty Start Date End Date Isael Fish MD [address] [place] [address] PCP - General Family Medicine 03/14/16 Gary Riley [address] [place] [address] Cardiology 12/24/16 Alfredito Hassan MD [address] [place] [address] Set Designer Cardiology 06/08/20 Functional Architect Relationship Specialty Start Date End Date Isael Fish MD [address] [place] [address] PCP - General Family Medicine 03/14/16 Gary Riley [address] [place] [place] [address] Cardiology 12/24/16 Alfredito Hassan MD [address] [place] [address] Set Designer Cardiology 06/08/20 Functional Architect Relationship Specialty Start Date End Date Isael Fish MD [address] [place] [address] PCP - General Family Medicine 03/14/16 Gary Riley [address] [place] [address] Cardiology 12/24/16 Alfredito Hassan MD [address] [place] [address] Set Designer Cardiology 06/08/20 Functional Architect Relationship Specialty Start Date End Date Isael Fish MD [address] [place] [address] PCP - General Family Medicine 03/14/16 Gary Riley [address] [place] [address] Cardiology 12/24/16 Alfredito Hassan MD [address] [place] [address] Set Designer Cardiology 06/08/20 Romi Santana APRN.CNP [address] [place] [address] Building Maintenance Superintendent Family Medicine 09/12/24 Bing Ruff PA-C [address] [place] [address] Building Maintenance Superintendent Family Medicine 09/12/24 Functional Architect Relationship Specialty Start Date End Date Isael Fish MD [address] [place] [address] PCP - General Family Medicine 03/14/16 Gary Riley [address] [place] [address] Cardiology 12/24/16 Alfredito Hassan MD [address] [place] [address] Set Designer Cardiology 06/08/20 Romi Santana APRN.SCALE RECLAMATION TENDER [address] [place] [address] [facility] Bing Ruff PA-C [address] [place] [address] [facility] 09/12/24 Functional Architect Relationship Specialty Start Date End Date Isael Fish MD [address] [place] [address] PCP - General Family Medicine 03/14/16 Gary Riley [address] [place] [address] Cardiology 12/24/16 Alfredito Hassan MD [address] [place] [address] Set Designer Cardiology 06/08/20 Romi Santana APRN.SCALE RECLAMATION TENDER [address] [place] [address] [facility] 09/12/24 Bing Rfuf PA-C [address] [place] [address] [facility] 09/12/24 Functional Architect Relationship Specialty Start Date End Date Isael Fish MD [address] [place] [address] PCP - General Family Medicine 03/14/16 Gary Riley [address] [place] [address] Cardiology 12/24/16 Alfredito Hassan MD [address] [place] [place] [address] Set Designer Cardiology 06/08/20 Romi Santana APRN.SCALE RECLAMATION TENDER [address] [place] [address] Building Maintenance Superintendent Family Medicine 09/12/24 Bing Ruff PA-C [address] [place] [address] [facility] 09/12/24 Functional Architect Relationship Specialty Start Date End Date Isael Fish MD [address] [place] [address] PCP - General Family Medicine 03/14/16 Gary Riley [address] [place] [place] [address] Cardiology 12/24/16 Alfredito Hassan MD [address] [place] [address] Set Designer Cardiology 06/08/20 Romi Santana APRN.SCALE RECLAMATION TENDER [address] [place] [address] [facility] 09/12/24 Bing Ruff PA-C [address] [place] [address] [facility] 09/12/24 Functional Architect Relationship Specialty Start Date End Date Isael Fish MD [address] [place] [address] PCP - General Family Medicine 03/14/16 Gary Riley [address] [place] [address] Cardiology 12/24/16 Alfredito Hassan MD [address] [place] [address] Set Designer Cardiology 06/08/20 Romi Santana, NIEVES.SCALE RECLAMATION TENDER [address] [place] [address] Building Maintenance Superintendent Family Medicine 09/12/24 Bing Ruff PA-C [address] [place] [address] Building Maintenance Superintendent Family [facility] 09/12/24 Functional Architect Relationship Specialty Start Date End Date Isael Fish MD [address] [place] [address] PCP - General Family Medicine 03/14/16 Gary Riley [address] [place] [address] Cardiology 12/24/16 Alfredito Hassan MD [address] [place] [address] Set Designer Cardiology 06/08/20 Romi Santana, 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 TENDER [address] [place] [address] Building Maintenance Superintendent Family Medicine 09/12/24 Bing Ruff PA-C [address] [place] [address] Building Maintenance Superintendent Family Medicine 09/12/24 Functional Architect Relationship Specialty Start Date End Date Isael Fish MD [address] [place] [address] PCP - General Family Medicine 03/14/16 Gary Riley [address] [place] [address] Cardiology 12/24/16 Alfredito Hassan MD [address] [place] [address] Set Designer Cardiology 06/08/20 Romi Santana APRN.SCALE RECLAMATION TENDER [address] [place] [address] [facility] 09/12/24 Bing Ruff PA-C [address] [place] [address] [facility] 09/12/24 Functional Architect Relationship Specialty Start Date End Date Isael Fish MD [address] [place] [address] PCP - General Family Medicine 03/14/16 Gary Riley [address] [place] [address] Cardiology 12/24/16 Alfredito Hassan MD [address] [place] [address] Set Designer Cardiology 06/08/20 Romi Santana APRN.SCALE RECLAMATION TENDER [address] [place] [address] [facility] 09/12/24 Bing Ruff PA-C [address] [place] [address] [facility] 09/12/24 Goals (unrecognized section and content) Goals [...] BE BASED ON THE PRIMARY CLINICAL RECORDS. [facility]. provides no warranty or guarantee of the accuracy or completeness of information in this document.
== END | disposition home or self-care (01) ==
LOC: OPMRI 06:51
PROVIDERS: PCP Family Medicine
DX: G35 Multiple sclerosis (principal)
CPT/HCPCS: 70553; A9575

== ENCOUNTER → 2025-05-25 | Outpatient (CLI) | payer OTHER, SELFPAY ==
[2025-05-25 06:51] LABS: Red Blood Cells-Urine 0 SEEN /hpf (0-5)
--- OUTSIDE RECORDS SUMMARY | 2025-05-25 07:04 | XMS RPT_ITS | CCD ---
Author Organization [facility] Care Team Providers Care Senior Account Representative Name Role Phone SHANNA JARRETT Unavailable Unavailable [facility] Unavailable Unavailable Isael Fish Unavailable Unavailable SHANNA JARRETT (OCCUPATIONAL THERAPIST REHAB MANAGER) Unavailable Unavailable Isael Fish MD Primary Care Provider Gary Riley Unavailable Unavailabl e Moodispaphilip, Alfredito F Unavailable Dr. Isael Fish Primary Care Provider Dr. Isael Fish Referring Provider Dr. Steph Irby Attending Provider Tammy LONDONO, PA Sahil Lu Attending Provider BRY Archer Attending Provider [phone] Isael Fish MD Primary Care Provider Gary [...] Primary Care Provider Alfredito Hassan MD Unavailable Isael Fish MD Primary Care Provider [phone] Gary Riley Unavailable Unavailabl e Mo CARLTON, Alfredito F Unavailable [phone] Mo CARLTON, Alfredito Thomson Unavailable [phone] Mo CARLTON, Alfredito Thomson Unavailable [phone] Max TRUCK SHOP SUPERVISOR.BA, Romi Unavailable Bing Ruff PA-C Unavailable KLEBER, ISAEL A Primary Care Unavailable ELDER CHAO Attending Unavailable KADY SOL Attending Unavailable KLEBER, ISAEL A Primary Care Unavailable KLEBER, ISAEL A Attending Unavailable KLEBER, ISAEL A Primary Care Unavailable KLEBER, ISAEL A Attending Unavailable KLEBER, ISAEL A Primary Care Unavailable Kleber, Isael Primary Care Unavailable ARMIN BUCK Attending Unavailable ARMIN BUCK Referring Unavailable Sahil Rogers Attending Unavailable Kleber, Isael Primary Care Unavailable Kleber, Isael Referring Unavailable Kleber, Isael Primary Care Unavailable Claus Montero Attending Unavailable Kleber, Isael Referring Unavailable Kleber, Isael Primary Care Unavailable Sahil Rogers Attending Unavailable Kleber, Isael Referring Unavailable Kleber, Isael Primary Care Unavailable Kleber, Isael Attending Unavailable Kleber, Isael Primary Care Unavailable Claus Montero Attending Unavailable Claus Montero Referring Unavailable Kleber, Isael Primary Care Unavailable Kleber Isael Attending Unavailable Kleber, Isael Referring Unavailable Kleber, Isael Primary Care Unavailable Kaushal Butt Attending Unavailable Kleber, Isael Referring Unavailable Kleber, Isael Primary Care Unavailable Sahil Walton Attending Unavailable Sahil Rogers Attending Unavailable Kleber, Isael Primary Care Unavailable Kleber, Isael Referring Unavailable Sahil Walton Attending Unavailable Kleber, Isael Primary Care Unavailable Kleber, Isael Primary Care Unavailable Kleber, Isael Attending Unavailable Kleber, Isael Referring Unavailable Allergies Allergy Classification Reported Allergen(s) Allergy Type Date of Onset Reaction(s) Facility Adhesive Tape (1 source) Adhesive Tape Substance Allergy 6 Unknown [facility] Aminoketones (1 source) buPROPion Drug Allergy 6 Other: See Comments [facility] Angiotensin Converting Enzyme (RODOLFO) Inhibitors (1 source) Lisinopril Drug Allergy 4 Swelling [facility] busPIRone (1 source) busPIRone Drug Allergy 7 Other: See Comments [facility] Corticosteroids (1 source) predniSONE Drug Allergy 5 Other: See Comments [facility] fexofenadine (1 source) fexofenadine Drug Allergy 9 Hives [facility] Work Phone: Lidocaine (1 source) Lidocaine Drug Allergy 6 [facility] Opioid Agonists (2 sources) Codeine Drug Allergy 2 Intolerance, GI Upset, Vomiting [facility] QUEtiapine (1 source) QUEtiapine Drug Allergy 4 Other: See Comments [facility] Serotonin Reuptake Inhibitors (SSRIs) (3 sources) PARoxetine Drug Allergy 6 Other: See Comments [facility] (20 sources) Adhesive Tape; Translations: [ADHESIVE TAPE (ROSINS)] Propensity to adverse reactions (disorder) 6 Unknown [facility] Repository (20 sources) buPROPion; Translations: [BUPROPION HCL] Drug Allergy 6 Other: See Comments [facility] Repository (20 sources) busPIRone; Translations: [BUSPIRONE HCL] Drug Allergy 7 Other: See Comments [facility] Repository (20 sources) codeine; Translations: [CODEINE] Drug Allergy 2 Intolerance, GI Upset [facility] Repository (20 sources) FLUoxetine; Translations: [FLUOXETINE HCL] Drug Allergy 6 Other: See Comments [facility] Repository (20 sources) lidocaine; Translations: [LIDOCAINE] Drug Allergy 6 Rash, Hives [facility] Repository (20 sources) lisinopril; Translations: [LISINOPRIL] Drug Allergy 4 Swelling [facility] Repository (20 sources) morphine; Translations: [MORPHINE] Drug Allergy 4 Vomiting [facility] Repository (20 sources) PARoxetine; Translations: [PAROXETINE HCL] Drug Allergy 6 Other: See Comments [facility] Repository (20 sources) predniSONE; Translations: [PREDNISONE] Drug Allergy 5 Other: See Comments [facility] Repository (20 sources) sertraline; Translations: [SERTRALINE HCL] Drug Allergy 6 Other: See Comments [facility] Repository (20 sources) fexofenadine; Translations: [FEXOFENADINE] Drug Allergy 9 Hives [facility] Work Phone: (6 sources) Adhesive Tape; Translations: [adhesive tape] Propensity to adverse reactions 2 Unknown [facility] (5 sources) buPROPion Drug Allergy 2 made depression worse [facility] Work Phone: (5 sources) FLUoxetine Drug Allergy 2 made depression worse [facility] Work Phone: (5 sources) PARoxetine Drug Allergy 2 made depression worse [facility] Work Phone: (5 sources) Sertraline Drug Allergy 2 made depression worse [facility] Work Phone: (20 sources) QUEtiapine; Translations: [QUETIAPINE] Drug Allergy 4 Other: See Comments [facility] (1 source) buPROPion Drug Allergy 5 [facility] (1 source) FLUoxetine Drug Allergy 5 [facility] (1 source) PARoxetine Drug Allergy 5 [facility] (1 source) Sertraline Drug Allergy 5 [facility] Medications Current Medications Medication Drug Class(es) Dates [...] oral tablet (20 sources) Benzodiazepine Start: End: 5 take 1 tablet by mouth three times [...] for 90 days. Take 1 tablet by imke three times a day for 90 days. [...] capsule by mouth two times a day. [email or web address] 180 capsule 3 01/05/2025 Active Start: 11-21-2022 End: 12-30-2024 take 1 capsule by mouth twice daily dimethyl fumarate (TECFIDERA) [address] Take 1 capsule (240 mg) by mouth two times a day. 180 capsule 3 01/24/2024 12/30/2024 Discontinued Start: 10-18-2022 take 1 capsule by mo [facility] twice daily dimethyl fumarate (TECFIDERA) 240 [...] TWICE DAILY Take 1 capsule by mo [facility] twice daily. Take 1 capsule (240 [...] 3:26pm Start: 03-30-2021 take 1 tablet by imke th once daily Drospirenone-Ethinyl Estradiol Active 1 [...] on above: Take 1 tablet by mike once daily. Take 1 tablet once daily [...] mg oral tablet (20 sources) l-Thyroxine Start: End: 5 take 1 tablet by mouth [...] sources) Leukotriene Receptor Antagonist Start: 3 End: 5 take 1 tablet by mouth [...] EACH PO DAILY March 03, 2020 12:00am [place] 8-Qmo-Gwt-Fish Oil (5 sources) Start: 10-13-2020 take 500 mg by mouth once daily [place] 9-Jbt-Dmd-Fish Oil Active 500 MG PO DAILY October 13, 2020 2:55pm Start: 10-13-2020 take 500 mg by mouth once daily [place] 2-Asm-Ycf-Fish Oil Active 500 MG PO DAILY October 13, 2020 12:00am Start: 10-13-2020 take 500 mg by mouth once daily [place] 0-Lho-Mbh-Fish Oil Active 500 MG PO DAILY October 13, 2020 1:00am omega-3 fatty acids 1,000 mg cap (20 sources) take 1 capsule by mo ut once daily omega-3 fatty acids 1,000 mg cap Take 1,000 mg by mouth once daily. Active take 1 capsule by mouth once lucrecia ly omega-3 fatty acids 1,000 mg cap Take 1,000 mg by mouth once daily. 0 Active Comment on above: Take 1,000 mg by mike once daily. omeprazole 40 mg delayed release [...] Comment on above: Take 1 tablet by [facility] daily before breakfast. 1/2 hr before meal. Take 1 capsule by mo [facility] twice daily. Take 1 capsule by mo [facility] two times a day. pregabalin 50 [...] Comment on above: Take 1 capsule by [facility] twice daily for 90 days. Take 1 capsule by [facility] twice daily for 30 days. Take 1 capsule by [facility] two times a day for 30 days. Take 1 capsule by [facility] two times a day for 180 days. Take 1 capsule by [facility] two times a day for 90 [...] on above: Take 1 tablet by mike twice daily. iv contrast (will be provided with radiology test) (3 sources) Start: 025 End: 03-27-2 025 inject 1 dose intravenously once iv contrast [...] Translations: [Vitamin D deficiency, unspecified] Chronic Other and ill-defined heart disease (20 sources) [...] [Obesity, Class III, BMI 40-49.9 (morbid obesity) (HCC)] Onset: 03-06-2023 Chronic Other screening for suspected [...] (20 sources) Patient encounter status; Translations: [Other skilled nursing (current) drug therapy] Onset: 12-16-2019 12-16-2019 Episodic Other aftercare (2 sources) Other skilled nursing (current) drug therapy; Translations: [Medication management] Onset: 12-16-2019 Episodic Other connective tissue disease (20 sources) Spasm; Translations: [Cramp and spasm] Onset: 12-16-2019 Episodic Other connective tissue disease (1 source) Other muscle spasm; Translations: [Muscle spasm] Onset: 03-18-2024 Episodic Other infections; including parasitic (20 sources) Personal history of other infectious and parasitic diseases; Translations: [History of 2019 novel coronavirus disease (COVID-19)] Onset: 10-12-2020 01-25-2021 Episodic Other nervous system disorders (1 source) Anesthesia of skin; Translations: [Numbness and tingling of left leg] Onset: 03-18-2024 Episodic Other nervous system disorders (1 source) Paresthesia of skin; Translations: [Numbness and tingling [...] Test Name Value Interpretation Reference Range Facility Brain W/WO Contraston 2024 Brain W/WO Contrast [facility] Imaging Services [address] [place] [address] Brain W/WO Contrast MR#: [id number] Acct: [id number] Name: ROMI RODRIGEZ Rep #: [id number] : 1985 F 39 From: Dong Oliveira MD PCP: Dr. Isael Fish MD Status: REG CLI Study: Brain W/WO Contrast Date of Exam: 04/21/25 Exam# [id number] Ordering Dr: ELDER CHAO PROCEDURE: BRAIN W/WO CONTRAST 04/21/2025 REASON FOR EXAM: MS F/U TECHNIQUE: BRAIN W/WO CONTRAST Multiplanar and multisequence images were obtained. CONTRAST: Clariscan VOLUME: 23 mL COMPARISON: MRI brain with and without contrast, 01/24/2020 FINDINGS: There are numerous foci of abnormal periventricular and subcortical white matter signal in both cerebral hemispheres consistent with multiple sclerosis. There are no new plaques when compared with the prior exam. The brainstem, cerebellar hemispheres and proximal cervical spinal cord demonstrate white matter signal abnormalities. There is an area of apparent contrast enhancement in the left superior temporal gyrus. This area is unchanged compared with the prior exam. The areas in the subcortical white matter but does not demonstrate abnormal signal on the FLAIR sequences. There is a normal sulcal pattern and gyral configuration. There is no evidence of acute intracranial hemorrhage or infarction. The loomis-white differentiation is well preserved. There is no evidence of restricted diffusion. The ventricles and basilar cisterns are normal. There are normal flow voids demonstrated in the recognized intracranial vessels. The cerebellum and brainstem are unremarkable. The cerebellar pontine angles are normal. The craniovertebral junction is normal. The sella and suprasellar regions are normal. The orbits and retro-orbital regions are unremarkable. The nasal septum is midline. The paranasal sinuses are clear. The mastoid air cells are clear. There is normal bone marrow signal in the skull base and calvarium. MRI/Brain W/WO Contrast IMPRESSION: 1. Stable foci of abnormal white matter signal in both cerebral hemispheres consistent with multiple sclerosis. 2. Stable area of apparent contrast enhancement in the left superior temporal gyrus. 3. Incidental note is made of an apparent type posterior cerebral artery on the left. Reading Location: [place] [address] CC: Dr. Isael Fish MD; ELDER CHAO Pollution Control Chemist: Signed Normal [facility] SCRN MAMM (CAD)W/JOSIANE BILATo n 03-29-2025 SCRN MAMM (CAD)W/JOSIANE BILAT [facility] Imaging Services [address] [place], [place] [id number] SCRN MAMM (CAD)W/JOSIANE BILAT MR#: [id number] Acct: [id number] Name: ROMI RODRIGEZ Rep #: [id number] : 1985 F 39 From: Yadira Thomason PCP: Dr. Isael Fish MD Status: REG CLI Study: SCRN MAMM (CAD)W/JOSIANE BILAT Date of Exam: 03/08 12/29 Exam# [id number] Ordering Dr: Isael Fish MD EXAM: SCRN [...] be mailed to the patient. Reading Location: [id number] CC: Dr. Isael Fish MD Pollution Control Chemist: Signed [facility] CNDIETERon 02-12-2025 CNOV Office Visit ([facility] ) ROMI RODRIGEZ ([id number]) 1985 F Date Time Provider Department 02/12/25 11:15 AM ELDER CHAO During your visit today, we recorded the following information about you: Pulse Blood pressure Weight Height 69/minute 103/72 119.7 kg 1.778 m Elder Chao PA-C 02/12/2025 1:[address] [facility] FOR MULTIPLE SCLEROSIS FOLLOWUP/ESTABLISHED PATIENT VISIT PRINCIPAL NEUROLOGIC DIAGNOSIS: Multiple Sclerosis 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 Office Visit from 04/25/[address] [facility] Office Visit from 08/14/[address] [facility] Upper Extremity Domain T Score 50 [...] Flowsheet Row [facility] from 12/29/[address] [facility] Office Visit from 04/25/[address] [facility] Office Visit from 08/14/[address] [facility] Sleep Domain T Score 60 55.63 54.3 Fatigue Domain T Score 64 64.84 52.3 Anxiety Domain T Score 72 64.58 65.23 Depression Domain T Score 55 50.36 47.97 Stigma Domain T Score 51 50.07 48.56 Emotional Behavior Dyscontrol T Score -- 50.82 47.39 *NeuroQoL is a multi-domain patient-reported quality of life questionnaire. PHQ-9 Flowsheet Row Office Visit from 03/18/2024 in [facility] Office Visit from 03/06/2023 in [facility] PHQ-9 Score 3 7 *PHQ-9 is a questionnaire for depressive symptoms, with scores 0-4 indicating none, 5-9 mild, 10-14 moderate, 15-19 moderately severe, and 20-27 severe symptoms. PROMIS-10 Flowsheet Row Office Visit from 11/21/2024 in [facility] Appointment from 11/18/2024 in [facility] Global Physical Health T Score 47.7 47.7 [...] Chronic systoli (more content not included)... Normal [facility] Cardiology Visit Reporton Cardiology Visit Report [facility] [address] [place] [address] OFFICE VISIT Date of Service: 01/21/25 MR#: [id number] Acct: [id number] Name: ROMI RODRIGEZ Rep #: [id number] : 1985 Provider: Dr. 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 Normal [facility] MR/BMS.BPon 01-18-2025 MR/BMS.BP [facility] [address], [address] [place] [address] OFFICE VISIT Date of Service: 01/18/25 MR#: [id number] Acct: [id number] Name: ROMI RODRIGEZ Rep #: [id number] : 1985 Provider: Dr. Sahil Deleon se, DO Age/Sex: 39/F Location: [facility] Status: Signed Intake Vital Signs 07/22/24 15:47 [...] (Verified 11/04/24 16:18) heart racing, face redness PFSH Medical History Cellulitis of right knee [...] on . Recently took a trip to [facility] to visit a [employer] site which she states gave her a [...] and klono (more content not included)... Normal [facility] CNOVon 11-26-2024 CNOV Office Visit (OBGYWTabitha ) RODRIGEZHERVE AGUIRREROMI K ([id number]) 1985 F Date Time Provider Department 11/26/24 7:00 AM KADY SOL During your visit today, we recorded the following information about you: Blood pressure Weight 122/70 125.2 kg Kady Sol APRN.TELEPHONE COLLECTOR 11/26/2024 9:15 AM Signed Patient declined tool tender. Romi is a 39 year old who [...] pap: Yes, 2017 ASCUS, HPV positive 01/2018 [place] benign Last mammogram: 03/2024 normal [facility] Abnormal mammogram: fibroadenoma of right breast 2012 [...] Living0 SAB0 IAB0 Ectopic0 Multiple0 Live Births0 Industrial Sales Engineer History LMP: 11/01/2024 (Approximate), Having periods Age at Menarche: 9 Age at First : Age at Menopause: Industrial Sales Engineer History Comments: Sexual Activity: Yes; Male Contraception: [...] her teen's Mixed hyperlipidemia 03/14/2016 Multiple sclerosis ([facility]) 12/16/[address] Downing-Santos Neuro Muscle spasm 12/16/2019 Related to MS. On Clonopin Obesity, Class II, BMI 35-39.9 08/15/2022 Obesity, Class III, BMI 40-49.9 (morbid obesity) ([facility]) 08/15/2022 PCOS (polycystic ovarian syndrome) 03/14/2016 PMH - PAST MEDICAL HISTORY OF radioactive iiodine Postprocedural hypothyroidism 04/23/2003 Seasonal allergies 07/26/2021 Takotsubo cardiomyopathy 03/14/[address] Trevino PAST SURGICAL HISTORY Procedure Laterality Date 2D ECHO (EXEP) 06/21/2020 EF=40%, mild syst dysf 2D ECHO (EXEP) 04/12/2021 EF=45%, mild syst dysf, trival IN, TI 2D ECHO (EXEP) 08/08/2021 EF=45%, no significant valve disease ANKLE ARTHROSCOPY/SURGERY Right ECHO LVEF 37% ECHOCARDIOGRAM 05/29/2017 LEXISCAN STRESS TEST 06/21/2020 EF=41% , changes consistent with previous IN, no new reversible ischemic areas. PAST SURGICAL [...] Mother 65 Coronary Artery Disease Father from [place] age 60 other (Sudden ) Father other [...] skin changes (more content not included)... Normal [facility] CNOVon 11-21-2024 CNOV Office Visit ([facility] ) ROMI RODRIGEZ ([id number]) 1985 F Date Time Provider Department 11/21/24 [...] a z-eddie since she was going to [facility]. Patient has been having pain in her [...] Obesity, Class III, BMI 40-49.9 (morbid obesity) ([facility]) 08/15/2022 PCOS (polycystic ovarian syndrome) 03/14/2016 PMH - PAST MEDICAL HISTORY OF radioactive iiodine Postprocedural hypothyroidism 04/23/2003 Seasonal allergies 07/26/2021 Takotsubo cardiomyopathy 03/14/[address] Trevino Previous Surgical History PAST SURGICAL HISTORY Procedure Laterality Date 2D ECHO (EXEP) 06/21/2020 EF=40%, mild syst dysf 2D ECHO (EXEP) 04/12/2021 EF=45%, mild syst dysf, trival IN, TI 2D ECHO (EXEP) 08/08/2021 EF=45%, no significant valve disease ANKLE ARTHROSCOPY/SURGERY Right ECHO LVEF 37% ECHOCARDIOGRAM 05/29/2017 LEXISCAN STRESS TEST 06/21/2020 EF=41% , changes consistent with previous IN, no new reversible ischemic areas. PAST SURGICAL [...] Mother 65 Coronary Artery Disease Father from [place] age 60 other (Sudden ) Father other [...] Zoloft [Sertralin (more content not included)... Normal [facility] Lipid Profileon 11-04-2024 Cholesterol [Mass/Vol] 181 mg/dL Normal 200 [facility] Comment on above: Result Comment: <200 mg/dL Desirable 200-240 mg/dL Borderline >240 mg/dL High Risk Performed By: #### L 500.4100, L501.9520 #### [facility] [address] [place], [address] Cholesterol in HDL [Mass/Vol] 69 mg/dL Normal [facility] Comment on above: Result Comment: The drugs N-Acetylcysteine and Metamizole may falsely depress this assay. Reference Range HDL <40 mg/dL Low HDL Cholesterol HDL >or= 60 mg/dL High HDL Cholesterol Performed By: #### L 500.4100, L501.9520 #### [facility] [address] [place], [address] Cholesterol in LDL [Mass/Vol] 82 mg/dL Normal 0-130 [facility] Comment on above: Performed By: #### L 500.4100, L501.9520 #### [facility] [address] [place], [address] Cholesterol in VLDL [Mass/Vol] 30 mg/dL Normal 5-40 [facility] Comment on above: Performed By: #### L 500.4100, L501.9520 #### [facility] [address] [place], [address] Triglyceride [Mass/Vol] 152 mg/dL Normal [facility] Comment on above: Result Comment: The drugs N-Acetylcysteine and Metamizole may falsely depress this assay. Serum Triglycerides Reference Interval Normal <150 mg/dL Borderline high 150 - 199 mg/dL High 200 - 499 mg/dL Very High > or = 500 mg/dL Performed By: #### L 500.4100, L501.9520 #### [facility] [address] [place], [address] Office Visit Reporton 2024 Office Visit Report [facility] [address] [place] [address] OFFICE VISIT Date of Service: 11/04/24 MR#: [id number] Acct: [id number] Patient: ROMI RODRIGEZ Rep #: [id number] : 1985 Provider: BRY Ellison Age/Sex: 39/F Location: [facility] Status: Signed Employer Purchased Covid Test Note: Patient here today for Covid Testing, requested by their Employer. Assessment and Plan Assessment and Plan Orders: Orders POC Cepheid Covid, FluAB, RSV Today 11/16/24 0645 Date Sahil LONDONO Cosigner Signature: Date (if applicable) CC: Normal [facility] Thyroid Stim Hormone (TSH)on 11-04-2024 TSH 0.952 uIU/mL Normal 0.358-3.740 [facility] Comment on above: Performed By: #### L 500.4100, L501.9520 #### [facility] [address] [place], [address] Urgent Care Visit Reporton 0 11-04-2024 Urgent Care Visit Report [facility] [address], [address] [place] [address] OFFICE VISIT Date of Service: 11/04/24 MR#: [id number] Acct: [id number] Name: ROMI RODRIGEZ Rep #: [id number] : 1985 Provider: BRY Ellison Age/Sex: 39/F Location: [facility] Status: Signed Intake Vital Signs 07/22/24 15:47 [...] Complaint: cough, ST, chest/nasal congest, right ear 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 denies fever [facility] Medical History Cellulitis of right knee ELAINE [...] Effort Inspection: (more content not included)... [facility] ([facility]) RODRIGEZROMI AGUIRRE ([id number]) 1985 F Date Time Provider Department 09/01/24 [...] for screening (more content not included)... Normal [facility] MR/BMS.BPon 07-22-2024 MR/BMS.BP [address], [address] [place] [id number] OFFICE VISIT Date of Service: 07/22/24 MR#: [id number] Acct: [id number] Name: ROMI RODRIGEZ Rep #: [id number] : 1985 Provider: Dr. Sahil Deleon se, DO Age/Sex: 39/F Location: [facility] Status: Signed Intake Vital Signs 01/23/24 16:17 [...] that she (more content not included)... Normal [facility] Urgent Care Visit Reporton 0 06-22-2024 Urgent Care Visit Report [facility] [address], [address] [place] [address] OFFICE VISIT Date of Service: 06/22/24 MR#: [id number] Acct: [id number] Name: ROMI RODRIGEZ Rep #: [id number] : 1985 Provider: BRY Ellison Age/Sex: 38/F [facility] [facility] Status: Signed Intake Vital Signs 04/30/24 15:02 [...] (Verified 04/30/24 15:04) heart racing, face redness PFSH Medical History (Updated 06/22/24 @ 16:11 by [...] No complaints of fever, chills, sweats. No [id number] products taken to assist, except the application [...] Patient stat (more content not included)... Normal [facility] L/S Spine Min 4 Viewson 04-07-2023 L/S Spine Min 4 Views [facility] Imaging Services [address] [place] [address] L/S Spine Min 4 Views MR#: [id number] Acct: [id number] Name: ROMI RODRIGEZ Rep #: [id number] : 1985 F 38 From: Surendra Márquez MD PCP: Dr. Isael Fish MD Status: REG CLI Study: L/S Spine Min 4 Views Date of Exam: 04/30/24 Exam# [id number] Ordering Dr: [place] [id number] STUDY: X-RAY - LUMBAR SPINE REASON FOR [...] Claus Montero MD; Dr. Isael Fish MD Pollution Control Chemist: Signed Normal [facility] Orthopedic Visit Reporton Orthopedic Visit Report [facility] [address] [place] [address] OFFICE VISIT Date of Service: 04/30/24 MR#: [id number] Acct: [id number] Name: ROMI RODRIGEZ Rep #: [id number] : 1985 Provider: Dr. Claus Montero MD Age/Sex: 38/F Location: [facility] Status: Signed Intake Vital Signs 01/23/24 16:17 [...] SPINE Details: Th (more content not included)... [facility] ROMI RODRIGE[facility] ([id number]) 1985 F Date Time Provider Department 04/21/24 ISAEL FISH [facility] During your visit today, we recorded [...] a pain management provider 3) see a performance improvement specialist ( not sure who did her surgery) Evelina Peter MA 04/22/2024 9:54 AM Addendum Patient notified and voiced understanding. Evelina Peter MA Patient does feel it is coming from her back. Her Surgeon was Dr. Jose MARTIN. She also has an appointment with Dr. Montero at [facility]. HUNTER Yarbrough Jeffrey A, MD 04/22/2024 1:02 PM Signed Please fax EMG reports to DR. Montero at [facility] and let patient know we did this. [...] ovarian syndr (more content not included)... [facility] (FAMPWS) RODRIGEZROMI AGUIRRE ([id number]) 1985 F Date Time Provider Department 03/26/24 ISAEL FISH During your visit today, we recorded the following information about you: Marina Davila LPN 03/26/2024 7:31 AM Signed Received lab results ordered by pcp. Marina Davila LPN Scan on 03/25/2024 5:35 PM by Provider, External, PAKierraC: Miscellaneous Lab Allergies As of Date: 03/26/2024 [...] BMI 40-49.9 (morbid obesity*08/15/2022 Cardiomyopathy (HCC) [I42.9] (more content not included)... Normal [facility] 03-24-2024 [facility] Telephone (FAMPWS) ROMI RODRIGEZ ([id number]) 1985 F Date Time Provider Department 03/24/24 ISAEL FISH During your visit today, we recorded the following information about you: Marina Davila LPN 03/24/2024 1:59 PM Signed Received labs results from [facility] ordered by pcp. Marina Davila LPN Scan [...] for screeni (more content not included)... Normal [facility] CNOVon 03-18-2024 CNOV Office Visit (FAMPWS ) ROMI RODRIGEZ ([id number]) 1985 F Date Time Provider Department 03/18/24 [...] her teen's Mixed hyperlipidemia 03/14/2016 Multiple sclerosis ([facility]) 12/16/[address] Downing-Santos Neuro Muscle spasm 12/16/2019 Related to MS. On Clonopin Obesity, Class II, BMI 35-39.9 08/15/2022 Obesity, Class III, BMI 40-49.9 (morbid obesity) ([facility]) 08/15/2022 PCOS (polycystic ovarian syndrome) 03/14/2016 PMH - PAST MEDICAL HISTORY OF radioactive iiodine Postprocedural hypothyroidism 04/23/2003 Seasonal allergies 07/26/2021 Takotsubo cardiomyopathy 03/14/[address] Trevino Previous Surgical History PAST SURGICAL HISTORY Procedure Laterality Date 2D ECHO (EXEP) 06/21/2020 EF=40%, mild syst dysf 2D ECHO (EXEP) 04/12/2021 EF=45%, mild syst dysf, trival IN, TI 2D ECHO (EXEP) 08/08/2021 EF=45%, no significant valve disease ANKLE ARTHROSCOPY/SURGERY Right ECHO LVEF 37% ECHOCARDIOGRAM 05/29/2017 LEXISCAN STRESS TEST 06/21/2020 EF=41% , changes consistent with previous IN, no new reversible ischemic areas. PAST SURGICAL [...] Mother 65 Coronary Artery Disease Father from [place] age 60 other (Sudden ) Father other [...] clonazePAM ( (more content not included)... Normal [facility] FERRITIN BLDon 08-30-2023 Ferritin [Mass/Vol] 42 ng/mL 8 - 252 [facility] INSULIN, FREEon 08-30-2023 Insulin 13 2.6 - 37.6 [facility] IRON PANEL (OUTSIDE)on 08-30 Iron % Saturation 29.2 15 - 55 [facility] Iron [Mass/Vol] 119 ug/dL 50 - 170 [facility] TIBC 408 250 - 450 [facility] LIPID PANEL (EXTERNAL)on HDC-L 70 mg/dL Abnormal 41 mg/dL [facility] LDL Chol, calculated 97 MG/DL 130 MG/DL [facility] VLDL 47 Ratio Abnormal 5 - 40 Ratio [facility] LIPID PANEL (OUTSIDE)on 08-08 Cholesterol in HDL [Mass/Vol] 70 mg/dL 50 [facility] Cholesterol in LDL [Mass/Vol] 97 mg/dL 130 [facility] LDL:HDL Ratio [facility] Non-HDL Cholesterol [facility] TC:HDL Ratio [facility] VLDL Cholesterol [facility] Laboratory - Chemistry and C hemistry - challengeon 08-30-2023 Cholesterol [Mass/Vol] 214 mg/dL Abnormal 200 [facility] Triglyceride [Mass/Vol] 236 mg/dL Abnormal 150 [facility] Laboratory - Hematology and Cell countson 08-30-2023 HbA1c (Bld) [Mass fraction] 5.1 % 0 - 5.7 % [facility] TSH (EXTERNAL)on 08-30-2023 TSH 11.00 IU/ml Abnormal 0.358 - 3.74 IU/ml [facility] TSH 11.0 IU/ml Abnormal 0.358 - 3.72 IU/ml [facility] CBC W/DIFF/PLT (EXTERNAL LAB NIKUNJ)on 02-22-2023 BASO ABSOLUTE [facility] Basophils/100 WBC (Bld) 0.5 % [facility] EOS ABSOLUTE [facility] Eosinophils/100 WBC (Bld) 2.3 % [facility] Erythrocyte distribution width (RBC) [Ratio] 12.8 % 12.3 - 15.4 % [facility] Hematocrit (Bld) [Volume fraction] 37 % Abnormal 37.5 - 51.0 % [facility] Hemoglobin (Bld) [Mass/Vol] 12.8 g/dL 12.6 - 17.7 g/dL [facility] Immature Gran % [facility] IMMATURE GRANS ABSOLUTE [facility] Lymphocytes (Bld) [#/Vol] 1.12 10*3/uL 0.7 - 3.1 k/uL [facility] Lymphocytes/100 WBC (Bld) 26.0 % [facility] MCH 29.8 Pg 26.6 - 33 Pg [facility] MCHC (RBC) [Mass/Vol] 34.6 g/dL 31.5 - 35.7 g/dL [facility] MCV (RBC) [Entitic vol] 86.2 fL 79 - 97 fL [facility] MONOCYTES ABSOLUTE [facility] Monocytes/100 WBC (Bld) 8.6 % [facility] NEUTROPHILS ABSOLUTE 2.7 k/uL 1.4 - 7 .0 k/uL [facility] Neutrophils/100 WBC (Bld) 62.4 % [facility] Platelets (Bld) [#/Vol] 267 10*3/uL 150 - 379 k/uL [facility] RBC (Bld) [#/Vol] 4.29 10*6/uL 4.14 - 5.8 0 M/uL [facility] WBC (Bld) [#/Vol] 4.3 10*3/uL 3.4 - 10.8 K/uL [facility] CMP (EXTERNAL)on 02-22-2023 Albumin [Mass/Vol] 3.4 g/dL 3.2 - 4.6 gm/dL [facility] Alk Phos Total 56 U/L 45 - 117 U/L [facility] ALT [Catalytic activity/Vol] 23 U/L 12 - 78 U/L [facility] AST [Catalytic activity/Vol] 17 U/L 8 - 37 U/L [facility] Bili Total 0.3 mg/dL 0.2 - 1 mg/dL [facility] Calcium [Mass/Vol] 8.9 mg/dL 8.5 - 10. 1 mg/dL [facility] Chloride [Moles/Vol] 105 mmol/L 98 - 10 7 MEQ/L [facility] CO2 [Moles/Vol] 25 mmol/L 21 - 32 MEQ/L [facility] Creatinine [Mass/Vol] 0.65 mg/dL 0.6 - 1.3 MG/DL [facility] GFR AFR AMER 131 mL/MIN [facility] GFR/1.73 sq M.predicted among non-blacks MDRD (S/P/Bld) [Vol rate/Area] 108 mL/min/{1.73_m2} [facility] Glucose [Mass/Vol] 95 mg/dL 74 - 106 MG/DL [facility] Phosphate (Bld) [Moles/Vol] 3.7 2.5 - 4.9 [facility] Potassium [Moles/Vol] 4.2 mmol/L 3.5 - 5.1 mmol/L [facility] Protein [Mass/Vol] 7.6 g/dL 6.4 - 8.2 gm/dL [facility] Sodium [Moles/Vol] 137 mmol/L 136 - 145 mmol/L [facility] Urea nitrogen [Mass/Vol] 13 mg/dL 7 - 18 MG/DL [facility] HEMOGLOBIN A1C (EXTERNAL)on 02-22-2023 HbA1c (d) [Mass fraction] 4.8 % 0 - 5.7 % [facility] LIPID PANEL (OUTSIDE)on 02-04 Cholesterol [Mass/Vol] 191 mg/dL 200 [facility] Cholesterol in HDL [Mass/Vol] 76 mg/dL 50 [facility] Cholesterol in LDL [Mass/Vol] 147 mg/dL Abnormal 92 [facility] LDL:HDL Ratio [facility] Non-HDL Cholesterol [facility] TC:HDL Ratio [facility] Triglyceride [Mass/Vol] 116 mg/dL 150 [facility] VLDL Cholesterol [facility] Magnesium [Mass/Vol]on 02-22 Magnesium.plasma/Magn esium.RBC (Bld) [Molar ratio] 2.1 1.6 - 2.6 [facility] TSH (EXTERNAL)on 02-22-2023 TSH Qn 0.69 m[IU]/L 0.358 - 3.74 IU/ml [facility] VITAMIN B12 BLOODon 02-23-20 Cobalamin (Vitamin B12) [Mass/Vol] 518 pg/mL 211 - 911 [facility] Absolute lymphocyte counton 09-21-2022 Lymphocytes Auto (Unsp spec) [#/Vol] 1.52 10*3/uL 0.83-4.51 [facility] Work Phone: Basophil percentageon 2021 Basophils/100 WBC (Bld) 0.2 % 0-1 [facility] Work Phone: Chloride [Moles/Vol] 103 mmol/L 98-107 [facility]: Eosinophils/100 WBC (Bld) 2.5 % 0-5 [facility] Work Phone: Glucose [Mass/Vol] 92 mg/dL 74-106 [facility] Work Phone: Neutrophils (Bld) [#/Vol] 2.7 10*3/uL 2.0-7.7 [facility] Work Phone: Neutrophils/100 WBC (Bld) 55.7 % 47-70 [facility] Work Phone: Potassium [Moles/Vol] 3.8 mmol/L 3.5-5.1 [facility] Work [facility]: Sodium [Moles/Vol] 136 mmol/L 136-145 [facility] Work Phone: WBC (Bld) [#/Vol] 4.9 10*3/uL 4.4-11.0 [facility] Work Phone: Blood erythrocytes count (nu mber/volume)on 09-21-2022 RBC (Bld) [#/Vol] 4.74 10*6/uL 4.2-5.4 [facility]: Blood hemoglobin measurement (mass/volume)on 09-21-2022 Hemoglobin (Bld) [Mass/Vol] 13.6 g/dL 12.0-15.0 [facility] Work Phone: Blood lymphocytes/100 leukoc yteson 09-21-2022 Lymphocytes/100 WBC (Bld) 31.3 % 19-41 [facility] Work Phone: Blood monocytes/100 leukocyt eson 09-21-2022 Monocytes/100 WBC (Bld) 10.1 % 0-10 [facility] Work Phone: Blood platelet mean volumeon 09-21-2022 Platelet mean volume (Bld) [Entitic vol] 9.6 fL 6.2-12.0 [facility] Work Phone: Determination of erythrocyte mean corpuscular volume (MCV)on 09-21-2022 MCV (RBC) [Entitic vol] 85.7 fL 81-99 [facility] Work Phone: Hematocrit Auto (Bld) [Volum e fraction]on 09-21-2022 Hematocrit (Bld) [Volume fraction] 40.6 % 37-47 [facility] Work Phone: Laboratory - Chemistry and C hemistry - challengeon 09-21-2022 CO2 [Moles/Vol] 27.0 mmol/L 21.0-32.0 [facility] Work Phone: Urea nitrogen/Creatinine [Mass ratio] 23.3 mg/mg 10-20 [facility] Work Phone: Laboratory - Hematology and Cell countson 09-21-2022 Erythrocyte distribution width (RBC) [Entitic vol] 40.1 fL 35.1-43.9 [facility] Work Phone: Erythrocyte distribution width (RBC) [Ratio] 12.9 % 11.6-14.6 [facility] Work Phone: Immature granulocytes/100 WBC (Bld) 0.200 % 0.0-0.9 [facility] Work Phone: Comment on above: IG% - Immature Granu locytes (promyelocytes, myelocytes and metamyelocytes) > 1% indicates that a LEFT SHIFT is Present. MCH (RBC) [Entitic mass] 28.7 pg 27.0-32.0 [facility] Work Phone: Nucleated RBC/100 WBC (Bld) [Ratio] 0 % 0-5 [facility] Work Phone: MCHC Auto (RBC) [Mass/Vol]on 09-21-2022 MCHC (RBC) [Mass/Vol] 33.5 g/dL 32-36 [facility] Work Phone: No Panel Informationon 09-21 Estimated Creatinine Clearance Calc 123.33 ml/min [facility] Work Phone: Estimated GFR (MDRD) Amer 132 mL/min >60 [facility] Work Phone: Comment on above: GFR Calc Estimated GFR (MDRD) Non-Af Amer 109 mL/min >60 [facility] Work Phone: Comment on above: Non- GFR Calc Troponin I High Sensitivity 4 pg/mL 3.0-54.0 [facility] Work Phone: Comment on above: Please Note: New Carlos t Units and Gender Specific Reference Ranges. For more information see Policy Stat Procedure [place] High Sensitivity Troponin (TNIH) and attachments. Platelets bldon 09-21-2022 Platelets (Bld) [#/Vol] 287 10*3/uL 150-450 [facility] Work Phone: Serum or plasma calcium abdullahi urement (mass/volume)on 09-21-2022 Calcium [Mass/Vol] 9.3 mg/dL 8.5-10.1 [facility] Work Phone: Serum or plasma creatinine m easurement (mass/volume)on 09-21-2022 Creatinine [Mass/Vol] 0.64 mg/dL 0.55-1.02 [facility] Work Phone: Comment on above: The validity of the calculated GFR & GFRAA in patients over 70 years has not been determined. Clinical correlation is essential. Serum or plasma urea nitroge n measurement (mass/volume)on 09-21-2022 Urea nitrogen [Mass/Vol] 15 mg/dL 7-18 [facility] Work Phone: Thin prep Papanicolaou smear with manual screeningon 09-21-2022 Thin prep Papanicolaou smear with manual screening 6 5-15 [facility] Work Phone: Absolute lymphocyte counton 08-14-2022 Lymphocytes Auto (Unsp spec) [#/Vol] 1.26 10*3/uL 0.83-4.51 [facility] Work Phone: Absolute reticulocyte counto n 08-14-2022 Reticulocytes (Bld) [#/Vol] 0.00 10*3/uL 0-5 [facility] Work Phone: BMP - EXTERNALon 08-14-2022 ANION GAP [facility] BICARBONATE [facility] GFR AFR AMER 131 mL/MIN [facility] Urea Nitrogen [facility] Basophil percentageon 2021 Amylase [Catalytic activity/Vol] 73 U/L 25-115 [facility] Work Phone: Basophil percentage 3.5 mg/dL 2.5-4.9 [facility] Work Phone: Bilirubin [Mass/Vol] 0.50 mg/dL 0.20-1.00 [facility] Work Phone: Comment on above: For patients on eltr ombopag therapy, use of Dimension [place] TBIL is not recommended. Bilirubin [Mass/Vol] 0.30 mg/dL 0.20-1.00 [facility] Work Phone: Comment on above: For patients on eltr ombopag therapy, use of Dimension [place] TBIL is not recommended. Chloride [Moles/Vol] 101 mmol/L 98-107 [facility] Cholesterol [Mass/Vol] 232 mg/dL <200 [facility] Comment on above: <200 mg/dL Desirable 200-240 mg/dL Borderline >240 mg/dL High Risk Glucose [Mass/Vol] 86 mg/dL 74-106 [facility] Neutrophils (Bld) [#/Vol] 3.2 10*3/uL 2.0-7.7 [facility] Work Phone: Potassium [Moles/Vol] 4.0 mmol/L 3.5-5.1 [facility] Protein [Mass/Vol] 8.3 g/dL 6.4-8.2 [facility] Protein [Mass/Vol] 8.4 g/dL 6.4-8.2 [facility] Work Phone: Sodium [Moles/Vol] 137 mmol/L 136-145 [facility] Triglyceride [Mass/Vol] 106 mg/dL <199 [facility] Comment on above: The drugs N-Acetylcy steine and Metamizole may falsely depress this assay.Serum Triglycerides Reference Interval Normal <150 mg/dL Borderline high 150 - 199 mg/dL High 200 - 499 mg/dL Very High > or = 500 mg/dL WBC (Bld) [#/Vol] 5.0 10*3/uL 4.4-11.0 [facility] Work Phone: Blood erythrocytes count (nu mber/volume)on 08-14-2022 RBC (Bld) [#/Vol] 4.60 10*6/uL 4.2-5.4 [facility] Work Phone: Blood hemoglobin measurement (mass/volume)on 08-14-2022 Hemoglobin (Bld) [Mass/Vol] 13.3 g/dL 12.0-15.0 [facility] Work Phone: Blood platelet mean volumeon 08-14-2022 Platelet mean volume (Bld) [Entitic vol] 10.3 fL 6.2-12.0 [facility] Work Phone: CMP (EXTERNAL)on 08-14-2022 Alk Phos Total 55 U/L 45 - 117 U/L [facility] AST [Catalytic activity/Vol] 18 U/L 8 - 37 U/L [facility] Bili Total 0.3 mg/dL 0.2 - 1 mg/dL [facility] Direct Bilirubin 0.1 0.0 - 0.3 [facility] GFR AFR AMER [facility] Phosphate (Bld) [Moles/Vol] 3.5 2.5 - 4.9 [facility] Determination of erythrocyte mean corpuscular volume (MCV)on 08-14-2022 MCV (RBC) [Entitic vol] 87.4 fL 81-99 [facility] Work Phone: Direct bilirubinon 2 Bilirubin.direct [Mass/Vol] 0.11 mg/dL 0.00-0.30 [facility] Work Phone: Bilirubin.direct [Mass/Vol] 0.10 mg/dL 0.00-0.30 [facility] Work Phone: Hematocrit Auto (Bld) [Volum e fraction]on 08-14-2022 Hematocrit (Bld) [Volume fraction] 40.2 % 37-47 [facility] Work Phone: LDH PLASMAon 08-14-2022 LDH 164 84 - 246 [facility] LIPID PANEL (OUTSIDE)on LDL:HDL Ratio [facility] Non-HDL Cholesterol [facility] TC:HDL Ratio [facility] VLDL Cholesterol [facility] Laboratory - Chemistry and C hemistry - challengeon 08-14-2022 ALP [Catalytic activity/Vol] 55 U/L 45-117 [facility] Work Phone: ALT [Catalytic activity/Vol] 24 U/L 13-56 [facility] Cholesterol.total/Cho lesterol in HDL [Mass ratio] 2.40 {ratio} [facility] Work Phone: CO2 [Moles/Vol] 27.0 mmol/L 21.0-32.0 [facility] Globulin (S) [Mass/Vol] 4.4 g/dL 2.2-4.2 [facility] Work Phone: Lipase [Catalytic activity/Vol] 136 U/L 73-393 [facility] Work Phone: [phone] Urate [Mass/Vol] 3.7 mg/dL 2.6-6.0 [facility] Comment on above: The drugs N-Acetylcy steine and Metamizole may falsely depress this assay. Urea nitrogen/Creatinine [Mass ratio] 20.0 mg/mg 10-20 [facility] Work Phone: [phone] GFR/1.73 sq M.predicted among non-blacks MDRD (S/P/Bld) [Vol rate/Area] 108 mL/min/{1.73_m2} [facility] Laboratory - Hematology and Cell countson 08-14-2022 Erythrocyte distribution width (RBC) [Entitic vol] 40.4 fL 35.1-43.9 [facility] Work Phone: Erythrocyte distribution width (RBC) [Ratio] 12.9 % 11.6-14.6 [facility] Work Phone: MCH (RBC) [Entitic mass] 28.9 pg 27.0-32.0 [facility] Work Phone: Nucleated RBC/100 WBC (Bld) [Ratio] 0 % 0-5 [facility] Work Phone: MCHC Auto (RBC) [Mass/Vol]on 08-14-2022 MCHC (RBC) [Mass/Vol] 33.1 g/dL 32-36 [facility] Work Phone: No Panel Informationon 08-14 Estimated GFR (MDRD) Amer 131 mL/min >60 [facility] Work Phone: Comment on above: GFR Calc Estimated GFR (MDRD) Non-Af Amer 108 mL/min >60 [facility] Work Phone: Comment on above: Non- GFR Calc Thyroid Stimulating Hormone (TSH) 1.06 uIU/mL 0.358-3.74 [facility] Work Phone: Platelets bldon 08-14-2022 Platelets (Bld) [#/Vol] 302 10*3/uL 150-450 [facility] Work Phone: Segmented neutrophils/100 WB C Auto (Bld)on 08-14-2022 Segmented neutrophils/100 WBC (Bld) 62.7 % 47-70 [facility] Work Phone: Serum or plasma albumin abdullahi urement (mass/volume)on 08-14-2022 Albumin [Mass/Vol] 3.9 g/dL 3.2-5.0 [facility] Albumin [Mass/Vol] 4.0 g/dL 3.2-5.0 [facility] Work Phone: Serum or plasma albumin/glob ulin mass ratioon 08-14-2022 Albumin/Globulin [Mass ratio] 0.9 {ratio} 0.9-2.4 [facility] Work Phone: Serum or plasma calcium abdullahi urement (mass/volume)on 08-14-2022 Calcium [Mass/Vol] 9.2 mg/dL 8.5-10.1 [facility] Serum or plasma cholesterol in HDL measurement (mass/volume)on 08-14-2022 Cholesterol in HDL [Mass/Vol] 96 mg/dL >40 [facility] Comment on above: The drugs N-Acetylcy steine and Metamizole may falsely depress this assay. Reference Range HDL <40 mg/dL Low HDL Cholesterol HDL >or= 60 mg/dL High HDL Cholesterol Serum or plasma cholesterol in VLDL measurement (mass/volume)on 08-14-2022 Cholesterol in VLDL [Mass/Vol] 21 mg/dL 5-40 [facility] Work Phone: Serum or plasma creatinine m easurement (mass/volume)on 08-14-2022 Creatinine [Mass/Vol] 0.65 mg/dL 0.55-1.02 [facility] Comment on above: The validity of the calculated GFR & GFRAA in patients over 70 years has not been determined. Clinical correlation is essential. Serum or plasma low density lipoprotein (LDL) cholesterol measurement (mass/volume)on 08-14-2022 Cholesterol in LDL [Mass/Vol] 115 mg/dL 0-130 [facility] Serum or plasma urea nitroge n measurement (mass/volume)on 08-14-2022 Urea nitrogen [Mass/Vol] 13 mg/dL 7-18 [facility] TSH (EXTERNAL)on 08-14-2022 TSH 1.06 IU/ml 0.358 - 3.74 IU/ml [facility] Thin prep Papanicolaou smear with manual screeningon 08-14-2022 Thin prep Papanicolaou smear with manual screening 16 U/L [facility] Work Phone: Thin prep Papanicolaou smear with manual screening 18 U/L [facility] Work Phone: Thin prep Papanicolaou smear with manual screening 9 5-15 [facility] Work Phone: Thin prep Papanicolaou smear with manual screening 164 U/L 84-246 [facility] Work Phone: Absolute lymphocyte counton 06-21-2022 Lymphocytes Auto (Unsp spec) [#/Vol] 0.95 10*3/uL 0.83-4.51 [facility] Work Phone: Basophil percentageon 2021 Amylase [Catalytic activity/Vol] 61 U/L 25-115 [facility] Work Phone: Basophils/100 WBC (Bld) 0.6 % 0-1 [facility] Work Phone: Bilirubin [Mass/Vol] 0.30 mg/dL 0.20-1.00 [facility] Work Phone: Comment on above: For patients on eltr ombopag therapy, use of Dimension [place] TBIL is not recommended. Eosinophils/100 WBC (Bld) 1.7 % 0-5 [facility] Work Phone: Neutrophils (Bld) [#/Vol] 3.6 10*3/uL 2.0-7.7 [facility] Work Phone: Neutrophils/100 WBC (Bld) 68.7 % 47-70 [facility] Work Phone: Protein [Mass/Vol] 8.1 g/dL 6.4-8.2 [facility] Work Phone: WBC (Bld) [#/Vol] 5.3 10*3/uL 4.4-11.0 [facility] Work Phone: Blood erythrocytes count (nu mber/volume)on 06-21-2022 RBC (Bld) [#/Vol] 4.52 10*6/uL 4.2-5.4 [facility] Work Phone: Blood hemoglobin measurement (mass/volume)on 06-21-2022 Hemoglobin (Bld) [Mass/Vol] 13.4 g/dL 12.0-15.0 [facility] Work Phone: Blood lymphocytes/100 leukoc yteson 06-21-2022 Lymphocytes/100 WBC (Bld) 18.0 % 19-41 [facility] Work Phone: Blood monocytes/100 leukocyt eson 06-21-2022 Monocytes/100 WBC (Bld) 10.8 % 0-10 [facility] Work Phone: Blood platelet mean volumeon 06-21-2022 Platelet mean volume (Bld) [Entitic vol] 10.3 fL 6.2-12.0 [facility] Work Phone: Determination of erythrocyte mean corpuscular volume (MCV)on 06-21-2022 MCV (RBC) [Entitic vol] 87.2 fL 81-99 [facility] Work Phone: Direct bilirubinon 2 Bilirubin.direct [Mass/Vol] 0.08 mg/dL 0.00-0.30 [facility] Work Phone: Hematocrit Auto (Bld) [Volum e fraction]on 06-21-2022 Hematocrit (Bld) [Volume fraction] 39.4 % 37-47 [facility] Work Phone: Laboratory - Chemistry and C hemistry - challengeon 06-21-2022 ALP [Catalytic activity/Vol] 51 U/L 45-117 [facility] Work Phone: ALT [Catalytic activity/Vol] 21 U/L 13-56 [facility] Work Phone: Globulin (S) [Mass/Vol] 4.5 g/dL 2.2-4.2 [facility] Work Phone: Lipase [Catalytic activity/Vol] 133 U/L 73-393 [facility] Work Phone: Laboratory - Hematology and Cell countson 06-21-2022 Erythrocyte distribution width (RBC) [Entitic vol] 39.9 fL 35.1-43.9 [facility] Work Phone: Erythrocyte distribution width (RBC) [Ratio] 12.5 % 11.6-14.6 [facility] Work Phone: Immature granulocytes/100 WBC (Bld) 0.200 % 0.0-0.9 [facility] Work Phone: [phone] Comment on above: IG% - Immature Granu locytes (promyelocytes, myelocytes and metamyelocytes) > 1% indicates that a LEFT SHIFT is Present. MCH (RBC) [Entitic mass] 29.6 pg 27.0-32.0 [facility] Work Phone: Nucleated RBC/100 WBC (Bld) [Ratio] 0 % 0-5 [facility] Work Phone: MCHC Auto (RBC) [Mass/Vol]on 06-21-2022 MCHC (RBC) [Mass/Vol] 34.0 g/dL 32-36 [facility] Work Phone: Platelets bldon 06-21-2022 Platelets (Bld) [#/Vol] 308 10*3/uL 150-450 [facility] Work Phone: Serum or plasma albumin abdullahi urement (mass/volume)on 06-21-2022 Albumin [Mass/Vol] 3.6 g/dL 3.2-5.0 [facility] Work Phone: Thin prep Papanicolaou smear with manual screeningon 06-21-2022 Thin prep Papanicolaou smear with manual screening 15 U/L 15- [facility] Work Phone: Absolute lymphocyte counton 01-26-2022 Lymphocytes Auto (Unsp spec) [#/Vol] 1.14 10*3/uL 0.83-4.51 [facility] Work Phone: Basophil percentageon 2021 Basophil percentage 0 SEEN /hpf [facility] Work Phone: Basophils/100 WBC (Bld) 0.4 % 0-1 [facility] Work Phone: Bilirubin [Mass/Vol] 0.30 mg/dL 0.20-1.00 [facility] Work Phone: Comment on above: For patients on eltr ombopag therapy, use of Dimension [place] TBIL is not recommended. Chloride [Moles/Vol] 103 mmol/L 98-107 [facility] Work Phone: Cholesterol [Mass/Vol] 181 mg/dL <200 [facility] Work Phone: Comment on above: <200 mg/dL Desirable 200-240 mg/dL Borderline >240 mg/dL High Risk Eosinophils/100 WBC (Bld) 2.2 % 0-5 [facility] Work Phone: Glucose [Mass/Vol] 106 mg/dL 74-106 [facility] Work Phone: Comment on above: Fasting Glucose resu lt from 100 to 125 mg/dL suggests IMPAIRED HOMEOSTASIS per A.D.A. criteria. Neutrophils (Bld) [#/Vol] 3.2 10*3/uL 2.0-7.7 [facility] Work Phone: Neutrophils/100 WBC (Bld) 63.7 % 47-70 [facility] Work Phone: Potassium [Moles/Vol] 4.2 mmol/L 3.5-5.1 [facility] Work Phone: Protein [Mass/Vol] 7.9 g/dL 6.4-8.2 [facility] Work Phone: Sodium [Moles/Vol] 137 mmol/L 136-145 [facility] Work Phone: Triglyceride [Mass/Vol] 119 mg/dL [facility] Work Phone: Comment on above: The drugs N-Acetylcy steine and Metamizole may falsely depress this assay.Serum Triglycerides Reference Interval Normal <150 mg/dL Borderline high 150 - 199 mg/dL High 200 - 499 mg/dL Very High > or = 500 mg/dL WBC (Bld) [#/Vol] 5.1 10*3/uL 4.4-11.0 [facility] Work Phone: Bilirubin Test strip Ql (U)o n 01-26-2022 Bilirubin Ql (U) Negative Negative [facility] Work Phone: Blood erythrocytes count (nu mber/volume)on 01-26-2022 RBC (Bld) [#/Vol] 4.52 10*6/uL 4.2-5.4 [facility] Work Phone: Blood hemoglobin measurement (mass/volume)on 01-26-2022 Hemoglobin (Bld) [Mass/Vol] 13.2 g/dL 12.0-15.0 [facility] Work Phone: Blood lymphocytes/100 leukoc yteson 01-26-2022 Lymphocytes/100 WBC (Bld) 22.6 % 19-41 [facility] Work Phone: Blood monocytes/100 leukocyt eson 01-26-2022 Monocytes/100 WBC (Bld) 10.9 % 0-10 [facility] Work Phone: Blood platelet mean volumeon 01-26-2022 Platelet mean volume (Bld) [Entitic vol] 10.2 fL 6.2-12.0 [facility] Work Phone: Determination of erythrocyte mean corpuscular volume (MCV)on 01-26-2022 MCV (RBC) [Entitic vol] 86.5 fL 81-99 [facility] Work Phone: Hematocrit Auto (Bld) [Volum e fraction]on 01-26-2022 Hematocrit (Bld) [Volume fraction] 39.1 % 37-47 [facility] Work Phone: Ketones Test strip Ql (U)on 01-26-2022 Ketones Ql (U) Negative Negative [facility] Work Phone: Laboratory - Chemistry and C hemistry - challengeon 01-26-2022 ALP [Catalytic activity/Vol] 49 U/L 45-117 [facility] Work Phone: ALT [Catalytic activity/Vol] 26 U/L 13-56 [facility] Work Phone: CO2 [Moles/Vol] 29.0 mmol/L 21.0-32.0 [facility] Work Phone: Globulin (S) [Mass/Vol] 4.0 g/dL 2.2-4.2 [facility] Work Phone: [phone] Magnesium [Mass/Vol] 1.9 mg/dL 1.6-2.6 [facility] Work Phone: Urea nitrogen/Creatinine [Mass ratio] 19.5 mg/mg 10-20 [facility] Work Phone: Laboratory - Hematology and Cell countson 01-26-2022 Erythrocyte distribution width (RBC) [Entitic vol] 38.5 fL 35.1-43.9 [facility] Work Phone: Erythrocyte distribution width (RBC) [Ratio] 12.0 % 11.6-14.6 [facility] Work Phone: Immature granulocytes/100 WBC (Bld) 0.200 % 0.0-0.9 [facility] Work Phone: Comment on above: IG% - Immature Granu locytes (promyelocytes, myelocytes and metamyelocytes) > 1% indicates that a LEFT SHIFT is Present. MCH (RBC) [Entitic mass] 29.2 pg 27.0-32.0 [facility] Work Phone: Nucleated RBC/100 WBC (Bld) [Ratio] 0 % 0-5 [facility] Work Phone: MCHC Auto (RBC) [Mass/Vol]on 01-26-2022 MCHC (RBC) [Mass/Vol] 33.8 g/dL 32-36 [facility] Work Phone: Mucus LM Ql (Urine sed)on Mucus Ql (Urine sed) 0 SEEN /hpf [facility] Work Phone: Nitrite Test strip Ql (U)on 01-26-2022 Nitrite Ql (U) Negative Negative [facility] Work Phone: No Panel Informationon 01-26 Estimated GFR (MDRD) Amer 117 mL/min >60 [facility] Work Phone: Comment on above: GFR Calc Estimated GFR (MDRD) Non-Af Amer 97 mL/min >60 [facility] Work Phone: Comment on above: Non- GFR Calc Thyroid Stimulating Hormone (TSH) 1.60 uIU/mL 0.358-3.74 [facility] Work Phone: Platelets bldon 01-26-2022 Platelets (Bld) [#/Vol] 306 10*3/uL 150-450 [facility] Work Phone: Protein Test strip Ql (U)on 01-26-2022 Protein Ql (U) Negative Negative [facility] Work Phone: Serum or plasma albumin abdullahi urement (mass/volume)on 01-26-2022 Albumin [Mass/Vol] 3.9 g/dL 3.2-5.0 [facility] Work Phone: Serum or plasma albumin/glob ulin mass ratioon 01-26-2022 Albumin/Globulin [Mass ratio] 1.0 {ratio} 0.9-2.4 [facility] Work Phone: Serum or plasma calcium abdullahi urement (mass/volume)on 01-26-2022 Calcium [Mass/Vol] 9.0 mg/dL 8.5-10.1 [facility] Work Phone: Serum or plasma cholesterol in HDL measurement (mass/volume)on 01-26-2022 Cholesterol in HDL [Mass/Vol] 67 mg/dL [facility] Work Phone: Comment on above: The drugs N-Acetylcy steine and Metamizole may falsely depress this assay. Reference Range HDL <40 mg/dL Low HDL Cholesterol HDL >or= 60 mg/dL High HDL Cholesterol Serum or plasma cholesterol in VLDL measurement (mass/volume)on 01-26-2022 Cholesterol in VLDL [Mass/Vol] 24 mg/dL 5-40 [facility] Work Phone: Serum or plasma creatinine m easurement (mass/volume)on 01-26-2022 Creatinine [Mass/Vol] 0.72 mg/dL 0.55-1.02 [facility] Work Phone: Comment on above: The validity of the calculated GFR & GFRAA in patients over 70 years has not been determined. Clinical correlation is essential. Serum or plasma low density lipoprotein (LDL) cholesterol measurement (mass/volume)on 01-26-2022 Cholesterol in LDL [Mass/Vol] 90 mg/dL 0-130 [facility] Work Phone: Serum or plasma urea nitroge n measurement (mass/volume)on 01-26-2022 Urea nitrogen [Mass/Vol] 14 mg/dL 7-18 [facility] Work Phone: Squamous epithelial cells de tection in urine sediment by light microscopyon 01-26-2022 Epithelial cells.squamous LM Ql (Urine sed) 0-5 SEEN /hpf [facility] Work Phone: Thin prep Papanicolaou smear with manual screeningon 01-26-2022 Thin prep Papanicolaou smear with manual screening 15 U/L 15-37 [facility] Work Phone: Thin prep Papanicolaou smear with manual screening 5 5-15 [facility] Work Phone: Urine blood detectionon 01-06 RBC Ql (U) Negative Negative [facility] Work Phone: RBC Ql (U) 0 SEEN /hpf [facility] Work Phone: Urine clarityon 01-26-2022 Clarity (U) Sl. Cloudy Clear [facility] Work Phone: Urine color determinationon 01-26-2022 Color (U) Yellow Yellow [facility] Work Phone: Urine glucose detectionon Glucose Ql (U) Normal mg/dl Normal [facility] Work Phone: Urine leukocyte esterase det ection by dipstickon 01-26-2022 Leukocyte esterase Test strip Ql (U) Negative Negative [facility] Work Phone: Urine pHon 01-26-2022 pH (U) 7.0 [pH] [facility] Work Phone: Urine sediment bacteria coun t by microscopy (number/high power field)on 01-26-2022 Bacteria LM.HPF (Urine sed) [#/Area] 0 /[HPF] None Seen [facility] Work Phone: Urine specific gravity measu rementon 01-26-2022 Specific gravity (U) [Rel density] 1.010 [facility] Work Phone: Urobilinogen Auto test strip Ql (U)on 01-26-2022 Urobilinogen Ql (U) Normal mg/dl Normal [facility] Work Phone: Whole blood hemoglobin A1c/t otal hemoglobin ratio (mass fraction)on 01-26-2022 HbA1c (Bld) [Mass fraction] 4.8 % 3.8-5.6 [facility] Work Phone: Comment on above: Normal < 5.7 % Predi abetic 5.7 - 6.4 % Diabetic >or= 6.5 % Please note range changes. Laboratory - Microbiology an d Antimicrobial susceptibilityon 10-19-2021 SARS-CoV-2 (COVID-19) RNA JASE+probe Ql (Unsp spec) Not detected [facility] Work Phone: OBSOLETEon 07-06-2018 OBSOLETE Refill (AGCARDPOB) Ben ZEEROMI ([id number]) 1985 FDate Time Provider Department07/06/18 [facility] During your visit today, we recorded the [...] Made depression worseDate Reviewed: 06/04/2018Reviewed by: Shanna ([facility]) [place] - Fully AssessedReason for Visit: [...] hypertension [I10] INVALID FOR* Priority: AEncounter Number: [id number] Status:Closed by DOMINIQUE IBARRA on 07/08/18 [facility] OBSOLETEon 06-20-2018 OBSOLETE Refill (AGCARDPOB) B ROMI ZEE ([id number]) 1985 [facility] Time Provider Department06/20/18 [facility] FAITH [...] Made depression worseDate Reviewed: 06/04/2018Reviewed by: Shanna ([facility]) [place] - Fully AssessedReason for Visit: [...] hypertension [I10] INVALID FOR* Priority: AEncounter Number: [id number] Status:Closed by MONICA GANNON on 06/20/18 [facility] CNOVniharika 06-04-2018 OV Office Visit (AGCARDPOB) ROMI LOCKWOOD ([id number]) 1985 FDate Time Provider Department06/04/18 3:00 PM SHANNA JARRETT (TELEPHONE COLLECTOR) AGCARDPOB During your visit today, we recorded the following information about you: Pulse Blood pressure Weight Height 92/minute 112/80 123.1 kg 1.753 Jessica Monae CMA 06/04/2018 3:12 PM SignedMrsandhyaRocio Rodrigez is here for a yearly follow [...] pressure-Heart valve problems-Genetic problems with the heart aogwcy-Lwysujekhk-Womwa carlos-Lung diseaseProblems that may worsen or trigger heart failure, especially if your heartmuscle is weak, include:-Severe anemia (a low level of red blood cells)-An overactive or underactive thyroid jdsez-Ocjisjpic-P heartbeat that is too fast or too [...] lie flat in bedbecause of shortness of zusoqu-Krwxlekr-Ksvrknq ankles, feet, and legs-Weight gain caused by [...] to loweryour risk for heart failure.Developed by [employer].Published by [employer].Copyright ?2014 [employer] and/or one of its subsidiaries. 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 Right. Lives alone.PAST MEDICAL HISTORYDiagnosis [...] reduction- PAST SURGICAL HISTORY OF 01/15/2017 micodiscectomy [id number] HistoryProblem Relation Age of Onset- other (diabetes mellitus) Mother- Coronary Artery Disease Father from [place] age 60- other (Sudden ) Father- COPD [...] and doing well. Sheappears euvolemic on exam [place] [employer] functional class II. Sheremains on [...] Made depression worseDate Reviewed: 06/04/2018Reviewed by: [facility]) [place] - Fully AssessedReason for Visit: CARD Follow [...] your risk for heart failure. Developed by [employer]. Published by [employer]. Copyright ?2014 [employer] and/or one of its subsidiaries. All rights reserved.Visit Notes:>> Tarah Mcgraw) Dov SatJun 04, 2018 3:09 PM Status: SignedMrs. [...] 06/04/2019).Follow-up and Disposition History RecordedLetter TextEncounter Number: [id number] Status:Closed by SHANNA JARRETT CNP on 06/04/18 [facility] PROGRESSon 06-04-2018 Protein mass conc HNO ID: [id number]: Shanna (Ba) DayaerService: (none)Author Type: Nurse PractitionerType: Progress NotesFiled: 06/04/2018 3:51 PMNote Text:SubjectiveHPIMrsRocio Rodrigez is a 32-year-old female former patient of Dr. Hodsden now isbeing seen and followed by Dr. 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 Lives alone.PAST MEDICAL HISTORYDiagnosis Date- [...] reduction- PAST SURGICAL HISTORY OF 01/15/2017 micodiscectomy [id number] HistoryProblem Relation Age of Onset- other (diabetes mellitus) Mother- Coronary Artery Disease Father from [place] age 60- other (Sudden ) Father- COPD [...] and doing well.She appears euvolemic on exam [place] [employer] functional classII. She remains on [...] Dr. Faith in approximately a year. Normal [facility] Vital Signs Date Time Vital Sign Value Performing Clinician Facility 02-12-2025 10:54-0400 Body height 177.8 cm [employer] Work Phone: [facility] 02-12-2025 10:54-0400 Body mass index (BMI) [Ratio] 37.88 kg/m2 [employer] Work Phone: [facility] 02-12-2025 10:54-0400 Body weight 119.75 kg [employer] Work Phone: [facility] 02-12-2025 10:54-0400 Diastolic blood pressure 72 mm[Hg] [employer] Work Phone: [facility] 02-12-2025 10:54-0400 Heart rate 69 /min [employer] Work Phone: [facility] 02-12-2025 10:54-0400 SaO2% (BldA) [Mass fraction] 98 % [employer] Work Phone: [facility] 02-12-2025 10:54-0400 Systolic blood pressure 103 mm[Hg] Elder Chao PA-C Work Phone: [facility] 11-26-2024 07:02-0500 Body mass index (BMI) [Ratio] 40.46 kg/m2 Kady Sol APRN.TELEPHONE COLLECTOR Work Phone: [facility] 11-26-2024 07:02-0500 Body weight 125.19 kg Kady Sol APRN.TELEPHONE COLLECTOR Work Phone: [facility] 11-26-2024 07:02-0500 Diastolic blood pressure 70 mm[Hg] Kady Sol APRN.TELEPHONE COLLECTOR Work Phone: [facility] 11-26-2024 07:02-0500 Systolic blood pressure 122 mm[Hg] Kady Sol APRN.TELEPHONE COLLECTOR Work Phone: [facility] 11-21-2024 10:02-0500 Body mass index (BMI) [Ratio] 40.61 kg/m2 Isael Fish MD Work Phone: [facility] 11-21-2024 10:02-0500 Body temperature 97.5 [degF] Isael Fish MD Work Phone: [facility] 11-21-2024 10:02-0500 Body weight 125.65 kg Isael Fish MD Work Phone: [facility] 11-21-2024 10:02-0500 Diastolic blood pressure 68 mm[Hg] Isael Fish MD Work Phone: [facility] 11-21-2024 10:02-0500 Heart rate 27 /min Isael Fish MD Work Phone: [facility] 11-21-2024 10:02-0500 Respiratory rate 16 /min Isael Fish MD Work Phone: [facility] 11-21-2024 10:02-0500 Systolic blood pressure 110 mm[Hg] Isael Fish MD Work Phone: [facility] 03-18-2024 16:27-0400 Body height 175.9 cm Isael Fish MD Work Phone: [facility] 03-18-2024 16:27-0400 Body mass index (BMI) [Ratio] 40.02 kg/m2 Isael Fish MD Work Phone: [facility] 03-18-2024 16:27-0400 Body weight 123.83 kg Isael Fish MD Work Phone: [facility] 03-18-2024 16:27-0400 Diastolic blood pressure 80 mm[Hg] Isael Fish MD Work Phone: [facility] 03-18-2024 16:27-0400 Heart rate 72 /min Isael Fish MD Work Phone: [facility] 03-18-2024 16:27-0400 Respiratory rate 16 /min Isael Fish MD Work Phone: [facility] 03-18-2024 16:27-0400 Systolic blood pressure 130 mm[Hg] Isael Fish MD Work Phone: [facility] 09-11-2023 16:47-0500 Diastolic blood pressure 84 mm[Hg] Isael Fish MD Work Phone: [facility] 09-11-2023 16:47-0500 Systolic blood pressure 128 mm[Hg] Isael Fish MD Work Phone: [facility] 09-11-2023 15:56-0500 Body weight 136.08 kg Isael Fish MD Work Phone: [facility] 09-11-2023 15:56-0500 Heart rate 80 /min Isael Fish MD Work Phone: [facility] 09-11-2023 15:56-0500 Respiratory rate 18 /min Isael Fish MD Work Phone: [facility] 03-06-2023 15:49-0400 Body height 177.8 cm Isael iFsh MD Work Phone: [facility] 03-06-2023 15:49-0400 Body weight 130.64 kg Isael Fish MD Work Phone: [facility] 03-06-2023 15:49-0400 Diastolic blood pressure 84 mm[Hg] Isael Fish MD Work Phone: [facility] 03-06-2023 15:49-0400 Heart rate 78 /min Isael Fish MD Work Phone: [facility] 03-06-2023 15:49-0400 Respiratory rate 14 /min Isael Fish MD Work Phone: [facility] 03-06-2023 15:49-0400 Systolic blood pressure 134 mm[Hg] Isael Fish MD Work Phone: [facility] 09-21-2022 19:18-0500 Body height 175.26 cm [facility] Work Phone: 09-21-2022 19:18-0500 Body mass index (BMI) [Ratio] 38.9 kg/m2 [facility] Work Phone: 09-21-2022 19:18-0500 Body temperature 97.9 [degF] [facility] Work Phone: 09-21-2022 19:18-0500 Body weight 119.74 kg [facility] Work Phone: 09-21-2022 19:18-0500 Diastolic blood pressure 107 mm[Hg] [facility] Work Phone: 09-21-2022 19:18-0500 Heart rate 97 /min [facility] Work Phone: 09-21-2022 19:18-0500 Respiratory rate 18 /min [facility] Work Phone: 09-21-2022 19:18-0500 SaO2% (BldA) [Mass fraction] 98 % [facility] Work Phone: 09-21-2022 19:18-0500 Systolic blood pressure 154 mm[Hg] [facility] Work Phone: 08-15-2022 18:35-0500 Diastolic blood pressure 86 mm[Hg] Isael Fish MD Work Phone: [facility] 08-15-2022 18:35-0500 Systolic blood pressure 128 mm[Hg] Isael Fish MD Work Phone: [facility] 08-15-2022 17:46-0500 Body weight 119.75 kg Isael Fish MD Work Phone: [facility] 08-15-2022 17:46-0500 Heart rate 82 /min Isael Fish MD Work Phone: [facility] 08-15-2022 17:46-0500 Respiratory rate 16 /min Isael Fish MD Work Phone: [facility] 06-20-2022 19:33-0400 Body temperature 99.19 [degF] Isael Fish MD Work Phone: [facility] 06-20-2022 19:33-0400 Body weight 120.2 kg Isael Fish MD Work Phone: [facility] 06-20-2022 19:33-0400 Diastolic blood pressure 86 mm[Hg] Isael Fish MD Work Phone: [facility] 06-20-2022 19:33-0400 Heart rate 88 /min Isael Fish MD Work Phone: [facility] 06-20-2022 19:33-0400 Respiratory rate 16 /min Isael Fish MD Work Phone: [facility] 06-20-2022 19:33-0400 Systolic blood pressure 126 mm[Hg] Isael Fish MD Work Phone: [facility] 02-28-2022 07:59-0400 Body height 177.8 cm Kady Sol APRN.TELEPHONE COLLECTOR Work Phone: [facility] 02-28-2022 07:59-0400 Body weight 117.94 kg Kady Sol APRN.TELEPHONE COLLECTOR Work Phone: [facility] 02-28-2022 07:59-0400 Diastolic blood pressure 76 mm[Hg] Kady Sol APRN.TELEPHONE COLLECTOR Work Phone: [facility] 02-28-2022 07:59-0400 Systolic blood pressure 130 mm[Hg] Kady Sol APRN.TELEPHONE COLLECTOR Work Phone: [facility] 01-16-2022 09:00-0400 Body temperature 96.8 [degF] Dr. Isael Fish Work Phone: [facility] Work Phone: 01-16-2022 09:00-0400 Diastolic blood pressure 80 mm[Hg] Dr. Isael Fish Work Phone: [facility] Work Phone: 01-16-2022 09:00-0400 Heart rate 97 /min Dr. Isael Fish Work Phone: [facility] Work Phone: 01-16-2022 09:00-0400 Respiratory rate 16 /min Dr. Isael Fish Work Phone: [facility] Work Phone: 01-16-2022 09:00-0400 SaO2% (BldA) [Mass fraction] 98 % Dr. Isael Fish Work Phone: [facility] Work Phone: 01-16-2022 09:00-0400 Systolic blood pressure 122 mm[Hg] Dr. Isael Fish Work Phone: [facility] Work Phone: 12-27-2021 10:41-0400 Body height 175.3 cm Elder Chao PA-C Work Phone: [facility] 12-27-2021 10:41-0400 Body weight 121.56 kg Elder Chao PA-C Work Phone: [facility] 12-27-2021 10:41-0400 Diastolic blood pressure 81 mm[Hg] Elder Chao PA-C Work Phone: [facility] 12-27-2021 10:41-0400 Heart rate 77 /min Elder LONDONO-C Work Phone: [facility] 12-27-2021 10:41-0400 Systolic blood pressure 130 mm[Hg] Elder Chao PA-C Work Phone: [facility] 11-15-2021 15:39-0500 Body height 177.[address] Isael Fish Work Phone: [facility] Work Phone: 11-15-2021 15:39-0500 Body mass index (BMI) [Ratio] 38.5 kg/m2 Dr. Isael Fish Work Phone: [facility] Work Phone: 11-15-2021 15:39-0500 Body temperature 97.3 [degF] Dr. Isael Fish Work Phone: [facility] Work Phone: 11-15-2021 15:39-0500 Body weight 122.[address] Isael Fish Work Phone: [facility] Work Phone: 11-15-2021 15:39-0500 Diastolic blood pressure 86 mm[Hg] Dr. Isael Fish Work Phone: [facility] Work Phone: 11-15-2021 15:39-0500 Heart rate 101 /min Dr. Isael Fish Work Phone: [facility] Work Phone: 11-15-2021 15:39-0500 Respiratory rate 18 /min Dr. Isael Fish Work Phone: [facility] Work Phone: 11-15-2021 15:39-0500 SaO2% (BldA) [Mass fraction] 97 % Dr. Isael Fish Work Phone: [facility] Work Phone: 11-15-2021 15:39-0500 Systolic blood pressure 148 mm[Hg] Dr. Isael Fish Work Phone: [facility] Work Phone: Encounters Encounter Date Encounter Type Care Provider Facility Start: 04-21-2025 End: 04-21-2025 ambulatory Isael Fish Facility:[facility] Start: 03-29-2025 End: 03-29-2025 ambulatory Isael Fish Facility:[facility] Start: 02-12-2025 End: 02-12-2025 Patient encounter procedure Elder Chao PA-C Work Phone: [facility] Comment on above: Multiple sclerosis ( HCC) (Primary Dx) Start: 02-12-2025 End: 02-12-2025 ambulatory ISAEL FISH Facility:[facility] Start: 02-02-2025 End: 02-02-2025 Refill Isael Fish MD Work Phone: [facility] [place] Comment on above: Refill Request Start: 01-21-2025 End: 01-21-2025 ambulatory Isael Fish Facility:[facility] Start: 01-18-2025 End: 01-18-2025 ambulatory Isael Fish Facility:[facility] Start: 12-31-2024 End: 01-04-2025 ambulatory Elder LONDONO-C Work Phone: [facility] Start: 12-31-2024 End: 01-04-2025 Follow-up encounter Elder Chao PA-C Work Phone: [facility] Comment on above: Test and Medication follow up Start: 12-28-2024 End: 01-06-2025 ambulatory Elder LONDONO-C Work Phone: [facility] Comment on above: Test and Medication Start: 11-26-2024 End: 11-26-2024 ambulatory KADY SOL Facility:[facility] Start: 11-26-2024 End: 11-26-2024 Patient encounter procedure Kady Sol [employer]OP SUPERVISOR.TELEPHONE COLLECTOR Work Phone: OB/Gynecology Comment on above: Encounter for gyneco logical examination (general) (routine) without abnormal findings (Primary Dx); Surveillance for control, oral contraceptives Start: 11-26-2024 End: 11-26-2024 Patient encounter status Kady Sol APRN.CNP Work Phone: [facility] Start: 11-21-2024 End: 11-21-2024 ambulatory ISAEL FISH Facility:[facility] Start: 11-21-2024 End: 11-21-2024 Patient encounter procedure Isael Fish MD Work Phone: [facility] Comment on above: Essential hypertensi on [...] 11-09-2024 End: 11-17-2024 E-mail encounter from caregiver Evelina Gary HARRISON [facility] Start: 11-09-2024 End: 11-17-2024 Patient encounter procedure Evelina Peter MA [facility] Comment on above: Appointment Start: 11-06-2024 End: 11-06-2024 Refill Isael Fish MD Work Phone: [facility] Comment on above: Refill Request Start: 11-05-2024 End: 11-09-2024 Chart abstracting Isael Fish MD Work Phone: [facility] Comment on above: Outside Labs-[facility] Refill Request Start: 11-04-2024 End: 11-04-2024 ambulatory Isael Fish Facility[facility] Start: 11-04-2024 End: 11-04-2024 ambulatory Isael Fish Facility:[facility] Start: 09-07-2024 End: 09-07-2024 Refill Rich Nicholson APRN.TELEPHONE COLLECTOR Work Phone: Neurology Comment on above: Refill Request Start: 09-01-2024 End: 09-01-2024 Telephone encounter Elder Chao PA-C Work Phone: [facility] Comment on above: Appointment (tried c alling patient to get her scheduled for a follow up but patients refused appointment) Start: 08-29-2024 End: 08-31-2024 Refill Isael Fish MD Work Phone: [facility] Comment on above: Refill Request Start: 07-22-2024 End: 07-22-2024 ambulatory Sahil Walton Facility:[facility] Start: 07-14-2024 End: 07-15-2024 ambulatory Isael Fish MD Work Phone: [facility] Comment on above: Stomach bug? Start: 07-02-2024 End: 07-03-2024 ambulatory Elder Chao PA-C Work Phone: [facility] Comment on above: Lyrica Start: 06-22-2024 End: 06-22-2024 ambulatory Sahil LONDONO Facility:[facility] Start: 05-29-2024 End: 06-03-2024 Refill Kady Sol APRN.TELEPHONE COLLECTOR Work Phone: OB/Gynecology Comment on above: Refill Request Start: 05-25-2024 End: 05-25-2024 Refill Isael Fish MD Work Phone: [facility] Comment on above: Refill Request Start: 05-23-2024 End: 05-29-2024 ambulatory Isael Fish MD Work Phone: [facility] Comment on above: Vacation Refill and appt Start: 05-04-2024 Chart abstracting Evelina Peter MA [facility] Comment on above: Consult (Outside Con sult for Ortho ) Start: 04-30-2024 End: 04-30-2024 ambulatory Isael Fish Facility[facility] Start: 04-30-2024 End: 04-30-2024 ambulatory Isael Fish Facility:[facility] Start: 04-21-2024 Telephone encounter Isael Fish MD Work Phone: [facility] Comment on above: Results (EMG/NCS) Start: 03-26-2024 Telephone encounter Isael Fish MD Work Phone: [facility] Comment on above: Results Start: 03-24-2024 Telephone encounter Isael Fish MD Work Phone: [facility] Comment on above: Results (/) Start: 03-18-2024 Encounter for genera l adult medical examination without abnormal findings ISAEL FISH [facility] Start: 03-18-2024 End: 03-18-2024 Patient encounter procedure Isael Fish MD Work Phone: [facility] Comment on above: Well adult exam [...] Start: 03-18-2024 End: 03-18-2024 ambulatory ISAEL FISH Facility:[facility] Start: 03-18-2024 End: 03-18-2024 Patient encounter status Isael Fish MD Work Phone: [facility] Work Phone: Start: 03-17-2024 Chart abstracting Isael myers MD Work Phone: [facility] Comment on above: Outside Mammogram Start: 03-10-2024 Chart abstracting Isael myers MD Work Phone: [facility] Comment on above: Outside Labs-[facility] Start: 02-12-2024 ambulatory Isael castro MD Work Phone: [facility] Comment on above: Xray? Start: 02-05-2024 ambulatory Isael castro MD Work Phone: Internal Medicine [facility] [place] Start: 01-28-2024 ambulatory Elder Oneal Work Phone: [facility] Comment on above: MRI Start: 01-28-2024 E-mail encounter fro m caregiver Elder Chao PA-C Work Phone: [facility] Start: 01-27-2024 Chart abstracting Isael myers MD Work Phone: [facility] [place] Comment on above: Ext / Labs Start: 01-24-2024 Refill Kathie iverson [employer]UCK [employer]OP SUPERVISOR.TELEPHONE COLLECTOR Work Phone: [facility] Comment on above: Refill Request Start: 11-11-2023 ambulatory Isael castro MD Work Phone: [facility] [place] Comment on above: Annoying Cough (impo rtant business, lol) Start: 09-13-2023 Telephone encounter Isael Fish MD Work Phone: [facility] [place] Comment on above: Results (X-ray/) Start: 09-11-2023 End: 09-11-2023 Patient encounter procedure Isael Fish MD Work Phone: [facility] [place] Comment on above: Essential hypertensi on (Primary [...] of right ear Start: 09-09-2023 Refill Romi silva APRN.TELEPHONE COLLECTOR Work Phone: [facility] Comment on above: Refill Request Start: 08-30-2023 Telephone encounter Isael Fish MD Work Phone: [facility] [place] Comment on above: Results Start: 06-13-2023 Chart abstracting Isael myers MD Work Phone: [facility] Comment on above: ext results (MRI and Labs) Start: 05-22-2023 Refill Bing Eller on PA-C Work Phone: [facility] [place] Comment on above: Refill Request Start: 05-15-2023 Refill Isael castro MD Work Phone: [facility] [place] Comment on above: Refill Request Start: 03-30-2023 Refill Bing Eller on PA-C Work Phone: [facility] [place] Comment on above: Refill Request Start: 03-06-2023 End: 03-06-2023 Patient encounter procedure Isael Fish MD Work Phone: [facility] [place] Comment on above: Well adult exam (Gladis [...] encounter status Isael Fish MD Work Phone: [facility] Start: 02-15-2023 Get Medical Advice Isael Fish MD Work Phone: [facility] [place] Comment on above: Orders and FYI Start: 02-12-2023 Chart abstracting Isael myers MD Work Phone: [facility] [place] Start: 02-04-2023 ambulatory Isael castro MD Work Phone: [facility] [place] Start: 02-04-2023 Patient encounter procedure Isael Fish MD Work Phone: [facility] [place] Comment on above: Dermo Referral Start: 02-01-2023 End: 02-01-2023 ambulatory Elder Chao PAMariana Work Phone: [facility] Comment on above: Multiple sclerosis, relapsing-remitting (HCC) Start: 02-01-2023 End: 02-01-2023 Telemedicine consultation with patient Elder Chao PA-C Work Phone: [facility] Start: 01-23-2023 Chart abstracting Isael myers MD Work Phone: [facility] [place] Comment on above: Results Start: 01-11-2023 ambulatory Elder Chao P A-C Work Phone: [facility] Comment on above: labs Start: 01-11-2023 E-mail encounter fro m caregiver Elder Chao PA-C Work Phone: [facility] Start: 01-10-2023 Chart abstracting Isael myers MD Work Phone: [facility] [place] Comment on above: Outside [id number] Ordered Start: 01-05-2023 Refill Isael castro MD Work Phone: [facility] Comment on above: Refill Request Start: 12-24-2022 Refill Elder Adam A-C Work Phone: [facility] Comment on above: Refill Request Start: 12-23-2022 Refill Elder Chao P A-C Work Phone: [facility] Comment on above: Refill Request Start: 12-19-2022 Refill Steph Bowen Work Phone: [facility] Comment on above: Refill Request Start: 12-14-2022 ambulatory Isael castro MD Work Phone: [facility] [place] Comment on above: Sinus Season Start: 12-06-2022 ambulatory Elder Chao P A-C Work Phone: [facility] Comment on above: MRI needed? Start: 11-16-2022 Chart abstracting Isael myers MD Work Phone: [facility] Comment on above: Results, Lab Start: 11-16-2022 Telephone encounter Evelina Peter HUNTER [facility] Comment on above: Results Start: 10-15-2022 ambulatory Isael castro MD Work Phone: [facility] [place] Start: 10-15-2022 Patient encounter procedure Isael Fish MD Work Phone: [facility] Comment on above: Referral Start: 09-21-2022 End: 09-21-2022 Emergency department patient visit [facility] Start: 09-20-2022 ambulatory Elder Oneal Work Phone: [facility] Comment on above: Chest tightness Start: 08-27-2022 ambulatory Isael castro MD Work Phone: [facility] Comment on above: BP Start: 08-15-2022 End: 08-15-2022 Refill Isael Fish MD Work Phone: [facility] Comment on above: Refill Request Essential hypertensi on (Primary Dx); Mixed hyperlipidemia; Postprocedural hypothyroidism; Migraine with aura and without status migrainosus, not intractable; GERD without esophagitis; Multiple sclerosis (HCC); Takotsubo cardiomyopathy; Chronic systolic heart failure (HCC); Generalized anxiety disorder; Obesity, Class II, BMI 35-39.9; Encounter for immunization Start: 08-14-2022 End: 08-14-2022 ambulatory [facility] Work Phone: Start: 08-14-2022 End: 08-14-2022 Patient encounter procedure [facility] Start: 08-14-2022 Registered Referred [facility] Start: 08-07-2022 Get Medical Advice Isael Fish MD Work Phone: [facility] Comment on above: Lab Orders Needed :) Start: 07-26-2022 Chart abstracting Elder Chao PA-C Work Phone: [facility] Comment on above: Forms (FMLA) Start: 07-24-2022 Refill Isael castro MD Work Phone: [facility] Comment on above: Refill Request Start: 07-09-2022 End: 07-09-2022 ambulatory [facility] Work Phone: Start: 07-09-2022 End: 07-09-2022 Patient encounter procedure [facility] Start: 06-25-2022 Telephone encounter Isael Fish MD Work Phone: [facility] Comment on above: Results Start: 06-21-2022 End: 06-21-2022 ambulatory [facility] Work Phone: Start: 06-21-2022 End: 06-21-2022 Patient encounter procedure [facility] Start: 06-20-2022 End: 06-20-2022 Patient encounter procedure Isael Fish MD Work Phone: [facility] Comment on above: Epigastric pain (Gladis angelina Dx); RUQ pain Start: 06-18-2022 ambulatory Isael castro MD Work Phone: [facility] Comment on above: Labs and Other Start: 05-02-2022 Refill Isael castro MD Work Phone: [facility] Comment on above: Refill Request Start: 04-18-2022 Refill Steph Bowen Work Phone: [facility] Comment on above: Refill Request Start: 04-13-2022 Refill Isael castro MD Work Phone: [facility] Comment on above: Refill Request Start: 02-28-2022 End: 02-28-2022 Patient encounter procedure Kady Sol APRN.CNP Work Phone: OB/Gynecology Comment on above: Encounter for gyneco logical examination (general) (routine) without abnormal findings (Primary Dx); Surveillance for control, oral contraceptives; Obesity (BMI 35.0-39.9 without comorbidity) Start: 02-28-2022 End: 02-28-2022 Patient encounter status Kady Sol APRN.TELEPHONE COLLECTOR Work Phone: OB/Gynecology Start: 01-31-2022 Patient encounter status Kady elder APRN.TELEPHONE COLLECTOR Work Phone: [facility] Work Phone: Start: 01-26-2022 End: 01-26-[address] Isael Fish Work Phone: [facility] Start: 01-23-[address] Isael Fish Work Phone: [facility] Start: 01-16-2022 End: 01-16-[address] Isael Fish Work Phone: [facility] Start: 01-15-2022 Refill Isael castro MD Work Phone: [facility] Comment on above: Refill Request Opened In Error Start: 12-27-2021 End: 12-27-2021 Patient encounter procedure Elder Chao PA-C Work Phone: [facility] Comment on above: Vitamin D deficiency (Primary Dx); Multiple sclerosis, relapsing-remitting (HCC); Spasm Start: 12-13-2021 End: 12-13-[address] Isael Fish Work Phone: [facility] Start: 11-15-2021 End: 11-15-[address] Isael Fish Work Phone: [facility] Start: 10-19-2021 End: 10-19-[address] Isael Fish Work Phone: [facility] Start: 01-25-2021 Patient encounter status Sanket Chao PA-C Work Phone: [facility] Work Phone: Start: 06-04-2018 End: 06-04-2018 Patient encounter SHANNA JARRETT Facility:[facility] Start: 07-18-2016 Patient encounter status Zamzamaustin ayoub Heath BURKS Work Phone: [facility] Work Phone: Procedures Date Procedure Procedure [...] Detail Author Start: 09-03-2028 Urine microalbumin profile [facility] Start: 03-01-2028 HPV TESTING HPV TESTING [facility] Start: 03-01-2028 PAP TESTING PAP TESTING [facility] Start: 03-01-2028 Screening for malign ant neoplasm of cervix [facility] Start: 02-12-2026 BP Controlled (<130/80) BP Controlle d (<130/80) [facility] Start: 11-26-2025 BP Controlled (<130/80) BP Controlle d (<130/80) [facility] Start: 11-21-2025 Annual PCP Team Adjunct Communications Faculty Member shahana Disease Visit Annual PCP Team Chronic Disease Visit [facility] Start: 11-21-2025 BP Controlled (<130/80) BP Controlle d (<130/80) [facility] Start: 05-21-2025 End: 05-21-2025 Patient encounter procedure [facility] Comment on above: physical Start: 05-07-2025 End: 08-06-2025 CBC W Auto Differential panel - Blood COMPLETE BLOOD COUNT AND DIFFERENTIAL Lab Routine Postprocedural hypothyroidism Expected: 05/07/2025, Expires: 08/06/2025 [facility] Comment on above: Expected: 05/07/2025 , Expires: 08/06/2025 Start: 05-07-2025 End: 08-06-2025 Cobalamin (Vitamin B12) [Mass/volume] in Serum or Plasma VITAMIN B12 Lab Routine GERD without esophagitis Medication management Expected: 05/07/2025, Expires: 08/06/2025 [facility] Comment on above: Expected: 05/07/2025 , Expires: 08/06/2025 Start: 05-07-2025 End: 08-06-2025 Comprehensive metabolic 2000 panel - Serum or Plasma COMPREHENSIVE METABOLIC PANEL Lab Routine Essential hypertension Mixed hyperlipidemia Expected: 05/07/2025, Expires: 08/06/2025 [facility] Comment on above: Expected: 05/07/2025 , Expires: 08/06/2025 Start: 05-07-2025 End: 08-06-2025 Hemoglobin A1c in Blood HEMOGLOBIN A1C Lab Routine Encounter for screening for diabetes mellitus Expected: 05/07/2025, Expires: 08/06/2025 [facility] Comment on above: Expected: 05/07/2025 , Expires: 08/06/2025 Start: 05-07-2025 End: 08-06-2025 LIPID PANEL, NONFASTING LIPID PANEL, NONFASTING Lab Routine Essential hypertension Mixed hyperlipidemia Expected: 05/07/2025, Expires: 08/06/2025 [facility] Comment on above: Expected: 05/07/2025 , Expires: 08/06/2025 Start: 05-07-2025 End: 08-06-2025 Magnesium [Mass/volume] in Serum or Plasma MAGNESIUM Lab Routine GERD without esophagitis Medication management Expected: 05/07/2025, Expires: 08/06/2025 [facility] Comment on above: Expected: 05/07/2025 , Expires: 08/06/2025 Start: 05-07-2025 End: 08-06-2025 Thyrotropin [Units/volume] in Serum or Plasma THYROID STIMULATING HORMONE Lab Routine Postprocedural hypothyroidism Expected: 05/07/2025, Expires: 08/06/2025 [facility] Comment on above: Expected: 05/07/2025 , Expires: 08/06/2025 Start: 05-07-2025 End: 08-06-2025 Urinalysis complete panel - Urine URINALYSIS, WITH MICROSCOPIC Lab Routine Essential hypertension Mixed hyperlipidemia Expected: 05/07/2025, Expires: 08/06/2025 [facility] Comment on above: Expected: 05/07/2025 , Expires: 08/06/2025 Start: 05-07-2025 ambulatory Ambulatory Facility:[facility] Start: 03-18-2025 Annual PCP Team Adjunct Communications Faculty Member shahana Disease Visit Annual PCP Team Chronic Disease Visit [facility] Start: 03-13-2025 Screening for malign ant neoplasm of breast Mammogram Screening [facility] Start: 02-12-2025 End: 02-12-2025 Patient encounter procedure 02/12/2025 11:15 AM EDT Office Visit [address] [address] Elder Chao PA-C [address] [place] [address] Follow up, checking in and saying HI! :) [facility] Comment on above: Follow up, checking in and saying HI! :) Start: 11-26-2024 End: 11-26-2024 Patient encounter procedure 11/26/2024 7:00 AM EST Office Visit OB/Gynecology [address] [place] [address] Kady Sol APRN.TELEPHONE COLLECTOR [address] [place] [address] f/u in 1 year for annual FISHER TROT LINE exam OB/Gynecology Comment on above: f/u in 1 year for an nual FISHER TROT LINE exam Start: 11-21-2024 End: 11-21-2024 Patient encounter procedure 11/21/2024 9:40 AM EST Office Visit [facility] [place] [address] [place] [address] Isael Fish MD [address] [place] [address] 6 month follow up [facility] [place] Comment on above: 6 month follow up Start: 11-18-2024 End: 11-18-2024 Follow-up encounter 11/18/2024 2:40 PM EST [facility] [address] [place] [address] Isael Fish MD [address] [place] [address] General follow up [facility] Comment on above: General follow up Start: 09-23-2024 End: 09-23-2024 Patient encounter procedure 09/23/2024 2:40 PM EST Office Visit [facility] [place] [address] [place] [address] Isael Fish MD [address] [place] [address] 6 month follow up [facility] [place] Comment on above: 6 month follow up Start: 09-11-2024 Annual PCP Team Adjunct Communications Faculty Member shahana Disease Visit Annual PCP Team Chronic Disease Visit [facility] Start: 09-04-2024 End: 12-04-2024 LIPID PANEL, NONFASTING LIPID PANEL, NONFASTING Lab Routine Essential hypertension Mixed hyperlipidemia Expected: 09/04/2024, Expires: 12/04/2024 [facility] Comment on above: Expected: 09/04/2024 , Expires: 12/04/2024 Start: 09-04-2024 End: 12-04-2024 Thyrotropin [Units/volume] in Serum or Plasma THYROID STIMULATING HORMONE Lab Routine Postprocedural hypothyroidism Expected: 09/04/2024, Expires: 12/04/2024 [facility] Comment on above: Expected: 09/04/2024 , Expires: 12/04/2024 Start: 06-16-2024 End: 06-16-2024 Patient encounter procedure 06/16/2024 4:00 PM EDT Office Visit OB/Gynecology [address] [place] [address] Kady Sol, TRUCK SHOP SUPERVISOR.TELEPHONE COLLECTOR [address] [place] [address] f/u in 1 year for annual FISHER TROT LINE exam OB/Gynecology Comment on above: f/u in 1 year for an nual FISHER TROT LINE exam Start: 06-07-2024 Covid-19 Vaccine ( season) Covid-19 Vaccine ( season) [facility] Start: 06-07-2024 Influenza vaccination Influenza Vacc ine (#1) [facility] Start: 04-21-2024 End: 04-21-2024 Patient encounter procedure 04/21/2024 4:00 PM EDT Office Visit OB/Gynecology [address] [place] [address] Kady Sol, TRUCK SHOP SUPERVISOR.TELEPHONE COLLECTOR [address] [place] [address] f/u in 1 year for annual FISHER TROT LINE exam OB/Gynecology Comment on above: f/u in 1 year for an nual FISHER TROT LINE exam Start: 04-20-2024 HPV TESTING HPV TESTING [facility] Start: 04-20-2024 PAP TESTING PAP TESTING [facility] Start: 03-18-2024 End: 03-18-2024 Patient encounter procedure 03/18/2024 4:00 PM EDT Office Visit [facility] [address] [facility] [place] [address] Isael Fish MD [address] [place] [address] Physical [facility] Comment on above: Physical Start: 03-18-2024 End: 06-17-2024 Folate [Mass/volume] in Serum or Plasma FOLATE, SERUM Lab Routine Numbness and tingling of left leg Expected: 03/18/2024, Expires: 06/17/2024 [facility] Work Phone: Comment on above: Expected: 03/18/2024 , Expires: 06/17/2024 Start: 03-06-2024 ANNUAL PCP TEAM BELT BUCKLE MAKER SHAHANA DISEASE VISIT ANNUAL PCP TEAM CHRONIC DISEASE VISIT [facility] Start: 03-03-2024 End: 03-03-2024 Patient encounter procedure 03/03/2024 4:00 PM EDT Office Visit OB/Gynecology [address] [place] [address] Kady Sol APRN.TELEPHONE COLLECTOR [address] [place] [place] [address] f/u in 1 year for annual FISHER TROT LINE exam OB/Gynecology Comment on above: f/u in 1 year for an nual FISHER TROT LINE exam Start: 02-28-2024 End: 05-29-2024 CBC W Auto Differential panel - Blood CBC + DIFF Lab Routine Postprocedural hypothyroidism Generalized anxiety disorder Expected: 02/28/2024, Expires: 05/29/2024 [facility] Work Phone: Comment on above: Expected: 02/28/2024 , Expires: 05/29/2024 Start: 02-28-2024 End: 05-29-2024 Cobalamin (Vitamin B12) [Mass/volume] in Serum or Plasma VITAMIN B12 BLOOD Lab Routine GERD without esophagitis Medication management Expected: 02/28/2024, Expires: 05/29/2024 [facility] Work Phone: Comment on above: Expected: 02/28/2024 , Expires: 05/29/2024 Start: 02-28-2024 End: 05-29-2024 Comprehensive metabolic 2000 panel - Serum or Plasma COMP METABOLIC PANEL Lab Routine Essential hypertension Mixed hyperlipidemia Expected: 02/28/2024, Expires: 05/29/2024 [facility] Work Phone: Comment on above: Expected: 02/28/2024 , Expires: 05/29/2024 Start: 02-28-2024 End: 05-29-2024 Hemoglobin A1c in Blood HGB A1C Lab Routine Encounter for screening for diabetes mellitus Expected: 02/28/2024, Expires: 05/29/2024 [facility] Work Phone: Comment on above: Expected: 02/28/2024 , Expires: 05/29/2024 Start: 02-28-2024 End: 05-29-2024 LIPID PANEL, NONFASTING LIPID PANEL, NONFASTING Lab Routine Essential hypertension Mixed hyperlipidemia Expected: 02/28/2024, Expires: 05/29/2024 [facility] Work Phone: Comment on above: Expected: 02/28/2024 , Expires: 05/29/2024 Start: 02-28-2024 End: 05-29-2024 Magnesium [Mass/volume] in Serum or Plasma MAGNESIUM BLD Lab Routine GERD without esophagitis Medication management Expected: 02/28/2024, Expires: 05/29/2024 [facility] Work Phone: Comment on above: Expected: 02/28/2024 , Expires: 05/29/2024 Start: 02-28-2024 End: 05-29-2024 Thyrotropin [Units/volume] in Serum or Plasma TSH BLD Lab Routine Postprocedural hypothyroidism Expected: 02/28/2024, Expires: 05/29/2024 [facility] Work Phone: Comment on above: Expected: 02/28/2024 , Expires: 05/29/2024 Start: 02-28-2024 End: 05-29-2024 Urinalysis complete panel - Urine URINALYSIS, WITH MICROSCOPIC Lab Routine Essential hypertension Mixed hyperlipidemia Expected: 02/28/2024, Expires: 05/29/2024 [facility] Work Phone: Comment on above: Expected: 02/28/2024 , Expires: 05/29/2024 Start: 11-01-2023 End: 01-31-2024 Thyrotropin [Units/volume] in Serum or Plasma TSH BLD Lab Routine Postprocedural hypothyroidism Expected: 11/01/2023, Expires: 01/31/2024 [facility] Work Phone: Comment on above: Expected: 11/01/2023 , Expires: 01/31/2024 Start: 08-23-2023 End: 10-23-2023 Hemoglobin A1c in Blood HGB A1C Lab Routine PCOS (polycystic ovarian syndrome) Expected: 08/23/2023, Expires: 10/23/2023 [facility] Work Phone: Comment on above: Expected: 08/23/2023 , Expires: 10/23/2023 Start: 08-23-2023 End: 10-23-2023 LIPID PANEL, NONFASTING LIPID PANEL, NONFASTING Lab Routine Essential hypertension Mixed hyperlipidemia Expected: 08/23/2023, Expires: 10/23/2023 [facility] Work Phone: Comment on above: Expected: 08/23/2023 , Expires: 10/23/2023 Start: 08-23-2023 End: 10-23-2023 Thyrotropin [Units/volume] in Serum or Plasma TSH BLD Lab Routine Postprocedural hypothyroidism Expected: 08/23/2023, Expires: 10/23/2023 [facility] Work Phone: Comment on above: Expected: 08/23/2023 , Expires: 10/23/2023 Start: 08-15-2023 ANNUAL PCP TEAM BELT BUCKLE MAKER SHAHANA DISEASE VISIT ANNUAL PCP TEAM CHRONIC DISEASE VISIT [facility] Start: 2023 Mammography Mammogram Screening [facility] Start: 2023 Screening for malign ant neoplasm of breast Mammogram Screening [facility] Start: 06-20-2023 ANNUAL PCP TEAM BELT BUCKLE MAKER SHAHANA DISEASE VISIT ANNUAL PCP TEAM CHRONIC DISEASE VISIT [facility] Start: 06-07-2023 Covid-19 Vaccine ( season) Covid-19 Vaccine ( season) [facility] Start: 06-07-2023 Influenza vaccination [facility] Start: 02-18-2023 End: 04-20-2023 CBC W Auto Differential panel - Blood CBC + DIFF Lab Routine Medication management Expected: 02/18/2023, Expires: 04/20/2023 [facility] Work Phone: Comment on above: Expected: 02/18/2023 , Expires: 04/20/2023 Start: 02-18-2023 End: 04-20-2023 Cobalamin (Vitamin B12) [Mass/volume] in Serum or Plasma VITAMIN B12 BLOOD Lab Routine GERD without esophagitis Medication management Expected: 02/18/2023, Expires: 04/20/2023 [facility] Work Phone: Comment on above: Expected: 02/18/2023 , Expires: 04/20/2023 Start: 02-18-2023 End: 04-20-2023 Comprehensive metabolic 2000 panel - Serum or Plasma COMP METABOLIC PANEL Lab Routine Essential hypertension Expected: 02/18/2023, Expires: 04/20/2023 [facility] Work Phone: Comment on above: Expected: 02/18/2023 , Expires: 04/20/2023 Start: 02-18-2023 End: 04-20-2023 Hemoglobin A1c in Blood HGB A1C Lab Routine Encounter for screening for diabetes mellitus Expected: 02/18/2023, Expires: 04/20/2023 [facility] Work Phone: Comment on above: Expected: 02/18/2023 , Expires: 04/20/2023 Start: 02-18-2023 End: 04-20-2023 LIPID PANEL, NONFASTING LIPID PANEL, NONFASTING Lab Routine Essential hypertension Expected: 02/18/2023, Expires: 04/20/2023 [facility] Work Phone: Comment on above: Expected: 02/18/2023 , Expires: 04/20/2023 Start: 02-18-2023 End: 04-20-2023 Magnesium [Mass/volume] in Serum or Plasma MAGNESIUM BLD Lab Routine GERD without esophagitis Medication management Expected: 02/18/2023, Expires: 04/20/2023 [facility] Work Phone: Comment on above: Expected: 02/18/2023 , Expires: 04/20/2023 Start: 02-18-2023 End: 04-20-2023 Thyrotropin [Units/volume] in Serum or Plasma TSH BLD Lab Routine Postprocedural hypothyroidism Expected: 02/18/2023, Expires: 04/20/2023 [facility] Work Phone: Comment on above: Expected: 02/18/2023 , Expires: 04/20/2023 Start: 02-18-2023 End: 04-20-2023 Urinalysis complete panel - Urine URINALYSIS, WITH MICROSCOPIC Lab Routine Essential hypertension Expected: 02/18/2023, Expires: 04/20/2023 [facility] Work Phone: Comment on above: Expected: 02/18/2023 , Expires: 04/20/2023 Start: 01-31-2023 ANNUAL PCP TEAM BELT BU[employer]LE MAKER SHAHANA DISEASE VISIT ANNUAL PCP TEAM CHRONIC DISEASE VISIT [facility] Start: 12-07-2022 ANNUAL PCP TEAM [employer]T [employer] MAKER SHAHANA DISEASE VISIT ANNUAL PCP TEAM CHRONIC DISEASE VISIT [facility] Start: 12-06-2022 End: 02-05-2023 CBC W Auto Differential panel - Blood CBC + DIFF Lab Routine Multiple sclerosis, relapsing-remitting (HCC) Expected: 12/06/2022, Expires: 02/05/2023 [facility] Work Phone: Comment on above: Expected: 12/06/2022 , Expires: 02/05/2023 Start: 12-06-2022 End: 02-05-2023 Hepatic function 2000 panel - Serum or Plasma HEPATIC FUNCTION PNL Lab Routine Multiple sclerosis, relapsing-remitting (HCC) Expected: 12/06/2022, Expires: 02/05/2023 [facility] Work Phone: Comment on above: Expected: 12/06/2022 , Expires: 02/05/2023 Start: 09-21-2022 [facility] Work Phone: Start: 08-07-2022 ONE PNEUMOVAX PRIOR TO AGE 63 ONE PNEUMOVAX PRIOR TO AGE 63 [facility] Comment on above: Postponed from 06/29 (Postponed To Appropriate Date) Start: 07-26-2022 PNEUMOCOCCAL (2 - PPSV23 if available, else PCV20) PNEUMOCOCCAL (2 - PPSV23 if available, else PCV20) [facility] Start: 07-26-2022 PNEUMOCOCCAL (2 - PPSV23 or PCV20) PNEUMOCOCCAL (2 - PPSV23 or PCV20) [facility] Start: 06-20-2022 End: 08-20-2022 Amylase [Enzymatic activity/volume] in Serum or Plasma AMYLASE BLD Lab Routine Epigastric pain Expected: 06/20/2022, Expires: 08/20/2022 [facility] Work Phone: Comment on above: Expected: 06/20/2022 , Expires: 08/20/2022 Start: 06-20-2022 End: 08-20-2022 CBC W Auto Differential panel - Blood CBC + DIFF Lab Routine Epigastric pain RUQ pain Expected: 06/20/2022, Expires: 08/20/2022 [facility] Work Phone: Comment on above: Expected: 06/20/2022 , Expires: 08/20/2022 Start: 06-20-2022 End: 08-20-2022 Hepatic function 2000 panel - Serum or Plasma HEPATIC FUNCTION PNL Lab Routine Epigastric pain RUQ pain Expected: 06/20/2022, Expires: 08/20/2022 [facility] Work Phone: Comment on above: Expected: 06/20/2022 , Expires: 08/20/2022 Start: 06-20-2022 End: 08-20-2022 Lipase [Enzymatic activity/volume] in Serum or Plasma LIPASE BLD Lab Routine Epigastric pain Expected: 06/20/2022, Expires: 08/20/2022 [facility] Work Phone: Comment on above: Expected: 06/20/2022 , Expires: 08/20/2022 Start: 06-07-2022 Influenza vaccination INFLUENZA (#1) [facility] Start: 01-25-2022 BP CONTROLLED (<130/80) BP CONTROLLE D (<130/80) [facility] Start: 12-27-2021 End: 02-26-2022 VITAMIN D 25 HYDROXY [facility] Work Phone: Comment on above: Expected: 12/27/2021 , Expires: 02/26/2022 Start: 10-20-2021 COVID-19 VACCINE (4 - Booster for Moderna series) COVID-19 VACCINE (4 - Booster for Moderna series) [facility] Start: 1985 HEPATITIS B (1 of 3 - 3-dose series) HEPATITIS B (1 of 3 - 3-dose series) [facility] End: 12-21-2025 DBT Breast - bilateral screening JONAS SCREENING W JOSIANE Radiology Routine Encounter for screening mammogram for breast cancer 1 Occurrences starting 11/21/2024 until 12/21/2025 [facility] Work Phone: Comment on above: 1 Occurrences starti ng 11/21/2024 until 12/21/2025 End: 03-06-2025 MG Breast Screening JONAS SCREENING Radiology Routine Encounter for screening mammogram for breast cancer 1 Occurrences starting 02/05/2024 until 03/06/2025 [facility] Work Phone: Comment on above: 1 Occurrences starti ng 02/05/2024 until 03/06/2025 End: 01-29-2026 MR Brain WO and W contrast IV MRI BRAIN WO/W IVCON Radiology Routine Multiple sclerosis, relapsing-remitting (HCC) 1 Occurrences starting 12/30/2024 until 01/29/2026 [facility] Work Phone: Comment on above: 1 Occurrences starti ng 12/30/2024 until 01/29/2026 End: 01-26-2023 Mri brain brain stem w/o w/contrast material MRI BRAIN WO/W IVCON Radiology Routine Multiple sclerosis, relapsing-remitting (HCC) 1 Occurrences starting 12/27/2021 until 01/26/2023 [facility] Work Phone: Comment on above: 1 Occurrences starti ng 12/27/2021 until 01/26/2023 End: 01-05-2024 Mri brain brain stem w/o w/contrast material MRI BRAIN WO/W IVCON Radiology Routine Multiple sclerosis, relapsing-remitting (HCC) 1 Occurrences starting 12/06/2022 until 01/05/2024 [facility] Work Phone: Comment on above: 1 Occurrences starti ng 12/06/2022 until 01/05/2024 Patient Education ED Chest Wall Pain, Costochondritis [facility] Work Phone: Patient referral [facility] Work Phone: Removal impacted cerumen irrigation/lvg unilat AMBULATORY EAR LAVAGE/IRRIGATION Procedures Routine Impacted cerumen of right ear Ordered: 09/11/2023 [facility] Work Phone: Comment on above: Ordered: 09/11/2023 TOXICOLOGY SCREEN, ROUTINE URINE TOXICOLOGY SCREEN, ROUTINE URINE Lab Routine Muscle spasm Medication management Ordered: 03/18/2024 [facility] Comment on above: Ordered: 03/18/2024 End: 10-10-2024 XR RIBS BILATERAL/CHEST 4V XR RIBS BILATERAL/CHEST 4V Radiology Routine Rib pain 1 Occurrences starting 09/11/2023 until 10/10/2024 [facility] Work Phone: Comment on above: 1 Occurrences starti ng 09/11/2023 until 10/10/[address] [facility] Immunizations Immunization Date Immunization Notes Care Provider [facility] 08-11-2024 COVID-19 vaccine, unspecified formulation Isael Fish MD Work Phone: [facility] 08-11-2024 influenza virus vaccine, unspecified formulation Isael Fish MD Work Phone: [facility] 07-26-2023 influenza, seasonal, injectable Isael Fish MD Work Phone: [facility] 07-26-2023 influenza virus vaccine, unspecified formulation Isael Fish MD Work Phone: [facility] 08-24-2022 influenza, seasonal, injectable [facility] Work Phone: 08-24-2022 influenza virus vaccine, unspecified formulation Isael Fish MD Work Phone: [facility] 08-17-2022 Covid Moderna Bivale nt Booster [facility] Work Phone: 08-15-2022 pneumococcal Conjuga te, unspecified formulation Isael Fish MD Work Phone: [facility] Work Phone: 08-15-2022 pneumococcal (PCV20) vaccine, 20 valent (PREVNAR 20) Isael Fish MD Work Phone: [facility] 08-25-2021 COVID-19 vaccine, fu ll dose (MODERNA) Elder Chao PA-C Work Phone: [facility] Work Phone: 08-11-2021 influenza, seasonal, injectable Elder Chao PA-C Work Phone: [facility] Work Phone: 08-10-2021 influenza, seasonal, injectable Dr. Isael Fish Work Phone: [facility] Work Phone: 07-26-2021 pneumococcal conjuga te vaccine, 13 valent Elder LONDONO-Nash Work Phone: [facility] 01-19-2021 COVID-19 vaccine, fu ll dose (MODERNA) Elder LONDONO-C Work Phone: [facility] 10-05-2020 COVID-19 vaccine, fu ll dose (MODERNA) Elder Young PA-C Work Phone: [facility] 08-11-2020 influenza, seasonal, injectable Dr. Isael Fish Work Phone: [facility] Work Phone: 08-07-2019 influenza, seasonal, injectable Elder Young PA-C Work Phone: [facility] 07-02-2019 influenza, seasonal, injectable Dr. Isael Fish Work Phone: [facility] Work Phone: 09-03-2018 influenza, injectabl e, quadrivalent, contains preservative Elder Young PA-C Work Phone: [facility] 09-03-2018 tetanus toxoid, redu mercy diphtheria toxoid, and acellular pertussis vaccine, adsorbed Elder Young PA-C Work Phone: [facility] 08-09-2017 influenza, seasonal, injectable Elder Young PA-C Work Phone: [facility] 08-10-2016 influenza, injectabl e, quadrivalent, contains preservative Elder Young PA-C Work Phone: [facility] Work Phone: 01-05-2013 tetanus toxoid, redu mercy diphtheria toxoid, and acellular pertussis vaccine, adsorbed Isael Fish MD Work Phone: [facility] 05-07-2001 hepatitis B vaccine, pediatric or pediatric/adolescent dosage Isael Fish MD Work Phone: [facility] Payers Date Payer Category Payer Self-pay [id number] 2022 Private Health Insurance [id number] 2022 Private Health Insurance [id number] 2022 Private Health Insurance [id number] 2022 Unknown MMO MMO TPA [id number] 2022-Present [address] [place] [address] PPO [id number] 2019 Unknown [id number] Unknown [id number] Unknown [id number] Unknown [facility] [id number] Unknown [id number] 62 Unknown [id number] 62 Unknown [id number] 62 Unknown [id number] 62 Unknown [id number] 62 Unknown [id number] 62 Unknown [id number] 62 Unknown [id number] 62 Unknown [id number] 62 Unknown [id number] 62 Unknown [id number] 62 Unknown [id number] 62 Social History Date Type Detail Facility Start: 05-17-2016 End: 06-20-2022 Tobacco smoking status NHIS Never smoked tobacco [facility] Start: 12-27-2021 End: 11-26-2024 Alcohol intake Current drinker of alcohol (finding) [facility] Start: 07-06-2020 End: 02-28-2023 History SDOH Alcohol Frequency 2 [facility] Start: 07-06-2020 End: 09-25-2021 History SDOH Alcohol Std Drinks 1 [facility] Start: 06-04-2018 History SDOH Alcohol Comment seldom [facility] Start: 05-12-2020 End: 02-28-2023 History SDOH Social Connections Phone 5 [facility] Start: 05-12-2020 End: 02-28-2023 History SDOH Social Connections Religion 3 [facility] Start: 12-13-2019 Education 17 [facility] Start: 1985 Sex Assigned At Female [facility] Start: 12-17-2021 End: 08-15-2022 Exposure to SARS-CoV-2 (event) Not sure [facility] Start: 01-16-2022 End: 09-21-2022 Tobacco smoking status NHIS Unknown if ever smoked [facility] Work Phone: Start: 05-17-2016 End: 06-20-2022 Tobacco use and exposure Smokeless tobacco non-user [facility] Work Phone: Start: 02-28-2023 History SDOH Social Connections Phone 4 [facility] Start: 02-28-2023 End: 03-13-2024 History of Social function [facility] Start: 02-28-2023 End: 03-13-2024 Social connection and isolation panel [facility] Do you belong to any clubs or organizations such as christian groups, unions, fraternal or athletic groups, or school groups? Yes [facility] Are you now , , , , never or living with a partner? [facility] How often to you hav e a drink containing alcohol? Monthly or less [facility] How many standard dr inks containing alcohol do you have on a typical day? 1 or 2 [facility] How often do you hav e 6 or more drinks on 1 occasion? Never [facility] How hard is it for y ou to pay for the very basics like food, housing, medical care, and heating Not hard at all [facility] Do you feel stress - tense, restless, nervous, or anxious, or unable to sleep at night because your mind is troubled all the time - these days [OSQ] Only a little [facility] (I/We) worried margot er (my/our) food would run out before (I/we) got money to buy more. Never true [facility] In the past 12 month s, was there a time when you were not able to pay the mortgage or rent on time? No [facility] Start: 11-21-2021 Gender identity Identifies as female gender (finding) [facility] Start: 11-21-2021 Sexual orientation Heterosexual (finding) [facility] Do you feel stress - tense, restless, nervous, or anxious, or unable to sleep at night because your mind is troubled all the time - these days [OSQ] To some extent [facility] Functional Status Date Assessment Result Facility 10-22-2014 Are you deaf, or do you have serious difficulty hearing No 10/22/2014 1:38 PM Cristina Lainez MA No [facility] 10-22-2014 Are you blind, or do you have serious difficulty seeing, even when wearing glasses No 10/22/2014 1:38 PM Cristina Lainez MA No [facility] 10-22-2014 Do you have serious difficulty walking or climbing stairs No 10/22/2014 1:38 PM Cristina Lainez MA [facility] 10-22-2014 Do you have difficul ty dressing or bathing No 10/22/2014 1:38 PM Cristina Lainez MA No [facility] 10-22-2014 Because of a physica l, mental, or emotional condition, do you have difficulty doing errands alone such as visiting a physician's office or shopping No 10/22/2014 1:38 PM Cristina Lainez MA [facility] Mental Status Date Assessment Result Facility 09-21-2022 Cognitive function Level Of Cons ciousness Awake;Alert;Appropriate;Fol lows Commands [facility] Work Phone: 10-22-2014 Because of a physica l, mental, or emotional condition, do you have serious difficulty concentrating, remembering, or making decisions No 10/22/2014 1:38 PM PATRICK Mccloud GerardoHUNTER ayoub No [facility] Clinical Notes 06-04-2018 to 02-12-2025 Elder Chao PA-C - 02/12/2025 11:15 AM EDTTelephone Encounter - Marina Davila LPN - 02/02/2025 11:58 AM EDTTelephone Encounter - Marina Davila LPN - 02/02/2025 11:58 AM EDT Note Date & Type Note Facility 02-12-2025 History of Presen t illness Narrative Images from the original note were not included. [facility] FOR MULTIPLE SCLEROSIS FOLLOWUP/ESTABLISHED PATIENT VISIT PRINCIPAL NEUROLOGIC DIAGNOSIS: Multiple Sclerosis 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 Office Visit from 04/25/[address] [facility] Office Visit from 08/14/[address] [facility] Upper Extremity Domain T Score 50 56.84 50.03 Lower Extremity Domain T Score 57 62.28 62.28 Cognitive Function Domain T Score 37 46.85 46.85 Positive Affect Well Being T Score -- 63.61 57.39 Ability To Participate In Social Roles T Score 42 47.04 54.53 Satisfaction With Social Roles T Score 41 50.14 49.2 Neuro-QoL Symptoms (higher=worse symptoms) [facility] from 12/29/[address] [facility] Office Visit from 04/25/[address] [facility] Office Visit from 08/14/[address] [facility] Sleep Domain T Score 60 55.63 54.3 Fatigue Domain T Score 64 64.84 52.3 Anxiety Domain T Score 72 64.58 65.23 Depression Domain T Score 55 50.36 47.97 Stigma Domain T Score 51 50.07 48.56 Emotional Behavior Dyscontrol T Score -- 50.82 47.39 *NeuroQoL is a multi-domain patient-reported quality of life questionnaire. PHQ-9 [facility] Office Visit from 03/18/2024 in [facility] Office Visit from 03/06/2023 in [facility] PHQ-9 Score 3 7 *PHQ-9 is a questionnaire for depressive symptoms, with scores 0-4 indicating none, 5-9 mild, 10-14 moderate, 15-19 moderately severe, and 20-27 severe symptoms. PROMIS-10 [facility] Office Visit from 11/21/2024 in [facility] Appointment from 11/18/2024 in [facility] Global Physical Health T Score 47.7 47.7 [...] Obesity, Class III, BMI 40-49.9 (morbid obesity) ([facility]) 08/15/2022 PCOS (polycystic ovarian syndrome) 03/14/2016 PMH - PAST MEDICAL HISTORY OF radioactive iiodine Postprocedural hypothyroidism 04/23/2003 Seasonal allergies 07/26/2021 Takotsubo cardiomyopathy 03/14/[address] Trevino PAST SURGICAL HISTORY Procedure Laterality Date 2D ECHO (EXEP) 06/21/2020 EF=40%, mild syst dysf 2D ECHO (EXEP) 04/12/2021 EF=45%, mild syst dysf, trival IN, TI 2D ECHO (EXEP) 08/08/2021 EF=45%, no significant valve disease ANKLE ARTHROSCOPY/SURGERY Right ECHO LVEF 37% ECHOCARDIOGRAM 05/29/2017 LEXISCAN STRESS TEST 06/21/2020 EF=41% , changes consistent with previous IN, no new reversible ischemic areas. PAST SURGICAL [...] Flowsheet Row Office Visit from 02/12/[address] [facility] Office Visit from 04/25/[address] [facility] Office Visit from 08/14/[address] [facility] Processing Speed Total Number Correct 59 [...] 5 Biceps 5 5 Triceps 5 5 Animal Trapper 5 5 Dorsal interossei 5 5 Lower [...] D supplementation Follow-up: In 6 months at [place] or Virtual Visit with [facility] APC or sooner if needed I spent a total of 45 minutes on the date of the service which included preparing to see the patient, [id number] patient care, completing clinical documentation, obtaining and/or reviewing separately obtained history, performing a medically appropriate examination, counseling and educating the patient/family/caregiver, ordering medications, tests, or procedures, and communicating results to the patient/family/caregiver. Elder Chao PA-C The chart was reviewed for possible participation in the following studies:None documented in this encounter [facility] 02-12-2025 Note HNO ID: [id number] Author: ELDER CHAO PA-C Service: ? Author Type: Physician Site Leasing Agent Type: Progress Notes Filed: 02/12/2025 13:45 Note Text: [facility] FOR MULTIPLE SCLEROSIS FOLLOWUP/ESTABLISHED PATIENT VISIT PRINCIPAL NEUROLOGIC DIAGNOSIS: Multiple Sclerosis [facility] FOLLOWUP VISIT MS DISEASE HISTORY: Date [...] INTERVAL HISTORY: Usual treating team: Efrem --> Ryan The patient is accompanied by self. 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 Office Visit from 04/25/[address] [facility] Office Visit from 08/14/[address] [facility] Upper Extremity Domain T Score 50 [...] Flowsheet Row [facility] from 12/29/[address] [facility] Office Visit from 04/25/[address] [facility] Office Visit from 08/14/[address] [facility] Sleep Domain T Score 60 55.63 54.3 Fatigue Domain T Score 64 64.84 52.3 Anxiety Domain T Score 72 64.58 65.23 Depression Domain T Score 55 50.36 47.97 Stigma Domain T Score 51 50.07 48.56 Emotional Behavior Dyscontrol T Score -- 50.82 47.39 *NeuroQoL is a multi-domain patient-reported quality of life questionnaire. PHQ-9 Flowsheet [facility] Office Visit from 03/18/2024 in [facility] Office Visit from 03/06/2023 in [facility] PHQ-9 Score 3 7 *PHQ-9 is a questionnaire for depressive symptoms, with scores 0-4 indicating none, 5-9 mild, 10-14 moderate, 15-19 moderately severe, and 20-27 severe symptoms. PROMIS-10 Flowsheet Row Office Visit from 11/21/2024 in [facility] Appointment from 11/18/2024 in [facility] Global Physical Health T Score 47.7 47.7 [...] GERD without esophagitis (more content not included)... [facility] 02-02-2025 Telephone encounter Note Pt notified of same via . Marina Davila LPN [facility] 02-02-2025 Miscellaneous Notes Pt notified of [...] 2025 9:41 AM documented in this encounter [facility] 02-02-2025 Telephone encounter Note Coreg is prescribed by cardio. All other meds requested have been sent [facility] 02-02-2025 Telephone encounter Note Prescription Refill [...] Demarco LPN February 02, 2025 9:41 AM [facility] 01-22-2025 Note HNO ID: [id number] Author: MARINA DAVILA LPN Service: ? Author Type: LICENSED NURSE Type: Progress Notes Filed: 01/22/2025 07:10 Note Text: Scan on 01/21/2025 4:25 PM by Provider, VITALIY Vela: Consultation - Cardiology [facility] 01-05-2025 Telephone encounter Note The following [...] capsule by mouth two times a day. Elder Chao PA-C [facility] 01-05-2025 Miscellaneous Notes The following approved [...] capsule by mouth two times a day. [email or web address] Elder Chao PA-C Happy to see her in person. I placed new brain MRI orders. Agree with DMF at [facility] [employer]. If she is agreeable I can send [...] in 6-12 months documented in this encounter [facility] 01-04-2025 Telephone encounter Note Duplicate encounter, see [facility] from 12/28/24 for response. Closing this encounter. GLO Kim [facility] 01-04-2025 Miscellaneous Notes Duplicate encounter, see [facility] from 12/28/24 for response. Closing this encounter. GLO Kim documented in this encounter [facility] 12-30-2024 Telephone encounter Note Happy to see her in person. I placed new brain MRI orders. Agree with DMF at [facility] [employer]. If she is agreeable I can send Rx to [facility] for processing. Elder Chao PA-C [facility] 12-29-2024 Telephone encounter Note Patient last seen 02/01/23 for a virtual visit Patient last seen in-person 12/27/2021 Per visit 02/02/24: PLAN: 1. Continue dimethyl fumarate 2. Labs q6-12 months 3. Brain MRI in 1 year or sooner if new symptoms 4. Continue Lyrica 5. Consider spasticity group referral 6. Follow-up in 6-12 months [facility] 11-26-2024 Note HNO ID: [id number] Author: KADY SOL APRN.TELEPHONE COLLECTOR Service: ? Author Type: Nurse Practitioner Type: Progress Notes Filed: 11/26/2024 09:15 Note Text: Patient declined tool tender. 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 History LMP: 11/01/2024 (Approximate), Having periods Age at Menarche: 9 Age at First : Age at Menopause: Industrial Sales Engineer History Comments: Sexual Activity: Yes; Male Contraception: Pill Menstrual Tracking History Flowsheet Row Appointment from 11/26/2024 in OB/Gynecology Menstrual Flow Light PAST MEDICAL HISTORY Diagnosis Date Cardiomyopathy ([facility]) 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 Mason Neuro Muscle spasm 12/16/2019 Related to MS. On Clonopin Obesity, Class II, BMI 35-39.9 08/15/2022 Obesity, Class III, BMI 40-49.9 (morbid obesity) ([facility]) 08/15/2022 PCOS (polycystic ovarian syndrome) 03/14/2016 PMH - PAST MEDICAL HISTORY OF radioactive iiodine Postprocedural hypothyroidism 04/23/2003 Seasonal allergies 07/26/2021 Takotsubo cardiomyopathy 03/14/[address] Trevino PAST SURGICAL HISTORY Procedure Laterality Date 2D ECHO (EXEP) 06/21/2020 EF=40%, mild syst dysf 2D ECHO (EXEP) 04/12/2021 EF=45%, mild syst dysf, trival IN, TI 2D ECHO (EXEP) 08/08/2021 EF=45%, no significant valve disease ANKLE ARTHROSCOPY/SURGERY Right ECHO LVEF 37% ECHOCARDIOGRAM 05/29/2017 LEXISCAN STRESS TEST 06/21/2020 EF=41% , changes consistent with previous IN, no new reversible ischemic areas. PAST SURGICAL [...] Mother 65 Coronary Artery Disease Father from [place] age 60 other (Sudden ) Father other [...] discussed with the Patient or Patient's Authorized Coil Inspector. As applicable, any other physic (more content not included)... [facility] 11-26-2024 History of Presen t illness Narrative Patient declined tool tender. 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 PAST SURGICAL [...] Mother 65 Coronary Artery Disease Father from [place] age 60 other (Sudden ) Father other [...] discussed with the Patient or Patient's Authorized Coil Inspector. As applicable, any other physician, advance practice provider, medical student, or other health professional student that will be observing or involved in the sensitive examination for educational or training purposes was discussed with the Patient or Authorized Coil Inspector. The Patient or Authorized Coil Inspector has agreed to proceed with the sensitive [...] external genitalia normal, normal Bartholin's glands, urethra, [place]'s glands, no vulvar lesions, no cervical lesions, physiologic discharge present, normal appearing perineal body and perianal region BIMANUAL: uterus normal size, shape and consistency, no adnexal masses, and non-tender RECTOVAGINAL: deferred. NEURO: alert and oriented x3,exam grossly non-focal EXTREMITIES: normal ASSESSMENT/PLAN: 1) Health maintenance: Pap/HPV up to date and due 2025 due to history Mammogram ordered by PCP to be completed at [facility] Nutrition, exercise and routine health maintenance exams reviewed. 2) Contraception: combined hormonal contraceptives. Contraceptive options reviewed and information provided. Discussed semaglutide, contraception and BTB. 3) STD screening: Declined STD check. 4) Follow up one year or sooner as needed Kady Sol APRN.BA documented in this encounter [facility] 11-21-2024 History of Presen t illness [...] a z-eddie since she was going to [employer]. 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 Downing-Santos Neuro Muscle spasm 12/16/2019 Related to MS. On Clonopin Obesity, Class II, BMI 35-39.9 08/15/2022 Obesity, Class III, BMI 40-49.9 (morbid obesity) ([facility]) 08/15/2022 PCOS (polycystic ovarian syndrome) 03/14/2016 PMH - PAST MEDICAL HISTORY OF radioactive iiodine Postprocedural hypothyroidism 04/23/2003 Seasonal allergies 07/26/2021 Takotsubo cardiomyopathy 03/14/[address] Trevino Previous Surgical History PAST SURGICAL HISTORY Procedure Laterality Date 2D ECHO (EXEP) 06/21/2020 EF=40%, mild syst dysf 2D ECHO (EXEP) 04/12/2021 EF=45%, mild syst dysf, trival IN, TI 2D ECHO (EXEP) 08/08/2021 EF=45%, no significant valve disease ANKLE ARTHROSCOPY/SURGERY Right ECHO LVEF 37% ECHOCARDIOGRAM 05/29/2017 LEXISCAN STRESS TEST 06/21/2020 EF=41% , changes consistent with previous IN, no new reversible ischemic areas. PAST SURGICAL [...] Mother 65 Coronary Artery Disease Father from [place] age 60 other (Sudden ) Father other [...] 01/25/2022 Influenza Vaccine(1) due on 06/07/2024 Covid-19 Vaccine(6 ) due on 06/07/2024 Mammogram Screening due on [...] Isael Fish MD documented in this encounter [facility] 11-21-2024 Note HNO ID: [id number] Author: ISAEL FISH MD Service: ? Author [...] a z-eddie since she was going to [employer]. 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 Downing-Santos Neuro Muscle spasm 12/16/2019 Related to MS. On Clonopin Obesity, Class II, BMI 35-39.9 08/15/2022 Obesity, Class III, BMI 40-49.9 (morbid obesity) ([facility]) 08/15/2022 PCOS (polycystic ovarian syndrome) 03/14/2016 PMH - PAST MEDICAL HISTORY OF radioactive iiodine Postprocedural hypothyroidism 04/23/2003 Seasonal allergies 07/26/2021 Takotsubo cardiomyopathy 03/14/[address] Trevino Previous Surgical History PAST SURGICAL HISTORY Procedure Laterality Date 2D ECHO (EXEP) 06/21/2020 EF=40%, mild syst dysf 2D ECHO (EXEP) 04/12/2021 EF=45%, mild syst dysf, trival IN, TI 2D ECHO (EXEP) 08/08/2021 EF=45%, no significant valve disease ANKLE ARTHROSCOPY/SURGERY Right ECHO LVEF 37% ECHOCARDIOGRAM 05/29/2017 LEXISCAN STRESS TEST 06/21/2020 EF=41% , changes consistent with previous IN, no new reversible ischemic areas. PAST SURGICAL [...] Mother 65 Coronary Artery Disease Father from [place] age 60 other (Sudden ) Father other [...] mouth daily at (more content not included)... [facility] 11-06-2024 Telephone encounter Note Already addressed in duplicate message. [facility] 11-06-2024 Miscellaneous Notes Already addressed in [...] 2024 9:09 AM documented in this encounter [facility] 11-06-2024 Telephone encounter Note Let patient [...] prescription at the pharmacy Isael Fish MD [facility] 11-06-2024 Miscellaneous Notes Let patient know [...] 2024 8:40 AM documented in this encounter [facility] 11-06-2024 Telephone encounter Note Prescription Refill [...] Yamile Youngblood November 06, 2024 9:09 AM [facility] 11-06-2024 Telephone encounter Note Prescription Refill [...] Demarco LPN November 06, 2024 8:40 AM [facility] 11-05-2024 Note HNO ID: [id number] Author: ISAEL FISH MD Service: ? Author Type: Physician Type: Progress Notes Filed: 11/05/2024 13:49 Note Text: Please let patient know her routine f/u would be better done in person since I wont have a BP check or be able to do an examination so the virtual will be very limited in scope. [facility] 11-05-2024 Note HNO ID: [id number] Author: MARINA DAVILA LPN Service: ? Author Type: LICENSED NURSE Type: Progress Notes Filed: 11/05/2024 08:21 Note Text: Labs ordered by Dr Fish. Pt has VV 11/18/[address] Fish. Scan on 11/04/2024 6:35 PM by Provider, External, PAKierraC: Chemistry [facility] 11-05-2024 History of Presen t illness Narrative Labs ordered by Dr Fish. Pt has VV 11/18/[address] Fish. Scan on 11/04/2024 6:35 PM by Provider, VITALIY Vela: Chemistry documented in this encounter [facility] 09-01-2024 Telephone encounter Note Summary: appointment tried calling patient to get her scheduled for a follow up but patients refused appointment [facility] 09-01-2024 Miscellaneous Notes Summary: appointment tried calling patient to get her scheduled for a follow up but patients refused appointment documented in this encounter [facility] 08-31-2024 Telephone encounter Note The following [...] once daily. Authorizing Provider: ISAEL FISH MD [facility] 08-31-2024 Miscellaneous Notes The following approved [...] 2024 8:05 AM documented in this encounter [facility] 08-31-2024 Telephone encounter Note Prescription Refill [...] Peter MA August 31, 2024 8:05 AM [facility] 07-15-2024 Telephone encounter Note Spoke with patient and she is now feeling a little better. Evelina Peter MA [facility] 07-15-2024 Miscellaneous Notes Spoke with patient and she is now feeling a little better. Evelina Peter MA documented in this encounter [facility] 05-29-2024 Telephone encounter Note Annual exam [...] week of placebo pills. Kimberly Plata RN [facility] 05-29-2024 Miscellaneous Notes Annual exam moved [...] Kimberly Plata RN documented in this encounter [facility] 05-29-2024 Telephone encounter Note Appt rescheduled for 11/26/24 at 7am. Kimberly Plata RN [facility] 05-29-2024 Miscellaneous Notes Appt rescheduled for 11/26/24 at 7am. Kimberly Plata RN Yes, that will be fine. Kady Sol APRN.BA Patient called back and asking if annual [...] Kimberly Plata RN documented in this encounter [facility] 05-29-2024 Telephone encounter Note Yes, that will be fine. Kady Sol APRN.BA [facility] 05-29-2024 Telephone encounter Note Patient called [...] put into that spot? Skyla Plaza RN [facility] 05-25-2024 Telephone encounter Note The following [...] was identified. 05/25/2024 by Isael Fish MD [facility] 05-25-2024 Miscellaneous Notes The following approved medication requests have been transmitted electronically. Requested Prescriptions Signed Prescriptions Disp Refills clonazePAM (KLONOPIN) 0.5 mg tablet 270 tablet 0 Sig: Take 1 tablet by mouth three times a day for 90 days. Authorizing Provider: ISAEL FISH MD [facility] website checked and validated. All prescriptions have [...] a day for 90 days. Yamile Youngblood May 25, 2024 10:27 AM documented in this encounter [facility] 05-25-2024 Telephone encounter Note The following approved medication requests have been transmitted electronically. Requested Prescriptions Signed Prescriptions Disp Refills scopolamine (TRANSDERM-SCOP) patch 1.5 mg/72 hr (delivers 1 mg over 3 days) 3 Patch 0 Sig: Apply 1 Patch as directed every 72 hours. Apply patch to skin behind ear 4hrs prior to travel. Isael Fish MD [facility] 05-25-2024 Miscellaneous Notes The following approved medication requests have been transmitted electronically. Requested Prescriptions Signed Prescriptions Disp Refills scopolamine (TRANSDERM-SCOP) patch 1.5 mg/72 hr (delivers 1 mg over 3 days) 3 Patch 0 Sig: Apply 1 Patch as directed every 72 hours. Apply patch to skin behind ear 4hrs prior to travel. Isael Fish MD documented in this encounter [facility] 05-25-2024 Telephone encounter Note Left message for patient to call office to get appointments scheduled and find out what medication Pt needs refill on. Kimberly Plata RN [facility] 05-25-2024 Telephone encounter Note Prescription Refill [...] a day for 90 days. Yamile Youngblood May 25, 2024 10:27 AM [facility] 05-04-2024 Note HNO ID: [id number] Author: EVELINA PETER MA Service: ? Author Type: Marine Electrician Apprentice Type: Progress Notes Filed: 05/04/2024 16:43 Note Text: Scan on 05/01/2024 7:57 AM by ProviderDane PA-C: Consultation - Orthopedics Scan on 05/01/2024 9:22 AM by Dane Coughlin PA-C: X-ray Evelina Peter MA [facility] 05-04-2024 History of Presen t illness Narrative Scan on 05/01/2024 7:57 AM by Dane Coughlin PA-C: Consultation - Orthopedics Scan on 05/01/2024 9:22 AM by ProviderDane PA-C: X-ray Evelina Peter MA documented in this encounter [facility] 04-22-2024 Telephone encounter Note Patient notified and faxed to Dr. Montero. Evelina Peter MA [facility] 04-22-2024 Miscellaneous Notes Patient notified and faxed to Dr. Montero. Evelina Peter MA Please fax EMG reports to DR. Montero at [facility] and let patient know we did this. Patient notified and voiced understanding. Evelina Peter MA Patient does feel it is coming from her back. Her Surgeon was Dr. Jose MARTIN. She also has an appointment with Dr. Montero at [facility]. Evelina Peter MA Images from the original [...] a pain management provider 3) see a performance improvement specialist ( not sure who did her surgery) Received results of pt's EMG/NCS ordered by pcp. See below. Marina Davila LPN Scan on 04/21/2024 10:16 AM by Provider, VITALIY Vela: Neurology documented in this encounter [facility] 04-22-2024 Telephone encounter Note Please fax EMG reports to DR. Montero at [facility] and let patient know we did this. [facility] 04-22-2024 Telephone encounter Note Patient notified and voiced understanding. Evelina Peter MA Patient does feel it is coming from her back. Her Surgeon was Dr. Jose MARTIN. She also has an appointment with Dr. Montero at [facility]. Evelina Peter MA [facility] 04-21-2024 Telephone encounter Note Images from [...] a pain management provider 3) see a performance improvement specialist ( not sure who did her surgery) [facility] 04-21-2024 Telephone encounter Note Received results of pt's EMG/NCS ordered by pcp. See below. Marina Davila LPN Scan on 04/21/2024 10:16 AM by ProviderDane PA-C: Neurology [facility] 03-26-2024 Telephone encounter Note Received lab results ordered by pcp. Marina Davila LPN Scan on 03/25/2024 5:35 PM by ProviderDane PA-C: Miscellaneous Lab [facility] 03-26-2024 Miscellaneous Notes Received lab results ordered by pcp. Marina Davila LPN Scan on 03/25/2024 5:35 PM by ProviderDane PA-C: Miscellaneous Lab documented in this encounter [facility] 03-24-2024 Telephone encounter Note Pt notified. Viviana Hill MA [facility] 03-24-2024 Miscellaneous Notes Pt notified. Viviana Hill MA Let patient know folate level was ok. Received labs results from [facility] ordered by pcp. Marina Davila LPN Scan on 03/23/2024 12:10 PM by ProviderDane PA-C: Chemistry documented in this encounter [facility] 03-24-2024 Telephone encounter Note Let patient know folate level was ok. [facility] 03-24-2024 Telephone encounter Note Received labs results from [facility] ordered by pcp. Mairna Davila LPN Scan on 03/23/2024 12:10 PM by Provider, External, PAKierraC: Chemistry [facility] 03-18-2024 Instructions Isael Fish MD - 03/18/2024 5:26 PM EDT Please get labs done on or after 09/04/2024 prior to your next visit. documented in this encounter [facility] 03-18-2024 Note HNO ID: [id number] Author: ISAEL FISH MD Service: ? Author [...] (EXEP) 04/12/2021 EF=45%, mild syst dysf, trival IN, TI 2D ECHO (EXEP) 08/08/2021 EF=45%, no significant valve disease ANKLE ARTHROSCOPY/SURGERY Right ECHO LVEF 37% ECHOCARDIOGRAM 05/29/2017 LEXISCAN STRESS TEST 06/21/2020 EF=41% , changes consistent with previous IN, no new reversible ischemic areas. PAST SURGICAL [...] Mother 65 Coronary Artery Disease Father from [place] age 60 other (Sudden ) Father other [...] mg) by mout (more content not included)... [facility] 03-18-2024 History of Presen t illness [...] (EXEP) 04/12/2021 EF=45%, mild syst dysf, trival IN, TI 2D ECHO (EXEP) 08/08/2021 EF=45%, no significant valve disease ANKLE ARTHROSCOPY/SURGERY Right ECHO LVEF 37% ECHOCARDIOGRAM 05/29/2017 LEXISCAN STRESS TEST 06/21/2020 EF=41% , changes consistent with previous IN, no new reversible ischemic areas. PAST SURGICAL [...] Mother 65 Coronary Artery Disease Father from [place] age 60 other (Sudden ) Father other [...] - FOLATE, SERUM - check NCS/EMG at [facility] F/u 6 months check TSH, lipid Isael Fish MD documented in this encounter [facility] 03-17-2024 Note HNO ID: [id number] Author: KARRI PADILLA LPN Service: ? Author Type: LICENSED NURSE Type: Progress Notes Filed: 03/17/2024 17:51 Note Text: Scan on 03/13/2024 1:15 PM by ProviderDane PA-C: Mammography [facility] 03-17-2024 History of Presen t illness Narrative Scan on 03/13/2024 1:15 PM by Dane Coughlin PA-C: Mammography documented in this encounter [facility] 03-10-2024 Note HNO ID: [id number] Author: KARRI PADILLA LPN Service: ? Author Type: LICENSED NURSE Type: Progress Notes Filed: 03/10/2024 10:53 Note Text: Scan on 03/10/2024 9:40 AM by Provider, ExternalBERNABEC: Chemistry Scan on 03/10/2024 9:32 AM by Provider External, PA-C: Chemistry Scan on 03/10/2024 9:23 AM by Provider External, PA-C: Chemistry Scan on 03/10/2024 9:14 AM by Provider External, PA-C: Hematology Scan on 03/10/2024 9:09 AM by Provider External, PA-C: Hematology [facility] 03-10-2024 History of Presen t illness Narrative Scan on 03/10/2024 9:40 AM by ProviderDane PA-C: Chemistry Scan on 03/10/2024 9:32 AM by ProviderDane, PA-C: Chemistry Scan on 03/10/2024 9:23 AM by Provider External, PA-C: Chemistry Scan on 03/10/2024 9:14 AM by Provider External, PA-C: Hematology Scan on 03/10/2024 9:09 AM by Provider External PA-C: Hematology documented in this encounter [facility] 01-27-2024 History of Presen t illness Narrative Scan on 01/24/2024 4:34 PM by ProviderDane PA-C: Chemistry Lovely Ch LPN documented in this encounter [facility] 01-24-2024 Miscellaneous Notes Pt notified that all prescriptions requested except carvedilol was sent to the pharmacy & she needs to check with cardio for that refill. Pt notified via MyChart. Lovely Ch LPN Let patient know her carvedilol comes from [facility]. Rest of her meds were refilled. The [...] Alex Geller LPN. documented in this encounter [facility] 01-24-2024 Miscellaneous Notes PDMP website checked and validated. All prescriptions have been APPROPRIATELY filled. No suspicious activity was identified. 01/24/2024 by Rich Nicholson APRN.CNP The following approved medication requests have been transmitted electronically. Requested Prescriptions Signed Prescriptions Disp Refills baclofen 10 mg tablet 90 tablet 1 Sig: Take 1 tablet by mouth once daily as needed. Authorizing Provider: RICH NICHOLSON pregabalin (LYRICA) 50 mg capsule 180 capsule 1 Sig: Take 1 capsule by mouth two times a day for 90 days. Authorizing Provider: RICH NICHOLSON APRN.CNP Source : mychart from patient requesting refill. [...] None Jasmin Bellamy documented in this encounter [facility] 01-24-2024 Miscellaneous Notes The following approved medication requests have been transmitted electronically. Requested Prescriptions Signed Prescriptions Disp Refills dimethyl fumarate (TECFIDERA) [address] 180 capsule 3 Sig: Take 1 capsule (240 mg) by mouth two times a day. Authorizing Provider: RICH NICHOLSON APRN.TELEPHONE COLLECTOR Source : mychart from patient requesting refill. Delivery : e-script Requested Prescriptions Pending Prescriptions Disp Refills dimethyl fumarate (TECFIDERA) [address] 180 capsule 3 Sig: Take 1 capsule (240 mg) by mouth two times a day. DX : Patient last seen: 02/01/2023 Next Appointment : None Jasmin Bellamy documented in this encounter [facility] 11-11-2023 Miscellaneous Notes MERLE: 09/11/23-6 month F/U with PCP No OV to [facility] since for COVID sx/dx. Elizabet Gregg MA documented in this encounter [facility] 09-13-2023 Miscellaneous Notes Pt notified. Viviana Hill Ma Let patient know her rib x-rays were ok. Received results of pt's x-ray done at [facility] ordered by Dr Fish. Scan on 09/13/2023 11:08 AM by Provider, VITALIY Vela: X-ray documented in this encounter [facility] 09-11-2023 History of Presen t illness [...] Any recent ER/hospital visits? None Patient sees [facility] - last visit 02/2023 Patient sees Neurology for MS Patient last saw Cardiology - [facility] 02/2023 Past medical history, appointments, [...] 03/14/2016 Multiple sclerosis (HCC) 12/16/[address] Salina-Santos Neuro Muscle spasm 12/16/2019 Related to MS. On Clonopin Obesity, Class II, BMI 35-39.9 08/15/2022 Obesity, Class III, BMI 40-49.9 (morbid obesity) ([facility]) 08/15/2022 PCOS (polycystic ovarian syndrome) 03/14/2016 PMH - PAST MEDICAL HISTORY OF radioactive iiodine Postprocedural hypothyroidism 04/23/2003 Seasonal allergies 07/26/2021 Takotsubo cardiomyopathy 03/14/[address] Trevino Previous Surgical History PAST SURGICAL HISTORY Procedure Laterality Date 2D ECHO (EXEP) 06/21/2020 EF=40%, mild syst dysf 2D ECHO (EXEP) 04/12/2021 EF=45%, mild syst dysf, trival IN, TI 2D ECHO (EXEP) 08/08/2021 EF=45%, no significant valve disease ANKLE ARTHROSCOPY/SURGERY Right ECHO LVEF 37% ECHOCARDIOGRAM 05/29/2017 LEXISCAN STRESS TEST 06/21/2020 EF=41% , changes consistent with previous IN, no new reversible ischemic areas. PAST SURGICAL HISTORY OF arthroscopic knee surgery on right PAST SURGICAL HISTORY OF reconstructive to right leg for dog bite PAST SURGICAL HISTORY OF TMJ surgery which helped head pain. PAST SURGICAL HISTORY OF Jaw arthroscopy/surgery PAST SURGICAL HISTORY OF 2012 breast reduction PAST SURGICAL HISTORY OF 01/15/2017 micodiscectomy L4-L5 PAST SURGICAL HISTORY OF Bilateral 12/2018 Lasik surgery Family History FAMILY HISTORY Problem Relation Age of Onset other (diabetes mellitus) Mother other (pancreatic cancer) Mother 65 Coronary Artery Disease Father from [place] 60 other (Sudden ) Father other [...] 01/25/2022 Influenza Vaccine(1) due on 06/07/2023 Covid-19 Vaccine( season) due on 06/07/2023 Mammogram Screening Never [...] which included preparing to see the patient, [id number] patient care, completing clinical documentation, performing a medically appropriate examination, counseling and educating the patient/family/caregiver and ordering medications, tests, or procedures. Isael Fish MD documented in this encounter [facility] 09-10-2023 Miscellaneous Notes Spoke with pt [...] MA Merle 02/2023 Nov 09/2023 Last refill; 02/2023 documented in this encounter [facility] 09-09-2023 Miscellaneous Notes The following approved [...] times a day. Authorizing Provider: KATHIE GONZALEZ APRN.TELEPHONE COLLECTOR Source : mychart from patient requesting refill. [...] None Jasmin Bellamy documented in this encounter [facility] 09-09-2023 Miscellaneous Notes The following approved [...] Last refill; 05/2023 documented in this encounter [facility] 09-02-2023 Miscellaneous Notes The following approved [...] first thing in the morning. Please send [facility]. Patient indicated that she has notices more [...] Davila LPN Received pt's labs done at [facility]. See links below. Marina Davila LPN Scan on 08/30/2023 10:36 AM by Provider, External, PAKierraC: Miscellaneous Lab Scan on 08/30/2023 9:42 AM by Dane Coughlin PA-C: Chemistry Scan on 08/30/2023 9:09 AM by ProviderDane PA-C: Chemistry documented in this encounter [facility] 06-13-2023 History of Presen t illness Narrative MRI results and Lab results attached below: View External Labs - Miscellaneous Lab [ID [id number]] View External Imaging - MRI [ID [id number]] Viviana Hill Ma documented in this encounter [facility] 05-22-2023 Miscellaneous Notes Last refill 01/07/23 Qty: 90 with 1 refill [facility] 03/06/23 NOV 09/11/23 Marina Davila LPN documented in this encounter [facility] 05-15-2023 Miscellaneous Notes The following approved [...] Flower Schroeder LPN documented in this encounter [facility] 03-06-2023 Instructions Isael Fish MD - 03/06/2023 5:06 PM EDT Please get labs done on or after 08/23/2023 prior to your next visit. documented in this encounter [facility] 03-06-2023 History of Presen t illness [...] (EXEP) 04/12/2021 EF=45%, mild syst dysf, trival IN, TI 2D ECHO (EXEP) 08/08/2021 EF=45%, no significant valve disease ANKLE ARTHROSCOPY/SURGERY Right ECHO LVEF 37% ECHOCARDIOGRAM 05/29/2017 LEXISCAN STRESS TEST 06/21/2020 EF=41% , changes consistent with previous [place], no new reversible ischemic areas. PAST SURGICAL [...] Mother 65 Coronary Artery Disease Father from [place] age 60 other (Sudden ) Father other [...] diet of 1000 mg/day for under 50, [id number] mg/day for 50+ - Discussed need and [...] which included preparing to see the patient, [id number] patient care, completing clinical documentation, performing a medically appropriate examination, counseling and educating the patient/family/caregiver and ordering medications, tests, or procedures. Isael Fish MD documented in this encounter [facility] 02-18-2023 Miscellaneous Notes Faxed. Evelina Peter MA Labs ready to be faxed to [facility] for patient. documented in this encounter [facility] 02-12-2023 History of Presen t illness Narrative Scan on 02/12/2023 12:37 PM by External Provider, VITALIY: Consultation - Cardiology documented in this encounter [facility] 02-04-2023 Miscellaneous Notes Faxed. Evelina Peter MA Order ready to be faxed. documented in this encounter [facility] 02-01-2023 History of Presen t illness Narrative Images from the original note were not included. [facility] FOR MULTIPLE SCLEROSIS FOLLOWUP/ESTABLISHED PATIENT VIRTUAL VISIT PRINCIPAL NEUROLOGIC DIAGNOSIS: Multiple Sclerosis [facility] FOLLOWUP VISIT MS DISEASE HISTORY: Date [...] visit. Either the patient or their legal data entry representative has been informed of the risks [...] Flowsheet Row [facility] from 12/29/[address] [facility] Office Visit from 04/25/[address] [facility] Office Visit from 08/14/[address] [facility] Upper Extremity Domain T Score 50 [...] Flowsheet Row [facility] from 12/29/[address] [facility] Office Visit from 04/25/[address] [facility] Office Visit from 08/14/[address] [facility] Sleep Domain T Score 60 55.63 [...] (EXEP) 04/12/2021 EF=45%, mild syst dysf, trival IN, TI 2D ECHO (EXEP) 08/08/2021 EF=45%, no significant valve disease ANKLE ARTHROSCOPY/SURGERY Right ECHO LVEF 37% ECHOCARDIOGRAM 05/29/2017 LEXISCAN STRESS TEST 06/21/2020 EF=41% , changes consistent with previous [place], no new reversible ischemic areas. 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 Elder Chao PA-C documented in this encounter [facility] 01-23-2023 History of Presen t illness Narrative Scan on 01/18/2023 4:34 PM by External Provider: Chemistry Scan on 01/18/2023 4:49 PM by External Provider: MRI Scan on 01/18/2023 6:52 PM by External Provider: MRI Evelina Peter MA documented in this encounter [facility] 01-10-2023 History of Presen t illness Narrative Scan on 01/09/2023 1:36 PM by External Provider: Miscellaneous Lab Scan on 01/09/2023 1:19 PM by External Provider: Miscellaneous Lab documented in this encounter [facility] 01-07-2023 Miscellaneous Notes Patient has been [...] Last refill; 06/2022 documented in this encounter [facility] 12-25-2022 Miscellaneous Notes The following approved [...] Scheduling. Jasmin Bellamy documented in this encounter [facility] 12-19-2022 Miscellaneous Notes The following approved [...] None Jasmin Bellamy documented in this encounter [facility] 12-15-2022 Miscellaneous Notes The following approved medication requests have been transmitted electronically. Requested Prescriptions Signed Prescriptions Disp Refills meclizine (ANTIVERT) 12.5 mg tab 90 tablet 1 Sig: Take 1 tablet by mouth three times daily as needed (dizziness). Isael Fish MD documented in this encounter [facility] 11-21-2022 Miscellaneous Notes TC to patient who verbalized understanding and has no questions at this time. EFRA Nunez Left message for patient to contact office. Evelina Peter MA Let patient know her uric acid level was normal. Scan on 11/16/2022 10:08 AM by External Provider: Chemistry Please review. Isidro - kleber Peter MA documented in this encounter [facility] 11-16-2022 History of Presen t illness Narrative Scan on 11/16/2022 10:08 AM by External Provider: Chemistry documented in this encounter [facility] 10-15-2022 Miscellaneous Notes Faxed and patient notified. Evelina Peter MA order placed. Please place consult Dr. Walton fax: [phone] documented in this encounter [facility] 09-21-2022 Miscellaneous Notes The following approved [...] and did much better. Local pharmacy is [facility]. Routing to Elder Chao PA-C. Molly Palomino RN Spoke with Elder Chao PA-C, patient will need evaluation in ER to evaluate symptoms. Called patient, no answer. Message left indicating MyChart response will be sent with recommendations. Molly Palomino, RN documented in this encounter [facility] 08-28-2022 Miscellaneous Notes The following approved medication requests have been transmitted electronically. Requested Prescriptions Signed Prescriptions Disp Refills losartan (COZAAR) 50 mg tablet 90 tablet 1 Sig: Take 1 tablet by mouth once daily. Isael Fish MD Please see pt's message. Marina Davila LPN documented in this encounter [facility] 08-15-2022 Instructions Isael Fish MD - 08/15/2022 6:30 PM EST Please send Dr. Kleber alva My Chart message in a week or two with some home blood pressure readings documented in this encounter [facility] 08-15-2022 History of Presen t illness [...] (EXEP) 04/12/2021 EF=45%, mild syst dysf, trival IN, TI 2D ECHO (EXEP) 08/08/2021 EF=45%, no significant valve disease ANKLE ARTHROSCOPY/SURGERY Right ECHO LVEF 37% ECHOCARDIOGRAM 05/29/2017 LEXISCAN STRESS TEST 06/21/2020 EF=41% , changes consistent with previous [place], no new reversible ischemic areas. PAST SURGICAL [...] Mother 65 Coronary Artery Disease Father from [place] age 60 other (Sudden ) Father other [...] - will refer to Why weight at [facility]. 11. Encounter for immunization - ICD9: V03.89, [...] Isael Fish MD documented in this encounter [facility] 08-15-2022 Miscellaneous Notes Patient has been [...] advise. Soniya Cohn documented in this encounter [facility] 08-07-2022 Miscellaneous Notes Lab order faxed to [facility] lab Printed of TSH order that needs faxed to [facility]. This is the only lab needed. documented in this encounter [facility] 07-31-2022 History of Presen t illness Narrative Received completed FMLA Form and mailed back to patient as directed. Copy to be scanned to chart. Type of form: FMLA Form received via mail When form is completed, Mail form to BACK TO PATIENT Form has been forwarded to Nurse Practictioner: Elder Chao mailbox Jasmin Bellamy documented in this encounter [facility] 07-24-2022 Miscellaneous Notes Prilosec was refilled #60 with 2 refills on 06/20/22 to [facility] pharmacy. Pt notified via [employer] to check with pharmacy for refills. Viviana Hill Ma documented in this encounter [facility] 06-25-2022 Miscellaneous Notes Pt notified of same. Marina Davila LPN Let patient know her CBC, liver functions and pancreatic functions were all normal. documented in this encounter [facility] 06-20-2022 History of Presen t illness [...] (EXEP) 04/12/2021 EF=45%, mild syst dysf, trival IN, TI 2D ECHO (EXEP) 08/08/2021 EF=45%, no significant valve disease ANKLE ARTHROSCOPY/SURGERY Right ECHO LVEF 37% ECHOCARDIOGRAM 05/29/2017 LEXISCAN STRESS TEST 06/21/2020 EF=41% , changes consistent with previous [place], no new reversible ischemic areas. PAST SURGICAL [...] Mother 65 Coronary Artery Disease Father from [place] age 60 other (Sudden ) Father other [...] Isael Fish MD documented in this encounter [facility] 06-18-2022 Miscellaneous Notes Patient notified and scheduled. Evelina Peter MA Please contact patient and advise her I would like her to see me or Bing to eval the RUQ pain. This could be gal bladder. We can then print off any labs orders she needs and reschedule her appt for Oct at that time. documented in this encounter [facility] 05-02-2022 Miscellaneous Notes Patient has been [...] Rich Castellanos Pss documented in this encounter [facility] 04-19-2022 Miscellaneous Notes The following approved [...] None Jasmin Bellamy documented in this encounter [facility] 04-13-2022 Miscellaneous Notes Upon review of the chart. The medication requested for Coreg is prescribed by cardio. 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 PAST SURGICAL HISTORY OF arthroscopic knee surgery on right PAST SURGICAL HISTORY OF reconstructive to right leg for dog bite PAST SURGICAL HISTORY OF TMJ surgery which helped head pain. PAST SURGICAL HISTORY OF Jaw arthroscopy/surgery PAST SURGICAL HISTORY OF 2012 breast reduction PAST SURGICAL HISTORY OF 01/15/2017 micodiscectomy L4-L5 PAST SURGICAL HISTORY OF Bilateral 12/2018 Lasik surgery FAMILY HISTORY Problem Relation Age of Onset other (diabetes mellitus) Mother other (pancreatic cancer) Mother 65 Coronary Artery Disease Father from [place] age 60 other (Sudden ) Father COPD [...] external genitalia normal, normal Bartholin's glands, urethra, [place]'s glands, no vulvar lesions, no cervical lesions, [...] year or sooner as needed Kady Sol APRN.BA documented in this encounter [facility] 01-15-2022 Miscellaneous Notes The following approved [...] Rosie Tamez RN documented in this encounter [facility] 01-15-2022 Miscellaneous Notes Patient has been [...] Rosie Tamez RN documented in this encounter [facility] 12-27-2021 History of Presen t illness Narrative Images from the original note were not included. [facility] FOR MULTIPLE SCLEROSIS FOLLOWUP/ESTABLISHED PATIENT VISIT PRINCIPAL NEUROLOGIC DIAGNOSIS: Multiple Sclerosis [facility] FOLLOWUP VISIT MS DISEASE HISTORY: Date [...] of the year - promoted working in [employer] last year Has taken a total of [...] REVIEW OF SYSTEMS: Neuro-QoL Functions (higher=better functioning) [facility] from 12/29/[address] [facility] Office Visit from 04/25/[address] [facility] Office Visit from 08/14/[address] [facility] Upper Extremity Domain T Score 50 56.84 50.03 Lower Extremity Domain T Score 57 62.28 62.28 Cognitive Function Domain T Score 37 46.85 46.85 Positive Affect Well Being T Score 63.61 57.39 Ability To Participate In Social Roles T Score 42 47.04 54.53 Satisfaction With Social Roles T Score 41 50.14 49.2 Neuro-QoL Symptoms (higher=worse symptoms) [facility] from 12/29/[address] [facility] Office Visit from 04/25/[address] [facility] Office Visit from 08/14/[address] [facility] Sleep Domain T Score 60 55.63 54.3 Fatigue Domain T Score 64 64.84 52.3 Anxiety Domain T Score 72 64.58 65.23 Depression Domain T Score 55 50.36 47.97 Stigma Domain T Score 51 50.07 48.56 Emotional Behavior Dyscontrol T Score 50.82 47.39 *NeuroQoL is a multi-domain patient-reported quality of life questionnaire. PHQ-9 [facility] from 09/27/2021 in [facility] from 07/06/2020 in [facility] PHQ-9 Score 5 8 *PHQ-9 is a questionnaire for depressive symptoms, with scores 0-4 indicating none, 5-9 mild, 10-14 moderate, 15-19 moderately severe, and 20-27 severe symptoms. PROMIS-10 Office Visit from 12/07/2021 in [facility] from 09/27/2021 in [facility] Global Physical Health T Score 42.3 47.7 [...] nursing intake documentation Vision: stable. 2019 lasik (). Just had eye exam PAST HISTORY was [...] (EXEP) 04/12/2021 EF=45%, mild syst dysf, trival IN, TI 2D ECHO (EXEP) 08/08/2021 EF=45%, no significant valve disease ANKLE ARTHROSCOPY/SURGERY Right ECHO LVEF 37% ECHOCARDIOGRAM 05/29/2017 LEXISCAN STRESS TEST 06/21/2020 EF=41% , changes consistent with previous IN, no new reversible ischemic areas. PAST SURGICAL [...] 5 Biceps 5 5 Triceps 5 5 Animal Trapper 5 5 Lower extremity: Iliopsoas 5 5 [...] D supplementation Follow-up: In 6 months at [place] or Virtual Visit with [facility] I spent a total of 30 minutes on the date of the service which included preparing to see the patient, [id number] patient care, completing clinical documentation, obtaining and/or reviewing separately obtained history, performing a medically appropriate examination, counseling and educating the patient/family/caregiver, ordering medications, tests, or procedures and communicating results to the patient/family/caregiver. Elder Chao PA-C documented in this encounter [facility] 06-04-2018 History of Past i llness Narrative Problem Noted Date Resolved Date Chest pain 06/04/2018 documented as of this encounter (statuses as of 12/27/2021) [facility] History of Past illness Narrative* Problem Noted Date Resolved Date Chest pain 06/04/2018 documented as of this encounter (statuses as of 01/15/2022) [facility] History of Past illness Narrative* Problem Noted Date Resolved Date Chest pain 06/04/2018 documented as of this encounter (statuses as of 01/16/2022) [facility] History of Past illness Narrative* Problem Noted Date Resolved Date Chest pain 06/04/2018 documented as of this encounter (statuses as of 02/28/2022) [address] History of Past illness Narrative* Problem Noted Date Resolved Date Chest pain 06/04/2018 documented as of this encounter (statuses as of 04/13/2022) [address]2018 History of Past illness Narrative* Problem Noted Date Resolved Date Chest pain 06/04/2018 documented as of this encounter (statuses as of 04/19/2022) [address]2018 History of Past illness Narrative* Problem Noted Date Resolved Date Chest pain 06/04/2018 documented as of this encounter (statuses as of 05/03/2022) [address]2018 History of Past illness Narrative* Problem Noted Date Resolved Date Chest pain 06/04/2018 documented as of this encounter (statuses as of 05/24/2022) [address]2018 History of Past illness Narrative* Problem Noted Date Resolved Date Chest pain 06/04/2018 documented as of this encounter (statuses as of 06/18/2022) [address]2018 History of Past illness Narrative* Problem Noted Date Resolved Date Chest pain 06/04/2018 documented as of this encounter (statuses as of 06/22/2022) [address]2018 History of Past illness Narrative* Problem Noted Date Resolved Date Chest pain 06/04/2018 documented as of this encounter (statuses as of 06/25/2022) [address]2018 History of Past illness Narrative* Problem Noted Date Resolved Date Chest pain 06/04/2018 documented as of this encounter (statuses as of 07/24/2022) [address]2018 History of Past illness Narrative* Problem Noted Date Resolved Date Chest pain 06/04/2018 documented as of this encounter (statuses as of 07/31/2022) [address]2018 History of Past illness Narrative* Problem Noted Date Resolved Date Chest pain 06/04/2018 documented as of this encounter (statuses as of 08/07/2022) [address]2018 History of Past illness Narrative* Problem Noted Date Resolved Date Chest pain 06/04/2018 documented as of this encounter (statuses as of 08/15/2022) [address]2018 History of Past illness Narrative* Problem Noted Date Resolved Date Chest pain 06/04/2018 documented as of this encounter (statuses as of 08/17/2022) [address] History of Past illness Narrative* Problem Noted Date Resolved Date Chest pain 06/04/2018 documented as of this encounter (statuses as of 08/28/2022) [place] [address] History of Past illness Narrative* Problem Noted Date Resolved Date Chest pain 06/04/2018 documented as of this encounter (statuses as of 09/21/2022) [place] [address] History of Past illness Narrative* Problem Noted Date Resolved Date Chest pain 06/04/2018 documented as of this encounter (statuses as of 10/15/2022) [address] History of Past illness Narrative* Problem Noted Date Resolved Date Chest pain 06/04/2018 documented as of this encounter (statuses as of 11/16/2022) [place] [address] History of Past illness Narrative* Problem Noted Date Resolved Date Chest pain 06/04/2018 documented as of this encounter (statuses as of 11/21/2022) [address] History of Past illness Narrative* Problem Noted Date Resolved Date Chest pain 06/04/2018 documented as of this encounter (statuses as of 12/07/2022) [address] History of Past illness Narrative* Problem Noted Date Resolved Date Chest pain 06/04/2018 documented as of this encounter (statuses as of 12/15/2022) [place] [address] History of Past illness Narrative* Problem Noted Date Resolved Date Chest pain 06/04/2018 documented as of this encounter (statuses as of 12/19/2022) [place] [address] History of Past illness Narrative* Problem Noted Date Resolved Date Chest pain 06/04/2018 documented as of this encounter (statuses as of 12/24/2022) [place] [address] History of Past illness Narrative* Problem Noted Date Resolved Date Chest pain 06/04/2018 documented as of this encounter (statuses as of 12/25/2022) [place] [address] History of Past illness Narrative* Problem Noted Date Resolved Date Chest pain 06/04/2018 documented as of this encounter (statuses as of 01/07/2023) [address] History of Past illness Narrative* Problem Noted Date Resolved Date Chest pain 06/04/2018 documented as of this encounter (statuses as of 01/10/2023) [address]2018 History of Past illness Narrative* Problem Noted Date Resolved Date Chest pain 06/04/2018 documented as of this encounter (statuses as of 01/11/2023) [address] History of Past illness Narrative* Problem Noted Date Resolved Date Chest pain 06/04/2018 documented as of this encounter (statuses as of 01/24/2023) [address]2018 History of Past illness Narrative* Problem Noted Date Resolved Date Chest pain 06/04/2018 documented as of this encounter (statuses as of 02/01/2023) [address]2018 History of Past illness Narrative* Problem Noted Date Resolved Date Chest pain 06/04/2018 documented as of this encounter (statuses as of 02/04/2023) [address]2018 History of Past illness Narrative* Problem Noted Date Resolved Date Chest pain 06/04/2018 documented as of this encounter (statuses as of 02/16/2023) [address]2018 History of Past illness Narrative* Problem Noted Date Resolved Date Chest pain 06/04/2018 documented as of this encounter (statuses as of 02/19/2023) [place] [address] History of Past illness Narrative* Problem Noted Date Resolved Date Chest pain 06/04/2018 documented as of this encounter (statuses as of 03/07/2023) [address]2018 History of Past illness Narrative* Problem Noted Date Resolved Date Chest pain 06/04/2018 documented as of this encounter (statuses as of 04/02/2023) [address]2018 History of Past illness Narrative* Problem Noted Date Diagnosed Date Resolved Date Chest pain 06/04/2018 documented as of this encounter (statuses as of 05/15/2023) [place] [address] History of Past illness Narrative* Problem Noted Date Diagnosed Date Resolved Date Chest pain 06/04/2018 documented as of this encounter (statuses as of 05/23/2023) [address]2018 History of Past illness Narrative* Problem Noted Date Diagnosed Date Resolved Date Chest pain 06/04/2018 documented as of this encounter (statuses as of 06/14/2023) [address]2018 History of Past illness Narrative* Problem Noted Date Diagnosed Date Resolved Date Chest pain 06/04/2018 documented as of this encounter (statuses as of 09/03/2023) [place] [address] History of Past illness Narrative* Problem Noted Date Diagnosed Date Resolved Date Chest pain 06/04/2018 documented as of this encounter (statuses as of 09/09/2023) [address]2018 History of Past illness Narrative* Problem Noted Date Diagnosed Date Resolved Date Chest pain 06/04/2018 documented as of this encounter (statuses as of 09/10/2023) [address] History of Past illness Narrative* Problem Noted Date Diagnosed Date Resolved Date Chest pain 06/04/2018 documented as of this encounter (statuses as of 09/10/2023) [address] History of Past illness Narrative* Problem Noted Date Diagnosed Date Resolved Date Chest pain 06/04/2018 documented as of this encounter (statuses as of 09/13/2023) [address]-2018 History of Past illness Narrative* Problem Noted Date Diagnosed Date Resolved Date Chest pain 06/04/2018 documented as of this encounter (statuses as of 09/13/2023) [address]-2018 History of Past illness Narrative* Problem Noted Date Diagnosed Date Resolved Date Chest pain 06/04/2018 documented as of this encounter (statuses as of 11/12/2023) [address]-2018 History of Past illness Narrative* Problem Noted Date Diagnosed Date Resolved Date Chest pain 06/04/2018 documented as of this encounter (statuses as of 01/24/2024) [address]-2018 History of Past illness Narrative* Problem Noted Date Diagnosed Date Resolved Date Chest pain 06/04/2018 documented as of this encounter (statuses as of 01/24/2024) [place] [address] History of Past illness Narrative* Problem Noted Date Diagnosed Date Resolved Date Chest pain 06/04/2018 documented as of this encounter (statuses as of 01/24/2024) [facility] Chief Complaint COVID-19 SINUS INFECTION LEFT SIDE THYROID FEELS VERY PROMINENT [facility] COVID/SYMPTOMATIC MS Reason for Visit Acute maxillary sinu sitis, unspecified Acute maxillary sinusitis, unspecified Contact with or suspected exposure to other viral communicable disease [facility] Work Phone: Evaluation note* Diagnosis Vitamin D deficiency- Primary Unspecified vitamin D deficiency Multiple sclerosis, relapsing-remitting (HCC) Multiple sclerosis Spasm Abnormal involuntary movements documented in this encounter [facility] note* Diagnosis Multiple sclerosis (HCC) [facility]* Diagnosis Onset Date Resolution Status Acute maxillary sinusitis, unspecified acute Acute maxillary sinusitis, unspecified acute Contact with or suspected ex posure to other viral communicable disease acute [facility] Work Phone: Evaluation note* Diagnosis Encounter for gynecological examination (general) (routine) without abnormal findings- Primary Surveillance for control, oral contraceptives Surveillance of previously prescribed contraceptive pill Obesity (BMI 35.0-39.9 without comorbidity) Obesity, unspecified documented in this encounter [facility] note* Diagnosis Multiple sclerosis (HCC) Multiple sclerosis [facility]* Diagnosis Surveillance for control, oral contraceptives Surveillance of previously prescribed contraceptive pill documented in this encounter [facility] note* Diagnosis Epigastric pain- Primary Abdominal pain, epigastric RUQ pain Abdominal pain, right upper quadrant documented in this encounter [facility] noteNo assessment information [facility]WShel[facility] Work Phone: Evaluation [facility]* Diagnosis Essential hypertension- Primary Unspecified essential [...] single bacterial disease documented in this encounter [facility] note* Diagnosis Cardiomyopathy, unspecified type (HCC) documented in this encounter [facility] note* Diagnosis Multiple sclerosis, relapsing-remitting (HCC) [facility] Diagnosis Depression, unspecified depression type- Primary [facility] Diagnosis Multiple sclerosis, relapsing-remitting (HCC)- Primary Multiple sclerosis [facility] Diagnosis Multiple sclerosis, relapsing-remitting (HCC) Multiple sclerosis [facility] Diagnosis Multiple sclerosis, relapsing-remitting (HCC) Multiple sclerosis [facility] Diagnosis Multiple sclerosis, relapsing-remitting (HCC) Multiple sclerosis [facility] Diagnosis Skin cancer screening- Primary Screening for malignant neoplasm of the skin [facility] Diagnosis Essential hypertension- Primary Unspecified essential hypertension GERD without esophagitis Esophageal reflux Postprocedural hypothyroidism Postsurgical hypothyroidism Medication management Encounter for long-term (current) use of other medications Encounter for screening for diabetes mellitus Screening for diabetes mellitus [facility] Diagnosis Well adult exam- Primary Routine [...] syndrome) Polycystic ovaries [facility]* Diagnosis Multiple sclerosis (HCC) Multiple sclerosis [facility] Diagnosis Postprocedural hypothyroidism- Primary Postsurgical hypothyroidism [facility]* Diagnosis Multiple sclerosis, relapsing-remitting (HCC) Multiple sclerosis [facility] Diagnosis Cardiomyopathy, unspecified type (HCC) Multiple sclerosis (HCC) Multiple sclerosis Encounter for immunization- Primary Need for other specified prophylactic vaccination against single bacterial disease [facility] Diagnosis Essential hypertension- Primary Unspecified essential [...] ear Impacted cerumen [facility]* Diagnosis Multiple sclerosis, relapsing-remitting (HCC) Multiple sclerosis [facility]* Diagnosis Cardiomyopathy, unspecified type (HCC) Multiple sclerosis (HCC) Multiple sclerosis [facility] Diagnosis Encounter for screening mammogram for breast cancer [facility]* Diagnosis Well adult exam- Primary Routine general medical examination at a [facility] facility Essential hypertension Unspecified essential hypertension [...] of other medications [facility]* Diagnosis Multiple sclerosis (HCC) Multiple sclerosis [facility]* Diagnosis Surveillance for control, oral contraceptives Surveillance of previously prescribed contraceptive pill [facility]* Diagnosis Multiple sclerosis, relapsing-remitting (HCC) Multiple sclerosis [facility]* Diagnosis Cardiomyopathy, unspecified type (HCC) documented in this encounter [facility] note* Diagnosis Multiple sclerosis, relapsing-remitting (HCC) Multiple sclerosis documented in this encounter [facility] note* Diagnosis Multiple sclerosis, relapsing-remitting (HCC) Multiple sclerosis documented in this encounter [facility] note* Diagnosis Multiple sclerosis (HCC) Multiple sclerosis documented in this encounter [facility] note* Diagnosis Multiple sclerosis (HCC) Multiple sclerosis Cardiomyopathy, unspecified type (HCC) documented in this encounter [facility] note* Diagnosis Essential hypertension- Primary Unspecified [...] for diabetes mellitus documented in this encounter [facility] note* Diagnosis Encounter for gynecological examination (general) (routine) without abnormal findings- Primary Surveillance for control, oral contraceptives Surveillance of previously prescribed contraceptive pill documented in this encounter [facility] note* Diagnosis Multiple sclerosis, relapsing-remitting (HCC)- Primary Multiple sclerosis documented in this encounter [facility] note* Diagnosis Cardiomyopathy, unspecified type (HCC) Multiple sclerosis (HCC) Multiple sclerosis documented in this encounter [facility] note* Diagnosis Multiple sclerosis (HCC)- Primary Multiple sclerosis documented in this encounter [facility] for referral (narrative)* Diagnostic Procedure Only (Routine) - Pending Review Specialty Diagnoses / Procedures Referred By Contsteven t Referred To Contact XR IMAGING Diagnoses Rib pain Procedures XR RIBS BILATERAL/CHEST 4V RADEX RIBS BI W/POSTEROANT CH MINIMUM 4 VIEWS Isael Fish MD [address] [place] [address] [place] [address] Referral ID Status Reason Start Date Expiration Date Visits Requested Visits Authorized [id number] Pending Review Auto-Generat ed Referral 09/11/2023 10/10/2024 1 1 [facility] Diagnostic Procedure Only (Routine) - Pending Review Specialty Diagnoses / Procedures Referred By Mary t Referred To Contact BR IMAGING Diagnoses Encounter for screening mammogram for breast cancer Procedures JONAS SCREENING SCREENING MAMMOGRAPHY BI 2-VIEW BREAST INC CAD Isael Fish MD [address] [place] [address] [facility] [address] [place] [address] Referral ID Status Reason Start Date Expiration Date Visits Requested Visits Authorized [id number] Pending Review Auto-Generat ed Referral 02/05/2024 03/06/2025 1 1 [facility] Summary Purpose Family History No Family [...] March 03, 2020 2 :26pm Power of Braid Maker No March 03, 2020 2:26pm Advance Directive Response Recorded Date/ Time Living Will No March 03, 2020 1 :26pm Power of Braid Maker No March 03, 2020 1:26pm Advance Directive Response Recorded Date/ Time Living Will No September 21, 2 022 9:06pm Power of Braid Maker No September 21, 2022 9:06pm Reason for Referral Specialty Diagnoses / Procedures Referred By Mary elizondo Referred To Contact MR IMAGING Diagnoses Multiple sclerosis, relapsing-remitting (HCC) Procedures MRI BRAIN WO/W IVCON MRI BRAIN BRAIN STEM W/O W/CONTRAST MATERIAL Elder Chao PA-C [address] [place] [address] Mr Imaging Referral ID Status Reason Start Date Expiration Date Visits Requested Visits Authorized [id number] Pending Review Auto-Generat ed Referral 12/27/2021 01/26/2023 1 1 Specialty Diagnoses / Procedures Referred By Contac t Referred To Contact Diagnoses Depression, unspecified depression type Procedures CONSULT TO PSYCHIATRY OFFICE/OUTPATIENT [facility] 60-74 MINUTES Isael Fish MD [address] [place] [id number] Referral ID Status Reason Start Date Expiration Date Visits Requested Visits Authorized [id number] Pending Review PCP Requested Referral 10/15/2022 10/15/2023 1 1 Referral ID Status Reason Start Date Expiration Date Visits Requested Visits Authorized [id number] Pending Review Auto-Generat ed Referral 12/06/2022 01/05/2024 1 1 Specialty Diagnoses / Procedures Referred By Contac t Referred To Contact Dermatology Diagnoses Skin cancer screening Procedures CONSULT TO DERMATOLOGY Isael Fish MD [address] [place] [id number] Referral ID Status Reason Start Date Expiration Date Visits Requested Visits Authorized [id number] Ref Not Required PCP Requested Referral 02/04/2023 02/04/2024 1 1 Specialty Diagnoses / Procedures Referred By Contac t Referred To Contact General Surgery Diagnoses GERD without esophagitis Procedures CONSULT TO GENERAL SURGERY OFFICE/OUTPATIENT [facility] 60-74 MINUTES Isael Fish MD [address] [place] [address] Referral ID Status Reason Start Date Expiration Date Visits Requested Visits Authorized [id number] Authorized PCP Requested Referral 03/06/2023 03/05/2024 1 1 Chief Complaint and Reason for Visit Chief Complaint RUQ PAIN Chief Complaint RUQ PAIN chest pain Additional Source Comments INFORMATION SOURCE (unrecogn ized section and content) DATE CREATED AUTHOR 06/07/2018 [facility] DATE CREATED AUTHOR AUTHOR'S ORGANIZ ATION 07/16/2018 [facility] DATE CREATED AUTHOR AUTHOR'S ORGANIZ ATION 02/14/2025 [facility] DATE CREATED AUTHOR AUTHOR'S ORGANIZ ATION 04/28/2025 [facility] Source Comments (unrecognize d section and content) In the event this informatio n is protected by the Federal Confidentiality of Alcohol and Drug Abuse Patient Records regulations: The Federal rules restrict any use of the information to criminally investigate or prosecute any alcohol or drug abuse patient.[facility] Hospital[facility] the event this information is protected by the Federal Confidentiality of Alcohol and Drug Abuse Patient Records regulations: The Federal rules restrict any use of the information to criminally investigate or prosecute any alcohol or drug abuse patient.[facility] HospitalIn the event this information is protected by the Federal Confidentiality of Alcohol and Drug Abuse Patient Records regulations: The Federal rules restrict any use of the information to criminally investigate or prosecute any alcohol or drug abuse patient.[facility] HospitalIn the event this information is protected by the Federal Confidentiality of Alcohol and Drug Abuse Patient Records regulations: The Federal rules restrict any use of the information to criminally investigate or prosecute any alcohol or drug abuse patient.[facility] HospitalIn the event this information is protected by the Federal Confidentiality of Alcohol and Drug Abuse Patient Records regulations: The Federal rules restrict any use of the information to criminally investigate or prosecute any alcohol or drug abuse patient.[facility] HospitalIn the event this information is protected by the Federal Confidentiality of Alcohol and Drug Abuse Patient Records regulations: The Federal rules restrict any use of the information to criminally investigate or prosecute any alcohol or drug abuse patient.[facility] HospitalIn the event this information is protected by the Federal Confidentiality of Alcohol and Drug Abuse Patient Records regulations: The Federal rules restrict any use of the information to criminally investigate or prosecute any alcohol or drug abuse patient.[facility] HospitalIn the event this information is protected by the Federal Confidentiality of Alcohol and Drug Abuse Patient Records regulations: The Federal rules restrict any use of the information to criminally investigate or prosecute any alcohol or drug abuse patient.[facility] HospitalIn the event this information is protected by the Federal Confidentiality of Alcohol and Drug Abuse Patient Records regulations: The Federal rules restrict any use of the information to criminally investigate or prosecute any alcohol or drug abuse patient.[facility] HospitalIn the event this information is protected by the Federal Confidentiality of Alcohol and Drug Abuse Patient Records regulations: The Federal rules restrict any use of the information to criminally investigate or prosecute any alcohol or drug abuse patient.[facility] HospitalIn the event this information is protected by the Federal Confidentiality of Alcohol and Drug Abuse Patient Records regulations: The Federal rules restrict any use of the information to criminally investigate or prosecute any alcohol or drug abuse patient.[facility] HospitalIn the event this information is protected by the Federal Confidentiality of Alcohol and Drug Abuse Patient Records regulations: The Federal rules restrict any use of the information to criminally investigate or prosecute any alcohol or drug abuse patient.[facility] HospitalIn the event this information is protected by the Federal Confidentiality of Alcohol and Drug Abuse Patient Records regulations: The Federal rules restrict any use of the information to criminally investigate or prosecute any alcohol or drug abuse patient.[facility] HospitalIn the event this information is protected by the Federal Confidentiality of Alcohol and Drug Abuse Patient Records regulations: The Federal rules restrict any use of the information to criminally investigate or prosecute any alcohol or drug abuse patient.[facility] HospitalIn the event this information is protected by the Federal Confidentiality of Alcohol and Drug Abuse Patient Records regulations: The Federal rules restrict any use of the information to criminally investigate or prosecute any alcohol or drug abuse patient.[facility] HospitalIn the event this information is protected by the Federal Confidentiality of Alcohol and Drug Abuse Patient Records regulations: The Federal rules restrict any use of the information to criminally investigate or prosecute any alcohol or drug abuse patient.[facility] HospitalIn the event this information is protected by the Federal Confidentiality of Alcohol and Drug Abuse Patient Records regulations: The Federal rules restrict any use of the information to criminally investigate or prosecute any alcohol or drug abuse patient.[facility] HospitalIn the event this information is protected by the Federal Confidentiality of Alcohol and Drug Abuse Patient Records regulations: The Federal rules restrict any use of the information to criminally investigate or prosecute any alcohol or drug abuse patient.[facility] HospitalIn the event this information is protected by the Federal Confidentiality of Alcohol and Drug Abuse Patient Records regulations: The Federal rules restrict any use of the information to criminally investigate or prosecute any alcohol or drug abuse patient.[facility] HospitalIn the event this information is protected by the Federal Confidentiality of Alcohol and Drug Abuse Patient Records regulations: The Federal rules restrict any use of the information to criminally investigate or prosecute any alcohol or drug abuse patient.[facility] HospitalIn the event this information is protected by the Federal Confidentiality of Alcohol and Drug Abuse Patient Records regulations: The Federal rules restrict any use of the information to criminally investigate or prosecute any alcohol or drug abuse patient.[facility] HospitalIn the event this information is protected by the Federal Confidentiality of Alcohol and Drug Abuse Patient Records regulations: The Federal rules restrict any use of the information to criminally investigate or prosecute any alcohol or drug abuse patient.[facility] HospitalIn the event this information is protected by the Federal Confidentiality of Alcohol and Drug Abuse Patient Records regulations: The Federal rules restrict any use of the information to criminally investigate or prosecute any alcohol or drug abuse patient.[facility] HospitalIn the event this information is protected by the Federal Confidentiality of Alcohol and Drug Abuse Patient Records regulations: The Federal rules restrict any use of the information to criminally investigate or prosecute any alcohol or drug abuse patient.[facility] HospitalIn the event this information is protected by the Federal Confidentiality of Alcohol and Drug Abuse Patient Records regulations: The Federal rules restrict any use of the information to criminally investigate or prosecute any alcohol or drug abuse patient.[facility] HospitalIn the event this information is protected by the Federal Confidentiality of Alcohol and Drug Abuse Patient Records regulations: The Federal rules restrict any use of the information to criminally investigate or prosecute any alcohol or drug abuse patient.[facility] HospitalIn the event this information is protected by the Federal Confidentiality of Alcohol and Drug Abuse Patient Records regulations: The Federal rules restrict any use of the information to criminally investigate or prosecute any alcohol or drug abuse patient.[facility] HospitalIn the event this information is protected by the Federal Confidentiality of Alcohol and Drug Abuse Patient Records regulations: The Federal rules restrict any use of the information to criminally investigate or prosecute any alcohol or drug abuse patient.[facility] HospitalIn the event this information is protected by the Federal Confidentiality of Alcohol and Drug Abuse Patient Records regulations: The Federal rules restrict any use of the information to criminally investigate or prosecute any alcohol or drug abuse patient.[facility] HospitalIn the event this information is protected by the Federal Confidentiality of Alcohol and Drug Abuse Patient Records regulations: The Federal rules restrict any use of the information to criminally investigate or prosecute any alcohol or drug abuse patient.[facility] HospitalIn the event this information is protected by the Federal Confidentiality of Alcohol and Drug Abuse Patient Records regulations: The Federal rules restrict any use of the information to criminally investigate or prosecute any alcohol or drug abuse patient.[facility] HospitalIn the event this information is protected by the Federal Confidentiality of Alcohol and Drug Abuse Patient Records regulations: The Federal rules restrict any use of the information to criminally investigate or prosecute any alcohol or drug abuse patient.[facility] HospitalIn the event this information is protected by the Federal Confidentiality of Alcohol and Drug Abuse Patient Records regulations: The Federal rules restrict any use of the information to criminally investigate or prosecute any alcohol or drug abuse patient.[facility] HospitalIn the event this information is protected by the Federal Confidentiality of Alcohol and Drug Abuse Patient Records regulations: The Federal rules restrict any use of the information to criminally investigate or prosecute any alcohol or drug abuse patient.[facility] HospitalIn the event this information is protected by the Federal Confidentiality of Alcohol and Drug Abuse Patient Records regulations: The Federal rules restrict any use of the information to criminally investigate or prosecute any alcohol or drug abuse patient.[facility] HospitalIn the event this information is protected by the Federal Confidentiality of Alcohol and Drug Abuse Patient Records regulations: The Federal rules restrict any use of the information to criminally investigate or prosecute any alcohol or drug abuse patient.[facility] HospitalIn the event this information is protected by the Federal Confidentiality of Alcohol and Drug Abuse Patient Records regulations: The Federal rules restrict any use of the information to criminally investigate or prosecute any alcohol or drug abuse patient.[facility] HospitalIn the event this information is protected by the Federal Confidentiality of Alcohol and Drug Abuse Patient Records regulations: The Federal rules restrict any use of the information to criminally investigate or prosecute any alcohol or drug abuse patient.[facility] HospitalIn the event this information is protected by the Federal Confidentiality of Alcohol and Drug Abuse Patient Records regulations: The Federal rules restrict any use of the information to criminally investigate or prosecute any alcohol or drug abuse patient.[facility] HospitalIn the event this information is protected by the Federal Confidentiality of Alcohol and Drug Abuse Patient Records regulations: The Federal rules restrict any use of the information to criminally investigate or prosecute any alcohol or drug abuse patient.[facility] HospitalIn the event this information is protected by the Federal Confidentiality of Alcohol and Drug Abuse Patient Records regulations: The Federal rules restrict any use of the information to criminally investigate or prosecute any alcohol or drug abuse patient.[facility] HospitalIn the event this information is protected by the Federal Confidentiality of Alcohol and Drug Abuse Patient Records regulations: The Federal rules restrict any use of the information to criminally investigate or prosecute any alcohol or drug abuse patient.[facility] HospitalIn the event this information is protected by the Federal Confidentiality of Alcohol and Drug Abuse Patient Records regulations: The Federal rules restrict any use of the information to criminally investigate or prosecute any alcohol or drug abuse patient.[facility] HospitalIn the event this information is protected by the Federal Confidentiality of Alcohol and Drug Abuse Patient Records regulations: The Federal rules restrict any use of the information to criminally investigate or prosecute any alcohol or drug abuse patient.[facility] HospitalIn the event this information is protected by the Federal Confidentiality of Alcohol and Drug Abuse Patient Records regulations: The Federal rules restrict any use of the information to criminally investigate or prosecute any alcohol or drug abuse patient.[facility] HospitalIn the event this information is protected by the Federal Confidentiality of Alcohol and Drug Abuse Patient Records regulations: The Federal rules restrict any use of the information to criminally investigate or prosecute any alcohol or drug abuse patient.[facility] HospitalIn the event this information is protected by the Federal Confidentiality of Alcohol and Drug Abuse Patient Records regulations: The Federal rules restrict any use of the information to criminally investigate or prosecute any alcohol or drug abuse patient.[facility] HospitalIn the event this information is protected by the Federal Confidentiality of Alcohol and Drug Abuse Patient Records regulations: The Federal rules restrict any use of the information to criminally investigate or prosecute any alcohol or drug abuse patient.[facility] HospitalIn the event this information is protected by the Federal Confidentiality of Alcohol and Drug Abuse Patient Records regulations: The Federal rules restrict any use of the information to criminally investigate or prosecute any alcohol or drug abuse patient.[facility] HospitalIn the event this information is protected by the Federal Confidentiality of Alcohol and Drug Abuse Patient Records regulations: The Federal rules restrict any use of the information to criminally investigate or prosecute any alcohol or drug abuse patient.[facility] HospitalIn the event this information is protected by the Federal Confidentiality of Alcohol and Drug Abuse Patient Records regulations: The Federal rules restrict any use of the information to criminally investigate or prosecute any alcohol or drug abuse patient.[facility] HospitalIn the event this information is protected by the Federal Confidentiality of Alcohol and Drug Abuse Patient Records regulations: The Federal rules restrict any use of the information to criminally investigate or prosecute any alcohol or drug abuse patient.[facility] HospitalIn the event this information is protected by the Federal Confidentiality of Alcohol and Drug Abuse Patient Records regulations: The Federal rules restrict any use of the information to criminally investigate or prosecute any alcohol or drug abuse patient.[facility] HospitalIn the event this information is protected by the Federal Confidentiality of Alcohol and Drug Abuse Patient Records regulations: The Federal rules restrict any use of the information to criminally investigate or prosecute any alcohol or drug abuse patient.[facility] HospitalIn the event this information is protected by the Federal Confidentiality of Alcohol and Drug Abuse Patient Records regulations: The Federal rules restrict any use of the information to criminally investigate or prosecute any alcohol or drug abuse patient.[facility] HospitalIn the event this information is protected by the Federal Confidentiality of Alcohol and Drug Abuse Patient Records regulations: The Federal rules restrict any use of the information to criminally investigate or prosecute any alcohol or drug abuse patient.[facility] HospitalIn the event this information is protected by the Federal Confidentiality of Alcohol and Drug Abuse Patient Records regulations: The Federal rules restrict any use of the information to criminally investigate or prosecute any alcohol or drug abuse patient.[facility] HospitalIn the event this information is protected by the Federal Confidentiality of Alcohol and Drug Abuse Patient Records regulations: The Federal rules restrict any use of the information to criminally investigate or prosecute any alcohol or drug abuse patient.[facility] HospitalIn the event this information is protected by the Federal Confidentiality of Alcohol and Drug Abuse Patient Records regulations: The Federal rules restrict any use of the information to criminally investigate or prosecute any alcohol or drug abuse patient.[facility] HospitalIn the event this information is protected by the Federal Confidentiality of Alcohol and Drug Abuse Patient Records regulations: The Federal rules restrict any use of the information to criminally investigate or prosecute any alcohol or drug abuse patient.[facility] HospitalIn the event this information is protected by the Federal Confidentiality of Alcohol and Drug Abuse Patient Records regulations: The Federal rules restrict any use of the information to criminally investigate or prosecute any alcohol or drug abuse patient.[facility] HospitalIn the event this information is protected by the Federal Confidentiality of Alcohol and Drug Abuse Patient Records regulations: The Federal rules restrict any use of the information to criminally investigate or prosecute any alcohol or drug abuse patient.[facility] HospitalIn the event this information is protected by the Federal Confidentiality of Alcohol and Drug Abuse Patient Records regulations: The Federal rules restrict any use of the information to criminally investigate or prosecute any alcohol or drug abuse patient.[facility] HospitalIn the event this information is protected by the Federal Confidentiality of Alcohol and Drug Abuse Patient Records regulations: The Federal rules restrict any use of the information to criminally investigate or prosecute any alcohol or drug abuse patient.[facility] HospitalIn the event this information is protected by the Federal Confidentiality of Alcohol and Drug Abuse Patient Records regulations: The Federal rules restrict any use of the information to criminally investigate or prosecute any alcohol or drug abuse patient.[facility] HospitalIn the event this information is protected by the Federal Confidentiality of Alcohol and Drug Abuse Patient Records regulations: The Federal rules restrict any use of the information to criminally investigate or prosecute any alcohol or drug abuse patient.[facility] HospitalIn the event this information is protected by the Federal Confidentiality of Alcohol and Drug Abuse Patient Records regulations: The Federal rules restrict any use of the information to criminally investigate or prosecute any alcohol or drug abuse patient.[facility] HospitalIn the event this information is protected by the Federal Confidentiality of Alcohol and Drug Abuse Patient Records regulations: The Federal rules restrict any use of the information to criminally investigate or prosecute any alcohol or drug abuse patient.[facility] HospitalIn the event this information is protected by the Federal Confidentiality of Alcohol and Drug Abuse Patient Records regulations: The Federal rules restrict any use of the information to criminally investigate or prosecute any alcohol or drug abuse patient.[facility] HospitalIn the event this information is protected by the Federal Confidentiality of Alcohol and Drug Abuse Patient Records regulations: The Federal rules restrict any use of the information to criminally investigate or prosecute any alcohol or drug abuse patient.[facility] HospitalIn the event this information is protected by the Federal Confidentiality of Alcohol and Drug Abuse Patient Records regulations: The Federal rules restrict any use of the information to criminally investigate or prosecute any alcohol or drug abuse patient.[facility] HospitalIn the event this information is protected by the Federal Confidentiality of Alcohol and Drug Abuse Patient Records regulations: The Federal rules restrict any use of the information to criminally investigate or prosecute any alcohol or drug abuse patient.[facility] HospitalIn the event this information is protected by the Federal Confidentiality of Alcohol and Drug Abuse Patient Records regulations: The Federal rules restrict any use of the information to criminally investigate or prosecute any alcohol or drug abuse patient.[facility] HospitalIn the event this information is protected by the Federal Confidentiality of Alcohol and Drug Abuse Patient Records regulations: The Federal rules restrict any use of the information to criminally investigate or prosecute any alcohol or drug abuse patient.[facility] HospitalIn the event this information is protected by the Federal Confidentiality of Alcohol and Drug Abuse Patient Records regulations: The Federal rules restrict any use of the information to criminally investigate or prosecute any alcohol or drug abuse patient.[facility] HospitalIn the event this information is protected by the Federal Confidentiality of Alcohol and Drug Abuse Patient Records regulations: The Federal rules restrict any use of the information to criminally investigate or prosecute any alcohol or drug abuse patient.[facility] HospitalIn the event this information is protected by the Federal Confidentiality of Alcohol and Drug Abuse Patient Records regulations: The Federal rules restrict any use of the information to criminally investigate or prosecute any alcohol or drug abuse patient.[facility] HospitalIn the event this information is protected by the Federal Confidentiality of Alcohol and Drug Abuse Patient Records regulations: The Federal rules restrict any use of the information to criminally investigate or prosecute any alcohol or drug abuse patient.[facility] HospitalIn the event this information is protected by the Federal Confidentiality of Alcohol and Drug Abuse Patient Records regulations: The Federal rules restrict any use of the information to criminally investigate or prosecute any alcohol or drug abuse patient.[facility] HospitalIn the event this information is protected by the Federal Confidentiality of Alcohol and Drug Abuse Patient Records regulations: The Federal rules restrict any use of the information to criminally investigate or prosecute any alcohol or drug abuse patient.[facility] Reason for Visit (unrecogniz ed section and content) Reason Comments Established Patient Follow-Up Reason Onset Date Comments Refill Request 01/15/2022 Reason Comments Opened In Error Reason Comments Well Woman Specialty Diagnoses / Procedures Referred By Mary t Referred To Contact Gynecology / COW TRIMMER Diagnoses Encounter for gynecological examination (general) (routine) without abnormal findings annual exam Procedures WELLNESS EXAMS EST 18-39 YRS EST I ANNUAL PATIENT 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, [email or web address] COLLECTOR [address] [place] [address] Referral ID Status Reason Start Date Expiration Date Visits Re quested Visits Authorized [id number] Closed 02/27/2022 10/06/2022 1 1 Reason Onset Date Comments Refill Request 04/13/2022 Reason Comments Refill Request Reason Onset Date Comments Refill Request 05/02/2022 Reason Comments Pain, Abdominal RUQ Specialty Diagnoses / Procedures Referred By Contac t Referred To Contact Family Practice / FAMILY MEDICINE Diagnoses Right upper quadrant pain RUQ pain Procedures OFFICE/OUTPATIENT ESTABLISHED MOD [facility] 30-39 MIN 4C EST Isael Fish MD [address] [place] [id number] Isael Fish MD [address] [place] [address] Referral ID Status Reason Start Date Expiration Date V isits Requested Visits Authorized [id number] Authorized 06/19/2022 10/06/2022 99 99 Reason Comments Results Reason Onset Date Comments Refill Request 07/24/2022 Reason Comments Forms FMLA Reason Comments F/U 6 months Specialty Diagnoses / Procedures Referred By Contac t Referred To Contact Family Medicine / FAMILY MEDICINE Diagnoses Right upper quadrant pain RUQ pain Procedures OFFICE/OUTPATIENT ESTABLISHED MOD [facility] 30-39 MIN 4C EST Isael Fish MD [address] [place] [address] Isael Fish MD [address] [place] [address] Reason Comments Results, Lab Reason Onset Date Comments Refill Request 12/19/2022 Reason Onset Date Comments Refill Request 12/23/2022 Reason Onset Date Comments Refill Request 12/24/2022 Reason Onset Date Comments Refill Request 01/05/2023 Reason Comments Outside [id number] Ordered Reason Comments Established Patient Follow-Up Reason [...] Care Teams (unrecognized sec tion and content) Senior Account Representative Relationship Specialty Start Date End Date Isael Fish MD [address] [place], [place] [id number] PCP - General Family Practice 03/14/16 [facility] Cardiology 12/24/16 Alfredito Hassan [address] [place] [phone] Electric Repair Supervisor Cardiology 06/08/20 Senior Account Representative Relationship Specialty Start Date End Date Isael Fish MD [address] [place], [place] [id number] PCP - General Family Practice 03/14/16 [facility] Cardiology 12/24/16 Alfredito Hassan [address] [place] [address] Electric Repair Supervisor Cardiology 06/08/20 Senior Account Representative Relationship Specialty Start Date End Date Isael Fish MD [address] [place], [place] [id number] PCP - General Family Practice 03/14/16 [facility] Cardiology 12/24/16 Alfredito Hassan [address] [place] [address] Electric Repair Supervisor Cardiology 06/08/20 Senior Account Representative Relationship Specialty Start Date End Date Isael Fish MD [address] [place] [address] PCP - General Family Practice 03/14/16 [facility] Cardiology 12/24/16 Alfredito Hassan [address] [place] [address] Electric Repair Supervisor Cardiology 06/08/20 Senior Account Representative Relationship Specialty Start Date End Date Isael Fish MD [address] [place] [address] PCP - General Family Practice 03/14/16 [facility] Cardiology 12/24/16 Alfredito Hassan [address] [place] [address] Electric Repair Supervisor Cardiology 06/08/20 Senior Account Representative Relationship Specialty Start Date End Date Isael Fish MD [address] [place] [address] PCP - General Family Practice 03/14/16 [facility] Cardiology 12/24/16 Alfredito Hassan [address] [place] [address] Electric Repair Supervisor Cardiology 06/08/20 Senior Account Representative Relationship Specialty Start Date End Date Isael Fish MD [address] [place] [address] PCP - General Family Practice 03/14/16 [facility] Cardiology 12/24/16 Alfredito Hassan [address] [place] [address] Electric Repair Supervisor Cardiology 06/08/20 Senior Account Representative Relationship Specialty Start Date End Date Isael Fish MD [address] [place] [address] PCP - General Family Practice 03/14/16 [facility] Cardiology 12/24/16 Alfredito Hassan [address] [place] [address] Electric Repair Supervisor Cardiology 06/08/20 Senior Account Representative Relationship Specialty Start Date End Date Isael Fish MD [address] [place] [address] PCP - General Family Practice 03/14/16 [facility] Cardiology 12/24/16 Alfredito Hassan [address] [place] [address] Electric Repair Supervisor Cardiology 06/08/20 Senior Account Representative Relationship Specialty Start Date End Date Isael Fish MD [address] [place] [address] PCP - General Family Practice 03/14/16 [facility] Cardiology 12/24/16 Alfredito Hassan [address] [place] [address] Electric Repair Supervisor Cardiology 06/08/20 Senior Account Representative Relationship Specialty Start Date End Date Isael Fish MD [address] [place] [address] PCP - General Family Medicine 03/14/16 [facility] 12/24/16 Alfredito Hassan [address] [place] [address] Electric Repair Supervisor Cardiology 06/08/20 Senior Account Representative Relationship Specialty Start Date End Date Isael Fish MD [address] [place] [address] PCP - General Family Medicine 03/14/16 [facility] 12/24/16 Alfredito Hassan [address] [place] [address] Electric Repair Supervisor Cardiology 06/08/20 Senior Account Representative Relationship Specialty Start Date End Date Isael Fish MD [address] [place] [address] PCP - General Family Medicine 03/14/16 [facility] Cardiology 12/24/16 Alfredito Hassan [address] [place] [address] Electric Repair Supervisor Cardiology 06/08/20 Senior Account Representative Relationship Specialty Start Date End Date Isael Fish MD [address] [place] [address] PCP - General Family Medicine 03/14/16 [facility] Card[facility] 12/24/16 Alfredito Hassan [address] [place] [address] Electric Repair Supervisor Cardiology 06/08/20 Senior Account Representative Relationship Specialty Start Date End Date Isael Fish MD [address] [place] [address] PCP - General Family Medicine 03/14/16 [facility] Cardiology 12/24/16 Alfredito Hassan [address] [facility] [place] [address] Electric Repair Supervisor Cardiology 06/08/20 Senior Account Representative Relationship Specialty Start Date End Date Isael Fish MD [address] [facility] [place] [address] PCP - General Family Medicine 03/14/16 Gary Riley [address] [facility] [place] [address] Cardiology 12/24/16 Alfredito Hassan [address] [facility] [place] [address] Electric Repair Supervisor Cardiology 06/08/20 Senior Account Representative Relationship Specialty Start Date End Date Isael Fish MD [address] [facility] [place] [address] PCP - General Family Medicine 03/14/16 Gary Riley [address] [facility] [place] [address] Cardiology 12/24/16 Alfredito Hassan [address] [facility] [place] [address] Electric Repair Supervisor Cardiology 06/08/20 Senior Account Representative Relationship Specialty Start Date End Date Isael Fish MD [address] [facility] [place] [address] PCP - General Family Medicine 03/14/16 Gary Riley [address] [facility] [place] [address] Cardiology 12/24/16 Alfredito Hassan [address] [facility] [address] Electric Repair Supervisor Cardiology 06/08/20 Senior Account Representative Relationship Specialty Start Date End Date Isael Fish MD [address] [facility] [place] [address] PCP - General Family Medicine 03/14/16 Gary Riley [address] [facility] [place] [address] Cardiology 12/24/16 Alfredito Hassan [address] [place] [address] Electric Repair Supervisor Cardiology 06/08/20 Senior Account Representative Relationship Specialty Start Date End Date Isael Fish MD [address] [place] [address] PCP - General Family Medicine 03/14/16 Gary Riley [address] [place] [address] Cardiology 12/24/16 Alfredito Hassan [address] [place] [address] Electric Repair Supervisor Cardiology 06/08/20 Senior Account Representative Relationship Specialty Start Date End Date Isael Fish MD [address] [place] [address] PCP - General Family Medicine 03/14/16 Gary Riley [address] [place] [address] Cardiology 12/24/16 Alfredito Hassan [address] [place] [address] Electric Repair Supervisor Cardiology 06/08/20 Senior Account Representative Relationship Specialty Start Date End Date Isael Fish MD [address] [place] [address] PCP - General Family Medicine 03/14/16 Gary Riley [address] [place] [address] Cardiology 12/24/16 Alfredito Hassan [address] [place] [address] Electric Repair Supervisor Cardiology 06/08/20 Senior Account Representative Relationship Specialty Start Date End Date Isael Fish MD [address] [place] [address] PCP - General Family Medicine 03/14/16 Gary Riley [address] [place] [address] Cardiology 12/24/16 Alfredito Hassan [address] [place] [address] Electric Repair Supervisor Cardiology 06/08/20 Senior Account Representative Relationship Specialty Start Date End Date Isael Fish MD [address] [place] [address] PCP - General Family Medicine 03/14/16 Gary Riley [address] [place] [address] Cardiology 12/24/16 Alfredito Hassan [address] [place] [address] Electric Repair Supervisor Cardiology 06/08/20 Senior Account Representative Relationship Specialty Start Date End Date Isael Fish MD [address] [place] [address] PCP - General Family Medicine 03/14/16 Gary Riley [address] [place] [address] Cardiology 12/24/16 Alfredito Hassan [address] [place] [address] Electric Repair Supervisor Cardiology 06/08/20 Senior Account Representative Relationship Specialty Start Date End Date Isael Fish MD [address] [place] [address] PCP - General Family Medicine 03/14/16 Gary Riley [address] [place] [address] Cardiology 12/24/16 Alfredito Hassan [address] [place] [address] Electric Repair Supervisor Cardiology 06/08/20 Senior Account Representative Relationship Specialty Start Date End Date Isael Fish MD [address] [place] [address] PCP - General Family Medicine 03/14/16 Gary Riley [address] [place] [address] Cardiology 12/24/16 Alfredito Hassan [address] [place] [address] Electric Repair Supervisor Cardiology 06/08/20 Senior Account Representative Relationship Specialty Start Date End Date Isael Fish MD [address] [place] [address] PCP - General Family Medicine 03/14/16 Gary Riley [address] [place] [address] Cardiology 12/24/16 Alfredito Hassan [address] [place] [address] Electric Repair Supervisor Cardiology 06/08/20 Senior Account Representative Relationship Specialty Start Date End Date Isael Fish MD [address] [place] [address] PCP - General Family Medicine 03/14/16 Gary Riley [address] [place] [address] Cardiology 12/24/16 Alfredito Hassan [address] [place] [address] Electric Repair Supervisor Cardiology 06/08/20 Senior Account Representative Relationship Specialty Start Date End Date Isael Fish MD [address] [place] [address] PCP - General Family Medicine 03/14/16 Gary Rilye [address] [place] [address] Cardiology 12/24/16 Alfredito Hassan MD [address] [place] [address] Electric Repair Supervisor Cardiology 06/08/20 Senior Account Representative Relationship Specialty Start Date End Date Isael Fish MD [address] [place] [address] PCP - General Family Medicine 03/14/16 Gary Riley [address] [place] [address] Cardiology 12/24/16 Alfredito Hassan MD [address] [place] [address] Electric Repair Supervisor Cardiology 06/08/20 Senior Account Representative Relationship Specialty Start Date End Date Isael Fish MD [address] [place] [address] PCP - General Family Medicine 03/14/16 Gary Riley [address] [place] [address] Cardiology 12/24/16 Alfredito Hassan MD [address] [place] [address] Electric Repair Supervisor Cardiology 06/08/20 Senior Account Representative Relationship Specialty Start Date End Date Isael Fish MD [address] [place] [address] PCP - General Family Medicine 03/14/16 Gary Riley [address] [place] [address] Cardiology 12/24/16 Alfredito Hassan MD [address] [place] [address] Electric Repair Supervisor Cardiology 06/08/20 Senior Account Representative Relationship Specialty Start Date End Date Isael Fish MD [address] [place] [address] PCP - General Family Medicine 03/14/16 Gary Riley [address] [place] [address] Cardiology 12/24/16 Alfredito Hassan MD [address] [place] [address] Electric Repair Supervisor Cardiology 06/08/20 Senior Account Representative Relationship Specialty Start Date End Date Isael Fish MD [address] [place] [address] PCP - General Family Medicine 03/14/16 Gary Riley [address] [place] [address] Cardiology 12/24/16 Alfredito Hassan MD [address] [place] [facility] [address] Electric Repair Supervisor Cardiology 06/08/20 Senior Account Representative Relationship Specialty Start Date End Date Isael Fish MD [address] [facility] [place] [address] PCP - General Family Medicine 03/14/16 Gary Riley [address] [facility] [place] [address] Cardiology 12/24/16 Alfredito Hassan MD [address] [place] [address] Electric Repair Supervisor Cardiology 06/08/20 Senior Account Representative Relationship Specialty Start Date End Date Isael Fish MD [address] [place] [address] PCP - General Family Medicine 03/14/16 Gary Riley [address] [facility] [place] [address] Cardiology 12/24/16 Alfredito Hassan MD [address] [place] [address] Electric Repair Supervisor Cardiology 06/08/20 Senior Account Representative Relationship Specialty Start Date End Date Isael Fish MD [address] [place] [address] PCP - General Family Medicine 03/14/16 Gary Riley [address] [facility] [place] [address] Cardiology 12/24/16 Alfredito Hassan MD [address] [place] [address] Electric Repair Supervisor Cardiology 06/08/20 Senior Account Representative Relationship Specialty Start Date End Date Isael Fish MD [address] [facility] [place] [address] PCP - General Family Medicine 03/14/16 Gary Riley [address] [facility] [place] [address] Cardiology 12/24/16 Alfredito Hassan MD [address] [facility] [place] [address] Electric Repair Supervisor Cardiology 06/08/20 Senior Account Representative Relationship Specialty Start Date End Date Isael Fish MD [address] [facility] [place] [address] PCP - General Family Medicine 03/14/16 Gary Riley [address] [facility] [place] [address] Cardiology 12/24/16 Alfredito Hassan MD [address] [facility] [place] [address] Electric Repair Supervisor Cardiology 06/08/20 Senior Account Representative Relationship Specialty Start Date End Date Isael Fish MD [address] [facility] [place] [address] PCP - General Family Medicine 03/14/16 Gary Riley [address] [facility] [place] [address] Cardiology 12/24/16 Alfredito Hassan MD [address] [facility] [place] [address] Electric Repair Supervisor Cardiology 06/08/20 Senior Account Representative Relationship Specialty Start Date End Date Isael Fish MD [address] [facility] [place] [address] PCP - General Family Medicine 03/14/16 Gary Riley [address] [facility] [place] [address] Cardiology 12/24/16 Alfredito Hassan MD [address] [facility] [place] [address] Electric Repair Supervisor Cardiology 06/08/20 Senior Account Representative Relationship Specialty Start Date End Date Isael Fish MD [address] [facility] [place] [address] PCP - General Family Medicine 03/14/16 Gary Riley [address] [facility] [place] [address] Cardiology 12/24/16 Alfredito Hassan MD [address] [facility] [place] [address] Electric Repair Supervisor Cardiology 06/08/20 Senior Account Representative Relationship Specialty Start Date End Date Isael Fish MD [address] [facility] [place] [address] PCP - General Family Medicine 03/14/16 Gary Riley [address] [facility] [place] [address] Cardiology 12/24/16 Alfredito Hassan MD [address] [facility] [place] [address] Electric Repair Supervisor Cardiology 06/08/20 Senior Account Representative Relationship Specialty Start Date End Date Isael Fish MD [address] [facility] [place] [address] PCP - General Family Medicine 03/14/16 Gary Riley [address] [facility] [place] [address] Cardiology 12/24/16 Alfredito Hassan MD [address] [facility] [place] [address] Electric Repair Supervisor Cardiology 06/08/20 Senior Account Representative Relationship Specialty Start Date End Date Isael Fish MD [address] [place] [address] PCP - General Family Medicine 03/14/16 Gary Riley [address] [place] [address] Cardiology 12/24/16 Alfredito Hassan MD [address] [place] [address] Electric Repair Supervisor Cardiology 06/08/20 Senior Account Representative Relationship Specialty Start Date End Date Isael Fish MD [address] [place] [address] PCP - General Family Medicine 03/14/16 Gary Riley [address] [place] [address] Cardiology 12/24/16 Alfredito Hassan MD [address] [place] [address] Electric Repair Supervisor Cardiology 06/08/20 Senior Account Representative Relationship Specialty Start Date End Date Isael Fish MD [address] [place] [address] PCP - General Family Medicine 03/14/16 Gary Riley [address] [place] [address] Cardiology 12/24/16 Alfredito Hassan MD [address] [facility] [place] [address] Electric Repair Supervisor Cardiology 06/08/20 Senior Account Representative Relationship Specialty Start Date End Date Isael Fish MD [address] [place] [address] PCP - General Family Medicine 03/14/16 Gary Riley [address] [place] [address] Cardiology 12/24/16 Alfredito Hassan MD [address] [place] [address] Electric Repair Supervisor Cardiology 06/08/20 Senior Account Representative Relationship Specialty Start Date End Date Isael Fish MD [address] [place] [address] PCP - General Family Medicine 03/14/16 Gary Riley [address] [place] [address] Cardiology 12/24/16 Alfredito Hassan MD [address] [place] [address] Electric Repair Supervisor Cardiology 06/08/20 Senior Account Representative Relationship Specialty Start Date End Date Isael Fish MD [address] [place] [address] PCP - General Family Medicine 03/14/16 Gary Riley [address] [facility] [place] [address] Cardiology 12/24/16 Alfredito Hassan MD [address] [place] [address] Electric Repair Supervisor Cardiology 06/08/20 Senior Account Representative Relationship Specialty Start Date End Date Iasel Fish MD [address] [facility] [place] [address] PCP - General Family Medicine 03/14/16 Gary Riley [address] [place] [address] Cardiology 12/24/16 Alfredito Hassan MD [address] [place] [address] Electric Repair Supervisor Cardiology 06/08/20 Senior Account Representative Relationship Specialty Start Date End Date Isael Fish MD [address] [place] [address] PCP - General Family Medicine 03/14/16 Gary Riley [address] [facility] [place] [address] Cardiology 12/24/16 Alfredito Hassan MD [address] [place] [address] Electric Repair Supervisor Cardiology 06/08/20 Senior Account Representative Relationship Specialty Start Date End Date Isael Fish MD [address] [place] [address] PCP - General Family Medicine 03/14/16 Gary Riley [address] [place] [address] Cardiology 12/24/16 Alfredito Hassan MD [address] [place] [address] Electric Repair Supervisor Cardiology 06/08/20 Senior Account Representative Relationship Specialty Start Date End Date Isael Fish MD [address] [place] [address] PCP - General Family Medicine 03/14/16 Gary Riley [address] [place] [address] Cardiology 12/24/16 Alfredito Hassan MD [address] [place] [address] Electric Repair Supervisor Cardiology 06/08/20 Romi Santana APRN.TELEPHONE COLLECTOR [address] [place] [address] [facility] 09/12/24 Bing Ruff PA-C [address] [place] [address] [facility] 09/12/24 Senior Account Representative Relationship Specialty Start Date End Date Isael Fish MD [address] [place] [address] PCP - General Family Medicine 03/14/16 Gary Riley [address] [place] [address] Cardiology 12/24/16 Alfredito Hassan MD [address] [place] [address] Electric Repair Supervisor Cardiology 06/08/20 Romi Santana APRN.TELEPHONE COLLECTOR [address] [place], [place] [address] [facility] 09/12/24 Bing Ruff PA-C [address] [place] [address] Turnaround Engineer Family Medicine 09/12/24 Senior Account Representative Relationship Specialty Start Date End Date Isael Fish MD [address] [place] [address] PCP - General Family Medicine 03/14/16 Gary Riley [address] [place] [address] Cardiology 12/24/16 Alfredito Hassan MD [address] [place] [address] Electric Repair Supervisor Cardiology 06/08/20 Romi Santana APRN.TELEPHONE COLLECTOR [address] [place] [address] Turnaround Engineer Family [facility] 09/12/24 Bing Ruff PA-C [address] [place] [address] Turnaround Engineer Family Medicine 09/12/24 Senior Account Representative Relationship Specialty Start Date End Date Isael Fish MD [address] [place] [address] PCP - General Family Medicine 03/14/16 Gary Riley [address] [facility] [place] [address] Cardiology 12/24/16 Alfredito Hassan MD [address] [place] [address] Electric Repair Supervisor Cardiology 06/08/20 Romi Santana APRN.TELEPHONE COLLECTOR [address] [place] [address] Turnaround Engineer Family Medicine 09/12/24 Bing Ruff PA-C [address] [facility] [place] [address] [facility] 09/12/24 Senior Account Representative Relationship Specialty Start Date End Date Isael Fish MD [address] [facility] [place] [address] PCP - General Family Medicine 03/14/16 Gary Riley [address] [facility] [place] [address] Cardiology 12/24/16 Alfredito Hassan MD [address] [facility] [place] [address] Electric Repair Supervisor Cardiology 06/08/20 Romi Santana APRN.TELEPHONE COLLECTOR [address] [facility] [place] [address] [facility] 09/12/24 Bing Ruff PA-C [address] [facility] [place] [address] [facility] 09/12/24 Senior Account Representative Relationship Specialty Start Date End Date Isael Fish MD [address] [facility] [place] [address] PCP - General Family Medicine 03/14/16 Gary Riley [address] [facility] [place] [address] Cardiology 12/24/16 Alfredito Hassan MD [address] [facility] [place] [address] Electric Repair Supervisor Cardiology 06/08/20 Romi Santana APRN.TELEPHONE COLLECTOR [address] [place] [address] Turnaround Engineer Family [facility] 09/12/24 Bing Ruff PA-C [address] [place] [address] Turnaround Engineer Family [facility] 09/12/24 Senior Account Representative Relationship Specialty Start Date End Date Isael Fish MD [address] [place] [address] PCP - General Family Medicine 03/14/16 Gary Riley [address] [place] [address] Cardiology 12/24/16 Alfredito Hassan MD [address] [place] [address] Electric Repair Supervisor Cardiology 06/08/20 Romi Santana APRN.CNP [address] [place] [address] [facility] 09/12/24 Bing Ruff PA-C [address] [place] [address] Turnaround Engineer [facility] 09/12/24 Senior Account Representative Relationship Specialty Start Date End Date Isael Fish MD [address] [place] [address] PCP - General Family Medicine 03/14/16 Gary Riley [address] [place] [address] Cardiology 12/24/16 Alfredito Hassan MD [address] [place] [address] Electric Repair Supervisor Cardiology 06/08/20 Romi Santana APRN.TELEPHONE COLLECTOR [address] [place], [place] [address] [facility] 09/12/24 Bign Ruff PA-C [facility] [place], [place] [address] [facility] 09/12/24 Senior Account Representative Relationship Specialty Start Date End Date Isael Fish MD [facility] [place], [place] [address] PCP - General Family Medicine 03/14/16 Gary Riley [address] [place] [address] Cardiology 12/24/16 Alfredito Hassan MD [address] [place] [address] Electric Repair Supervisor Cardiology 06/08/20 Romi Santana APRN.TELEPHONE COLLECTOR [address] [place] [address] [id number] [facility] 09/12/24 Bing Ruff PA-C [address] [place], [place] [address] [facility] 09/12/24 Goals (unrecognized section and content) Goals [...] BE BASED ON THE PRIMARY CLINICAL RECORDS. [employer] [facility]. provides no warranty or guarantee of the accuracy or completeness of information in this document.
[2025-05-25 07:38] LABS: Hematocrit 38.8 % (37-47); Hemoglobin 13.3 g/dL (12.0-15.0); Immature Granulocytes Count 0.020 X10^3/uL (0.0-0.0); Mean Corp Hgb Conc 34.3 g/dL (32-36); Mean Corpuscular Volume 86.6 fL (81-99); Mean Platelet Vol. 10.5 fl (6.2-12.0); NRBC Flagged by Analyzer 0 % (0-5); Platelet Count 284 K/mm3 (150-450); RBC Distribution Width CV 13.2 % (11.6-14.6); RBC Distribution Width SD 41.3 fl (35.1-43.9); Red Blood Count 4.48 M/mm3 (4.2-5.4); White Blood Count 5.0 K/mm3 (4.4-11.0)
[2025-05-25 07:39] LABS: Color, Urine Yellow (Yellow); Glucose, Dipstick Normal (Normal); Ketone-Dipstick Negative (Negative); Leukocyte Esterase-Dipstick 25 /ul (Negative); Nitrite-Dipstick Negative (Negative); Occult Blood-Urine Negative /ul (Negative); Protein-Dipstick 15 mg/dl (Negative); Specific Gravity, Urine 1.015 (1.002-1.030); Urine Bilirubin Dipstick Negative (Negative)
[2025-05-25 07:49] LABS: Mucous, Urine RARE /hpf (<or=2+); Squamous Epithelial Cells - UA 5-10 SEEN /hpf (5-10)
[2025-05-25 09:08] LABS: Cholesterol 190 mg/dL (<=200); Low Density Lipoprotein Calc. 96 mg/dL; Magnesium 2.3 mg/dL (1.5-2.2); Triglycerides 179 mg/dL; Very Low Density Lipoprotein 36 mg/dL (5-40); cholesterol:hdl ratio screen 3.24
[2025-05-25 09:46] LABS: Vitamin B12 > 4000 pg/mL (180-914)
== END | disposition home or self-care (01) ==
LOC: LAB 06:47
PROVIDERS: PCP Family Medicine; Referring Provider Family Medicine; Visit Provider Family Medicine
DX: Z13.1 Encounter for screening for diabetes mellitus (principal); E89.0 Postprocedural hypothyroidism; I10 Essential (primary) hypertension; E78.2 Mixed hyperlipidemia; K21.9 Gastro-esophageal reflux disease without esophagitis; Z79.899 Other long term (current) drug therapy
CPT/HCPCS: 36415; 80061; 81001; 82607; 83036; 83735; 84443; 85025

== ENCOUNTER → 2025-06-02 | Outpatient (CLI) | payer OTHER, SELFPAY ==
[2025-06-02 08:55] LABS: AST(SGOT) 19 U/L (<=31); Alanine Aminotransfer ALT/SGPT 14 U/L (<=34); Albumin, Serum 4.3 g/dL (3.5-5.0); Alkaline Phosphatase 50 U/L (35-104); Anion Gap 10 (5-15); BUN 13 mg/dL (4-19); BUN/Creat Ratio 18.5 RATIO (10-20); Calcium,Total 8.8 mg/dL (7.6-11.0); Carbon Dioxide 23.2 mmol/L (21.0-32.0); Chloride 103 mmol/L (98-108); Globulin 3.1 g/dL (2.2-4.2); Glucose 97 mg/dL (70-99); Potassium 4.5 mmol/L (3.3-5.1)
== END | disposition home or self-care (01) ==
LOC: LAB 07:24
PROVIDERS: PCP Family Medicine; Referring Provider Family Medicine; Visit Provider Family Medicine
DX: I10 Essential (primary) hypertension (principal); E78.2 Mixed hyperlipidemia
CPT/HCPCS: 36415; 80053

== ENCOUNTER → 2025-07-28 | Outpatient (CLI) | payer OTHER, SELFPAY ==
[2025-07-28 17:29] LABS: Cholesterol 187 mg/dL (<=200); Low Density Lipoprotein Calc. 96 mg/dL; Triglycerides 172 mg/dL; Very Low Density Lipoprotein 34 mg/dL (5-40); cholesterol:hdl ratio screen 3.01
== END | disposition home or self-care (01) ==
LOC: LAB.FUTURE 15:33 → LAB 15:33
PROVIDERS: PCP Family Medicine; Referring Provider Family Medicine; Visit Provider Family Medicine
DX: E78.2 Mixed hyperlipidemia (principal); I10 Essential (primary) hypertension
CPT/HCPCS: 36415; 80061; 84443